=== PATIENT | male | born 1945 | race Caucasian/White ===

== ENCOUNTER 2018-09-06 08:45 | Outpatient (REF) | payer MEDICARE, OTHER, SELFPAY ==
[2018-09-06 12:16] LABS: HCT 47.9 % (40.0-50.0); HGB 16.1 g/dL (13.5-17.5); Mean Corp. HGB Concentration 33.6 g/dL (32.0-36.0); Mean Corpuscular Hemoglobin 31.7 pg (27.0-33.0); Mean Corpuscular Volume 94.3 fL (80-95); Mean Platelet Volume 11.2 fL (8.0-11.0); Platelet Count 173 x1000/uL (130-400); RBC 5.08 m/cumm (4.50-6.00); RBC Distribution Width 12.7 % (11.8-14.1); White Blood Cell Count 5.56 k/cumm (4.4-10.8)
[2018-09-06 13:04] LABS: ALT 36 U/L (12-78); AST 25 U/L (15-37); Albumin 3.9 g/dL (3.4-5.0); Alkaline Phosphatase 65 U/L (46-116); Anion Gap 6.4 mmol/L (3-11); BUN 19 mg/dL (7-18); Bilirubin, Total 0.9 mg/dL (0.2-1.0); CO2 31.6 mmol/L (21.0-32.0); Calcium 9.5 mg/dL (8.5-10.1); Chloride 105 mmol/L (98-107); Cholesterol 198 mg/dL (50-200); Glucose 108 mg/dL (70-100); HDL Cholesterol 53 mg/dL (40-60); LDL CHOLESTEROL 118 mg/dL (<100); Potassium 4.6 mmol/L (3.5-5.1); Sodium 143 mmol/L (136-145); Total Protein 7.2 g/dL (6.4-8.2); Triglyceride 124 mg/dL (30-150)
== END 2018-09-06 09:05 ==
LOC: NCHCN 08:45
PROVIDERS: PCP Internal Medicine; Visit Provider Internal Medicine
DX: I48.0 Paroxysmal atrial fibrillation (principal); K76.0 Fatty (change of) liver, not elsewhere classified; E78.5 Hyperlipidemia, unspecified
CPT/HCPCS: 80053; 80061; 83721; 85027

== ENCOUNTER 2018-09-16 00:59 | Outpatient (CLI) | payer MEDICARE, OTHER, SELFPAY ==
--- NOTE | 2018-09-16 12:00 | DI.MRI_ITS ---
SYMPTOMS/DIAGNOSIS: LUMBAR SPINAL STENOSIS, M48.06 MRI OF THE LUMBAR SPINE: Routine noncontrast examination. Comparison 12/28/14. The conus medullaris has a normal appearance and location. At L 5 - S 1 there is disc desiccation. There is a diffuse disc bulge and a small central disc herniation. There are hypertrophic changes of the facets. These all contribute to cause mild narrowing of the central spinal canal. There is moderate right and mild left neural foraminal stenosis. At L 4 - 5 there does appear to be grade I pseudospondylolisthesis of L 4 on L 5. Disc desiccation is present. There are endplate osteophytes and degenerative endplate signal changes. There is a diffuse disc bulge. There are hypertrophic changes of the facets and ligament of flavum. These all contribute to cause severe central canal spinal stenosis. There is also severe right and moderately severe left neural foraminal stenosis. There does appear to be compression of the exiting nerve roots bilaterally right greater than left. At L 3 - 4 there is disc desiccation. Endplate degenerative signal changes and osteophytes are present. There is a diffuse disc bulge. There are hypertrophic changes of the facets and ligament of flavum causing severe central spinal canal stenosis. There is moderately severe right and moderate left neural foraminal stenosis. There does appear to be compression of right exiting nerve root. At L 2 - 3 there is a diffuse disc bulge. There is degenerative disc disease and endplate degenerative signal changes. There is severe central canal spinal stenosis which results. Mild left neural foraminal stenosis is seen. No significant right neural foraminal stenosis is present. At L 1 - 2 there is a diffuse disc bulge. There are hypertrophic changes of the facets and ligament of flavum causing moderate to severe central spinal canal stenosis. Mild left neural foraminal stenosis is seen. Apart from the degenerative endplate signal changes, the marrow signal is within normal limits. IMPRESSION: Multi-level degenerative changes of the lumbar spine resulting in multi-level central spinal canal and neural foraminal stenosis. The findings are most marked at L 3 - 4 and L 4 - 5. Please see the above discussion for complete details.
== END 2018-09-16 01:19 ==
PROVIDERS: PCP Internal Medicine; Visit Provider Internal Medicine
DX: M48.07 Spinal stenosis, lumbosacral region (principal); M51.27 Other intervertebral disc displacement, lumbosacral region
CPT/HCPCS: 72148

== ENCOUNTER → 2018-10-17 09:52 | Outpatient (BNVA) | payer MEDICARE, OTHER, SELFPAY | PROVIDERS: PCP Internal Medicine; Referring Provider Internal Medicine; Visit Provider Physical Therapy Assistant | DX: Z12.11 Encounter for screening for malignant neoplasm of colon (principal); Z86.010 Personal history of colon polyps; Z79.01 Long term (current) use of anticoagulants; I10 Essential (primary) hypertension; I48.91 Unspecified atrial fibrillation ==

== ENCOUNTER 2018-11-11 07:04 | Day surgery (SDC) | payer MEDICARE, OTHER, SELFPAY ==
[2018-11-11 07:15] VITALS: BP 112/77; PULSE 70; RESP 16; TEMP 35.7; O2SAT 97
[2018-11-11] MEDS: Lactated Ringers 1,000 ML 80 ML IV (07:46)
--- NOTE | 2018-11-11 08:31 | BOWEL_PTH ---
PATIENT: Nakul Sam LOC: [facility] U#:[id number] AGE/SX: 73/M ROOM: RE11/11/[address]: Marisol Florence : 1945 BED: DIS: 11/11/2018 SPEC #: [id number] RECD: 11/11/18 11:54 STATUS: CLARISSA REQ #: [id number] VENICE: 11/11/18 08:[address]: Marisol Florence DEPT: Surgical Specimen RECD BY: Maisha Roman ENTERED: 11/11/18 11:57 SP TYPE: Bowel OTHR DR: Garcia Gonzales Tissues: 1 - BIOPSY BOWEL 2 - BIOPSY BOWEL 3 - BIOPSY BOWEL 4 - BIOPSY BOWEL 5 - HEMORRHOIDS Procedures: GROSS AND MICRO LEVEL 4 GROSS AND MICRO LEVEL 3 Comments: [id number]
[2018-11-11] MEDS: Bupivacaine LIPOSOME/PF 133 MG/10 ML VIAL IJ (09:21)
--- NOTE | 2018-11-11 09:32 | PDOC.DSDIS_ITS ---
Discharge Plan Disposition Patient Disposition: HOME Condition: Good Discharge Details Reason For Visit: CE for polyps Attending Provider: Marisol Florence Primary Care Provider: Garcia Gonzales Home Meds and New Rx's Prescriptions: New dibucaine 1 % ointment 1 applic [place] QID PRN (Reason: rectal discomfort) Qty: 56.7 RF: 5 sennosides-docusate sodium [Senna Laxative-Stool Softener] 8.6-50 mg tablet 1 tab PO BID Qty: 60 RF: 5 ibuprofen 600 mg tablet 600 mg PO QID PRN (Reason: deidra) Qty: 60 RF: 3 oxycodone 5 mg tablet 5 mg PO Q6H PRN PRN (Reason: p) Qty: 10 RF: 0 Continued ipratropium bromide 0.03 % spray,non-aerosol 2 spray CICI BID PRNRF: 0 sildenafil 100 mg tablet 100 mg PO DAILY PRNRF: 0 atorvastatin 10 mg tablet 10 mg PO HS RF: 0 metoprolol succinate 25 mg cap,sprinkle,ER 24hr dose pack 25 mg PO HS RF: 0 bisacodyl [Dulcolax (bisacodyl)] 5 mg tablet,delayed release (DR/EC) 5 mg PO ONCE Qty: 4 RF: 0 cholecalciferol (vitamin D3) 1,000 UNITS tablet 1,000 unit PO DAILY RF: 0 Ocuvite with Lutein 1 EACH tablet 1 tab PO DAILY RF: 0 Discontinued Eliquis 5 mg tablet 5 mg PO BID RF: 0 polyethylene glycol 3350 17 gram/dose powder 238 g PO ONCE Qty: 238 RF: 0 Discharge Instructions Instructions: High Fiber Diet (GEN) Additional Instructions: Home Care Instructions after Rectal Surgery Pain/muscle spasms are normal after surgery. Use the prescribed pain medications, valium and topical creams. Do not use any other creams unless specifically prescribed for you. Do not take the pain medication and valium at the same time. It takes oral pain meds an hour to take effect. Do not get behind on your pain meds. You can alternate with NSAID?s (ibuprofen -600mg) every 8 hours. Take with food; do not take if you have ulcers or sensitivity to aspirin. Constipation occurs with the use of narcotic pain medications. The first bowel movement after surgery will be painful. Do not let yourself get constipated. Stay on a stool softener while you are on the narcotics. It is recommended that you use a fiber supplement (Metamucil, Citrucel) daily (1 tablespoon in 8 oz of water). If you do not have a bowel movement daily, use Milk of Magnesia or Miralax. It is normal to have bleeding or drainage after rectal surgery; especially when you move your bowels. Use a sanitary napkin to collect the discharge. If you are passing large clots or having to change the pad more than every 4 hours, call the clinic or go to the ER. You may experience spasms in the rectal muscles. This is normal after surgery and last for about two weeks. They can become more intense with bowel movements. You can use the valium as a muscle relaxant (do not take at the same time as the pain medications). You can also try sitz bathes (sitting in a bath tub of PLAIN lukewarm water; soap can add to rectal irritation). Or you can try ice packs. You will have to see what works best for you. It is ok to shower. Avoid soap on the surgical area. Use a pillow to sit on. Follow a mild bland diet. Avoid alcohol, spicy food, citrus, and tomatoes. Avoid strenuous activity (running, jogging, and power walking, swimming, weight lifting) for two weeks. No lifting over 5 pounds for 2 weeks[address] if taking pain medications, or cannot turn or twist your body without hesitation. You can return to work when you are no longer taking the pain meds, can sit comfortably for 8 hours or when the weight restrictions are lifted. Urinary retention is common. Sit in a warm tub to try to relax the bladder. If you are unable to urinate after 8 hours, call the office or go to the ER. If you have packing in place, follow the directions for doing the dressing changes. If you have stitches in place, they will fall out in about 7-10 days. They may develop an ?odor?. Follow up in 2 weeks- call the office for an appointment. After hours= ER: Home Care Instructions after Rectal Surgery Pain/muscle spasms are normal after surgery. Use the prescribed pain medications, valium and topical creams. Do not use any other creams unless specifically prescribed for you. Do not take the pain medication and valium at the same time. It takes oral pain meds an hour to take effect. Do not get behind on your pain meds. You can alternate with NSAID?s (ibuprofen -600mg) every 8 hours. Take with food; do not take if you have ulcers or sensitivity to aspirin. Constipation occurs with the use of narcotic pain medications. The first bowel movement after surgery will be painful. Do not let yourself get constipated. Stay on a stool softener while you are on the narcotics. It is recommended that you use a fiber supplement (Metamucil, Citrucel) daily (1 tablespoon in 8 oz of water). If you do not have a bowel movement daily, use Milk of Magnesia or Miralax. It is normal to have bleeding or drainage after rectal surgery; especially when you move your bowels. Use a sanitary napkin to collect the discharge. If you are passing large clots or having to change the pad more than every 4 hours, call the clinic or go to the ER. You may experience spasms in the rectal muscles. This is normal after surgery and last for about two weeks. They can become more intense with bowel movements. You can use the valium as a muscle relaxant (do not take at the same time as the pain medications). You can also try sitz bathes (sitting in a bath tub of PLAIN lukewarm water; soap can add to rectal irritation). Or you can try ice packs. You will have to see what works best for you. It is ok to shower. Avoid soap on the surgical area. Use a pillow to sit on. Follow a mild bland diet. Avoid alcohol, spicy food, citrus, and tomatoes. Avoid strenuous activity (running, jogging, and power walking, swimming, weight lifting) for two weeks. No lifting over 5 pounds for 2 weeks. No [address] if taking pain medications, or cannot turn or twist your body without hesitation. You can return to work when you are no longer taking the pain meds, can sit comfortably for 8 hours or when the weight restrictions are lifted. Urinary retention is common. Sit in a warm tub to try to relax the bladder. If you are unable to urinate after 8 hours, call the office or go to the ER. If you have packing in place, follow the directions for doing the dressing changes. If you have stitches in place, they will fall out in about 7-10 days. They may develop an ?odor?. Follow up in 2 weeks- call the office for an appointment, _ After hours= ER: _ Home Care Instructions after Rectal Surgery Pain/muscle spasms are normal after surgery. Use the prescribed pain medications, valium and topical creams. Do not use any other creams unless specifically prescribed for you. Do not take the pain medication and valium at the same time. It takes oral pain meds an hour to take effect. Do not get behind on your pain meds. You can alternate with NSAID?s (ibuprofen -600mg) every 8 hours. Take with food; do not take if you have ulcers or sensitivity to aspirin. Constipation occurs with the use of narcotic pain medications. The first bowel movement after surgery will be painful. Do not let yourself get constipated. Stay on a stool softener while you are on the narcotics. It is recommended that you use a fiber supplement (Metamucil, Citrucel) daily (1 tablespoon in 8 oz of water). If you do not have a bowel movement daily, use Milk of Magnesia or Miralax. It is normal to have bleeding or drainage after rectal surgery; especially when you move your bowels. Use a sanitary napkin to collect the discharge. If you are passing large clots or having to change the pad more than every 4 hours, call the clinic or go to the ER. You may experience spasms in the rectal muscles. This is normal after surgery and last for about two weeks. They can become more intense with bowel movements. You can use the valium as a muscle relaxant (do not take at the same time as the pain medications). You can also try sitz bathes (sitting in a bath tub of PLAIN lukewarm water; soap can add to rectal irritation). Or you can try ice packs. You will have to see what works best for you. It is ok to shower. Avoid soap on the surgical area. Use a pillow to sit on. Follow a mild bland diet. Avoid alcohol, spicy food, citrus, and tomatoes. Avoid strenuous activity (running, jogging, and power walking, swimming, weight lifting) for two weeks. No lifting over 5 pounds for 2 weeks. No driving if taking pain medications, or cannot turn or twist your body without hesitation. You can return to work when you are no longer taking the pain meds, can sit com fortably for 8 hours or when the weight restrictions are lifted. Urinary retention is common. Sit in a warm tub to try to relax the bladder. If you are unable to urinate after 8 hours, call the office or go to the ER. If you have packing in place, follow the directions for doing the dressing changes. If you have stitches in place, they will fall out in about 7-10 days. They may develop an ?odor?. Follow up in 2 weeks- call the office for an appointment, _ After hours= ER: _ Findings: multiple polyps diverticular Dx thrombosed hemorrhoid Follow up: Dr. Florence next Please call if you develop: fevers >101.5 Nausea or Vomiting Abdominal pain that is not transient DAY SURGERY UNIT POST COLONOSCOPY INSTRUCTIONS Do not take elequis/blood thinners until follow up appt -see instruction sheet/instructions for care after hemorrhoid surgery 1. Because there will be medication in your system for the next 24 hours, you may feel a little sleepy. Your coordination will be affected. Therefore: a. Do not drive or operate dangerous equipment for 24 hours. b. Do not drink alcohol beverages for 24 hours (not even beer). c. Plan to go home and rest for the day. 2. Generally there are no restrictions on your activity after a day or so has gone by, but you may feel a bit fatigued for a few days. 3 After you arrive home you may have a light meal and return to a normal diet as you can tolerate it without feeling sick to your stomach. 4. After surgery, you may feel pain or discomfort. This should be only transient, but if it persists please contact your doctor. 5. If there are any questions regarding the findings of your procedure, please feel free to contact your doctor. 6. If you are unable to contact your doctor with a problem, contact the hospital at [phone]. 7. Continue all your regular medications unless directed otherwise. I understand the above instructions and have no questions. Signature of Patient or Responsible Adult Escort Date/Time Name of Responsible Adult Escort Signature of Nurse Date/Time Activity:: see above Diet:: As Tolerated Discharge Orders Discharge Orders: Discharge Order (Routine); Ordered 11/11/18 Ordered By: Marisol Florence Discharge Data Discharge Date/Time-TO BE ENTERED AT DEPARTURE: 11/11/18 11:45 Discharge Comment: DC'D HOME WITH S.O. STABLE. DS: Diagnosis Discharge Diagnosis (1) Adenomatous polyps: Status: Acute (2) Diverticular disease of colon: Status: Acute (3) Thrombosed external hemorrhoid: Status: Acute (4) Internal hemorrhoids with complication: Status: Acute
--- NOTE | 2018-11-11 09:52 | COLE_ITS ---
Date of service: 11/11/18 Time of Service: 09:51 Colonoscopy Report Date of procedure: 11/11/18 Pre-op diagnosis general: A. polyps Post-op diagnosis procedure note: other (diverticular Dx. Thrombosed Ext hem. I. hemorrhoids ) Procedure: CE w/polypectomy x10. x2 hot snare. x8 cold biter drainage of thrombosed hemorrhoid and banding of internal hemorrhoid. Pt stated that he did have chronic anal leakage. His PT told him he had hemorrhoids. Pt dis express that he did want to have something done about hemorrhoids prior to going back for CE. Surgeon: Marisol Florence Anesthesia proc note operative: GETA Estimated blood loss (mL): 5 Pathology: other Complications: None Disposition: same day Prep: Miralax Retraction Time: 20 mins Procedure Description: After informed consent was obtained the patient was taken to the procedure room and placed in a left decubitous position. Monitors were applied and a time out was done. The patients name, date of , procedure, allergies to medications and metal in their body was reviewed. The patient was then sedated. Once sedated and comfortable a rectal exam was done. External exam was normal. He has a medium thromboses ext. hemorrhoid Internal exam revealed a normal sphincter tone and no palpable masses. Grade III internal hemorrhoids x3 The scope was then introduced and retrofelexed. The scope was then advanced to the cecum without difficulty. The TI and appendiceal orifice were identified. The prep was good. The scope was then slowly retracted over 20 minutes back into the rectum. Polyps were removed at cecum w/ hot snare. polyps x6 at 80cm/ascending colon w/ cold biter. Polyps at 70cm/ascending cold w/ cold biter. Splenic flexure polyp at 50cm w/ hot snare. all specimen is retrieved and no bleeding is noted. He does have moderate diverticular Dx confined to the sigmoid colon- no active infection or bleeding. The thrombosed hemorrhoid and internal hemorrhoids are addressed in a separate noted. The scope was removed and the patient was woken up and taken back to Same day surgery in stable condition. The patient tolerated the procedure well and there were no immediate complicat ions. Follow up: The patient should follow up in 1 years unless they develop changes in bowel habits or other new gastrointestinal complaints. no asa/nsaid's for 2 wks pt given instructions for hemorhoidal care
[2018-11-11 10:00] VITALS: BP 115/74; PULSE 85; RESP 18; TEMP 35.6; O2SAT 100
--- NOTE | 2018-11-16 08:15 | ROE_ITS ---
REPORT OF OPERATIVE PROCEDURE DATE OF PROCEDURE November 11, 2018 PREOPERATIVE DIAGNOSIS Anal leakage. POSTOPERATIVE DIAGNOSES Thrombosed external hemorrhoid and grade III internal hemorrhoids. SURGEON Marisol Florence M.D. ANESTHESIA MAC/General. ESTIMATED BLOOD LOSS 5 cc COMPLICATIONS The patient tolerated the procedure well without complication. INDICATIONS Mr. Sam is a 73-year-old male who is here today for a colonoscopy. He indicated that he has had some problems with anal leakage and would like to have this taken care of. At the time of his colonoscopy, he was found to have a large thrombosed external hemorrhoid and some large internal hemorrhoids as well. So, I decided to perform banding and excision of the thrombosed hemorrhoids and that the global consent did cover this. DESCRIPTION OF PROCEDURE The area was prepped and draped in the usual sterile fashion using Betadine scrub solution. The area was infiltrated with 10 cc of 0.25% Marcaine with epi. The thrombosed hemorrhoid was then opened up and then tissue excised. All the clot was removed and it was closed with #3-0 Vicryl in a running fashion, this was at the 11 o'clock position. He also had three internal hemorrhoids and these were banded. No bleeding was noted. The patient tolerated the procedure well and was transferred to the Recovery Room in stable condition. CC: Garcia Gonzales M.D.
== END 2018-11-11 11:45 | disposition home or self-care (01) ==
PROVIDERS: PCP Internal Medicine; Visit Provider Surgery
PROC: 0DJD8ZZ Inspection of Lower Intestinal Tract, Via Natural or Artificial Opening Endoscopic (ICD-10-PCS; CPT 45378; principal; 2018-11-11 08:15)
PROC: (CPT 45385; 2018-11-11 08:15)
DX: Z12.11 Encounter for screening for malignant neoplasm of colon (principal); K64.2 Third degree hemorrhoids; Z79.01 Long term (current) use of anticoagulants; Z86.010 Personal history of colon polyps; D12.0 Benign neoplasm of cecum; D12.2 Benign neoplasm of ascending colon; D12.3 Benign neoplasm of transverse colon; K64.5 Perianal venous thrombosis
CPT/HCPCS: 45385; 45380; 88305; 88304; J2405

== ENCOUNTER → 2018-11-17 10:12 | Outpatient (BNVA) | payer MEDICARE, OTHER, SELFPAY | PROVIDERS: PCP Internal Medicine; Referring Provider Internal Medicine; Visit Provider Surgery | DX: K64.8 Other hemorrhoids (principal); K64.5 Perianal venous thrombosis ==

== ENCOUNTER → 2018-12-05 10:30 | Outpatient (BNVA) | payer MEDICARE, OTHER, SELFPAY | PROVIDERS: PCP Internal Medicine; Referring Provider Internal Medicine; Visit Provider Surgery | DX: Z48.815 Encounter for surgical aftercare following surgery on the digestive system (principal); K64.8 Other hemorrhoids ==

== ENCOUNTER 2018-12-08 00:40 | Outpatient (CLI) | payer MEDICARE, OTHER, SELFPAY ==
--- NOTE | 2018-12-08 10:54 | DI.MRI_ITS ---
SYMPTOMS/DIAGNOSIS: CERVICAL ARTHRITIS WITH MYELOPATHY, M47.12 MRI OF THE CERVICAL SPINE: Routine examination was performed. There are no priors for comparison. At C 2 - 3 there is no focal disc herniation, central spinal canal or neural foraminal stenosis. At C 3 - 4 there is no focal disc herniation, central spinal canal or neural foraminal stenosis. At C 4 - 5 there are degenerative changes seen at the uncovertebral joints resulting in moderate right and mild left neural foraminal narrowing. There is mild central spinal canal stenosis. There is 0.3 cm of anterior subluxation of C 4 on C 5. At C 5 - 6 there is prominence of the osteophyte disc complex with mild narrowing of the central spinal canal. There are degenerative changes of the uncovertebral joints bilaterally causing mild bilateral neural foraminal stenosis. At C 6 - 7 there is no significant central spinal canal or neural foraminal stenosis. At C 7 - T 1 there is mild anterior subluxation of C 7 on T 1. There is prominence of the osteophyte disc complex. There are degenerative changes of the uncovertebral joint and ligament of flavum hypertrophy causing moderately severe central spinal canal stenosis. There is severe bilateral neural foraminal stenosis present. There is effacement of the spinal cord but normal signal is present. At T 1 - 2 there is mild anterior subluxation of T 1 on T 2. There is prominence of the osteophyte disc complex and degenerative changes of the uncovertebral joints. The findings cause severe central spinal canal stenosis. There is compression of the spinal cord with minimal increased T 2 signal seen within the spinal cord at this level. Bilateral neural foraminal stenosis is present. IMPRESSION: 1. Multi-level severe degenerative changes in the lower lumbar spine as described. 2. The findings are most marked at T 1 - 2 where there is severe central spinal canal and neural foraminal stenosis resulting in spinal cord compression and mild hyperintense T 2 signal within the spinal cord. This may represent cord edema vs myelomalacic change.
--- NOTE | 2018-12-08 16:54 | DI.VRAD_ITS ---
Addendum created by Robert Anthony MD on 12/08/2018 5:45:21 PM EDT Findings were discussed with Dr. Gomes at 12/08/2018 5:44 PM EDT. Addendum created by Robert Anthony MD on 12/08/2018 5:25:53 PM EDT THIS REPORT CONTAINS FINDINGS THAT MAY BE CRITICAL TO PATIENT CARE. The findings were verbally communicated via telephone conference with Dr. Gonzales at 5:25 PM EDT on 12/08/2018. The findings were acknowledged and understood. Initial report created on 12/08/2018 4:53:14 PM EDT EXAM: MR Cervical Spine Without Contrast EXAM DATE/TIME: 12/08/2018 10:47 AM CLINICAL HISTORY: 73 years old, male; Signs and symptoms; Other: Cervical arthritis w/ myelopathy TECHNIQUE: Imaging protocol: Multiplanar magnetic resonance images of the cervical spine without contrast. COMPARISON: No relevant prior studies available. FINDINGS: Cervical vertebral body heights are intact. Straightening of the cervical lordosis. The dens is intact. No abnormal marrow signal. Degenerative 3-0.3 cm anterior subluxation of C4 on C5. Degenerative 0.4 cm anterior subluxation of C7 on T1 and T1 on T2. Visualized structures of the posterior fossa are unremarkable. Soft tissues are unremarkable. C2-C3: No significant canal or foraminal narrowing. C3-C4: No significant canal or foraminal narrowing. C4-C5: Uncovertebral spurring causes moderate right and mild left foraminal narrowing. Mild canal narrowing. C5-C6: Broad-based disc protrusion and uncovertebral spurring causing mild canal narrowing and mild bilateral foraminal narrowing. C6-C7: No significant canal or foraminal narrowing. C7-T1: Combination of anterior subluxation, broad-based disc protrusion, thickening of the ligamentum flavum, and uncovertebral spurring causes severe canal narrowing with slight effacement of the anterior spinal cord. Severe bilateral foraminal narrowing. T1-T2: Combination of anterior subluxation, broad-based disc protrusion, thickening of the ligamentum flavum, and facet arthropathy causes severe canal narrowing with mild compression of the spinal cord and minimal central abnormal T2 hyperintense cord signal. Severe bilateral foraminal narrowing. IMPRESSION: Severe spondylotic changes of the visualized spine from C6 through T2, with severe canal narrowing and mild cord compression at T1-T2. Minimal central abnormal T2 hyperintense cord signal at the T1-T2 level, concerning for cord edema versus myelomalacic change. Dictated and Authenticated by: Robert Anthony MD. Ordering:CINTHIA Nation MD
== END 2018-12-08 01:00 ==
PROVIDERS: PCP Internal Medicine; Visit Provider Neurological Surgery
DX: M47.12 Other spondylosis with myelopathy, cervical region (principal); M48.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, cervicothoracic region
CPT/HCPCS: 72141

== ENCOUNTER 2018-12-30 17:05 | Outpatient (REF) | payer MEDICARE, OTHER, SELFPAY ==
[2018-12-30 21:18] LABS: HCT 44.8 % (40.0-50.0); HGB 15.1 g/dL (13.5-17.5); Mean Corp. HGB Concentration 33.7 g/dL (32.0-36.0); Mean Corpuscular Hemoglobin 31.4 pg (27.0-33.0); Mean Corpuscular Volume 93.1 fL (80-95); Mean Platelet Volume 11.8 fL (8.0-11.0); Platelet Count 167 x1000/uL (130-400); RBC 4.81 m/cumm (4.50-6.00); RBC Distribution Width 12.7 % (11.8-14.1); White Blood Cell Count 6.32 k/cumm (4.4-10.8)
[2018-12-30 21:22] LABS: Anion Gap 11.8 mmol/L (3-11); BUN 17 mg/dL (7-18); CO2 25.2 mmol/L (21.0-32.0); CREATININE 0.72 mg/dL (0.70-1.30); Calcium 8.7 mg/dL (8.5-10.1); Chloride 106 mmol/L (98-107); Glucose 100 mg/dL (70-100); Potassium 4.1 mmol/L (3.5-5.1); Sodium 143 mmol/L (136-145)
[2018-12-30 21:23] LABS: INR 1.1 (0.9-1.1); Prothrombin Time 10.9 sec (9.3-11.0)
== END 2018-12-30 17:25 ==
LOC: NCHCN 17:05
PROVIDERS: PCP Internal Medicine; Visit Provider Internal Medicine
DX: I48.0 Paroxysmal atrial fibrillation (principal); Z79.01 Long term (current) use of anticoagulants; I10 Essential (primary) hypertension; Z22.322 Carrier or suspected carrier of Methicillin resistant Staphylococcus aureus; M48.062 Spinal stenosis, lumbar region with neurogenic claudication; M48.02 Spinal stenosis, cervical region; Z01.818 Encounter for other preprocedural examination
CPT/HCPCS: 80048; 85027; 87081; 85610

== ENCOUNTER 2019-01-03 00:47 | Outpatient (CLI) | payer MEDICARE, OTHER, SELFPAY ==
--- NOTE | 2019-01-03 10:12 | DI.RAD_ITS ---
SYMPTOM/DIAGNOSIS: CERVICAL SPINE STENOSIS M48.02 PA AND LATERAL CHEST: 01/03/19 The heart is normal in size. The lungs are clear. The mediastinal structures and pleura appear intact. CONCLUSION: Normal chest.
== END 2019-01-03 01:07 ==
PROVIDERS: PCP Internal Medicine; Visit Provider Internal Medicine
DX: M48.02 Spinal stenosis, cervical region (principal)
CPT/HCPCS: 71046

== ENCOUNTER 2019-05-01 12:42 | Outpatient (REF) | payer MEDICARE, OTHER, SELFPAY ==
[2019-05-01 20:39] LABS: HCT 46.7 % (40.0-50.0); HGB 15.5 g/dL (13.5-17.5); Mean Corp. HGB Concentration 33.2 g/dL (32.0-36.0); Mean Corpuscular Hemoglobin 29.9 pg (27.0-33.0); Mean Platelet Volume 11.2 fL (8.0-11.0); Platelet Count 186 x1000/uL (130-400); RBC 5.19 m/cumm (4.50-6.00); RBC Distribution Width 14.2 % (11.8-14.1); White Blood Cell Count 5.96 k/cumm (4.4-10.8)
[2019-05-01 20:45] LABS: INR 1.1 (0.9-1.1); Prothrombin Time 10.9 sec (9.3-11.0)
[2019-05-01 20:46] LABS: Anion Gap 12.1 mmol/L (3-11); BUN 21 mg/dL (7-18); CO2 24.9 mmol/L (21.0-32.0); CREATININE 0.73 mg/dL (0.70-1.30); Calcium 8.9 mg/dL (8.5-10.1); Chloride 107 mmol/L (98-107); Glucose 124 mg/dL (70-100); Sodium 144 mmol/L (136-145)
== END 2019-05-01 13:02 ==
LOC: NCHCN 12:42
PROVIDERS: PCP Internal Medicine; Visit Provider Specialist/Technologist Athletic Trainer
DX: I48.0 Paroxysmal atrial fibrillation (principal); M48.02 Spinal stenosis, cervical region; Z01.818 Encounter for other preprocedural examination
CPT/HCPCS: 80048; 85027; 85610

== ENCOUNTER 2019-07-03 12:36 | Outpatient (REF) | payer MEDICARE, OTHER, SELFPAY ==
[2019-07-03 21:19] LABS: HCT 35.4 % (40.0-50.0); HGB 11.2 g/dL (13.5-17.5); Mean Corp. HGB Concentration 31.6 g/dL (32.0-36.0); Mean Corpuscular Hemoglobin 27.9 pg (27.0-33.0); Mean Corpuscular Volume 88.3 fL (80-95); Mean Platelet Volume 10.5 fL (8.0-11.0); Platelet Count 312 x1000/uL (130-400); RBC 4.01 m/cumm (4.50-6.00); RBC Distribution Width 13.3 % (11.8-14.1); White Blood Cell Count 7.09 k/cumm (4.4-10.8)
[2019-07-03 21:52] LABS: Anion Gap 9.8 mmol/L (3-11); BUN 14 mg/dL (7-18); CO2 27.2 mmol/L (21.0-32.0); CREATININE 0.75 mg/dL (0.70-1.30); Chloride 106 mmol/L (98-107); Glucose 138 mg/dL (74-106); Potassium 3.8 mmol/L (3.5-5.1); Sodium 143 mmol/L (136-145)
== END 2019-07-03 12:56 ==
LOC: NCHCN 12:36
PROVIDERS: PCP Internal Medicine; Visit Provider Internal Medicine
DX: D50.0 Iron deficiency anemia secondary to blood loss (chronic) (principal); I48.0 Paroxysmal atrial fibrillation; E87.1 Hypo-osmolality and hyponatremia; R10.31 Right lower quadrant pain
CPT/HCPCS: 80048; 85027

== ENCOUNTER 2019-09-06 16:21 | Outpatient (REF) | payer MEDICARE, OTHER, SELFPAY ==
[2019-09-06 22:30] LABS: HCT 38.9 % (40.0-50.0); HGB 12.2 g/dL (13.5-17.5); Mean Corp. HGB Concentration 31.4 g/dL (32.0-36.0); Mean Corpuscular Hemoglobin 24.8 pg (27.0-33.0); Mean Corpuscular Volume 79.2 fL (80-95); Mean Platelet Volume 10.8 fL (8.0-11.0); Platelet Count 234 x1000/uL (130-400); RBC 4.91 m/cumm (4.50-6.00); RBC Distribution Width 15.8 % (11.8-14.1); White Blood Cell Count 6.49 k/cumm (4.4-10.8)
[2019-09-06 22:45] LABS: Anion Gap 9.9 mmol/L (3-11); BUN 21 mg/dL (7-18); CO2 26.1 mmol/L (21.0-32.0); CREATININE 0.76 mg/dL (0.70-1.30); Calcium 7.8 mg/dL (8.5-10.1); Chloride 106 mmol/L (98-107); Glucose 92 mg/dL (74-106); Potassium 3.9 mmol/L (3.5-5.1); Sodium 142 mmol/L (136-145)
[2019-09-06 22:48] LABS: Bacteria Rare HPF (Negative); Crystals Negative HPF (Negative); Epithelial Cells Few HPF (Negative); Mucus Negative (Negative); RBC >50 HPF (0-2)
[2019-09-06 22:49] LABS: C & S Indicated? C&S Done As Ordered
[2019-09-08 10:18] LABS: PSA, Diagnostic 5.1 ng/mL (0.0-6.5)
== END 2019-09-06 16:41 ==
LOC: NCHCN 16:21
PROVIDERS: PCP Internal Medicine; Visit Provider Specialist/Technologist Athletic Trainer
DX: R31.9 Hematuria, unspecified (principal); R10.32 Left lower quadrant pain
CPT/HCPCS: 80048; 85027; 81015; 84153; 87086

== ENCOUNTER 2019-09-07 01:36 | Outpatient (CLI) | payer MEDICARE, OTHER, SELFPAY ==
--- NOTE | 2019-09-07 12:42 | DI.US_ITS ---
EXAM: US RENAL CLINICAL HISTORY: FLANK PAIN, R10.9, LT > RT WITH HEMATUIRA. TECHNIQUE: Mast scale, color and spectral Doppler were used. COMPARISON: No exams were available for comparison FINDINGS: Renal size in cm: Right: 12.1 left: 11.0 Echogenicity: Normal Hydronephrosis: No Cyst or mass: Small bilateral renal cysts, the largest at the upper pole of the right kidney measurin g 2.1 cm. Nephrolithiasis: No No perinephric collections are seen. Bladder:Not well evaluated due to poor distension on prevoid images. Prevoid vol: 24 cc Postvoid vol:0 cc IMPRESSION: No evidence of hydronephrosis. No renal calculi are visible. DATA REPOSITORY:
== END 2019-09-07 01:56 ==
PROVIDERS: PCP Internal Medicine; Visit Provider Specialist/Technologist Athletic Trainer
DX: R10.32 Left lower quadrant pain (principal); R31.9 Hematuria, unspecified; N28.1 Cyst of kidney, acquired
CPT/HCPCS: 76770

== ENCOUNTER 2019-09-13 02:13 | Outpatient (CLI) | payer MEDICARE, OTHER, SELFPAY ==
[2019-09-13] MEDS: Omnipaque 350 MG/ML 100 ML BTL IJ (10:31)
[2019-09-13] MEDS: Normal Saline - Diluent 50 ML VIAL IV (10:36)
--- NOTE | 2019-09-13 10:42 | DI.CT_ITS ---
EXAM: CT ABDOMEN PELVIS WO/W CLINICAL HISTORY: GROSS HEMATURIA, R31.0 TECHNIQUE: CT examination of the abdomen and pelvis was performed utilizing CT urogram protocol. COMPARISON: No exams were available for comparison FINDINGS: Images obtained through the lung bases are unremarkable. The liver, spleen, and pancreas appear int act. Note is made of cholelithiasis without biliary dilatation. Abdominal aorta and major branches are unremarkable. No significant abdominal wall hernia. No signi ficant abdominal or pelvic adenopathy. Appendix appears normal. No evidence of diverticulitis or netta wel obstruction. The adrenals appear normal bilaterally. Right kidney contains a simple cyst measuring 2.7 cm in diam eter. Left kidney contains multiple small intermediate attenuation lesions including an approximatel y 15 millimeter in diameter medial midpole lesion with attenuation about 43 lateral midpole lesion me asuring about 11 mm in 29 Hounsfield units, these do appear to enhance on the venous phase images. These have appearance raising possibility of small renal malignancy. Close follow-up or tissue sampl ing may be considered. No hydronephrosis on the right. No right renal or ureteral calculi. On the left there is no gross hydronephrosis. The distal ureter is mildly dilated and there is an ap proximately 5 millimeter in diameter stone which appears to be associated with the left ureterovesica l orifice, question focal wall thickening also associated with this area, obstruction and/or underlyi ng bladder wall lesion may be considered. Bladder is incompletely distended and has a questionably m ildly thickened wall which is nonspecific. IMPRESSION: 1. Slight left hydroureter which appears to be associated with a UVJ stone measuring about 5 millimet ers in diameter, question bladder wall mass at this site is also raised and cystoscopy is recommended . 2. Two indeterminate left renal cortical lesions are seen which have characteristics which may repres ent small renal malignancy. Additional evaluation with tissue sampling or close follow-up recommended .
== END 2019-09-13 02:33 ==
PROVIDERS: PCP Internal Medicine; Visit Provider Specialist/Technologist Athletic Trainer
DX: R31.0 Gross hematuria (principal); K80.20 Calculus of gallbladder without cholecystitis without obstruction; N13.4 Hydroureter; N20.0 Calculus of kidney; N28.1 Cyst of kidney, acquired; N28.89 Other specified disorders of kidney and ureter
CPT/HCPCS: 74178; J3490

== ENCOUNTER → 2019-10-12 10:32 | Outpatient (BNVA) | payer MEDICARE, OTHER, SELFPAY | PROVIDERS: PCP Internal Medicine; Referring Provider Internal Medicine; Visit Provider Nurse Practitioner Gerontology | DX: N40.1 Benign prostatic hyperplasia with lower urinary tract symptoms (principal); N32.89 Other specified disorders of bladder; N20.0 Calculus of kidney; R31.0 Gross hematuria | CPT/HCPCS: 81003; 99204; 99215 ==

== ENCOUNTER 2019-10-16 09:45 | Day surgery (SDC) | payer MEDICARE, OTHER, SELFPAY ==
--- NOTE | 2019-10-16 08:15 | W.PM.HP.N ---
Assessment and Plan Assessment and plan (1) Hematuria: Status: Acute Assessment and plan: We will do a cystoscopy to evaluate the bladder lesion. he will need a left retrograde pyelogram and ureteroscopy if no visible bladder tumor is seen. History of Present Illness History of Present Illness Chief Complaint: Abnormal CT scan Narrative: This is a 74-year-old gentleman who had noticed gross hematuria and left flank pain. He had been on chronic anticoagulation for atrial fibrillation. His hematuria stopped with discontinuing the anticoagulant. He did pass some gelatinous material but he has not passed a stone as far as he can tell. He has no prior history of kidney stones. He was evaluated with a CT scan which demonstrated increased tissue at the left trigone with a centrally occurring calcification. It is unclear whether this represents a stone surrounded by edema or a ureterocele, or whether this finding is more suspicious for a bladder cancer. He presents now for cystoscopy with possible transurethral resection of bladder tumor and possible stone manipulation. Review of Systems Narrative: No fevers or chills No vision change or dysphasia No diabetes or thyroid No shortness of breath, cough or hemoptysis No chest pain or palpitations No nausea, vomiting, hepatitis, ulcers, jaundice, diarrhea or constipation No seizures Easy bleeding from Eliquis No gout. Chronic cervical and lumbar issues [facility] Social History (Updated 10/17/18 @ 12:35 by DAVIN Spence) Smoking/Tobacco Use Status: Former Tobacco Use Quit Date: 10/26/77 Alcohol Intake: current Alcohol Intake frequency: 3 or more drinks per day Alcohol type: hard liquor Drug use: Never Substance use type: does not use Do you feel safe at home: Yes Do you feel safe in your relationship?: Yes Meds Home Medications and Allergies Home Medications Medication Instructions Recorded Confirmed Type Ocuvite with Lutein 1 tab PO DAILY 09/25/12 10/16/19 History cholecalciferol (vitamin D3) 1,000 unit PO DAILY 09/25/12 10/16/19 History atorvastatin 10 mg tablet 10 mg PO HS 09/26/18 10/16/19 History ipratropium bromide 0.03 % nasal 2 spray CIIC BID PRN 09/26/18 10/16/19 History spray metoprolol succinate 25 mg capsule 25 mg PO HS 09/26/18 10/16/19 History sprinkle, ext. release 24 hr sildenafil 100 mg tablet 100 mg PO DAILY PRN 09/26/18 10/16/19 History acetaminophen 650 mg 650 mg PO ONCE 12/05/18 10/13/19 History tablet,extended release apixaban 5 mg tablet 5 mg PO BID 12/05/18 10/16/19 History multivitamin 1 tab DAILY 10/13/19 10/16/19 History sennosides-docusate sodium [Senna 1 tab PO BID PRN 10/13/19 10/16/19 History Laxative-Stool Softener] Allergies Allergy/AdvReac Type Severity Reaction Status Date / Time hydrocodone Allergy Psychosis Verified 10/16/19 09:51 methocarbamol Allergy Unverified 10/16/19 09:51 tramadol Allergy Verified 10/16/19 09:51 NSAIDS (Non-Steroidal AdvReac Unknown Verified 10/16/19 09:51 Anti-Inflamma Exam Narrative Exam Narrative: He is in no current distress. He is cooperative. His vital signs are documented elsewhere in the chart His neck is supple with no mass His lungs are clear Cardiac exam shows irregular rate His abdomen is soft with no masses He is awake and alert COVID-19 Screening Traveled to [place] from one of the affected countries or regions?: NO Recent travel in the [place] within the last 8 weeks?: No Recent out of the country travel within the last 8 weeks?: No Exposure or possible exposure to illness during travel?: No Had IN PERSON contact w/suspected or confirmed C-19 person: No Have you had the following symptoms in the past few days?: No
[2019-10-16 09:52] VITALS: BP 140/97; PULSE 81; RESP 16; TEMP 36.4; O2SAT 94
[2019-10-16] MEDS: Lactated Ringers 1,000 ML 80 ML IV (10:28)
[2019-10-16] MEDS: ceFAZolin 1 GM/50 ML BAG IVPB (11:25)
[2019-10-16] MEDS: Lidocaine 2% Jelly 6 ML SYR (11:37)
[2019-10-16] MEDS: Omnipaque 300 MG/ML 50 ML BTL (11:39)
--- NOTE | 2019-10-16 12:03 | W.PM.DSUDISC ---
Discharge Plan Disposition Patient Disposition: HOME Condition: Stable Discharge Details Attending Provider: Clive Galaviz Primary Care Provider: Garcia Gonzales Home Meds and New Rx's Prescriptions: No Action ipratropium bromide 0.03 % spray,non-aerosol 2 spray CICI BID PRNRF: 0 sildenafil 100 mg tablet 100 mg PO DAILY PRNRF: 0 atorvastatin 10 mg tablet 10 mg PO HS RF: 0 metoprolol succinate 25 mg cap,sprinkle,ER 24hr dose pack 25 mg PO HS RF: 0 Eliquis 5 mg tablet 5 mg PO BID RF: 0 acetaminophen 650 mg tablet extended release 650 mg PO ONCE RF: 0 cholecalciferol (vitamin D3) 1,000 UNITS tablet 1,000 unit PO DAILY RF: 0 Ocuvite with Lutein 1 EACH tablet 1 tab PO DAILY RF: 0 multivitamin Tablet 1 tab DAILY RF: 0 sennosides-docusate sodium [Senna Laxative-Stool Softener] 8.6-50 mg tablet 1 tab PO BID PRNRF: 0 Discharge Instructions Additional Instructions: may restart Eliquis when blood no longer visible in urine F/U with renal US 4 to 6 weeks Activity:: Activity as Tolerated Shower/Bathe:: 24 hours Diet:: As Tolerated Discharge Orders Discharge Orders: Discharge Order (Routine); Ordered 10/16/19 Ordered By: Clive Galaviz DS: Diagnosis Discharge Diagnosis (1) Hematuria: Status: Acute
--- NOTE | 2019-10-16 12:05 | DI.RAD_ITS ---
EXAM: XR RETROGRADE IN OR INDICATION: HEMATURIA COMPARISON: No exams were available for comparison TECHNIQUE: 2D and real-time digital imaging was performed Fluoro time: 10.1 sec, 276 mGy FINDINGS: Fluoroscopy was provided during retrograde examination. Please see procedure note for details. DATA REPOSITORY: RADIATION DOSE DELIVERED:
--- NOTE | 2019-10-16 12:18 | ROE_ITS ---
Date of service: 10/16/19 Time of Service: 12:19 Operative Note Operative Note DATE OF PROCEDURE: 10/16/19 PRE-OP DIAGNOSIS: Hematuria POST-OP DIAGNOSIS: same PROCEDURE: Cystoscopy, left retrograde pyelogram, left ureteroscopy SURGEON: Clive Galaviz ANESTHESIA: MAC ESTIMATED BLOOD LOSS: 0 PATHOLOGY: none sent Indications: This is a 74-year-old gentleman who was evaluated for gross hematuria and some left flank discomfort. He underwent a CT scan using a urogram protocol. He had some dilation of the left ureter and kidney. There was a calcification near the left ureterovesical junction. There was increased tissue surrounding this area which raised concern for either a primary bladder mass or reactive tissue around the stone. He no longer has bladder pain, but he has not passed a stone as far as he is aware. He presents for cystoscopy with possible transurethral resection of bladder tumor and possible stone manipulation Findings: No visible bladder tumor No left distal ureteral stone Procedure Description: The patient was brought to the operating room on 10/16/2019. Successful induction of anesthesia using monitored anesthesia care was provided. He was then placed in the dorsal lithotomy position. His genitalia was prepped and draped sterilely. 2% Xylocaine jelly was instilled into the urethra to act as a local anesthetic. The 22 [place] rigid cystoscope was passed through the urethra into the bladder. The urethra and bladder were inspected using a 30 degree lens. The pendulous bulbous and membranous urethra was all appeared normal with no strictures. The prostatic urethra showed some trilobar enlargement but no active bleeding was seen. No papillary lesions were seen on the prostatic mucosa. The bladder neck was entered and the bladder mucosa was inspected both ureteral orifice ease appeared normal with no blood seen coming from either side. No papillary or nodular lesions were seen scattered throughout the biopsy. Specifically, no papillary or nodular lesions were seen in the location corresponding to the CT findings. The bladder was moderately trabeculated and there were a few small [place] di verticuli. Once we did not find a bladder tumor, we decided to go ahead with a left ureteroscopy in case it was still a left ureteral stone present. I was unable to cannulate the left ureteral orifice directly with an access catheter, so a guidewire was passed through the access catheter and maneuvered into the right ureteral orifice. The catheter could then be advanced over the wire into the d istal ureter. I was able to inject Omnipaque through the access catheter under fluoroscopic guidance. The ureter appeared slightly dilated but no filling defects were seen. I then passed the guidewire back through the access catheter and remove the catheter leaving the wire in place I passed a semirigid ureteroscope through the urethra into the bladder. The scope was then advanced into the left ureteral orifice and maneuvered up the distal ureter to the level of the pelvic brim. No stones were seen in the distal ureter The scope was then removed and the bladder was reinspected. No active bleeding was seen. The guidewire was removed as was the cystoscope The patient tolerated the procedure well there were no complications I suspect the past a distal ureteral stone previously.
[2019-10-16] MEDS: Phenazopyridine 200 MG TAB PO (12:27)
[2019-10-16 12:51] VITALS: BP 138/78; PULSE 78; RESP 16; TEMP 36.5; O2SAT 98
== END 2019-10-16 13:36 | disposition home or self-care (01) ==
LOC: SUR 16:58
PROVIDERS: PCP Internal Medicine; Visit Provider Urology
PROC: 0TBB8ZZ Excision of Bladder, Via Natural or Artificial Opening Endoscopic (ICD-10-PCS; CPT 52351; principal; 2019-10-16 11:15)
DX: R31.0 Gross hematuria (principal); N32.3 Diverticulum of bladder; N32.89 Other specified disorders of bladder; N40.0 Benign prostatic hyperplasia without lower urinary tract symptoms; I48.91 Unspecified atrial fibrillation; Z79.01 Long term (current) use of anticoagulants
CPT/HCPCS: 52351; NC; 74420; J0690; J1100; J1885; J2001; J2250; J2405; J3010; Q9967

== ENCOUNTER 2019-12-05 02:31 | Outpatient (CLI) | payer MEDICARE, OTHER, SELFPAY ==
--- NOTE | 2019-12-05 14:33 | DI.US_ITS ---
EXAM: US RENAL CLINICAL HISTORY: r/o hydronephrosis after ureteroscopy. TECHNIQUE: Mast scale, color and spectral Doppler were used. COMPARISON: US ABDOMEN ULTRASOUND from 07/27/2008 US SCROTUM US from 01/12/2013 US RIGHT EXTREMITY ULTRASOUND from 06/16/2013 MR MRI - LUMBAR SPINE WO CONTRAST from 12/28/2014 MR MR lumbar spine wo from 09/16/2018 US US RENAL from 09/07/[address] ABDOMEN PELVIS WO/W from 09/13/2019 FINDINGS: Renal size in cm: Right: 12.6 left: 11.4 Echogenicity: Normal. Hydronephrosis: No. Cyst or mass: There is a 2.8 x 2.1 x 2.2 cm simple right renal cyst. Nephrolithiasis: No. Other findings: There is a 1.2 cm exophytic hypoechoic lesion along the lateral aspect of the left ki dney. This corresponds to the finding on the CT scan from 09/13/2019. It does appear to be present o n the coronal images of the lumbar spine dated 09/16/2018 and possibly on the coronal MRI images from the study dated 12/28/2014. This lesion is indeterminate and close follow-up is recommended. Bladder:Normal. Ureteral jets: Right: Not visualized Left: Visualized and unremarkable. Prevoid vol:116 cc Postvoid vol:0 cc Prostate: 43 cc IMPRESSION: 1. No evidence of hydronephrosis. 2. Indeterminate 1.2 cm hypoechoic lesion in the left kidney. Please see the CT scan from 09/13/2019. Close follow-up is recommended. DATA REPOSITORY:
== END 2019-12-05 02:51 ==
PROVIDERS: PCP Internal Medicine; Visit Provider Urology
DX: R31.9 Hematuria, unspecified (principal); N13.30 Unspecified hydronephrosis; N28.1 Cyst of kidney, acquired; N28.89 Other specified disorders of kidney and ureter
CPT/HCPCS: 76770; 99213

== ENCOUNTER 2020-01-22 01:53 | Outpatient (CLI) | payer MEDICARE, OTHER, SELFPAY ==
[2020-01-22 09:11] LABS: HCT 42.8 % (40.0-50.0); Mean Corp. HGB Concentration 32.7 g/dL (32.0-36.0); Mean Corpuscular Hemoglobin 28.1 pg (27.0-33.0); Mean Corpuscular Volume 85.8 fL (80-95); Mean Platelet Volume 10.1 fL (8.0-11.0); Platelet Count 193 x1000/uL (130-400); RBC 4.99 m/cumm (4.50-6.00); White Blood Cell Count 4.79 k/cumm (4.4-10.8)
[2020-01-22 10:17] LABS: Albumin 3.7 g/dL (3.4-5.0); Calcium 9.3 mg/dL (8.5-10.1)
[2020-01-23 09:21] LABS: Parathyroid Hormone,Intact 27 pg/mL (19-88)
== END 2020-01-22 02:13 ==
PROVIDERS: PCP Internal Medicine; Visit Provider Internal Medicine
DX: E83.51 Hypocalcemia (principal); E87.1 Hypo-osmolality and hyponatremia
CPT/HCPCS: 36415; 85027; 82040; 82310; 83970

== ENCOUNTER 2020-06-11 00:27 | Outpatient (CLI) | payer MEDICARE, OTHER, SELFPAY ==
--- NOTE | 2020-06-11 07:00 | DI.US_ITS ---
EXAM: US RENAL CLINICAL HISTORY: monitor known left renal mass,N28.89. TECHNIQUE: Mast scale, color and spectral Doppler were used. COMPARISON: CT CT ABDOMEN PELVIS WO/W from 09/13/[address] ABDOMEN PELVIS WO/W from 09/13/2019 US US RENAL from 12/05/2019 FINDINGS: Renal size in cm: Right: 13.0. Left: 12.9. Echogenicity: Normal. Hydronephrosis: No. Cyst or mass: Stable cyst in the superior pole of the right kidney. There is a stable exophytic 1.1 x 0.7 cm mass in the lateral aspect of the left kidney. There is also a 1.3 x 0.7 cm round hypoechoi c avascular mass in the midpole of the left kidney. This was also visualized on the CT scan of the a bdomen and pelvis from 09/13/2019. It appears stable in size. Nephrolithiasis: No. Other findings: None. Bladder: Incompletely distended but grossly unremarkable. Ureteral jets: Right: Visualized and unremarkable. Left: Visualized and unremarkable. Prevoid vol:28 cc Postvoid vol:Not obtained. Prostate: 76 cc Renal color flow: Symmetric and within normal limits. IMPRESSION: 1. Stable left renal masses. 2. Stable right renal cyst. 3. Prostatic enlargement. DATA REPOSITORY:
== END 2020-06-11 00:47 ==
PROVIDERS: PCP Internal Medicine; Visit Provider Urology
DX: N28.89 Other specified disorders of kidney and ureter (principal); N28.1 Cyst of kidney, acquired; N40.0 Benign prostatic hyperplasia without lower urinary tract symptoms
CPT/HCPCS: 76770

== ENCOUNTER → 2020-06-18 13:55 | Outpatient (BNVA) | payer MEDICARE, OTHER, SELFPAY | PROVIDERS: PCP Internal Medicine; Referring Provider Internal Medicine; Visit Provider Nurse Practitioner Gerontology | DX: N28.89 Other specified disorders of kidney and ureter (principal) | CPT/HCPCS: 99213 ==

== ENCOUNTER 2020-10-22 01:48 | Outpatient (CLI) | payer MEDICARE, OTHER, SELFPAY ==
--- NOTE | 2020-10-22 | DI.MRI_ITS ---
EXAM: MR CERVICAL SPINE WO CLINICAL HISTORY: CERVICAL ARTHRITIS WITH MYELOPATHY,M47.12 TECHNIQUE: Multiplanar multisequence MRI of the cervical spine was performed without intravenous con trast. FINDINGS: BONES: Vertebral body heights are maintained. Intervertebral disc spaces are normal. Alignment is nor mal. Bone marrow signal intensity is within normal limits. Posterior spinal surgery extending from C4 through T2 with laminectomy changes at C7 and T1. CERVICAL CORD: Craniovertebral junction is unremarkable. There is again seen a small focus of hyperin tense signal in the anterior spinal cord at the C5 level. There is otherwise normal signal in the sp inal cord. SOFT TISSUES: Unremarkable. C2-3: No disc herniation or bulge is identified. No significant central spinal canal or neural forami nal stenosis. C3-4: No disc herniation or bulge is identified. No significant central spinal canal or neural forami nal stenosis C4-5: There is 2-3 mm anterolisthesis of C4 on C5. No disc herniation or bulge is identified. No sig nificant central spinal canal stenosis. There is bilateral neural foraminal narrowing present second matheus to uncovertebral joint hypertrophy.. C5-6: There is 1-2 mm of anterolisthesis of C5 on C6. No disc herniation or bulge is identified. The re is mild narrowing of the central spinal canal. Bilateral neural foraminal narrowing is present se condary to uncovertebral joint hypertrophy.. C6-7: No disc herniation or bulge is identified. No significant central spinal canal stenosis. Bilat eral neural foraminal narrowing is present. C7-T1: No disc herniation or bulge is identified. No significant central spinal canal stenosis. Bila teral neural foraminal stenosis. IMPRESSION: 1. Since the prior examination the patient has undergone posterior spinal surgery extending from appa rently C4 through T2. 2. Multilevel degenerative changes in the cervical spine resulting in neural foraminal stenosis. 3. Stable hyperintense focus in the anterior spinal cord posterior to the C5 vertebral body. This ma y represent myelomalacic change. DATA REPOSITORY:
== END 2020-10-22 02:08 ==
PROVIDERS: PCP Internal Medicine; Visit Provider Neurological Surgery
DX: M47.12 Other spondylosis with myelopathy, cervical region (principal); M48.02 Spinal stenosis, cervical region
CPT/HCPCS: 72141

== ENCOUNTER 2020-12-09 01:19 | Outpatient (CLI) | payer MEDICARE, OTHER, SELFPAY ==
--- NOTE | 2020-12-09 07:00 | DI.US_ITS ---
Exam(s) US RENAL EXAM: US RENAL CLINICAL HISTORY: monitoring renal mass,n28.89 TECHNIQUE: Ultrasound of both kidneys performed using standard protocol. COMPARISON: US US RENAL from 06/11/2020 FINDINGS: RIGHT KIDNEY: Measures cm in length. No cysts evident. Normal cortical thickness and corticomedullary differentiat ion .No solid masses No intrarenal calculi nor hydronephrosis. LEFT KIDNEY: Measures cm in length. No cysts evident. Normal cortical thickness and corticomedullary differentia ion. No solids masses. No intrarenal calculi nor hydonephrosis. URINARY BLADDER: Prevoid volume is cc Postvoid volume is cc No evidence of bladder mass nor diverticuli. Ureterovesical jets: Both identified and appear symmetrical IMPRESSION: 1. No significant ultrasound findings in the kidneys. 2. DATA REPOSITORY:
== END 2020-12-09 01:39 ==
PROVIDERS: PCP Internal Medicine; Visit Provider Nurse Practitioner Gerontology
DX: N28.89 Other specified disorders of kidney and ureter (principal)
CPT/HCPCS: 76770

== ENCOUNTER → 2020-12-11 10:03 | Outpatient (BNVA) | payer MEDICARE, OTHER, SELFPAY | PROVIDERS: PCP Internal Medicine; Referring Provider Internal Medicine; Visit Provider Nurse Practitioner Gerontology | DX: N28.89 Other specified disorders of kidney and ureter (principal) | CPT/HCPCS: 99214 ==

== ENCOUNTER 2021-02-10 12:36 | Outpatient (REF) | payer MEDICARE, OTHER, SELFPAY ==
[2021-02-10 21:16] LABS: HCT 47.2 % (40.0-50.0); HGB 15.9 g/dL (13.5-17.5); MCH 32.6 pg (27.0-33.0); MCHC 33.7 % (32.0-36.0); MCV 96.9 fL (80-95); Platelet Count 175 10^3/uL (130-400); RBC 4.87 10^6/uL (4.36-5.78); RDW 12.2 % (11.8-14.1); RDW-SD 43.7 fL; WBC 5.76 10^3/uL (4.4-10.8)
[2021-02-10 21:41] LABS: ALT 56 U/L (16-63); AST 41 U/L (15-37); Albumin 3.7 g/dL (3.4-5.0); Alkaline Phosphatase 58 U/L (46-116); Anion Gap 7.1 mmol/L (3-11); BUN 21 mg/dL (7-18); Bilirubin, Total 0.7 mg/dL (0.2-1.0); CO2 27.9 mmol/L (21.0-32.0); CREATININE 0.8 mg/dL (0.70-1.30); Calcium 9.1 mg/dL (8.5-10.1); Chloride 107 mmol/L (98-107); Glucose 122 mg/dL (74-106); Potassium 4.4 mmol/L (3.5-5.1); Sodium 142 mmol/L (136-145); Total Protein 6.9 g/dL (6.4-8.2)
== END 2021-02-10 12:37 | disposition home or self-care (01) ==
LOC: NCHCN 12:36
PROVIDERS: PCP Internal Medicine; Visit Provider Family Medicine
DX: Z87.448 Personal history of other diseases of urinary system (principal); N28.89 Other specified disorders of kidney and ureter
CPT/HCPCS: 80053; 85027

== ENCOUNTER 2021-03-05 21:25 | Outpatient (CLI) | payer MEDICARE, OTHER, SELFPAY ==
--- NOTE | 2021-03-05 | DI.CT_ITS ---
Exam(s) CT ABDOMEN PELVIS W EXAM: CT ABDOMEN PELVIS W CLINICAL HISTORY: ABD PAIN, R10.9, ? APPENDICITIS OR DIVERTICULITIS. TECHNIQUE: Imaging Protocol: Axial computed tomography images with coronal and sagittal reformatted images were created and reviewed CONTRAST MATERIAL: Intravenous: Omnipaque 100cc Oral: None COMPARISON: CT CT ABDOMEN PELVIS WO/W from 09/13/2019 FINDINGS: VISUALIZED LUNG BASES: No nodules nor pleural effusions evident. ABDOMEN: There is no ascites. LIVER: Liver is again noted be hypodense implying steatosis. There are no discrete focal hepatic les ions identified. GALLBLADDER/BILIARY: Multiple small gallstones are seen along the dependent wall of the gallbladder. No evidence of acute cholecystitis. No dilatation of the biliary tree, both intra and extrahepatic. No calculi seen in the lower CBD. CBD is not dilated. PANCREAS: No evidence of pancreatic mass nor dilatation of the pancreatic duct. SPLEEN: Spleen is not enlarged. No obvious intrasplenic lesions. Splenic and portal veins are paten t. ADRENALS: There are no significant adrenal masses. KIDNEYS:There is 2.7 x 2.4 centimeter an cyst in the upper pole of the right kidney. No other right renal findings. There is a small exophytic cyst off the lateral cortex of the left kidney measuring 7 millimeters. Both these findings are unchanged from the prior study listed above. In the posterio r cortex there is a small 8 millimeter hypodensity again noted. Possibly a cyst although somewhat de nser than typical cyst. Also slightly dense area in the lateral cortex measuring 11 millimeters. Th francisco javier areas previously documented. Unchanged.. ABDOMINAL AORTA: Abdominal aorta is not enlarged. LYMPH NODES:There is no retroperitineal nor paraaortic adenopathy. ABDOMINAL WALL: No evidence of significant anterior abdominal wall hernia. PELVIS: GI: No evidence of appendicitis.There is extensive sigmoid diverticulosis. Diverticular also seen in the left colon distal to the splenic flexure, also without obvious diverticulitis..There is somewhat of a mesenteric swirl sign. Part of the sigmoid is slightly dilated. Distal most sigmoid and recto sigmoid are relatively collapsed. Findings are unchanged from previous. LYMPH NODES: There is no intrapelvic nor inguinal adenopathy. REPRODUCTIVE: Prostate mildly enlarged. Seminal vesicles unremarkable. URINARY BLADDER: No calculi nor obvious masses evident OSSEOUS: Fusion hardware again noted in the lower lumbar spine. Anterolisthesis L4 upon L5 again not ed. No disc space narrowing at this level. Partial ankylosis of the SI joints. IMPRESSION: 1. Cholelithiasis. No evidence of acute cholecystitis nor dilatation of the biliary tree. 2. Bilateral renal cysts as described above. Largest is in the right kidney measuring 2.7 x 2.4 cm u nchanged. Few of the smaller left renal findings are difficult to differentiate is small hemorrhagic cyst versus solid lesions. If clinically indicated could be further study with MRI. 3. Extensive sigmoid diverticulosis. No obvious acute diverticulitis. 4. Mesenteric swirl sign in the region of the sigmoid. Mildly dilated sigmoid. Correlation with cli nical findings recommended. The rectum is collapsed. Fusion hardware again noted in the mid-lower lumbar spine. RADIATION DOSE DELIVERED: 1,390.76mGy.cm Total DLP DATA REPOSITORY: All CT scans at this facility are submitted to the National Radiology Data Registry (NRDR) Dose Index Registry (DIR) with the [employer] ([employer]). RADIATION OPTIMIZATION: All CT scans at this facility use at least one of these dose optimization te chniques: automated exposure control; mA and/or kV adjustment per patient size (includes targeted exa ms where dose is matched to clinical indication); or iterative reconstruction.
[2021-03-05 13:59] LABS: Abs Immature Grans 0.02 10^3/uL (0.0-0.06); Absolute Basophil Count 0.02 10^3/uL (0.0-0.2); Absolute Eosinophil Count 0.06 10^3/uL (0.0-0.7); Absolute Lymphocyte Count 1.98 10^3/uL (1.2-3.4); Absolute Monocyte Count 0.78 10^3/uL (0.1-0.8); Absolute Neutrophil Count 4.14 10^3/uL (1.2-6.7); Basophils % 0.3; Eosinophils % 0.9; HCT 46.4 % (40.0-50.0); HGB 15.7 g/dL (13.5-17.5); Immature Grans % 0.3; Lymphocytes % 28.3; MCH 31.8 pg (27.0-33.0); MCHC 33.8 % (32.0-36.0); MCV 94.1 fL (80-95); Monocytes % 11.1; Neutrophils % 59.1; Nucleated RBC 0 %; Platelet Count 146 10^3/uL (130-400); RBC 4.93 10^6/uL (4.36-5.78); RDW 12.1 % (11.8-14.1); RDW-SD 42.4 fL
[2021-03-05 14:19] LABS: ALT 56 U/L (16-63); AST 30 U/L (15-37); Albumin 3.9 g/dL (3.4-5.0); Alkaline Phosphatase 65 U/L (46-116); Anion Gap 9.2 mmol/L (3-11); BUN 16 mg/dL (7-18); Bilirubin, Total 1.1 mg/dL (0.2-1.0); CO2 26.8 mmol/L (21.0-32.0); CREATININE 0.8 mg/dL (0.70-1.30); Calcium 8.8 mg/dL (8.5-10.1); Chloride 103 mmol/L (98-107); Glucose 101 mg/dL (74-106); Potassium 3.9 mmol/L (3.5-5.1); Sodium 139 mmol/L (136-145); Total Protein 7.5 g/dL (6.4-8.2)
[2021-03-05] MEDS: Omnipaque 350 MG/ML 100 ML BTL IJ (15:58)
[2021-03-05] MEDS: Breeza Beverage 473 ML BTL PO ×2 (15:58→15:59)
[2021-03-05] MEDS: Omnipaque 350 MG/ML 50 ML BTL PO (16:00)
== END 2021-03-05 21:45 ==
PROVIDERS: PCP Internal Medicine; Visit Provider Physician Assistant Medical
DX: R10.9 Unspecified abdominal pain (principal); K80.20 Calculus of gallbladder without cholecystitis without obstruction; N28.1 Cyst of kidney, acquired; K57.30 Diverticulosis of large intestine without perforation or abscess without bleeding
CPT/HCPCS: 80053; 74177; 85025; J3490; Q9967

== ENCOUNTER 2021-06-12 01:39 | Outpatient (CLI) | payer MEDICARE, OTHER, SELFPAY ==
--- NOTE | 2021-06-12 08:00 | DI.US_ITS ---
Exam(s) US RENAL EXAM: US RENAL CLINICAL HISTORY: monitoring renal mass,n28.89 TECHNIQUE: Ultrasound of both kidneys performed using standard protocol. COMPARISON: US US RENAL from 12/09/2020 FINDINGS: RIGHT KIDNEY: Measures 12.3 cm in length. No cysts evident. Normal cortical thickness and corticomedullary differen tiation .No solid masses No intrarenal calculi nor hydronephrosis. LEFT KIDNEY: Measures 11.1 cm in length. No cysts evident. Normal cortical thickness and corticomedullary differe ntiaion. No solids masses. No intrarenal calculi nor hydonephrosis. URINARY BLADDER: Not studied. Apparently patient was not prepped for bladder ultrasound study IMPRESSION: 1. No significant ultrasound findings in the kidneys. 2. Bladder not studied DATA REPOSITORY:
== END 2021-06-12 01:59 ==
PROVIDERS: PCP Internal Medicine; Visit Provider Nurse Practitioner Gerontology
DX: N28.89 Other specified disorders of kidney and ureter (principal)
CPT/HCPCS: 76770

== ENCOUNTER → 2021-06-18 10:04 | Outpatient (BNVA) | payer MEDICARE, OTHER, SELFPAY | PROVIDERS: PCP Family Medicine; Referring Provider Family Medicine; Visit Provider Nurse Practitioner Gerontology | DX: N28.89 Other specified disorders of kidney and ureter (principal) | CPT/HCPCS: 81003; 99214 ==

== ENCOUNTER → 2021-08-11 10:29 | Outpatient (BNVA) | payer MEDICARE, OTHER, SELFPAY | PROVIDERS: PCP Family Medicine; Referring Provider Family Medicine; Visit Provider Surgery | DX: R10.31 Right lower quadrant pain (principal); K64.8 Other hemorrhoids | CPT/HCPCS: 99213 ==

== ENCOUNTER 2021-08-15 19:00 | Outpatient (REF) | payer MEDICARE, OTHER, SELFPAY ==
[2021-08-15 20:20] LABS: Abs Immature Grans 0.01 10^3/uL (0.0-0.06); Absolute Basophil Count 0.02 10^3/uL (0.0-0.2); Absolute Eosinophil Count 0.03 10^3/uL (0.0-0.7); Absolute Lymphocyte Count 1.18 10^3/uL (1.2-3.4); Absolute Monocyte Count 0.77 10^3/uL (0.1-0.8); Absolute Neutrophil Count 6.56 10^3/uL (1.2-6.7); Basophils % 0.2; Eosinophils % 0.4; HCT 45.6 % (40.0-50.0); HGB 15.3 g/dL (13.5-17.5); Immature Grans % 0.1; Lymphocytes % 13.8; MCH 32.1 pg (27.0-33.0); MCHC 33.6 % (32.0-36.0); MCV 95.6 fL (80-95); MPV 10.9 fL (8.0-11.0); Neutrophils % 76.5; Nucleated RBC 0 %; Platelet Count 141 10^3/uL (130-400); RBC 4.77 10^6/uL (4.36-5.78); RDW-SD 42.6 fL; WBC 8.57 10^3/uL (4.4-10.8)
[2021-08-15 20:58] LABS: ALT 34 U/L (16-63); AST 20 U/L (15-37); Albumin 3.6 g/dL (3.4-5.0); Alkaline Phosphatase 65 U/L (46-116); Anion Gap 8.8 mmol/L (3-11); BUN 18 mg/dL (7-18); Bilirubin, Total 1.3 mg/dL (0.2-1.0); CO2 28.2 mmol/L (21.0-32.0); CREATININE 0.9 mg/dL (0.70-1.30); Calcium 8.6 mg/dL (8.5-10.1); Chloride 103 mmol/L (98-107); Glucose 121 mg/dL (74-106); Potassium 3.7 mmol/L (3.5-5.1); Sodium 140 mmol/L (136-145)
== END 2021-08-15 19:01 | disposition home or self-care (01) ==
LOC: LBN 19:00
PROVIDERS: PCP Family Medicine; Visit Provider Physician Assistant Medical
DX: R31.9 Hematuria, unspecified (principal); R10.9 Unspecified abdominal pain
CPT/HCPCS: 80053; 85025; 87086

== ENCOUNTER 2021-08-15 22:32 | Outpatient (CLI) | payer MEDICARE, OTHER, SELFPAY ==
--- NOTE | 2021-08-15 | DI.CT_ITS ---
Exam(s) CT RENAL COLIC WO EXAM: CT RENAL COLIC WO CLINICAL HISTORY: LT FLANK PAIN R10.9 HEMATURIA R31.9 HX KIDNEY STONES Z87.442 PAIN W/. TECHNIQUE: Imaging Protocol: Axial computed tomography images with coronal and sagittal reformatted images were created and reviewed. COMPARISON: CT CT ABDOMEN PELVIS W from 03/05/2021 FINDINGS: ABDOMEN: Lung Bases: Calcified granuloma seen in the right lower lobe. Liver: There is diffuse fatty infiltration of the liver. No measurable mass. Gallbladder and biliary tract: Cholelithiasis. No biliary ductal dilatation. Pancreas: Normal density, no abnormal calcifications or inflammatory process. Spleen: Normal. Kidneys: Normal size, contour and axis.No nephrolithiasis or hydronephrosis. Bilateral renal cysts w hich appears stable. Adrenal glands: No mass is seen. Lymph nodes: Within normal limits. Abdominal Aorta: Abdominal portion non-dilated. Atherosclerosis. PELVIS: Bladder:There is diffuse thickening of the wall of the urinary bladder. This may be due to underdist ention. Cystitis or neoplasm cannot be excluded. Bowel: No obstruction or bowel wall thickening. Appendix is unremarkable. Diverticulosis of the colo n but no evidence of acute diverticulitis. Peritoneal cavity: No ascites, collection or mesenteric inflammatory response. No free air. Reproductive organs: Enlarged prostate gland. Bones: Within normal limits. Postsurgical changes in the lumbosacral spine. Grade 1 anterolisthesis of L4 on L5. Soft Tissues: Within normal limits. IMPRESSION: 1. No evidence of nephrolithiasis or hydronephrosis. 2. Colonic diverticulosis, but no evidence of acute diverticulitis. 3. Cholelithiasis. No biliary ductal dilatation. Next number hepatic steatosis. 4. Thickening of the wall of the urinary bladder. This may be due to underdistention but cystitis, n eoplasm or chronic bladder outlet obstruction cannot be excluded. Please correlate clinically. 5. Enlarged prostate gland. RADIATION DOSE DELIVERED: 1,206.43mGy.cm Total DLP DATA REPOSITORY: All CT scans at this facility are submitted to the National Radiology Data Registry (NRDR) Dose Index Registry (DIR) with the [employer] (ACR). RADIATION OPTIMIZATION: All CT scans at this facility use at least one of these dose optimization te chniques: automated exposure control; mA and/or kV adjustment per patient size (includes targeted exa ms where dose is matched to clinical indication); or iterative reconstruction.
== END 2021-08-15 22:52 ==
PROVIDERS: PCP Family Medicine; Visit Provider Physician Assistant Medical
DX: R10.32 Left lower quadrant pain (principal); R31.9 Hematuria, unspecified; Z87.442 Personal history of urinary calculi; K76.0 Fatty (change of) liver, not elsewhere classified; K80.20 Calculus of gallbladder without cholecystitis without obstruction; N32.89 Other specified disorders of bladder; N40.1 Benign prostatic hyperplasia with lower urinary tract symptoms
CPT/HCPCS: 74176

== ENCOUNTER 2021-08-25 02:07 | Outpatient (CLI) | payer MEDICARE, OTHER, SELFPAY ==
[2021-08-25 14:41] LABS: Source Nasal/Nares
[2021-08-25 19:18] LABS: COVID-19 PCR Negative (Negative)
== END 2021-08-25 02:08 | disposition home or self-care (01) ==
LOC: LBO 02:08
PROVIDERS: PCP Family Medicine; Visit Provider Surgery
DX: Z20.822 Contact with and (suspected) exposure to COVID-19 (principal); Z01.818 Encounter for other preprocedural examination
CPT/HCPCS: 87635; U0005

== ENCOUNTER 2021-08-26 08:28 | Day surgery (SDC) | payer MEDICARE, OTHER, SELFPAY ==
--- NOTE | 2021-08-25 21:24 | W.COLOREPORT ---
Colonoscopy Report Date of procedure: 08/26/21 Pre-op diagnosis general: villous adenoma of cecum Surgeon: Marisol Florence Anesthesia Type: General:No Airway Prep: Miralax/Dulcolax Retraction Time: 22 Procedure Description: After informed consent was obtained the patient was taken to the procedure room and placed in a left decubitous position. Monitors were applied and a time out was done. The patients name, date of , procedure, allergies to medications and metal in their body was reviewed. The patient was then sedated. Once sedated and comfortable a rectal exam was done. External exam was normal. Internal exam revealed a normal sphincter tone and no palpable masses. The scope was then introduced and retrofelexed. x3 column Grade II internal hemorrhoids were identified. The scope was then advanced to the cecum w/out difficulty. The TI and appendiceal orifice were identified. The prep was BBPS II (6). The scope was then slowly retracted over 22 minutes back into the rectum. There was a 0.75 cm flat polyp in the cecum that is removed with combination of cold snare and cold forceps. There is a pedunculated polyp at 80 cm that is 1.5 cm in size this is removed with a cold snare. There is another 5mm flat polyp at 70 cm that is removed with a cold biting forcep. There is another small x1 cm peduculated polyp at 60 cm that is removed with hot snare. the patient was woken up and taken back to Same day surgery in stable condition. We applied for rubber bands x4 to all 3 columns of hemorrhoids. The patient tolerated the procedure well and there were no immediate complications. Follow up: The patient should follow up in 1 years unless they develop changes in bowel habits or other new gastrointestinal complaints.
--- NOTE | 2021-08-25 21:28 | PDOC.DSDIS_ITS ---
Discharge Plan Disposition Patient Disposition: HOME Condition: Good Discharge Details Reason For Visit: colon scope Attending Provider: Marisol Florence Primary Care Provider: Isaac Childers Home Meds and New Rx's Prescriptions: Continued ipratropium bromide 0.03 % spray,non-aerosol 2 spray CICI BID PRN0RF sildenafil 100 mg tablet 100 mg PO DAILY PRN0RF atorvastatin 10 mg tablet 10 mg PO HS 0RF metoprolol succinate 25 mg cap,sprinkle,ER 24hr dose pack 25 mg PO HS 0RF acetaminophen 650 mg tablet extended release 650 mg PO PRN 0RF cholecalciferol (vitamin D3) 1,000 UNITS tablet 1,000 unit PO DAILY 0RF Ocuvite with Lutein 1 EACH tablet 1 tab PO DAILY 0RF sennosides-docusate sodium [Senna Laxative-Stool Softener] 8.6-50 mg tablet 1 tab PO BID PRN0RF sulfamethoxazole-trimethoprim 800-160 mg tablet 1 tab PO BID 0RF Label Comments: TAKE ONE TABLET BY MOUTH TWICE A DAY FOR 7 DAYS Discontinued Eliquis 5 mg tablet 5 mg PO BID 0RF polyethylene glycol 3350 17 gram/dose powder 238 g PO ONCE Qty: 238 0RF Rx Instructions: take per colonoscopy instructions bisacodyl [Dulcolax (bisacodyl)] 5 mg tablet,delayed release (DR/EC) 5 mg PO ONCE Qty: 4 0RF Rx Instructions: take per colonoscopy instructions Discharge Instructions Additional Instructions: DSU Colonoscopy Post- Op Instructions Instructions for Everyone who is given Anesthesia: For your safety, please do the following for the next twenty-four (24) hours: *Do Not operate a motor vehicle (car, truck, motorcycle, etc.) *Do Not drink alcoholic beverages or use any recreational drugs for the first 24 hours or while taking pain medications. The medications in your body may have a reaction that can be dangerous. *Do Not make any important decisions or sign any important papers. Findings:multiple polyps removed. No ASA/NSAID's for 2 wks hold elliquis until Wednesday Follow up: Dr. Florence on Wednesday. 1. No lifting over 20 pounds or strenuous activity for the first 24 hours after your procedure. After 24 hours there are no restrictions on your activity but you may feel fatigued for a few days. 2. After you arrive home you may have a light meal and return to your normal diet as you can tolerate it without feeling sick to your stomach. 3. You may have a bloated, gaseous feeling in your belly (abdomen) after a colonoscopy. Passing gas and belching will help. Walking or lying down on your left side with your knees flexed may relieve the discomfort. Call the office at [phone] (Office) or [phone] (Hospital) right away if you notice any of the following: a.Vomiting of blood or ?coffee ground stools?. b.Rectal bleeding 1Tbsp, blood clots or continuous bleeding. c.Severe belly (abdominal) pain. d.A hard distended belly (abdomen) and an inability to pass gas. 4. Please don?t expect to have a normal BM (bowel movement) for 2-3 days after your procedure. 5. If there are questions regarding the findings of your procedure, please contact your doctor 6. If you are unable to contact your doctor with a problem, contact the hospital at [phone]. 7. Continue all your regular medications unless directed otherwise. Pain Relief From Hemorrhoids Hemorrhoid banding . itself is not painful, but it is normal for patients to experience a sense of fullness or pressure after the procedure. Tylenol usually alleviates any symptoms. If you have pain- soak in a tube of warm water. Post-Procedure Do's & Don'ts Do?s: ? Take fiber supplements to avoid constipation ? Squeeze your buttocks muscles 10-15 times every two hours ? Take 10-15 deep breaths every 1-2 hours ? Drink plenty of water ? Engage in moderate exercise ? Take a sitz bath ? soaking in a tub of warm water ? after every bowel movement Don?ts: ? Stay seated for more than 2-3 hours ? Rub or scrub the anus too vigorously ? Try to force a bowel movement ? if you cannot go, stop and try again later ? Insert anything into the anus for two weeks ? unless you have been prescribed anorectal medication ? Avoid alcohol, as it can dehydrate you and lead to constipation Occasionally, you may experience bleeding after the hemorrhoid banding procedure. Do not be concerned if there is a minimal amount of blood. However, if bleeding continues, lie flat with your bottom higher than your head and apply an ice pack to the area. If the bleeding does not stop within a half-hour, call our office or go to the emergency room. Bleeding complications are uncommon and occur <1% of the time. -You do have rectal packing in place. This will either dissolve or pass the first time you go to the bathroom. ? I understand the above instructions and have no questions. Signature of Patient or Adult Escort Name of Responsible Adult Escort Signature of Nurse Date/Time Activity:: see above Diet:: see above
[2021-08-26 08:32] VITALS: BP 138/98; PULSE 92; RESP 18; TEMP 36.2; O2SAT 98
--- NOTE | 2021-08-26 08:53 | ANES.PREOP_ITS ---
General Info Date of Service Date Performed: 08/26/21 Height: 5 ft 8.5 in Weight: 103.5 kg Body Mass Index (BMI): 34.2 Surgical Procedure: Operation Date: 08/26/21 09:50 Proposed Procedure Side Surgeon p Colonoscopy w Hemorrhoid Banding Marisol Florence, Meds Allergies and Home Medications Allergies Allergy/AdvReac Type Severity Reaction Status Date / Time hydrocodone Allergy Psychosis Verified 08/26/21 08:33 methocarbamol Allergy I stop Unverified 08/26/21 08:33 breathing tramadol Allergy Verified 08/26/21 08:33 cephalexin AdvReac Intermediate Other (See Unverified 08/26/21 08:33 Comment) NSAIDS (Non-Steroidal AdvReac Unknown Verified 08/26/21 08:33 Anti-Inflamma Home Medication Medication Instructions Recorded cholecalciferol (vitamin D3) 25 1,000 unit PO DAILY 09/25/12 mcg (1,000 unit) tablet vit A 1,000 unit-C 200 mg-E 60 1 tab PO DAILY 09/25/12 unit-lutein 2 mg and minerals tablet (Ocuvite with Lutein) atorvastatin 10 mg tablet 10 mg PO HS 09/26/18 ipratropium bromide 21 mcg (0.03 2 spray CICI BID PRN 09/26/18 %) nasal spray metoprolol succinate 25 mg capsule 25 mg PO HS 09/26/18 sprinkle, ext. release 24 hr sildenafil 100 mg tablet 100 mg PO DAILY PRN 09/26/18 apixaban 5 mg tablet (Eliquis) 5 mg PO BID 12/05/18 sennosides 8.6 mg-docusate sodium 1 tab PO BID PRN 10/13/19 50 mg tablet (Senna Laxative-Stool Softener) acetaminophen 650 mg 650 mg PO PRN tab 08/11/21 tablet,extended release bisacodyl 5 mg tablet,delayed 5 mg PO ONCE #4 tab 08/11/21 release (Dulcolax (bisacodyl)) polyethylene glycol 3350 17 238 g PO ONCE #238 g 08/11/21 gram/dose oral powder sulfamethoxazole 800 1 tab PO BID 08/25/21 mg-trimethoprim 160 mg tablet Current Visit Medications: Current Medications Generic Name Dose Route Start Last Admin Trade Name Freq PRN Reason Stop Dose Admin Ringer's Solution 1,000 mls @ 80 mls/hr 08/26/21 06:00 IV 09/24/21 23:59 INFUSION MARIANN IV Miscellaneous Supplies 1 each 08/26/21 06:00 Iv Access IV 09/24/21 23:59 DIRECTED MARIANN Sodium Chloride 0 ml 08/26/21 06:00 Normal Saline Flush 10 Ml Syr IV 09/24/21 23:59 PRN PRN Sodium Chloride 0 ml 08/26/21 06:00 Normal Saline 10 Ml Vial IJ 09/24/21 23:59 DIRECTED PRN Sterile Water 0 ml 08/26/21 06:00 Water,Injection,Sterile 10 Ml Vial IJ 09/24/21 23:59 DIRECTED PRN PFSH Active Problems Active Problems: Problem Status Onset Code Fecal soiling R15.1 Hemorrhoids, external K64.4 History of hematuria Z87.448 Seborrheic keratoses L82.1 Atrial fibrillation I48.91 Lumbar spinal stenosis M48.061 Venous insufficiency I87.2 Fatty infiltration of liver K76.0 Encounter for screening colonoscopy Z12.11 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 -BR 08/25/21: Pt. states this was cataract surgery not cornea-JW Polyp of colon [place] 11-11-18, villous/tubulovillous/sessile serrated. Dr Marisol Florence, [facility], repeat 3 years. Surgical History Surgical History History of back surgery (x2) History of cataract surgery Bilateral History of colonoscopy History of knee replacement Left knee History of tonsillectomy History of vasectomy Tobacco Smoking/Tobacco Use Status: Former Tobacco Use Alcohol Alcohol Intake: current Alcohol intake frequency: 3 or more drinks per day Alcohol type: hard liquor Substance Use Substance use: Never Substance use type: does not use Vital Signs and Lab Results Vital Signs Most Recent Vital Signs in EMR: Most Recent Vital Signs Temp Pulse Resp BP Pulse Ox 36.2 C L 92 H 18 138/98 H 98 08/26/21 08:32 08/26/21 08:32 08/26/21 08:32 08/26/21 08:32 08/26/21 08:32 Lab Results Blood Type / Crossmatch: No Data to Display Complete Blood Count: White Blood Count 8.57 10^3/uL (4.4-10.8) 08/15/21 13:52 08/15/21 Red Blood Count 4.77 10^6/uL (4.36-5.78) 08/15/21 13:52 08/15/21 Hemoglobin 15.3 g/dL (13.5-17.5) 08/15/21 13:52 08/15/21 Hematocrit 45.6 % (40.0-50.0) 08/15/21 13:52 08/15/21 Platelet Count 141 10^3/uL (130-400) 08/15/21 13:52 08/15/21 Complete Metabolic Panel: Sodium Level 140 mmol/L (136-145) 08/15/21 13:52 08/15/21 Potassium Level 3.7 mmol/L (3.5-5.1) 08/15/21 13:52 08/15/21 Chloride Level 103 mmol/L (98-107) 08/15/21 13:52 08/15/21 Carbon Dioxide Level 28.2 mmol/L (21.0-32.0) 08/15/21 13:52 08/15/21 Blood Urea Nitrogen 18 mg/dL (7-18) 08/15/21 13:52 08/15/21 Creatinine 0.9 mg/dL (0.70-1.30) 08/15/21 13:52 08/15/21 Estimated GFR/1.73 m2 >= 60.00 (mL/min/1.73m2) 08/15/21 13:52 08/15/21 Calcium Level 8.6 mg/dL (8.5-10.1) 08/15/21 13:52 08/15/21 Albumin 3.6 g/dL (3.4-5.0) 08/15/21 13:52 08/15/21 Glucose Level 121 mg/dL (74-106) H 08/15/21 13:52 08/15/21 Liver Function Panel: Alanine Aminotransferase (ALT/SGPT) 34 U/L (16-63) 08/15/21 13:52 08/15/21 Aspartate Amino Transf (AST/SGOT) 20 U/L (15-37) 08/15/21 13:52 08/15/21 Coagulation Panel: No Data to Display Cardiac Panel: No Data to Display Arterial Blood Gas: No Data to Display Venous Blood Gas: No Data to Display Pancreas Panel: No Data to Display Thyroid Panel: No Data to Display Infectious Disease: Coronavirus (COVID-19)(PCR) Negative (Negative) 08/25/21 10:09 08/25/21 Coronavirus 2019 Source Nasal/Nares 08/25/21 10:09 08/25/21 Blood Cultures: No Data to Display Toxicology Panel: No Data to Display Imaging and Studies Imaging and Studies Study information below may be from another EMR and interpreted by another provider. Please see original notes in EMR for more complete details. Echocardiogram Summary: STUDY CONCLUSIONS* Impressions: The patient was in atrial fibrillation throughout study. This rhythm can interfere with accurate global and segmental wall motion analysis. Summary: 1. Left ventricle: The cavity size was normal. Wall thickness was normal. Systolic function was mildly reduced. The estimated ejection fraction was 45-50%. Wall motion was normal; there were no regional wall motion abnormalities. 2. Aortic valve: There was trivial regurgitation. 3. Mitral valve: There was mild regurgitation. 4. Left atrium: The atrium was mildly dilated. 5. Right ventricle: The cavity size was normal. Wall thickness was normal. Systolic function was normal. 12/2015 Anesthesia Assessment and Plan Anesthesia History Personal History: No History of Anesthesia Complications Family History: No Family History of Anesthesia Complications Exercise Tolerance Exercise Tolerance: Metabolic Equivalents<4 Pertinent Negatives Pertinent Negatives: No Symptoms of GERD, No Major Cardiovascular Symptoms or Complaints, No Major Pulmonary Symptoms or Complaints and No History of CVA/TIA Cardiac & Pulmonary Exam Cardiac Exam: Other (A fib) Pulmonary Exam: Clear Bilateral Breath Sounds Implantable Cardiac Device Does patient have a Pacemaker or an ICD?: No Airway Exam Known Difficult Airway: No Mallampati Class: 1 Mouth Opening: Normal (> 3cm) Thyromental Distance: Greater than 3 cm Neck Range of Motion: Limited ROM and History of Cervical Fusion Neck Circumference: Normal Teeth Condition: Generalized Poor Dentition and Loose or Chipped ASA Classification ASA Score: ASA 3 Emergency Case?: No NPO Status NPO Status: NPO Clears >2 hours, Solids >8 hours Anesthesia Plan Resuscitation Status: Full Code Anesthesia Technique: General Anesthesia Airway Planned: Natural Airway Monitors Used: Standard Monitors
[2021-08-26 08:55] VITALS: BMI 34.2
[2021-08-26] MEDS: Lactated Ringers 1,000 ML 80 ML IV (09:03)
--- NOTE | 2021-08-26 09:48 | BOWEL_PTH ---
PATIENT: Nakul Sam LOC: [facility] U#:[id number] AGE/SX: 76/M ROOM: RE08/26/[address]: Marisol Florence : 1945 BED: DIS: 08/26/2021 SPEC #: [id number] RECD: 08/26/21 12:50 STATUS: CLARISSA RE #: [id number] VENICE: 08/26/21 09:[address]: Marisol Florence DEPT: Surgical Specimen RECD BY: Ashanti Dsouza ENTERED: 08/26/21 12:52 SP TYPE: Bowel OTHR DR: Isaac Childers Tissues: 1 - BIOPSY BOWEL 2 - BIOPSY BOWEL 3 - BIOPSY BOWEL 4 - BIOPSY BOWEL Procedures: GROSS AND MICRO LEVEL 4 Comments: [id number]
[2021-08-26] MEDS: Gelatin SPONGE 12-7 MM PKT 1 EACH TP (10:25)
[2021-08-26 10:30] VITALS: BP 105/78; PULSE 75; RESP 14; TEMP 36.1; O2SAT 96
[2021-08-26 11:00] VITALS: BP 117/87; PULSE 86; RESP 16; TEMP 36; O2SAT 98
--- NOTE | 2021-08-26 11:56 | W.ANESPOSTOP ---
Postoperative Evaluation Date, Time and Location Date Performed: 08/26/21 Time Performed: 11:00 Patient Location: Day Surgery Unit Vital Signs Most Recent Imported Vital Signs: Most Recent Vital Signs Temp Pulse Resp BP Pulse Ox 36 C L 86 16 117/87 98 08/26/21 11:00 08/26/21 11:00 08/26/21 11:00 08/26/21 11:00 08/26/21 11:00 Pain Score Most Recent Pain Score: Most Recent Pain Score Pain Level 2 08/26/21 11:00 Assessment Mental Status: Awake (Alert & Oriented to Patient Baseline) Airway and Respiratory Function: Patent airway with normal (patient baseline) respiratory exam Cardiovascular Function: Hemodynamically Stable Hydration Status: Adequately Hydrated Nausea & Vomiting: No Nausea or Vomiting Pain: Pain is tolerable per patient Peripheral Nerve Block: Patient did not receive a nerve block
== END 2021-08-26 11:37 | disposition home or self-care (01) ==
LOC: SUR 08:28
PROVIDERS: PCP Family Medicine; Visit Provider Surgery
PROC: 0DJD8ZZ Inspection of Lower Intestinal Tract, Via Natural or Artificial Opening Endoscopic (ICD-10-PCS; CPT 45378; principal; 2021-08-26 09:45)
DX: D12.6 Benign neoplasm of colon, unspecified (principal); K64.1 Second degree hemorrhoids; I48.91 Unspecified atrial fibrillation; K76.0 Fatty (change of) liver, not elsewhere classified
CPT/HCPCS: 45380; 45385; 46221; 88305; J2001

== ENCOUNTER → 2021-09-01 11:15 | Outpatient (BNVA) | payer MEDICARE, OTHER, SELFPAY | PROVIDERS: PCP Family Medicine; Referring Provider Family Medicine; Visit Provider Surgery | DX: Z48.815 Encounter for surgical aftercare following surgery on the digestive system (principal); Z79.01 Long term (current) use of anticoagulants; K63.5 Polyp of colon | CPT/HCPCS: 99212 ==

== ENCOUNTER 2021-09-03 01:08 | Outpatient (CLI) | payer MEDICARE, OTHER, SELFPAY ==
--- NOTE | 2021-09-03 10:45 | DI.US_ITS ---
Exam(s) US ABDOMEN EXAM: US ABDOMEN CLINICAL HISTORY: ACUTE ABD PAIN, R10.9; NAUSEA AND VOMITING, R11.2, RUQ PAIN TECHNIQUE: Ultrasound performed using standard protocol. COMPARISON: US US RENAL from 06/12/[address] RENAL COLIC WO from 08/15/2021 FINDINGS: Abdominal ultrasound was performed according to the usual protocol. There is increased echogenicity of the hepatic parenchyma consistent with hepatic steatosis. No foca l hepatic lesion identified. Note is made of cholelithiasis. There are multiple small mobile stones. Gallbladder wall is about 2 millimeters in thickness. No pericholecystic fluid collection. Common hepatic duct is of normal diameter. Portal venous flow is normal directional period Kidneys are unremarkable in appearance except for an incidental 3 cm simple cyst of the upper pole of the right kidney. No hydronephrosis or nephrolithiasis. Spleen is unremarkable in appearance. Pancreas is not well visualized due to overlying bowel gas but is intact as seen. Abdominal aorta and IVC are of normal diameter. IMPRESSION: Cholelithiasis. Hepatic steatosis. No other significant findings DATA REPOSITORY:
== END 2021-09-03 01:28 ==
PROVIDERS: PCP Family Medicine; Visit Provider Physician Assistant Medical
DX: R10.9 Unspecified abdominal pain (principal); R11.2 Nausea with vomiting, unspecified; K76.0 Fatty (change of) liver, not elsewhere classified; K80.20 Calculus of gallbladder without cholecystitis without obstruction
CPT/HCPCS: 76700

== ENCOUNTER → 2021-12-15 01:43 | Outpatient (CLI) | payer MEDICARE, OTHER, SELFPAY ==
--- NOTE | 2021-12-15 07:30 | DI.US_ITS ---
Exam(s) US RENAL EXAM: US RENAL CLINICAL HISTORY: monitoring renal mass, N28.89. TECHNIQUE: Mast scale, color and spectral Doppler were used. COMPARISON: US US RENAL from 06/12/[address] RENAL COLIC WO from 08/15/2021 US US ABDOMEN from 09/03/2021 FINDINGS: Renal size in cm: Right: 13.5. Left: 12.2. Echogenicity: Normal. Hydronephrosis: No. Cyst or mass: Bilateral renal cysts are present. There is a 2.2 x 1.4 x 2.2 cm simple cyst in the cabral perior pole of the right kidney. There is a 1.1 x 1 x 1.2 cm cyst in the superior pole of the left k idney. No solid renal masses are seen sonographically. Nephrolithiasis: No. Other findings: None. Bladder:Normal. Ureteral jets: Right: Visualized and unremarkable. Left: Visualized and unremarkable. Prevoid vol:103 cc Postvoid vol:0 cc Prostate: Not visualized on this examination. Renal color flow: Symmetric and within normal limits. IMPRESSION: Stable bilateral renal cysts. DATA REPOSITORY:
== END ==
PROVIDERS: PCP Family Medicine; Visit Provider Nurse Practitioner Gerontology
DX: N28.89 Other specified disorders of kidney and ureter (principal); N28.1 Cyst of kidney, acquired
CPT/HCPCS: 76770

== ENCOUNTER → 2021-12-17 10:03 | Outpatient (BNVA) | payer MEDICARE, OTHER, SELFPAY | PROVIDERS: PCP Family Medicine; Referring Provider Family Medicine; Visit Provider Nurse Practitioner Gerontology | DX: N28.89 Other specified disorders of kidney and ureter (principal); R31.9 Hematuria, unspecified | CPT/HCPCS: 81003; 99214 ==

== ENCOUNTER → 2022-02-13 23:12 | Outpatient (CLI) | payer MEDICARE, OTHER, SELFPAY ==
--- NOTE | 2022-02-13 13:30 | DI.RAD_ITS ---
Exam(s) XR CHEST 2V PA LATERAL EXAM: XR CHEST 2V PA LATERAL CLINICAL HISTORY: COUGH R05.8 TECHNIQUE: 2D digital imaging was performed. COMPARISON: CR XR CHEST 2V PA LATERAL from 01/03/2019 FINDINGS: MEDIASTINUM: Normal. HEART: Upper limits of normal. PULMONARY VASCULATURE: Normal. LUNGS: Clear. PLEURAL SPACE: No pleural effusion or pneumothorax. BONE:Hardware cervical thoracic junction. Flowing osteophytes in the spine. No compression fractur es. IMPRESSION: No acute abnormality. DATA REPOSITORY: RADIATION DOSE DELIVERED:
== END ==
PROVIDERS: PCP Family Medicine; Visit Provider Family Medicine
DX: R05.8 Other specified cough (principal)
CPT/HCPCS: 71046

== ENCOUNTER → 2022-06-10 01:21 | Outpatient (CLI) | payer MEDICARE, OTHER, SELFPAY ==
--- NOTE | 2022-06-10 06:30 | DI.US_ITS ---
Exam(s) US RENAL EXAM: US RENAL CLINICAL HISTORY: monitoring renal cysts/mass,hematuria,n28.89,r31.9. TECHNIQUE: Mast scale, color and spectral Doppler were used. COMPARISON: CT CT RENAL COLIC WO from 08/15/2021 US US RENAL from 12/15/2021 FINDINGS: Renal size in cm: Right: 12.9. Left: 11.7. Echogenicity: Normal. Hydronephrosis: No. Cyst or mass: There is stable simple bilateral renal cysts. These are unchanged compared to the CT s can of the abdomen from 08/15/2021. Nephrolithiasis: No. Other findings: None. Bladder:The urinary bladder cannot be well evaluated due to incomplete distension. Ureteral jets: Right: Not visualized on this examination. Left: Not visualized on this examination. Prevoid vol:16 cc Postvoid vol:Patient was unable to void. Prostate: 5 cc Renal color flow: Symmetric and within normal limits. IMPRESSION: 1. Stable renal cysts. 2. No evidence of nephrolithiasis or hydronephrosis. No evidence of a solid renal mass sonographical ly. DATA REPOSITORY:
== END ==
PROVIDERS: PCP Family Medicine; Visit Provider Nurse Practitioner Gerontology
DX: N28.89 Other specified disorders of kidney and ureter (principal); R31.9 Hematuria, unspecified
CPT/HCPCS: 76770

== ENCOUNTER → 2022-06-17 09:54 | Outpatient (BNVA) | payer MEDICARE, OTHER, SELFPAY | PROVIDERS: PCP Family Medicine; Referring Provider Family Medicine; Visit Provider Nurse Practitioner Gerontology | DX: N28.89 Other specified disorders of kidney and ureter (principal); R31.9 Hematuria, unspecified | CPT/HCPCS: 99214 ==

== ENCOUNTER 2022-08-12 15:09 | Outpatient (REF) | payer MEDICARE, OTHER, SELFPAY ==
[2022-08-12 14:18] LABS: HCT 46.8 % (40.0-50.0); HGB 15.9 g/dL (13.5-17.5); MCH 31.9 pg (27.0-33.0); MCV 94 fL (80-95); MPV 10.4 fL (8.0-11.0); Platelet Count 184 10^3/uL (130-400); RBC 4.99 10^6/uL (4.36-5.78); RDW 11.9 % (11.8-14.1); RDW-SD 41.4 fL; WBC 6.94 10^3/uL (4.4-10.8)
[2022-08-12 15:46] LABS: ALT 45 U/L (16-63); AST 33 U/L (15-37); Albumin 3.7 g/dL (3.4-5.0); Alkaline Phosphatase 62 U/L (46-116); Anion Gap 9.9 mmol/L (3-11); BUN 17 mg/dL (7-18); Bilirubin, Total 0.7 mg/dL (0.2-1.0); CO2 26.1 mmol/L (21.0-32.0); CREATININE 0.7 mg/dL (0.70-1.30); Calcium 9.3 mg/dL (8.5-10.1); Chloride 105 mmol/L (98-107); Estimated GFR 93.73 (mL/min/1.73m2); Glucose 97 mg/dL (74-106); Potassium 4.1 mmol/L (3.5-5.1); Sodium 141 mmol/L (136-145)
== END 2022-08-12 15:10 | disposition home or self-care (01) ==
LOC: NCHCN 15:09
PROVIDERS: PCP Family Medicine; Visit Provider Family Medicine
DX: I48.0 Paroxysmal atrial fibrillation (principal); E78.5 Hyperlipidemia, unspecified
CPT/HCPCS: 80053; 85027

== ENCOUNTER 2022-12-17 01:21 | Outpatient (CLI) | payer MEDICARE, OTHER, SELFPAY ==
--- NOTE | 2022-12-17 07:45 | DI.US_ITS ---
Exam(s) US RENAL EXAM: US RENAL CLINICAL HISTORY: monitoring cyst/mass, HEMATURIA, N28.89, R31.9. TECHNIQUE: Mast scale, color and spectral Doppler were used. COMPARISON: CT CT RENAL COLIC WO from 08/15/2021 US US ABDOMEN from 09/03/2021 US US RENAL from 06/10/2022 FINDINGS: Renal size in cm: Right: 13.1, left: 12.4 Echogenicity: Normal Hydronephrosis: No Cyst or mass: 3.4 centimeters cyst upper pole right kidney. 1 centimeters cyst posterior upper pole left kidney. Nephrolithiasis: No Bladder:Normal . Right ureteral jet not seen. Prevoid vol:103 Postvoid vol:0 Prostate volume 71 cc IMPRESSION: Bilateral simple cysts. No suspicious mass. Enlarged prostate. DATA REPOSITORY:
== END 2022-12-17 01:41 ==
LOC: DI 01:22
PROVIDERS: PCP Family Medicine; Visit Provider Nurse Practitioner Gerontology
DX: N28.89 Other specified disorders of kidney and ureter (principal); R31.9 Hematuria, unspecified; N40.1 Benign prostatic hyperplasia with lower urinary tract symptoms
CPT/HCPCS: 76770

== ENCOUNTER → 2022-12-22 09:53 | Outpatient (BNVA) | payer MEDICARE, OTHER, SELFPAY | PROVIDERS: PCP Family Medicine; Visit Provider Nurse Practitioner Gerontology | DX: N40.1 Benign prostatic hyperplasia with lower urinary tract symptoms (principal); R39.89 Other symptoms and signs involving the genitourinary system; N28.89 Other specified disorders of kidney and ureter; R31.9 Hematuria, unspecified | CPT/HCPCS: 81003; 99213 ==

== ENCOUNTER 2023-01-08 15:06 | Outpatient (REF) | payer MEDICARE, OTHER, SELFPAY ==
[2023-01-08 10:39] LABS: Bilirubin Negative (Negative); Blood Moderate (Negative); Clarity Clear (Clear); Glucose Negative (Negative); Ketones Trace mg/dL (Negative); Leukocyte Esterase Negative (Negative); Nitrite Negative (Negative); Specific Gravity >= 1.030 (1.005-1.025); Urobilinogen 0.2 mg/dL (Up to 0.2); pH 5.5 (5-8)
[2023-01-08 10:49] LABS: Bacteria Negative HPF (Negative); C & S Indicated? C&S Done As Ordered; Casts Negative LPF (Negative); Crystals Few Calcium Oxalate HPF (Negative); Epithelial Cells Rare HPF (Negative); Mucus Negative (Negative); WBC Negative HPF (0-5)
== END 2023-01-08 15:07 | disposition home or self-care (01) ==
LOC: LBN 15:06
PROVIDERS: PCP Family Medicine; Visit Provider Nurse Practitioner Gerontology
DX: R31.9 Hematuria, unspecified (principal)
CPT/HCPCS: 81003; 81015; 87086

== ENCOUNTER 2023-02-10 13:56 | Outpatient (REF) | payer MEDICARE, OTHER, SELFPAY ==
[2023-02-10 15:12] LABS: HGB 15.1 g/dL (13.5-17.5); MCH 31.9 pg (27.0-33.0); MCHC 33.6 % (32.0-36.0); MCV 95 fL (80-95); MPV 10.8 fL (8.0-11.0); Platelet Count 151 10^3/uL (130-400); RBC 4.73 10^6/uL (4.36-5.78); RDW 12.2 % (11.8-14.1); RDW-SD 42.7 fL; WBC 4.94 10^3/uL (4.4-10.8)
[2023-02-10 15:40] LABS: Anion Gap 8.2 mmol/L (3-11); BUN 19 mg/dL (7-18); CO2 28.8 mmol/L (21.0-32.0); CREATININE 0.9 mg/dL (0.70-1.30); Calcium 9.2 mg/dL (8.5-10.1); Chloride 108 mmol/L (98-107); Estimated GFR 86.88 (mL/min/1.73m2); Glucose 138 mg/dL (74-106); Potassium 4.5 mmol/L (3.5-5.1); Sodium 145 mmol/L (136-145); TSH (W/Ref FT4) 2.03 uIU/mL (0.36-3.74)
== END 2023-02-10 13:57 | disposition home or self-care (01) ==
LOC: NCHCN 13:56
PROVIDERS: PCP Family Medicine; Visit Provider Family Medicine
DX: I48.0 Paroxysmal atrial fibrillation (principal); R06.09 Other forms of dyspnea
CPT/HCPCS: 80048; 85027; 84443

== ENCOUNTER → 2023-02-16 13:30 | Outpatient (CLI) | payer MEDICARE, OTHER, SELFPAY ==
--- NOTE | 2023-02-16 | DI.RAD_ITS ---
Exam(s) XR CHEST 2V PA LATERAL EXAM: XR CHEST 2V PA LATERAL CLINICAL HISTORY: WILSON R06.09. TECHNIQUE: 2D digital imaging was performed. COMPARISON: CR XR CHEST 2V PA LATERAL from 02/13/2022 FINDINGS: 2 views: Heart size is normal. The mediastinum is not widened. Lungs are clear. No infiltrates nor pleural effusions. Fusion hardware again partially visualized in the visualized lower cervical and upper thoracic spinal column. This appears unchanged. IMPRESSION: No acute pulmonary findings. DATA REPOSITORY: RADIATION DOSE DELIVERED:
== END ==
PROVIDERS: PCP Family Medicine; Visit Provider Family Medicine
DX: R06.09 Other forms of dyspnea (principal)
CPT/HCPCS: 71046

== ENCOUNTER 2023-02-18 04:21 | Outpatient (CLI) | payer MEDICARE, OTHER, SELFPAY ==
[2023-02-18] MEDS: Inhaler, Assist Device 1 EACH MC (16:55)
[2023-02-18] MEDS: Albuterol HFA 18 GM 200 PUFF INH IH (16:55)
--- NOTE | 2023-02-19 12:42 | W.PFT ---
Date of service: 02/18/23 Time of Service: 15:35 Pulmonary Function Test Result Indications: Dyspnea on exertion Interpretation Spirometry: There is no airflow limitation. No significant bronchodilator response. Lung Volumes: Normal lung volumes Diffusion Capacity: Normal diffusion Airway Pressure: Normal airways resistance Impression Normal pulmonary function testing Clinical Correlation therefore is recommended.
== END 2023-02-18 04:22 | disposition home or self-care (01) ==
LOC: RT 04:21
PROVIDERS: PCP Family Medicine; Visit Provider Family Medicine
DX: R06.09 Other forms of dyspnea (principal)
CPT/HCPCS: 94060; 94726; 94729

== ENCOUNTER → 2023-12-15 02:58 | Outpatient (CLI) | payer MEDICARE, OTHER, SELFPAY ==
--- NOTE | 2023-12-15 08:15 | DI.US_ITS ---
Exam(s) US RENAL EXAM: US RENAL CLINICAL HISTORY: monitoring renal mass/cyst, BPH LOC URINE OBS/LUTS. TECHNIQUE: Mast scale, color and spectral Doppler were used. COMPARISON: CT CT RENAL COLIC WO from 08/15/2021 US US RENAL from 12/17/2022 FINDINGS: Right kidney: 13.1cm Echogenicity: Normal Hydronephrosis: No. Cyst or mass: 3.7 by 3.1 x 3.2 cm cyst upper pole. No suspicious mass. Nephrolithiasis: No Left kidney: 12.1cm Echogenicity: Normal Hydronephrosis: No Cyst or mass: 1 centimeters cyst pole. Nephrolithiasis: No Bladder:Not well distended, not well evaluated. Ureters extra visualized. Prevoid vol:41 cc Postvoid vol:3 cc Prostate volume 83 cc, enlarged. IMPRESSION: Stable bilateral renal cysts. No evidence of hydronephrosis. DATA REPOSITORY:
== END ==
PROVIDERS: PCP Family Medicine; Visit Provider Nurse Practitioner Gerontology
DX: N40.1 Benign prostatic hyperplasia with lower urinary tract symptoms (principal); N28.89 Other specified disorders of kidney and ureter
CPT/HCPCS: 76770

== ENCOUNTER → 2023-12-23 10:00 | Outpatient (BNVA) | payer MEDICARE, OTHER, SELFPAY | PROVIDERS: PCP Family Medicine; Visit Provider Nurse Practitioner Gerontology | DX: N40.1 Benign prostatic hyperplasia with lower urinary tract symptoms (principal); R31.9 Hematuria, unspecified; N28.89 Other specified disorders of kidney and ureter | CPT/HCPCS: 81003; 99213 ==

== ENCOUNTER 2024-01-13 18:39 | Observation (INO) | payer MEDICARE, OTHER, SELFPAY ==
[2024-01-13] VITALS (37 sets, daily range): BP systolic 119–142; BP diastolic 64–95; PULSE 63–83; RESP 8–22; TEMP 36.6–36.7; O2SAT 91–100
--- NOTE | 2024-01-13 18:30 | RT.EKG_ITS ---
APPROVED REPORT Exam: Resting ECG Reason for Exam: Syncopal episode Patient Location: E HR:70 bpm ECG Measurements Heart Rate 70 AXIS [place] [id number] P [id number] QRSd 122 QRS 51 QT 431 T 24 QTc 464 Conclusion Atrial fibrillation...V-rate 57- 70, irreg A-activity Nonspecific intraventricular conduction delay...QRSd >115mS, not LBBB/RBBB
--- NOTE | 2024-01-13 18:45 | DI.CT_ITS ---
Exam(s) CT THORACIC LUMBAR SPINE WO EXAM: CT THORACIC LUMBAR SPINE WO CLINICAL HISTORY: pain s/p fall. TECHNIQUE: Imaging Protocol: Axial computed tomography images with coronal and sagittal reformatted images were created and reviewed. CONTRAST MATERIAL: Intravenous: None COMPARISON: CT CT HEAD CERVICAL SPINE WO from 01/13/2024 FINDINGS: THORACIC SPINAL COLUMN: Bones: Fusion hardware noted from C4 through T2. Hardware appears intact and there are no fractures at these fused levels. However, there is an oblique fracture of the anterior inferior aspect of the T4 vertebral body eviden t without displacement nor loss of height of this vertebral body and this fracture also extends throu gh the ossified anterior longitudinal ligament at this level as well as extending into the anterosupe rior right-side of T5 vertebral body. No displacement. No listhesis.. There is no retropulsed frag ment at this level. Soft tissues: The posterior wall of the upper esophagus appears thickened, as best seen on the sagitt al reconstructed images. LUMBOSACRAL SPINAL COLUMN: There is evidence of fusion L3 through L5 with bilateral intrapedicular screws and bone graft materia l at these levels. There is no hardware fracture. Laminectomies noted at these levels. Mild david listhesis L4 upon L5 which is most probably chronic and not associated with fractures nor pars defect s. Disc spaces exhibit normal height in the lumbar spine. There is multilevel facet joint fusion at the fused levels. There are degenerative changes at the L5-S1 facet joints without facet joint heavenly lignment. Sacroiliac joints appear age-appropriate Soft tissues: Incidentally noted is a small 2 millimeter calculus in the urinary bladder. Visualized pelvic ureters are not dilated. IMPRESSION: Nondisplaced fracture line through anterior aspect of T4 and upper T5, also involving the ossified an terior osseous ligament at this level. However, there is no evidence of displacement nor listhesis a nd no acute compromise of the osseous spinal canal. Evidence of fusion C4 through T2 and L3 through L5, without acute findings at these fused levels. First read by [facility]. RADIATION DOSE DELIVERED: Total DLP DATA REPOSITORY: All CT scans at this facility are submitted to the National Radiology Data Registry (NRDR) Dose Index Registry (DIR) with the [employer] ([employer]). RADIATION OPTIMIZATION: All CT scans at this facility use at least one of these dose optimization te chniques: automated exposure control; mA and/or kV adjustment per patient size (includes targeted exa ms where dose is matched to clinical indication); or iterative reconstruction.
--- NOTE | 2024-01-13 18:45 | DI.CT_ITS ---
Exam(s) CT HEAD CERVICAL SPINE WO EXAM: CT HEAD CERVICAL SPINE WO CLINICAL HISTORY: fall,pain. TECHNIQUE: Imaging Protocol: Axial computed tomography images with coronal and sagittal reformatted images were created and reviewed COMPARISON: No exams were available for comparison FINDINGS: BRAIN: There are no skull fractures. There is circumferential mucosal thickening in the maxillary sinuses, right more so than left. No associated fluid levels. There is also mucosal thickening in the spheno id sinuses and right frontal sinus as well as within ethmoidal air cells bilaterally. Mastoid air ce lls are clear with no effusions. There is no evidence of intracranial hemorrhage, mass effect, or shift of midline structures. There are no extra-axial fluid collections. The ventricles are not enlarged or shifted and there is no blo od within the ventricular system nor within the basal cisterns. There is symmetrical involutional change consistent with this patient's advanced age. CERVICAL SPINE: There is posterior fusion hardware C4 down to T2 as well as bilateral bone graft at these levels. There is no evidence of acute fracture or significant listhesis. There is multilevel facet joint fus ion also evident. There is no significant facet joint malalignment. No significant osseous lesions evident. IMPRESSION: No acute intracranial findings on this noninfused CT scan of the brain. No evidence of acute cervical spine fracture, malalignment, nor acute compromise of the cervical spin al canal. Multilevel fusion of the cervical spine noted C4 through T2. RADIATION DOSE DELIVERED: Total DLP DATA REPOSITORY: All CT scans at this facility are submitted to the National Radiology Data Registry (NRDR) Dose Index Registry (DIR) with the [employer] ([employer]). RADIATION OPTIMIZATION: All CT scans at this facility use at least one of these dose optimization te chniques: automated exposure control; mA and/or kV adjustment per patient size (includes targeted exa ms where dose is matched to clinical indication); or iterative reconstruction.
--- NOTE | 2024-01-13 18:51 | W.ED.GENAD ---
Discharge Plan Disposition Patient Disposition: Admit to [facility] Condition: Stable Discharge Details Chief Complaint: Fall/Non TraumaCriteria Clinical Impression: Syncope, Closed T4 fracture Primary Care Provider: Isaac Childers ED Provider: Rodo Fine Home Meds and New Rx's Prescriptions: No Action ipratropium bromide 0.03 % spray,non-aerosol 2 spray CICI BID PRN atorvastatin 10 mg tablet 10 mg PO HS metoprolol succinate 25 mg cap,sprinkle,ER 24hr dose pack 25 mg PO HS acetaminophen 650 mg tablet extended release 650 mg PO PRN cyclosporine [Restasis] 0.05 % dropperette 1 drp ophthalmic (eye) Q12H tamsulosin [Flomax] 0.4 mg capsule 0.4 mg PO QHS Eliquis 5 mg tablet 5 mg PO BID ipratropium bromide 21 mcg (0.03 %) spray,non-aerosol 2 spray intranasal DAILY Rx Instructions: administer into each nostril amoxicillin 500 mg capsule 2,000 mg PO ONCE Patient Comments: for dental procedures cholecalciferol (vitamin D3) 1,000 UNITS tablet 1,000 unit PO DAILY Ocuvite with Lutein 1 EACH tablet 1 tab PO DAILY dibucaine 1 % ointment 1 applic HI QID PRNQty: 56 2RF HPI General Mode of arrival: EMS. Date/Time Provider Initiated Documentation: 01/13/24 18:46. Limitations to Documentation: no limitations. Information obtained by: patient. History of Present Illness 78 year old M presents to the emergency department with the chief complaint of syncope, described as moderate, Patient started experiencing this hour(s) (1) and it has been now resolved. No relieving factors improve symptom(s), No exacerbating factors reported . Patient notes no other symptoms.. Patient did receive the following treatments prior to arrival, none Related Data Home Medications ?Medication ?Instructions ?Recorded ?Confirmed cholecalciferol (vitamin D3) 25 1,000 unit PO DAILY 09/25/12 01/13/24 mcg (1,000 unit) tablet vit A 300 mcg-C 200 mg-E 27 1 tab PO DAILY 09/25/12 01/13/24 mg-lutein 2 mg and minerals tablet (Ocuvite with Lutein) atorvastatin 10 mg tablet 10 mg PO HS 09/26/18 01/13/24 ipratropium bromide 21 mcg (0.03 2 spray intranasal BID PRN 09/26/18 01/13/24 %) nasal spray metoprolol succinate 25 mg capsule 25 mg PO HS 09/26/18 01/13/24 sprinkle, ext. release 24 hr acetaminophen 650 mg 650 mg PO PRN 08/11/21 01/13/24 tablet,extended release dibucaine 1 % rectal ointment 1 applic HI QID PRN #56 grams 08/26/21 01/13/24 apixaban 5 mg tablet (Eliquis) 5 mg PO BID 06/17/22 01/13/24 cyclosporine 0.05 % eye drops in a 1 drp ophthalmic (eye) Q12H 12/22/22 01/13/24 dropperette (Restasis) tamsulosin 0.4 mg capsule (Flomax) 0.4 mg PO QHS 12/22/22 01/13/24 amoxicillin 500 mg capsule 2,000 mg PO ONCE 12/23/23 01/13/24 ipratropium bromide 21 mcg (0.03 2 spray intranasal DAILY 12/23/23 01/13/24 %) nasal spray Previous Rx's ?Medication ?Instructions ?Recorded dibucaine 1 % rectal ointment 1 applic HI QID PRN #56 grams 08/26/21 Allergies Allergy/AdvReac Type Severity Reaction Status Date / Time hydrocodone Allergy Psychosis Verified 01/13/24 18:45 methocarbamol Allergy I stop Unverified 01/13/24 18:45 breathing tramadol Allergy Unknown Verified 01/13/24 18:45 cephalexin AdvReac Intermediate Other (See Unverified 01/13/24 18:45 Comment) NSAIDS (Non-Steroidal AdvReac Unknown Other (See Verified 01/13/24 18:45 Anti-Inflamma Comment) General Stated Complaint: Fall/Non TraumaCriteria ANDIE: 3 Review of Systems All systems reviewed & are unremarkable except as noted in HPI and below Constitutional Constitutional: Denies chills, Denies fever(s) and Denies weakness Cardiovascular Cardiovascular: Denies chest pain and Denies dyspnea Respiratory Respiratory: Denies cough and Denies dyspnea Gastrointestinal Gastrointestinal: Denies abdominal pain, Denies nausea and Denies vomiting Integumentary/Breasts Skin/Breast: Denies rash Neurologic Neurologic: Denies weakness Psychiatric Psychiatric: Denies depression Exam Const General: no acute distress Orientation: alert HENMT Head: normal to inspection Ears: external ears normal General nose exam: external nose normal Mouth: moist mucous membranes Eyes General: appearance normal, both eyes and all related structures Neck Neck: normal visual inspection Chest Chest: no tenderness Resp Effort & Inspection: normal respiratory effort and able to speak in complete sentences Auscultation: clear to auscultation bilaterally Cardio Jugular venous pressure: no JVD GI Palpation: soft and nontender Back/Spine/Pelvis Back: no CVA tenderness and No erythema Skin General skin exam: no rashes or lesions noted Neuro General: patient alert and patient oriented x3 Extrem General: normal to inspection Psych Mental Status: mental status grossly normal Course Vital Signs Vital signs: Vital Signs Temperature 36.7 C 01/13/24 18:39 Pulse 75 01/13/24 18:39 Respiratory Rate 16 01/13/24 18:39 Blood Pressure 141/93 H 01/13/24 18:39 Pulse Oximetry 98 01/13/24 18:39 Temperature 36.7 C 01/13/24 18:39 Pulse 75 01/13/24 18:39 Respiratory Rate 16 01/13/24 18:39 Blood Pressure 141/93 H 01/13/24 18:39 Pulse Oximetry 98 01/13/24 18:39 Medical Decision Making 78-year-old male with a history of A-fib on Eliquis comes in after he lost consciousness. He said he had been doing a lot of work around the house and exerting himself and sat in his lawn chair in his garage for about 10 to 15 minutes. He then stood up and started walking lightheaded and lost consciousness falling backwards. He woke up quickly after and his called EMS. He denies having any chest pain during the day or surrounding this event, no difficulty breathing, no fevers, no abdominal pain. He has a mild posterior headache where he hit his head and has no lax or abrasions there. He has no midline C-spine tenderness does have some lower T and upper L-spine tenderness without palpable deformity. No chest or abdomen tenderness, he has no focal neurological deficits. I suspect orthostasis given he exerted himself during the day and then it is stood up after sitting. Will check a CBC, CMP, troponin and given the fall and landing on his back with pain in the head and back will obtain CT head C-spine T and L-spine. Labs unremarkable, pending second Trope. CT shows a T4 fracture with no spinal cord impingement. Patient stable but still having pain, states he cannot take any opiates due to psychosis and hallucinations, will trial lidocaine patch and gabapentin. Discussed with him and given he cannot get out of bed currently in his current state will discuss with hospitalist about admission for further pain control and PT in the morning Differential Diagnosis Differential Diagnosis: orthostasis, concussion, contusion Imaging Data Radiologic Study: Attestation: I personally reviewed and interpreted this imaging study as follows: Imaging: CT Scan Radiologist's impression: no acute findings head/cspine ct Radiologic Study #2: Attestation: I personally reviewed and interpreted this imaging study as follows: Imaging: CT Scan Radiologist's impression: IMPRESSION: Nondisplaced anterior inferior fracture of T4. Lab Data Lab results reviewed: Yes I reviewed the patient's lab results. ECG Data Attestation: I personally reviewed and interpreted this ECG (s) as follows: Prior ECG tracings: available for review Interpretation: afib rate of 70 no stemi Quality:SDOH Health Related Social Needs: No Data to Display PFSH All Active Problems (Updated 01/13/24 @ 21:37 by Rodo Fine MD) Closed T4 fracture (Acute) Syncope (Chronic) Fecal soiling (Chronic) Hemorrhoids, external (Chronic) History of hematuria (Chronic) Seborrheic keratoses (Chronic) Atrial fibrillation (Chronic) Lumbar spinal stenosis (Chronic) Venous insufficiency (Chronic) Fatty infiltration of liver (Chronic) Encounter for screening colonoscopy (Acute) Diverticular disease of colon (Acute) Thrombosed external hemorrhoid (Acute) Internal hemorrhoids with complication (Acute) BPH loc w urin obs/LUTS (Acute) Hematuria (Acute) Renal mass (Acute) Tubulovillous adenoma (Acute ~10/2018) Tubular adenoma (Acute ~10/2018) Medical History (Updated 01/13/24 @ 21:37 by Rodo Fine MD) Polyp of colon [place] 11-11-, villous/tubulovillous/sessile serrated. Dr Marisol Florence, [facility], repeat 3 years. 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 -BR 08/25/21: Pt. states this was cataract surgery not cornea-JW Adenomatous colon polyp Surgical History (Updated 08/29/21 @ 09:35 by Cristy Hadley RN) History of cataract surgery Bilateral History of vasectomy History of back surgery (x2) History of tonsillectomy History of knee replacement Left knee History of colonoscopy (~08/26/21) Family History Other Cancer Diabetes Social History (Updated 10/17/18 @ 12:35 by DAVIN Spence) Smoking/Tobacco Use Status: Former Tobacco Use Quit Date: 10/26/77 Smoking risk assessment performed?: Yes Alcohol Intake: current Alcohol Intake frequency: 3 or more drinks per day Alcohol type: hard liquor Drug use: Never Substance use type: does not use Housing: house Do you feel safe at home: Yes Do you feel safe in your relationship?: Yes
[2024-01-13] MEDS: Acetaminophen 500 MG TAB 1000 MG PO (19:00)
[2024-01-13] MEDS: Normal Saline 1,000 ML 1000 ML IV (19:00)
[2024-01-13 19:11] LABS: Abs Immature Grans 0.04 10^3/uL (0.0-0.06); Absolute Basophil Count 0.02 10^3/uL (0.0-0.2); Absolute Lymphocyte Count 2.27 10^3/uL (1.2-3.4); Absolute Monocyte Count 0.67 10^3/uL (0.1-0.8); Absolute Neutrophil Count 3.08 10^3/uL (1.2-6.7); Basophils % 0.3 %; Eosinophils % 1.6 %; HCT 44.4 % (40.0-50.0); HGB 15.3 g/dL (13.5-17.5); Immature Grans % 0.6 %; Lymphocytes % 36.7 %; MCH 32.7 pg (27.0-33.0); MCHC 34.5 % (32.0-36.0); MCV 95 fL (80-95); MPV 10.4 fL (8.0-11.0); Monocytes % 10.8 %; Platelet Count 152 10^3/uL (130-400); RBC 4.68 10^6/uL (4.36-5.78); RDW 11.9 % (11.8-14.1); RDW-SD 41.2 fL; WBC 6.18 10^3/uL (4.4-10.8)
[2024-01-13 19:21] LABS: INR 1.2 (0.9-1.1); PTT Activated 25.4 sec (23.6-32.8); Prothrombin Time 12.2 sec (9.1-11.1)
[2024-01-13 19:25] LABS: ALT 41 U/L (16-63); AST 30 U/L (15-37); Albumin 3.4 g/dL (3.4-5.0); Alkaline Phosphatase 54 U/L (46-116); Anion Gap 6.4 mmol/L (3-11); BUN 17 mg/dL (7-18); Bilirubin, Total 0.81 mg/dL (0.2-1.0); CO2 28.6 mmol/L (21.0-32.0); CREATININE 0.8 mg/dL (0.70-1.30); Calcium 8.4 mg/dL (8.5-10.1); Chloride 106 mmol/L (98-107); Estimated GFR 89.47 (mL/min/1.73m2); Glucose 106 mg/dL (74-106); Magnesium 1.7 mg/dL (1.8-2.4); Potassium 3.9 mmol/L (3.5-5.1); Sodium 141 mmol/L (136-145); Total Protein 6.9 g/dL (6.4-8.2)
[2024-01-13 19:30] LABS: Troponin I < 50 ng/L (< or =60)
--- NOTE | 2024-01-13 21:03 | DI.VRAD_ITS ---
PROCEDURE INFORMATION: Exam: CT Head Without Contrast Exam date and time: 01/13/2024 7:45 PM Age: 78 years old Clinical indication: Injury or trauma; Fall; Blunt trauma (contusions or hematomas) TECHNIQUE: Imaging protocol: Computed tomography of the head without contrast. COMPARISON: MR CERVICAL SPINE WO 10/22/2020 2:03 PM FINDINGS: Brain: Cerebral volume loss noted. Scattered areas of decreased attenuation in the deep periventricular white matter consistent with small vessel ischemic change. No evidence for acute intracranial hemorrhage. Cerebral ventricles: No ventriculomegaly. Paranasal sinuses: [id number] right mucoperiosteal maxillary sinus thickening with mild sphenoid involvement, right frontal involvement and moderate to severe involvement of the ethmoid air cells. Mastoid air cells: Visualized mastoid air cells are well aerated. Bones: See Paranasal sinuses finding. Soft tissues: Unremarkable. IMPRESSION: Senescent changes noted. No acute intracranial abnormality. PROCEDURE INFORMATION: Exam: CT Cervical Spine Without Contrast Exam date and time: 01/13/2024 7:45 PM Age: 78 years old Clinical indication: Injury or trauma; Fall; Blunt trauma (contusions or hematomas) TECHNIQUE: Imaging protocol: Computed tomography of the cervical spine without contrast. COMPARISON: MR CERVICAL SPINE WO 10/22/2020 2:03 PM FINDINGS: Bones: The patient is status post cervical spine fusion C4-T1. Vertebral body height appears well preserved. There is no evidence for fracture. Teeth: The patient is edentulous. Lungs: Lung apices are normal. Thyroid: Left thyroid calcification. Soft tissues: Unremarkable. IMPRESSION: No evidence for acute posttraumatic abnormality. Postsurgical fusion changes as noted. Dictated and Authenticated by: Dayami Kapadia MD. Ordering:WALKER Koehler MD
--- NOTE | 2024-01-13 21:21 | DI.VRAD_ITS ---
PROCEDURE INFORMATION: Exam: CT Thoracic Spine Without Contrast Exam date and time: 01/13/2024 7:55 PM Age: 78 years old Clinical indication: Injury or trauma; Fall; Blunt trauma (contusions or hematomas); Prior surgery; Surgery date: 6+ months; Surgery type: Lumbar fusion TECHNIQUE: Imaging protocol: Computed tomography of the thoracic spine without contrast. COMPARISON: CT HEAD CERVICAL SPINE WO 01/13/2024 7:45 PM FINDINGS: Bones/joints: Status post lower cervical upper thoracic fusion up to T2. There is calcification of the anterior spinal longitudinal ligament. There is a fracture through the anterior inferior aspect of T4. There is no loss of vertebral body height. The fracture includes the ossified spinal longitudinal ligament anteriorly. No retropulsion or stenosis. Soft tissues: Unremarkable. Vasculature: Mild atherosclerotic change present in the vasculature. Gallbladder and biliary ducts: Gallstones. Other findings: Respiratory motion noted. IMPRESSION: Nondisplaced anterior inferior fracture of T4. PROCEDURE INFORMATION: Exam: CT Lumbar Spine Without Contrast Exam date and time: 01/13/2024 7:55 PM Age: 78 years old Clinical indication: Injury or trauma; Fall; Blunt trauma (contusions or hematomas); Prior surgery; Surgery date: 6+ months; Surgery type: Lumbar fusion TECHNIQUE: Imaging protocol: Computed tomography of the lumbar spine without contrast. COMPARISON: MR lumbar spine wo 09/16/2018 3:34 PM FINDINGS: Bones/joints: Status post lumbar fusion L3-L5. Vertebral body height is well preserved. No fracture. Soft tissues: Unremarkable. IMPRESSION: Lower lumbar fusion. No evidence for fracture. I discussed case findings with Rodo Fine 01/13/2024 9:21 PM EDT. Dictated and Authenticated by: Dayami Kapadia MD. Ordering:WALKER Koehler MD
[2024-01-13] MEDS: Lidocaine 5% Patch 1 PATCH TP (21:36)
--- NOTE | 2024-01-13 21:38 | HPE_ITS ---
Date of service: 01/13/24 Time of Service: 21:38 Assessment and Plan Assessment and plan (1) Intractable back pain: Status: Acute Assessment and plan: -fell after doing house work -normal neuro exam, no acute fining on i,aging in ED -patient reportedly highly sensitive to opiates; experiences hallucinations -lidocaine patch placed in ED, will comtinue -given 300mg gabapentin in ED, will continue TID -PT consult in AM (2) Syncope: Status: Chronic Assessment and plan: -likely orthostatic -EKG unremarkable, trop negative -s/p IVF in ED (3) Atrial fibrillation: Status: Chronic Assessment and plan: -continue home eliquis and metoprolol History of Present Illness History of Present Illness Chief Complaint: Back pain Narrative: 78yo male with PMH a-fib on eliquis who presents to ED after experiencing a fall. Patient states that he was doing work around his house and exerting himself in the heat. He sat down for about 10-15 minutes and upon standing up he felt lightheaded, lost consciousness falling backwards but quick regaining consciousness prompting his to call EMS. He denies any chest pain, headache, ongoing lightheadedness or dizziness. In the ED he was noted as having normal vital signs, labs, and negative head, C and L-spine CTs. However, he did complain of significant back pain and was unable to ambulate while in the ED. Additionally, he stated that he is very sensitive to opiate medications and that they caused him to hallucinate. He had a lidocaine patch placed in the ED and was given 300mg PO gabapentin. At which time ED physician paged hospitalist for admission for a patient with syncope likely due to orthostatic hypotension and intractable back pain. Review of Systems All systems reviewed & are unremarkable except as noted in HPI and below PFSH All Active Problems (Updated 01/13/24 @ 21:39 by Joe Lanier MD) Intractable back pain (Acute) Closed T4 fracture (Acute) Syncope (Chronic) Fecal soiling (Chronic) Hemorrhoids, external (Chronic) History of hematuria (Chronic) Seborrheic keratoses (Chronic) Atrial fibrillation (Chronic) Lumbar spinal stenosis (Chronic) Venous insufficiency (Chronic) Fatty infiltration of liver (Chronic) Encounter for screening colonoscopy (Acute) Diverticular disease of colon (Acute) Thrombosed external hemorrhoid (Acute) Internal hemorrhoids with complication (Acute) BPH loc w urin obs/LUTS (Acute) Hematuria (Acute) Renal mass (Acute) Tubulovillous adenoma (Acute ~10/2018) Tubular adenoma (Acute ~10/2018) Medical History (Updated 01/13/24 @ 21:39 by Joe Lanier MD) Polyp of colon [place] 11-11-18, villous/tubulovillous/sessile serrated. Dr Marisol Florence, [facility], repeat 3 years. 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 -BR 08/25/21: Pt. states this was cataract surgery not cornea-JW Adenomatous colon polyp Surgical History (Updated 08/29/21 @ 09:35 by Cristy Hadley RN) History of cataract surgery Bilateral History of vasectomy History of back surgery (x2) History of tonsillectomy History of knee replacement Left knee History of colonoscopy (~08/26/21) Family History Other Cancer Diabetes Social History (Updated 10/17/18 @ 12:35 by DAVIN Spence) Smoking/Tobacco Use Status: Former Tobacco Use Quit Date: 10/26/77 Smoking risk assessment performed?: Yes Alcohol Intake: current Alcohol Intake frequency: 3 or more drinks per day Alcohol type: hard liquor Drug use: Never Substance use type: does not use Housing: other Do you feel safe at home: Yes Do you feel safe in your relationship?: Yes Meds Allergies and Home Medications Allergies Allergy/AdvReac Type Severity Reaction Status Date / Time hydrocodone Allergy Psychosis Verified 01/13/24 18:45 methocarbamol Allergy I stop Unverified 01/13/24 18:45 breathing tramadol Allergy Unknown Verified 01/13/24 18:45 cephalexin AdvReac Intermediate Other (See Unverified 01/13/24 18:45 Comment) NSAIDS (Non-Steroidal AdvReac Unknown Other (See Verified 01/13/24 18:45 Anti-Inflamma Comment) Home Medications ?Medication ?Instructions ?Recorded ?Confirmed ?Type cholecalciferol (vitamin D3) 25 1,000 unit PO DAILY 09/25/12 01/13/24 History mcg (1,000 unit) tablet vit A 300 mcg-C 200 mg-E 27 1 tab PO DAILY 09/25/12 01/13/24 History mg-lutein 2 mg and minerals tablet (Ocuvite with Lutein) atorvastatin 10 mg tablet 10 mg PO HS 09/26/18 01/13/24 History ipratropium bromide 21 mcg (0.03 2 spray intranasal BID PRN 09/26/18 01/13/24 History %) nasal spray metoprolol succinate 25 mg capsule 25 mg PO HS 09/26/18 01/13/24 History sprinkle, ext. release 24 hr acetaminophen 650 mg 650 mg PO PRN 08/11/21 01/13/24 History tablet,extended release dibucaine 1 % rectal ointment 1 applic NE QID PRN #56 grams 08/26/21 01/13/24 Rx apixaban 5 mg tablet (Eliquis) 5 mg PO BID 06/17/22 01/13/24 History cyclosporine 0.05 % eye drops in a 1 drp ophthalmic (eye) Q12H 12/22/22 01/13/24 History dropperette (Restasis) tamsulosin 0.4 mg capsule (Flomax) 0.4 mg PO QHS 12/22/22 01/13/24 History amoxicillin 500 mg capsule 2,000 mg PO ONCE 12/23/23 01/13/24 History ipratropium bromide 21 mcg (0.03 2 spray intranasal DAILY 12/23/23 01/13/24 History %) nasal spray Exam Narrative Exam Narrative: well appearing older gentleman laying in bed in no acute distress, AOx4, heart RRR, lungs CTAB, abdomen soft, non-tender, non-distended, normal strength and sensation in bilateral upper extremities, decreased strength in bilateral lower extremities due to pain but with normal sensation Results Labs 01/13/24 18:46 01/13/24 18:46 Labs: Laboratory Results - last 24 hr 01/13/24 18:46 WBC 6.18 RBC 4.68 Hgb 15.3 Hct 44.4 MCV 95 MCH 32.7 MCHC 34.5 RDW 11.9 Plt Count 152 MPV 10.4 Immature Gran % 0.6 Neutrophils % 50.0 Lymphocytes % 36.7 Monocytes % 10.8 Eosinophils % 1.6 Basophils % 0.3 Nucleated RBC % 0.0 Absolute Neutrophils 3.08 Absolute Lymphocytes 2.27 Absolute Monocytes 0.67 Absolute Eosinophils 0.10 Absolute Basophils 0.02 PT 12.2 H INR 1.2 H APTT 25.4 Sodium 141 Potassium 3.9 Chloride 106 Carbon Dioxide 28.6 Anion Gap 6.4 BUN 17 Creatinine 0.8 Est GFR (CKD-EPI 2020) 89.47 Glucose 106 Calcium 8.4 L Magnesium 1.7 L Total Bilirubin 0.81 AST 30 ALT 41 Alkaline Phosphatase 54 Troponin I < 50 Total Protein 6.9 Albumin 3.4 Last Vital Signs Temp 98.1 F 01/13/24 18:39 Pulse 80 01/13/24 21:15 Resp 14 01/13/24 21:21 BP 140/92 H 01/13/24 21:15 Pulse Ox 96 01/13/24 21:21 Time Spent Time spent with Patient: >75 minutes Time was spent: preparing to see the patient(eg.review tests), obtaining and/or reviewing separately otained hiistory, ordering medications,tests, procedures, referring, communicating with other health ambulatory care coordinator, indepentently interpreting results, counseling the patient and care coordination
[2024-01-13 21:40] LABS: Troponin I < 50 ng/L (< or =60)
[2024-01-13] MEDS: Gabapentin 300 MG CAP PO (21:45)
[2024-01-13] MEDS: Normal Saline Flush 10 ML SYR IVP (23:19)
--- NOTE | 2024-01-14 00:29 | W.PC.ACHO ---
Registration Status: Primary Language: Preferred Language: ED Information & Data Chief Complaint Fall/Non TraumaCriteria 01/13/24 19:02 Chief Complaint Fall/Non TraumaCriteria 01/13/24 18:51 Triage Note outside today in lawn chair 01/13/24 18:39 and 1730, when to turn and walk away he fell, hit concrete, LOC/fell asleep. partner found him and he was snoring and woke easily. GCS 15, axox3. Pain minimal 1000 mg IV APAP. MId back pain, hx arthritis, back surg w/ rods in back. pt reports he did hit head. on blood thinners. declined c- collar. Medical / Surgical History (Last Reviewed 08/26/21 @ 08:32 by Estee Barnes) Polyp of colon Adenomatous polyps Cornea transplant recipient Adenomatous colon polyp (Last Updated 08/29/21 @ 09:35 by Cristy Hadley RN) History of cataract surgery History of vasectomy History of back surgery History of tonsillectomy History of knee replacement History of colonoscopy (~08/26/21) Most Recent Vital Signs Temperature 36.6 C 01/13/24 23:06 Pulse 83 01/13/24 23:06 Pulse Rhythm Regular 01/13/24 23:06 Pulse 74 01/13/24 22:31 Respiratory Rate 22 01/13/24 23:06 Respiratory Effort Non-Labored, Short of Breath 01/13/24 23:06 Respiratory Depth Shallow 01/13/24 23:06 Respiratory Pattern Normal 01/13/24 23:06 Blood Pressure 122/78 01/13/24 23:06 Blood Pressure Mean 91 01/13/24 22:31 Pulse Oximetry 98 01/13/24 23:06 Oxygen Delivery Method Room Air 01/13/24 23:06 Oxygen Flow Rate 0 01/13/24 23:06 Pain Level 5 01/13/24 23:06 Allergies hydrocodone Allergy (Verified 01/13/24 18:45) Psychosis pt. states I go crazy methocarbamol Allergy (Unverified 01/13/24 18:45) I stop breathing tramadol Allergy (Verified 01/13/24 18:45) Unknown pt. states I don't remember what happens when I take that medication cephalexin Adverse Reaction (Intermediate, Unverified 01/13/24 18:45) Other (See Comment) Pt. states gut pain and vomiting NSAIDS (Non-Steroidal Anti-Inflamma Adverse Reaction (Unknown, Verified 01/13/24 18:45) Other (See Comment) Increased risk of bleeding while on Eliquis Precautions Isolation Standard precaution 01/13/24 19:02 Active Medications Generic Name Dose Route Start Last Admin Trade Name Gordo PRN Reason Stop Dose Admin Sodium Chloride 0 ml 01/13/24 20:00 01/13/24 23:19 Normal Saline Flush 10 Ml Syr IVP 10 ml BID MARIANN Administration IV IV Catheter Type [Right Saline Lock Antecubital] IV Catheter Type [Left Saline Lock Antecubital] IV Catheter Gauge [Right 18 Antecubital] IV Catheter Gauge [Left 18 Antecubital] Diet Orders Category Date Time Status Regular/Normal [DIET] Nutrition 01/14/24 Breakfast Active Diagnostics 01/13/24 01/13/24 Range/Units 21:16 18:46 WBC 6.18 (4.4-10.8) 10^3/uL RBC 4.68 (4.36-5.78) 10^6/uL Hgb 15.3 (13.5-17.5) g/dL Hct 44.4 (40.0-50.0) % MCV 95 (80-95) fL MCH 32.7 (27.0-33.0) pg MCHC 34.5 (32.0-36.0) % RDW 11.9 (11.8-14.1) % Plt Count 152 (130-400) 10^3/uL MPV 10.4 (8.0-11.0) fL Immature Gran % 0.6 % Neutrophils % 50.0 % Lymphocytes % 36.7 % Monocytes % 10.8 % Eosinophils % 1.6 % Basophils % 0.3 % Nucleated RBC % 0.0 (0.0-0.3) % Absolute Neutrophils 3.08 (1.2-6.7) 10^3/uL Absolute Lymphocytes 2.27 (1.2-3.4) 10^3/uL Absolute Monocytes 0.67 (0.1-0.8) 10^3/uL Absolute Eosinophils 0.10 (0.0-0.7) 10^3/uL Absolute Basophils 0.02 (0.0-0.2) 10^3/uL PT 12.2 H (9.1-11.1) sec INR 1.2 H (0.9-1.1) APTT 25.4 (23.6-32.8) sec Sodium 141 (136-145) mmol/L Potassium 3.9 (3.5-5.1) mmol/L Chloride 106 (98-107) mmol/L Carbon Dioxide 28.6 (21.0-32.0) mmol/L Anion Gap 6.4 (3-11) mmol/L BUN 17 (7-18) mg/dL Creatinine 0.8 (0.70-1.30) mg/dL Est GFR (CKD-EPI 2020) 89.47 (mL/min/1.73m2) Glucose 106 (74-106) mg/dL Calcium 8.4 L (8.5-10.1) mg/dL Magnesium 1.7 L (1.8-2.4) mg/dL Total Bilirubin 0.81 (0.2-1.0) mg/dL AST 30 (15-37) U/L ALT 41 (16-63) U/L Alkaline Phosphatase 54 (46-116) U/L Troponin I < 50 < 50 (< or =60) ng/L Total Protein 6.9 (6.4-8.2) g/dL Albumin 3.4 (3.4-5.0) g/dL Intake and Output - 24 Hour Total 01/13/24 18:34 thru 01/13/24 23:06 Intake Total 1000 Balance 1000 Weight 107.6 kg Intake: IV 1000 Other: Urine Appearance Clear Falls Risk Assessment History of Falls Admit Due to Fall 01/13/24 23:06 Contributing Factors Impairments 01/13/24 23:06 Ambulatory Aids Independent 01/13/24 23:06 Tubes/Lines None 01/13/24 23:06 Gait Evaluation W/any additional score 01/13/24 23:06 Cognition No cognitive impairment 01/13/24 23:06 Fall Total Score 48 01/13/24 23:06 Level of Risk Moderate Risk 01/13/24 23:06 Problems (Last Reviewed 08/26/21 @ 08:32 by Estee Barnes) Intractable back pain (Acute) Syncope (Chronic) Atrial fibrillation (Chronic) v v v v v v v v v Sending and/or Receiving Nurses: Please use comment section below to note any information pertinent to the patient hand-off not included above. Information / Comments: Pt fell outside his home this afternoon; found by housemate unconscious on ground. Pt does not have memory of the event. Has displaced T4 fracture; admitted for pain control. Pt is on Eliquis; head CT was not indicative for hemorrhage. History of cervical and lumbar surgeries. Received tylenol, gabapentin, lidocaine patch in ED. Fluid bolus completed in ED. Listed allergies include opiates and NSAIDs. Pt tense, encouraged to practice deep breathing and relaxation techniques. VSS Report received from: Willi Daniels RN 01/13/2024 @ 2235
[2024-01-14] MEDS: Lidocaine 2% Jelly 11 ML SYR UR (01:21)
[2024-01-14] MEDS: Tamsulosin 0.4 MG CAPCR PO ×2 (01:21→20:32)
[2024-01-14] MEDS: Acetaminophen 325 MG TAB PO ×4 (02:30→18:40)
[2024-01-14 02:31] VITALS: BP 147/95; PULSE 80; RESP 20; TEMP 37.1; O2SAT 97
[2024-01-14 08:01] VITALS: BP 150/86; PULSE 82; RESP 14; TEMP 36.8; O2SAT 95
[2024-01-14] MEDS: Beta-Carotene(A) w/C,E, & Minerals TAB 1 TAB PO (09:15)
[2024-01-14] MEDS: Gabapentin 300 MG CAP PO ×3 (09:15→20:32)
[2024-01-14] MEDS: Apixaban 5 MG TAB PO ×2 (09:15→20:32)
[2024-01-14] MEDS: Normal Saline Flush 10 ML SYR IVP ×3 (09:36→20:31)
--- NOTE | 2024-01-14 10:03 | IN_ITS ---
PT Notes Visit Reasons: Intractable Pain Inpatient Physical Therapy Evaluation Date: 01/14/24 Referring Doctor: Dr. Joe Lanier PT Orders: PT CONSULT: limited ability to ambulate Precautions: fx T4 Patient Profile/Admitting Diagnosis: Nakul admitted on observation status after fall at home resulting in T4 vertebral body fx. This is in the presence of multi-level cervical and thoracic fusion, ending at T2. Fall felt to be caused by syncopal episode. Social History/Home Situation: Nakul lives in a private home with his partner, [facility] He reports 3 LENARD the home, then single level. Independent at baseline; had been working on his tractor prior to fall. Has a FWW from previous knee surgery, but does not use AD at baseline. Equipment Owned/DME: FWW Subjective: Nakul states that he is having a great deal of pain. Requests Tylenol prior to PT session. Nursing reports difficulty administering pills due to position in bed. Objective: General Observation: Resting in bed, in obvious discomfort. Cries out during head movements and initially apprehensive about limb movements. IV in RUE. Brar catheter in place, but leaking; nursing alerted. Mental Status: A&Ox3. Pleasant and cooperative throughout. Pain: left shoulderblade, improved in sitting ROM: Initially very apprehensive with limb movement, requiring slow, cautious AAROM and encouragement. Eventually able to tolerate the following without discomfort: Right Upper Extremity: AROM allow 120* flexion. IR/ER WFL actively. Left Upper Extremity: AROM allow 120* flexion. IR/ER WFL actively. Right Lower Extremity: AROM allow 120* flexion. IR/ER WFL actively. Left Lower Extremity: AROM allow 120* flexion. IR/ER WFL actively. Cervical motion allows rotation to approx 30* to each side. Strength: No overpressure applied for MMT due to acute spinal fx. Right Upper Extremity: Grossly 3/5 for all motions of the shoulder, elbow and wrist. Left Upper Extremity: Grossly 3/5 for all motions of the shoulder, elbow and wrist. Right Lower Extremity: Hip flexion 3/5. Quads >3/5. Ankle DF 3/5 or greater. Left Lower Extremity: Hip flexion 3/5. Quads >3/5. Ankle DF 3/5 or greater. Sensation: intact through UEs and LEs Bed Mobility/Transfers: scooting in bed: max A x 2 supine-sit: instructed in log-roll technique, with min A for UE upper extremity support. Able to perform with min A and cues only, with good pain tolerance sit-stand: CGA with cues for technique stand-sit: CGA, cues for UE support for slow lowering to chair chair-commode: SBA with FWW Gait: Ambulates 6' with FWW, CGA. Balance: Static Sitting: good Dynamic Sitting: good Static Standing: good Dynamic Standing: fair Special Tests: Mobility Limitations Standardized Measure [facility] AM-PAC 6 clicks Basic Mobility Inpatient Short Form: Raw Score: 22 CMS Score: 36% impairment Informed Consent/Education: Patient instructed in purpose of PT consult and plan of care. Treatment: Initial Evaluation (73589) Therapeutic Activities (11393): Instructed in log roll technique for bed mobility instructed in avoidance of forward flexion and twisting during bed mobility and transfers for back protection instructed in safe transfer technique, with sit-stand x 4 Assessment: Patient is an 78 year old male referred to physical therapy services with the diagnosis of back pain with T4 fx resulting from fall at home after syncopal episode. This is complicated by multi-level fusion above fx site. Patient initially had poorly controlled pain, however tolerated movement very well. He has a good understanding of protective back positions and techniques, and was able to demonstrate bed mobility and transfers with only minimal assistance. Anticipate that he'll be appropriate for transfer home once medically stable, but recommend HH PT to address home safety and ensure he's able to manage challenges there effectively. He requires continued PT intervention in acute care setting to maximize safety and activity tolerance prior to returning home. Patient presents with the following impairment level findings: 1. acute pain in thoracic spine 2. decreased cervical ROM 3. decreased UE strength due to pain Impairments are contributing to the following functional limitations: 1. pain with bed mobility 2. pain with transfers Patient is assessed as Low 77350 complexity based on the following: History: As above Examination: functional limitations as above Presentation: evolving Decision Making: low complexity Goals: Goals X1 week 1. Supine-Sit : supervision 2. Sit-Supine : supervision 3. Sit-Stand : supervision 4. Stand-Sit : supervision 5. Bed-Chair : supervision with FWW 6. Chair-Bed : supervision with FWW 7. Gait : supervision with FWW x 50' 8. Stairs : supervision with single rail x 3 steps Plan of Care/Treatment Plan: 1-2x/day, 7 days/week x 1 week. Plan of care has been reviewed with the TECHNICAL SPEC providing the service under Physical Therapy direction. Initiate Physical Therapy intervention for strengthening, bed mobility, transfers, gait, stairs, balance training, use of assistive device. DISCHARGE RECOMMENDATIONS: Home with services ( PT) TREATMENT CODE/TIME: [id number] ([id number], [id number]) Tammy Cleaning, PT, DPT [facility] Please sign an return this page within 30 days if you agree with the above POC. Thank you! Physician Signature Date [facility] All Active Problems (Updated 01/13/24 @ 21:39 by Joe Lanier MD) Intractable back pain (Acute) Closed T4 fracture (Acute) Syncope (Chronic) Fecal soiling (Chronic) Hemorrhoids, external (Chronic) History of hematuria (Chronic) Seborrheic keratoses (Chronic) Atrial fibrillation (Chronic) Lumbar spinal stenosis (Chronic) Venous insufficiency (Chronic) Fatty infiltration of liver (Chronic) Encounter for screening colonoscopy (Acute) Diverticular disease of colon (Acute) Thrombosed external hemorrhoid (Acute) Internal hemorrhoids with complication (Acute) BPH loc w urin obs/LUTS (Acute) Hematuria (Acute) Renal mass (Acute) Tubulovillous adenoma (Acute ~10/2018) Tubular adenoma (Acute ~10/2018) Medical History (Updated 01/13/24 @ 21:39 by Joe Lanier MD) Polyp of colon [place] 5--19, villous/tubulovillous/sessile serrated. Dr Marisol Florence, [facility], repeat 3 years. 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 -BR 08/25/21: Pt. states this was cataract surgery not cornea-JW Adenomatous colon polyp Surgical History (Updated 08/29/21 @ 09:35 by Cristy Hadley RN) History of cataract surgery Bilateral History of vasectomy History of back surgery (x2) History of tonsillectomy History of knee replacement Left knee History of colonoscopy (~08/26/21)
--- NOTE | 2024-01-14 10:22 | INITIAL_ITS ---
Date of service: 01/14/24 Time of Service: 10:22 Care Management Initial Assmt Initial Assessment Reason for Hospitalization: intractable pain Functional Status/Living Situation Patient Presentation: Nakul was sitting up in bed when CM met with him. He was pleasant and agreeable to conversation. Nakul groaned in pain during the conversation whenever he attempted to change position. He admitted to having a lot of pain but stated that he was receiving tylenol and that it helps. Nakul has had bad experiences with opioids in the past and is reluctant to take anything stronger than Tyleno l. He is on apixaban so cannot take NSAIDS. Nakul was able to get up with PT today and ambulated with a walker. He does not feel he would need rehab as Stella is almost always home and available to help him. Town of Residence: [facility] Resides with: Other (Mary Bose, his credit officer, lives with him) Significant Other/Family: Local Caregiver/Guardian: has a son who lives with Nakul's ex- and a daughter in [facility]. He also Employment Status: Retired Instrumental Activities of Daily Living (ADLs): Independent Medications Medication Management: No Issues/Barriers identified Physical Functioning/Mobility Assistive Device: will need a walker now Advance Directives Advance Directives: Do you have an Advance Directive: Y 07/21/21 15:59 AD On File at [facility]: Y 08/28/21 13:46 Date Asked 08/21/21 01/14/24 08:50 AD Date Reviewed 01/13/24 01/14/24 08:50 COLST On File at [facility] COLST Date Scanned Code Status Resuscitation Status Full Code Portal Pt does not currently have a portal and education provided: Yes Insurance Coverage/Financial Issues Insurance: Medicare [employer] Care Team Visit Care Team Role Provider Type Isaac Childers MD Primary Care Provider NON-[facility] STAFF PHYSICIAN In[facility] Other Providers OTHER Rodo Fine MD Emergency Provider [facility] STAFF PHYSICIAN Joe Lanier MD Admit Provider [facility] STAFF PHYSICIAN Attending Provider Discharge Potential Discharge Needs: PCP F/U Appt Anticipated Barriers to Discharge: Medical Status Patient/Family Education Needs: Review discharge instructions, discuss Ask Me Three Transportation: Private vehicle Plan: Anticipate Nakul will be discharged home, possibly with new home health services, when medically cleared. He will follow up with his PCP and plan of care and transport with family. CM will follow and continue to assess for discharge needs. PFSH All Active Problems (Updated 01/14/24 @ 18:55 by [place]) Hypomagnesemia (Acute) Intractable back pain (Acute) Closed T4 fracture (Acute) Syncope (Chronic) Fecal soiling (Chronic) Hemorrhoids, external (Chronic) History of hematuria (Chronic) Seborrheic keratoses (Chronic) Atrial fibrillation (Chronic) Lumbar spinal stenosis (Chronic) Venous insufficiency (Chronic) Fatty infiltration of liver (Chronic) Encounter for screening colonoscopy (Acute) Diverticular disease of colon (Acute) Thrombosed external hemorrhoid (Acute) Internal hemorrhoids with complication (Acute) BPH loc w urin obs/LUTS (Acute) Hematuria (Acute) Renal mass (Acute) Tubulovillous adenoma (Acute ~10/2018) Tubular adenoma (Acute ~10/2018) Medical History (Updated 01/14/24 @ 18:55 by [place]) Polyp of colon [place] 5-17-19, villous/tubulovillous/sessile serrated. Dr Marisol Florence, [facility], repeat 3 years. 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 -BR 08/25/21: Pt. states this was cataract surgery not cornea-JW Adenomatous colon polyp Surgical History (Updated 08/29/21 @ 09:35 by Cristy Hadley RN) History of cataract surgery Bilateral History of vasectomy History of back surgery (x2) History of tonsillectomy History of knee replacement Left knee History of colonoscopy (~08/26/21) Family History Other Cancer Diabetes Social History (Updated 10/17/18 @ 12:35 by DAVIN Spence) Smoking/Tobacco Use Status: Former Tobacco Use Quit Date: 10/26/77 Smoking risk assessment performed?: Yes Alcohol Intake: current Alcohol Intake frequency: 3 or more drinks per day Alcohol type: hard liquor Drug use: Never Substance use type: does not use Housing: other Do you feel safe at home: Yes Do you feel safe in your relationship?: Yes SDOH(Care Management) Screening Will the Patient Participate in the Screening?: Yes Do you worry about having a steady place to live?: no Problems where you live: mold In the past 12 months, have you had to go without electric, gas, oil or water in your home?: no Have you or anyone in your house had to go without enough food to eat?: no Has lack of transportation kept you from medical appointments or from doing things needed for daily living?: no Has anyone in your support network made you feel unsafe for any reason?: no Health Related Social Needs Health related social needs: inadequate housing(Z59.1)
--- NOTE | 2024-01-14 10:33 | PDOC.CMIN ---
Date of service: 01/14/24 Time of Service: 10:33 [facility] Direct[facility] Advance Directives: Do you have an Advance Directive: Y 07/21/21 15:59 AD On File at [facility]: Y 08/28/21 13:46 Date Asked 08/21/21 01/14/24 08:50 AD Date Reviewed 01/13/24 01/14/24 08:50 COLST On File at [facility] COLST Date Scanned Code Status Resuscitation Status Full Code Care Team Visit Care Team Role Provider Type Isaac Childers MD Primary Care Provider NON-[facility] STAFF PHYSICIAN InPatient Romaine Mack Other Providers OTHER Rodo Fine MD Emergency Provider [facility] STAFF PHYSICIAN Joe Lanier MD Admit Provider [facility] STAFF PHYSICIAN Attending Provider [facility] All Active Problems (Updated 01/13/24 @ 21:39 by Joe Lanier MD) Intractable back pain (Acute) Closed T4 fracture (Acute) Syncope (Chronic) Fecal soiling (Chronic) Hemorrhoids, external (Chronic) History of hematuria (Chronic) Seborrheic keratoses (Chronic) Atrial fibrillation (Chronic) Lumbar spinal stenosis (Chronic) Venous insufficiency (Chronic) Fatty infiltration of liver (Chronic) Encounter for screening colonoscopy (Acute) Diverticular disease of colon (Acute) Thrombosed external hemorrhoid (Acute) Internal hemorrhoids with complication (Acute) BPH loc w urin obs/LUTS (Acute) Hematuria (Acute) Renal mass (Acute) Tubulovillous adenoma (Acute ~10/2018) Tubular adenoma (Acute ~10/2018) Medical History (Updated 01/13/24 @ 21:39 by Joe Lanier MD) Polyp of colon Gabriels 5--19, villous/tubulovillous/sessile serrated. Dr Marisol Florence, [facility], repeat 3 years. 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 -BR 08/25/21: Pt. states this was cataract surgery not cornea-JW Adenomatous colon polyp Surgical History (Updated 08/29/21 @ 09:35 by Cristy Hadley RN) History of cataract surgery Bilateral History of vasectomy History of back surgery (x2) History of tonsillectomy History of knee replacement Left knee History of colonoscopy (~08/26/21) Family History Other Cancer Diabetes Social History (Updated 10/17/18 @ 12:35 by DAVIN Spence) Smoking/Tobacco Use Status: Former Tobacco Use Quit Date: 10/26/77 Smoking risk assessment performed?: Yes Alcohol Intake: current Alcohol Intake frequency: 3 or more drinks per day Alcohol type: hard liquor Drug use: Never Substance use type: does not use Housing: other Do you feel safe at home: Yes Do you feel safe in your relationship?: Yes SDOH(Care Management) Screening Will the Patient Participate in the Screening?: Yes Do you worry about having a steady place to live?: no Problems where you live: mold In the past 12 months, have you had to go without electric, gas, oil or water in your home?: no Have you or anyone in your house had to go without enough food to eat?: no Has lack of transportation kept you from medical appointments or from doing things needed for daily living?: no Has anyone in your support network made you feel unsafe for any reason?: no Health Related Social Needs Health related social needs: inadequate housing(Z59.1)
[2024-01-14 11:10] VITALS: BP 120/64; PULSE 94; RESP 14; TEMP 36.6; O2SAT 96
--- NOTE | 2024-01-14 13:45 | PT.INTREAT ---
PT Notes Visit Reasons: Intractable Pain Inpatient Physical Therapy Treatment Note [facility] Date: 01/14/24 SUBJECTIVE: Nakul states that he's been sitting up in the chair comfortably since our am session. He's agreeable to doing some more walking. OBJECTIVE: ? PAIN: 10/05 Therapeutic Activities (58824q1): Direct one-on-one instruction in dynamic activities to improve functional performance. ? BED MOBILITY/TRANSFERS? Sit-supine: cues and min A to LEs via sit-sidelying, log roll to supine ? Sit-stand: supervision? Stand-sit: supervision ? Bed-Chair: supervision with FWW ? Chair-bed: supervision with FWW Provided skilled cues and instruction on performance and technique throughout. ? GAIT? Assistive Device:FWW? Weight bearing: AT Assist: supervision ? Distance:? 100'x2 ? Deviation: Intermittent discomfort, with brief but sharp pain in midback during ambulation. Patient halts walking briefly when this occurs, then is able to return to ambulation. ? STAIRS:Manages therapeutic stairs with bilat rails, 2 steps, CGA only. ? ASSESSMENT:? Good independence with mobility, although with increasing pain, particularly with bed mobility. He is appropriate for transition back home once medically cleared, but will benefit from continued PT intervention during his hospitalization. PLAN: Continue PT intervention for transfer training. TREATMENT CODE/TIME: 14388h6 ([id number]) DISCHARGE RECOMMENDATION: Home with HH PT
--- NOTE | 2024-01-14 13:56 | PHA.REVIEW2 ---
Pharmacy Admission Review Admission Clinical Review Admission Pharmacy Review: Intractable back pain (Acute) hydrocodone Allergy (Verified 01/13/24 18:45) Psychosis methocarbamol Allergy (Unverified 01/13/24 18:45) I stop breathing tramadol Allergy (Verified 01/13/24 18:45) Unknown cephalexin Adverse Reaction (Intermediate, Unverified 01/13/24 18:45) Other (See Comment) NSAIDS (Non-Steroidal Anti-Inflamma Adverse Reaction (Unknown, Verified 01/13/24 18:45) Other (See Comment) Resuscitation Status Full Code Height 5 ft 9 in Weight 107.6 kg Comments Comments/Follow Ups: Pain level 10 at 0915 and 0 at 1110 today Pharmacy Admission Review Renal Dosing Renal Dosing: BUN 17 mg/dL (7-18) 01/13/24 18:46 Creatinine 0.8 mg/dL (0.70-1.30) 01/13/24 18:46 Medications needing adjustments: Reviewed (CrCl 71.21 mL/min) List of meds needing interventions: Current medications are okay Anticoagulation Anticoagulation: Hgb 15.3 g/dL (13.5-17.5) 01/13/24 18:46 Hct 44.4 % (40.0-50.0) 01/13/24 18:46 Plt Count 152 10^3/uL (130-400) 01/13/24 18:46 INR 1.2 (0.9-1.1) H 18 18:46 Creatinine 0.8 mg/dL (0.70-1.30) 01/13/24 18:46 DVT Prophylaxis: Reviewed Medications: Apixaban (5mg PO BID) Relevant Labs Relevant Labs: Sodium 141 mmol/L (136-145) 01/13/24 18:46 Potassium 3.9 mmol/L (3.5-5.1) 01/13/24 18:46 Chloride 106 mmol/L (98-107) 01/13/24 18:46 Magnesium 1.7 mg/dL (1.8-2.4) L 01/13/24 18:46 Electrolytes, C-Reactive P, ESR: Reviewed (no new labs for today) Cardiac Review Cardiac Review: Troponin I < 50 ng/L (< or =60) 01/13/24 21:16 Blood Pressure 120/64 1110 Blood Pressure 150/86 0801 Blood Pressure 147/95 0231 BP, HR, EF%: Reviewed (HR 94) QTc Review QTc: Reviewed (464 from 01/13/24) IV to PO Switch IV Medications: Reviewed Home Meds Home Med List reviewed: Intervened Relevent Home Meds Not ordered & why?: amoxicillin (for dental procedures), vitamin D3 and Ocuvite Ipratropium nasal spray put in as patients own order Current Meds Current Medication Order Review: Intervened Comments: Added patch removal order for lidocaine patch that was administered in ED last night Reached out to provider as H+P said to continue the lidocaine patch but no order was put in other than the 1 time dose in ED. Waiting to hear back Comments Comments/Follow Ups: Pain level 10 at 0915 and 0 at 1110 today
[2024-01-14 15:17] VITALS: BP 127/85; PULSE 87; RESP 14; TEMP 37; O2SAT 97
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
--- NOTE | 2024-01-14 17:51 | PGE_ITS ---
Date of Service Date of service: 01/14/24 Time of Service: 14:00 Assessment and Plan Assessment and plan (1) Intractable back pain: Status: Acute Assessment and plan: -fell after doing house work -normal neuro exam, non-displaced, stable fracture across T4-[address] Non-surgical management. -patient reportedly highly sensitive to opiates; experiences hallucinations. Also poor reactions to muscle relaxers. NSAID allergy. -lidocaine patch placed in ED, will continue -given 300mg gabapentin in ED, will continue TID -schedule APAP -PT consult (2) Syncope: Status: Chronic Assessment and plan: -likely orthostatic as occured after working for hours outside -EKG unremarkable, trop negative -s/p IVF in ED, not currently orthostatic -given age I think echo is prudent, was not able to get done today, plan for Wednesday or outpatient. Qualifiers: Syncope type: heat syncope Encounter type: initial encounter Qualified Code(s): T67.1XXA - Heat syncope, initial encounter (3) Atrial fibrillation: Status: Chronic Assessment and plan: -continue home eliquis and metoprolol -pulse has been high at times, likely related to pain, comes back to baseline 80s. Qualifiers: Atrial fibrillation type: unspecified chronic Qualified Code(s): I48.20 - Chronic atrial fibrillation, unspecified (4) Hypomagnesemia: Status: Acute Assessment and plan: low on admission, follow Subjective Subjective Patient reports: still having pain; denies nausea, vomiting or fever Interval history since last seen: He is in a lot of pain with movement in mid back. hurts to breath deeply, though he isn't really short of breath. His movement and sensation in hands/legs is intact. He has been able to get up to the chair with PT. APAP helps some Exam Narrative Exam Narrative: well appearing older gentleman laying in bed in no distress at rest but uncomfortable with slight movements. AOx4, heart irregularly irregular and tachycardic, lungs CTAB, abdomen soft, non-tender, non-distended, normal strength and sensation in bilateral upper extremities, decreased strength in bilateral legs but intact in feet, normal sensation. Brar in place, yellow urine. Objective Last Vital Signs Temp 37.0 C 01/14/24 15:17 Pulse 87 01/14/24 15:17 Resp 14 01/14/24 15:17 BP 127/85 01/14/24 15:17 Pulse Ox 97 01/14/24 15:17 Laboratory Results - last 24 hr 01/13/24 01/13/24 18:46 21:16 WBC 6.18 RBC 4.68 Hgb 15.3 Hct 44.4 MCV 95 MCH 32.7 MCHC 34.5 RDW 11.9 Plt Count 152 MPV 10.4 Immature Gran % 0.6 Neutrophils % 50.0 Lymphocytes % 36.7 Monocytes % 10.8 Eosinophils % 1.6 Basophils % 0.3 Nucleated RBC % 0.0 Absolute Neutrophils 3.08 Absolute Lymphocytes 2.27 Absolute Monocytes 0.67 Absolute Eosinophils 0.10 Absolute Basophils 0.02 PT 12.2 H INR 1.2 H APTT 25.4 Sodium 141 Potassium 3.9 Chloride 106 Carbon Dioxide 28.6 Anion Gap 6.4 BUN 17 Creatinine 0.8 Est GFR (CKD-EPI 2020) 89.47 Glucose 106 Calcium 8.4 L Magnesium 1.7 L Total Bilirubin 0.81 AST 30 ALT 41 Alkaline Phosphatase 54 Troponin I < 50 < 50 Total Protein 6.9 Albumin 3.4 PAWSS Have you Been Recently Intoxicated or Drunk Within the Last 30 days?: Yes Have you Ever Experienced Previous Episodes of Alcohol Withdrawal?: No Have you ever Experienced Withdrawal Seizures?: No Have you ever Experienced Delirium Tremens(DT)s?: No Have you ever undergone Alcohol Rehabilitation Treatment (i.e, inpt ot outpatient treatment programs)?: No Have you ever Experienced Blackouts?: Yes Have you ever Combined Alcohol with other Downers within the last 90 days?: No Have you ever Combined Alcohol with any other Substance of Abuse during the last 90 days?: No Positive Blood Alcohol level on Presentation? [PCS.BAL]: No Evidence of Increased Autonomic Activity (i.e. HR>120, tremor, sweating, agitation, nausea)?: No Result: 2 Time Spent with Patient Time Spent with Patient: 35-49 minutes Time was spent: preparing to see the patient(eg.review tests), obtaining and/or reviewing separately otained hiistory, ordering medications,tests, procedures, referring, communicating with other health vision care associate, indepentently interpreting results, counseling the patient and care coordination
[2024-01-14 20:20] VITALS: BP 124/84; PULSE 92; RESP 20; TEMP 36.8; O2SAT 96
[2024-01-14] MEDS: Metoprolol CR 25 MG TABCR PO (20:33)
[2024-01-14] MEDS: Atorvastatin 10 MG TAB PO (20:33)
[2024-01-14] MEDS: Acetaminophen 325 MG TAB 650 MG PO (22:53)
[2024-01-14] MEDS: Lidocaine 5% Patch 1 PATCH TP (22:53)
[2024-01-14 22:55] VITALS: BP 125/85; PULSE 92; RESP 18; TEMP 36.8; O2SAT 96
[2024-01-15] MEDS: Acetaminophen 325 MG TAB 650 MG PO ×6 (03:29→23:23)
[2024-01-15 03:30] VITALS: BP 115/85; PULSE 82; RESP 18; TEMP 36.6; O2SAT 97
[2024-01-15 07:12] LABS: Anion Gap 9.6 mmol/L (3-11); BUN 15 mg/dL (7-18); CO2 24.4 mmol/L (21.0-32.0); CREATININE 0.7 mg/dL (0.70-1.30); Calcium 8.3 mg/dL (8.5-10.1); Chloride 105 mmol/L (98-107); Estimated GFR 93.15 (mL/min/1.73m2); Glucose 125 mg/dL (74-106); Magnesium 1.5 mg/dL (1.8-2.4); Potassium 3.6 mmol/L (3.5-5.1); Sodium 139 mmol/L (136-145)
--- NOTE | 2024-01-15 07:23 | W.PC.ACHO ---
Registration Status: Primary Language: Preferred Language: ED Information & Data Chief Complaint Fall/Non TraumaCriteria 01/13/24 19:02 Chief Complaint Fall/Non TraumaCriteria 01/13/24 18:51 Triage Note outside today in lawn chair 01/13/24 18:39 and 1730, when to turn and walk away he fell, hit concrete, LOC/fell asleep. partner found him and he was snoring and woke easily. GCS 15, axox3. Pain minimal 1000 mg IV APAP. MId back pain, hx arthritis, back surg w/ rods in back. pt reports he did hit head. on blood thinners. declined c- collar. Medical / Surgical History (Last Reviewed 08/26/21 @ 08:32 by Estee Barnes) Polyp of colon Adenomatous polyps Cornea transplant recipient Adenomatous colon polyp (Last Updated 08/29/21 @ 09:35 by Cristy Hadley RN) History of cataract surgery History of vasectomy History of back surgery History of tonsillectomy History of knee replacement History of colonoscopy (~08/26/21) Most Recent Vital Signs Temperature 36.6 C 01/15/24 03:30 Temperature Source Temporal Artery Scan 01/15/24 03:30 Pulse 82 01/15/24 03:30 Pulse Rhythm Irregular 01/14/24 20:20 Pulse 74 01/13/24 22:31 Respiratory Rate 18 01/15/24 03:30 Respiratory Effort Normal, Non-Labored, Short of Breath 01/14/24 20:20 Respiratory Depth Normal 01/14/24 20:20 Respiratory Pattern Normal 01/14/24 20:20 Blood Pressure 115/85 01/15/24 03:30 Blood Pressure Mean 91 01/13/24 22:31 Pulse Oximetry 97 01/15/24 03:30 Oxygen Delivery Method Room Air 01/15/24 03:30 Oxygen Flow Rate 0 01/15/24 03:30 Pain Level 1 01/15/24 06:33 Allergies hydrocodone Allergy (Verified 01/13/24 18:45) Psychosis pt. states I go crazy methocarbamol Allergy (Unverified 01/13/24 18:45) I stop breathing tramadol Allergy (Verified 01/13/24 18:45) Unknown pt. states I don't remember what happens when I take that medication cephalexin Adverse Reaction (Intermediate, Unverified 01/13/24 18:45) Other (See Comment) Pt. states gut pain and vomiting NSAIDS (Non-Steroidal Anti-Inflamma Adverse Reaction (Unknown, Verified 01/13/24 18:45) Other (See Comment) Increased risk of bleeding while on Eliquis Precautions Isolation Standard precaution 01/13/24 19:02 Active Medications Generic Name Dose Route Start Last Admin Trade Name Freq PRN Reason Stop Dose Admin Acetaminophen 650 mg 01/14/24 23:00 01/15/24 06:30 Acetaminophen 325 Mg Tab PO 650 mg Q4H MARIANN Administration Apixaban 5 mg 01/14/24 08:30 01/14/24 20:32 Apixaban 5 Mg Tab PO 5 mg BID MARIANN Administration Atorvastatin Calcium 10 mg 01/14/24 20:00 01/14/24 20:33 Atorvastatin 10 Mg Tab PO 10 mg QPM MARIANN Administration Cyclosporine 0 ml 01/14/24 01:00 01/14/24 20:32 Cyclosporine 0.4 Ml Ophth Vial OP 1 drp 1000,2200 MARIANN Administration Gabapentin 300 mg 01/14/24 08:30 01/14/24 20:32 Gabapentin 300 Mg Cap PO 300 mg TID MARIANN Administration Lidocaine 1 patch 01/14/24 22:00 01/14/24 22:53 Lidocaine 5% Patch TP 1 patch Q24H MARIANN Administration Metoprolol Succinate 25 mg 01/14/24 20:00 01/14/24 20:33 Metoprolol Cr 25 Mg Tabcr PO 25 mg HS MARIANN Administration Multivitamins/Minerals/Vitamin C 1 tab 01/14/24 08:30 01/14/24 09:15 Beta-Carotene(A) W/C,E, & Minerals Tab PO 1 tab DAILY MARIANN Administration Pt's Own Ipratropium 1 each 01/14/24 20:00 01/14/24 20:47 [place] 0.03 % CICI Not Given [place],Non-Aerosol BID MARIANN Sodium Chloride 0 ml 01/13/24 23:43 01/14/24 20:31 Normal Saline Flush 10 Ml Syr IVP 10 ml PRN PRN Administration Sodium Chloride 0 ml 01/14/24 08:30 01/14/24 20:31 Normal Saline Flush 10 Ml Syr IVP 10 ml BID MARIANN Administration Tamsulosin HCl 0.4 mg 01/14/24 01:00 01/14/24 20:32 Tamsulosin 0.4 Mg Capcr PO 0.4 mg HS MARIANN Administration IV IV Catheter Type [Right Saline Lock Antecubital] IV Catheter Type [Left Saline Lock Antecubital] IV Catheter Gauge [Right 18 Antecubital] IV Catheter Gauge [Left 18 Antecubital] Diagnostics 01/15/24 Range/Units 06:17 Sodium 139 (136-145) mmol/L Potassium 3.6 (3.5-5.1) mmol/L Chloride 105 (98-107) mmol/L Carbon Dioxide 24.4 (21.0-32.0) mmol/L Anion Gap 9.6 (3-11) mmol/L BUN 15 (7-18) mg/dL Creatinine 0.7 (0.70-1.30) mg/dL Est GFR (CKD-EPI 2020) 93.15 (mL/min/1.73m2) Glucose 125 H (74-106) mg/dL Calcium 8.3 L (8.5-10.1) mg/dL Magnesium 1.5 L (1.8-2.4) mg/dL Intake and Output - 24 Hour Total 01/13/24 18:34 thru 01/15/24 06:18 Intake Total 1000 Output Total 1550 Balance -550 Weight 107.6 kg Intake: IV 1000 Output: Urine 1550 Other: Urine Color Yellow Urine Appearance Cloudy Comment Initial output hematuria due to difficult placement. Clearing to yuri. Voiding Methods Urinal Urinary Catheter Urinary Catheter Date of 01/14/24 Insertion [Uretheral (Brar)] Time of insertion [Uretheral ( 02:30 Brar)] Falls Risk Assessment History of Falls Admit Due to Fall 01/13/24 23:06 Contributing Factors Impairments 01/13/24 23:06 Ambulatory Aids Independent 01/13/24 23:06 Tubes/Lines None 01/13/24 23:06 Gait Evaluation W/any additional score 01/13/24 23:06 Cognition No cognitive impairment 01/13/24 23:06 Fall Total Score 48 01/13/24 23:06 Level of Risk Moderate Risk 01/13/24 23:06 Problems (Last Reviewed 08/26/21 @ 08:32 by Estee Barnes) Hypomagnesemia (Acute) Intractable back pain (Acute) Syncope (Chronic) Atrial fibrillation (Chronic) v v v v v v v v v Sending and/or Receiving Nurses: Please use comment section below to note any information pertinent to the patient hand-off not included above. Information / Comments: Report received from: Rios
[2024-01-15 08:33] VITALS: BP 124/88; PULSE 79; RESP 15; TEMP 35.9; O2SAT 92
[2024-01-15] MEDS: Apixaban 5 MG TAB PO ×2 (08:58→19:32)
[2024-01-15] MEDS: Beta-Carotene(A) w/C,E, & Minerals TAB 1 TAB PO (08:58)
[2024-01-15] MEDS: Gabapentin 300 MG CAP PO ×3 (08:58→19:33)
[2024-01-15] MEDS: Normal Saline Flush 10 ML SYR IVP ×3 (09:00→19:30)
[2024-01-15] MEDS: Patch Removal LIDOCAINE 1 EACH TP (09:00)
--- NOTE | 2024-01-15 09:22 | PT.INTREAT ---
PT Notes Visit Reasons: Intractable Pain Inpatient Physical Therapy Treatment Note [facility] Date: 01/15/24 PRECAUTIONS:Standard/Syncope/Fall ? Therapeutic Activities (30878m[1]): Direct one-on-one instruction in dynamic activities to improve functional performance. ? BED MOBILITY/TRANSFERS? Sit-stand: CGA/SBA? Stand-sit: CGA/SBA ? Provided skilled cues and instruction on performance and technique throughout. Gait Training ([id number][]): Direct one-on-one instruction and skilled instruction in: GAIT? Assistive Device: FWW? Weight bearing: Full Assist: CGA ? Distance:? 150ft? ASSESSMENT:? Pt did well with waling does require vc's for remembering not to bend or twist with movements. PLAN: Cont as per PT POC. TREATMENT CODE/TIME: 9:05-9:22 ( 17) TA DISCHARGE RECOMMENDATION: []
[2024-01-15 11:32] VITALS: BP 130/95; PULSE 87; RESP 16; TEMP 36.6; O2SAT 96
--- NOTE | 2024-01-15 12:37 | W.PM.PROGNOT ---
Date of Service Date of service: 01/15/24 Time of Service: 12:37 Assessment and Plan Assessment and plan (1) Intractable back pain: Status: Acute Assessment and plan: -fell after doing house/yard work all day on hot day -normal neuro exam, non-displaced, stable fracture across T4-[address] Non-surgical management indicated. -Clearly improving functional status since yesterday, but still limited. -patient reportedly highly sensitive to opiates; experiences hallucinations. Also poor reactions to methcarbamol. Avoids NSAIDs due to anticoagulation. Try baclofen. -lidocaine patch placed in ED, will continue -given 300mg gabapentin in ED, will continue TID -scheduled APAP -Continue working with PT (2) Syncope: Status: Chronic Assessment and plan: -likely orthostatic as occured after working for hours outside, no recurrence. -EKG unremarkable, trop negative -s/p IVF in ED, not currently orthostatic -given age and h/o mildly reduced LVEF related to atrial fibrillaton, I think echo is prudent, was not able to get done today, plan for Wednesday or outpatient. Qualifiers: Syncope type: heat syncope Encounter type: initial encounter Qualified Code(s): T67.1XXA - Heat syncope, initial encounter (3) Atrial fibrillation: Status: Chronic Assessment and plan: -continue home eliquis and metoprolol Qualifiers: Atrial fibrillation type: unspecified chronic Qualified Code(s): I48.20 - Chronic atrial fibrillation, unspecified (4) Hypomagnesemia: Status: Acute Assessment and plan: low on admission, again today, bolus again. Subjective Subjective Patient reports: denies nausea, vomiting or fever Interval history since last seen: Still in pain, but more able to move today. He feels like he needs to have BM, hasn't yet. Still hurts to breath deep, breathing hasn't been great for months since he was sick over winter. After I saw him, he had an episode of worse band-like mid thoracic pain. Exam Narrative Exam Narrative: well appearing older gentleman able to stand and transfer to [facility]. AOx4, heart irregularly irregular, lungs CTAB, abdomen soft, non-tender, non-distended, normal movement and sensation in bilateral extremities. No point tenderness along spine. Brar in place, yellow urine. Objective Last Vital Signs Temp 36.6 C 01/15/24 11:32 Pulse 87 01/15/24 11:32 Resp 16 01/15/24 11:32 BP 130/95 H 01/15/24 11:32 Pulse Ox 96 01/15/24 11:32 Laboratory Results - last 24 hr 01/15/24 06:17 Sodium 139 Potassium 3.6 Chloride 105 Carbon Dioxide 24.4 Anion Gap 9.6 BUN 15 Creatinine 0.7 Est GFR (CKD-EPI 2020) 93.15 Glucose 125 H Calcium 8.3 L Magnesium 1.5 L PAWSS Have you Been Recently Intoxicated or Drunk Within the Last 30 days?: Yes Have you Ever Experienced Previous Episodes of Alcohol Withdrawal?: No Have you ever Experienced Withdrawal Seizures?: No Have you ever Experienced Delirium Tremens(DT)s?: No Have you ever undergone Alcohol Rehabilitation Treatment (i.e, inpt ot outpatient treatment programs)?: No Have you ever Experienced Blackouts?: Yes Have you ever Combined Alcohol with other Downers within the last 90 days?: No Have you ever Combined Alcohol with any other Substance of Abuse during the last 90 days?: No Positive Blood Alcohol level on Presentation? [PCS.BAL]: No Evidence of Increased Autonomic Activity (i.e. HR>120, tremor, sweating, agitation, nausea)?: No Result: 2 Time Spent with Patient Time Spent with Patient: 35-49 minutes Time was spent: preparing to see the patient(eg.review tests), obtaining and/or reviewing separately otained hiistory, ordering medications,tests, procedures, referring, communicating with other health hospice patient care secretary, indepentently interpreting results, counseling the patient and care coordination
[2024-01-15] MEDS: Baclofen 10 MG TAB PO (13:12)
[2024-01-15] MEDS: Magnesium Oxide 400 MG TAB PO (14:57)
[2024-01-15] MEDS: MAGNESIUM SULFATE 2 GM/50 ML BAG IVINF (14:57)
[2024-01-15 19:20] VITALS: BP 151/93; PULSE 82; RESP 20; TEMP 36.8; O2SAT 99
[2024-01-15] MEDS: Tamsulosin 0.4 MG CAPCR PO (19:32)
[2024-01-15] MEDS: Metoprolol CR 25 MG TABCR PO (19:32)
[2024-01-15] MEDS: Docusate Sodium 100 MG CAP PO (19:32)
[2024-01-15] MEDS: Atorvastatin 10 MG TAB PO (19:33)
[2024-01-15] MEDS: Lidocaine 5% Patch 1 PATCH TP (21:02)
[2024-01-15 23:28] VITALS: BP 131/76; PULSE 90; RESP 18; TEMP 37; O2SAT 97
[2024-01-16 03:00] VITALS: BP 119/102; PULSE 79; RESP 16; TEMP 36.5; O2SAT 98
[2024-01-16] MEDS: Acetaminophen 325 MG TAB 650 MG PO ×3 (03:05→10:09)
[2024-01-16 07:35] VITALS: BP 127/87; PULSE 71; RESP 18; TEMP 36; O2SAT 96
[2024-01-16] MEDS: Beta-Carotene(A) w/C,E, & Minerals TAB 1 TAB PO (07:42)
[2024-01-16] MEDS: Gabapentin 300 MG CAP PO ×2 (07:42→13:31)
[2024-01-16] MEDS: Apixaban 5 MG TAB PO (07:42)
[2024-01-16] MEDS: Magnesium Oxide 400 MG TAB PO (07:42)
[2024-01-16] MEDS: Normal Saline Flush 10 ML SYR IVP (07:42)
[2024-01-16] MEDS: Patch Removal LIDOCAINE 1 EACH TP (10:10)
--- NOTE | 2024-01-16 10:18 | PT.INTREAT ---
PT Notes Visit Reasons: Intractable Pain Inpatient Physical Therapy Treatment Note [facility] Date: 01/16/24 PRECAUTIONS: Log rolling with bed mobility and avoid flexion and twisting of the spine. Therapeutic Activities ([id number][]): Direct one-on-one instruction in dynamic activities to improve functional performance. ? BED MOBILITY/TRANSFERS? Supine-sit: CGA? Sit-supine: CGA ? Sit-stand: SBA? Stand-sit: SBA ? Provided skilled cues and instruction on performance and technique throughout. Gait Training ([id number][]): Direct one-on-one instruction and skilled instruction in: ? GAIT? Assistive Device: FWW ? Weight bearing: Full Assist: SBA? Distance:? Approx 600ft ? Therapeutic Exercises (47169m[]): Direct one-on-one instruction in therapeutic exercises to develop strength, endurance, range of motion and flexibility. ? Exercises ? Practiced log rolling bedmobility and supine to sit and sit to supine x 2. ? ASSESSMENT:? Pt was able to tolerate more ambulation today and seemed to experience less discomfort with walking. More discomfort with transfers. PLAN: Cont as per PT POC. TREATMENT CODE/TIME: 9:55-10:18 (23) TA x2 DISCHARGE RECOMMENDATION: []
[2024-01-16 11:31] VITALS: BP 122/80; PULSE 72; RESP 17; TEMP 36.6; O2SAT 97
--- NOTE | 2024-01-16 14:21 | W.PM.DS.N ---
Date of service: 01/16/24 Time of Service: 14:24 DS: Diagnosis Discharge Diagnosis (1) Intractable back pain: Status: Acute (2) Syncope: Status: Chronic (3) Atrial fibrillation: Status: Chronic (4) Hypomagnesemia: Status: Acute (5) Closed T4 fracture: Status: Acute Discharge Plan Disposition Patient Disposition: Home W/Home Health Services Condition: Good Discharge Details Reason For Visit: Intractable Pain Admit Date/Time: 01/13/24 21:37 Admit Provider: Joe Lanier Attending Provider: Joe Lanier Primary Care Provider: Isaac Childers [facility] Course Hospital Course: 78 yo M with history of atrial fibrillation on apixaban, BPH, spinal stenosis s/p cervical and lumbar spinal fusions who presented with severe back pain after syncopal event 01/12 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 CTs were done of the head and cervical through lumbar spine, which showed non-displaced fracture of T4 and T5, but otherwise negative. Pain was severe and he was unable to walk or perform self care so he was admitted for intractable pain and syncope. He does not tolerate opioids or NSAIDs so management was limited to acetaminophen, gabapentin, baclofen, and lidocaine patches, all of which he tolerated. He worked well with PT and was walking unassisted by discharge. EKG and troponins were reassuring in assessment of his syncope. He never had chest pain. CT head negative as above. There were no events on telemetry monitoring. He remained stable in atrial fibrillation and was not orthostatic or otherwise lightheaded. Echocardiogram was ordered but was deferred for outpatient. Brar was placed on admission due to immobility, placement was difficult. It was removed prior to discharge and he was able to empty his bladder. Home Meds and New Rx's Prescriptions: New magnesium oxide 400 mg (241.3 mg magnesium) Tablet 400 mg PO DAILY Qty: 30 0RF gabapentin 300 mg Capsule 300 mg PO TID Qty: 90 0RF baclofen 5 mg tablet 5 mg PO TID PRN (Reason: muscle spasm) Qty: 30 0RF Continued ipratropium bromide 0.03 % spray,non-aerosol 2 spray CICI BID PRN atorvastatin 10 mg tablet 10 mg PO HS cyclosporine [Restasis] 0.05 % dropperette 1 drp ophthalmic (eye) Q12H tamsulosin [Flomax] 0.4 mg capsule 0.4 mg PO QHS Eliquis 5 mg tablet 5 mg PO BID amoxicillin 500 mg capsule 2,000 mg PO ONCE Patient Comments: for dental procedures cholecalciferol (vitamin D3) 1,000 UNITS tablet 1,000 unit PO DAILY Ocuvite with Lutein 1 EACH tablet 1 tab PO DAILY dibucaine 1 % ointment 1 applic [place] QID PRNQty: 56 2RF metoprolol succinate 25 mg tablet extended release 24 hr 25 mg PO DAILY Patient Comments: TAKE ONE TABLET BY MOUTH EVERY DAY Changed acetaminophen 650 mg tablet extended release 650 mg PO TID PRN (Reason: Back Pain) Qty: 100 1RF Discharge Instructions Instructions: Syncope (Fainting) (DC) Additional Instructions: You passed out after working all day in the heat. Your heart looked okay but we did order another heart test, called an echocardiogram, which you should have this week. We are sending long acting acetaminophen as well as two other pain medications: the nerve pain medication gabapentin and the muscle relaxor baclofen to take as long as you need them. You can get lidocaine patches [id number] as well. Your magnesium was low while you were here. We sent a prescription for a supplement, but this may be cheaper over the counter (250-500mg per day). You should follow up with your primary care physician after the echocardiogram in a week or two. Stand Alone Forms: Nursing Discharge Form Referrals: Isaac Childers MD [Primary Care Provider] - (Message left with office to call you Wednesday. If you do not hear from them Wednesday please call them and make a follow up appointment for 1-2 weeks. ) Activity:: Activity as Tolerated Equipment/Supplies:: No Equipment Needed Diet:: As Tolerated Discharge Orders Discharge Orders: Discharge Order (Routine); Ordered 01/16/24 Ordered By: Good Ford Other Ambulatory Orders: US echocardiogram (Routine) Timeframe: 3 Days Location: None Selected Ordered By: Good Ford DS: Summary Time Spent with Patient providing and/or coordinating discharge services: Greater than 30 minutes Status at Discharge Functional status at discharge: independent ambulation Overall status at discharge: patient is progressing back to baseline Mental Status: mental status grossly normal Speech and Movement: speech and movement normal Mood: congruent mood Affect: normal affect Quality:SDOH Health Related Social Needs: Health related social needs inadequate housing Exam Narrative Exam Narrative: well appearing older gentleman, pleasant, able to stand and walk. AOx4, heart irregularly irregular, lungs CTAB, abdomen soft, non-tender, non-distended, normal movement and sensation in bilateral extremities. No edema, legs not tender. Psych Mental Status: mental status grossly normal Speech and Movement: speech and movement normal Mood: congruent mood Affect: normal affect DS: Data Vitals/I&O Vitals and I&O: Vital Signs Temperature 36.6 C 01/16/24 11:31 Temperature Source Tympanic 01/16/24 11:31 Pulse 72 01/16/24 11:31 Pulse Rhythm Irregular 01/16/24 12:00 Pulse 74 01/13/24 22:31 Respiratory Rate 17 01/16/24 11:31 Respiratory Effort Non-Labored, Short of Breath 01/16/24 12:00 Respiratory Depth Normal 01/16/24 12:00 Respiratory Pattern Normal 01/16/24 12:00 Blood Pressure 122/80 01/16/24 11:31 Blood Pressure Mean 91 01/13/24 22:31 Pulse Oximetry 97 01/16/24 11:31 Oxygen Delivery Method Room Air 01/16/24 11:31 Oxygen Flow Rate 0 01/16/24 11:31 Pain Level 0 01/16/24 11:31 Intake & Output 01/15/24 01/16/24 01/16/24 23:59 11:59 23:59 Intake Total 770 / 770 Output Total 700 / 1100 1800 / 2200 400 / 2200 Balance 70 / -330 -1800 / -2200 -400 / -2200 Intake: IV 50 / 50 Oral 720 / 720 Output: Urine 700 / 1100 1800 / 2200 400 / 2200 Other: Urine Color [place] Yellow Yellow Urine Appearance Clear Cloudy Clear Comment This amount was taken from the catheter drainage bag after it was D/C, I couldn't chart it under the correct column as it was D/C and I can not longer access it. Voiding Methods Urinal PFSH All Active Problems (Updated 01/14/24 @ 18:55 by Good Ford) Hypomagnesemia (Acute) Intractable back pain (Acute) Closed T4 fracture (Acute) Syncope (Chronic) Tubular adenoma (Acute ~10/2018) Tubulovillous adenoma (Acute ~10/2018) Renal mass (Acute) Hematuria (Acute) BPH loc w urin obs/LUTS (Acute) Internal hemorrhoids with complication (Acute) Thrombosed external hemorrhoid (Acute) Diverticular disease of colon (Acute) Encounter for screening colonoscopy (Acute) Fatty infiltration of liver (Chronic) Venous insufficiency (Chronic) Lumbar spinal stenosis (Chronic) Atrial fibrillation (Chronic) Seborrheic keratoses (Chronic) History of hematuria (Chronic) Hemorrhoids, external (Chronic) Fecal soiling (Chronic) Medical History (Updated 01/14/24 @ 18:55 by Good Ford) Polyp of colon [place] 11-11-18, villous/tubulovillous/sessile serrated. Dr Marisol [place], [facility], repeat 3 years. 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 -BR 08/25/21: Pt. states this was cataract surgery not cornea-JW Adenomatous colon polyp Surgical History (Updated 08/29/21 @ 09:35 by Cristy Hadley RN) History of cataract surgery Bilateral History of vasectomy History of back surgery (x2) History of tonsillectomy History of knee replacement Left knee History of colonoscopy (~08/26/21) Family History Other Cancer Diabetes Social History (Updated 10/17/18 @ 12:35 by DAVIN Spence) Smoking/Tobacco Use Status: Former Tobacco Use Quit Date: 10/26/77 Smoking risk assessment performed?: Yes Alcohol Intake: current Alcohol Intake frequency: 3 or more drinks per day Alcohol type: hard liquor Drug use: Never Substance use type: does not use Housing: other Do you feel safe at home: Yes Do you feel safe in your relationship?: Yes Time Spent with Patient Time Spent with Patient: 45-69 minutes Time was spent: preparing to see the patient(eg.review tests), obtaining and/or reviewing separately otained hiistory, ordering medications,tests, procedures, referring, communicating with other health foster care therapist, indepentently interpreting results, counseling the patient and care coordination
--- NOTE | 2024-01-16 14:58 | PDOC.HHF2F ---
Home Health Referral Home Health Orders Clinical synopsis of why skilled professionals are needed: fall with thoracic spine fracture, mobility limited by severe pain Medical diagnosis necessitation home health referral: T4/5 spine fractures Physical Therapist: Check all that apply Increase strength & endurance for safe mobility at home: Ordered To design/establish home maintenance program: Ordered Home Bound Status Requires the aid of supportive device (check all that apply): Cane and Walker Describe why leaving home would require a considerable and taxing effort: Side effects from pain medication (sedation/drowsiness) and Requires frequent rest periods Encounter Date and Reason: I certify that a FTF encounter for this patient was performed on January 16, 2024 and that such encounter was related to the primary reason the patient requires home health services. The encounter was conducted in the following manner: By me as the certifying physician, [employer]OVAL SUPERVISOR, PA or By an inpatient physician, [employer] REMOVAL SUPERVISOR or PA during an inpatient stay who communicated findings to me, Certification And Authentication I certify that I composed the above information based on my clinical judgment relating to this patient's medical condition and, if applicable, clinical findings communicated to me by the NPP or inpatient physician who performed the FTF encounter. Name of Provider that will be monitoring home health services: Isaac Childers
--- NOTE | 2024-01-16 15:38 | CMDISCH_ITS ---
Date of service: 01/16/24 Time of Service: 15:38 LACE Index Scoring Tool Questions: Length of Stay (in days): 3 Was the patient admitted via the E.D.?: Yes Comorbidities: Liver or Renal Disease E.D. Visits: 1 Answers: Total Score: 12 Risk of Readmission: High Risk Care Management Discharge Plan Reason for Hospitalization: back pain Discharge Plan: Nakul will be discharged home with new home health services for PT. He will follow up with his PCP and plan of care and transport with family. Patient/Family Education Needs: Review discharge instructions, activity, limitations, follow up plan and discuss Ask Me Three Services Needed at Discharge: Home Health Care Services and Physical Therapy ([facility]) SDOH Health Related Social Needs: Health related social needs inadequate housing Health related social needs: inadequate housing(Z59.1) Health related social needs details: has mold at home
== END 2024-01-16 15:03 | disposition home health service (06) ==
LOC: ER 21:37 → MS 22:50
PROVIDERS: Family Medicine; Admitting Provider Family Medicine; Emergency Provider Emergency Medicine; PCP Family Medicine; Visit Provider Family Medicine
DX: S22.041A Stable burst fracture of fourth thoracic vertebra, initial encounter for closed fracture (principal); G89.11 Acute pain due to trauma; R55 Syncope and collapse; M54.89 Other dorsalgia; I48.20 Chronic atrial fibrillation, unspecified; E83.42 Hypomagnesemia; Z79.01 Long term (current) use of anticoagulants; W18.39XA Other fall on same level, initial encounter; M48.061 Spinal stenosis, lumbar region without neurogenic claudication; I87.8 Other specified disorders of veins; K76.0 Fatty (change of) liver, not elsewhere classified; K57.30 Diverticulosis of large intestine without perforation or abscess without bleeding; K64.8 Other hemorrhoids; N40.1 Benign prostatic hyperplasia with lower urinary tract symptoms
CPT/HCPCS: 00123; 36415; 80048; 80053; 93005; 96361; 96365; 96366; 97161; 97530; 99285; 70450; 72125; 72128; 72131; 83735; 84484; 85025; 85610; 85730; 93010; 99223; 99232; 99239; G0378; J3475; J3490

== ENCOUNTER → 2024-01-20 01:02 | Outpatient (CLI) | payer MEDICARE, OTHER, SELFPAY ==
--- NOTE | 2024-01-20 | DI.US_ITS ---
APPROVED REPORT EXAM: Comprehensive 2D, Doppler, and color-flow Echocardiogram Patient Location: Out-Patient Radar Repairer: Mary Hill RDCS (AE) Indications: Syncope Other Information Study Quality: Fair. Technically limited study due to body habitus, inability to position patient exa m done supine/sitting. Conclusion Normal left ventricular wall thickness and chamber size. Ejection fraction is 50 to 55%. There are no segmental wall motion abnormalities Mildly enlarged right ventricle Left atrium is mildly dilated. Right atrium is moderately dilated Aortic valve is mildly sclerotic and trileaflet with mild regurgitation Mild mitral annular calcification. Trace to mild mitral regurgitation Normal tricuspid valve, moderate regurgitation. Estimated right ventricular systolic pressure is 28 mmHg Ascending aorta measures 3.6 cm Wall motion Left Ventricle The left ventricle is normal size. The overall left ventricular systolic function appears normal. The re is normal left ventricular wall thickness. There is normal LV segmental wall motion. There is no v entricular septal defect visualized. LVEF is 50-55%. Right Ventricle Right ventricle is mild to moderately dilated. Right ventricular systolic function is grossly normal. Atria Left atrium is mildly dilated. Right atrium is moderately dilated. The interatrial septum is intact w ith no evidence for an atrial septal defect. Aortic Valve The Aortic valve is mildly sclerotic. Aortic valve is trileaflet. There is no aortic valvular stenosi s. mild aortic regurgitation. Mitral Valve Mild mitral annular calcification. No evidence of mitral valve stenosis. Trace to mild mitral regurgi tation. Tricuspid Valve The tricuspid valve is normal in structure. There is no tricuspid valve stenosis. Moderate tricuspid regurgitation. The RVSP is 27.7 mmHg. Pulmonic Valve The pulmonary valve is normal in structure. There is no pulmonic valvular stenosis. Trace pulmonic re gurgitation. Great Vessels The aortic root is normal in size. The ascending aorta is mildly dilated. Aortic arch is not well vis ualized. The IVC collapses <50% with inspiration. Pericardium There is no pericardial effusion. 2D Dimensions IVSD d PLAX 1.00 cm M: 0.6-1.2 Ao Root d 3.57 cm M: 3.1 - 3.7 LVPW d PLAX 1.00 cm M: 0.6 - 1.2 Ao Asc Diam d 3.60 cm M: 2.6 - 3.4 LVID d PLAX 5.02 cm M: 4.2 - 5.8 LVDs 3.78 cm M: 2.5 - 4.0 LV EF Teichholz 48.6 % FS 24.61 % LV EDV (Teich) 119.3 mL LV ESV (Teich) 61.3 mL Auto EF LV EDV A4C 109.4 mL LV EDV A2C 90.8 mL LV EDV BP 99.4 mL LV ESV A4C 48.9 mL LV ESV A2C 45.3 mL LV ESV BP 46.4 mL LVEF(%) A4C 55.3 % LVEF(%) A2C 50.1 % LVEF(%) BP 53.3 % LV SV A4C 60.5 ml LV SV A2C 45.5 ml LV SV BP 53.0 ml LV CO A4C 4.5 L/min LV CO A2C 2.9 L/min LV CO BP 3.7 L/min HR A4C 74.08 BPM HR A2C 63.83 BPM LV EDV Index (BP) RV Strain Global Peak Long. Strain A4C 8.27 Global Peak Long. Strain A4C FW 10.05 LA Volume LA Length A4C 6.2 cm LA Length A2C 5.5 cm LA Area A4C s 22.61 cm2 LA Area A2C s 23.28 cm2 LA Vol A4C A-L 70.56 mL LA Vol A2C A-L 83.90 mL LA Vol Biplane A-L 81.5 mL LA Vol/BSA A4C A-L LA Vol/BSA A2C A-L LA Vol/BSA BP A-L 36.7 mL/m2 LA Vol A4C MOD 63.8 mL LA Vol A2C MOD 79.3 mL LA Vol BP MOD 75.2 mL RA Volume RA Area A4C 27.3 cm2 RA ESV A4C (A-L) 110.4mL RA Vol/BSA A4C A-L RA Length A4C 5.7 cm RA ESV A4C (MOD) 104.8mL LV Diastology MV E' medial 0.118 (>0.07 m/s) MV E Vmax 0.98 (0.4-1.3 m/s) MV E/E' MED 8.30 (<14) MV E' lateral 0.129 (>0.1 m/s) MV E/E' LAT 7.61 (<14) MV E' Average 0.123 m/s MV E/E'(average) 7.94 Aortic Valve AoV Vmax 1.15 m/s LVOT Vmax 0.80 m/s AoV Peak Grad 5.3 mmHg LVOT Peak Grad 2.6 mmHg AoV Area (Vmax) 2.26 cm2 LVOT VTI 0.161 m AoV VTI 0.220 m LVOT Mean Grad 1.2 mmHg AoV Mean Trav. 0.81 m/s LVOT SV 52.63 mL AoV Mean Grad 3.1 mmHg LVOT Diam s 2.00 cm AoV Area (VTI) 2.39 cm2 AV Regurg Peak Gr. 5.33 mmHg Velocity Ratio 0.70 Mitral Valve MV DT 175 (160-240 msec) MV Vmax TIPS 0.70 m/s MV Mean Grad 0.7 (<2mmHg) MV VTI 0.229 m Pulmonary Valve PV Vmax 0.87 (0.5-1.5 m/s) RVOT Vmax 0.57 m/s PV Peak Grad 3.1 mmHg RVOT Peak Gr. 1.3 mmHg PV Mean Trav 0.61 m/s RVOT VTI 0.129 m PV Mean Grad 1.7 mmHg RVOT Mean Gr. 0.7 mmHg Tricuspid Valve RA Pressure 8.00 mmHg TR Vmax 2.22 m/s TV S' 0.14 m/s TR Peak Grad 19.7 mmHg RVSP (TR) 27.7 mmHg
--- OUTSIDE RECORDS SUMMARY | 2024-01-20 01:05 | XMS_ITS | Encounter Summary ---
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) Social History Tobacco Use Types Packs/Day Years Used Date Smoking Tobacco: Former Cigarettes 3 15 1 963 - 1978 Smokeless Tobacco: Never Comments:quit 41 years ago Alcohol Use Standard Drinks/Week Comments Not Asked 2 (1 standard drink = 0.6 oz pur e alcohol) PHQ-2 Answer Date Recorded PHQ-2 Score 0 01/28/2020 Interpersonal Safety Answer Date Record ed Physically Hurt Never 01/28/2020 Verbally Threaten Not on file 01/28/2020 Sex and Gender Information Value Date Recorded Sex Assigned at Not on file Gender Identity Male 06/01/2019 13:40 EST Sexual Orientation Not on file documented as of this encounter Functional Status Functional Status Response Date of Assess ment Are you deaf or do you have serious difficulty h earing? No 01/19/2019 Are you blind or do you have serious difficulty seeing, even when wearing glasses? Yes 06/02/2019 Do you have serious difficul ty walking or climbing stairs? (5 years old or older) No 01/19/2019 Do you have difficulty dress ing or bathing? (5 years old or older) No 01/19/2019 Because of a physical, menta l, or emotional condition, does this person have difficulty doing errands alone such as visiting a doctor's office or shopping? Yes 07/01/2020 Cognitive Status Response Date of Assessm ent Because of a physical, menta l, or emotional condition, do you have serious difficulty concentrating, remembering, or making decisions? (5 years old or older) No 01/19/2019 documented as of this encounter Progress Notes * Caleb Ahumada MD - 11/05/2020 1000 EDT Telephone note Generally doing well. Neck and back discomfort (not pain) after intense physical exertion, but no significant pain. Doing lots of work outside now that the weather is better. No radicular complaints.No worsening unsteadiness. MRI cervical spine reviewed. Canal widely patent. Appears to have robust fusion. Patient generally very happy. Will follow-up on as-needed basis going forward. The concept of ???Telemedicine?? has been described to the patient.? Patient has been informed of the anticipated benefits and possible risks.? Patient understands the information provided regardingtelemedicine, has had the opportunity to ask questions about this information, and all questions have been answered to patient???s satisfaction. Patient consents for the use of telemedicine in his/her medical care and authorizes the transmission of any relevant medical information to providers and their staff involved in patient???s medical or mental health care. This visit was conducted by telephone. I spent a total of 10 minutes in discussion with the patientas described in the progress note. documented in this encounter Plan of Treatment Not on file documented as of this encounter Visit Diagnoses Diagnosis Cervical spondylosis with myelopathy and radiculopathy- Primary documented in this encounter Care Teams Education Spec Relationship Specialty Start Date End Date Garcia Gonzales MD [address] [place] [address] PCP - General 09/03/09 documented as of this encounter
--- OUTSIDE RECORDS SUMMARY | 2024-01-20 01:05 | XMS_ITS | Clinical Summary ---
Author Organization [facility] Address [address] [place] [address] Care Team Providers Care Transition Assistant Name Role Phone Garcia Gonzales MD Primary Care Provider [phone] Allergies Active Allergy Reactions Criticality Noted Date Comments Cyclobenzaprine 02/09/2019 Pt does not remember-wild MARQUES? Methocarbamol Anaphylaxis,Other (See Comments) High 04/11/2019 stopped breathing Nsaids (Non-Steroidal Anti-Inflammatory Drug) GI upset 11/22/2018 Other - See Comments 11/22/2018 opoids feels like I'm flying around the room, hallucinations. Oxycodone 02/09/2019 Tramadol Low 01/18/2019 Hydrocodone-Acetaminophen Low 01/18/2019 Medications Medication Sig Dispensed Refills Start Date End Date Status atorvastatin (LIPITOR) 10 mg tablet Take 10 mg by mouth at bedtime as needed. Active sennosides (SENEXON ORAL) Take by mouth 2 times daily. Active acetaminophen (TYLENOL ARTHRITIS PAIN) 650 mg CR tablet Take 650 mg by mouth as needed for Pain. Active metoprolol XL (TOPROL-XL) 25 mg tablet Take 25 mg by mouth at bedtime. Active calcium carbonate (TUMS) 200 mg calcium (500 mg) tablet,chewable Take 1 Tab by mouth every 4 hours as needed for Heartburn. 01/20/2019 Active Additional Information Patient not taking.Reported on 05/31/2019 docusate sodium (COLACE) 100 mg capsule Take 1 Cap by mouth 2 times daily. 01/20/2019 Active Additional Information Patient not taking.Reported on 05/31/2019 Multivitamins with Minerals tablet tablet Take 1 Tab by mouth daily. Active ergocalciferol, vitamin D2, (VITAMIN D ORAL) Take by mouth daily. Active vit C/vit E ac/lut/copper/zinc (PRESERVISION LUTEIN ORAL) Take by mouth daily. Active HYDROmorphone (DILAUDID) 4 mg tablet Take 1 Tab by mouth every 4 hours as needed for Pain (Discomfort). Daily Max: 24 mg 30 Tab 06/04/2019 Active Additional Information Patient not taking.Reported on 07/01/2020 magnesium hydroxide (MILK OF MAGNESIA) 400 mg/5 mL suspension Take 30 mL by mouth at bedtime. 06/04/2019 Active ondansetron (ZOFRAN-ODT) 4 mg disintegrating tablet Take 1 Tab by mouth every 4 hours as needed for Nausea. 10 Tab 06/04/2019 Active polyethylene glycol 3350 (MIRALAX) 17 gram packet Take 17 g by mouth daily. 06/04/2019 Active Active Problems Problem Noted Date Diagnosed Date Spinal stenosis, lumbar region with neurogenic c laudication 06/04/2019 Cervical spondylosis with myelopathy 01/18/2019 Cervical spondylosis with radiculopathy 01/19/20 19 Surgical History Surgery Date Site/Laterality Comments JOINT REPLACEMENT 06/28/2015 - 06/27/2016 Left spinal-no problems(was told needed a long needle for spinal) NECK SURGERY 12/26/2018 - 01/25/2019 cevical spondylosis with myelopathy CATARACT REMOVAL WITH IMPLANT 06/28/2014 - 06/27/2015 Bilateral [place] ARTHRODESIS POSTERIOR/PSTLAT TQ 1NTRSPC LUMBAR 05/31/2019 Spine Lumbar/N/A Spine Lumbar/N/A Spine Lumbar/N/A Spine Lumbar/N/A Spine Lumbar/N/A lumbar laminectomy L1-2 through L4-5, L3-5 instrumented fusion with the use or possible use of allograft performed by Caleb Ahumada MD at [facility] [place] Medical devices from this surgery are in the Medical Devices section. [place] ARTHRODESIS PST/PSTLAT TQ 1NTRSPC EA ADDL NTRSPC 05/31/2019 Spine Lumbar/N/A Spine Lumbar/N/A Spine Lumbar/N/A Spine Lumbar/N/A Spine Lumbar/N/A . performed by Caleb Ahumada MD at [facility] [place] Medical devices from this surgery are in the Medical Devices section. [place] LAMINECTOMY W/O FFD > 2 VERT SEG LUMBAR 05/31/2019 Spine Lumbar/N/A Spine Lumbar/N/A Spine Lumbar/N/A Spine Lumbar/N/A Spine Lumbar/N/A . performed by Caleb Ahumada MD at [facility] [place] Medical devices from this surgery are in the Medical Devices section. [place] POSTERIOR SEGMENTAL INSTRUMENTATION 3-6 VRT SEG 05/31/2019 Spine Lumbar/N/A Spine Lumbar/N/A Spine Lumbar/N/A Spine Lumbar/N/A Spine Lumbar/N/A . performed by Caleb Ahumada MD at [facility] [place] Medical devices from this surgery are in the Medical Devices section. [place] ALLOGRAFT FOR SPINE SURGERY ONLY STRUCTURAL 05/31/2019 Spine Lumbar/N/A Spine Lumbar/N/A Spine Lumbar/N/A Spine Lumbar/N/A Spine Lumbar/N/A . performed by Caleb Ahumada MD at [facility] [place] Medical devices from this surgery are in the Medical Devices section. Medical History Medical History Date Comments Spinal stenosis Hyperlipidemia A-fib ([facility] dx in 2014, cont rolled well Asthma due to seasonal allergies Open wound of armpit region with tendon involvement Nausea & vomiting Anesthesia complication 12/2018 Pt state s he took methocarbamal after surgery and kept having periods of apneia per his . Family History Medical History Relation Comments Cancer Mother Diabetes Sister Mental Illness Sister Relation Status Comments Mother mets to bone Sister Social History Tobacco Use Types Packs/Day Years [...] 13:40 EST Sexual Orientation Not on file Obstetrics History Last Filed Vital Signs Vital Sign Reading Time Taken Comments Blood Pressure 114/64 06/06/2019 1007 EST Pulse 83 06/06/2019 0003 EST Temperature 36.6 ??C (97.9 ??F) 06/06/2019 1007 EST Respiratory Rate 16 06/06/2019 1007 EST Oxygen Saturation 96% 06/06/2019 1007 EST Inhaled Oxygen Concentration - - Weight 103.9 kg (229 lb) 07/01/2020 1444 EST Height 174 cm (5' 8.5) 07/01/2020 1444 EST Body Mass Index 34.31 07/01/2020 1444 EST Plan of Treatment Health Maintenance Due Date Last Done Comments RSV Immunization ( o r 60+ Years) (1 - 1-dose 60+ series) 2003 Fall Risk Screening 2008 COVID-19 Vaccine (2022- season) 2023 Medical Devices Implanted Type 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 Designer Writer Device Identifier Shelf Expiration Date Model / Serial / Lot Screw Spinal P/Ax Solid Andres 7x60mm Ft Matrix [id number] - S0 - [id number] Implanted:Qty : 2 on 05/31/2019 by Caleb Ahumada MD at [facility] Screw Implant [employer] .76 0 / 0 / Screw Spinal P/Ax Solid Andres 8x60mm Ft Matrix [id number] - S0 - [id number] Implanted:Qty : 2 on 05/31/2019 by Caleb Ahumada MD at [facility] Screw Implant [employer] .86 0 / 0 / Screw Spinal P/Ax Solid Ti 5.5mm Matrix [id number] - S0 - [id number] Implanted:Qty : 6 on 05/31/2019 by Caleb Ahumada MD at [facility] Screw Implant [employer] 632.00 1 / 0 / Screw Spinal P/Ax Solid Ti 8x55mm Ft Matrix [id number] - S0 - [id number] Implanted:Qty : 1 on 05/31/2019 by Caleb Ahumada MD at [facility] Screw Implant [employer] 639.85 5 / 0 / Screw Spinal P/Ax Solid Ti 7x50mm Ft Matrix [id number] - S0 - [id number] Implanted:Qty : 1 on 05/31/2019 by Caleb Ahumada MD at [facility] Screw Implant [employer] 639.75 0 / 0 / End Cap Spinal Deformity 5.5mm Matrix [id number] - S0 - [id number] Implanted:Qty : 6 on 05/31/2019 by Caleb Ahumada MD at [facility] Spinal Implant [employer] 632.00 0 / 0 / Yosef Spinal Postr Cerv Ti Prebnt 5.5x65mm Matrix [id number] - S0 - [id number] Implanted:Qty : 1 on 05/31/2019 by Caleb Ahumada MD at [facility] Spinal Implant [employer] 636.06 5 / 0 / Yosef Spinal Lumbr Ti Prebnt 5.5x70mm Matrix [id number] - S0 - [id number] Implanted:Qty : 1 on 05/31/2019 by Caleb Ahumada MD at [facility] Spinal Implant N/A: Back [employer] 636.07 0 / 0 / Advance Directives For more information, please contact: [phone] Documents on File Type Date 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 Not Discusse d * Full Code Date Activated Date Inactivated Comments 05/31/2019 6:35 05/31/2019 6:35 Question Answer Comments Reason for decision includes: Full code consistent with overall plan of care Who participated in the discussion? Not Discusse d * Full Code Date Activated Date Inactivated Comments 01/18/2019 14:08 01/20/2019 18:46 Question Answer Comments Reason for decision includes: Full code consistent with overall plan of care Who participated in the discussion? Not Discusse d * Full Code Date Activated Date Inactivated Comments 01/18/2019 6:21 01/18/2019 14:08 Question Answer Comments Reason for decision includes: Written do cumentation of patient's wishes (Advance Directive/Agent) Who participated in the discussion? Not Discusse d Care Teams Transition Assistant Relationship Specialty Start Date End Date Garcia Gonzales MD [address] [place] [address] PCP - General 09/03/09
--- OUTSIDE RECORDS SUMMARY | 2024-01-20 01:05 | XMS_ITS | Encounter Summary ---
Author Organization [facility] Address [address] [place] [address] Care Team Providers Care Mandarin Tutor Name Role Phone Garcia Gonzales MD Primary Care Provider [phone] Encounter Details Date Type Department Care Team (Latest Contact Info) Description 07/01/2020 Travel Social History Tobacco Use Types Packs/Day Years Used Date Smoking Tobacco: Former Cigarettes 3 15 1 [id number] Smokeless Tobacco: Never Comments:quit 41 years ago [...] 13:40 EST Sexual Orientation Not on file COVID-19 Exposure Response Date Recorded In the last month, have you been in contact with someone who was confirmed or suspected to have Coronavirus / COVID-19? No / Unsure 07/01/2020 14:04 EST documented as of this encounter Functional Status [...] No 01/19/2019 documented as of this encounter Plan of Treatment Not on file documented as of this encounter Visit Diagnoses Not on filedocumented in this encounter Care Teams Mandarin Tutor Relationship Specialty Start Date End Date Garcia Gonzales MD [address] [place] [address] PCP - General 09/03/09 documented as of this encounter
--- OUTSIDE RECORDS SUMMARY | 2024-01-20 01:05 | XMS_ITS | Encounter Summary ---
Author Organization [facility] Address [address] [place] [address] Care Team Providers Care Mental Retardation Aide Name Role Phone Garcia Gonzales MD Primary Care Provider [phone] Reason for Visit * Reason Comments Follow-up L3-5 fusion Encounter Details Date Type Department Care Team (Late st Contact Info) Description 07/01/2020 14:40 EST Office Visit [facility] Neurosurgery - [address] [id number] Caleb Ahumada MD [address] [place] [address], [address] [place] [id number] Cervical arthritis with myelopathy (Primary Dx) Social History Tobacco Use Types [...] 14:04 EST documented as of this encounter Last Filed Vital Signs Vital Sign Reading Time Taken Comments Blood Pressure - - Pulse - - Temperature - - Respiratory Rate - - Oxygen Saturation - - Inhaled Oxygen Concentration - - Weight 103.9 kg (229 lb) 07/01/2020 1444 EST Height 174 cm (5' 8.5) 07/01/2020 1444 EST Body Mass Index 34.31 07/01/2020 1444 EST documented in this encounter Functional Status Functional Status Response [...] Progress Notes * Caleb Ahumada MD - 07/01/2020 1440 EST Patient returns for follow-up. He is 1 year status post L1-L5 laminectomy with L3-5 instrumented fusion in 1-1/2-year status post C7-T2 laminectomy and C4-T2 instrumented fusion. He reports that generally he has done well. He does have a low back ache that has been present for the last couple of weeks since he started shoveling snow. However this is not severe and generally improves with a little bit of rest. He takes 2 Tylenol a day. His current Oswestry disability index is 14 out of 45 and his peak VAS pain scores are 1/2/0/3. On direct questioning he does admit to some gait instability and loss of dexterity which is relatively mild and severity but has been present for about a year. On physical examination there is a Susan sign on the right side. Patellar reflexes are within normal limits. 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 There is subjective nondermatomal decrease in sensation in both hands. Cervical x-rays done today demonstrate stable appearance of the hardware with no evidence of abnormal motion above the construct. Lumbar x-rays demonstrate stable appearance of the hardware with no evidence of loosening. Impression: Generally speaking, Mr. Sam is doing very well. His backache is mild and I think very much within the range of normal for the lumbar surgery that he had. His dexterity and balance complaints probably merit further imaging to rule out adjacent level disease in the cervical spine. I will order a cervical MRI. We will arrange a telephone visit to go over the results afterwards. If nothing further needs to be done, he will follow-up on an as- needed basis thereafter. I spent a total of 12 minutes on the date of this encounter meeting with the patient and reviewing documentation/coordinating care as described in the above note. documented in this encounter Plan of Treatment Not on file documented as of this encounter Visit Diagnoses Diagnosis Cervical arthritis with myelopathy- Primary documented in this encounter Care Teams Mental Retardation Aide Relationship Specialty Start Date End Date Garcia Gonzales MD [address] [place] [address] PCP - General 09/03/09 documented as of this encounter
--- OUTSIDE RECORDS SUMMARY | 2024-01-20 01:05 | XMS_ITS | Encounter Summary ---
Author Organization [facility] Address [address] [place] [address] Care Team Providers Care Saw Runner Name Role Phone Garcia Gonzales MD Primary Care Provider [phone] Reason for Referral * Follow Up (3 - 10 Business Days) - Receiving Office to Obtain Authorization Specialty Diagnoses / Procedures Referred By Contac t Referred To Contact General Internal Medicine Diagnoses Hyponatremia Martín Gayle MD [address] [place] [address] Garcia Gonzales MD [address] [place] [address] Referral ID Status Reason Start Date Expiration Date Visits Requested Visits Authorized [id number] Receiving Office to Obtain Authorization Continuity of Care 06/06/20 19 1 1 Question Answer Reason for Request: F/U Hyponatremia Scheduling Comments (optional ? describe specific scheduling needs if applicable): 7 days Expected Discharge Date (Inpatient Only): 06/06/2019 * Consult (Routine) - Closed Specialty Diagnoses / Procedures Referred By Contac t Referred To Contact Neurosurgery Diagnoses Neurogenic jamilahication Alicia Marroquin MD [address] [place] [address] Caleb Ahumada MD [address] [facility], [address] [place] [address] Referral ID Status Reason Start Date Expiration Date V isits Requested Visits Authorized [id number] Closed Specialty Services Required 06/04/2019 1 1 Question Answer Reason for Request: lumbar fusion 4 wks * Referral (Routine/Next Available) - New Request Specialty Diagnoses / Procedures Referred By Lucia garcia Referred To Contact Diagnoses Neurogenic claudication Alicia Marroquin MD [address] [place] [id number] [facility] [address] [address] Referral ID Status Reason Start Date Expiration Date Visits Requested Visits Authorized [id number] New Request Specialty Services Required 06/04/2019 1 1 Question Answer I certify that this patient is under my care and that I, or another Medicare allowed practitioner (DO TYLOR, LAW) working with me, had a [id number] encounter with this patient on this date: 06/04/2019 I further certify that the [id number] encounter was in whole or in part related to the reason the patient needs home health care. Yes The discharge summary or progress note will provide further details that support the need for the home health services and the plan of care. Yes Enter the allowed practitioner (DO TYLOR, LAW) who will provide oversight of this patient's home heatlh care needs and plan of care Garcia Gonzales The patient? s homebound status is related to the following diagnoses, illness or condition (describe): sp lumbar fusion The patient has a condition due to an illness or injury that restricts the ability to leave home except with: The assistance or supervision of another person Leaving the home is medically contraindicated due to (reason 1): Post surgical restrictions or conditions Leaving home requires a considerable and taxing effort with mobility limited by the following (criteria 1): Post surgical or post procedure restrictions limit ambulation and activity Nursing skilled care requested: Physical Therapy, Occupational therapy Physical therapy is needed for: Evaluation, Post Surgical, Strength Training/Exercise Program, Safety, Gait/Mobility Assessment and Training, Equipment Recommendations Occupational Therapy for: Assess Need for Adaptive Equipment, ADL Training, Bathroom Equipment Eval Reason for Visit * Auth/Cert Specialty Diagnoses / Procedures Referred By Contac t Referred To Contact Diagnoses Spinal stenosis, lumbar region with neurogenic claudication Procedures ME ARTHRODESIS POSTERIOR/POSTEROLATERAL LUMBAR ME SPINE FUSN,POST TECH,EA ADDNL SGMT ME LAMINECTOMY,>2 SGMT,LUMBAR ME POSTERIOR SEGMENTAL INSTRUMENTATION 3-6 VRT SEG ME ALLOGRAFT FOR SPINE SURGERY ONLY STRUCTURAL lumbar laminectomy L1-2 through L4-5, L3-5 instrumented fusion with the use or possible use of allograft . . . . Referral ID Status Reason Start Date Expiration Date Visits Re quested Visits Authorized [id number] 1 1 Encounter Details Date Type Department Care Team (Late st Contact Info) Description 05/31/2019 6:03 EST - 06/06/2019 10:42 EST Hospital Encounter [facility] [address] [place] [id number] Caleb Ahumada MD [address] [place] [address], [address] [place] [address] Neurogenic claudication (Primary Dx); Hyponatremia Discharge Disposition: Nursing Facility (Skilled) Social History Tobacco Use Types Packs/Day Years Used Date Smoking Tobacco: Former Cigarettes 3 15 1 [phone] Smokeless Tobacco: Never Comments:quit 41 years ago Alcohol Use Standard Drinks/Week Comments Not Asked 2 (1 standard drink = 0.6 oz pur e alcohol) Sex and Gender Information Value Date Recorded Sex Assigned at Not on file Gender Identity Male 06/01/2019 13:40 EST Sexual Orientation Not on file documented as of this encounter Last Filed Vital Signs Vital Sign Reading Time Taken Comments Blood Pressure 114/64 06/06/2019 1007 EST Pulse 83 06/06/2019 0003 EST Temperature 36.6 ??C (97.9 ??F) 06/06/2019 1007 EST Respiratory Rate 16 06/06/2019 1007 EST Oxygen Saturation 96% 06/06/2019 1007 EST Inhaled Oxygen Concentration - - Weight 103.9 kg (229 lb) 06/02/2019 0700 EST per 05/08/19 Height 174 cm (5' 8.5) 06/02/2019 0700 EST Body Mass Index 34.31 06/02/2019 0700 EST documented in this encounter Functional Status [...] visiting a doctor's office or shopping? Yes 02/09/2019 Cognitive Status Response Date of Assessm ent Because of a physical, menta l, or emotional condition, do you have serious difficulty concentrating, remembering, or making decisions? (5 years old or older) No 01/19/2019 documented as of this encounter Discharge Summaries * Martín Gayle MD - 06/03/2019 0802 EST Neurosurgery Discharge Summary Primary Care Provider: Garcia Gonzales Attending Physician: Caleb Ahumada MD Admit Date: 05/31/2019 Discharge Date: 06/06/2019 Disposition: Subacute Rehab Problems and Procedures Admitting Diagnosis: No primary diagnosis found. Discharge Diagnosis: Neurogenic claudication Additional Problems Managed in the Hospital There are no hospital problems to display for this patient. Principal Procedure: L1-L5 posterior decompression, L3-L5 instrumented fusion, repair of durotomy with nurolon and tisseal??(Dr. Ahumada, 05/31/19) Hospital Course 74M w PMH significant for Afib (on Eliquis), C4-T2 decompression and fusion (Dr. Ahumada, 12/2018) who presented to clinic with improvement in upper extremity symptoms but persistent low back pain and symptoms of neurogenic claudication in bilateral legs. Imaging demonstrates central stenosis L1-L5 with moderate degenerative scoliosis and grade 1 anterolisthesis L4-5, along with foraminal stenosis at L3-4 and L4-5. Presents DOSA for decompression of L1-L5 and fusion of L3-L5. Remained flat overnight after surgery given concern for partial thickness dural tear. No positional headache or other indication of CSF leak. Postoperatively with incisional pain but no leg pain or weakness. Upright XR sa tisfactory. At time of discharge demonstrates continued difficulty mobilizing, prompting discharge to subacute rehab. Patient noted to be hyponatremic during admission. Treated with fluid restriction. He will be discharged on a 1.5L/day fluid restriction. Recommend follow up by PCP. Per advisement after last surgery, will hold Eliquis until 3 weeks after surgery, on 06/21/19. During the hospital stay, the patient was evaluated by physical and occupational therapy. They recommended subacute rehab.. The patient's incision was closed with nylon, which requires removal on 06/14/19. Allergies and Immunizations Allergies Allergen Reactions ??? Methocarbamol Anaphylaxis and Other (See Comments) stopped breathing ??? Cyclobenzaprine Pt does not remember-wild MARQUES? Nsaids (Non-Steroidal Anti-Inflammatory Drug) GI upset ??? Other - See Comments opoids feels like I'm flying around the room, hallucinations. ??? Oxycodone ??? Tramadol ??? Vicodin [Hydrocodone-Acetaminophen] There is no immunization history on file for this patient. Transition of Care Plans Condition at Discharge Good Prognosis: good Assessment at Discharge Vital signs: Patient Vitals for the past 12 hrs: BP Resp Temp SpO2 O2 Device 06/03/19 0512 105/70 16 36.7 ??C (98 ??F) 97 % None 06/03/19 0100 129/79 17 37.1 ??C (98.7 ??F) 97 % None 06/02/19 2037 126/76 17 37.2 ??C (98.9 ??F) 99 % None Spine: Brace: No Anticoagulation: No Test results still pending from this admission None Relevant Studies During Admission none Imaging Required No Last Lab Results at Discharge BUN: Lab Results Component Value Date BUN 15 06/03/2019 Creatinine: Lab Results Component Value Date CREATININE 0.64 (L) 06/03/2019 CBC: Lab Results Component Value Date WBC 10.99 (H) 06/03/2019 RBC 2.98 (L) 06/03/2019 HGB 8.8 (L) 06/03/2019 HCT 26.2 (L) 06/03/2019 MCV 88 06/03/2019 MCH 29.5 06/03/2019 MCHC 33.6 06/03/2019 PLT 149 06/03/2019 DIFFTYPE Auto 06/03/2019 Electrolytes: Lab Results Component Value Date NA 128 (L) 06/03/2019 K 3.6 06/03/2019 CL 95 (L) 06/03/2019 CO2 30 06/03/2019 HGB: Lab Results Component Value Date HGB 8.8 (L) 06/03/2019 Discharge Follow Up Upcoming Appointments Jun 26, 2019 11:00 EST (Arrive by 10:00) Post Op Visit with Caleb Ahumada MD [facility] (--) [address] [facility] [address] ALICIA MARROQUIN MD 06/03/2019 8:02 documented in this encounter Discharge Instructions * Discharge Instr - AVS First Page* Alicia Marroquin MD - 06/04/2019 8:34 EST Do not take Eliquis until 3 weeks after surgery (06/22/19) documented in this encounter Medications at Time of Discharge Medication Sig Dispensed Refills Start Date End Date acetaminophen (TYLENOL ARTHRITIS PAIN) 650 mg CR tablet Take 650 mg by mouth as needed for Pain. atorvastatin (LIPITOR) 10 mg tablet Take 10 mg by mouth at bedtime as needed. calcium carbonate (TUMS) 200 mg calcium (500 mg) tablet,chewable Take 1 Tab by mouth every 4 hours as needed for Heartburn. 01/20/2019 docusate sodium (COLACE) 100 mg capsule Take 1 Cap by mouth 2 times daily. 01/20/2019 ergocalciferol, vitamin D2, (VITAMIN D ORAL) Take by mouth daily. HYDROmorphone (DILAUDID) 4 mg tablet Take 1 Tab by mouth every 4 hours as needed for Pain (Discomfort). Daily Max: 24 mg 30 Tab 06/04/2019 magnesium hydroxide (MILK OF MAGNESIA) 400 mg/5 mL suspension Take 30 mL by mouth at bedtime. 06/04/2019 metoprolol XL (TOPROL-XL) 25 mg tablet Take 25 mg by mouth at bedtime. Multivitamins with Minerals tablet tablet Take 1 Tab by mouth daily. ondansetron (ZOFRAN-ODT) 4 mg disintegrating tablet Take 1 Tab by mouth every 4 hours as needed for Nausea. 10 Tab 06/04/2019 polyethylene glycol 3350 (MIRALAX) 17 gram packet Take 17 g by mouth daily. 06/04/2019 sennosides (SENEXON ORAL) Take by mouth 2 times daily. vit C/vit E ac/lut/copper/zinc (PRESERVISION LUTEIN ORAL) Take by mouth daily. documented as of this encounter Ordered Prescriptions Prescription Sig Dispensed Refills Start Date End Da te polyethylene glycol 3350 (MIRALAX) 17 gram packet Take 17 g by mouth daily. 06/04/2019 ondansetron (ZOFRAN-ODT) 4 mg disintegrating tablet Take 1 Tab by mouth every 4 hours as needed for Nausea. 10 Tab 06/04/2019 magnesium hydroxide (MILK OF MAGNESIA) 400 mg/5 mL suspension Take 30 mL by mouth at bedtime. 06/04/2019 HYDROmorphone (DILAUDID) 4 mg tablet Take 1 Tab by mouth every 4 hours as needed for Pain (Discomfort). Daily Max: 24 mg 30 Tab 06/04/2019 documented in this encounter Discharge Disposition Disposition Code Departure Means Destination Nursing Facility (Skilled) S killed Nursing documented in this encounter Progress Notes * Ora Gomez, PT - 06/06/2019 1042 EST [facility] Rehabilitation Therapy Acute Therapy [facility] Physical Therapy Discontinue/Discharge Note Date of Service: 06/06/2019 Mobility Precautions Activity: Activity as tolerated Spinal Precautions: Spine A Surgery/No Brace SUBJECTIVE: Other Subjective Statements: N/A OBJECTIVE: PatientProfile: Patient is a 74 y.o. male admitted on 05/31/2019 secondary to Spinal stenosis, lumbar region with neurogenic claudication [M48.062] Spinal stenosis of lumbar region with neurogenic claudication [M48.062] The patient lives at [address] [place] [id number] Interventions Completed Today: Interventions Included: No interventions rendered today since the patient has been or will be discharged from the hospital Patient has been seen in physical therapy since 06/02/2019. In this reporting period 06/02/2019 to 06/06/2019 the patient has been seen by a physical therapist. Please refer to the physical therapy notes for specifics on the patient's functional status and treatment sessions. Relevant objective findings: CARDIOPULMONARY: Vitals stable at rest and during activity with PT INTEGUMENTARY/ANTHROPOMETRIC CHARACTERISTICS: surgical incision with gauze and tegaderm dressing; intact MUSCLE PERFORMANCE: At least greater than 3/5 as noted during AROM and functional activity. Not able to perform sit to stand without UE support demonstrates functional leg weakness BALANCE, MOBILITY, AND GAIT: Therapeutic Activity as of 06/05/2019 Bed Mobility ?? Supine to sit/Sit to supine towards patient's right side with supervisiom assist with bed flat, no rails; pt able to perform with significant effort and increased duration of time ? Sit to stand from flat bed at normal height with minimal assist and verbal cues for hand placement and sequencing; Pt is not able to stand unless he has both hands pushing up on Rw lower handles Stand to sit from RW to bed with supervision assist and verbal cues for hand placement and sequencing ?? Transfer bed to chair; pt reports chair is not comfortable; requests to return to bed at conclusionof session ? Ambulation ?? With rolling walker assistive device and close supervision assist for 110 feet x 2. Pt declined to ambulate longer distance, stating his right anterior hip was becoming significantly more painful; Pt demonstrates flexed trunk an moderate reliance on UE Support on RW; With cues able to stand moreerect. No shortness of breath, loss of balance or dizziness noted Stairs Pt ascended 2, six inch steps and descended 3, four inch steps with bilateral rails; noted significantly increased right anterior hip pain; did not attempt additional stairs Extensive discussion with patient and his via phone. Patient's is able to provide supervision assist and help with household management. She is not able to provide any physical assist for pt. Pt needs to be physically independent when he returns home. pt in bed with call anand in hand at conclusion of session. ASSESSMENT: Physical therapy services in this setting have been discontinued secondary to: Patient has been discharged from the hospital Physical Therapy Diagnosis: Mr. Sam demonstrates impaired activity tolerance and decreased functional activity with impaired strength. Physical Therapy Prognosis: Patient was at a modified independent to independent level with mobility in his home and community prior to surgery. He continues to requires assistive device and intermittent physical assist for all mobility; limited by pain and decreased strength and activity tolerance. Mr. Sam continues to experience increased right anterior hip pain which is exacerbated with ambulation, stairs and sit to stand. His is able to provide supervision, but no physical assistance. He intermittently requires up to moderate assist to stand from standard bed height surface. Given his slow rate of progress in this setting and need for intermittent physical assist, recommend subacute rehab. Discussed with pt and his , who agree. Anticipate he will progress well at subacuterehab Short-Term Goals: na Long-Term Goals: Flight Operation Coordinator Goal Time Frame: 2 days to 2 weeks; Mr. Sam will demonstrate the following; Goal: independence supine <->sit with flat bed and no rails Status: Progressing, Discontinue Goal: modified independence to independent ambulation 200-300 feet with equal reciprocal steps and erect trunk posture Status: Progressing, Discontinue Goal: independent home exercise program Status: Progressing, Discontinue Goal: modified independence wtih negotiating 3 stairs with one rail Status: Progressing, Discontinue Goal: vitals remain stable with above Status: Met Plan: Necessity: Discontinue physical therapy services Recommended Discharge Destination Recommended Discharge Destination: Subacute rehabilitation Recommended Discharge Services Therapy Specific Services: Physical therapy Therapy Specific Services Comments: in Subacute rehab facility Pager: [phone] ORA GOMEZ, PT 06/06/2019 12:25 * Dayami Frazier - 06/06/2019 1040 EST I met with the patient to review medicare IM and wish him well. He was sitting up brushing teeth and getting cleaned up. He feels ready to d/c to rehab today and is very pleased to get into the rehabof his choice. Pt discharging to [facility] via w/c van at [address] Kaila Toussaint will follow. report will be phoned to him @ [phone]. RN report will be phoned the facility rehab unit. Dayami Frazier RN/[facility] #[id number]. * Krystyna Terrazas, OT - 06/06/2019 0819 EST [facility] Rehabilitation Therapy Acute Therapies [facility] - Occupational Therapy Discontinue/Discharge Note Date of Service: 06/06/2019 Precautions: Activity as tolerated and Spine precautions post surgery SUBJECTIVE: N/A OBJECTIVE: Interventions completed today: No intervention today secondary to pt DC from hospital. Intervention included: Self-Care/Home Management Patient/Family Education: Topic: Benefits of activity Compensatory strategies Role of OT Energy conservation D/C planning Adaptive equipment Safety awareness Impact of precautions on ADLs Learner: patient Method: verbal and demonstration Barriers to Learning: none noted Outcome: verbalized understanding and returned demonstration Patient has been seen in occupational therapy since 06/04/2019. In this reporting period 06/04/2019 to 06/16/2019 the patient has been seen by an Occupational therapist Please refer to the occupational therapy notes for specifics on the patient's functional status andtreatment sessions. Relevant Objective Findings: Body Functions and Performance Skills: Mental Functions: Arousal/Alertness: Appropriate responses to stimuli Orientation Level: Oriented to person, Oriented to situation, Oriented to place Orientation Comments: Did not inquire re: date/time Following Commands: Able to follow two-step commands consistently. Attention: No issues noted. Memory: Pt able to recall 2/3 post surgery precautions independently and 3/3 with verbal prompting.During initial evaluation, pt continously asked about nursing staff coming to assist with toiletingdespite OT telling him that the call anand had been cancelled however pt able to recall and follow precautions throughout OT session. Insight: Intact Insight Comments: Pt recognized that he was unable to return home given his current impairments. Safety Awareness: Demonstrates decreased safety awareness ?? Sensory Functions: Touch: Intact C2-T1. Pt reported having LE tingling prior to surgery that has since resolved. Vision: Pt wears bifocals at baseline. Pt reported having cataract surgery on both eyes. Pt denied any acute changes in vision including blurry vision and diplopia. Hearing: Grossly intact to conversational tones. ?? Neuro musculoskeletal and Movement Related Functions: Range of motion: B UE AROM grossly WNL. Strength: B UE grossly 4-5/5. ?? Skin and Related Structure Functions: Skin Integrity Integrity: Non-Intact(Incision site.) Location: Back Areas of Occupation and Performance Skills: Feeding: Anticipate independence. Grooming: Independent using wet wipes to clean hands performed seated EOB after set-up A to retrieve wipes. Upper Body Dressing: Pt able to don hospital gown like a jacket with mod A. Pt able to thread each UE without physical assist but required min-mod A overall for pulling gown posteriorly around trunk.Pt reported difficulty donning jackets at baseline given limited shoulder ROM bilaterally. Lower Body Dressing: Pt able to doff/don production laborer socks using dressing stick and sock aid performed seated on couch. Pt required physical assistance to adjust socks bilaterally. Pt able to partially doff/don compression socks but was ultimately max A to don/doff compression socks. Toileting: Pt able to manage hospital gown in front independently in order to allow for voiding while seated on toilet. Pt max A to perform toileting hygiene in standing with use of rolling walker. Toilet Transfer: Min contact A to/from raised toilet (commode frame with rails over toilet) with use of rolling walker. Functional Mobility: Supine>sit: Close supervision to log-roll to L side (simulating home set-up) with additional effort noted and without use of bed features after multiple verbal reminders for use of log-roll technique. Additional verbal cues provided during transition for sequencing of movements. Sit>supine: Supervision to log-roll with carry-over noted from verbal reminders during supine>sit for log-roll technique. Sit<>stand: Min contact A to/from hospital bed 1x, to/from couch 1x and to/from raised toilet(commode frame with rails over toilet) 1x with use of rolling walker and with repeated verbal cues for hand placement during transfers. Pt required multiple verbal cues for hand placement to avoid pulling on walker with both hands in effort to maximize safety with transfers with carry-over noted during final sit>stand transfer from raised toilet. Mobility: Close supervision with use of rolling walker in room, bed>couch>bathroom>bed. ASSESSMENT: Mr. Sam was found to be appropriate for skilled acute OT services after undergoing L1-L5 posterior decompression, L3-L5 instrumented fusion, repair of durotomy with nurolon and tisseal??performed on 05/31/2019. Prior to hospitalization, pt was modified independent with BADLs and independent with IADLs. Pt presented below his functional baseline with impairments including decreased activity tolerance, impaired balance, increased pain, impaired recall and decreased safety awarenessimpacting his ability to perform BADLs and IADLs independently. Focus of therapy sessions was on educating pt re: post surgery precautions, impact of post surgery precautions on BADLs and IADLs, compensatory strategies to promote greater ease and independence with BADLs, adaptive equipment to promote greater ease and independence with BADLs, pursed lip breathing and energy conservation strategies. Initially, I was hopeful that pt would progress with OT to DC home safely with his 's 18/01 supervision/assit and HH services including HH OT. Unfortunately pt did not progress to the point wherept and his felt comfortable with him returning home with her support as pt was still requiringsupervision-mod A for BADLs, functional transfers and functional mobility. Recommendation was thus made for REANNA stay to further address impairments and promote independence in BADLs, IADLs and functional mobility/transfers prior to returning home. Pt ultimately DC[facility] to [facility]. GOALS: Discontinue all goals secondary to pt DC from hospital. Short Term Goals: N/A ?? Group Home Goals: Flight Operation Coordinator Goal Time Frame Flight Operation Coordinator Goal Time Frame: 1-2 weeks Group Home Goal 1 Goal: Will perform functional transfers to/from varying surfaces modified I to perform BADL or other functional activities. Flight Operation Coordinator Goal 2 Goal: Will perform LB dressing/self-care modified I. Group Home Goal 3 Goal: Will perform UB dressing/self-care modified I. Group Home Goal 4 Goal: Will perform toileting tasks min contact A. Flight Operation Coordinator Goal 5 Goal: Will recall and follow post surgery precautions without verbal reminders during OT sessions. Group Home Goal 6 Goal: Will verbalize understanding of any OT recommendations. PLAN: Discontinue occupational therapy at [facility] [facility] acute care. Recommended Discharge Destination: Sub-acute rehabilitation Recommended Discharge Services: Occupational therapy at rehabilitation facility Recommended Discharge Equipment: Shower chair (if pt cannot find one he has), Claims Examiner (if pt cannot find one he has), Toilet aid (Toilet tongs provided by OT), Grab bars next to toilet Further equipment recommendations to be made by next care provider Pager: [phone] GERRI LAINEZ, 06/06/2019, 8:20 Krystyna Terrazas OTR/L, Pager: [phone] * Murray Gomes MD - 06/06/2019 2224 EST Neurosurgery Daily Progress Note Problems/ Low back pain Neurogenic claudication Prior C4 to T2 posterior instrumented fusion with decompression Procedures/ L1-L5 posterior decompression, L3-L5 instrumented fusion, repair of durotomy with nurolon and tisseal (Dr. Ahumada, 05/31/19) 24 Hr/ Some nausea and emesis overnight, improved following BM x2 PT/OT recommending RE[facility]NA Subjective/ Persistent incisional soreness. Objective/ BP (!) 151/98 (BP Cuff Location: Left arm, BP Patient Position: Semi fowlers) Pulse 83 Temp 36.6 ??C (97.9 ??F) (Tympanic) Resp 16 Ht 174 cm (68.5) Wt (!) 103.9 kg (229 lb) Comment: per 05/08/19 SpO2 100% BMI 34.31 kg/m?? AO3 Extraocular movements intact Face symmetric No drift Drywall Taper 5/5 bl Elbow extension and flexion 5/5 bl Hip flexion 5/5 bl Knee flexion and extension 5/5 bl Dorsi and plantar flexion 5/5 bl Sensation grossly intact x 4 Incision c/d/i Assessment/ 74M w PMH significant for C4-T2 decompression and fusion (Dr. Ahumada, 12/2018) who presented to clinic with improvement in upper extremity symptoms but persistent low back pain and symptoms of neurogenic claudication in bilateral legs. Imaging demonstrates central stenosis L1-L5 with moderate degenerative scoliosis and grade 1 anterolisthesis L4-5, along with foraminal stenosis at L3- 4 and L4-5. Presents DOSA for decompression of L1-L5 and fusion of L3-L5. Dispo planning. Plan/ Pain control Q4h neuro checks, vitals, I&O Regular diet PT/OT - priority for dispo SpO2 >92% SBP goal 100-160 SCD/ROSA ELENA/Lovenox for DVT ppx Activity as tolerated Dispo planning Murray Gomes MD Neurosurgery resident 06/06/2019 7:54 Page [phone] with questions * Blayne Tirado - 06/05/2019 1652 EST Spiritual Care Note Re: Nakul Sam : 1945, AGE: 74 y[id number] Nakul Sam who is listed as None has received a visit from the Spiritual Care Department on 06/05/2019. Need/Assessment: . Pt is in bed covered self with blanket. . Pt came in on weekend with lower back pain. . Pt had surgery yesterday which he said was successful. . Pt said progress is significant and may be discharged to rehab tomorrow . Pt is in good spirit . Skidder Operator provided listening presence.support Plan of Action: No Follow up necessary - Needs met Continued Family Support Continued Support from Skidder Operator following patient Make a Referral to: Continued Support with Volunteer Visits Connect with Community Supports Ask for a consult from: Other: Visit Initiated by: Referral Time: End of Life / Comfort Care / Hospice Urgent Request - Time: 4 Level of Visit Services Provided: Anointing of Sick Prayer Communion Relaxation through music Assist Advanced Directives Integrative therapies Assist Decision Making Gibbs and Prayer at dying Exploration of Ethical issues Present at time of Family Support Other Chaplain May ARROYO 131 Phone [phone] Spiritual Care is available 24 hours a day. Chaplains are available 24 hours a day. For routine consults please call and leave a message with the Spiritual Care Office ([phone]) and patients will be seen within 24 hours. For all emergent consults page the Orthodox or Interfaith on-call Skidder Operator through [facility] ([phone]). * Dayami Frazier - 06/05/2019 1523 EST Bed offer received from [facility] in [place], pt.'s first choice for RE[facility]NA. Facility notes that patient's last charted BM was 06/03. They ask that pt be medicated if necessaryto produce bm prior to his discharge tomorrow. Dr. Kaila Toussaint will follow. report should be phoned to him at [phone]. RN report to be phoned to the facility @ [phone]. NS team informed, COLST and PASRR in patient's chart and will be signed by team. Pt to go via W/C van. He will be picked up in the main lobby at 11am Wednesday 06/06. Dayami Frazier RN/CCM #[id number]. * Dayami Frazier - 06/05/2019 1355 EST I met with the patient and his was at his bedside. Pt states that he wants the one at the [facility]. Neither could remember the name of the REANNA. Pt agreeable to be listed at all three [facility]'s in [facility] And will decide based on bed offers. I have listed. I will follow up with patient when bed offers are received. Plan for d/c to [facility] as soon as tomorrow. Dayami Frazier RN/CCM #[id number]. * Ora Gomez, PT - 06/05/2019 1240 EST [facility] Rehabilitation Therapy Acute Therapies [facility] Physical Therapy Encounter Note Date of Service: 06/05/2019 Subjective/Objective Subjective Pt reports persistent right >left anterior hip pain which worsens with ambulating >80 feet and with stairs. Objective Intervention completed today: Time: 11:20 Total treatment time: 30 minutes. Timed code treatment minutes: 30 Vital signs have been stable with interventions and were not monitored. Therapeutic Activity Bed Mobility ?? Supine to sit/Sit to supine towards patient's right side with supervisiom assist with bed flat, no rails; pt able to perform with significant effort and increased duration of time Sit to stand from flat bed at normal height with minimal assist and verbal cues for hand placement and sequencing; Pt is not able to stand unless he has both hands pushing up on Rw lower handles Stand to sit from RW to bed with supervision assist and verbal cues for hand placement and sequencing Transfer bed to chair; pt reports chair is not comfortable; requests to return to bed at conclusionof session Ambulation ?? With rolling walker assistive device and close supervision assist for 110 feet x 2. Pt declined to ambulate longer distance, stating his right anterior hip was becoming significantly more painful; Pt demonstrates flexed trunk an moderate reliance on UE Support on RW; With cues able to stand moreerect. No shortness of breath, loss of balance or dizziness noted Stairs Pt ascended 2, six inch steps and descended 3, four inch steps with bilateral rails; noted significantly increased right anterior hip pain; did not attempt additional stairs Extensive discussion with patient and his via phone. Patient's is able to provide supervision assist and help with household management. She is not able to provide any physical assist for pt. Pt needs to be physically independent when he returns home. pt in bed with call anand in hand at conclusion of session. Patient/Family Education: Topic: Activity pacing/Energy conservation Assistive device/technique Bed mobility Discharge planning Exercise Gait Home program Positioning Precautions/protocol Role of therapy Safety Stairs Transfers Learner: patient and family ( via phone conversation) Method: verbal and demonstration Barriers to Learning: none noted Outcome: needs practice and verbalized understanding Team Communication: Pt status discussed with Nursing. Discharge planning discussion with Case Management Assessment/Plan Assessment Mr. Sam continues to experience increased right anterior hip pain which is exacerbated with ambulation, stairs and sit to stand. His is able to provide supervision, but no physical assistance. He intermittently requires up to moderate assist to stand from standard bed height surface. Givenhis slow rate of progress in this setting and need for intermittent physical assist, recommend subacute rehab. Discussed with pt and his , who agree. Plan Continue per plan of care Recommended Discharge Destination: Sub-acute rehabilitation Recommended Discharge Services: Physical therapy at rehabilitation facility Recommended Equipment Needs: To be determined by next care provider Other recommendations: No other consults recommended at this time Pager: [phone] ORA GOMEZ, PT 06/05/2019 12:40 * Dayami Frazier - 06/05/2019 1200 EST Per PT today, patient in need of REANNA. He and are agreeable. I will see and list. Dayami Frazier RN/[facility] #[id number]. * Krystyna Terrazas, OT - 06/05/2019 1112 EST [facility] Rehabilitation Therapy Acute Therapies [facility] - Occupational Therapy Encounter Note Date of Service: 06/05/2019 Subjective/Objective Subjective I am as good as I'm going to be. Pt reported pain in hips, particularly R hip, which he rated as 5-6/10 at beginning of OT session and 4-5/10 at end of OT session. RN aware and provided scheduled pain medication. Objective Time: 1020 Total treatment time: 45 minutes. Timed code treatment minutes: 45 minutes Interventions included: Self-Care/Home Management x 45 minutes Pt in supine upon OT arrival reporting stomach discomfort however amenable to OT. Focus of session was on further addressing BADLs and functional mobility/transfers providing interventions prn. - Precautions: Pt able to recall 2/3 post surgery precautions at beginning of session and 3/3 post surgery precautions after verbal prompting. OT verbally reviewed post surgery precautions with pt. Pt verbalized understanding. - UB Dressing: Pt reported limited shoulder AROM bilaterally at baseline, R shoulder more limited than L shoulder. Verbally instructed and demonstrated compensatory UB dressing technique to minimize twisting when donning/doffing jackets or button-down shirts. Verbal instruction also provided for threading R UE first given more limited ROM. Pt able to don hospital gown like a jacket with mod A. Ptable to thread each UE without physical assist but required min-mod A overall for pulling gown posteriorly around trunk. Pt reported difficulty donning jackets at baseline given limited shoulder ROM bilaterally. Pt initially reported having assistance at all times with this however later reported having only intermittent assistance with this. Pt claimed his could provide any assistance needed. Pt able to doff hospital gown independently seated EOB. - Pt with varying SpO2 levels with activity seated EOB with monitor reading anywhere from 84-100% O2 saturation on room air. Intermittent poor reading noted on monitor however pt did report feeling SOB on a couple occasions. Verbally instructed and demonstrated pursed lip breathing as pt indicatingshortness of breath once verbally prompted. - Toileting/Toilet Transfer: Min contact A to/from raised toilet (commode frame with rails over toilet) with use of rolling walker. Pt able to manage hospital gown in front independently in order to allow for voiding while seated on toilet. Pt had toilet tongs previously provided by OT in bathroom however reported he had not trialed using them yet and that nursing staff have been assisting him. OT encouraged trialing use when next needing to perform hygiene. - Lower Body Dressing: Pt reported ability to recall how to use long handle adaptive equipment to perform LB dressing tasks as addressed during previous OT session and reported feeling comfortable using equipment. Pt declined practicing LB dressing tasks using equipment today despite encouragement. - Functional Mobility: Supine>sit: Close supervision to log-roll to L side (simulating home set-up) with additional effort noted and without use of bed features after multiple verbal reminders for use of log-roll technique. Additional verbal cues provided during transition for sequencing of movements. Sit>supine: Supervision to log-roll with carry-over noted from verbal reminders during supine>sit for log-roll technique. Sit<>stand: Min contact A to/from hospital bed 1x, to/from couch 1x and to/from raised toilet(commode frame with rails over toilet) 1x with use of rolling walker and with repeated verbal cues for hand placement during transfers. Pt required multiple verbal cues for hand placement to avoid pulling on walker with both hands in effort to maximize safety with transfers with carry-over noted during final sit>stand transfer from raised toilet. Mobility: Close supervision with use of rolling walker in room, bed>couch>bathroom>bed. - DC Planning: Continued DC re: DC planning. Pt stated his will be able to physically assist with all aspects of basic self-care if needed. Pt reported believing this is the best he will be and that he was managing prior to hospitalization. Discussed recommendation for 24/7 assist/supervision upon initial DC if pt is returning home vs recommendation for RE[facility]. Deferred to PT session today tofurther assess functional mobility/transfers. Vital signs: Pre: BP 123/70 and SpO2 levels ranging from 84-97% with intermittent poor reading from monitor in the beginning of the session. During: SpO2 levels were monitored and remained in the high 80's-90's with intermittent poor reading from monitor throughout. Post: SpO2 levels 98%. Patient/Family Education: Topic: Benefits of activity Compensatory strategies D/C planning Safety awareness Impact of precautions on ADLs Learner: patient Method: verbal and demonstration Barriers to Learning: none noted Outcome: verbalized understanding and returned demonstration Team Communication: RN in to administer medications upon OT arrival. Assessment/Plan Assessment Mr. Leyva continues to be appropriate for skilled acute OT services. Pt continues to present belowhis functional baseline with impairments including decreased activity tolerance, impaired balance, increased pain, impaired recall of precautions, decreased insight re: impairments and their impact on his overall functioning and ability to return home and decreased safety awareness impacting his ability to perform BADLs and IADLs independently. Pt was able to recall the majority of his precautions and follow them throughout the session. Pt continues to require min contact A-close supervision for functional mobility/transfers and physical assist for UB dressing. Pt reports that his significantother will be able to provide physical assistance with all BADLs and IADLs however she was not present to confirm this during session. Ms. Leyva has previously expressed desire to return directly home from hospital. Given his performance today, high pain level and slow progression, I do not feel Mr. Leyva is safe to return home today. I anticipate he may be able to return home with his and services including HH OT but only if his is able to confirm ability to provide 24/7 assist.If not then REANNA is recommended to further address impairments and promote independence in BADLs, IADLs and functional mobility/transfers. Plan Continue per plan of care Recommended Discharge Destination: Home with 24/7 assist and services vs. sub-acute rehabilitation if level of assist needed cannotbe provided- Confirmation needed from re: level of assist she can provide Recommended Discharge Services: See assessment above Recommended Discharge Equipment: Shower chair (if pt cannot find one he has), Claims Examiner (if pt cannot find one he has), Toilet aid (Toilet tongs provided by OT), Grab bars next to toilet Pager: [phone] GERRI LAINEZ, 06/05/2019, 11:12 Krystyna Terrazas OTR/L, Pager: [phone] * Martín Gayle MD - 06/05/2019 0375 EST Neurosurgery Daily Progress Note Problems/ Low back pain Neurogenic claudication Prior C4 to T2 posterior instrumented fusion with decompression Procedures/ L1-L5 posterior decompression, L3-L5 instrumented fusion, repair of durotomy with nurolon and tisseal (Dr. Ahumada, 05/31/19) 24 Hr/ Ambulating PT recommends continued in-house therapy JENNIFER overnight Subjective/ Incisional pain controlled. Having BMs. Objective/ BP (!) 142/79 (BP Cuff Location: Left arm, BP Patient Position: Semi fowlers) Pulse 90 Temp 36.3 ??C (97.3 ??F) (Tympanic) Resp 12 Ht 174 cm (68.5) Wt (!) 103.9 kg (229 lb) Comment: per 05/08/19 SpO2 98% BMI 34.31 kg/m?? AO3 Extraocular movements intact Face symmetric No drift Drywall Taper 5/5 bl Elbow extension and flexion 5/5 bl Hip flexion 5/5 bl Knee flexion and extension 5/5 bl Dorsi and plantar flexion 5/5 bl Sensation grossly intact x 4 Incision c/d/i Assessment/ 74M w PMH significant for C4-T2 decompression and fusion (Dr. Ahumada, 12/2018) who presented to clinic with improvement in upper extremity symptoms but persistent low back pain and symptoms of neurogenic claudication in bilateral legs. Imaging demonstrates central stenosis L1-L5 with moderate degenerative scoliosis and grade 1 anterolisthesis L4-5, along with foraminal stenosis at L3- 4 and L4-5. Presents DOSA for decompression of L1-L5 and fusion of L3-L5. Postoperative incision pain improved. Continue to work with therapies today. Plan/ Pain control Q4h neuro checks, vitals, I&O Regular diet PT/OT - priority for dispo SpO2 >92% SBP goal 100-160 SCD/ROSA ELENA/Lovenox for DVT ppx Activity as tolerated Floor Martín Gayle MD Neurosurgery resident 06/05/2019 5:30 Page [phone] with questions * Ora Gomez, PT - 06/04/2019 1320 EST [facility] Rehabilitation Therapy Acute Therapies [facility] Physical Therapy Encounter Note Date of Service: 06/04/2019 Subjective/Objective Subjective I don't know why this is so hard to do (sit to stand from bed). My right hip really hurts, not in the joint, but the muscles. Objective Intervention completed today: Time: 0950 Total treatment time: 30 minutes. Timed code treatment minutes: 30 Skin integrity Surgical incision covered with mepiplex; clean, dry and intact Pain during PT Spine incision/back during transitional movements; moderate 5/10 Right anterior hip during attempt of sit to stand and after ambulation; moderate 5-7/10 Vital Signs: Activity Heart rate (bpm) Blood Pressure (mmHg) Oxygen Sat/ Fractions of inspired Oxygen SPO2/FIO2 % room air Pre 94 125/73 98% During Post 99 123/86 99-100% Therapeutic Activity Bed Mobility ?? Supine to sit towards patient's left side to simulate home set up with supervision assist with reliance on bed rails and head of bed elevated Increased duration of time and effort to complete. Sit to stand from standard bed height; pt attempted x 3 and experienced increased right anterior hip pain; not able to stand withi moderate assist. Bed height elevated another 4 inches; pt able to perform sit to stand with moderate assist To RW with verbal cues for hand placement and sequencing Stand to sit from RW to commode placed over toilet with supervision assist and verbal cues for handplacement and sequencing Ambulation ?? With rolling walker assistive device and minimal contact assist for 110 feet x 2 Pt demonstrates decreased step length on left/weight bearing on right, flexed trunk and significantreliance on UE support on RW No shortness of breath, loss of balance or dizziness noted Stair negotiation Pt negotiated 5 stairs x 2 with bilateral rail support with close supervision. Pt noted increased right anterior hip pain with negotiating stairs. at conclusion of session, pt using bathroom (loose stool as soon as pt sat on commode over toilet) with call switch in reach. Patient/Family Education: Topic: Activity pacing/Energy conservation Assistive device/technique Bed mobility Discharge planning Gait Positioning Precautions/protocol Role of therapy Safety Stairs Transfers Learner: patient Method: verbal and demonstration Barriers to Learning: none noted Outcome: needs practice and verbalized understanding Team Communication: Pt status discussed with Nursing; Noted right anterior hip pain with mobility and pt in bathroom at conclusion of session. Assessment/Plan Assessment Mr. Sam has progressed with longer distance ambulation (110 feet x 2). He continues to require assist for sit to stand from bed and commode. He is experiencing right hip pain; likely musculoskeletal in hip flexor region with sit to stand, ambulation and stair negotiation. He is not safe to return home today due to level of assist needed for mobility. Anticipate he will be ready for discharge home with Home Health PT services within 1-3 days. If he progresses slower than anticipated, he may need subacute rehab. Plan Continue per plan of care Recommended Discharge Destination: Home with family and See assessment above Recommended Discharge Services: Home health physical therapy Recommended Equipment Needs: Patient has all necessary equipment Other recommendations: No other consults recommended at this time Pager: [phone] ORA GOMEZ PT 06/04/2019 13:20 * Ora Gomez, PT - 06/04/2019 1023 EST [facility] Rehabilitation Therapy [facility] Physical Therapy Contact Note Date of Service: 06/04/2019 In PT, Mr. Sam has progressed with longer distance ambulation (110 feet x 2). He continues to require assist for sit to stand from bed and commode. He is experiencing right hip pain; likely musculoskeletal in hip flexor region with sit to stand, ambulation and stair negotiation. He is not safe to return home today due to level of assist needed for mobility. Anticipate he will be ready for discharge home with Home Health PT services within 1-3 days. If he progresses slower than anticipated, he may need subacute rehab. Full note to follow Pager [phone] ORA GOMEZ PT 06/04/2019 10:23 * Luz Pierre OT - 06/04/2019 0942 EST [facility] Rehabilitation Therapy [facility] Therapy [facility] Occupational Therapy Initial Evaluation Note Date of Service: 06/04/2019 Reason for Referral: Evaluate and treat Precautions: Activity: Activity as tolerated Spinal Precautions: Other (Comment)(post surgery precautions) Subjective: Subjective Information Reported by: Patient Reporting Person Comment: I am not ready to go home today. Pain Evaluation Pain Comments: Pt reports decreased pain levels in back but did not rate. Objective: Patient Profile: Nakul Sam is a 74 y.o. male admitted on 05/31/2019 secondary to Spinal stenosis, lumbar regionwith neurogenic claudication [M48.062] Spinal stenosis of lumbar region with neurogenic claudication [M48.062]. The patient lives at [address] [place] [id number] History of Present Illness/Injury Per Progress Note by Dr. Gayle dated 06/04/2019: Assessment/ 74M w PMH significant for C4-T2 decompression and fusion (Dr. Ahumada, 12/2018) who presented to clinic with improvement in upper extremity symptoms but persistent low back pain and symptoms of neurogenic claudication in bilateral legs. Imaging demonstrates central stenosis L1-L5 with moderate degenerative scoliosis and grade 1 anterolisthesis L4-5, along with foraminal stenosis at L3- 4 and L4-5. Presents DOSA for decompression of L1-L5 and fusion of L3-L5. Postoperative incision pain improved. Work with therapies today. Procedures: Per Brief Op Note by Dr. Small dated 05/31/2019: BRIEF OP NOTE ?? PRE-OP DIAGNOSIS = Lumbar stenosis, L4-L5 spondylolisthesis POST-OP DIAGNOSIS = same as above PROCEDURE = L1-L5 posterior decompression, L3-L5 instrumented fusion, repair of durotomy with nurolon and tisseal SURGEON = Rios Ahumada MD PHARMACOGNOSY TEACHER = Good Small MD ANESTHESIA = GETA COMPLICATIONS = Durotomy FINDINGS = Bony and ligamentous stenosis EBL = 450 IVF = See anesthesia record UOP = See anesthesia record SPECIMENS/CULTURES = None DRAINS = None SKIN = Nylon DISPO = PACU then Floor ?? General Home Environment Safety Assessment / Living Environment Home environment: House Basic Home Layout Home layout: One level Entrance Stairs: Stairs to enter with rails # of Steps to Enter: 3 Bathroom Accessibility: Accessible Bathroom Set up: Standard toilet, Tub/shower unit Home Equipment Bathing Equipment: 3-in-1 commode, Grab bars in shower/tub, Shower chair(Pt reported having a commode, shower chair and in flight refueling craftsman but was unsure where they were. ) Dressing/Grooming/Feeding Equipment: Dressing stick, Claims Examiner, Sock aid Mobility Equipment Mobility Equipment: Cane, Walker, Crutches Walker Specifics: Rolling walker - 2 wheels Caregiver Support Support Person: Spouse Amount of Support: 24 hour supervision Support Comment: Pt reported his was able to provide 24/7 assist/supervision however pt's wifewas not here to confirm this. Lives With: Spouse Living Arrangement Comments: Pt and his have seperate homes however he will be moving into [facility] upon initial DC. Prior Level of Function Prior Level of Function Comment: Pt reported modified indpendence with BADLs. Pt used adapative equipment (sock aid, dressing stick, etc) to dress himself. Pt uses a rolling walker to mobilize as of recently. 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 Pt reported managing his own medication and performing the cooking, cleaning and laundry chores. Pt was receiving OT and PT 2-4x weekly prior to admission. Occupation Occupation: Retired Medical/Surgical History: Current: Patient Active Problem List Diagnosis ??? Cervical spondylosis with myelopathy ??? Cervical spondylosis with radiculopathy ??? Spinal stenosis, lumbar region with neurogenic claudication Past: Past Medical History: Diagnosis Date ??? A-fib ([facility]) dx in 2014, controlled well ??? Anesthesia complication 12/2018 Pt states he took methocarbamal after surgery and kept having periods of apneia per his . ??? Asthma due to seasonal allergies ??? Hyperlipidemia ? ? Nausea & vomiting ??? Open wound of armpit region with tendon involvement ??? Spinal stenosis Past Surgical History: Procedure Laterality Date ??? CATARACT REMOVAL WITH IMPLANT Bilateral 2014 ??? JOINT REPLACEMENT Left 2016 spinal-no problems(was told needed a long needle for spinal) ??? NECK SURGERY 12/2018 cevical spondylosis with myelopathy ??? ME ALLOGRAFT FOR SPINE SURGERY ONLY STRUCTURAL N/A 05/31/2019 . performed by Caleb Ahumada MD at [facility] OR ??? ME ARTHRODESIS POSTERIOR/POSTEROLATERAL LUMBAR N/A 05/31/2019 lumbar laminectomy L1-2 through L4-5, L3-5 instrumented fusion with the use or possible use of allograft performed by Caleb Ahumada MD at [facility] OR ? ? ME LAMINECTOMY,>2 SGMT,LUMBAR N/A 05/31/2019 . performed by Caleb Ahumada MD at [facility] OR ??? ME POSTERIOR SEGMENTAL INSTRUMENTATION 3-6 VRT SEG N/A 05/31/2019 . performed by Caleb Ahumada MD at [facility] OR ??? ME SPINE FUSN,POST TECH,EA ADDNL SGMT N/A 05/31/2019 . performed by Caleb Ahumada MD at [facility] OR Medications: Current Medications: Current medications reviewed Body Functions and Performance Skills: Cardiovascular/Respiratory Systems Function: BP: 125/73 BP Cuff Location: Left arm BP Patient Position: Supine Pulse: 90 SpO2: 99 % Mental Functions: Arousal/Alertness: Appropriate responses to stimuli Orientation Level: Oriented to person, Oriented to situation, Oriented to place Orientation Comments: Did not inquire re: date/time Following Commands: Able to follow two-step commands consistently. Attention: No issues noted. Memory: Pt continously asking about nursing staff coming to assist with toileting despite OT telling him that the call anand had been cancelled however pt able to recall and follow precautions throughout OT session. Insight: Intact Insight Comments: Pt recognized that he was unable to return home given his current impairments. Safety Awareness: Demonstrates decreased safety awareness Sensory Functions: Touch: Intact C2-T1. Pt reported having LE tingling prior to surgery that has since resolved. Vision: Pt wears bifocals at baseline. Pt reported having cataract surgery on both eyes. Pt denied any acute changes in vision including blurry vision and diplopia. Hearing: Grossly intact to conversational tones. Neuro musculoskeletal and Movement Related Functions: Range of motion: B UE AROM grossly WNL. Strength: B UE grossly 4-5/5. Skin and Related Structure Functions: Skin Integrity Integrity: Non-Intact(Incision site.) Location: Back Areas of Occupation and Performance Skills: Basic Activities of Daily Living: Feeding: Anticipate independence. Grooming: Independent using wet wipes to clean hands performed seated EOB after set-up A to retrieve wipes. Lower Body Dressing: Pt able to doff/don production laborer socks using dressing stick and sock aid performed seated on couch. Pt required physical assistance to adjust socks bilaterally. Pt able to partially doff/don compression socks but was ultimately max A to don/doff compression socks. Toileting: Pt able to manage hospital gown. Pt max A to perform toileting hygiene in standing with use of rolling walker. See intervention section below for additional information. Toilet Transfer: Min contact A with use of rolling walker to/from raised toilet (commode frame overtoilet with rails) with multiple verbal cues for hand placement to prevent rolling walker from tipping and maximize safety with functional transfers. Functional Mobility: Pt in supine upon OT arrival. Supine<>sit: Supervision using log roll technique to R side with verbal reminder to utilize log roll when returning to supine. Sit<>stand: Min contact A with use of rolling walker to/from raised toilet (commode frame over toilet with rails), hospital bed and couch with multiple verbal cues for hand placement to preventrolling walker from tipping and maximize safety with functional transfers. Mobility: Min contact A with use of rolling walker in room with 1 verbal cue to maintain rolling walker close to the body to maximize safety. Social Participation: Pleasant and cooperative. Outcomes: None at this time. Informed Consent: The patient consented to the Occupational Therapy evaluation. The patient agrees to and understandsthe Occupational Therapy treatment plan and goals. Interventions Completed Today: Occupational Therapy Today At: Time: 0815 Total Treatment Time (minutes): 70 Timed Code Treatment Minutes: 40 Interventions Included: Procedures Procedures Q-Z: Self-care/home management Self-Care/Home Management Minutes: 40 - Educated pt re: role of OT. - Educated pt re: post surgery precautions and their effect of performing BADLs. Provided pt with compensatory strategies for performing BADLs. Verbally instructed pt on log roll technique and sequencing. Pt able to perform log roll to R side with supervision. Pt required 1 verbal cue to utilize the log roll to return to the hospital bed. Verbally instructed and demonstrated figure-4 technique for LB dressing to minimize forward bending. Pt unable to achieve position bilaterally. Pt expressed using sock aid and dressing stick at home. Pt able to don/doff socks seated on couch with dressing stick and sock-aid with physical assistance to adjust socks and max A to don/doff compression socks (see LB dressing above). Pt stated that his would be able to assist with LB dressing. Verbally instructed and demonstrated compensatory UB dressing strategy to minimize twisting when wearing button-down shirts and jackets. Pt verbalized understanding. Verbally instructed pt on compensatory strategies for bathing to minimize twisting and adaptive equipment including using a shower-chair and long-handled sponge. Pt stated that his is able to wash his back and LB. Pt stated that he has a shower-chair but is not sure where it is. Encouraged pt to check with his . Verbally instructed and demonstrated compensatory toileting hygiene techniques and adaptive equipment to minimize twisting. Pt unable to perform toilet hygiene with toilet tongs ultimately leading to max A. Pt stated his could assist with toilet hygiene or he would consider purchasing longer toileting aid. Left pt with toilet tongs. Discussed where to purchase equipment with pt. - Performed multiple functional transfers min contact A with use of rolling walker to/from raised toilet (commode frame over toilet with rails), hospital bed and couch with multiple verbal cues for hand placement to prevent rolling walker from tipping and maximize safety with functional transfers. - Educated pt re: basic energy conservation techniques including allowing for additional time to complete activities to incorporate rest breaks and pacing oneself. Pt verbalized understanding. - Initiated discussion re: DC planning including option for REANNA and home with services including OT. Pt reported wanting to DC home but feels he is not able to DC home today. The patient was left in the: bed with the: Call anand in reach, Venodynes on Patient/Family Education: Activity/Work/Community: Activity/energy conservation, Pacing Braces and Equipment: Adaptive equipment/durable medical equipment, Assistive device/technique Mobility, Transfers, and Gait: Functional transfers Recommendations: Discharge recommendations/planning Safety: Post-operative precautions per protocol, Safety Therapy Specific: Role of occupational therapy Learner: Patient Method: Demonstration, Verbal Barriers to Learning: None Outcome: Verbalized understanding, Returned demonstration, Needs practice Team Communication: Notified: Nurse When: Prior to therapy session, During therapy session By: Gkyo-ge-wmel communication Notification Comments: Re: pt status Assessments: Need for Services Appropriateness for Occupational Therapy: The patient was appropriate for an occupational therapy evaluation today Mr. Sam was found to be appropriate for skilled acute OT services after presenting to [facility] s/pL1-L5 posterior decompression, L3-L5 instrumented fusion, repair of durotomy with nurolon and tisseal performed on 05/31/2019. Prior to hospitalization, pt was modified independent with BADLs and independent with IADLs. Currently, pt is presenting below his functional baseline with impairments including decreased activity tolerance, impaired balance, increased pain, impaired recall and decreased safety awareness impacting his ability to perform BADLs and IADLs independently. Given his performance today, I do not feel Mr. Leyva is safe to return home today but anticipate that he will progress with OT to DC home safely with his 's 18/01 supervision/assit and HH services including OT. Ifhe does not progress with OT then REANNA is recommended to further address impairments and promote independence in BADLs, IADLs and functional mobility/transfers. Patient Strengths Personal Factors: Insights into deficits, Motivation, Participation level, Experience with rehabilitation services, Previous level of function Environmental Factors: Family/social support Barriers Personal Factors: Unsafe Medical Necessity Medical Necessity: Occupational therapy is medically necessary to provide compensatory and remediation training to maximize the patient's independence and participation in activities of daily living and instrumental activities of daily living. Barriers Personal Factors: Unsafe Goals: Short Term Goals: N/A Flight Operation Coordinator Goals: Flight Operation Coordinator Goal Time Frame Flight Operation Coordinator Goal Time Frame: 1-2 weeks Flight Operation Coordinator Goal 1 Goal: Will perform functional transfers to/from varying surfaces modified I to perform BADL or other functional activities. Flight Operation Coordinator Goal 2 Goal: Will perform LB dressing/self-care modified I. Group Home Goal 3 Goal: Will perform UB dressing/self-care modified I. Group Home Goal 4 Goal: Will perform toileting tasks min contact A. Flight Operation Coordinator Goal 5 Goal: Will recall and follow post surgery precautions without verbal reminders during OT sessions. Group Home Goal 6 Goal: Will verbalize understanding of any OT recommendations. Plan: Necessity: Occupational therapy will be provided by the occupational therapist and/or parking assistant when medically appropriate Active Engagement: Activity tolerance, Therapeutic exercise, Therapeutic activities, Self-care/homemanagement Frequency: Daily, Weekly Frequency Comments: 2-4 Intensity: 15-45 minutes Duration: Duration of hospitalization Interventions May Include: Therapeutic exercise, Therapeutic activities, Self- care/home management Patient/Family Education: Discharge planning, Family/caregiver education, Patient education, Role of physical therapy/occupational therapy/rehabilitation, Equipment, Recommendations, Safety, Falls Prevention, Instruction in precautions Recommended Discharge Destination: Home vs. subacute rehabilitation Recommended Discharge Destination Comments: Home with 's 18/01 support/assistance vs. subacute rehab pending progress with PT/OT Therapy Specific Services: Occupational therapy Equipment Recommended: Bathing Equipment, Dressing/Grooming/Feeding Equipment Bathing Equipment: Shower chair, Toilet aid, Grab bars next to toilet Dressing/Grooming/Feeding Equipment: Claims Examiner VADIM TORO, 06/04/2019, 10:35 LUZ PIERRE OT06/04/201914:09 Pager: [phone] * Martín Gayle MD - 06/04/2019 0434 EST Neurosurgery Daily Progress Note Problems/ Low back pain Neurogenic claudication Prior C4 to T2 posterior instrumented fusion with decompression Procedures/ L1-L5 posterior decompression, L3-L5 instrumented fusion, repair of durotomy with nurolon and tisseal (Dr. Ahumada, 05/31/19) 24 Hr/ Lovenox started Hyponatremic to 128 Placed on fluid restriction Having BMs Moblizing JENNIFER overnight Subjective/ Incisional pain improved, controlled with Tylenol. Legs feel strong. Had BM. Objective/ BP 96/80 (BP Cuff Location: Left arm, BP Patient Position: Supine) Pulse 88 Temp 35.8 ??C (96.4??F) (Tympanic) Resp 17 Ht 174 cm (68.5) Wt (!) 103.9 kg (229 lb) Comment: per 05/08/19 SpO2 100% BMI 34.31 kg/m?? AO3 Extraocular movements intact Face symmetric No drift Drywall Taper 5/5 bl Elbow extension and flexion 5/5 bl Hip flexion 5/5 bl Knee flexion and extension 5/5 bl Dorsi and plantar flexion 5/5 bl Sensation grossly intact x 4 Incision c/d/i Assessment/ 74M w PMH significant for C4-T2 decompression and fusion (Dr. Ahumada, 12/2018) who presented to clinic with improvement in upper extremity symptoms but persistent low back pain and symptoms of neurogenic claudication in bilateral legs. Imaging demonstrates central stenosis L1-L5 with moderate degenerative scoliosis and grade 1 anterolisthesis L4-5, along with foraminal stenosis at L3- 4 and L4-5. Presents DOSA for decompression of L1-L5 and fusion of L3-L5. Postoperative incision pain improved. Work with therapies today. Plan/ Pain control Q4h neuro checks, vitals, I&O Regular diet PT/OT - continue to work, priority for dispo SpO2 >92% SBP goal 100-160 SCD/ROSA ELENA/Lovenox for DVT ppx Activity as tolerated Floor Martín Gayle MD Neurosurgery resident 06/04/2019 4:34 Page [id number] with questions * Martín Gayle MD - 06/03/2019 0501 EST Neurosurgery Daily Progress Note Problems/ Low back pain Neurogenic claudication Prior C4 to T2 posterior instrumented fusion with decompression Procedures/ L1-L5 posterior decompression, L3-L5 instrumented fusion, repair of durotomy with nurolon and tisseal (Dr. Ahumada, 05/31/19) 24 Hr/ Hwang removed Straight cath x1 Voiding spontaneously thereafter Ambulated Uprights completed PT rec continued mobility, however anticipate d/c to home JENNIFER overnight Subjective/ Incisional soreness improving, passing flatus, however no BM yet. Objective/ BP 129/79 (BP Cuff Location: Left arm, BP Patient Position: Semi fowlers) Pulse 78 Temp 37.1 ??C (98.7 ??F) (Tympanic) Resp 17 Ht 174 cm (68.5) Wt (!) 103.9 kg (229 lb) Comment: per 05/08/19 SpO2 97% BMI 34.31 kg/m?? AO3 Extraocular movements intact Face symmetric No drift Drywall Taper 5/5 bl Elbow extension and flexion 5/5 bl Hip flexion 5/5 bl Knee flexion and extension 5/5 bl Dorsi and plantar flexion 5/5 bl Sensation grossly intact x 4 Incision dressing c/d/i Assessment/ 74M w PMH significant for C4-T2 decompression and fusion (Dr. Ahumada, 12/2018) who presented to clinic with improvement in upper extremity symptoms but persistent low back pain and symptoms of neurogenic claudication in bilateral legs. Imaging demonstrates central stenosis L1-L5 with moderate degenerative scoliosis and grade 1 anterolisthesis L4-5, along with foraminal stenosis at L3- 4 and L4-5. Presents DOSA for decompression of L1-L5 and fusion of L3-L5. Postoperatively with incisional pain but no leg pain or weakness. Continue to work with PT. Plan/ Pain control Q4h neuro checks, vitals, I&O Regular diet PT/OT - continue to work, priority for dispo SpO2 >92% SBP goal 100-160 SCD/ROSA ELENA for DVT ppx Consider DVT chemoppx Activity as tolerated Floor Martín Gayle MD Neurosurgery resident 06/03/2019 5:01 Page [id number] with questions * Ora Gomez, PT - 06/02/2019 0903 EST [facility] Physical Therapy Contact Note Date of Service: 06/02/2019 PT attempted to see Mr. Sam at 0900. He is currently in the bathroom. Per discussion with Nursing, he required one assist for bed mobility and ambulation to br with RW PT will follow up later today Pager [phone] ORA GOMEZ PT 06/02/2019 9:03 * Ora Gomez, PT - 06/02/2019 0835 EST [facility] Physical Therapy Initial Evaluation Note Date of Service: 06/02/2019 Reason for Referral: Evaluate and treat Mobility Precautions Activity: Activity as tolerated Spinal Precautions: Spine A Surgery/No Brace SUBJECTIVE: pt reports his legs no longer feel tingly or numb; resolved since surgery Pain Evaluation Pain Comments: pt reports no pain at rest. Significant increase in pain with attempt of sit to stand Select Specific Pain Scale: Numeric Numeric Pain Scale Numeric Pain Level (Scale 1-10): 7 Primary Pain Site Assessment Pain Location: Back Pain Orientation : Lower, Mid Frequency of Pain: Since surgery, Intermittent Pain Quality: Aching, Sharp(stretching at incision) Pain Duration: Intermittent Pain Aggravating Factors: Coughing, Movement, Prolonged positioning Pain Alleviating Factors: Movement, Pain medications, Positioning, Rest OBJECTIVE: PatientProfile: Patient is a 74 y.o. male admitted on 05/31/2019 secondary to Spinal stenosis, lumbar region with neurogenic claudication [M48.062] Spinal stenosis of lumbar region with neurogenic claudication [M48.062] The patient lives at [address] [place] [id number] History of Present Illness / Injury Current Illness / Injury: 74M w PMH significant for C4-T2 decompression and fusion (Dr. Ahumada, 12/2018) who presented to clinic with improvement in upper extremity symptoms but persistent low back pain and symptoms of neurogenic claudication in bilateral legs. Imaging demonstrates central stenosis L1-L5 with moderate degenerative scoliosis and grade 1 anterolisthesis L4-5, along with foraminal stenosis at L3-4 and L4-5. Presents DOSA for decompression of L1-L5 and fusion of L3-L5 Date of Surgery: 05/31/19( L1-L5 posterior decompression, L3-L5 instrumented fusion, repair of durotomy with nurolon and tisseal ) Safety Assessment / Living Environment Home environment: House Basic Home Layout Home layout: One level Entrance Stairs: Stairs to enter with rails # of Steps to Enter: 3 Entrance Stairs - Rails: Right Mobility Equipment Mobility Equipment: Cane, Walker Walker Specifics: Rolling walker - 2 wheels Support Support Person: Spouse Amount of Support: 24 hour supervision Living Arrangement Lives With: Spouse Living Arrangement Comments: Patient and his spouse each have their own home, but pt plans to stay at her house in [place] during his recovery General Prior Level of Function Comment: Pt reports needing cane/Rw recently before surgery due to leg weakness and numbness. He had been independent with no assistive device prior to this Level of Assistance Throughout: Independent Medical/Surgical History: Current: Patient Active Problem List Diagnosis ??? Cervical spondylosis with myelopathy ??? Cervical spondylosis with radiculopathy Past: Past Medical History: Diagnosis Date ??? A-fib ([facility]) dx in 2014, controlled well ??? Anesthesia complication 12/2018 Pt states he took methocarbamal after surgery and kept having periods of apneia per his . ??? Asthma due to seasonal allergies ??? Hyperlipidemia ? ? Nausea & vomiting ??? Open wound of armpit region with tendon involvement ??? Spinal stenosis Past Surgical History: Procedure Laterality Date ??? CATARACT REMOVAL WITH IMPLANT Bilateral 2014 ??? JOINT REPLACEMENT Left 2016 spinal-no problems(was told needed a long needle for spinal) ??? NECK SURGERY 12/2018 cevical spondylosis with myelopathy ??? ME ALLOGRAFT FOR SPINE SURGERY ONLY STRUCTURAL N/A 05/31/2019 . performed by Caleb Ahumada MD at [facility] OR ??? ME ARTHRODESIS POSTERIOR/POSTEROLATERAL LUMBAR N/A 05/31/2019 lumbar laminectomy L1-2 through L4-5, L3-5 instrumented fusion with the use or possible use of allograft performed by Caleb Ahumada MD at [facility] OR ? ? ME LAMINECTOMY,>2 SGMT,LUMBAR N/A 05/31/2019 . performed by Caleb Ahumada MD at [facility] OR ??? ME POSTERIOR SEGMENTAL INSTRUMENTATION 3-6 VRT SEG N/A 05/31/2019 . performed by Caleb Ahumada MD at [facility] OR ??? ME SPINE FUSN,POST TECH,EA ADDNL SGMT N/A 05/31/2019 . performed by Caleb Ahumada MD at [facility] OR Medications Current Medications: Current medications reviewed Arousal, Attention, and Cognition: Mental Functions: No problems noted Orientation Level: Oriented X 4 Cardiopulmonary: BP: 105/65 BP Cuff Location: Left arm BP Patient Position: Sitting Pulse: 78 SpO2: 95 % Integumentary/Anthropometric Characteristics: Wounds Wound Type: Surgical incision Wound Closure: Fully closed, Unable to assess Dressings Type of Dressing: Gauze, Tegaderm Dressing Status: Clean, Dry, Intact Edema Description Edema Type: Acute Acute Details: Diffuse, Moderate Other Edema Description: both hands Left >right - Devices Devices: IV - Sitting Postures General Assessment: No problem noted Standing Posture General Assessment: Impairments noted Head: Forward head Shoulders: Rounded shoulders Range of Motion and Joint Integrity: Active Range of Motion: Within normal limits Upper Quarter: Left Upper Extremity: Right Upper Extremity: Cervical Spine: Lower Quarter: Left Lower Extremity: Right Lower Extremity: Lumbar Spine: Muscle Performance: Strength: Formal resistive muscle testing was not performed due to focus on functional activities at this time Upper Quarter: Left Upper Extremity: at least greater than 3/5 as noted during functional activities Right Upper Extremity: at least greater than 3/5 as noted during functional activities Cervical Spine: Lower Quarter: Left Lower Extremity: at least greater than 3/5 as noted during functional activities and LE exercise program Right Lower Extremity: at least greater than 3/5 as noted during functional activities and LE exercise program LumbarSpine: Sensation, Reflexes, and Nerve Integrity: Light Touch Sensation: Upper Quarter:Intact C2-T1 Lower Quarter: Intact for lower extremities Pt notes improvement in LE sensation as compared to prior to surgery Neuromotor Function/Development: No problems noted Balance, Mobility, and Gait: Balance: No loss of balance observed throughout physical therapy session Pt demonstrates moderate to heavy reliance on UE support on Rw; not able to perform static or dynamic stand without UE support Mobility: sit to supine: pt able to lower trunk effectively and safely with UE support on bed/bedrail Required moderate assist to bring legs on to bed sit to stand: Per pt report and Nursing; from bed; minimal assist of one. From recliner chair; pt required 6 attempts to stand due to increased incisional pain with weight bearing; Once pt shifted to sit towards front of chair with cues for sequencing; moderate assist of 2 stand to sit: supervision with cues for hand position Chair to bed: minimal assist of 1-2 with RW Gait: RW adjusted for pt height; Ambulated 80-100 feet x 1 with RW; demonstrates moderate reliance on UE support; flexed trunk posture Self-Care, Home Management, Work, and Leisure: Not assessed Informed Consent: Informed Consent: The patient consented to the Physical Therapy evaluation. The patient agrees to and understands the Physical Therapy treatment plan and goals. Interventions Completed Today: Time: 10:45 Total Treatment Time (minutes): 30 Timed Code Treatment Minutes: 10 Interventions Included: Procedures Procedures Q-Z: Therapeutic activities, Therapeutic exercise Procedures Comments: Instructed in LE AROM exercise program; cued to perform slowly and through full available range of motion. Pt performed x 10 reps reclined in chair; ankle pumps, heel slides, hipabd/add and Bilateral UE shoulder flexion Interventions Comments: Pt attempted to perform sit to stand x 4; not able to generate adequate force production to bring weight forward to attain full standing. Cued for positioning and to sit towards edge of recliner chair seat; Pt able to stand with moderate assist of 2 The patient was left in the: recliner with the: Call anand in reach, Venodynes off Patient Status at the End of the Therapy Session Comments: venodynes off per pt request Patient/Family Education: Education Topics Activity/Work/Community: Activity/energy conservation, Body mechanics Exercise: Home exercise program Medical Information/Signs and Symptoms: Pain management, Ambulate with staff member only Mobility, Transfers, and Gait: Functional transfers, Gait, Moblity recommendations Recommendations: Discharge recommendations/planning Safety: Post-operative precautions per protocol Therapy Specific: Role of physical therapy Team Communication: Notification to, Notified: Nurse When: Prior to therapy session, During therapy session, After therapy session By: [id number] communication About Mobility and Gait: Mobility status, Recommendation for nursing to ambulate with patient on unit Patient Status and Referrals: Patient status, Plan of care Assessment: Need for Services Physical Therapy is medically necessary to: Establish and progress mobility/exercise and provide recommendations for staff and safe discharge planning, Address body structure/function impairments, activity limitations, and participation restriction, Facilitate return to prior level of function Physical Therapy Diagnosis: Physical Therapy Diagnosis Physical Therapy Diagnosis: Impaired mobility Body/Structure/Function Impairments Musculoskeletal Impairments: Muscle strength, Muscle performance Other Impairments: Pain, Edema Activity Limitations Activity Limitations: Gait, Functional mobility/transfers Activity Limitations Comment: s/p recent spine surgery Patient Strengths Personal Factors: Cognition, Insights into deficits, Motivation, Safety awareness, Experience with rehabilitation services Physical Therapy Prognosis: Current Status Compared to Baseline Level of Function Current Status Compared to Baseline Level of Function: Below baseline level Current Status Compared to Baseline Level of Function Comments: Patient was at a modified independent to independent level with mobility in his home and community prior to surgery. He currently requires assistive device and physical assist for all mobility; limited by pain and decreased strength and activity tolerance Rehabilitation Potential Rehabilitation Potential: Good Rehabilitation Potential Comments: Pt is motivated to increase activity. Anticipate he will make steady progress and be ready for discharge home with family support in 2-3 days. He may benefit from [facility] PT services pending progress Short-Term Goals:na Long-Term Goals: Group Home Goal Time Frame: 2 days to 2 weeks; Mr. Sam will demonstrate the following; Goal: independence supine <->sit with flat bed and no rails Status: Initiated Goal: modified independence to independent ambulation 200-300 feet with equal reciprocal steps and erect trunk posture Status: Initiated Goal: independent home exercise program Status: Initiated Goal: modified independence wtih negotiating 3 stairs with one rail Status: Initiated Goal: vitals remain stable with above PLAN: Necessity: Physical therapy will be provided by the physical therapist and/or physical therapist sales and marketing assistant when medically appropriate Pt will benefit from continued opportunity to ambulate with Nursing assist. PT will follow up on Monday 06/04. Please contact PT if pt needs to be seen sooner if he is medically ready for discharge and ambulating well in the shabazz with Nursing assist. Active Engagement: Therapeutic exercise, Therapeutic activities Frequency: Daily, As determined by patient's medical stability, tolerance to activity, and progression of functional activities Frequency Comments: 2-5 times per week Intensity: 15-45 minutes Duration: Duration of hospitalization Interventions May Include: Therapeutic activities, Therapeutic exercise, Gait training Patient/Family Education: Discharge planning, Role of physical therapy/occupational therapy/rehabilitation, Home exercise program, Instruction in precautions Further Data Further Data: Initiate stairs as indicated Recommended Discharge Destination Recommended Discharge Destination: Home with family support/supervision Recommended Discharge Services Therapy Specific Services: Home therapy, Physical therapy Therapy Specific Services Comments: pending progress Equipment Recommended Equipment Recommended Comments: pt has necessary equipment Pager: [phone] ORA GOMEZ PT 06/02/2019 13:59 * Martín Gayle MD - 06/02/2019 0510 EST Neurosurgery Daily Progress Note Problems/ Low back pain Neurogenic claudication Prior C4 to T2 posterior instrumented fusion with decompression Procedures/ L1-L5 posterior decompression, L3-L5 instrumented fusion, repair of durotomy with nurolon and tisseal (Dr. Ahumada, 05/31/19) 24 Hr/ -BP remained stable in 100s -HR 100s -Activity as tolerated -Did not mobilize -Hwang kept in -Uprights deferred -Left hand swelling associated with IV site leak/infiltration, no swelling in proximal arm -JENNIFER overnight Subjective/ Complains of incisional soreness, better than yesterday. Has constipation. Wants to get up today. Objective/ BP 114/79 (BP Cuff Location: Left arm, BP Patient Position: Semi fowlers) Pulse 82 Temp 37.4 ??C (99.4 ??F) (Tympanic) Resp 17 SpO2 96% AO3 Extraocular movements intact Smile symmetric Tongue midline Shrug symmetric Facial sensation grossly intact No drift Drywall Taper 5/5 bl Elbow extension and flexion 5/5 bl Hip flexion 5/5 bl Knee flexion and extension 5/5 bl Dorsi and plantar flexion 5/5 bl Sensation grossly intact x 4 Incision dressing c/d/i Assessment/ 74M w PMH significant for C4-T2 decompression and fusion (Dr. Ahumada, 12/2018) who presented to clinic with improvement in upper extremity symptoms but persistent low back pain and symptoms of neurogenic claudication in bilateral legs. Imaging demonstrates central stenosis L1-L5 with moderate degenerative scoliosis and grade 1 anterolisthesis L4-5, along with foraminal stenosis at L3- 4 and L4-5. Presents DOSA for decompression of L1-L5 and fusion of L3-L5. Postoperatively with incisional pain but no leg pain or weakness. Will mobilize today. Plan/ Pain control Q4h neuro checks, vitals, I&O Regular diet PT/OT SpO2 >92% SBP goal 100-160 SCD/ROSA ELENA for DVT ppx Consider DVT chemoppx Uprights when able Hwang dc once mobilizing Activity as tolerated Martín Gayle MD Neurosurgery resident 06/02/2019 5:10 Page [phone] with questions * Cristy Mckay RN - 06/01/2019 9773 EST Pt POD1 s/p L1-5 posterior decomp, L3-5 instrumented fusion, and dural tear repair, dry drsg c/d/i.Pt only tolerating raising HOB to 55 degrees so far, willing to try higher tomorrow. Pt rates lowerback pain at 7/10 consistently. Pt has class III tele orders for a-fib monitoring, required IV metoprolol previous night. #[phone] paged about need to renew or d/c tele and about new concern of L. Hand swelling after pulling out leaky IV. MD Resendiz d/c'd tele orders--notify [id number] if HR sustains in 120s-130s. assessed pt's L. Hand and wasnot concerned of DVT, no need for ultrasound/imaging. Pt now sleeping comfortably in bed, saline locked, hwang still in (per pt request) until able to sit higher to use urinal, call anand in reach, will continue to monitor. * Capo Camargo RN - 06/01/2019 5237 EST Initial Case Management/Social Work Assessment and Discharge Plan/Readmission Risk Assessment REASON FOR ADMISSION: L1-L5 posterior decompression, L3-L5 instrumented fusion, repair of durotomy with nurolon and tisseal??(Dr. Ahumada, 05/31/19) Patient understands reason for admission: Yes PATIENT CONTACT INFO VERIFIED: Yes PATIENT ADDRESS VERIFIED: Yes LIVING ARRANGEMENTS AND ACCESSIBILITY ISSUES: Living Arrangements: Alone, Private residence Levels: 1 Stairs to enter: 3 Handicap access: Grab bars Bathroom located on bedroom level?: Yes What in home social supports are available to the patient? Spouse / significant other Is 18/01 care available? Yes ADVANCED DIRECTIVES, POA &/or COLST IN PLACE: Healthcare Directive: Yes, patient has advance directive for healthcare treatment Type of Healthcare Directive: Health care treatment directive, Durable power of safety clothing and equipment developer for healthcare Copy in Chart: Yes, previous copy on file @ [facility] DIRECTIVES FOR FINANCES: Directive For Finances: No TRANSPORTATION: Transportation: Family, Self CULTURAL, MUSLIM and/or LANGUAGE factors affecting health care/discharge planning: Spiritual/Cultural Requests: None Any factors affecting health care/discharge planning?: No Insurance in Place: Yes Medical Insurance: Yes Type of insurance: Medicare, Supplemental plan to Medicare Medicare type: A, B, D Supplemental: [employer] Referred to patient financial services: No DISCHARGE RISK ASSESSMENT: Lives at home with limited or no community support;Repeat hospitalizations/ED visits Total # selected above: Score of 2 - 4: This patient is at MODERATE RISK for re-hospitalization Tentative plan to address the risk of re-hospitalization for those at HIGH MODERATE RISK: Refer to skilled home care services RAPT TOOL: Age: >75 Gender: Male Ambulation distance: 1-2 blocks Gait device: Single point device Community Services: Home health, MOW, SAS-none of one time a week Will you live with someone who will care for you?: Yes RAPT Tool Score: 8 Patient expects to be discharged to: Spouse's home SBIRT: SASQ (Single Alcohol Screening Question) How many times in the past year have you had 5 or more drinks in a single day?: Never How many times in the past year have you used an illegal drug or used a prescription medication fornon-medical reasons?: Never Intervention in place/initiated?: No, not indicated FUNCTIONAL STATUS: Activities patient requires assistance: Food preparation/shopping Assistive Device: Grab bars, Crutches, Front wheel walker COMMUNITY RESOURCES/SUPPORTS: Primary Care Provider: Garcia Gonzales PCP Verified: Yes Specialists: Other(Neurosurg) Type of Home Health Services: None DME Provider: [facility] Pharmacy: [id number] - [place], [place] - [address] [facility] [address] Home Health: Other: POST HOSPITAL TRANSITION PLAN: Patient will plan to discharge to his second house where his spouse lives. She will be his transportation and main source of support while recovering. Spouse lives at [address] [place] [address]/[place] [address] and patient will be going to this address after surgery and receiving home health services through [facility]. Patient has necessary DME, new front rolling walker, recommended to bring into facility. CHoice form signed, copy given to patient and informed MD and liaison of choice. No other needs at this time, CM will follow up closer to discharge. CAPO CAMARGO 06/01/2019 14:44 * Murray Gomes MD - 06/01/2019 0949 EST Neurosurgery Post Procedure Note Problems/ Low back pain Neurogenic claudication Prior C4 to T2 posterior instrumented fusion with decompression Procedures/ L1-L5 posterior decompression, L3-L5 instrumented fusion, repair of durotomy with nurolon and tisseal (Dr. Ahumada, 05/31/19) 24 Hr/ -Given 500cc bolus x2 for borderline hypotension -Kept Flat overnight -A-fib with rate >110, given home dose of metoprolol 25 XL then 5 mg IVPB x1 for persistently elevated rate; rate now <110 Subjective/ Incisional soreness and back pain, no leg pain or weakness Objective/ BP 105/66 Pulse 82 Temp 37.7 ??C (99.9 ??F) (Tympanic) Resp 17 SpO2 97% AO3 Extraocular movements intact Smile symmetric Tongue midline Shrug symmetric Facial sensation grossly intact No drift Drywall Taper 5/5 bl Elbow extension and flexion 5/5 bl Hip flexion 5/5 bl Knee flexion and extension 5/5 bl Dorsi and plantar flexion 5/5 bl Sensation grossly intact x 4 Assessment/ 74M w PMH significant for C4-T2 decompression and fusion (Dr. Ahumada, 12/2018) who presented to clinic with improvement in upper extremity symptoms but persistent low back pain and symptoms of neurogenic claudication in bilateral legs. Imaging demonstrates central stenosis L1-L5 with moderate degenerative scoliosis and grade 1 anterolisthesis L4-5, along with foraminal stenosis at L3- 4 and L4-5. Presents DOSA for decompression of L1-L5 and fusion of L3-L5. Postoperatively with incisional pain but no leg pain or weakness. Plan/ Pain control Q4h neuro checks, vitals, I&O Regular diet PT/OT SpO2 >92% SBP goal 100-160 SCD/ROSA ELENA for DVT ppx Hold anticoagulants, antiplatelet agents Uprights when able Hwang dc once mobilizing Activity as tolerated Murray Gomes MD Neurosurgery resident 06/01/2019 9:49 Page [phone] with questions * Ankita Tran RN - 06/01/2019 0651 EST RAPID RESPONSE NURSE ONLY 0633 Called by MR6 charge to administer first dose of IVPB of 5mg of metoprolol. 0637 MAGDA arrived, pt on tele. A/OX3. BP stable, HR 110's-140's. 0640 metoprolol infusing, VS stable. Call anand within reach 0700 Pt sleeping, laying flat (as per order). +snoring noted, Brief desats to 88%, place on 2L NC 0707 Med completed, pt tolerated well. Flushing through primary * Alicia Marroquin MD - 05/31/2019 1527 EST Neurosurgery Post Procedure Note Problems/ Low back pain Neurogenic claudication Prior C4 to T2 posterior instrumented fusion with decompression Procedures/ L1-L5 posterior decompression, L3-L5 instrumented fusion, repair of durotomy with nurolon and tisseal (Dr. Ahumada, 05/31/19) Subjective/ Groggy Mild incisional back pain No tingling or numbness No weakness No pain down legs Objective/ BP 125/85 Pulse 82 Temp 36.6 ??C (97.9 ??F) (Oral) Resp 20 SpO2 97% AO3 Extraocular movements intact Smile symmetric Tongue midline Shrug symmetric Facial sensation grossly intact No drift Drywall Taper 5/5 bl Elbow extension and flexion 5/5 bl Hip flexion 5/5 bl Knee flexion and extension 5/5 bl Dorsi and plantar flexion 5/5 bl Sensation grossly intact x 4 Assessment/ 74M w PMH significant for C4-T2 decompression and fusion (Dr. Ahumada, 12/2018) who presented to clinic with improvement in upper extremity symptoms but persistent low back pain and symptoms of neurogenic claudication in bilateral legs. Imaging demonstrates central stenosis L1-L5 with moderate degenerative scoliosis and grade 1 anterolisthesis L4-5, along with foraminal stenosis at L3- 4 and L4-5. Presents DOSA for decompression of L1-L5 and fusion of L3-L5. Postoperatively drowsy with mild incisional pain, no pain radiating into legs. Plan/ Floor Pain control Q4h neuro checks, vitals, I&O Regular diet PT/OT SpO2 >92% SBP goal 100-160 SCD/ROSA ELENA for DVT ppx Hold anticoagulants, antiplatelet agents Uprights when able Drain care Hwang dc once mobilizing HOB flat, Bedrest until tomorrow AM, Logroll okay ALICIA MARROQUIN MD Neurosurgery resident 05/31/2019 8:38 Page 0929 with questions documented in this encounter H&P Notes * Kirk Martinez MD - 05/31/2019 0700 EST The preoperative history and physical which was performed within 30 days of this procedure has been reviewed and the clinically appropriate elements of the physical examination have been repeated. There are no changes to the documented history and physical or if so such changes are documented below Kirk Martinez MD 05/31/2019 7:00 Source Note - T RAIL TURNER, SCAN 2 - 05/24/2019 16:30 EST documented in this encounter OR Notes * OR Surgeon - Caleb Ahumada MD - 05/31/2019 0000 EST OPERATIVE REPORT SERVICE DATE: 05/31/2019 SURGEON: Robi Ahumada MD PHARMACOGNOSY TEACHER: Good Small MD PROCEDURES: 1. Spinal image guidance. 2. Instrumented fusion L3-L5. 3. Laminectomy L1-L5. ANESTHESIA: General. COMPLICATIONS: None. PREOPERATIVE DIAGNOSES: Lumbar stenosis and spondylolisthesis. POSTOPERATIVE DIAGNOSES: Lumbar stenosis and spondylolisthesis. INDICATIONS: Mr Sam presents with spinal stenosis and deformity. He is brought to the operatingroom for the above procedures. FINDINGS: There were no unusual findings. Significant stenosis was encountered at all operated levels. The instrumentation used was the Synthes Matrix set. There was a pinhole durotomy on the left side at L3-L4. This was repaired with 2 Nurolon sutures and Tisseel glue. NARRATIVE: The patient was brought to the operating room and general endotracheal anesthesia induced. Preoperative antibiotics were given. The patient was placed prone on the Ry table. Lower back was prepped and draped in the usual sterile fashion. Subcutaneous tissues were infiltrated with 0.5% Marcaine and 1:200,000 epinephrine. A midline incision was made extending from L1 through L5. This was carried through the dorsal fascia and a subperiosteal dissection used to elevate the paraspinous muscles off of the spinous processes and laminae of the levels to be operated. Dissection proceeded around the pars intraarticularis of L3, L4, and L5, exposing the transverse processes and the mamillary processes. Intraoperative x-ray confirmed correct level. A Viajala reference array was placedon the L5 spinous process and a high resolution cone beam CT obtained with the O-arm. I then broke scrub and prep performed surgical planning on the Viajala workstation. I then scrubbed and reenteredthe field and tested points, confirming a satisfactory registration. Starting on the right side at L3, a transport pilot hole was drilled and a pedicle finder advanced under continuous image guidance down the barrel of the pedicle. The trajectory was sounded, tapped, and sounded again and found to be without breaches. An 8 x 60 mm screw was placed without incident. An identical procedure was performed on the left at L3, bilaterally at L4, and bilaterally at L5. At L4, we used 7 x 60 mm screws and at L5, we used 8 x 55 mm and 8 x 50 mm screws. Once all the screw shanks were in place, the reference array was removed. Leksell rongeurs were used to remove the spinous processes of L1 through L5. Laminectomy was performed by thinning the laminae and then using Kerrison ronge urs to complete the laminectomies. All bone was saved for later use as autograft. The ligamentum flavum was then undercut along the lateral gutters, allowing us to decompress the lateral recesses. On the right at L4-L5, despite removing all the adjacent bony and ligamentous elements, the dura did not reexpand to fill the space. We ensured that nerve roots were free of compression and then proceeded with placement of our autograft. The wound was irrigated with 3 L of pulse lavage containing ba citracin. The L3-L4 and L4-L5 facets were rongeured down and the transverse processes decorticated.Local autograft was divided between the lateral gutters. Screw heads were affixed to the screw shanks and screw rods secured with caps. The caps were tightened and torqued appropriately. As we were closing, we did note a pinhole durotomy on the left side at L3-L4 with an associated arachnoid bleb. This was repaired with 2 interrupted Nurolon sutures and Tisseel glue. There was no further leakage with Valsalva maneuver. We elected not to place a drain. The wound was closed in layerswith interrupted Vicryl suture and the skin closed with a running nylon. Sterile dressings were applied and the patient brought to the recovery area. Unless otherwise noted, there were no complications, no blood loss, no cultures obtained, no specimens removed, and no drains retained. S Rios Ahumada MD 02 58 PM / S Riso Ahumada MD cn Confirmation: [id number] Dictation ID: [id number] * Preprocedure Instructions - Tamy Corrales RN - 05/29/2019 1516 EST Nakul Ana Maria Sam has been instructed as follows regarding medication administration for the day of the scheduled procedure. Date of Surgery: 05/31/19 Instructions for Taking Medications Day of Surgery Medication Sig Last Dose Hold DOS Take DOS acetaminophen (TYLENOL ARTHRITIS PAIN) 650 mg CR tablet Take 650 mg by mouth as needed for Pain. yes apixaban (ELIQUIS) 5 mg tablet Take 5 mg by mouth 2 times daily. 05/28/19 atorvastatin (LIPITOR) 10 mg tablet Take 10 mg by mouth at bedtime as needed. hs calcium carbonate (TUMS) 200 mg calcium (500 mg) tablet,chewable Take 1 Tab by mouth every 4 hours as needed for Heartburn. hold docusate sodium (COLACE) 100 mg capsule Take 1 Cap by mouth 2 times daily. yes ergocalciferol, vitamin D2, (VITAMIN D ORAL) Take by mouth daily. hold metoprolol XL (TOPROL-XL) 25 mg tablet Take 25 mg by mouth at bedtime. hs Multivitamins with Minerals tablet tablet Take 1 Tab by mouth daily. 05/25/19 sennosides (SENEXON ORAL) Take by mouth 2 times daily. yes vit C/vit E ac/lut/copper/zinc (PRESERVISION LUTEIN ORAL) Take by mouth daily. 05/25/19 Pt has no questions on medication instructions. documented in this encounter Miscellaneous Notes * Plan of Care - Quinn Adrian RN - 06/06/2019 1036 EST Problem: Daily Care Plan Goals Goal: Care Plan Documentation Outcome: Completed Flowsheets (Taken 06/06/2019 0823) Area of Focus: Discharge Plan Goal This Shift: Pt to discharge to [facility] today Note: Nursing Discharge Note D: Patient [facility] A: Belongings collected and sent home with patient. Report [facility] K[facility] at [facility] Re[facility]. R: Pt left via wheelchair with his belongings and an information package for the facility. QUINN ADRIAN RN 06/06/2019 10:35 * Plan of Care - Vito Trejo RN - 06/06/2019 0034 EST Data: Pt POD #5 s/p L1-L5 posterior decompression, L3-L5 instrumented fusion, repair of durotomy. Pt c/o abdominal cramping, discomfort and nausea. Pt had +flatus, + Bowel sounds but no BM since 06/03. Pt unable to take PO medications d/t nausea. Pt also refused PO and IV anti nausea meds. Action: Encouraged to ambulate. Informed about taking bowel medication. Assisted pt OOB to bathroom. Pt had x 2 emesis and x 2 small BM as of now. notified and aware. Response: Pt now feeling better after BM. No nausea at this time, pt able to eat some cracker, gingerle and took PO tylenol for pain. Will continue to monitor. BP 135/81 (BP Cuff Location: Left arm, BP Patient Position: Semi fowlers) Pulse 83 Temp 36.9 ??C (98.4 ??F) (Tympanic) Resp 16 Ht 174 cm (68.5) Wt (!) 103.9 kg (229 lb) Comment: per 05/08/19 SpO2 99% BMI 34.31 kg/m?? VITO TREJO RN 06/06/2019 0:35 * Plan of Care - Hugo Mckeon RN - 06/05/2019 1426 EST Problem: Daily Care Plan Goals Goal: Care Plan Documentation Outcome: Met This Shift Flowsheets (Taken 06/04/2019 1057) Goal This Shift: manage pain/mobilize pt Note: Data: Pt POD #5 s/p L1-L5 posterior decompression, L3-L5 instrumented fusion, repair of durotomy. Rating pain @ 5/10 which pt states is primarily in his abdomen. C/o cramping, aching, GI upset. Pt states he also has some pain in bilateral upper thighs. Incision with sutures C/D/I. Action: Administered scheduled and prn medications (see MAR). Encouraged IS use and ambulation as tolerated. Provided assistance while ambulating. Response: Continues to c/o GI discomfort. Pain @ 5/10. Will continue to monitor and adjust interventions as necessary. HUGO MCKEON RN 06/05/2019 14:17 * Plan of Care - Yelena Owen RN - 06/05/2019 0450 EST Data: Patient admitted for decompression, fusion, and dural repair. Ambulating CG assist with frontwheel walker. Continues to have some pain but controlled with acetaminophen this shift. Requested not to be woken up for pain meds if sleeping. Action: Neuro VS. PRN pain meds. Response: Patient a/ox3. Able to make needs known. Patient anticipating discharge to home. No complaints at this time. YELENA OWEN RN 06/05/2019 4:50 * Plan of Care - Hugo Mckeon RN - 06/04/2019 1707 EST Problem: Daily Care Plan Goals Goal: Care Plan Documentation Outcome: Met This Shift Flowsheets (Taken 06/04/2019 1057) Goal This Shift: manage pain/mobilize pt Note: Data: Pt rating pain in mid low back and right hip @ 7/10. Incision C/D/I, open to air. Pt stated an MD removed the dressing this morning. Voiding. Multiple loose bm's today. Ambulating with partial assistance utilizing front wheeled walker. Action: Administered scheduled and prn medications (see MAR). Provided assistance with ambulation. Other non-pharmacological pain interventions include: rest, repositioning, and increased activity. Response: Pt states pain is well controlled @ 4/10. Tolerating ambulation well. Will continue to monitor and assist. HUGO MCKEON RN 06/04/2019 17:02 * Plan of Care - Laurita Garcia RN - 06/04/2019 0348 EST Problem: Daily Care Plan Goals Goal: Care Plan Documentation Flowsheets (Taken 06/03/20192048) Area of Focus: Sleep Goal This Shift: pain will be tolerable allowing pt to sleep Data: Pt POD4 for lumbar decompression/fusion with durotomy repair VSS, A&Ox3, Pain level 3-8/10 well controlled with po dilaudid, O21LNC stated goal of getting sleep tonight. Action: Medicated for pain as needed, clustered care, encouraged pt to make needs known, assisted in repositioning as needed. Response: Pt resting comfortably, call anand within reach, O2 saturation WNL. Will continue to monitor. LAURITA GARCIA RN 06/04/2019 3:48 * Plan of Care - Hugo Mckeon RN - 06/03/2019 1858 EST Problem: Daily Care Plan Goals Goal: Care Plan Documentation Outcome: Met This Shift Flowsheets (Taken 06/02/20192039 by Laurita Garcia RN) Goal This Shift: pain will be tolerable allowing Nakul to sleep Note: Data: Pt POD #3 s/p L1-L5 posterior decompression, L3-L5 instrumented fusion, repair of durotomy. Rating pain @ 8/10 in mid low back, post ambulation. Neuro checks intact. DRSG C/D/I. Voiding. +bm's today. Ambulating oob with contact guard assist utilizing front wheeled walker. Action: Administered scheduled and prn medications (see MAR). Encouraged ambulation as tolerated. Other non-pharmacological pain interventions include: repositioning, distraction, and rest. Response: Pt states pain is tolerable @ 5/10. Nauseous.1L fluid restriction d/t hyponatremia. Will continue to monitor and assist. HUGO MCKEON RN 06/03/2019 18:54 * Plan of Care - Laurita Garcia RN - 06/03/2019 0612 EST Problem: Daily Care Plan Goals Goal: Care Plan Documentation Flowsheets (Taken 06/02/20192039) Area of Focus: Sleep Goal This Shift: pain will be tolerable allowing Nakul to sleep Data: Pt POD3 for lumbar decompression/fusion with durotomy repair VSS, A&Ox3, Pain level 3-8/10 well controlled with po dilaudid, O21LNC stated goal of getting sleep tonight. Action: Medicated for pain as needed, clustered care, encouraged pt to make needs known, assisted in repositioning as needed. Response: Pt resting comfortably, call anand within reach, O2 saturation WNL. Will continue to monitor. LAURITA GARCIA RN 06/03/2019 6:12 * Plan of Care - Daniele Del Castillo RN - 06/02/2019 1441 EST Problem: Daily Care Plan Goals Goal: Care Plan Documentation Flowsheets (Taken 06/02/2019 0900) Area of Focus: Mobility Goal This Shift: pt will get up and OOB this shift Note: Data: Pt POD2 s/p spinal decomp and fusion. Pt up and OOB for breakfast and throughout shift. Used front wheel walker and assistx2. Able to get to commode over toilet using same method. Hwang removed, pt voiding using urinal. VSS. Neuros intact. Action: Assisted pt with mobility. Assessed pain, neuros, toleration to ambulating. Visited by PT. Response: Tolerated mobility fairly well, has most difficulty getting from sitting to standing position but is stable with walker and contact guard once up. No complaints of dizziness, SOB, or lightheadedness with ambulation. Will continue to monitor and mobilize. DANIELE DEL CASTILLO RN 06/02/2019 14:34 * Plan of Care - Daniele Del Castillo RN - 06/01/2019 1855 EST Problem: Daily Care Plan Goals Goal: Care Plan Documentation Flowsheets (Taken 06/01/2019 1600) Area of Focus: Pain/ Comfort Goal This Shift: pt will report tolerable pain Note: Data: Pt POD 1 from L1-L5 posterior decompression, L3-L5 instrumented fusion, and dural tear. Dry dressing covering surgical site, clean/dry/intact. Started shift on flat bedrest, HOB now at 55 degrees, raising 10 degrees Q1. Pt c/o 7- 9/10 pain throughout shift, located in upper back. HR remained in 100s-120s, irregular afib. New edema noted in left hand/arm noted around 1800. No BM today, pt reports flatus. Abdomen is firm. Action: Gave scheduled and prn pain meds (see MAR). Raised HOB Q1. Removed leaking PIV from left forearm, moved fluids to right hand PIV. Encouraged IS. Monitored VS and neuro checks. Notified provider about new finding of edema. Gave colace and placed pt on bedpan. Response: Pt continues to report 7-9/10 pain, no grimaces noted with rest but some moans and grimacing r/t pain when moving HOB. Still no BM. DANIELE DEL CASTILLO RN 06/01/2019 18:38 * Plan of Care - Paola Dixon RN - 06/01/2019 0321 EST Data: Assumed care of pt at 2300. Pt S/P POD 1 L1-L5 decomp, L3-L5 fusion, and repair of durotomy. +CSMTs. Pt c/o of heartburn and nausea. +flatus, distended abdomen. HR irregular 110-130s (a-fib). Pt rating pain 10/10. Goal is rest and pain control. Action: Provider notified of HR, nausea and heartburn. Orders received and pt treated per eMAR. Pt also given 500 ml plasmalyte bolus. Nestor on, call light within reach. Response: Pt reports relief from heartburn and nausea. Pt currently resting comfortably in bed, eyes closed. RR WNL. HR 100-110s. Will continue to monitor. PAOLA DIXON RN 06/01/2019 3:21 * Plan of Care - Nichlo Nolasco RN - 05/31/2019 1852 EST Data: pt arrived from PACU @ 1800 after L1-5 decomp and L3-5 fusion; dry dressing w/ some strike-through; dural tear; HOB flat until afternoon of 06/01; IVF 75 plasmalyte; 3L O2; nausea and discomfortto ABD; able to log roll partial assistance; hwang draining clear and yellow Action: oriented pt to unit and to room; completed assessment; pt declined any food @ this time; pain moderate, but managed; vitals WDL; weaned to RA; repositioned Response: pt resting in bed w/ call anand close; will continue to monitor and assess pt needs NICHOL NOLASCO RN 05/31/2019 18:52 * Brief Op Note - Good Small MD - 05/31/2019 1515 EST BRIEF OP NOTE PRE-OP DIAGNOSIS = Lumbar stenosis, L4-L5 spondylolisthesis POST-OP DIAGNOSIS = same as above PROCEDURE = L1-L5 posterior decompression, L3-L5 instrumented fusion, repair of durotomy with nurolon and tisseal SURGEON = Rios Ahumada MD PHARMACOGNOSY TEACHER = Good Small MD ANESTHESIA = GETA COMPLICATIONS = Durotomy FINDINGS = Bony and ligamentous stenosis EBL = 450 IVF = See anesthesia record UOP = See anesthesia record SPECIMENS/CULTURES = None DRAINS = None SKIN = Nylon DISPO = PACU then Floor HOB flat, Bedrest until tomorrow AM, Logroll okay Good Small MD Neurosurgery resident 05/31/2019 15:19 Page [phone] with questions documented in this encounter Plan of Treatment Scheduled Referrals Name Type Priority Associated Diagnoses Orde r Schedule AMB CONS/FOLLOW UP HOME HEALTH SERVICES Outpatient Referral Routine Neurogenic claudication Ordered: 06/04/2019 AMB CONS/FOLLOW UP NEUROSURGERY Outpatient Referral Routine Neurogenic claudication Ordered: 06/04/2019 AMB CONS/FOLLOW UP PRIMARY CARE PHYSICIAN Outpatient Referral Routine Hyponatremia Ordered: 06/06/2019 documented as of this encounter Procedures Procedure Name Priority Date/Time Associated Diagnosis Comments ECG REPORT - SCANNED 06/09/2019 9:05 EST COMPLETE BLOOD COUNT AND DIFFERENTIAL Routine 06/06/2019 6:41 EST ELECTROLYTES Routine 06/06/2019 6:41 EST ECG REPORT - SCANNED 06/05/2019 14:40 EST COMPLETE BLOOD COUNT AND DIFFERENTIAL Routine 06/03/2019 5:29 EST BUN Routine 06/03/2019 5:29 EST CREATININE Routine 06/03/2019 5:29 EST ELECTROLYTES Routine 06/03/2019 5:29 EST XR LUMBAR SPINE 2-3 VIEWS Routine 06/02/2019 13:11 EST COMPLETE BLOOD COUNT AND DIFFERENTIAL Routine 06/02/2019 5:35 EST BUN Routine 06/02/2019 5:35 EST CREATININE Routine 06/02/2019 5:35 EST ELECTROLYTES Routine 06/02/2019 5:35 EST COMPLETE BLOOD COUNT AND DIFFERENTIAL Routine 06/01/2019 5:24 EST BUN Routine 06/01/2019 5:24 EST CREATININE Routine 06/01/2019 5:24 EST ELECTROLYTES Routine 06/01/2019 5:24 EST XR LUMBAR SPINE 1 VIEW Routine 05/31/2019 14:59 EST FL C-ARM 0-1 HOUR Routine 05/31/2019 10:28 EST XR LUMBAR SPINE 2-3 VIEWS Routine 05/31/2019 10:27 EST XR LUMBAR SPINE 1 VIEW Routine 05/31/2019 8:45 EST XR LUMBAR SPINE 1 VIEW STAT 05/31/2019 8:11 EST INSERTION, ALLOGRAFT, STRUCTURAL, FOR SPINE SURGERY 05/31/2019 7:27 EST Spinal stenosis, lumbar region with neurogenic claudication Special Needs O-Arm, Stealth, 5 hours INSTRUMENTATION, SPINE, SEGMENTAL, 3-6 LEVELS, POSTERIOR APPROACH 05/31/2019 7:27 EST Spinal stenosis, lumbar region with neurogenic claudication Special Needs O-Arm, Stealth, 5 hours LAMINECTOMY, SPINE, LUMBAR, 3 OR MORE LEVELS, WITHOUT FACETECTOMY, FORAMINOTOMY, OR DISCECTOMY 05/31/2019 7:27 EST Spinal stenosis, lumbar region with neurogenic claudication Special Needs O-Arm, Stealth, 5 hours FUSION, SPINE, 2 OR MORE LEVELS, POSTERIOR APPROACH 05/31/2019 7:27 EST Spinal stenosis, lumbar region with neurogenic claudication Special Needs O-Arm, Stealth, 5 hours ARTHRODESIS, POSTEROLATERAL TECHNIQUE > 1 LEVEL 05/31/2019 7:27 EST Spinal stenosis, lumbar region with neurogenic claudication Special Needs O-Arm, Stealth, 5 hours TYPE AND SCREEN STAT 05/31/2019 6:35 EST documented in this encounter Results * ECG REPORT - SCANNED (06/09/2019 9:05 EST) 06/09/2019 9:05 EST Scan 2 Tube Backer PROCEDURE/MINOR JACKY GICAL ORDERABLES * (ABNORMAL) COMPLETE BLOOD COUNT AND DIFFERENTIAL (06/06/2019 6:41 EST) WBC 6.40 4.00 - 10.40 K/cmm 06/06/2019 7:01 [facility] RBC 2.72(L) 4.36 - 5.78 M/cmm 06/06/2019 7:01 [facility] Hemoglobin 8.3(L) 13.8 - 17.3 gm/dL 06/06/2019 7:01 [facility] HCT 24.1(L) 39.5 - 50.2 % 06/06/2019 7:01 [facility] MCV 89 81 - 95 fl 06/06/2019 7:01 [facility] MCH 30.5 27.6 - 33.0 pg 06/06/2019 7:01 [facility] MCHC 34.4 32.8 - 36.4 gm/dL 06/06/2019 7:01 [facility] RDW-CV 13.9 <14.2 % 06/06/2019 7:01 [facility] RDW-SD 44.9 <46.0 fl 06/06/2019 7:01 [facility] PLT 269 141 - 377 K/cmm 06/06/2019 7:01 [facility] MPV 9.6 9.5 - 12.7 fl 06/06/2019 7:01 [facility] % Neutrophils 64.5 % 06/06/2019 7:01 [facility] % Lymphocytes 19.8 % 06/06/2019 7:01 [facility] % Monocytes 13.3 % 06/06/2019 7:01 [facility] % Eosinophils 1.3 % 06/06/2019 7:01 [facility] % Basophils 0.2 % 06/06/2019 7:01 [facility] % Immature Grans 0.9 % 06/06/20 19 7:01 [facility] Absolute Neutrophils 4.13 2.20 - 8.85 K/cmm 06/06/2019 7:01 [facility] Absolute Lymphocytes 1.27 1.09 - 3.30 K/cmm 06/06/2019 7:01 [facility] Absolute Monocytes 0.85(H) 0.10 - 0.80 K/cmm 06/06/2019 7:01 [facility] Absolute Eosinophils 0.08 0.03 - 0.61 K/cmm 06/06/2019 7:01 [facility] ABS Basophils 0.01 0.01 - 0.11 K/cmm 06/06/2019 7:01 [facility] Absolute Immature Grans 0.06 0.00 - 0.06 K/cmm 06/06/2019 7:01 [facility] Type of Differential: Auto 06/06/2019 7:01 [facility] Blood VENOUS BLOOD / Unknown Venipuncture / Unknown 06/06/2019 6:41 EST 06/06/2019 6:54 EST Murray Gomes MD PACKAGES & DNA PROBE ORDERABLES Performing Organization Address City/[facility] Co de Phone Number [facility] [address] [place] [address] * (ABNORMAL) ELECTROLYTES (06/06/2019 6:41 EST) Sodium 134(L) 136 - 145 mEq/L 06/06/2019 7:19 [facility] Potassium 3.6 3.5 - 5.0 mEq/L 06/06/2019 7:19 [facility] Chloride 99 96 - 110 mEq/L 06/06/2019 7:19 [facility] CO2 Total 28 22 - 32 mEq/L 06/06/2019 7:19 [facility] Blood VENOUS BLOOD / Unknown Venipuncture / Unknown 06/06/2019 6:41 EST 06/06/2019 6:54 EST Murray Gomes MD CHEMISTRY & BLO OD GAS ORDERABLES Performing Organization Address City/[facility]/ZIP Co de Phone Number [facility] [address] [place] [address] * ECG REPORT - SCANNED (06/05/2019 14:40 EST) 06/05/2019 14:4 0 EST Scan 2 Tube Backer PROCEDURE/MINOR JACKY GICAL ORDERABLES * (ABNORMAL) COMPLETE BLOOD COUNT AND DIFFERENTIAL (06/03/2019 5:29 EST) WBC 10.99(H) 4.00 - 10.40 K/cmm 06/03/2019 6:24 [facility] RBC 2.98(L) 4.36 - 5.78 M/cmm 06/03/2019 6:24 [facility] Hemoglobin 8.8(L) 13.8 - 17.3 gm/dL 06/03/2019 6:24 [facility] HCT 26.2(L) 39.5 - 50.2 % 06/03/2019 6:24 [facility] MCV 88 81 - 95 fl 06/03/2019 6:24 [facility] MCH 29.5 27.6 - 33.0 pg 06/03/2019 6:24 [facility] MCHC 33.6 32.8 - 36.4 gm/dL 06/03/2019 6:24 [facility] RDW-CV 13.5 <14.2 % 06/03/2019 6:24 [facility] RDW-SD 43.8 <46.0 fl 06/03/2019 6:24 [facility] PLT 149 141 - 377 K/cmm 06/03/2019 6:24 [facility] MPV 10.9 9.5 - 12.7 fl 06/03/2019 6:24 [facility] % Neutrophils 78.6 % 06/03/2019 6:24 [facility] % Lymphocytes 12.5 % 06/03/2019 6:24 [facility] % Monocytes 7.8 % 06/03/2019 6:24 [facility] % Eosinophils 0.4 % 06/03/2019 6:24 [facility] % Basophils 0.1 % 06/03/2019 6:24 [facility] % Immature Grans 0.6 % 06/03/20 19 6:24 [facility] Absolute Neutrophils 8.64 2.20 - 8.85 K/cmm 06/03/2019 6:24 [facility] Absolute Lymphocytes 1.37 1.09 - 3.30 K/cmm 06/03/2019 6:24 [facility] Absolute Monocytes 0.86(H) 0.10 - 0.80 K/cmm 06/03/2019 6:24 [facility] Absolute Eosinophils 0.04 0.03 - 0.61 K/cmm 06/03/2019 6:24 [facility] ABS Basophils 0.01 0.01 - 0.11 K/cmm 06/03/2019 6:24 [facility] Absolute Immature Grans 0.07(H) 0.00 - 0.06 K/cmm 06/03/2019 6:24 EST [facility] Type of Differential: Auto 06/03/2019 6:24 EST [facility] Blood VENOUS BLOOD / Unknown Venipuncture / Unknown 06/03/2019 5:29 EST 06/03/2019 6:11 EST Good Small MD PACKAGES & DNA PROB E ORDERABLES Performing Organization Address [facility] Phone Number [facility] [address] [place] [address] * (ABNORMAL) CREATININE (06/03/2019 5:29 EST) Creatinine 0.64(L) 0.66 - 1.25 mg/dL 06/03/2019 6:49 EST [facility] eGFR 95 >60 mL/min/1.7 3m2 06/03/2019 6:49 EST [facility] Comment:eGFR calculated usin g CKD-EPI equation for non- Americans. Multiply eGFR by 1.16 for patients. Blood VENOUS BLOOD / Unknown Venipuncture / Unknown 06/03/2019 5:29 EST 06/03/2019 6:19 EST Good Small MD CHEMISTRY & BLOOD G ORDERABLES Performing Organization Address [facility] Co de Phone Number [facility] [address] [place] [address] * BUN (06/03/2019 5:29 EST) BUN 15 10 - 26 mg/dL 06/03/2019 6:49 EST [facility] Blood VENOUS BLOOD / Unknown Venipuncture / Unknown 06/03/2019 5:29 EST 06/03/2019 6:19 EST Good Small MD CHEMISTRY & BLOOD G ORDERABLES Performing Organization Address [facility] Co de Phone Number [facility] [address] [place] [address] * (ABNORMAL) ELECTROLYTES (06/03/2019 5:29 EST) Sodium 128(L) 136 - 145 mEq/L 06/03/2019 6:49 EST [facility] Potassium 3.6 3.5 - 5.0 mEq/L 06/03/2019 6:49 EST [facility] Chloride 95(L) 96 - 110 mEq/L 06/03/2019 6:49 EST [facility] CO2 Total 30 22 - 32 mEq/L 06/03/2019 6:49 EST [facility] Blood VENOUS BLOOD / Unknown Venipuncture / Unknown 06/03/2019 5:29 EST 06/03/2019 6:19 EST Good Small MD CHEMISTRY & BLOOD G ORDERABLES Performing Organization Address City/State/[facility] Co de Phone Number [facility] [address] [place] [address] * XR LUMBAR SPINE 2-3 VIEWS (06/02/2019 13:11 EST) Anatomical Region Laterality Modality Spine Computed Radiogr aphy 06/02/2019 13:4 4 EST Narrative 06/02/2019 13:44 EST XR LUMBAR SPINE 2-3 VIEWS ??06/02/2019 1:06 PM Clinical History/Comments: sp lumbar fusion for claudication; upright ap and lateral Comparison: Radiographs from one day prior. Technique: Upright AP and lateral views the lumbar spine. ?? Findings: Redemonstrated is posterior spinal fusion hardware from L3 to L5 with no evidence of screw loosening or hardware failure. There has been no significant change in alignment compared to prior radiograph. Partially imaged are multiple mildly distended gas filled loops of bowel, which could represent an ileus in the postoperative setting. Multilevel discogenic degenerative changes and facet arthropathy are seen throughout the lumbar spine. Bones are diffusely demineralized. I have personally reviewed the images and the above interpretation and agree with the findings. Procedure Note Shravan Marroquin MD - 06/02/2019 XR LUMBAR SPINE 2-3 VIEWS 06/02/2019 1:06 PM Clinical History/Comments: sp lumbar fusion for claudication; upright apand lateral Comparison: Radiographs from one day prior. Technique: Upright AP and lateral views the lumbar spine. Findings: Redemonstrated is posterior spinal fusion hardware from L3 to L5with no evidence of screw loosening or hardware failure. There has been nosignificant change in alignment compared to prior radiograph. Partiallyimaged are multiple mildly distended gas filled loops of bowel, whichcould represent an ileus in the postoperative setting. Multileveldiscogenic degenerative changes and facet arthropathy are seen throughoutthe lumbar spine. Bones are diffusely demineralized. I have personally reviewed the images and the above interpretation andagree with the findings. Alicia Marroquin MD IMG DIAGNOSTIC IMAGI NG ORDERABLES * (ABNORMAL) COMPLETE BLOOD COUNT AND DIFFERENTIAL (06/02/2019 5:35 EST) WBC 13.38(H) 4.00 - 10.40 K/cmm 06/02/2019 6:35 [facility] RBC 3.22(L) 4.36 - 5.78 M/cmm 06/02/2019 6:35 [facility] Hemoglobin 9.7(L) 13.8 - 17.3 gm/dL 06/02/2019 6:35 [facility] HCT 28.7(L) 39.5 - 50.2 % 06/02/2019 6:35 [facility] MCV 89 81 - 95 fl 06/02/2019 6:35 [facility] MCH 30.1 27.6 - 33.0 pg 06/02/2019 6:35 [facility] MCHC 33.8 32.8 - 36.4 gm/dL 06/02/2019 6:35 [facility] RDW-CV 13.9 <14.2 % 06/02/2019 6:35 [facility] RDW-SD 45.2 <46.0 fl 06/02/2019 6:35 [facility] PLT 143 141 - 377 K/cmm 06/02/2019 6:35 [facility] MPV 11.2 9.5 - 12.7 fl 06/02/2019 6:35 [facility] % Neutrophils 80.3 % 06/02/2019 6:35 [facility] % Lymphocytes 10.3 % 06/02/2019 6:35 [facility] % Monocytes 8.7 % 06/02/2019 6:35 [facility] % Eosinophils 0.1 % 06/02/2019 6:35 [facility] % Basophils 0.1 % 06/02/2019 6:35 [facility] % Immature Grans 0.5 % 06/02/20 19 6:35 [facility] Absolute Neutrophils 10.73(H) 2.20 - 8.85 K/cmm 06/02/2019 6:35 [facility] Absolute Lymphocytes 1.38 1.09 - 3.30 K/cmm 06/02/2019 6:35 [facility] Absolute Monocytes 1.17(H) 0.10 - 0.80 K/cmm 06/02/2019 6:35 [facility] Absolute Eosinophils 0.01(L) 0.03 - 0.61 K/cmm 06/02/2019 6:35 [facility] ABS Basophils 0.02 0.01 - 0.11 K/cmm 06/02/2019 6:35 [facility] Absolute Immature Grans 0.07(H) 0.00 - 0.06 K/cmm 06/02/2019 6:35 [facility] Type of Differential: Auto 06/02/2019 6:35 [facility] Blood VENOUS BLOOD / Unknown Venipuncture / Unknown 06/02/2019 5:35 EST 06/02/2019 6:21 EST Good Small MD PACKAGES & DNA PROB E ORDERABLES [facility] [address] [place] [address] * CREATININE (06/02/2019 5:35 EST) Creatinine 0.84 0.66 - 1.25 mg/dL 06/02/2019 6:55 [facility] eGFR 85 >60 mL/min/1.7 3m2 06/02/2019 6:55 [facility] Comment:eGFR calculated tio plascencia CKD-EPI equation for non- Americans. Multiply eGFR by 1.16 for patients. Blood VENOUS BLOOD / Unknown Venipuncture / Unknown 06/02/2019 5:35 EST 06/02/2019 6:21 EST Good Small MD CHEMISTRY & BLOOD G ORDERABLES Performing Organization Address [facility] Co de Phone Number [facility] [address] [place] [address] * BUN (06/02/2019 5:35 EST) BUN 16 10 - 26 mg/dL 06/02/2019 6:55 EST [facility] Blood VENOUS BLOOD / Unknown Venipuncture / Unknown 06/02/2019 5:35 EST 06/02/2019 6:21 EST Good Small MD CHEMISTRY & BLOOD G ORDERABLES Performing Organization Address [facility] Phone Number [facility] [address] [place] [address] * (ABNORMAL) ELECTROLYTES (06/02/2019 5:35 EST) Sodium 129(L) 136 - 145 mEq/L 06/02/2019 6:55 [facility] Potassium 4.0 3.5 - 5.0 mEq/L 06/02/2019 6:55 [facility] Chloride 96 96 - 110 mEq/L 06/02/2019 6:55 [facility] CO2 Total 28 22 - 32 mEq/L 06/02/2019 6:55 [facility] Blood VENOUS BLOOD / Unknown Venipuncture / Unknown 06/02/2019 5:35 EST 06/02/2019 6:21 EST Good Small MD CHEMISTRY & BLOOD G ORDERABLES Performing Organization Address [facility] Co de Phone Number [facility] [address] [place] [address] * (ABNORMAL) COMPLETE BLOOD COUNT AND DIFFERENTIAL (06/01/2019 5:24 EST) WBC 10.88(H) 4.00 - 10.40 K/cmm 06/01/2019 6:02 [facility] RBC 3.43(L) 4.36 - 5.78 M/cmm 06/01/2019 6:02 [facility] Hemoglobin 10.3(L) 13.8 - 17.3 gm/dL 06/01/2019 6:02 [facility] HCT 30.5(L) 39.5 - 50.2 % 06/01/2019 6:02 [facility] MCV 89 81 - 95 fl 06/01/2019 6:02 [facility] MCH 30.0 27.6 - 33.0 pg 06/01/2019 6:02 [facility] MCHC 33.8 32.8 - 36.4 gm/dL 06/01/2019 6:02 [facility] RDW-CV 14.3(H) <14.2 % 06/01/2019 6:02 [facility] RDW-SD 46.1(H) <46.0 fl 06/01/2019 6:02 [facility] PLT 134(L) 141 - 377 K/cmm 06/01/2019 6:02 [facility] MPV 11.4 9.5 - 12.7 fl 06/01/2019 6:02 [facility] % Neutrophils 75.8 % 06/01/2019 6:02 [facility] % Lymphocytes 12.2 % 06/01/2019 6:02 [facility] % Monocytes 11.5 % 06/01/2019 6:02 [facility] % Eosinophils 0.0 % 06/01/2019 6:02 [facility] % Basophils 0.1 % 06/01/2019 6:02 [facility] % Immature Grans 0.4 % 06/01/20 19 6:02 [facility] Absolute Neutrophils 8.25 2.20 - 8.85 K/cmm 06/01/2019 6:02 [facility] Absolute Lymphocytes 1.33 1.09 - 3.30 K/cmm 06/01/2019 6:02 [facility] Absolute Monocytes 1.25(H) 0.10 - 0.80 K/cmm 06/01/2019 6:02 [facility] Absolute Eosinophils 0.00(L) 0.03 - 0.61 K/cmm 06/01/2019 6:02 [facility] ABS Basophils 0.01 0.01 - 0.11 K/cmm 06/01/2019 6:02 [facility] Absolute Immature Grans 0.04 0.00 - 0.06 K/cmm 06/01/2019 6:02 [facility] Type of Differential: Auto 06/01/2019 6:02 [facility] Blood VENOUS BLOOD / Unknown Venipuncture / Unknown 06/01/2019 5:24 EST 06/01/2019 5:51 EST Good Small MD PACKAGES & DNA PROB E ORDERABLES Performing Organization Address [facility] de Phone Number [facility] [address] [place] [address] * CREATININE (06/01/2019 5:24 EST) Creatinine 0.79 0.66 - 1.25 mg/dL 06/01/2019 6:18 [facility] eGFR 87 >60 mL/min/1.7 3m2 06/01/2019 6:18 [facility] Comment:eGFR calculated tio plascencia CKD-EPI equation for non- Americans. Multiply eGFR by 1.16 for patients. Blood VENOUS BLOOD / Unknown Venipuncture / Unknown 06/01/2019 5:24 EST 06/01/2019 5:51 EST Good Small MD CHEMISTRY & BLOOD G ORDERABLES Performing Organization Address [facility] Co de Phone Number [facility] [address] [place] [address] * BUN (06/01/2019 5:24 EST) BUN 15 10 - 26 mg/dL 06/01/2019 6:18 [facility] Blood VENOUS BLOOD / Unknown Venipuncture / Unknown 06/01/2019 5:24 EST 06/01/2019 5:51 EST Good Small MD CHEMISTRY & BLOOD G ORDERABLES Performing Organization Address [facility] de Phone Number [facility] [address] [place] [address] * (ABNORMAL) ELECTROLYTES (06/01/2019 5:24 EST) Sodium 134(L) 136 - 145 mEq/L 06/01/2019 6:18 EST [facility] Potassium 4.1 3.5 - 5.0 mEq/L 06/01/2019 6:18 [facility] Chloride 102 96 - 110 mEq/L 06/01/2019 6:18 [facility] CO2 Total 27 22 - 32 mEq/L 06/01/2019 6:18 EST [facility] Blood VENOUS BLOOD / Unknown Venipuncture / Unknown 06/01/2019 5:24 EST 06/01/2019 5:51 EST Good Small MD CHEMISTRY & BLOOD G ORDERABLES Performing Organization Address [facility] de Phone Number [facility] [address] [place] [address] * XR LUMBAR SPINE 1 VIEW (05/31/2019 14:59 EST) Anatomical Region Laterality Modality Spine Computed Radiogr aphy 06/01/2019 10:3 8 EST Impressions 06/01/2019 10:38 EST Completed posterior decompression and L3-L5 posterior instrumented fusion without evidence of significant hardware malpositioning or failure. No unexpected radiopaque foreign bodies. Narrative 06/01/2019 10:38 EST LUMBAR SPINE, 1 VIEW HISTORY: L3-L5 fusion postoperative assessment. TECHNIQUE: Single lateral portable radiograph of the lumbar spine. COMPARISON: Lumbar spine radiographs 11/22/2018. FINDINGS: Completed posterior decompression and L3-L5 posterior instrumented fusion with vertical stabilization rods and pedicle screws. There is no evidence of significant hardware malpositioning or failure. No unexpected radiopaque foreign bodies demonstrated. Sagittal alignment has not significantly changed compared to prior radiographs of 11/22/2018. Degenerative changes and diffuse bony demineralization are again demonstrated. Atherosclerotic calcifications are present in the abdominal aorta. Procedure Note Kirk Gutierrez MD - 06/01/2019 LUMBAR SPINE, 1 VIEW HISTORY: L3-L5 fusion postoperative assessment. TECHNIQUE: Single lateral portable radiograph of the lumbar spine. COMPARISON: Lumbar spine radiographs 11/22/2018. FINDINGS: Completed posterior decompression and L3-L5 posterior instrumented fusionwith vertical stabilization rods and pedicle screws. There is no evidenceof significant hardware malpositioning or failure. No unexpectedradiopaque foreign bodies demonstrated. Sagittal alignment has notsignificantly changed compared to prior radiographs of 11/22/2018.Degenerative changes and diffuse bony demineralization are againdemonstrated. Atherosclerotic calcifications are present in the abdominalaorta. IMPRESSION Completed posterior decompression and L3-L5 posterior instrumented fusionwithout evidence of significant hardware malpositioning or failure. Nounexpected radiopaque foreign bodies. Caleb CARSON DIAGNOSTIC IM AGING ORDERABLES * FL C-ARM 0-1 HOUR (05/31/2019 10:28 EST) Caleb CARSON OTHER IMAGING ORDERABLES * XR LUMBAR SPINE 2-3 VIEWS (05/31/2019 10:27 EST) Narrative 07/14/2019 10:29 EST This is a non-reportable exam. Caleb CARSON [facility] ORDERABLES * XR LUMBAR SPINE 1 VIEW (05/31/2019 8:45 EST) Anatomical Region Laterality Modality Spine Computed Radiogr aphy 05/31/2019 9:03 EST Impressions 05/31/2019 9:[address] Hancock reviewed the findings with Dr. Ahumada on 05/31/2019 at 8:52 AM. I have personally reviewed the images and the above interpretation and agree with the findings. Narrative 05/31/2019 9:03 EST LUMBAR SPINE, 1 VIEW HISTORY: Level check. TECHNIQUE: Single lateral intraoperative portable radiograph of the lumbar spine. COMPARISON: Lumbar spine MRI 09/16/2018. FINDINGS: The distal aspect of a probe projects over the L3 pars interarticularis. The distal aspect of a clamp projects over the L3 spinous process, directed towards the L3- L4 intervertebral disc space. Posterior surgical soft tissue defect and surgical sponge markers are noted. Procedure Note Kirk Gutierrez MD - 05/31/2019 LUMBAR SPINE, 1 VIEW HISTORY: Level check. TECHNIQUE: Single lateral intraoperative portable radiograph of the lumbarspine. COMPARISON: Lumbar spine MRI 09/16/2018. FINDINGS: The distal aspect of a probe projects over the L3 pars interarticularis.The distal aspect of a clamp projects over the L3 spinous process,directed towards the L3- L4 intervertebral disc space. Posterior surgicalsoft tissue defect and surgical sponge markers are noted. IMPRESSION Intraoperative localization. Dr. Hancock reviewed the findings with Dr. Ahumada on 05/31/2019 at 8:52 AM. I have personally reviewed the images and the above interpretation andagree with the findings. Caleb Ahumada MD IMG DIAGNOSTIC IM AGING ORDERABLES * XR LUMBAR SPINE 1 VIEW (05/31/2019 8:11 EST) Anatomical Region Laterality Modality Spine Computed Radiogr aphy 05/31/2019 8:29 EST Impressions 05/31/2019 8:[address] Wang reviewed these findings with Dr. Ahumada on 05/31/2019 at 8:18 AM. I have personally reviewed the images and the above interpretation and agree with the findings. Narrative 05/31/2019 8:29 EST LUMBAR SPINE, 1 VIEW HISTORY: Level check. TECHNIQUE: Single lateral intraoperative portable radiograph of the lumbar spine. COMPARISON: Lumbar spine radiographs 11/22/2018. Lumbar spine MRI 09/16/2018. FINDINGS: A spinal needle projects over the posterior soft tissues, its tip along the posterior margin of the L2 spinous process, directed towards the L3 pedicles and L3 vertebral body. Procedure Note Kirk Gutierrez MD - 05/31/2019 LUMBAR SPINE, 1 VIEW HISTORY: Level check. TECHNIQUE: Single lateral intraoperative portable radiograph of the lumbarspine. COMPARISON: Lumbar spine radiographs 11/22/2018. Lumbar spine MRI09/16/2018. FINDINGS: A spinal needle projects over the posterior soft tissues, its tip alongthe posterior margin of the L2 spinous process, directed towards the H2mryhpiab and L3 vertebral body. IMPRESSION Intraoperative localization Dr. Wang reviewed these findings with Dr. Ahumada on 05/31/2019 at 8:18AM. I have personally reviewed the images and the above interpretation andagree with the findings. Caleb Ahmuada MD IMG DIAGNOSTIC IM AGING ORDERABLES * TYPE AND SCREEN (05/31/2019 6:35 EST) ABO A 05/31/2019 8:35 EST [facility] Rh Factor Positive 05/31/2019 8:35 EST [facility] Antibody Screen Negative 05/31/2019 8:35 EST [facility] Specimen Expires: 06/03/2019 @ 23:59 05/31/2019 8:35 EST [facility] Blood VENOUS BLOOD / Unknown Venipuncture / Unknown 05/31/2019 6:35 EST 05/31/2019 6:35 EST Chencho Tarango MD BLOOD BANK TESTS Performing Organization Address City/State/[facility] Co de Phone Number [facility] [address] [place] [address] documented in this encounter Visit Diagnoses Diagnosis Spinal stenosis, lumbar region with neurogenic claudication- Primary Neurogenic claudication Spinal stenosis, lumbar region, with neurogenic claudication Hyponatremia Hyposmolality and/or hyponatremia documented in this encounter Admitting Diagnoses Diagnosis Spinal stenosis, lumbar region with neurogenic claudication documented in this encounter Administered Medications Inactive Administered Medications - up to 3 most recent administrations Medication Order MAR Action Action Date Dose Rate Site acetaminophen (OFIRMEV) IV solution 1,000 mg 1,000 mg, intravenous, NOW X1, 1 dose, On Wed05/31/19 at 1600, Is the patient NPO? If No, state reason why oral acetaminophen cannot be used in Comment field. Yes, Is this patient nothing by rectum? If No, state why rectal acetaminophen cannot be used in the Comment field. Yes, Are NSAIDs contraindicated in this patient? Yes, Is the patient in ED, PACU or ICU? Yes, Routine Given 05/31/2019 15:57 EST 1,000 mg acetaminophen (TYLENOL) solution unit dose cup 650 mg 650 mg, per ng tube, EVERY 4 HOURS PRN, Starting on Wed05/31/19 at 1520, Until Wed06/06/19 at 1242, Pain, Routine, Release acetaminophen (TYLENOL) suppository 650 mg 650 mg, rectal, EVERY 4 HOURS PRN, Starting on Wed05/31/19 at 1520, Until Wed06/06/19 at 1242, Pain, Routine, Release acetaminophen (TYLENOL) tablet 650 mg 650 mg, oral, EVERY 4 HOURS PRN, Starting on Wed05/31/19 at 1520, Until Wed06/06/19 at 1242, Pain, Routine, Release Given 06/06/2019 0:08 EST 325 mg Given 06/05/2019 14:13 EST 325 mg Given 06/05/2019 10:25 EST 650 mg atorvastatin (LIPITOR) tablet 10 mg 10 mg, oral, AT BEDTIME, First dose on Verna 06/01/19 at 2100, Until Discontinued, Routine Given 06/06/2019 0:22 EST 10 mg Given 06/04/2019 20:18 EST 10 mg Given 06/03/2019 20:27 EST 10 mg benzocaine-menthol (CEPACOL) 15-3.6 mg per lozenge 1 Lozenge 1 Lozenge, buccal, PRN, Starting on Wed05/31/19 at 2312, Until Wed06/06/19 at 1242, Pain, Routine Given 05/31/2019 23:17 EST 1 Lozenge bisacodyl (DULCOLAX) suppository 10 mg 10 mg, rectal, EVERY 48 HOURS PRN, Starting on Wed06/02/19 at 0000, Until Wed06/06/19 at 1242, Constipation, Routine, Release Given 06/05/2019 18:33 EST 10 mg Given 06/03/2019 9:57 EST 10 mg calcium carbonate (TUMS) 200 mg calcium (500 mg) per chewable tablet tablet,chewable 1 Tab 1 Tablet, oral, EVERY 4 HOURS PRN, Starting on Wed05/31/19 at 1523, Until Wed06/06/19 at 1242, Heartburn, Routine, Release Given 05/31/2019 18:18 EST 1 Tablet diphenhydrAMINE (BENADRYL) injection 12.5 mg 12.5 mg, intravenous, PRN, 1 dose, Starting on Wed05/31/19 at 1532, Until Wed05/31/19 at 1608, nausea, Routine, Recovery (only) Given 05/31/2019 16:08 EST 12.5 mg docusate sodium (COLACE) capsule 100 mg 100 mg, oral, 2 TIMES DAILY, First dose on Wed05/31/19 at 2100, Until Discontinued, Routine, Release Given 06/01/2019 21:11 EST 100 mg Given 06/01/2019 10:33 EST 100 mg docusate sodium (COLACE) capsule 200 mg 200 mg, oral, 2 TIMES DAILY, First dose (after last modification) on Wed06/02/19 at 0900, Until Discontinued, Routine, Release Given 06/03/2019 20:27 EST 200 mg Given 06/03/2019 9:57 EST 200 mg Given 06/02/2019 20:42 EST 200 mg electrolyte-A (PLASMALYTE-A) bolus 500 mL 500 mL, intravenous, NOW X1, 1 dose, On Wed06/01/19 at 0300 Given 06/01/2019 2:35 EST 500 mL electrolyte-A (PLASMALYTE-A) bolus 500 mL 500 mL, intravenous, NOW X1, 1 dose, On Wed06/01/19 at 0500 Given 06/01/2019 4:33 EST 500 mL electrolyte-A (PLASMALYTE-A) solution at 75 mL/hr, intravenous, CONTINUOUS, Starting on Wed05/31/19 at 1545, Until Wed06/01/19 at 0904, Routine, Release New Bag 06/01/2019 5:51 EST 75 mL/hr New Bag 05/31/2019 17:05 EST 75 mL/hr enoxaparin (LOVENOX) injection 40 mg 40 mg, subcutaneous, DAILY, First dose on Wed06/03/19 at 0900, Until Discontinued, Routine Given 06/06/2019 8:16 EST 40 mg Given 06/05/2019 10:25 EST 40 mg Given 06/04/2019 10:41 EST 40 mg HYDROmorphone (DILAUDID) 2 mg tablet 1 dose, Starting on Wed05/31/19 at 1601, Until Wed05/31/19 at 1609 HYDROmorphone (DILAUDID) tablet 2-4 mg 2-4 mg, oral, EVERY 4 HOURS PRN, Starting on Wed05/31/19 at 1522, Until Wed06/06/19 at 1242, Pain, Discomfort, Routine, Release Given 06/04/2019 10:41 EST 2 mg Given 06/04/2019 6:05 EST 4 mg Given 06/03/2019 17:50 EST 4 mg HYDROmorphone (PF) (DILAUDID) 0.5 mg/0.5 mL syringe 0.3-0.5 mg 0.3-0.5 mg, intravenous, EVERY 10 MINUTES PRN, Starting on Wed05/31/19 at 1532, Until Wed05/31/19 at 1749, Pain, Routine, Recovery (only) Given 05/31/2019 16:58 EST 0.5 mg lactated ringers (LR) infusion 30 mL/hr, intravenous, CONTINUOUS, Starting on Wed05/31/19 at 0745, Until Wed06/02/19 at 0515, Routine, Preprocedure New Bag 05/31/2019 8:43 EST New Bag 05/31/2019 7:37 EST New Bag 05/31/2019 7:10 EST 30 mL/hr 30 mL/hr lactated ringers (LR) infusion at 75 mL/hr, intravenous, CONTINUOUS, Starting on Wed05/31/19 at 1600, Until Wed06/02/19 at 0515, Routine, Recovery (only) Rate Change 05/31/2019 15:56 EST 75 mL/hr magnesium citrate solution 296 mL 296 mL, oral, Once (Without Time Specified), 1 dose, Starting on Wed06/05/19 at 1630, Until Wed06/05/19 at 1748, Routine Given 06/05/2019 17:48 EST 296 mL magnesium hydroxide (MILK OF MAGNESIA) 400 mg/5 mL suspension 30 mL 30 mL, oral, AT BEDTIME, First dose on Wed06/02/19 at 2100, Until Discontinued, Routine Given 06/03/2019 6:42 EST 30 mL metoCLOPramide (REGLAN) injection 10 mg 10 mg, intravenous, EVERY 6 HOURS PRN, Starting on Verna 06/01/19 at 0109, Until Wed06/06/19 at 1242, Heartburn, Routine Given 06/01/2019 1:41 EST 10 mg metoprolol (LOPRESSOR) 5 mg in sodium chloride (NS) 0.9 % 50 mL IVPB 5 mg, intravenous, Administer over 20 Minutes, NOW X1, 1 dose, On Verna 06/01/19 at 0630, STAT Given 06/01/2019 6:43 EST 5 mg metoprolol XL (TOPROL-XL) tablet 25 mg 25 mg, oral, AT BEDTIME, First dose on Verna 06/01/19 at 2100, Until Discontinued, Routine Given 06/05/2019 20:13 EST 25 mg Given 06/04/2019 20:19 EST 25 mg Given 06/03/2019 20:27 EST 25 mg metoprolol XL (TOPROL-XL) tablet 25 mg 25 mg, oral, NOW X1, 1 dose, On Verna 06/01/19 at 0130, Routine Given 06/01/2019 1:07 EST 25 mg morphine injection 2-4 mg 2-4 mg, intravenous, EVERY 4 HOURS PRN, Starting on Wed05/31/19 at 1522, Until Wed06/06/19 at 1242, Pain, For breakthrough pain not controlled with oral medications., Routine, Release Given 06/01/2019 7:33 EST 4 mg Given 06/01/2019 1:35 EST 4 mg Given 05/31/2019 21:41 EST 2 mg Multivitamins with Minerals tablet 1 Tab 1 Tablet, oral, DAILY, First dose on Verna 06/01/19 at 0900, Until Discontinued, Routine Given 06/06/2019 8:16 EST 1 Tablet Given 06/04/2019 10:41 EST 1 Tablet Given 06/03/2019 9:57 EST 1 Tablet ondansetron (PF) (ZOFRAN) injection 4 mg 4 mg, intravenous, EVERY 4 HOURS PRN, Starting on Wed05/31/19 at 1523, Until Wed06/03/19 at 1903, Nausea, Routine, Release Given 05/31/2019 20:12 EST 4 mg ondansetron (PF) (ZOFRAN) injection 4 mg 4 mg, intravenous, PRN, 1 dose, Starting on Wed05/31/19 at 1532, Until Wed05/31/19 at 1741, Nausea, Vomiting, Routine, Recovery (only) Given 05/31/2019 17:41 EST 4 m g ondansetron (PF) (ZOFRAN) injection 4 mg 4 mg, intravenous, EVERY 4 HOURS PRN, Starting on 06/05/19 at 2155, Until Wed06/06/19 at 1242, Nausea, Routine ondansetron (ZOFRAN-ODT) disintegrating tablet 4 mg 4 mg, oral, EVERY 4 HOURS PRN, Starting on 06/03/19 at 1903, Until Wed06/06/19 at 1242, Nausea, Routine pantoprazole (PROTONIX) injection 40 mg 40 mg, intravenous, DAILY, First dose on Verna 06/01/19 at 0130, Until Discontinued, Routine Given 06/01/2019 1:08 EST 40 mg pantoprazole (PROTONIX) tablet 40 mg 40 mg, oral, DAILY, First dose on Wed06/02/19 at 1030, Until Discontinued, Routine Given 06/05/2019 10:25 EST 40 mg Given 06/04/2019 10:41 EST 40 mg Given 06/03/2019 9:57 EST 40 mg polyethylene glycol 3350 (MIRALAX) packet 17 g 17 g, oral, DAILY, First dose on Wed06/02/19 at 0900, Until Discontinued, Routine Given 06/03/2019 9:57 EST 17 g Given 06/02/2019 9:52 EST 17 g prochlorperazine edisylate (COMPAZINE) injection 10 mg 10 mg, intravenous, EVERY 6 HOURS PRN, Starting on 05/31/19 at 2309, Until Wed06/06/19 at 1242, Nausea, Routine Given 05/31/2019 23:17 EST 10 mg senna (SENOKOT) tablet 3 Tab 3 Tablet, oral, 2 TIMES DAILY, First dose (after last modification) on Wed06/02/19 at 0900, Until Discontinued, Routine, Release Given 06/03/2019 20:27 EST 3 Tablets Given 06/03/2019 9:57 EST 3 Tablets Given 06/02/2019 20:41 EST 3 Tablets documented in this encounter Discontinued Medications Medication Sig Discontinue Reason Start Date End Da te apixaban (ELIQUIS) 5 mg tablet Take 5 mg by mouth 2 times daily. 06/06/2019 documented as of this encounter Historical Medications * This list may reflect changes made after this encounter. Medication Sig Dispensed Refills Start Date End Date vit C/vit E ac/lut/copper/zinc (PRESERVISION LUTEIN ORAL) Take by mouth daily. ergocalciferol, vitamin D2, (VITAMIN D ORAL) Take by mouth daily. Multivitamins with Minerals tablet tablet Take 1 Tab by mouth daily. added in this encounter Active and Recently Administered Medications Times are shown in EST. Scheduled Medication Order 06/04/2019 06/05/2019 06/06/2019 atorvastatin (LIPITOR) tablet 10 mg 10 mg, oral, AT BEDTIME, First dose on Verna 06/01/19 at 2100, Until Discontinued, Routine 2018 (Given - Provider: Yelena Owen RN) 0022 (Given - Provider: Vito Trejo RN - Comment: pt able to take now) docusate sodium (COLACE) capsule 200 mg 200 mg, oral, 2 TIMES DAILY, First dose (after last modification) on 06/02/19 at 0900, Until Discontinued, Routine, Release 1043 (Not Given - Provider: Hugo Mckeon RN - Reason: Order parameters not met)2243 (Not Given - Provider: Yelena Owen RN - Reason: Patient/family refused) 1051 (Not Given - Provider: Hugo Mckeon RN - Reason: Patient/family refused)2012 (Not Given - Provider: Vito Trejo RN - Reason: Patient/family refused) 0814 (Not Given - Provider: Quinn Adrian, LAUREL - Reason: Patient/family refused) enoxaparin (LOVENOX) injection 40 mg 40 mg, subcutaneous, DAILY, First dose on 06/03/19 at 0900, Until Discontinued, Routine 1041 (Given - Provider: Hugo Mckeon RN) 1025 (Given - Provider: Hugo Mckeon RN) 0816 (Given - Provider: Quinn Adrian, LAUREL) magnesium citrate solution 296 mL (COMPLETED) 296 mL, oral, Once (Without Time Specified), 1 dose, Starting on 06/05/19 at 1630, Until 06/05/19 at 1748, Routine 1748 (Given - Provider: Hugo Mckeon RN) magnesium hydroxide (MILK OF MAGNESIA) 400 mg/5 mL suspension 30 mL 30 mL, oral, AT BEDTIME, First dose on Wed06/02/19 at 2100, Until Discontinued, Routine 224 (Not Given - Provider: Yelena Owen RN - Reason: Patient/family refused) 2023 (Hold - Provider: Vito Trejo RN - Reason: Patient/family refused) metoprolol XL (TOPROL-XL) tablet 25 mg 25 mg, oral, AT BEDTIME, First dose on Wed06/01/19 at 2100, Until Discontinued, Routine 2018 (Given - Provider: Yelena Owen, LAUREL) 2012 (Given - Provider: Vito Trejo, LAUREL) Multivitamins with Minerals tablet 1 Tab 1 Tablet, oral, DAILY, First dose on Wed06/01/19 at 0900, Until Discontinued, Routine 1041 (Given - Provider: Hugo Mckeon RN) 1051 (Not Given - Provider: Hugo Mckeon RN - Reason: Patient/family refused) 0816 (Given - Provider: Quinn Adrian, RN) pantoprazole (PROTONIX) tablet 40 mg 40 mg, oral, DAILY, First dose on Wed06/02/19 at 1030, Until Discontinued, Routine 1041 (Given - Provider: Hugo Mckeon RN) 1025 (Given - Provider: Hugo Mckeon RN) 0815 (Not Given - Provider: Quinn Adrian RN - Reason: Patient/family refused) polyethylene glycol 3350 (MIRALAX) packet 17 g 17 g, oral, DAILY, First dose on Wed06/02/19 at 0900, Until Discontinued, Routine 1043 (Not Given - Provider: Hugo Mckeon RN - Reason: Order parameters not met) 1051 (Not Given - Provider: Hugo Mckeon RN - Reason: Patient/family refused) 0815 (Not Given - Provider: Quinn Adrian RN - Reason: Patient/family refused) senna (SENOKOT) tablet 3 Tab 3 Tablet, oral, 2 TIMES DAILY, First dose (after last modification) on Wed06/02/19 at 0900, Until Discontinued, Routine, Release 1043 (Not Given - Provider: Hugo Mckeon RN - Reason: Order parameters not met)2244 (Not Given - Provider: Yelena Owen RN - Reason: Patient/family refused) 1051 (Not Given - Provider: Hugo Mckeon RN - Reason: Patient/family refused)2012 (Not Given - Provider: Vito Trejo RN - Reason: Patient/family refused) 0815 (Not Given - Provider: Quinn Adrian RN - Reason: Patient/family refused) PRN Medication Order 06/04/2019 06/05/2019 06/06/2019 acetaminophen (TYLENOL) solution unit dose cup 650 mg(Linked Group 1) 650 mg, per ng tube, EVERY 4 HOURS PRN, Starting on Wed05/31/19 at 1520, Until Wed06/06/19 at 1242, Pain, Routine, Release 0605 (See Alternative - Provider: Laurita Garcia RN)1040 (See Alternative - Provider: Hugo Mckeon RN)1625 (See Alternative - Provider: Hugo Mckeon RN)2018 (See Alternative - Provider: Yelena Owen, LAUREL) 0123 (See Alternative - Provider: Yelena Owen RN)1025 (See Alternative - Provider: Hugo Mckeon RN)1413 (See Alternative - Provider: Hugo Mckeon RN) 0008 (See Alternative - Provider: Vito Trejo, RN) acetaminophen (TYLENOL) suppository 650 mg(Linked Group 1) 650 mg, rectal, EVERY 4 HOURS PRN, Starting on Wed05/31/19 at 1520, Until Wed06/06/19 at 1242, Pain, Routine, Release 0605 (See Alternative - Provider: Laurita Garcia RN)1040 (See Alternative - Provider: Hugo Mckeon RN)1625 (See Alternative - Provider: Hugo Mckeon RN)2018 (See Alternative - Provider: Yelena Owen, LAUREL) 0123 (See Alternative - Provider: Yelena Owen, LAUREL)1025 (See Alternative - Provider: Hugo Mckeon RN)1413 (See Alternative - Provider: Hugo Mckeon RN) 0008 (See Alternative - Provider: Vito Trejo, LAUREL) acetaminophen (TYLENOL) tablet 650 mg(Linked Group 1) 650 mg, oral, EVERY 4 HOURS PRN, Starting on Wed05/31/19 at 1520, Until Wed06/06/19 at 1242, Pain, Routine, Release 0605 (Given - Provider: Laurita Garcia, RN)1040 (Given - Provider: Hugo Mckeon, LAUREL)1625 (Given - Provider: Hugo Mckeon RN)2019 (Given - Provider: Yelena Owen, LAUREL) 0123 (Given - Provider: Yelena Owen, RN)1025 (Given - Provider: Hugo Mckeon, LAUREL)1413 (Given - Provider: Hugo Mckeon RN) 0008 (Given - Provider: Vito Trejo RN) benzocaine-menthol (CEPACOL) 15-3.6 mg per lozenge 1 Lozenge 1 Lozenge, buccal, PRN, Starting on Wed05/31/19 at 2312, Until Wed06/06/19 at 1242, Pain, Routine bisacodyl (DULCOLAX) suppository 10 mg 10 mg, rectal, EVERY 48 HOURS PRN, Starting on Wed06/02/19 at 0000, Until Wed06/06/19 at 1242, Constipation, Routine, Release 1833 (Given - Provider: Hugo Mckeon RN) calcium carbonate (TUMS) 200 mg calcium (500 mg) per chewable tablet tablet,chewable 1 Tab 1 Tablet, oral, EVERY 4 HOURS PRN, Starting on Wed05/31/19 at 1523, Until Wed06/06/19 at 1242, Heartburn, Routine, Release hydrALAzine (APRESOLINE) 10 mg in sodium chloride (NS) 0.9 % 50 mL IVPB 10 mg, intravenous, Administer over 20 Minutes, EVERY 1 HOUR PRN, Starting on Wed05/31/19 at 1523, Until Wed06/06/19 at 1242, Routine, Release HYDROmorphone (DILAUDID) tablet 2-4 mg 2-4 mg, oral, EVERY 4 HOURS PRN, Starting on Wed05/31/19 at 1522, Until Wed06/06/19 at 1242, Pain, Discomfort, Routine, Release 0605 (Given - Provider: Laurita Garcia RN)1041 (Given - Provider: Hugo Mckeon RN) metoCLOPramide (REGLAN) injection 10 mg 10 mg, intravenous, EVERY 6 HOURS PRN, Starting on Wed06/01/19 at 0109, Until Wed06/06/19 at 1242, Heartburn, Routine morphine injection 2-4 mg 2-4 mg, intravenous, EVERY 4 HOURS PRN, Starting on Wed05/31/19 at 1522, Until Wed06/06/19 at 1242, Pain, For breakthrough pain not controlled with oral medications., Routine, Release ondansetron (PF) (ZOFRAN) injection 4 mg 4 mg, intravenous, EVERY 4 HOURS PRN, Starting on Wed06/05/19 at 2155, Until Wed06/06/19 at 1242, Nausea, Routine ondansetron (ZOFRAN-ODT) disintegrating tablet 4 mg 4 mg, oral, EVERY 4 HOURS PRN, Starting on 06/03/19 at 1903, Until Wed06/06/19 at 1242, Nausea, Routine prochlorperazine edisylate (COMPAZINE) injection 10 mg 10 mg, intravenous, EVERY 6 HOURS PRN, Starting on Wed05/31/19 at 2309, Until Wed06/06/19 at 1242, Nausea, Routine Linked Groups Order Group 1: acetaminophen (TYLENOL) tablet 650 mgJump to med 650 mg, oral, EVERY 4 HOURS PRN, Starting on Wed05/31/19 at 1520, Until Wed06/06/19 at 1242, Pain, Routine, Release Or acetaminophen (TYLENOL) solution unit dose cup 650 mgJump to med 650 mg, per ng tube, EVERY 4 HOURS PRN, Starting on Wed05/31/19 at 1520, Until Wed06/06/19 at 1242, Pain, Routine, Release Or acetaminophen (TYLENOL) suppository 650 mgJump to med 650 mg, rectal, EVERY 4 HOURS PRN, Starting on Wed05/31/19 at 1520, Until Wed06/06/19 at 1242, Pain, Routine, Release documented in this encounter Orders Medications Ordered That Jefferson ht Not Have Been Administered Count Last Ordered Date First Ordered Date ondansetron (PF) (ZOFRAN) injection 4 mg 1 06/05/2019 ondansetron (ZOFRAN-ODT) dis integrating tablet 4 mg 1 06/03/2019 acetaminophen (TYLENOL) solu tion unit dose cup 650 mg 1 05/31/2019 acetaminophen (TYLENOL) suppository 650 mg 1 05/31/2019 atropine 0.1 mg/mL syringe 0.5 mg 1 019 bacitracin injection 1 05/31/2019 bupivacaine-EPINEPHrine (PF) 0.5 %-1:200,000 injection 1 05/31/2019 ceFAZolin (ANCEF) syringe 2 g 1 05/31/2019 gelatin adsorbable 100 cm sponge 1 05/31/20 19 hydrALAzine (APRESOLINE) 10 mg in sodium chloride (NS) 0.9 % 50 mL IVPB 1 05/31/2019 lactated ringers (LR) infusion 1 05/31/2019 lidocaine (PF) 10 mg/mL (1 % ) injection 2 mg 2 05/31/2019 naloxone (NARCAN) injection 0.2 mg 1 2018 senna (SENOKOT) tablet 1 Tab 1 05/31/2019 sodium chloride 0.9 % irrigation 1 05/31/20 19 Thrombin (Bovine) 5,000 unit topical solution 1 05/31/2019 Nursing Count Last Ordered Date First Orde red Date WOUND CARE INSTRUCTIONS 1 06/06/2019 ACTIVITY INSTRUCTIONS 1 06/04/2019 BATHING INSTRUCTIONS 1 06/04/2019 DRIVING INSTRUCTIONS 1 06/04/2019 LIFTING INSTRUCTIONS 1 06/04/2019 HWANG CATHETER - DISCONTINUE 1 06/01/2019 CONTRAINDICATION TO ANTICOAG ULATION THERAPY 1 05/31/2019 INSERT HWANG CATHETER 1 05/31/2019 PLACE ANTI-EMBOLISM STOCKINGS 1 05/31/2019 PLACE SEQUENTIAL COMPRESSION DEVICE 1 05/31 PT Count Last Ordered Date First Orde red Date PT EVALUATION AND TREAT 1 06/04/2019 Admission Count Last Ordered Date First Orde red Date ADMIT TO INPATIENT 1 06/01/2019 Transfer Count Last Ordered Date First Orde red Date TEACHING SERVICE 3 05/31/2019 Discharge Count Last Ordered Date First Orde red Date DISCHARGE PATIENT 1 06/06/2019 Legal Count Last Ordered Date First Orde red Date MISCELLANEOUS DISCHARGE INSTRUCTIONS 2 05/2806/04/2019 documented in this encounter Care Teams Saw Runner Relationship Specialty Start Date End Date Garcia Gonzales MD [address] [place] [address] PCP - General 09/03/09 documented as of this encounter
--- OUTSIDE RECORDS SUMMARY | 2024-01-20 01:05 | XMS_ITS | Encounter Summary ---
Author Organization [facility] Address [address] [place] [address] Care Team Providers Care Veterinary Technology Instructor Name Role Phone Garcia Gonzales MD Primary Care Provider [phone] Reason for Visit * Reason Onset Date Comments Appointment Related 06/27/2020 Encounter Details Date Type Department Care Team (Late st Contact Info) Description 06/27/2020 Telephone [facility] [address] [place], [place] [id number] Renea Petersen RN Appointment Related Social History Tobacco Use Types Packs/Day Years Used Date Smoking Tobacco: Former Cigarettes 3 15 1 963 - 1977 Smokeless Tobacco: Never Comments:quit 41 years ago [...] No 01/19/2019 documented as of this encounter Miscellaneous Notes * Telephone Encounter - Renea Petersen, RN - 06/27/2020 1614 EST Spoke with patient to confirm following appointment details: Appointment date: 07/01/20 Appointment time: 1440-check in at 1340 for xrays Provider: Brandyn Patient is aware of the visitor policy and denied any covid symptoms. documented in this encounter Plan of Treatment Not on file documented as of this encounter Visit Diagnoses Not on filedocumented in this encounter Care Teams Veterinary Technology Instructor Relationship Specialty Start Date End Date Garcia Gonzales MD [address] [place] [address] PCP - General 09/03/09 documented as of this encounter
--- OUTSIDE RECORDS SUMMARY | 2024-01-20 01:05 | XMS_ITS | Encounter Summary ---
Author Organization [facility] Address [address] [place] [address] Care Team Providers Care Hand Sign Writer Name Role Phone Garcia Gonzales MD Primary Care Provider [phone] Reason for Visit * Reason Onset Date Comments Appointment Related 03/27/2020 Encounter Details Date Type Department Care Team (Late st Contact Info) Description 03/27/2020 Telephone [facility] - [address] [address] Caleb Ahumada MD [address] [place] [address], [address] [place] [phone] Appointment Related Social History Tobacco Use Types [...] encounter Miscellaneous Notes * Telephone Encounter - MeiAwa - 03/27/2020 6484 EDT Patient called to schedule his follow up with Dr. Ahumada. Advised patient that Dr. Ahumada is not inthe office, but that he can see one of our LAW's instead. Confirmed appointment details below. Reviewed current visitor & welcome policy. Patient verbalized understanding and denied having any questions at this time. Location: [facility] Provider: Rosalva Finney NP Date: 05/10/20 Time: 1:20pm Arrival: 12:20pm for xrays documented in this encounter Plan of Treatment Not on file documented as of this encounter Visit Diagnoses Not on filedocumented in this encounter Care Teams Hand Sign Writer Relationship Specialty Start Date End Date Garcia Gonzales MD [address] [place] [address] PCP - General 09/03/09 documented as of this encounter
--- OUTSIDE RECORDS SUMMARY | 2024-01-20 01:05 | XMS_ITS | Referral Summary ---
Author Organization [facility] Address [address] [place] [address] Care Team Providers Care Dining Car Server Name Role Phone Garcia Gonzales MD Primary Care Provider [phone] Allergies Active Allergy Reactions Criticality Noted Date [...] 01/18/2019 Cervical spondylosis with radiculopathy 01/19/20 19 Social History Tobacco Use Types Packs/Day Years [...] 13:40 EST Sexual Orientation Not on file Last Filed Vital Signs Vital Sign Reading [...] Body Mass Index 34.31 07/01/2020 1444 EST Functional Status Functional Status Response Date of [...] (5 years old or older) No 01/19/2019 Plan of Treatment Not on file Medical Devices Implanted Type Area Batch Freezer Operator Device Identifier Shelf Expiration Date Model / Serial / Lot Screw Spinal P/Ax Solid Andres 7x60mm Ft Matrix [id number] - S0 - [id number] Implanted:Qty : 2 on 05/31/2019 by Caleb Ahumada MD at [facility] Screw Implant [employer] 04.639.76 0 / 0 / Screw Spinal P/Ax Solid Andres 8x60mm Ft Matrix [id number] - S0 - [id number] Implanted:Qty : 2 on 05/31/2019 by Caleb Ahumada MD at [facility] Screw Implant [employer] 04.639.86 0 / 0 / Screw Spinal P/Ax Solid Ti 5.5mm Matrix [id number] - S0 - [id number] Implanted:Qty : 6 on 05/31/2019 by Caleb Ahumada MD at [facility] Screw Implant [employer] 04.632.00 1 / 0 / Screw Spinal P/Ax Solid Ti 8x55mm Ft Matrix [id number] - S0 - [id number] Implanted:Qty : 1 on 05/31/2019 by Caleb Ahumada MD at [facility] Screw Implant [employer] 04.639.85 5 / 0 / Screw Spinal P/Ax Solid Ti 7x50mm Ft Matrix [id number] - S0 - [id number] Implanted:Qty : 1 on 05/31/2019 by Caleb Ahumada MD at [facility] Screw Implant [employer] 04.639.75 0 / 0 / End Cap Spinal Deformity 5.5mm Matrix [id number] - S0 - [id number] Implanted:Qty : 6 on 05/31/2019 by Caleb Ahumada MD at [facility] Spinal Implant [employer] .632.00 0 / 0 / Yosef Spinal Postr Cerv Ti Prebnt 5.5x65mm Matrix [id number] - S0 - [id number] Implanted:Qty : 1 on 05/31/2019 by Caleb Ahumada MD at [facility] Spinal Implant [employer] .636.06 5 / 0 / Yosef Spinal Lumbr Ti Prebnt 5.5x70mm Matrix [id number] - S0 - [id number] Implanted:Qty : 1 on 05/31/2019 by Caleb Ahumada MD at [facility] Spinal Implant N/A: Back [employer] 636.07 0 / 0 / Advance Directives For more information, please contact: [phone] Documents on File Type Date Recorded Patient Sand Technologist Expl anation COLST/MOLST 06/09/2019 9:27 D NR/COLST Advance Directive 07/17/2015 15:20 [place] nce [place]ive for Health Care signed 2015-06-14 [...] the discussion? Not Discusse d Care Teams Dining Car Server Relationship Specialty Start Date End Date Garcia Gonzales MD [address] [place], [place] [phone] [facility] - General 09/03/09
--- OUTSIDE RECORDS SUMMARY | 2024-01-20 01:05 | XMS_ITS | Encounter Summary ---
Author Organization [facility] Address [address] [place] [address] Care Team Providers Care Candle Extrusion Machine Operator Name Role Phone Garcia Gonzales MD Primary Care Provider [phone] Encounter Details Date Type Department Care Team (Late st Contact Info) Description 08/26/2021 Lab Requisition [facility] Pathology & Laboratory Medicine - [facility] [address] [place] [address] Marisol Florence, DO [address] [place], [place] [phone] Encounter for other general examination Social History Tobacco Use Types Packs/Day Years [...] on file documented as of this encounter Procedures Procedure Name Priority Date/Time Associated Diagnosis Comments SURGICAL PATHOLOGY Today 08/26/2021 9: 48 EST Encounter for other general examination documented in this encounter Results * SURGICAL PATHOLOGY (08/26/2021 9:48 EST) Note to Patient The following pathology results have been interpreted by your pathologist and may be available to you before your health provider has had the opportunity to review them. Please allow time for your provider to receive these results and explore management options, if applicable. 08/28/2021 18:36 [facility] Final Diagnosis A. COLON, CECUM, POLYP, BIOPSY: - Fragments of tubular adenoma. B. COLON, 80 CM, POLYP, BIOPSY: - Fragments of tubular adenoma. C. COLON, 70 CM, POLYP, BIOPSY: - Tubular adenoma. D. COLON, 60 CM, POLYP, BIOPSY: - Tubular adenoma. 08/28/2021 18:36 [facility] Attestation By the signature below, the attending physician certifies that they have 1) personally conducted a gross and/or microscopic examination of the described specimen(s), and/or personally interpreted the results of laboratory testing of the described specimen(s), and 2) personally rendered or confirmed the above diagnosis. 08/28/2021 18:36 [facility] at 1836 Clinical History History of polyps; tics/int heme 08/28/2021 18:36 [facility] Gross Description A. Received in formalin labelled with proper patient identification (initials H, D) and cecum polyp are 5 light reardon tissues ranging in size from 0.2 x 0.1 x 0.1 cm up to 0.4 x 0.2 x 0.1 cm. Submitted intact in A1. B. Received in formalin labelled with proper patient identification (initials H, D) and colon polyp at 80 cm are 10 light reardon tissues ranging in size from 0.2 x 0.1 x 0.1 cm up to 0.5 x 0.5 x 0.2 cm. Submitted intact in B1-B2. C. Received in formalin labelled with proper patient identification (initials H, D) and colon polyp at 70 cm is a reardon-pink polypoid tissue measuring 0.3 x 0.3 x 0.2 cm. Submitted intact in C1. D. Received in formalin labelled with proper patient identification (initials H, D) and colon polyp at 60 cm is a 0.3 x 0.2 x 0.1 cm light reardon tissue. Submitted intact in D1. DAVIN DENG(ASCP) 08/26/2021 19:41 08/28/2021 18:36 EST [facility] Performing Lab [facility] 08/28/2021 18:36 EST [facility] Scanned Images 08/28/2021 18:36 EST [facility] Tissue ENTIRE COLON / Unknown 08/26/2021 9:48 EST 08/26/2021 16:28 EST Tissue specimen (specimen) COLON STRUCTURE / Unknown 08/26/2021 9:48 EST 08/26/2021 16:28 EST Tissue specimen (specimen) COLON STRUCTURE / Unknown 08/26/2021 9:48 EST 08/26/2021 16:28 EST Tissue specimen (specimen) COLON STRUCTURE / Unknown 08/26/2021 9:48 EST 08/26/2021 16:28 EST Marisol Florence DO PATHOLOGY ORDERABLES [facility] [address] [place] [address] documented in this encounter Visit Diagnoses Diagnosis Encounter for other general examination documented in this encounter Care Teams Candle Extrusion Machine Operator Relationship Specialty Start Date End Date Garcia Gonzales MD [address] [place] [address] PCP - General 09/03/09 documented as of this encounter
--- OUTSIDE RECORDS SUMMARY | 2024-01-20 01:05 | XMS_ITS | Encounter Summary ---
Author Organization [facility] Address [address] [place] [address] Care Team Providers Care Sales Analyst Name Role Phone Garcia Gonzales MD Primary Care Provider [phone] Encounter Details Date Type Department Care Team (Late st Contact Info) Description 09/07/2019 Lab Requisition [facility] Pathology & Laboratory Medicine - [address] [address] Unknown, Provider, Social History Tobacco Use Types Packs/Day Years [...] Procedure Name Priority Date/Time Associated Diagnosis Comments PSA TOTAL, DIAGNOSTIC Routine 09/06/2019 14:30 EDT documented in this encounter Results * PSA TOTAL, DIAGNOSTIC (09/06/2019 14:30 EDT) PSA 5.1 0.0 - 6.5 ng/mL 09/08/2019 10:06 EDT [facility] Blood VENOUS BLOOD / Unknown 09/06/2019 14:30 EDT 09/07/2019 15:59 EDT Narrative [facility] - 09/08/2019 10:06 EDT NOTE: Serum PSA concentration should not be interpreted as absolute evidence for the presence or absence of malignant disease. Assayed on Siemens SusoIA appruptaur XPT using chemiluminescent technology.??Values obtained by using different assay methods cannot be used interchangeably. Provider Unknown CHEMISTRY & BLOOD GA S ORDERABLES [facility] [address] [place] [address] documented in this encounter Visit Diagnoses Not on filedocumented in this encounter Care Teams Sales Analyst Relationship Specialty Start Date End Date Garcia Gonzales MD [address] [place] [address] PCP - General 09/03/09 documented as of this encounter
--- OUTSIDE RECORDS SUMMARY | 2024-01-20 01:05 | XMS_ITS | Encounter Summary ---
Author Organization [facility] Address [address] [place] [address] Care Team Providers Care Senior Test Analyst Name Role Phone Garcia Gonzales MD Primary Care Provider [phone] Reason for Visit * Reason Onset Date Comments Appointment Related 06/19/2020 Encounter Details Date Type Department Care Team (Late st Contact Info) Description 06/19/2020 Telephone [facility] - [address] [address] Caleb Ahumada MD [address] [place] [address], [address] [place] [phone] Appointment Related Social History Tobacco Use Types [...] encounter Miscellaneous Notes * Telephone Encounter - Lizz Adrian - 06/19/2020 4465 EST Confirmed the following appointment details with Nakul. He verbalized understanding and denied having any questions. 07/01/2020 - [facility] Check in at 1:40pm at registration for xrays Appointment at 2:40pm with Dr. Rios Ahumada documented in this encounter Plan of Treatment Not on file documented as of this encounter Visit Diagnoses Not on filedocumented in this encounter Care Teams Senior Test Analyst Relationship Specialty Start Date End Date Garcia Gonzales MD [address] [place] [address] PCP - General 09/03/09 documented as of this encounter
--- OUTSIDE RECORDS SUMMARY | 2024-01-20 01:05 | XMS_ITS | Encounter Summary ---
Author Organization [facility] Address [address] [place] [address] Care Team Providers Care Assistant Administrator Name Role Phone Garcia Gonzales MD Primary Care Provider [phone] Reason for Visit * Reason Onset Date Comments Diagnostic Imaging Report 10/24/2020 MRI Appointment Related 10/24/2020 Encounter Details Date Type Department Care Team (Late st Contact Info) Description 10/24/2020 Telephone [facility] [address] [place], [place] [address] Caleb Ahumada MD [address] [facility], [address] [place] [address] Diagnostic Imaging Report (MRI 10/22/20 ); Appointment Related Social History Tobacco Use Types [...] encounter Miscellaneous Notes * Telephone Encounter - Connie Merritt - 10/24/2020 2609 EDT Patient calling to get the fur now that MRI was done 10/22/20 at [facility]. Please call. documented in this encounter Plan of Treatment Not on file documented as of this encounter Visit Diagnoses Not on filedocumented in this encounter Care Teams Assistant Administrator Relationship Specialty Start Date End Date Garcia Gonzales MD [address] [place] [address] PCP - General 09/03/09 documented as of this encounter
--- OUTSIDE RECORDS SUMMARY | 2024-01-20 01:05 | XMS_ITS | Encounter Summary ---
Author Organization [facility] Address [address] [place] [address] Care Team Providers Care Solar Energy Installation Manager Name Role Phone Garcia Gonzales MD Primary Care Provider [phone] Reason for Visit * Reason Onset Date Comments Appointment Related 08/09/2019 Encounter Details Date Type Department Care Team (Late st Contact Info) Description 08/09/[address] [address] Caleb Ahumada MD [address] [place] [address], [address] [place] [phone] Appointment Related Social History Tobacco Use Types [...] encounter Miscellaneous Notes * Telephone Encounter - Awa Hurley - 08/09/2019 1051 EST Spoke with patient and confirmed appointment details below. Patient verbalized understanding and denied having any questions at this time. Location: [facility] Provider: Rios Ahumada MD Date: 09/05/19 Time: 11:30am documented in this encounter Plan of Treatment Not on file documented as of this encounter Visit Diagnoses Not on filedocumented in this encounter Care Teams Solar Energy Installation Manager Relationship Specialty Start Date End Date Garcia Gonzales MD [address] [place] [address] PCP - General 09/03/09 documented as of this encounter
--- OUTSIDE RECORDS SUMMARY | 2024-01-20 01:05 | XMS_ITS | Encounter Summary ---
Author Organization [facility] Address [address] [place] [address] Care Team Providers Care Produce Weigher Name Role Phone Garcia Gonzales MD Primary Care Provider [phone] Reason for Referral * PT/OT/ST (Routine) - Authorization Not Required Specialty Diagnoses / Procedures Referred By Contac t Referred To Contact Diagnoses Lumbar stenosis with neurogenic claudication Caleb Ahumada MD [address] [place] [phone] Referral ID Status Reason Start Date Expiration Date Visits Requested Visits Authorized [id number] Authorization Not Required Specialty Services Required 06/27/20 19 1 1 Question Answer Reason for Request: strengthening after lumbar fusion Reason for Visit * Reason Comments Back Pain LBP Encounter Details Date Type Department Care Team (Late st Contact Info) Description 06/27/2019 15:00 EST Post-op Visit [facility] Neurosurgery - [address] [address] Caleb Ahumada MD [address] [place] [phone] Lumbar stenosis with neurogenic claudication (Primary Dx) Social History Tobacco Use Types [...] Progress Notes * Caleb Ahumada MD - 06/27/2019 1500 EST Mr Sam returns for followup. He is 1 month status post L3 through L5 decompression and fusion. He reports that he is generally doing well. Back pain is modest at this point. He is taking Tylenol only. He has no leg pain whatsoever. He is functioning independently at home. Current VAS pain scores are 2/3/0/6. His major problem is some right lower paraspinous pain that predated his surgery and began after he lifted his leg onto a railing in his house some months prior to surgery. VAS 2/3/0/6.There was a pinhole durotomy at surgery, but the patient reports very mild and intermittent headache, non-postural, that seems to be getting better. Physical exam reveals full power in iliopsoas, quadriceps, dorsiflexors and plantar flexors. There is no numbness or paresthesia in the lower extremities. Gait is steady. Incision is flat and well-healed. Mr Sam was made a good recovery following his surgery. His preoperative symptoms are improved. I would like for him to start physical therapy. I will see him back in 2 to 3 months. No films are necessary at that time. All questions were answered. Fifteen minutes of this 25-minute [id number]-aa-[id number] visit were spent in patient counseling. documented in this encounter Plan of Treatment Scheduled Referrals Name Type Priority Associated Diagnoses Orde r Schedule AMB CONS/FOLLOW UP PHYSICAL THERAPY Outpatient Referral Routine Lumbar stenosis with neurogenic claudication Ordered: 06/27/2019 documented as of this encounter Visit Diagnoses Diagnosis Lumbar stenosis with neurogenic claudication- Primary Spinal stenosis, lumbar region, with neurogenic claudication documented in this encounter Care Teams Produce Weigher Relationship Specialty Start Date End Date Garcia Gonzales MD [address] [place] [address] PCP - General 09/03/09 documented as of this encounter
--- OUTSIDE RECORDS SUMMARY | 2024-01-20 01:05 | XMS_ITS | Encounter Summary ---
Author Organization [facility] Address [address] [place] [address] Care Team Providers Care Svp Name Role Phone Garcia Gonzales MD Primary Care Provider Reason for Visit * Reason Onset Date Comments Physical Therapy 06/12/2019 Encounter Details Date Type Department Care Team (Late st Contact Info) Description 06/12/2019 Telephone [facility] [address] [place], [place] [id number] Brigette Moser RN Physical Therapy Social History Tobacco Use Types Packs/Day Years [...] encounter Miscellaneous Notes * Telephone Encounter - Brigette Moser RN - 06/13/2019 1010 EST Spoke with the patient and advised to follow up at PCP office or Urgent Care if he does not wish toreturn to Neurosurgery for removal. * Telephone Encounter - Brigette Moser RN - 06/12/2019 1627 EST Home health calling to inquire about home PT services. Advised he will not need PT until reevaluated on 06/27/19. Home health provider asked that Neurosurgery contact the patient regarding suture removal. He may be reache at [phone]. documented in this encounter Plan of Treatment Not on file documented as of this encounter Visit Diagnoses Not on filedocumented in this encounter Care Teams Svp Relationship Specialty Start Date End Date Garcia Gonzales MD [address] [place] [address] PCP - General 09/03/09 documented as of this encounter
--- OUTSIDE RECORDS SUMMARY | 2024-01-20 01:05 | XMS_ITS | Encounter Summary ---
Author Organization [facility] Address [address] [place] [address] Care Team Providers Care Bakery Deliverer Name Role Phone Garcia Gonzales MD Primary Care Provider [phone] Reason for Visit * (Routine) - Receiving Office to Obtain Authorization Specialty Diagnoses / Procedures Referred By Lucia garcia Referred To Contact Procedures MR OUTSIDE IMAGES NEURO Unknown, Provider, Referral ID Status Reason Start Date Expiration Date Visits Requested Visits Authorized [id number] Receiving Office to Obtain Authorization 10/23/2020 1 1 Encounter Details Date Type Department Care Team (Latest Contact Info) Description 10/22/2020 - 10/22/2020 23:59 EDT Hospital Encounter [facility] [place] Discharge Disposition: Home or Self Care Social History Tobacco Use Types Packs/Day Years [...] No 01/19/2019 documented as of this encounter Medications at Time of Discharge [...] mouth daily. documented as of this encounter Discharge Disposition Disposition Code Departure Means Destination Home or Self Care documented in this encounter Plan of Treatment Not on file documented as of this encounter Procedures Procedure Name Priority Date/Time Associated Diagnosis Comments MR OUTSIDE IMAGES NEURO Routine 10/23/2020 9:40 EDT documented in this encounter Results * MR OUTSIDE IMAGES NEURO (10/23/2020 9:40 EDT) Narrative 10/23/2020 9:40 EDT This is a non-reportable exam. Provider Unknown MD CARSON OTHER IMAGING OR DERABLES documented in this encounter Visit Diagnoses Not on filedocumented in this encounter Care Teams Bakery Deliverer Relationship Specialty Start Date End Date Garcia Gonzales MD [address] [place] [address] PCP - General 09/03/09 documented as of this encounter
--- OUTSIDE RECORDS SUMMARY | 2024-01-20 01:05 | XMS_ITS | Encounter Summary ---
Author Organization [facility] Address [address] [place] [address] Care Team Providers Care Plate Fitter Name Role Phone Garcia Gonzales MD Primary Care Provider [phone] Encounter Details Date Type Department Care Team (Late st Contact Info) Description 01/22/2020 Lab Requisition [facility] Pathology & Laboratory Medicine - [address] [address] Outr Resulting Lab, Provider Social History Tobacco Use Types Packs/Day Years Used Date Smoking Tobacco: Former Cigarettes 3 15 1 [phone] Smokeless Tobacco: Never Comments:quit 41 years ago [...] Procedure Name Priority Date/Time Associated Diagnosis Comments PTH INTACT Routine 01/22/2020 9:02 EDT documented in this encounter Results * PTH INTACT (01/22/2020 9:02 EDT) Intact PTH 27 19 - 88 pg/mL 01/23/2020 9:16 EDT [facility] Blood VENOUS BLOOD / Unknown 01/22/2020 9:02 EDT 01/22/2020 15:57 EDT Provider Outr Resulting Lab CHEMISTRY & BLOOD GAS ORDERABLES [facility] [address] [place] [address] documented in this encounter Visit Diagnoses Not on filedocumented in this encounter Care Teams Plate Fitter Relationship Specialty Start Date End Date Garcia Gonzales MD [address] [place] [address] PCP - General 09/03/09 documented as of this encounter
--- OUTSIDE RECORDS SUMMARY | 2024-01-20 01:05 | XMS_ITS | Encounter Summary ---
Author Organization [facility] Address [address] [place] [address] Care Team Providers Care Product Inspection Supervisor Name Role Phone Garcia Gonzales MD Primary Care Provider [phone] Reason for Referral * Radiology Services (Routine) - Closed Specialty Diagnoses / Procedures Referred By Contac t Referred To Contact Diagnoses Lumbar stenosis with neurogenic claudication Procedures XR LUMBAR SPINE 4 OR MORE VIEWS Caleb Ahumada MD [address] [place] [phone] Referral ID Status Reason Start Date Expiration Date Visits Re quested Visits Authorized [id number] Closed 09/05/2019 1 1 Reason for Visit * Reason Comments Back Pain LBP Encounter Details Date Type Department Care Team (Late st Contact Info) Description 09/05/2019 11:30 EDT Post-op Visit [facility] Neurosurgery - [address] [address] Caleb Ahumada MD [address] [place] [phone] Lumbar stenosis with neurogenic claudication (Primary [...] Progress Notes * Caleb Ahumada MD - 09/05/2019 1130 EDT 8 months sp C4-T2 fusion and C7-T2 decompression/synovial cyst removal 3 months sp L1-5 decompression and L3-5 instrumented fusion Presents in follow-up. No pain to speak of. KAMILLA 4/50, VAS 0/0/0/0. Hand still a bit weak - using global compensation director strengthening devices as home. Balance OK. Elected not to do PT. Full power both IP, quad, DF, PF. No numbness. Doing well. Fu in 8-9 months with cervical and lumbar XR. documented in this encounter Plan of Treatment Not on file documented as of this encounter Results * XR LUMBAR SPINE 4 OR MORE VIEWS (07/01/2020 13:58 EST) Anatomical Region Laterality Modality Computed Radiogr aphy 07/03/2020 10:4 3 EST Addenda Addendum by Zaid Beltre MD on 08/05/2020 16:21 EST Addendum: For the cervical spine technique, the views were obtained were AP, lateral, swimmer's view of the cervicothoracic junction, extension, swimmer's view of the cervicothoracic junction in extension, flexion, and swimmer's view of the cervicothoracic junction in flexion. Impressions 07/03/2020 10:43 EST Cervical spine: Posterior cervical thoracic fusion hardware appears intact. Diffuse osteopenia. Vertebral body heights are maintained. No evidence of destructive osseous lesions or acute fractures. Normal atlantodental interval. Sagittal alignment shows mild grade 1 anterolisthesis at C4-5 and C5-6, not significantly changed on dynamic imaging. Lumbar spine: Posterior spinal fusion hardware at L3-L5 appears intact. Vertebral body heights are maintained. Multilevel endplate degenerative changes. Moderate disc height loss at L5-S1. Multilevel facet arthrosis. No destructive osseous lesions. Normal coronal alignment. Sagittal alignment is notable for minimal retrolisthesis at L2-3 and L3-4, and grade 1 anterolisthesis at L4-5. No significant change with flexion or extension. Narrative 07/03/2020 10:43 EST XR CERVICAL SPINE 6 OR MORE VIEWS, XR LUMBAR SPINE 4 OR MORE VIEWS ??07/01/2020 3:30 PM Clinical History/Comments: assess hardware. Technique: AP, lateral, swimmer's, flexion, and extension views of the cervical spine. AP, lateral, extension, and flexion views of the lumbar spine. Procedure Note Zaid Beltre MD - 07/03/2020 XR CERVICAL SPINE 6 OR MORE VIEWS, XR LUMBAR SPINE 4 OR MORE VIEWS07/01/2020 3:30 PM Clinical History/Comments: assess hardware. Technique: AP, lateral, swimmer's, flexion, and extension views of thecervical spine. AP, lateral, extension, and flexion views of the lumbarspine. IMPRESSION Cervical spine: Posterior cervical thoracic fusion hardware appearsintact. Diffuse osteopenia. Vertebral body heights are maintained. Noevidence of destructive osseous lesions or acute fractures. Normalatlantodental interval. Sagittal alignment shows mild grade 1anterolisthesis at C4-5 and C5-6, not significantly changed on dynamicimaging. Lumbar spine: Posterior spinal fusion hardware at L3-L5 appears intact.Vertebral body heights are maintained. Multilevel endplate degenerativechanges. Moderate disc height loss at L5-S1. Multilevel facet arthrosis.No destructive osseous lesions. Normal coronal alignment. Sagittalalignment is notable for minimal retrolisthesis at L2-3 and L3-4, andgrade 1 anterolisthesis at L4-5. No significant change with flexion orextension. Caleb Ahumada MD IMG DIAGNOSTIC IM AGING ORDERABLES documented in this encounter Visit Diagnoses Diagnosis Lumbar stenosis with neurogenic claudication- Primary Spinal stenosis, lumbar region, with neurogenic claudication Lumbar stenosis with neurogenic claudication Spinal stenosis, lumbar region, with neurogenic claudication documented in this encounter Care Teams Product Inspection Supervisor Relationship Specialty Start Date End Date Garcia Gonzales MD [address] [place] [address] PCP - General 09/03/09 documented as of this encounter
--- OUTSIDE RECORDS SUMMARY | 2024-01-20 01:05 | XMS_ITS | Encounter Summary ---
Author Organization [facility] Address [address] [place] [address] Care Team Providers Care Hotel Night Auditor Name Role Phone Garcia Gonzales MD Primary Care Provider [phone] Reason for Referral * Radiology Services (Routine) - Closed Specialty Diagnoses / Procedures Referred By Contac t Referred To Contact Diagnoses Lumbar stenosis with neurogenic claudication Procedures XR ENTIRE SPINE 2-3 VIEWS Caleb Ahumada MD [address] [place] [phone] Referral ID Status Reason Start Date Expiration Date Visits Re quested Visits Authorized [id number] Closed 06/27/2019 1 1 Reason for Visit * Radiology Services (Routine) - Closed Specialty Diagnoses / Procedures Referred By Contac t Referred To Contact Diagnoses Lumbar stenosis with neurogenic claudication Procedures XR ENTIRE SPINE 2-3 VIEWS Caleb Ahumada MD [address] [place] [phone] Referral ID Status Reason Start Date Expiration Date Visits Re quested Visits Authorized [id number] Closed 06/27/2019 1 1 Encounter Details Date Type Department Care Team (Latest Contact Info) Description 06/27/2019 13:32 EST - 06/28/2019 23:59 EST Hospital Encounter [address] [facility] [address] [place], [place] [phone] Lumbar stenosis with neurogenic claudication Discharge Disposition: Home or Self Care Social History Tobacco Use Types Packs/Day Years Used Date Smoking Tobacco: Former Cigarettes 3 15 1 963 1977 Smokeless Tobacco: Never Comments:quit 41 years [...] Procedure Name Priority Date/Time Associated Diagnosis Comments XR ENTIRE SPINE 2-3 VIEWS Routine 06/27/2019 14:07 EST Lumbar stenosis with neurogenic claudication documented in this encounter Results * XR ENTIRE SPINE 2-3 VIEWS (06/27/2019 14:07 EST) Anatomical Region Laterality Modality Spine Computed Radiogr aphy 06/30/2019 17:2 1 EST Impressions 06/30/2019 17:21 EST Status post cervicothoracic and lower lumbar instrumented fusion. Hardware is intact. Unchanged grade 1 L4 on 5 anterolisthesis. Narrative 06/30/2019 17:21 EST XR ENTIRE SPINE 2-3 VIEWS ??06/27/2019 1:59 PM Clinical History/Comments: assess alignment L3-5 fusion. Technique: PA and lateral views of the whole spine, with dedicated magnified PA and lateral views of the cervical, thoracic, and lumbar spine. Comparison: Lumbar spine radiograph 06/02/2019 Findings: Status post cervicothoracic fusion. Hardware is partially obscured by overlying soft tissue and shoulders. The hardware appears intact allowing for limitations of technique. Status post L3-5 posterior instrumented fusion. Hardware is intact without evidence of loosening. There is grade 1 anterolisthesis of L4 on 5. Vertebral body height is maintained. No suspicious osteolytic or sclerotic lesion. There is a large anterior osteophyte at T9-10. There is multilevel degenerative disc and facet change in the cervical and lumbar spine. Procedure Note Rios Anton MD - 06/30/2019 XR ENTIRE SPINE 2-3 VIEWS 06/27/2019 1:59 PM Clinical History/Comments: assess alignment L3-5 fusion. Technique: PA and lateral views of the whole spine, with dedicated magnified PA andlateral views of the cervical, thoracic, and lumbar spine. Comparison: Lumbar spine radiograph 06/02/2019 Findings: Status post cervicothoracic fusion. Hardware is partially obscured byoverlying soft tissue and shoulders. The hardware appears intact allowingfor limitations of technique. Status post L3-5 posterior instrumented fusion. Hardware is intact withoutevidence of loosening. There is grade 1 anterolisthesis of L4 on 5. Vertebral body height is maintained. No suspicious osteolytic or scleroticlesion. There is a large anterior osteophyte at T9-10. There is multilevel degenerative disc and facet change in the cervical andlumbar spine. IMPRESSION Status post cervicothoracic and lower lumbar instrumented fusion. Hardwareis intact. Unchanged grade 1 L4 on 5 anterolisthesis. Caleb Ahumada MD IMG DIAGNOSTIC IM AGING ORDERABLES documented in this encounter Visit Diagnoses Diagnosis Lumbar stenosis with neurogenic claudication Spinal stenosis, lumbar region, with neurogenic claudication documented in this encounter Care Teams Hotel Night Auditor Relationship Specialty Start Date End Date Garcia Gonzales MD [address] [place] [address] PCP - General 09/03/09 documented as of this encounter
--- OUTSIDE RECORDS SUMMARY | 2024-01-20 01:05 | XMS_ITS | Encounter Summary ---
Author Organization [facility] Address [address] [place] [address] Care Team Providers Care Conical Mixer Name Role Phone Garcia Gonzales MD Primary Care Provider [phone] Reason for Referral * Radiology Services (Routine) - Closed Specialty Diagnoses / Procedures Referred By Contac t Referred To Contact Diagnoses Lumbar stenosis with neurogenic claudication Procedures XR LUMBAR SPINE 4 OR MORE VIEWS Caleb Ahumada MD [address] [place] [phone] Referral ID Status Reason Start Date Expiration Date Visits Re quested Visits Authorized [id number] Closed 09/05/2019 1 1 Reason for Visit * Radiology Services (Routine) - Closed Specialty Diagnoses / Procedures Referred By Contac t Referred To Contact Diagnoses Lumbar stenosis with neurogenic claudication Procedures XR CERVICAL SPINE 6 OR MORE VIEWS XR CERVICAL SPINE 4-5 VIEWS Caleb Ahumada MD [address] [place] [phone] Referral ID Status Reason Start Date Expiration Date Visits Re quested Visits Authorized [id number] Closed 09/05/2019 1 1 Encounter Details Date Type Department Care Team (Latest Contact Info) Description 07/01/2020 13:31 EST - 07/01/2020 23:59 EST Hospital [facility] [place] [address] Lumbar stenosis with neurogenic claudication Discharge Disposition: [...] Name Priority Date/Time Associated Diagnosis Comments XR LUMBAR SPINE 4+ VIEWS Routine 07/01/2020 13:58 EST Lumbar stenosis with neurogenic claudication XR CERVICAL SPINE 6 OR MORE VIEWS Routine 07/01/2020 13:58 EST Lumbar stenosis with neurogenic claudication documented in this encounter Results * XR CERVICAL SPINE 6 OR MORE VIEWS (07/01/2020 13:58 EST) Anatomical [...] IM AGING ORDERABLES * XR LUMBAR SPINE 4 OR MORE [...] claudication documented in this encounter Care Teams Conical Mixer Relationship Specialty Start Date End Date Garcia Gonzales MD [address] [place] [address] PCP - General 09/03/09 documented as of this encounter
--- OUTSIDE RECORDS SUMMARY | 2024-01-20 01:05 | XMS_ITS | Encounter Summary ---
Author Organization [facility] Address [address] [place] [address] Care Team Providers Care Supplemental Nurse Name Role Phone Garcia Gonzales MD Primary Care Provider [phone] Reason for Visit * Reason Onset Date Comments Appointment Related 10/02/2020 Encounter Details Date Type Department Care Team (Late st Contact Info) Description 10/02/2020 Telephone [facility] - [address] [address] Caleb Ahumada MD [address] [place] [address], [address] [place] [phone] Appointment Related Social History Tobacco Use Types [...] encounter Miscellaneous Notes * Telephone Encounter - Jessy Monte - 10/02/2020 1023 EDT Spoke with patients partner and asked if patient ever had his MRI? She said that he had not. Will send MRI order to [facility]. Asked that once patient is scheduled for MRI that he calland sched a telemedicine f/u with Dr. Ahumada. documented in this encounter Plan of Treatment Not on file documented as of this encounter Visit Diagnoses Not on filedocumented in this encounter Care Teams Supplemental Nurse Relationship Specialty Start Date End Date Garcia Gonzales MD [address] [place] [address] PCP - General 09/03/09 documented as of this encounter
--- OUTSIDE RECORDS SUMMARY | 2024-01-20 01:05 | XMS_ITS | Encounter Summary ---
Author Organization [facility] Address [address] [place] [address] Care Team Providers Care Machine Compositor Name Role Phone Garcia Gonzales MD Primary Care Provider [phone] Reason for Referral * Radiology Services (Routine) - Closed Specialty Diagnoses / Procedures Referred By Contac t Referred To Contact Diagnoses Lumbar stenosis with neurogenic claudication Procedures XR ENTIRE SPINE 2-3 VIEWS Caleb Ahumada MD [address] [place] [phone] Referral ID Status Reason Start Date Expiration Date Visits Re quested Visits Authorized [id number] Closed 06/27/2019 1 1 Encounter Details Date Type Department Care Team (Late st Contact Info) Description 06/27/2019 Orders Only [facility] Neurosurgery - [address] [phone] Caleb Ahumada MD [address] [place] [phone] Lumbar stenosis with neurogenic claudication (Primary [...] as of this encounter Results * XR ENTIRE SPINE [...] the cervical and lumbar spine. Procedure Note Desean, Rios B, MD - 06/30/2019 XR ENTIRE SPINE 2-3 [...] claudication documented in this encounter Care Teams Machine Compositor Relationship Specialty Start Date End Date Garcia Gonzales MD [address] [place] [address] PCP - General 09/03/09 documented as of this encounter
--- OUTSIDE RECORDS SUMMARY | 2024-01-20 01:06 | XMS_ITS | Encounter Summary ---
Author Organization [facility] Address [address] [place] [address] Care Team Providers Care Hospice Music Therapist Name Role Phone Garcia Gonzales MD Primary Care Provider [phone] Reason for Visit * Reason Onset Date Comments Update 12/16/2018 Encounter Details Date Type Department Care Team (Late st Contact Info) Description 12/16/2018 Telephone [facility] Neurosurgery - [facility] [address] [place], [place] [phone] Renea Petersen, RN Update Social History Tobacco Use Types Packs/Day Years Used Date Smoking Tobacco: Former Smokeless Tobacco: Never Comments:quit 41 years ago Sex and Gender Information Value Date Recorded Sex Assigned at Not on file Gender Identity Male 06/01/2019 13:40 EST Sexual Orientation Not on file documented as of this encounter Functional Status Functional Status Response Date of Assess ment Because of a physical, menta l, or emotional condition, does this person have difficulty doing errands alone such as visiting a doctor's office or shopping? No 11/22/2018 Cognitive Status Response Date of Assessm ent Because of a physical, menta l, or emotional condition, does this person have serious difficulty concentrating, remembering, or making decisions? No 11/22/2018 documented as of this encounter Miscellaneous Notes * Telephone Encounter - Renea Petersen RN - 12/16/2018 7212 EDT Received a call from the patient stating that his PCP called and they are willing to do the MRSA swab at the time og his pre-op physical on 12/30/18 and they will send the results to the office. documented in this encounter Plan of Treatment Not on file documented as of this encounter Visit Diagnoses Not on filedocumented in this encounter Care Teams Hospice Music Therapist Relationship Specialty Start Date End Date Garcia Gonzales MD [address] [place] [address] PCP - General 09/03/09 documented as of this encounter
--- OUTSIDE RECORDS SUMMARY | 2024-01-20 01:06 | XMS_ITS | Encounter Summary ---
Author Organization [facility] Address [address] [place] [address] Care Team Providers Care Flower Machine Operator Name Role Phone Garcia Gonzales MD Primary Care Provider [phone] Encounter Details Date Type Department Care Team (Latest Contact Info) Description 06/03/2015 14:20 EST - 06/03/2015 23:59 EST Hospital Encounter [address] [address] Unknown, ProviderMD Discharge Disposition: Home or Self Care Social History Tobacco Use Types Packs/Day Years Used Date Smoking Tobacco: Never Assessed Sex and Gender Information Value Date Recorded Sex Assigned at Not on file Gender Identity Male 06/01/2019 13:40 EST Sexual Orientation Not on file documented as of this encounter Discharge Disposition Disposition Code Departure Means Destination Home or Self Long-Term documented in this encounter Plan of Treatment Not on file documented as of this encounter Visit Diagnoses Not on filedocumented in this encounter Care Teams Flower Machine Operator Relationship Specialty Start Date End Date Garcia Gonzales MD [address] [place] [address] PCP - General 09/03/09 documented as of this encounter
--- OUTSIDE RECORDS SUMMARY | 2024-01-20 01:06 | XMS_ITS | Encounter Summary ---
Author Organization [facility] Address [address] [place] [address] Care Team Providers Care Learning Consultant Name Role Phone Garcia Gonzales MD Primary Care Provider [phone] Reason for Visit * Reason Onset Date Comments Discuss Surgery 05/03/2019 Encounter Details Date Type Department Care Team (Late st Contact Info) Description 05/03/2019 Telephone [facility] Neurosurgery - Main [place] [address] [place] [address] Renea Petersen, LAUREL Discuss Surgery Social History Tobacco Use Types Packs/Day Years [...] serious difficulty seeing, even when wearing glasses? No 01/19/2019 Do you have serious difficul ty walking [...] Telephone Encounter - Renea Petersen RN - 05/03/2019 1617 EST Patient Education Topic: L3-5 Fusion Method: Verbal, Written, Phone Call Taught to: Patient Barriers: None Outcomes: independent PREPARING FOR SURGERY, A patient's guide was reviewed with the patient. Smoking cessation guidelines per patient guide unless otherwise documented by Physician. The patient was encouraged to reviewall instructions at home. Medications reviewed and reconciled Advised patient to DC all NSAIDS, vitamins and herbal supplements 7 days prior to procedure. Aspirin/Antiplatelet therapy- on Eliquis- PCP gave OK to stop 3 days prior to surgery. Patient instructed to stop all OTC aspirin 7 days prior to surgery. Immunosuppressive therapy- none Insulin/oral hypoglycemic agents- none DEYSI inhibitor/ARB therapy - none Post-Op instructions reviewed. Collar/braces: no Advanced directive information provided. Pain Consult: no MRSA/MSSA protocol: N/A AGREEMENT FOR POST-OPERATIVE NON-INVASIVE VENTILATION- N/A Signature: April BARRAGAN Patient confirms he was given pre-op packet- contents reviewed. Confirmed with patient that surgeryis on 05/10. Discussed with patient pre and post-op instructions. Patient verbalized understanding and denied any questions. Patient encouraged to contact the office with any questions/concerns. * Telephone Encounter - Renea Petersen RN - 05/03/2019 1226 EST Received call from patient wanting to confirm his surgery date. documented in this encounter Plan of Treatment Not on file documented as of this encounter Visit Diagnoses Not on filedocumented in this encounter Care Teams Learning Consultant Relationship Specialty Start Date End Date Garcia Gonzales MD [address] [place], [place] [id number] PCP - General 09/03/09 documented as of this encounter
--- OUTSIDE RECORDS SUMMARY | 2024-01-20 01:06 | XMS_ITS | Encounter Summary ---
Author Organization [facility] Address [address] [place] [address] Care Team Providers Care Steam Shovel Operating Engineer Name Role Phone Garcia Gonzales MD Primary Care Provider [phone] Encounter Details Date Type Department Care Team (Late st Contact Info) Description 05/03/2019 Pre-Procedure Orders Encounter [facility] Neurosurgery - [address] [id number] Queta Hall PA-C [address] [place] [address], [address] [place] [address] Spinal stenosis of lumbar region, unspecified whether neurogenic claudication present (Primary Dx) Social History Tobacco Use Types [...] as of this encounter Visit Diagnoses Diagnosis Spinal stenosis of lumbar region, unspecified whether neurogenic claudication present- Primary documented in this encounter Care Teams Steam Shovel Operating Engineer Relationship Specialty Start Date End Date Garcia Gonzales MD [address] [place] [address] PCP - General 09/03/09 documented as of this encounter
--- OUTSIDE RECORDS SUMMARY | 2024-01-20 01:06 | XMS_ITS | Encounter Summary ---
Author Organization [facility] Address [address] [place] [address] Care Team Providers Care Blockman Name Role Phone Garcia Gonzales MD Primary Care Provider Reason for Referral * PT/OT/ST (Routine) - Closed Specialty Diagnoses / Procedures Referred By Lucia t Referred To Contact Diagnoses Cervical arthritis with myelopathy Caleb Ahumada MD [address] [place] [phone] Referral ID Status Reason Start Date Expiration Date V isits Requested Visits Authorized [id number] Closed Specialty Services Required 02/09/2019 1 1 Question Answer Reason for Request: strengthening after cervical fusion Reason for Visit * Reason Comments Post-OP Follow Up C7-T1 fusion * Consult (Routine) - Closed Specialty Diagnoses / Procedures Referred By Contac t Referred To Contact Neurosurgery Diagnoses Cervical spondylosis with radiculopathy Murray Gomes MD [address] [place] [phone] Caelb Ahumada MD [address] [place] [phone] Referral ID Status Reason Start Date Expiration Date V isits Requested Visits Authorized [id number] Closed Specialty Services Required 01/20/2019 1 1 Encounter Details Date Type Department Care Team (Late st Contact Info) Description 02/09/2019 15:15 EDT Post-op Visit [facility] Neurosurgery - Main [address] [id number] Caleb Ahumada MD [address] [place] [address], [address] [place] [address] Cervical arthritis with myelopathy (Primary Dx) Discharge Disposition: Auto Discharge Social History Tobacco Use Types Packs/Day Years Used Date Smoking Tobacco: Former Smokeless Tobacco: Never Comments:quit 41 years ago Sex and Gender Information Value Date Recorded Sex Assigned at Not on file Gender Identity Male 06/01/2019 13:40 EST Sexual Orientation Not on file documented as of this encounter Last Filed Vital Signs Vital Sign Reading Time Taken Comments Blood Pressure 140/86 02/09/2019 1505 EDT Pulse 84 02/09/2019 1505 EDT Temperature - - Respiratory Rate 12 02/09/2019 1505 EDT Oxygen Saturation - - Inhaled Oxygen Concentration - - Weight 102.1 kg (225 lb) 02/09/2019 1505 EDT Height 177.8 cm (5' 10) 02/09/2019 1505 EDT Body Mass Index 32.28 02/09/2019 1505 EDT documented in this encounter Functional Status Functional [...] 01/19/2019 documented as of this encounter Discharge Diagnoses Diagnosis M48.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, cervicothoracic region-M48.03[ICD-10-CM] M43.22 Fusion of spine, cervical region-M43.22[ICD-10-CM] M71.38 Other bursal cyst, other site-M71.38[ICD-10-CM] documented in this encounter Discharge Disposition Disposition Code Departure Means Destination Auto Discharge documented in this encounter Progress Notes * Robi Ahumada MD - 02/09/2019 1515 EDT 3 weeks sp C4-T2 instrumented fusion and laminectomy C7-T1 Feels well. Minimal pain. Hands better sensation and more dexterous. VAS 1/1/0/2. Full power both deltoids, biceps, triceps, enrollment management director and BLE No hyperreflexia Denies abnormalities of sensation XR show satisfactory alignment Doing well. Still has lumbar stenosis/scoliosis/spondylolisthesis with neurogenic claudication. Will Rx PT and see again in 2 months. If doing well, can contemplate lumbar laminectomy and instrumented fusion L2-5 as detailed previously. documented in this encounter Plan of Treatment Scheduled Referrals Name Type Priority Associated Diagnoses Orde r Schedule AMB CONS/FOLLOW UP PHYSICAL THERAPY Outpatient Referral Routine Cervical arthritis with myelopathy Ordered: 02/09/2019 documented as of this encounter Visit Diagnoses Diagnosis Cervical arthritis with myelopathy- Primary documented in this encounter Historical Medications * This list may reflect changes made after this encounter. Medication Sig Dispensed Refills Start Date End Date apixaban (ELIQUIS) 5 mg tablet Take 5 mg by mouth 2 times daily. 06/06/2019 added in this encounter Care Teams Blockman Relationship Specialty Start Date End Date Garcia Gonzales MD [address] [place] [address] PCP - General 09/03/09 documented as of this encounter
--- OUTSIDE RECORDS SUMMARY | 2024-01-20 01:06 | XMS_ITS | Encounter Summary ---
Author Organization [facility] Address [address] [place] [address] Care Team Providers Care Seat Pack Inspector Name Role Phone Garcia Gonzales MD Primary Care Provider [phone] Reason for Visit * Reason Onset Date Comments Discuss Surgery 2019 Encounter Details Date Type Department Care Team (Late st Contact Info) Description 2019 Telephone [facility] Neurosurgery - Main [place] [address] [place] [address] Brigette Moser, LAUREL Discuss Surgery Social History Tobacco Use [...] * Telephone Encounter - Awa Hurley - 2019 1547 EDT Spoke with Tanya and let her know that I am faxing the preop requirements to patient's PCP, Dr. Gonzales, today. Tanya verbalized understanding. * Telephone Encounter - Brigette Moser RN - 2019 1059 EDT Calling for pre-op labs and H&P forms. What does my Doctor have to do? documented in this encounter Plan of Treatment Not on file documented as of this encounter Visit Diagnoses Not on filedocumented in this encounter Care Teams Seat Pack Inspector Relationship Specialty Start Date End Date Garcia Gonzales MD [address] [place] [address] PCP - General 09/03/09 documented as of this encounter
--- OUTSIDE RECORDS SUMMARY | 2024-01-20 01:06 | XMS_ITS | Encounter Summary ---
Author Organization [facility] Address [address] [place] [address] Care Team Providers Care Social Work Nurse Name Role Phone Garcia Gonzales MD Primary Care Provider [phone] Encounter Details Date Type Department Care Team (Late st Contact Info) Description 06/03/2015 Results Only [facility] [phone] [place] Shelley, DO [address] [facility] [address] [place], [place] [id number] Social History Tobacco Use Types Packs/Day Years Used Date Smoking Tobacco: Never Assessed Sex and Gender Information Value Date Recorded Sex Assigned at Not on file Gender Identity Male 06/01/2019 13:40 EST Sexual Orientation Not on file documented as of this encounter Plan of Treatment Not on file documented as of this encounter Procedures Procedure Name Priority Date/Time Associated Diagnosis Comments SURGICAL PATHOLOGY Routine 06/03/2015 8:19 EST documented in this encounter Results * SURGICAL PATHOLOGY (06/03/2015 8:19 EST) Pathology Report: SURGICAL PATHOLOGY REPORT Reports generated via electronic interface contain original data; however they are lacking the format of the original report. Caution should be taken when reading/interpret ing unformatted reports. Name: ? SINDY SAM Ana Maria ? Accession #: ? [id number] ? : ? 1945 (Age: 70) ??M ? Collect Date: ? 06/03/2015 ? Location: ? [facility] ? Receive Date: ? 06/04/2015 ? Provider: JASPER SHELLEY DO Copy to: GARCIA GONZALES MD ? Final Pathologic Diagnosis: A. ??COLON, TRANSVERSE, POLYPS, BIOPSY: - Fragments of tubular adenoma(s). B. ??COLON, CECUM, POLYP, BIOPSY: - Tubular adenoma. C. ??ILEOCECAL VALVE, POLYPS, BIOPSY: - Tubular adenomas. D. ??COLON, ASCENDING, POLYP, BIOPSY: - Tubular adenoma. E. ??COLON, HEPATIC FLEXURE, POLYP, BIOPSY: - Fragments of tubular adenoma. F. ??COLON, SPLENIC FLEXURE, POLYP, POLYPECTOMY: - Sessile serrated adenoma. G. ??COLON, SIGMOID, POLYP, BIOPSY: - Hyperplastic polyp. H. ?? RECTUM, DISTAL, POLYP, BIOPSY: - Hyperplastic polyp with superimposed features of mucosal prolapse. ?? Document reviewed and electronically signed by: DEVIN MERINO MD Report ??Date: 06/07/2015 16:23 By the signature above, the attending physician certifies that he/she has personally conducted a gross and/or microscopic examination of the described specimens and rendered or confirmed the above diagnosis. Specimen(s) Received: A. ?Transverse colon polyps x3 B. ? Cecal polyp C. ? Ileocecal valve polyps x2 D. ??Ascending colon polyp E. ??Hepatic flexure polyp F. ??Splenic flexure polyp G. ??Sigmoid polyp H. ??Distal rectal polyp Clinical History: Colorectal screening Gross Description: A. ?Received in formalin labelled with proper patient identification (initials H, D) and transverse colon polyps x3 are four pink-reardon tissues (0.2 x 0.2 x 0.1 cm to 0.3 x 0.3 x 0.2 cm). Entirely submitted in A1 and A2. B. ?Received in formalin labelled with proper patient identification (initials H, D) and cecal polyp is a single pink-reardon tissue fragment (0.3 x 0.2 x 0.2 cm). Submitted intact in B1. C. ?Received in formalin labelled with proper patient identification (initials H, D) and ileocecal valve polyps x2 are two pink-reardon tissues (0.4 x 0.2 x 0.2 cm and 0.5 x 0.2 x 0.2 cm). Entirely submitted in C1. D. ?Received in formalin labelled with proper patient identification (initials H, D) and ascending colon polyp is a single pink-reardon tissue fragment (0.5 x 0.2 x 0.2 cm). Submitted intact in D1. E. ?Received in formalin labelled with proper patient identification (initials H, D) and hepatic flexure polyp is a single pink-reardon tissue fragment (0.4 x 0.2 x 0.2 cm). Submitted intact in E1. F. ?Received in formalin labelled with proper patient identification (initials H, D) and splenic flexure polyp is a single pink-reardon polypoid tissue (0.8 x 0.7 x 0.3 cm). The margin is inked blue. ??The specimen is trisected and entirely submitted in F1. G. ?Received in formalin labelled with proper patient identification (initials H, D) and sigmoid polyp is a single reardon-brown polypoid tissue (0.6 x 0.5 x 0.3 cm). The margin is inked blue. ??The specimen is bisected and entirely submitted in G1. H. ?Received in formalin labelled with proper patient identification (initials H, D) and distal rectal polyp are two pink-reardon tissues (0.3 x 0.2 x 0.2 cm and 0.4 x 0.1 x 0.1 cm). Entirely submitted in H1. Aure Whitehead 06/04/2015 10:51 AM End of Report [facility] 06/03/2015 8:19 EST 06/04/2015 8:19 EST [place] Shelley DO PATHOLOGY ORDER KAYLIE [facility] [address] [place] [address] documented in this encounter Visit Diagnoses Not on filedocumented in this encounter Care Teams Social Work Nurse Relationship Specialty Start Date End Date Garcia Gonzales MD [address] [place], [place] [id number] PCP - General 09/03/09 documented as of this encounter
--- OUTSIDE RECORDS SUMMARY | 2024-01-20 01:06 | XMS_ITS | Encounter Summary ---
Author Organization [facility] Address [address] [place] [address] Care Team Providers Care Research & Insights Executive Name Role Phone Garcia Gonzales MD Primary Care Provider [phone] Reason for Visit * Reason Onset Date Comments Discuss Surgery 05/30/2019 Encounter Details Date Type Department Care Team (Late st Contact Info) Description 05/30/2019 Telephone [facility] - [address] [address] Caleb Ahumada MD [address] [place] [address], [address] [place] [address] Discuss Surgery Social History Tobacco Use Types Packs/Day Years Used Date Smoking Tobacco: Former Cigarettes 3 15 1 233 - 6969 Smokeless Tobacco: Never Comments:quit 41 years ago [...] * Telephone Encounter - Awa Hurley - 05/30/2019 1352 EST Confirmed the following details with Nakul for his/her surgery on 05/31/[address] Ahumada Check in at 6:00am at registration - located on level 3 Surgery at 7:30am Stop clear liquids at 4:30am No solids after midnight Nakul verbalized understanding and denied having any questions. Nakul is scheduled for his/her POV on 06/26/19 with 11:00am, arrival 10:00am for xrays. documented in this encounter Plan of Treatment Not on file documented as of this encounter Visit Diagnoses Not on filedocumented in this encounter Care Teams Research & Insights Executive Relationship Specialty Start Date End Date Garcia Gonzales MD [address] [place] [address] PCP - General 09/03/09 documented as of this encounter
--- OUTSIDE RECORDS SUMMARY | 2024-01-20 01:06 | XMS_ITS | Encounter Summary ---
Author Organization [facility] Address [address] [place] [address] Care Team Providers Care End Touching Machine Operator Name Role Phone Garcia Gonzales MD Primary Care Provider [phone] Encounter Details Date Type Department Care Team (Late st Contact Info) Description 11/08/2018 Results Only Imaging [facility] [phone] Unknown, Provider, Social History Tobacco Use Types Packs/Day Years Used Date Smoking Tobacco: Never Assessed Sex and Gender Information Value Date Recorded Sex Assigned at Not on file Gender Identity Male 06/01/2019 13:40 EST Sexual Orientation Not on file documented as of this encounter Plan of Treatment Pending Results Name Type Priority Associated Diagnoses Date /Time OUTSIDE IMAGES - MR NEURO Imaging 11/08/2018 9:13 EDT documented as of this encounter Visit Diagnoses Not on filedocumented in this encounter Care Teams End Touching Machine Operator Relationship Specialty Start Date End Date Garcia Gonzales MD [address] [place] [address] PCP - General 09/03/09 documented as of this encounter
--- OUTSIDE RECORDS SUMMARY | 2024-01-20 01:06 | XMS_ITS | Encounter Summary ---
Author Organization [facility] Address [address] [place] [address] Care Team Providers Care Interlibrary Loan Specialist Name Role Phone Garcia Gonzales MD Primary Care Provider [phone] Reason for Visit * Reason Onset Date Comments Medication Questions 01/23/2019 Post-OP Follow Up 01/23/2019 Encounter Details Date Type Department Care Team (Late st Contact Info) Description 01/23/[address] [facility] Neurosurgery - Main [address] [address] Renea Petersen RN Medication Questions ; Post-OP Follow Up Social History Tobacco Use Types Packs/Day Years [...] l, or emotional condition, do you have difficulty doing errands alone such as visiting a doctor's office or shopping? (15 years old or older) No 01/19/2019 Cognitive Status Response Date of Assessm ent Because of a physical, menta l, or emotional condition, do you have serious difficulty concentrating, remembering, or making decisions? (5 years old or older) No 01/19/2019 documented as of this encounter Ordered Prescriptions Prescription Sig Dispensed Refills Start Date End Da te cyclobenzaprine (FLEXERIL) 10 mg tablet Take 1 Tab by mouth 3 times daily as needed for Muscle Spasms. 60 Tab 01/23/2019 05/08/2019 documented in this encounter Miscellaneous Notes * Telephone Encounter - Brigette Moser RN - 01/25/2019 1216 EDT Spoke with the patient and advised him to restart anticoagulant on 02/01. He questioned what to do should another provider advise otherwise. Instructed the patient to have PCP office call Neurosurgery. * Telephone Encounter - Renea Petersen RN - 01/23/2019 1457 EDT Spoke with patient who was notified that per Dr. Ahumada he should be off Eliquis for 2 weeks which would put him at 8/7 for restart. He was also notified that the new script was available for pecan picker. Patient was advised that kathrine can be removed on 02/01 and that PT should be able to do this in home for him but that if would like to come in for staple removal he is welcome to do so. He states that at this point he doesn't feel like he needs the muscle relaxants and isn't taking any narcotics- he is doing well otherwise and has no concerns. Patient was advised that if he wanted to wait and see how he does and not pecan picker the new script that is fine but it is there if needed and to contact the office with any questions or concerns. * Telephone Encounter - Zaynab Ozuna PA - 01/23/2019 1447 EDT The patient should discontinue Robaxin. Flexeril ordered and sent to pharmacy electronically. * Telephone Encounter - Renea Petersen RN - 01/23/2019 1044 EDT Received call from Brandee who states the patient has declined PT as he does not feel he needs it so the have cancelled the referral. She also notes that the patient has some questions about the Robaxin he would like to discuss. Spoke with patient who states the Robaxin makes him feel funny and states that his reports it made him stop breathing several times over night for about 20 secondseach time. The patient also reports that he feels it is causing him to urinate more often (about ever hour) so he isn't getting any sleep. He would like to know if there is something else he could try. He would also like to know when he should restart his Eliquis. documented in this encounter Plan of Treatment Not on file documented as of this encounter Visit Diagnoses Not on filedocumented in this encounter Discontinued Medications Medication Sig Discontinue Reason Start Date End Da te methocarbamol (ROBAXIN) 500 mg tablet Take 2 Tabs by mouth every 8 hours as needed for Muscle Spasms. 01/20/2019 01/23/2019 documented as of this encounter Care Teams Interlibrary Loan Specialist Relationship Specialty Start Date End Date Garcia Gonzales MD [address] [place] [address] PCP - General 09/03/09 documented as of this encounter
--- OUTSIDE RECORDS SUMMARY | 2024-01-20 01:06 | XMS_ITS | Encounter Summary ---
Author Organization [facility] Address [address] [place] [address] Care Team Providers Care Golf Stud Riveter Name Role Phone Garcia Gonzales MD Primary Care Provider [phone] Encounter Details Date Type Department Care Team (Latest Contact Info) Description 11/11/2018 16:08 EDT - 11/11/2018 23:59 EDT Hospital Encounter [address] [address] Unknown, Provider, Discharge Disposition: Home or Self Care Social History Tobacco Use Types Packs/Day Years Used Date Smoking Tobacco: Never Assessed Sex and Gender Information Value Date Recorded Sex Assigned at Not on file Gender Identity Male 06/01/2019 13:40 EST Sexual Orientation Not on file documented as of this encounter Discharge Disposition Disposition Code Departure Means Destination Home or Self Shelter documented in this encounter Plan of Treatment Not on file documented as of this encounter Visit Diagnoses Not on filedocumented in this encounter Care Teams Golf Stud Riveter Relationship Specialty Start Date End Date Garcia Gonzales MD [address] [place] [address] PCP - General 09/03/09 documented as of this encounter
--- OUTSIDE RECORDS SUMMARY | 2024-01-20 01:06 | XMS_ITS | Encounter Summary ---
Author Organization [facility] Address [address] [place] [address] Care Team Providers Care Infection Control Manager Name Role Phone Garcia Gonzales MD Primary Care Provider [phone] Reason for Visit * Reason Onset Date Comments Discuss Surgery 01/16/2019 Encounter Details Date Type Department Care Team (Late st Contact Info) Description 01/16/2019 Telephone [facility] Neurosurgery - Main [place] [address] [place] [address] Brigette Moser RN Discuss Surgery Social History Tobacco Use Types [...] Telephone Encounter - Brigette Moser RN - 01/16/2019 0012 EDT The patient phoned to clarify his check in time. He also questioned when to resume blood thinners post procedure. Advised he would receive instructions for medications upon discharge due to bleeding concerns. Confirmed 6 AM check in time. documented in this encounter Plan of Treatment Not on file documented as of this encounter Visit Diagnoses Not on filedocumented in this encounter Care Teams Infection Control Manager Relationship Specialty Start Date End Date Garcia Gonzales MD [address] [place] [address] PCP - General 09/03/09 documented as of this encounter
--- OUTSIDE RECORDS SUMMARY | 2024-01-20 01:06 | XMS_ITS | Encounter Summary ---
Author Organization [facility] Address [address] [place] [address] Care Team Providers Care Project Intern Name Role Phone Garcia Gonzales MD Primary Care Provider [phone] Encounter Details Date Type Department Care Team (Late st Contact Info) Description 12/20/2018 Results Only Imaging [facility] [phone] Unknown, Provider, Social History Tobacco Use Types [...] No 11/22/2018 documented as of this encounter Plan of Treatment Not on file documented as of this encounter Visit Diagnoses Not on filedocumented in this encounter Care Teams Project Intern Relationship Specialty Start Date End Date Garcia Gonzales MD [address] [place] [address] PCP - General 09/03/09 documented as of this encounter
--- OUTSIDE RECORDS SUMMARY | 2024-01-20 01:06 | XMS_ITS | Encounter Summary ---
Author Organization [facility] Address [address] [place] [address] Care Team Providers Care Track Car Operator Name Role Phone Garcia Gonzales MD Primary Care Provider [phone] Encounter Details Date Type Department Care Team (Late st Contact Info) Description 11/11/2018 Results Only [facility] [phone] Dat Lopez, DO [address] [place], [place] [id number] Social History Tobacco Use Types Packs/Day Years [...] Date/Time Associated Diagnosis Comments SURGICAL PATHOLOGY Routine 11/11/2018 15 :58 EDT documented in this encounter Results * SURGICAL PATHOLOGY (11/11/2018 15:58 EDT) Pathology Report: SURGICAL PATHOLOGY REPORT Reports generated via electronic interface contain original data; however they are lacking the format of the original report. Caution should be taken when reading/interpret ing unformatted reports. Name: ? LALYEDGARDOSINDY Ana Maria ? Accession #: ? [id number] ? : ? 1945 (Age: 73) ??M ? Collect Date: ? 11/11/2018 ? Location: ? [facility] ? Receive Date: ? 11/11/2018 ? Provider: DAT LOPEZ DO Copy to: GARCIA GONZALES MD ? Final Pathologic Diagnosis: A. COLON, CECUM, POLYP, BIOPSY: - Fragments of tubulovillous adenoma. B. COLON, ASCENDING, POLYP AT 80 CM, BIOPSY: - Fragments of tubular adenoma. C. COLON, ASCENDING, POLYP AT 70 CM, BIOPSY: - Fragments of tubular adenoma. D. COLON, SPLENIC FLEXURE, POLYP, BIOPSY: - Tubular adenoma. E. HEMORRHOID, HEMORRHOIDECTOMY: - Thrombosed hemorrhoid. - Overlying squamous mucosa with mild reactive changes; Negative for dysplasia. Document reviewed and electronically signed by: DEVIN MERINO MD Report ??Date: 11/21/2018 10:46 By the signature above, the attending physician certifies that he/she has personally conducted a gross and/or microscopic examination of the described specimens and rendered or confirmed the above diagnosis. Specimen(s) Received: A. ??Cecal polyp B. ??Polyp at 80 cm ascending colon (x6) C. ??Polyp at 70 cm ascending colon (x2) D. ??Splenic flexure polyp E. ??Hemorrhoid Clinical History: Colon cancer screening; multiple polyps; thrombosed hemorrhoid Gross Description: A. ?Received in formalin labelled with proper patient identification (initials H, D) and cecal polyp are three pink-reardon tissues (0.4 x 0.4 x 0.3 cm, 0.4 x 0.4 x 0.3 cm and 0.6 x 0.3 x 0.2 cm). Entirely submitted in A1. B. ?Received in formalin labelled with proper patient identification (initials H, D) and ascending colon polyp at 80 cm x6 are seven pink-reardon tissues (0.2 x 0.2 x 0.2 cm to 0.4 x 0.2 x 0.2 cm). Entirely submitted in B1-B3. C. ??Received in formalin labelled with proper patient identification (initials H, D) and ascending colon polyp at 70 cm are two pink-reardon tissues (0.3 x 0.2 x 0.2 cm and 0.5 x 0.3 x 0.3 cm). Entirely submitted in C1. D. ?Received in formalin labelled with proper patient identification (initials H, D) and splenic flexure polyp are two pink-reardon tissues (0.2 x 0.2 x 0.2 cm and 0.4 x 0.2 x 0.2 cm). Entirely submitted in D1. E. ?Received in formalin labelled with proper patient identification (initials H, D) and hemorrhoid are two irregular fragments of pink-woodruff to old mucosa (0.7 x 0.7 x 0.4 cm and 1.3 x 1 0 x 1.0 cm). The specimen is entirely submitted in E1 (smaller tissue, bisected) and E2 (larger tissue). DAVIN Lopez (ASCP) 11/11/2018 4:30 PM End of Report [facility] 11/11/2018 15:5 8 EDT 11/11/2018 15:58 EDT Dat Lopez DO PATHOLOGY ORDERABLES [facility] [address] [place] [address] documented in this encounter Visit Diagnoses Not on filedocumented in this encounter Care Teams Track Car Operator Relationship Specialty Start Date End Date Garcia Gonzales MD [address] [place] [address] PCP - General 09/03/09 documented as of this encounter
--- OUTSIDE RECORDS SUMMARY | 2024-01-20 01:06 | XMS_ITS | Encounter Summary ---
Author Organization [facility] Address [address] [place] [address] Care Team Providers Care Winder Operator Name Role Phone Garcia Gonzales MD Primary Care Provider Reason for Referral * Radiology Services (Routine) - New Request Specialty Diagnoses / Procedures Referred By Contac t Referred To Contact Diagnoses Spinal stenosis of lumbar region, unspecified whether neurogenic claudication present Procedures L SPINE 4 OR MORE VIEWS Zaynab Hernández PA-C [address] [address] Referral ID Status Reason Start Date Expiration Date V isits Requested Visits Authorized [id number] New Request 11/10/2018 1 1 Reason for Visit * Reason Onset Date Comments Appointment Related 11/10/2018 Encounter Details Date Type Department Care Team (Late st Contact Info) Description 11/10/[address] [facility] Neurosurgery - Main [address] [phone] Caleb Ahumada MD [address] [facility], [address] [place] [address] Appointment Related Social History Tobacco Use Types Packs/Day Years Used Date Smoking Tobacco: Never Assessed Sex and Gender Information Value Date Recorded Sex Assigned at Not on file Gender Identity Male 06/01/2019 13:40 EST Sexual Orientation Not on file documented as of this encounter Miscellaneous Notes * Telephone Encounter - Lizz Adrian - 11/10/2018 1155 EDT Referring office contacted with appointment details: Date: 11/22/18 Arrival time: 1:45pm - xrays first Appt time: 2:45pm Provider: Rios Ahumada MD Location: [address] Referring office to contact patient. Referring office to obtain any and all authorizations needed. NPV packet mailed. documented in this encounter Plan of Treatment Not on file documented as of this encounter Procedures Procedure Name Priority Date/Time Associated Diagnosis Comments L SPINE 4 OR MORE VIEWS Routine 11/22/2018 11:49 EDT Spinal stenosis of lumbar region, unspecified whether neurogenic claudication present documented in this encounter Results * L SPINE 4 OR MORE VIEWS (11/22/2018 11:49 EDT) Anatomical Region Laterality Modality Other 11/22/2018 11:4 9 EDT 11/24/2018 16:52 EDT Narrative 11/24/2018 16:52 EDT L SPINE 4 OR MORE VIEWS, CERVICAL SPINE 4 OR MORE VIEWS ??11/22/2018 11:49 AM CLINICAL HISTORY: M48.061-Spinal stenosis, lumbar region without neurogenic [id number]; lumbar stenosis COMPARISON: Lumbar MRI outside hospital September 23, 2018 TECHNIQUE: 4 views of the cervical spine were obtained. 4 views of the lumbar spine were obtained. FINDINGS: Cervical radiographs show demineralization of the bones. There is straightening of the normal cervical lordosis. There is slight anterolisthesis of C4 over C5 which does not appear to change between flexion and extension. There is diffuse facet arthrosis. There may be partial fusion of multiple facet joints. This would be better evaluated with CT. No fracture or suspicious osseous lesion is identified. No concerning findings in the soft tissues. Lumbar radiographs show diffuse degenerative change with moderate disc height loss throughout. There is grade 1 anterolisthesis of L4 over L5. No significant change on flexion or extension. Diffuse facet arthrosis is present. There is subtle leftward curvature of the lumbar spine with frontal view and mild leftward translation of L4 over L5. Degenerative changes are seen in the sacroiliac joints. There is mild hip arthrosis. No suspicious findings seen in the soft tissues. Some atherosclerotic calcification is present. Procedure Note Carlos Copeland MD, - 11/24/2018 L SPINE 4 OR MORE VIEWS, CERVICAL SPINE 4 OR MORE VIEWS 11/22/2018 11:49 AM CLINICAL HISTORY: M48.061-Spinal stenosis, lumbar region without neurogenic [id number]; lumbar stenosis COMPARISON: Lumbar MRI outside hospital September 23, 2018 TECHNIQUE: 4 views of the cervical spine were obtained. 4 views of the lumbar spine were obtained. FINDINGS: Cervical radiographs show demineralization of the bones. There is straightening of the normal cervical lordosis. There is slight anterolisthesis of C4 over C5 which does not appear to change between flexion and extension. There is diffuse facet arthrosis. There may be partial fusion of multiple facet joints. This would be better evaluated with CT. No fracture or suspicious osseous lesion is identified. No concerning findings in the soft tissues. Lumbar radiographs show diffuse degenerative change with moderate disc height loss throughout. There is grade 1 anterolisthesis of L4 over L5. No significant change on flexion or extension. Diffuse facet arthrosis is present. There is subtle leftward curvature of the lumbar spine with frontal view and mild leftward translation of L4 over L5. Degenerative changes are seen in the sacroiliac joints. There is mild hip arthrosis. No suspicious findings seen in the soft tissues. Some atherosclerotic calcification is present. Zaynab JIN-Loraine IMG DIAGNOSTIC I MAGING ORDERABLES documented in this encounter Visit Diagnoses Diagnosis Spinal stenosis of lumbar region, unspecified whether neurogenic claudication present- Primary documented in this encounter Care Teams Winder Operator Relationship Specialty Start Date End Date Garcia Gonzales MD [address] [place] [address] PCP - General 09/03/09 documented as of this encounter
--- OUTSIDE RECORDS SUMMARY | 2024-01-20 01:06 | XMS_ITS | Encounter Summary ---
Author Organization [facility] Address [address] [place] [address] Care Team Providers Care Polysomnographic Technician Name Role Phone Garcia Gonzales MD Primary Care Provider [phone] Reason for Visit * Reason Onset Date Comments Appointment Related 11/14/2018 Encounter Details Date Type Department Care Team (Late st Contact Info) Description 11/14/2018 Telephone [facility] Neurosurgery - [address] [address] Caleb Ahumada MD [address] [facility], [address] [place] [phone] Appointment Related Social History Tobacco Use Types Packs/Day Years Used Date Smoking Tobacco: Never Assessed Sex and Gender Information Value Date Recorded Sex Assigned at Not on file Gender Identity Male 06/01/2019 13:40 EST Sexual Orientation Not on file documented as of this encounter Miscellaneous Notes * Telephone Encounter - Susana Mackay - 11/14/2018 1131 EDT Spoke to patient and let him know that we have the MRI imaging from [facility]. * Telephone Encounter - Cristy Winter - 11/14/2018 1104 EDT Please call patient He has questions Does he need a prior auth from [facility] As they are the ones that referred him to Dr Matthews. Also Have we received all necessary paperwork needed Along with radiology results Please call To advise documented in this encounter Plan of Treatment Not on file documented as of this encounter Visit Diagnoses Not on filedocumented in this encounter Care Teams Polysomnographic Technician Relationship Specialty Start Date End Date Garcia Gonzales MD [address] [place] [address] PCP - General 09/03/09 documented as of this encounter
--- OUTSIDE RECORDS SUMMARY | 2024-01-20 01:06 | XMS_ITS | Encounter Summary ---
Author Organization [facility] Address [address] [place] [address] Care Team Providers Care Couples Therapist Name Role Phone Garcia Gonzales MD Primary Care Provider [phone] Encounter Details Date Type Department Care Team (Late st Contact Info) Description 01/04/2019 Pre-Procedure Orders Encounter [facility] Neurosurgery - Main [place] [address] [place], [place] [phone] Zaynab Hernández PA-C [address] [address] Cervical spondylosis with myelopathy (Primary Dx); Cervical spondylosis with radiculopathy Social History Tobacco Use Types Packs/Day Years [...] encounter Visit Diagnoses Diagnosis Cervical spondylosis with myelopathy- Primary Cervical spondylosis with radiculopathy Cervical spondylosis with myelopathy documented in this encounter Care Teams Couples Therapist Relationship Specialty Start Date End Date Garcia Gonzales MD [address] [place] [address] PCP - General 09/03/09 documented as of this encounter
--- OUTSIDE RECORDS SUMMARY | 2024-01-20 01:06 | XMS_ITS | Encounter Summary ---
Author Organization [facility] Address [address] [place] [address] Care Team Providers Care Power Plant Installer Name Role Phone Garcia Gonzales MD Primary Care Provider [phone] Reason for Visit * Reason Onset Date Comments Discuss Surgery 12/14/2018 Encounter Details Date Type Department Care Team (Late st Contact Info) Description 12/14/2018 Telephone [facility] Neurosurgery - Main [address] [address] Brigette Moser, LAUREL Discuss Surgery Social History [...] Telephone Encounter - Renea Petersen RN - 12/14/2018 9043 EDT Patient Education Topic: C7-T2 laminectomy and C5-T2 fusion Method: Verbal, Written, Demonstration, Phone Call Taught to: Patient Barriers: None Outcomes: independent PREPARING FOR SURGERY, A patient's guide was reviewed with the patient. Smoking cessation guidelines per patient guide unless otherwise documented by Physician. The patient was encouraged to reviewall instructions at home. Medications reviewed and reconciled Advised patient to DC all NSAIDS, vitamins and herbal supplements 7 days prior to procedure. Aspirin/Antiplatelet therapy - Patient discussed cessation of Eliquis with Dr. Ahumada- aware that he needed to get approval to stop from Dr. Gonzales. Immunosuppressive therapy- none Insulin/oral hypoglycemic agents - none DEYSI inhibitor/ARB therapy- none Post-Op instructions reviewed. Collar/braces: Instructions provided Advanced directive information provided. Pain Consult: no MRSA/MSSA protocol: Patient will speak with PCP about obtaining swab AGREEMENT FOR POST-OPERATIVE NON-INVASIVE VENTILATION- N/A Signature: April BARRAGAN Patient given pre-op packet- contents reviewed. Dr. Ahumada spoke with patient about need to stop Eliquis at office visit on 12/13 and the patient is aware that he needs to get approval from Dr. Jacinto montes prior to surgery. Discussed with patient that he will need a nasal swab for MRSA due to outinfection prevention policy. Patient will speak with PCP to see if they are willing to do this and s end us the results- patient is aware that if not, he will need to come to the clinic to have this done. Discussed with patient pre and post-op instructions. Patient verbalized understanding and denied any questions. Patient encouraged to contact the office with any questions/concerns. * Telephone Encounter - Renea Petersen RN - 12/14/2018 1339 EDT Message left with for patient to call back to discuss surgery. Direct triage line provided. * Telephone Encounter - Brigette Moser RN - 12/14/2018 1254 EDT Follow up call to discuss laminectomy C7-T2, with fusion C5-T2 documented in this encounter Plan of Treatment Not on file documented as of this encounter Visit Diagnoses Not on filedocumented in this encounter Care Teams Power Plant Installer Relationship Specialty Start Date End Date Garcia Gonzales MD [address] [place] [address] PCP - General 09/03/09 documented as of this encounter
--- OUTSIDE RECORDS SUMMARY | 2024-01-20 01:06 | XMS_ITS | Encounter Summary ---
Author Organization [facility] Address [address] [place] [address] Care Team Providers Care Confidential Secretary Name Role Phone Garcia Gonzales MD Primary Care Provider [phone] Reason for Visit * Reason Comments Neck Pain Encounter Details Date Type Department Care Team (Late st Contact Info) Description 12/13/2018 11:00 EDT Office Visit [facility] Neurosurgery - [address] [address] Caleb Ahumada MD [address] [place] [address], [address] [place] [address] Cervical spondylosis with myelopathy and radiculopathy (Primary Dx) Discharge Disposition: Auto Discharge Social [...] No 11/22/2018 documented as of this encounter Discharge Diagnoses Diagnosis M47.12 Other spondylosis with myelopathy, cervical region-M47.12[ICD-10-CM] M47.22 Other spondylosis with radiculopathy, cervical region-M47.22[ICD-10-CM] documented in this encounter Discharge Disposition Disposition Code Departure Means Destination Auto Discharge documented in this encounter Progress Notes * Robi Ahumada MD, MD - 12/13/2018 1100 EDT Mr. Sam returns for followup. We sent him for MRI of the cervical spine because of hyperreflexia noted on examination. Those images are available for review. He has fairly severe stenosis at C7-T1 and T1-T2, as well as anterolisthesis at these levels. He appears to have spontaneous arthrodesis of C5 through C7. On further questioning today, the patient does admit to some clumsiness. He has difficulty turning the pages of a magazine. He will get cramping of his hands. He has paresthesias in the 5th digit of the left hand. He also has some wasting of the first dorsal interosseous muscle on the left. In addition to these symptoms, he continues to be bothered by fairly classic claudicant back and leg pain that is likely attributable to the lumbar stenosis, spondylolisthesis, and scoliosis as outlined in my previous note. NDI 15/50, VAS 0/0/0/2 (consideration of surgery for myeloradiculoapthy, not neck pain) KAMILLA 18/50, VAS 2/3/2/4 I did repeat a physical examination today. Upper extremity strength is full except for 4/5 weaknessin the hand intrinsics on the left. As noted above, there is wasting of the 1st webspace in the left hand. He continues to have a trace Kramer's reflex on the right, and additionally I have noticed 3+ hyperreflexia at the knees today. He is unable to tandem walk. I had a lengthy discussion with Mr. Sam and his about the fact that he has cervicothoracicmyeloradiculopathy, as well as neurogenic claudication. I explained that, generally speaking, we favor addressing neck issues prior to low back issues because of the risk of intraoperative positioning injury. In his case, with the autogenous fusion of C5 through C7, surgical treatment would entail laminectomy of C7 through T2 with instrumented fusion from C5 to T2. I reviewed the risks of this surgery and the patient has elected to go forward. I am hopeful that approximately 3 months after surgery, after a reasonable amount of recovery, that we could then proceed to the multilevel lumbar decompression and fusion that was discussed previously. The patient is on Eliquis and will need to have that stopped for surgery. We will have him cleared by Dr Gonzales prior to proceeding. All questions were answered. Twenty-five minutes of this 40 minute [id number] visit were spent in patient counseling. documented in this encounter Plan of Treatment Not on file documented as of this encounter Visit Diagnoses Diagnosis Cervical spondylosis with myelopathy and radiculopathy- Primary documented in this encounter Care Teams Confidential Secretary Relationship Specialty Start Date End Date Garcia Gonzales MD [address] [place] [id number] PCP - General 09/03/09 documented as of this encounter
--- OUTSIDE RECORDS SUMMARY | 2024-01-20 01:06 | XMS_ITS | Encounter Summary ---
Author Organization [facility] Address [address] [place] [address] Care Team Providers Care Boiler Tube Blower Name Role Phone Garcia Gonzales MD Primary Care Provider [phone] Reason for Visit * Reason Onset Date Comments Appointment Related 02/17/2019 Encounter Details Date Type Department Care Team (Late st Contact Info) Description 02/17/2019 Telephone [facility] - Main [place] [address] [place] [address] Brigette Moser RN Appointment Related Social History Tobacco Use [...] * Telephone Encounter - Awa Hurley - 02/17/2019 1123 EDT Confirmed [facility] Neurology/Neurosurgery (Mehdi Matthews MD) was the referring office and faxednotes as requested. * Telephone Encounter - Brigette Moser RN - 02/17/2019 1044 EDT Call from outside provider requesting DC summary op notes. documented in this encounter Plan of Treatment Not on file documented as of this encounter Visit Diagnoses Not on filedocumented in this encounter Care Teams Boiler Tube Blower Relationship Specialty Start Date End Date Garcia Gonzales MD [address] [place] [address] PCP - General 09/03/09 documented as of this encounter
--- OUTSIDE RECORDS SUMMARY | 2024-01-20 01:06 | XMS_ITS | Encounter Summary ---
Author Organization [facility] Address [address] [place] [address] Care Team Providers Care Hand Brim Ironer Name Role Phone Garcia Gonzales MD Primary Care Provider [phone] Reason for Visit * Auth/Cert Specialty Diagnoses / Procedures [facility] Referred To Contact Diagnoses Spinal stenosis, lumbar region with neurogenic claudication Procedures DE ARTHRODESIS POSTERIOR/POSTEROLATERAL LUMBAR DE SPINE FUSN,POST TECH,EA ADDNL SGMT DE LAMINECTOMY,>2 SGMT,LUMBAR DE POSTERIOR SEGMENTAL INSTRUMENTATION 3-6 VRT SEG DE ALLOGRAFT FOR SPINE SURGERY ONLY STRUCTURAL lumbar laminectomy L1-2 through L4-5, L3-5 instrumented fusion with the use or possible use of allograft . . . . Referral ID Status Reason Start Date Expiration Date Visits Re quested Visits Authorized [id number] 1 1 Encounter Details Date Type Department Care Team (Late st Contact Info) Description 05/31/2019 7:37 EST Anesthesia Event [facility] OR [address] [place] [address] [id number] Jose Armando Cano MD Quill, Cathryn M, STORES DESPATCH HAND [address] [facility], [address] [place] [id number] Anesthesia Record Procedure Summary Procedure Name Responsible Anesthesiologist Anesthesia Start Time Anesthesia Stop Time lumbar laminectomy L1-2 through L4-5, L3-5 instrumented fusion with the use or possible use of allograft (Spine Lumbar) Jose Armando Cano MD 05/31/19 0737 05/31/19 1535 Events Date Time Event Comment 05/31/2019 0737 An Start 0737 An Start Data 0746 An Induction The patient was reevaluated immediately before moderate or deep sedation use and before anesthesia induction. 0748 An Intubation 0751 Anesthesia Ready 1327 Leroy Antonina hugger and fluid warmer off 1426 An Data Art 1521 An Extubation 1521 an stop data 1535 Handoff to RN I completed my handoff to the receiving nurse during which we: 1. Identified the patient 2. Identified the responsible provider 3. Reviewed the pertinent medical history 4. Discussed the surgical course 5. Reviewed intra-op anesthesia management and issues during anesthesia 6. Set expectations for post-procedure period 7. Allowed opportunity for questions and acknowledgement of understanding. 1535 Handoff to RN I completed my handoff to the receiving nurse during which we: 1. Identified the patient 2. Identified the responsible provider 3. Reviewed the pertinent medical history 4. Discussed the surgical course 5. Reviewed intra-op anesthesia management and issues during anesthesia 6. Set expectations for post-procedure period 7. Allowed opportunity for questions and acknowledgement of understanding. 1535 An Stop Meds Name Total fentanyl citrate (PF) injection 100 mcg HYDROmorphone (DILAUDID) injection 2 mg/ 1 mL 1.2 mg lidocaine injection 2 % 100 mg rocuronium (ZEMURON) injection 10 mg/mL 100 mg propOFol (DIPRIVAN) injection 350 mg ketAMINE (KETALAR) IV injection - OR syr jesenia 50 mg phenylephrine inj 100 mcg/ml syringe 1,7 60 mcg ondansetron (PF) (ZOFRAN) injection 4 mg lactated ringers (LR) infusion Cannot be calculated ceFAZolin (ANCEF) syringe 2 g 6 g lidocaine 2000 mg/500 mL infusion 804 mg phenylephrine (TYRONE-SYNEPHRINE) infusion in NS 15,130 mcg lactated ringers (LR) infusion 2,600 mL * Agents Name Insp Sevoflurane Exp Sevoflurane O2 N2O Air * Blood No blood administrations on file. Lines, Drains, and Airways Type Details Placement Removal Full Thickness 01/18/19; 09; Surg ical; Posterior; Neck; C5-T2 vertical incision 01/18/19 09 by Bal Bose, senior analyst programmer 05/31/19; 0837; Inci jose; Lower, Midline; Back; Surgical incision for Lumbar decompression and instrumented fusion; N; Full thickness 05/31/19 0837 by Celsa Sanders, LAUREL Closed/Suction Drain 06/01/19; 1900 (pt does not have drains) 05/31/19 1043 by Celsa Sanders RN 06/01/19 1900 by Cristy Mckay RN Peripheral IV 05/31/19; 0709; 01/13; Left, Dorsal; Hand; Inserted by RN; 1; None; 3.15% Chlorhexidine with IPA; 06/01/19; 1430; Infiltrated; No complications 05/31/19 0709 by Dedra Javier RN 06/01/19 1430 by Zaynab Aguilera RN Urethral Catheter 05/31/19; 0800; Inse rted by RN; Selected surgical procedures/Epidural; Non-latex; 16 fr; 10 ml; Yes; 06/02/19; 0857 05/31/19 0800 by Celsa Sanders RN 06/02/19 0857 by Zaynab Aguilera RN Non-Surgical Airway 05/31/19; 0810 (dawit arriaga via procedure documentation); 05/31/19; 1521 05/31/19 0810 by Clementina David CRNA 05/31/19 1521 by Celmentina David CRNA Peripheral IV 05/31/19; 0912; Othe r (Comment) (harry); Right; Hand; At bedside by Provider (Loraine Coleman CRNA); 1; 06/02/19; 1000; Leaking; No complications 05/31/19 0912 by Clementina David CRNA 06/02/19 1000 by Zaynab Aguilera RN documented in this encounter Social History Tobacco Use Types Packs/Day Years [...] No 01/19/2019 documented as of this encounter OR Notes * Anesthesia Postprocedure Evaluation - Clementina David APRN - 05/31/2019 1535 EST Patient: Nakul Sam Last Vitals Vital signs were reviewed with the recovery nurse and are available in the Epic flowsheets. Last Pain Score - Type of Anesthesia - general Anesthesia Post Evaluation Post-procedure vitals reviewed and are stable. Level of consciousness: alert and oriented Temperature status: normothermia Respiratory status: airway patent and nasal cannula Cardiovascular status: acceptable Hydration status: adequate Nausea/Vomiting: none Pain management: adequate Post-Op Assessment: patient tolerated procedure well with no complications Patient participation: able to participate Disposition: inpatient Anesthesia Complications: No apparent anesthesia complications * Anesthesia Procedure Notes - Clementina David APRN - 05/31/2019 0809 EST Associated Order(s): Airway Airway Date/Time: 05/31/2019 7:48 Urgency: elective Airway not difficult General Information and Staff Patient location during procedure: OR Anesthesiologist: Jose Armando Cano MD Resident/STORES DESPATCH HAND: Clementina David APRN Performed: resident/STORES DESPATCH HAND/AA Indications and Patient Condition Indications for airway management: anesthesia Sedation level: GA Preoxygenated: yes Patient position: sniffing Ventilation assessment: 2 - Oral airway inserted Final Airway Details Final airway type: endotracheal airway Successful airway: ETT Cuffed: yes Successful intubation technique: video laryngoscopy [place] Facilitating devices/methods: intubating stylet Endotracheal tube insertion site: oral Blade size: #4 ETT size (mm): 7.5 Cormack-Lehane Classification: grade I - full view of glottis Placement verified by: chest auscultation and capnometry Cuff volume (mL): 6 Number of attempts at approach: 1 * Anesthesia Preprocedure Evaluation - Clementina David APRN - 05/31/2019 0730 EST Anesthesia Preprocedure Evaluation Patient Medical History, including Anesthesia History reviewed. Chart and Nursing Notes reviewed, including NPO status and Medication History. Additional ROS/History Findings: Allergies Allergen Reactions ??? Methocarbamol Anaphylaxis and Other (See Comments) stopped breathing ??? Cyclobenzaprine Pt does not remember-wild MARQUES? Nsaids (Non-Steroidal Anti-Inflammatory Drug) GI upset ??? Other - See Comments opoids feels like I'm flying around the room, hallucinations. ??? Oxycodone ??? Tramadol ??? Vicodin [Hydrocodone-Acetaminophen] Review of Systems Past Medical History: Diagnosis Date ??? A-fib ([facility]) dx in 2014, controlled well ??? Anesthesia complication 12/2018 Pt states he took methocarbamal after surgery and kept having periods of apneia per his . ??? Asthma due to seasonal allergies ??? Hyperlipidemia ? ? Nausea & vomiting ??? Open wound of armpit region with tendon involvement ??? Spinal stenosis Relevant Problems No relevant active problems Physical Exam Airway Mallampati: III TM distance: >3 FB Neck ROM: full Cardiovascular Dental Comments: Poor dentition, missing teeth Pulmonary - normal exam Abdominal Anesthesia Plan ASA 3 Anesthesia Type - general, to include intravenous induction. Anesthesia plan and risks discussed. Informed consent obtained from patient. PAT Note (Notes from 05/01/19 through 05/31/19) No notes of this type exist for this encounter. documented in this encounter Plan of Treatment Not on file documented as of this encounter Procedures Procedure Name Priority Date/Time Associated Diagnosis Comments ANESTHESIA INTUBATION Routine 05/31/2019 8:09 EST documented in this encounter Results * DE AN ELECTIVE ENDOTRACHEAL AIRWAY (05/31/2019 8:09 EST) Narrative Clementina David APRN - 05/31/2019 8:09 EST Clementina David APRN ? 05/31/2019 ??8:10 Airway Date/Time: 05/31/2019 7:48 Urgency: elective Airway not difficult General Information and Staff Patient location during procedure: OR Anesthesiologist: Jose Armando Cano MD Resident/STORES DESPATCH HAND: Clementina David APRN Performed: resident/STORES DESPATCH HAND/AA Indications and Patient Condition Indications for airway management: anesthesia Sedation level: GA Preoxygenated: yes Patient position: sniffing Ventilation assessment: 2 - Oral airway inserted Final Airway Details Final airway type: endotracheal airway Successful airway: ETT Cuffed: yes Successful intubation technique: video laryngoscopy [place] Facilitating devices/methods: intubating stylet Endotracheal tube insertion site: oral Blade size: #4 ETT size (mm): 7.5 Cormack-Lehane Classification: grade I - full view of glottis Placement verified by: chest auscultation and capnometry Cuff volume (mL): 6 Number of attempts at approach: 1 Jose Armando Cano MD ANESTHESIA ORDERABLE S documented in this encounter Visit Diagnoses Not on filedocumented in this encounter Administered Medications Inactive Administered Medications - up to 3 most recent administrations Medication Order MAR Action Action Date Dose Rate Site ceFAZolin (ANCEF) syringe 2 g 2 g, intravenous, Administer over 10 Minutes, PRE-OP ONCE, 1 dose, On Wed05/31/19 at 0745, Routine, Preprocedure Given 05/31/2019 14:17 EST 2 g Given 05/31/2019 11:17 EST 2 g Given 05/31/2019 8:15 EST 2 g fentaNYL citrate (PF) injection intravenous, PRN, Starting on Wed05/31/19 at 0746, Until Wed05/31/19 at 1535, Routine, Anesthesia Intraprocedure Given 05/31/2019 7:46 EST 100 mcg HYDROmorphone (DILAUDUD) 2 mg/mL injection intravenous, PRN, Starting on Wed05/31/19 at 1134, Until Wed05/31/19 at 1535, Routine, Anesthesia Intraprocedure Given 05/31/2019 12:17 EST 0.4 mg Given 05/31/2019 11:38 EST 0.4 mg Given 05/31/2019 11:34 EST 0.4 mg ketAMINE (KETALAR) 50 mg/5 mL (10 mg/mL) IV injection - OR syringe intravenous, PRN, Starting on Wed05/31/19 at 0746, Until Wed05/31/19 at 1535, Routine, Anesthesia Intraprocedure Given 05/31/2019 7:46 EST 50 mg lactated ringers (LR) infusion 30 mL/hr, intravenous, CONTINUOUS, Starting on Wed05/31/19 at 0745, Until Wed06/02/19 at 0515, Routine, Preprocedure New Bag 05/31/2019 8:43 EST New Bag 05/31/2019 7:37 EST New Bag 05/31/2019 7:10 EST 30 mL/hr 30 mL/hr lactated ringers (LR) infusion intravenous, FA IP EQF CONTINUOUS PRN FOR ONE STEP MEDS, Starting on Wed05/31/19 at 0851, Until Wed05/31/19 at 1535, Routine, Anesthesia Intraprocedure New Bag 05/31/2019 8:51 EST lidocaine 20 mg/mL (2 %) injection other, PRN, Starting on Wed05/31/19 at 0746, Until Wed05/31/19 at 1535, Routine, Anesthesia Intraprocedure Given 05/31/2019 7:46 EST 100 mg lidocaine 2000 mg/500 mL infusion FA IP EQF CONTINUOUS PRN FOR ONE STEP MEDS, Starting on Wed05/31/19 at 0825, Until Wed05/31/19 at 1535, Routine, Anesthesia Intraprocedure New Bag 05/31/2019 8:25 EST 2 mg/min 30 mL/hr ondansetron (PF) (ZOFRAN) injection intravenous, PRN, Starting on Wed05/31/19 at 1450, Until Wed05/31/19 at 1527, Routine, Anesthesia Intraprocedure Given 05/31/2019 14:50 EST 4 mg phenylephrine HCl in 0.9% NaCl (NEO_SYNEPHRINE) 20 mg/250 mL (80 mcg/mL) infusion solution FA IP EQF CONTINUOUS PRN FOR ONE STEP MEDS, Starting on Wed05/31/19 at 0915, Until Wed05/31/19 at 1535, Routine, Anesthesia Intraprocedure Rate Change 05/31/2019 13:58 EST 60 mcg/min 45 mL/h r Rate Change 05/31/2019 12:17 EST 50 mcg/min 37.5 mL/hr Rate Change 05/31/2019 9:35 EST 40 mcg/min 30 mL/hr phenylephrine HCl in 0.9% NaCl injection iv push, PRN, Starting on Wed05/31/19 at 0843, Until Wed05/31/19 at 1535, Routine, Anesthesia Intraprocedure Given 05/31/2019 15:16 EST 160 mcg Given 05/31/2019 15:07 EST 80 mcg Given 05/31/2019 15:05 EST 80 mcg propOFol (DIPRIVAN) injection intravenous, PRN, Starting on Wed05/31/19 at 0746, Until Wed05/31/19 at 1535, Routine, Anesthesia Intraprocedure Given 05/31/2019 10:47 EST 50 mg Given 05/31/2019 10:18 EST 50 mg Given 05/31/2019 7:54 EST 50 mg rocuronium (ZEMURON) injection intravenous, PRN, Starting on Wed05/31/19 at 0747, Until Wed05/31/19 at 1535, Routine, Anesthesia Intraprocedure Given 05/31/2019 9:45 EST 30 mg Given 05/31/2019 7:47 EST 70 mg documented in this encounter Care Teams Hand Brim Ironer Relationship Specialty Start Date End Date Garcia Gonzales MD [address] [place] [address] PCP - General 09/03/09 documented as of this encounter
--- OUTSIDE RECORDS SUMMARY | 2024-01-20 01:06 | XMS_ITS | Encounter Summary ---
Author Organization [facility] Address [address] [place] [address] Care Team Providers Care Armed Security Professional Name Role Phone aGrcia Gonzales MD Primary Care Provider [phone] Reason for Visit * Reason Comments Neck Pain C7-T1 Encounter Details Date Type Department Care Team (Late st Contact Info) Description 04/11/2019 11:00 EDT Post-op Visit [facility] Neurosurgery - [address] [address] Caleb Ahumaad MD [address] [facility], [address] [place] [phone] Lumbar stenosis with neurogenic claudication (Primary Dx) Discharge Disposition: Auto Discharge Social [...] as of this encounter Discharge Diagnoses Diagnosis M48.062 Spinal stenosis, lumbar region with neurogenic claudication-M48.062[ICD-10-CM] documented in this encounter Discharge Disposition Disposition Code Departure Means Destination Auto Discharge documented in this encounter Progress Notes * Robi Ahumada MD - 04/11/2019 1100 EDT Clinic Note Mr Sam returns for followup. He is now almost 3 months status post C4 to T2 posterior instrumented fusion with decompression. He reports that he is generally doing well. He has minimal neck pain.He feels that the numbness in his arms is diminished, though it is not yet gone. His dexterity is about the same. His current neck disability index is 11/50. His pain scores for his neck are 1/1/0/3. We spent much of today talking about his low back. As detailed in previous notes, he does have claudicant back and bilateral leg pain. His imaging is notable for central stenosis L1-L2 through L4-L5 with a modest degenerative scoliosis, as well as a grade 1 degenerative anterolisthesis at L4-L5. Hedoes have foraminal stenosis at L3-L4 and L4-L5. His Oswestry disability index is 21/50, and his low back pain scores are 1/4/1/5. On physical examination, he has 5/5 power in the deltoid, biceps, triceps, telecom assistant, iliopsoas, quadriceps, dorsiflexors, EHL and plantar flexors. He has some mild numbness of his forearms. He has normalreflexes in the upper extremities. His patellar reflexes are slightly brisk. He does not have clonus. Most of today's visit was spent discussing a possible lumbar operation. Upon further review of his imaging, I think he would be best served with a decompression from the lower part of L1 through the upper part of L5. Because of the degenerative scoliosis and anterolisthesis at L4-L5 and because he has foraminal stenosis at L3-L4 and L4-L5, I would favor combining this with an L3 through L5 instrumented fusion. I do not think we necessarily need to instrument the upper lumbar levels. I reviewed the risks of surgery and the surgical consent was signed at this time. Please note that the patient reports significant problems with delirium and hypoventilation with narcotics and muscle relaxants. He initially indicated that he wanted to try to do this operation without any narcotic or muscle relaxant at all. I suggested that that likely would result in out of control pain. I suggested that perhaps trying a lower dose regimen may be a more prudent way to go. He indicated that he has had morphine in the past without a problem, but I suspect this is more related to dose rather than the particular narcotic that was used. In any event, we will proceed carefully with perioperative narcotics and address things from there. The patient indicated he would like to avoid a DIRECTOR OF MEDICAL EDUCATION and instead use nursing dosing. Twenty-five minutes of this 45-minute [id number] visit was spent in patient counseling. documented in this encounter Plan of Treatment Not on file documented as of this encounter Visit Diagnoses Diagnosis Lumbar stenosis with neurogenic claudication- Primary Spinal stenosis, lumbar region, with neurogenic claudication documented in this encounter Care Teams Armed Security Professional Relationship Specialty Start Date End Date Garcia Gonzales MD [address] [place] [address] PCP - General 09/03/09 documented as of this encounter
--- OUTSIDE RECORDS SUMMARY | 2024-01-20 01:06 | XMS_ITS | Encounter Summary ---
Author Organization [facility] Address [address] [place] [address] Care Team Providers Care Automotive Technician Name Role Phone Garcia Gonzales MD Primary Care Provider [phone] Encounter Details Date Type Department Care Team (Late st Contact Info) Description 01/18/2019 Results Only Imaging [facility] Neurosurgery - [address] [address] Caleb Ahumada MD [address] [place] [address], [address] [place] [phone] Social History Tobacco Use Types Packs/Day Years [...] Procedure Name Priority Date/Time Associated Diagnosis Comments PORT FLUORO UP TO 1 HOUR 01/18/2019 10:53 EDT CERVICAL SPINE 2-3 VIEWS 01/18/2019 10:51 EDT documented in this encounter Results * PORT FLUORO UP TO 1 HOUR (01/18/2019 10:53 EDT) Anatomical Region Laterality Modality Other 01/18/2019 10:5 3 EDT Narrative 01/18/2019 10:53 EDT Non Reportable Exam Procedure Note CERTIFIED MEDICAL TECHNICIAN ASSISTANT, IMAGING - 01/18/2019 Non Reportable Exam Caleb Ahumada MD IMG FLUOROSCOPY O RDERABLES * CERVICAL SPINE 2-3 VIEWS (01/18/2019 10:51 EDT) Anatomical Region Laterality Modality Other 01/18/2019 10:5 1 EDT Narrative 01/18/2019 10:51 EDT Non Reportable Exam Procedure Note CERTIFIED MEDICAL TECHNICIAN ASSISTANT, IMAGING - 01/18/2019 Non Reportable Exam Caleb Ahumada MD IMG DIAGNOSTIC IM AGING ORDERABLES documented in this encounter Visit Diagnoses Not on filedocumented in this encounter Care Teams Automotive Technician Relationship Specialty Start Date End Date Garcia Gonzales MD [address] [place] [address] PCP - General 09/03/09 documented as of this encounter
--- OUTSIDE RECORDS SUMMARY | 2024-01-20 01:06 | XMS_ITS | Encounter Summary ---
Author Organization [facility] Address [address] [place] [address] Care Team Providers Care Strap Stitcher Name Role Phone Garcia Gonzales MD Primary Care Provider [phone] Reason for Visit * Reason Onset Date Comments Discuss Surgery 04/18/2019 Encounter Details Date Type Department Care Team (Late st Contact Info) Description 04/18/2019 Telephone [facility] Neurosurgery - [address] [address] Caleb Ahumada MD [address] [place] [address], [address] [place] [address] Discuss Surgery Social History Tobacco [...] * Telephone Encounter - Susana Mackay - 04/18/2019 1540 EDT Patient called to speak to Jyoti and he was advised that she is currently on the phone. He was informed that we are looking at a tentative date of 05/12 for surgery and he stated that would work for him. He would prefer that Jyoti contact his PCP to schedule the pre-op. I informed him that I will pass along the information and have Jyoti give him a call. * Telephone Encounter - Awa Hurley - 04/18/2019 5805 EDT Patient left a message on our voicemail requesting a call back to schedule surgery. Left patient a message stating that we are looking at a tentative surgery date of 05/12/[address] Ahumada. Also states that we will reach out to patient's PCP to schedule a preop physical. Instructed patient to give our office a call with any questions. documented in this encounter Plan of Treatment Not on file documented as of this encounter Visit Diagnoses Not on filedocumented in this encounter Care Teams Strap Stitcher Relationship Specialty Start Date End Date Garcia Gonzales MD [address] [place] [address] PCP - General 09/03/09 documented as of this encounter
--- OUTSIDE RECORDS SUMMARY | 2024-01-20 01:06 | XMS_ITS | Encounter Summary ---
Author Organization [facility] Address [address] [place] [address] Care Team Providers Care Shingle Weaver Name Role Phone Garcia Gonzales MD Primary Care Provider [phone] Reason for Visit * Reason Onset Date Comments Appointment Related 11/23/2018 Encounter Details Date Type Department Care Team (Late st Contact Info) Description 11/23/2018 Telephone [facility] - [address] [address] Caleb Ahumada MD [address] [place] [address], [address] [place] [phone] Appointment Related Social History Tobacco Use Types [...] encounter Miscellaneous Notes * Telephone Encounter - Josephine Tijerina - 11/23/2018 1428 EDT Confirmed the following appointment details with Nakul: ?? 12/08 - [facility] Check in at 9:45am MRI at 10:00am ?? 12/13 - [facility] Appt at 11:00am with Dr. Rios Ahumada ?? Nakul verbalized understanding and denied having any questions. documented in this encounter Plan of Treatment Not on file documented as of this encounter Visit Diagnoses Not on filedocumented in this encounter Care Teams Shingle Weaver Relationship Specialty Start Date End Date Garcia Gonzales MD [address] [place] [address] PCP - General 09/03/09 documented as of this encounter
--- OUTSIDE RECORDS SUMMARY | 2024-01-20 01:06 | XMS_ITS | Encounter Summary ---
Author Organization [facility] Address [address] [place] [address] Care Team Providers Care Conference Planning Manager Name Role Phone Garcia Gonzales MD Primary Care Provider [phone] Encounter Details Date Type Department Care Team (Late st Contact Info) Description 12/09/2018 Results Only Imaging [facility] [phone] Unknown, Provider, Social History Tobacco Use Types [...] /Time OUTSIDE IMAGES - MR NEURO Imaging 12/09/2018 7:31 EDT documented as of this encounter Visit Diagnoses Not on filedocumented in this encounter Care Teams Conference Planning Manager Relationship Specialty Start Date End Date Garcia Gonzales MD [address] [place] [address] PCP - General 09/03/09 documented as of this encounter
--- OUTSIDE RECORDS SUMMARY | 2024-01-20 01:06 | XMS_ITS | Encounter Summary ---
Author Organization [facility] Address [address] [place] [address] Care Team Providers Care Parts Control Clerk Name Role Phone Garcia Gonzales MD Primary Care Provider [phone] Encounter Details Date Type Department Care Team (Late st Contact Info) Description 06/04/2011 Results Only [facility] ([facility]) [address], [place] [id number] Garcia Gonzales MD [address], [place] [id number] Social History Tobacco Use Types Packs/Day Years [...] Date/Time Associated Diagnosis Comments SURGICAL PATHOLOGY Routine 06/04/2011 0 :00 EST documented in this encounter Results * SURGICAL PATHOLOGY (06/04/2011 0:00 EST) Pathology Report: SURGICAL PATHOLOGY REPORT Reports generated via electronic interface contain original data; however they are lacking the format of the original report. Caution should be taken when reading/interpreti ng unformatted reports. Name: ? SINDY SAM ? Accession #: ? [id number] ? : ? 1945 (Age: 66) ??M ? Collect Date: ? 06/04/2011 ? Location: ? [facility] ? Receive Date: ? 06/05/2011 ? Provider: GARCIA GONZALES MD Copy to: ? Final Pathologic Diagnosis: ? Skin of shoulder, right, shave biopsy: 1. ?Melanocytic nevus, junctional lentiginous type, with unusual architectural features and mild-moderate cytologic atypia. ? - Nevus does not extend to edges of shave biopsy specimen in the plane of the sections ??examined. ?- Nevus present approximately 1.5 mm from closest peripheral tissue edge. ?? Microscopic Description: ? Sections consist of a shave biopsy of skin to the deep reticular dermis. The epidermis is mildly hyperplastic with long, clubbed, and thin rete ridges. There is a broad, poorly defined melanocytic proliferation within the epidermis. The proliferation is of low cellular density, but consists of nests and individual cells. ??The nests are small and located mainly at the tips of rete ridges. ??The individual melanocytes are disposed in a lentiginous fashion. ??They are unevenly spaced, but show no tendency toward confluent growth. ??A rare melanocyte is noted slightly above the basal zone, but there is no well developed upward migration. ??The melanocytes are slightly enlarged and show a mild degree of nuclear size and shape variation. ??Most have abundant melanin pigment. ??Deeper sections show similar features. ??(Dr. Hernandez)/dana Document reviewed and electronically signed by: FELIX HERNANDEZ MD Report ??Date: 06/09/2011 16:31 By the signature above, the attending physician certifies that he/she has personally conducted a gross and/or microscopic examination of the described specimens and rendered or confirmed the above diagnosis. Specimen(s) Received: ? R shoulder skin lesion Clinical History: ? New, variably pigmented 3.0 ??4.0 mm lesion R shoulder; R/O melanoma Gross Description: ? Received in formalin labelled Sindy Sam and R shoulder is a 0.7 x 0.4 x 0.1 cm shave biopsy of skin with a centrally located, 0.4 x 0.2 cm, reardon-brown macule. ??The specimen is bisected and entirely submitted in one cassette. (Dr. Lott)/[facility] End of Report KAVITA DUBON 06/04/2011 06/05/2011 16: 02 EST Gracia Gonzales MD PATHOLOGY ORDERABLES KAVITA DUBON [address] [place] [address] documented in this encounter Visit Diagnoses Not on filedocumented in this encounter Care Teams Parts Control Clerk Relationship Specialty Start Date End Date Garcia Gonzales MD [address] [place] [address] PCP - General 09/03/09 documented as of this encounter
--- OUTSIDE RECORDS SUMMARY | 2024-01-20 01:06 | XMS_ITS | Encounter Summary ---
Author Organization [facility] Address [address] [place] [address] Care Team Providers Care Teller Head Name Role Phone Garcia Gonzales MD Primary Care Provider [phone] Reason for Visit * Auth/Cert Specialty Diagnoses / Procedures [facility] Referred To Contact Diagnoses Spinal stenosis, lumbar region with neurogenic claudication Procedures LA ARTHRODESIS POSTERIOR/POSTEROLATERAL LUMBAR LA SPINE FUSN,POST TECH,EA ADDNL SGMT LA LAMINECTOMY,>2 SGMT,LUMBAR LA POSTERIOR SEGMENTAL INSTRUMENTATION 3-6 VRT SEG LA ALLOGRAFT FOR SPINE SURGERY ONLY STRUCTURAL lumbar laminectomy L1-2 through L4-5, L3-5 instrumented fusion with the use or possible use of allograft . . . . Referral ID Status Reason Start Date Expiration Date Visits Re quested Visits Authorized [id number] 1 1 Encounter Details Date Type Department Care Team (Late st Contact Info) Description 05/31/2019 7:25 EST - 05/31/2019 12:25 EST Surgery [facility] OR [address] [place] [address] [id number] Caleb Ahumada MD [address] [facility], [address] [place] [id number] lumbar laminectomy L1-2 through L4-5, L3-5 instrumented fusion with the use or possible use of allograft [[id number] (CPT??)] Surgery Details Date/Time Status Location OR Service Patient Class Case Class Case Type Trauma Case? 05/31/19 0725 Posted [facility] OR [facility] Neurosurgery Exte nded Stay H - Elective Panel 1 Procedure LRB Anes Op Region Wound Class Comments lumbar laminectomy L1-2 thro ugh L4-5, L3-5 instrumented fusion with the use or possible use of allograft N/A General Spine Lumbar Clas s I/ Clean . N/A General Spine Lumbar . N/A General Spine Lumbar . N/A General Spine Lumbar . N/A General Spine Lumbar Surgeon Surgeon Role Service Panel Caleb Ahumada MD Primary Neurosurgery 1 Good Small MD Resident - Assisting Neurosurge ry 1 Special Needs O-Arm, Stealth, 5 hours documented in this encounter Social History Tobacco Use Types Packs/Day Years Used Date Smoking Tobacco: Former Cigarettes 3 15 1 [id number] Smokeless Tobacco: Never Comments:quit 41 years ago [...] Sign Reading Time Taken Comments Blood Pressure 125/85 05/31/2019 0649 EST Pulse 82 05/31/2019 0649 EST Temperature 36.6 ??C (97.9 ??F) 05/31/2019 0649 EST Respiratory Rate 20 05/31/2019 0649 EST Oxygen Saturation 97% 05/31/2019 0649 EST Inhaled Oxygen Concentration - - Weight - - Height - - Body Mass Index - - documented in this encounter Functional Status Functional [...] ??C (98.7 ??F) 97 % None 06/02/19 203 126/76 17 37.2 ??C (98.9 ??F) 99 [...] Post Op Visit with Caleb Ahumada MD [facility] Neurosurgery - [facility] (--) [address] [facility] [address] ALICIA MARROQUIN MD 06/03/2019 8:02 documented in [...] Gomez, PT - 06/06/2019 1042 EST [facility] Rehabilitation Therapy Acute Therapy [facility] Physical Therapy Discontinue/Discharge Note Date of Service: 06/06/2019 Mobility Precautions Activity: Activity as tolerated Spinal Precautions: Spine A Surgery/No Brace SUBJECTIVE: Other Subjective Statements: N/A OBJECTIVE: PatientProfile: Patient is a 74 y.o. male admitted on 05/31/2019 secondary to Spinal stenosis, lumbar region with neurogenic claudication [M48.062] Spinal stenosis of lumbar region with neurogenic claudication [M48.062] The patient lives at [address] [place] [address] Interventions Completed Today: Interventions Included: No interventions [...] at subacuterehab Short-Term Goals: na Long-Term Goals: Snf Goal Time Frame: 2 days to 2 [...] Services Comments: in Subacute rehab facility Pager: [phone] ORA GOMEZ, PT 06/06/2019 12:25 * Dayami Frazier - 06/06/2019 1040 EST I met with the patient to review medicare IM and wish him well. He was sitting up brushing teeth and getting cleaned up. He feels ready to d/c to rehab today and is very pleased to get into the rehabof his choice. Pt discharging to [facility] via w/c van at [address] Kaila Toussaint will follow. report will be phoned to him @ [phone]. RN report will be phoned the facility rehab unit. Dayami Frazier RN/[facility] #[id number]. * Krystyna Terrazas OT - 06/06/2019 0819 EST [facility] Rehabilitation Therapy Acute Therapies [facility] - Occupational Therapy Discontinue/Discharge Note Date of [...] Lower Body Dressing: Pt able to doff/don oracle forms developer socks using dressing stick and sock aid [...] to returning home. Pt ultimately DC'ed to [facility]. GOALS: Discontinue all goals secondary to pt DC from hospital. Short Term Goals: N/A ?? Snf Goals: Snf Goal Time Frame Bridge Teacher Goal Time Frame: 1-2 weeks Bridge Teacher Goal 1 Goal: Will perform functional transfers to/from varying surfaces modified I to perform BADL or other functional activities. Snf Goal 2 Goal: Will perform LB dressing/self-care modified I. Bridge Teacher Goal 3 Goal: Will perform UB dressing/self-care modified I. Bridge Teacher Goal 4 Goal: Will perform toileting tasks min contact A. Snf Goal 5 Goal: Will recall and follow post surgery precautions without verbal reminders during OT sessions. Bridge Teacher Goal 6 Goal: Will verbalize understanding of any OT recommendations. PLAN: Discontinue occupational therapy at [facility] acute care. Recommended Discharge Destination: Sub-acute rehabilitation Recommended Discharge Services: Occupational therapy at rehabilitation facility Recommended Discharge Equipment: Shower chair (if pt cannot find one he has), Infection Control Preventionist (if pt cannot find one he has), Toilet aid (Toilet tongs provided by OT), Grab bars next to toilet Further equipment recommendations to be made by next care provider Pager: [phone] GERRI LAINEZ, 06/06/2019, 8:20 Krystyna Terrazas OTR/L, Pager: [phone] * Murray Gomes MD - 06/06/2019 0754 EST Neurosurgery Daily Progress Note Problems/ Low [...] Extraocular movements intact Face symmetric No drift Undergraduate Intern 5/5 bl Elbow extension and flexion 5/5 [...] Gomes MD Neurosurgery resident 06/06/2019 7:54 Page [phone] with questions * Aliyah Tiradolis - 06/05/2019 1652 EST Spiritual Care Note Re: Nakul Ana Maria Sam : 1945, AGE: 74 y.o. Room: [facility]/[id number] Nakul Sam who is listed as None [...] . Pt is in good spirit . Line Assembly Utility Worker provided listening presence.support Plan of Action: No Follow up necessary - Needs met Continued Family Support Continued Support from Line Assembly Utility Worker following patient Make a Referral to: Continued [...] at time of Family Support Other Chaplain CRUZ Olver[address] Phone [phone] Spiritual Care is available 24 hours a day. Chaplains are available 24 hours a day. For routine consults please call and leave a message with the Spiritual Care Office ([phone]) and patients will be seen within 24 hours. For all emergent consults page the Mormon or Interfaith on-call Line Assembly Utility Worker through PAS ([phone]). * Dayami Frazier - 06/05/2019 1523 EST Bed offer received from [facility] in [place], pt.'s first choice for [facility]. Facility notes that patient's last charted BM was 06/03. They ask that pt be medicated if necessaryto produce bm prior to his discharge tomorrow. Dr. Kaila Toussaint will follow. MD report should be phoned to him at [phone]. RN report to be phoned to the facility @ [phone]. NS team informed, COLST and PASRR in patient's chart and will be signed by team. Pt to go via W/C van. He will be picked up in the main lobby at 11am Wednesday 06/06. Dayami Frazier RN/[facility] #[id number]. * Dayami Frazier - 06/05/2019 1355 EST I met with the patient and his was at his bedside. Pt states that he wants the one at the [facility]. Neither could remember the name of the [facility]. Pt agreeable to be listed at all three [facility] in [facility] And will decide based on bed offers. I have listed. I will follow up with patient when bed offers are received. Plan for d/c to [facility] as soon as tomorrow. Dayami Frazier RN/[facility] #[id number]. * Ora Gomez, PT - 06/05/2019 1240 EST [facility] Rehabilitation Therapy Acute Therapies [facility] Physical Therapy Encounter Note Date of Service: [...] other consults recommended at this time Pager: [phone] ORA GOMEZ, PT 06/05/2019 12:40 * Dayami Frazier - 06/05/2019 1200 EST Per PT today, patient in need of [facility]. He and are agreeable. I will see and list. Dayami Frazier RN/[facility] #[id number]. * Krystyna Terrazas, OT - 06/05/2019 1112 EST [facility] Rehabilitation Therapy Acute Therapies [facility] - Occupational Therapy Encounter Note Date of [...] managing prior to hospitalization. Discussed recommendation for / assist/supervision upon initial DC if pt is [...] Discharge Destination: Home with 24/7 assist and HH services vs. sub-acute rehabilitation if level of assist needed cannotbe provided- Confirmation needed from re: level of assist she can provide Recommended Discharge Services: See assessment above Recommended Discharge Equipment: Shower chair (if pt cannot find one he has), Infection Control Preventionist (if pt cannot find one he has), Toilet aid (Toilet tongs provided by OT), Grab bars next to toilet Pager: [phone] GERRI LAINEZ, 06/05/2019, 11:12 Krystyna Terrazas OTR/L, Pager: [phone] * Martín Gayle MD - 06/05/2019 3517 EST Neurosurgery Daily Progress Note Problems/ Low [...] Extraocular movements intact Face symmetric No drift Undergraduate Intern 5/5 bl Elbow extension and flexion 5/5 [...] Gayle MD Neurosurgery resident 06/05/2019 5:30 Page [phone] with questions * Ora Gomez, PT - 06/04/2019 1320 EST [facility] Rehabilitation Therapy Acute Therapies [facility] Physical Therapy Encounter Note Date of Service: [...] other consults recommended at this time Pager: [phone] ORA GOMEZ PT 06/04/2019 13:20 * Ora Gomez, PT - 06/04/2019 1023 EST [facility] Rehabilitation Therapy Acute Therapy [facility] Physical Therapy Contact Note Date of Service: [...] subacute rehab. Full note to follow Pager [phone] ORA GOMEZ, PT 06/04/2019 10:23 * Luz Pierre, OT - 06/04/2019 0942 EST [facility] Rehabilitation Therapy [facility] Therapy [facility] Occupational Therapy Initial Evaluation Note Date of [...] neurogenic claudication [M48.062]. The patient lives at [address] [place] [address] History of Present Illness/Injury Per Progress Note [...] and tisseal SURGEON = Rios Ahumada MD BLISTER PACKING MACHINE TENDER = Good Small MD ANESTHESIA = GETA [...] reported having a commode, shower chair and entry level recruiter but was unsure where they were. ) Dressing/Grooming/Feeding Equipment: Dressing stick, Infection Control Preventionist, Sock aid Mobility Equipment Mobility Equipment: Cane, [...] homes however he will be [facility] upon initial DC. Prior Level of Function Prior Level of Function Comment: Pt reported modified indpendence with BADLs. Pt used adapative equipment (sock aid, dressing stick, etc) to dress himself. Pt uses a rolling walker to mobilize as of recently. 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 Pt reported [...] Past Medical History: Diagnosis Date ??? A-fib ([facility]) dx in 2014, controlled well ??? 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 LA ALLOGRAFT FOR SPINE SURGERY ONLY STRUCTURAL N/A 05/31/2019 . performed by Caleb Ahumada MD at [facility] OR ??? LA ARTHRODESIS POSTERIOR/POSTEROLATERAL LUMBAR N/A 05/31/2019 lumbar laminectomy L1-2 through L4-5, L3-5 instrumented fusion with the use or possible use of allograft performed by Caleb Ahumada MD at [facility] OR ? ? LA LAMINECTOMY,>2 SGMT,LUMBAR N/A 05/31/2019 . performed by Caleb Ahumada MD at [facility] OR ??? LA POSTERIOR SEGMENTAL INSTRUMENTATION 3-6 VRT SEG N/A 05/31/2019 . performed by Caleb Ahumada MD at [facility] OR ??? LA SPINE FUSN,POST TECH,EA ADDNL SGMT N/A 05/31/2019 . performed by Caleb Ahumada MD at [facility] OR Medications: Current Medications: Current medications [...] Lower Body Dressing: Pt able to doff/don oracle forms developer socks using dressing stick and sock aid [...] to therapy session, During therapy session By: [id number] communication Notification Comments: Re: pt status Assessments: Need for Services Appropriateness for Occupational Therapy: The patient was appropriate for an occupational therapy evaluation today Mr. Sam was found to be appropriate for skilled acute OT services after presenting to [facility] s/pL1-L5 posterior decompression, L3-L5 instrumented fusion, [...] safely with his 's 18/01 supervision/assit and services including OT. Ifhe does not progress [...] Factors: Unsafe Goals: Short Term Goals: N/A Bridge Teacher Goals: Snf Goal Time Frame Bridge Teacher Goal Time Frame: 1-2 weeks Snf Goal 1 Goal: Will perform functional transfers to/from varying surfaces modified I to perform BADL or other functional activities. Snf Goal 2 Goal: Will perform LB dressing/self-care modified I. Bridge Teacher Goal 3 Goal: Will perform UB dressing/self-care modified I. Bridge Teacher Goal 4 Goal: Will perform toileting tasks min contact A. Snf Goal 5 Goal: Will recall and follow post surgery precautions without verbal reminders during OT sessions. Snf Goal 6 Goal: Will verbalize understanding of any OT recommendations. Plan: Necessity: Occupational therapy will be provided by the occupational therapist and/or timber management assistant when medically appropriate Active Engagement: Activity [...] Grab bars next to toilet Dressing/Grooming/Feeding Equipment: Infection Control Preventionist VADIM TORO, 06/04/2019, 10:35 LUZ PIERRE OT06/04/201914:09 Pager: [phone] * Martín Gayle MD - 06/04/2019 0434 [...] Extraocular movements intact Face symmetric No drift Undergraduate Intern 5/5 bl Elbow extension and flexion 5/5 [...] Gayle MD Neurosurgery resident 06/04/2019 4:34 Page [phone] with questions * Martín Gayle MD - [...] Extraocular movements intact Face symmetric No drift Undergraduate Intern 5/5 bl Elbow extension and flexion 5/5 [...] Gayle MD Neurosurgery resident 06/03/2019 5:01 Page 0468 with questions * Ora Gomez, PT - 06/02/2019 0903 EST [facility] Rehabilitation Therapy Acute Therapy [facility] Physical Therapy Contact Note Date of Service: 06/02/2019 PT attempted to see Mr. Sam at 0900. He is currently in the bathroom. Per discussion with Nursing, he required one assist for bed mobility and ambulation to with RW PT will follow up later today Pager [phone] ORA GOMEZ PT 06/02/2019 9:03 * Ora oGmez PT - 06/02/2019 0835 EST [facility] Rehabilitation Therapy Acute Therapy [facility] Initial Evaluation Note Date of [...] neurogenic claudication [M48.062] The patient lives at [address] [place] [address] History of Present Illness / Injury Current [...] plans to stay at her house in [place] during his recovery General Prior Level of [...] Past Medical History: Diagnosis Date ??? 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 LA ALLOGRAFT FOR SPINE SURGERY ONLY STRUCTURAL N/A 05/31/2019 . performed by Caleb Ahumada MD at [facility] OR ??? LA ARTHRODESIS POSTERIOR/POSTEROLATERAL LUMBAR N/A 05/31/2019 lumbar laminectomy L1-2 through L4-5, L3-5 instrumented fusion with the use or possible use of allograft performed by Caleb Ahumada MD at [facility] OR ? ? LA LAMINECTOMY,>2 SGMT,LUMBAR N/A 05/31/2019 . performed by Caleb Ahumada MD at [facility] OR ??? LA POSTERIOR SEGMENTAL INSTRUMENTATION 3-6 VRT SEG N/A 05/31/2019 . performed by Caleb Ahumada MD at [facility] OR ??? LA SPINE FUSN,POST TECH,EA ADDNL SGMT N/A 05/31/2019 . performed by Caleb Ahumada MD at [facility] OR Medications Current Medications: Current medications [...] During therapy session, After therapy session By: [id number] communication About Mobility and Gait: Mobility status, [...] services pending progress Short-Term Goals:na Long-Term Goals: Bridge Teacher Goal Time Frame: 2 days to 2 [...] by the physical therapist and/or physical therapist cataloging assistant when medically appropriate Pt will benefit [...] Recommended Comments: pt has necessary equipment Pager: [phone] ORA GOMEZ PT 06/02/2019 13:59 * Martín [...] symmetric Facial sensation grossly intact No drift Undergraduate Intern 5/5 bl Elbow extension and flexion 5/5 [...] Gayle MD Neurosurgery resident 06/02/2019 5:10 Page 7574 with questions * Cristy Mckay RN - 06/01/2019 9736 EST Pt POD1 s/p L1-5 posterior decomp, L3-5 instrumented fusion, and dural tear repair, dry drsg c/d/i.Pt only tolerating raising HOB to 55 degrees so far, willing to try higher tomorrow. Pt rates lowerback pain at 7/10 consistently. Pt has class III tele orders for a-fib monitoring, required IV metoprolol previous night. #[id number] paged about need to renew or d/c tele and about new concern of L. Hand swelling after pulling out leaky IV. MD Resendiz d/c'd tele orders--notify [id number] if HR sustains in 120s-130s. assessed pt's L. Hand and wasnot concerned of DVT, no need for ultrasound/imaging. Pt now sleeping comfortably in bed, saline locked, hwang still in (per pt request) until able to sit higher to use urinal, call anand in reach, will continue to monitor. * Capo Camargo RN - 06/01/2019 1444 EST Initial Case Management/Social Work Assessment and [...] the patient? Spouse / significant other Is 24/7 care available? Yes ADVANCED DIRECTIVES, POA &/or COLST IN PLACE: Healthcare Directive: Yes, patient has advance directive for healthcare treatment Type of Healthcare Directive: Health care treatment directive, Durable power of manager research development for healthcare Copy in Chart: Yes, previous copy on file @ [facility] DIRECTIVES FOR FINANCES: Directive For Finances: No TRANSPORTATION: Transportation: Family, Self CULTURAL, TEMPLE and/or LANGUAGE factors affecting health care/discharge planning: [...] point device Community Services: Home health, MOW, SASH-none of one time a week Will you [...] Health Services: None DME Provider: [id number] - [place], [place] - [address] [facility] [address] [place] [address] Home Health: Other: POST HOSPITAL TRANSITION PLAN: Patient will plan to discharge to his second house where his spouse lives. She will be his transportation and main source of support while recovering. Spouse lives at [address] [facility] [address] and patient will be going to this address after surgery and receiving home health services through [facility]. Patient has necessary DME, new front [...] symmetric Facial sensation grossly intact No drift Undergraduate Intern 5/5 bl Elbow extension and flexion 5/5 [...] Gomes MD Neurosurgery resident 06/01/2019 9:49 Page 8156 with questions * Ankita Tran RN - [...] symmetric Facial sensation grossly intact No drift Undergraduate Intern 5/5 bl Elbow extension and flexion 5/5 [...] MARROQUIN MD Neurosurgery resident 05/31/2019 8:38 Page 3032 with questions documented in this encounter H&P [...] Martinez MD 05/31/2019 7:00 Source Note - MIXER WET POUR, SCAN 2 - 05/24/2019 16:30 EST documented in this encounter OR Notes * OR Surgeon - Caleb Ahumada MD - 05/31/2019 0000 EST OPERATIVE REPORT SERVICE DATE: 05/31/2019 SURGEON: Robi Ahumada MD BLISTER PACKING MACHINE TENDER: Good Small MD PROCEDURES: 1. Spinal image [...] processes. Intraoperative x-ray confirmed correct level. A Stealth reference array was placedon the L5 spinous process and a high resolution cone beam CT obtained with the O-arm. I then broke scrub and prep performed surgical planning on the [email or web address] workstation. I then scrubbed and reenteredthe field and tested points, confirming a satisfactory registration. Starting on the right side at L3, a banquet pilot hole was drilled and a pedicle [...] Ahumada MD 02 58 PM / S Rios Ahumada MD cn Confirmation: [id number] Dictation ID: [id number] * Preprocedure Instructions - Tamy Corrales RN - 05/29/2019 1516 EST Nakul Sam has been instructed as follows regarding [...] Goal This Shift: Pt to discharge to [facility] today Note: Nursing Discharge Note D: Patient noted with discharge orders to: [facility]. A: Belongings collected and sent home with patient. Report called to Krystal at [facility] on the Rehab unit. R: Pt left [...] x 2 small BM as of now. MD notified and aware. Response: Pt now feeling [...] - Daniele Del Castillo RN - 06/01/2019 1088 EST Problem: Daily Care Plan Goals Goal: [...] 06/01/2019 3:21 * Plan of Care - Nichol Nolasco RN - 05/31/2019 1852 EST Data: [...] and tisseal SURGEON = Rios Ahumada MD BLISTER PACKING MACHINE TENDER = Good Small MD ANESTHESIA = GETA COMPLICATIONS = Durotomy FINDINGS = Bony and ligamentous stenosis EBL = 450 IVF = See anesthesia record UOP = See anesthesia record SPECIMENS/CULTURES = None DRAINS = None SKIN = Nylon DISPO = PACU then Floor HOB flat, Bedrest until tomorrow AM, Logroll okay Good Small MD Neurosurgery resident 05/31/2019 15:19 Page 3929 with questions documented in this encounter Plan [...] 9:05 EST) 06/09/2019 9:05 EST Scan 2 Associate Software Development Engineer PROCEDURE/MINOR JACKY GICAL ORDERABLES * (ABNORMAL) COMPLETE BLOOD COUNT AND DIFFERENTIAL (06/06/2019 6:41 EST) WBC 6.40 4.00 - 10.40 K/cmm 06/06/2019 7:01 [facility] RBC 2.72(L) 4.36 - 5.78 M/cmm 06/06/2019 7:01 [facility] Hemoglobin 8.3(L) 13.8 - 17.3 gm/dL 06/06/2019 7:01 [facility] HCT 24.1(L) 39.5 - 50.2 % 06/06/2019 7:01 [facility] MCV 89 81 - 95 fl 06/06/2019 7:01 [facility] MCH 30.5 27.6 - 33.0 pg 06/06/2019 7:01 [facility] MCHC 34.4 32.8 - 36.4 gm/dL 06/06/2019 7:01 [facility] RDW-CV 13.9 <14.2 % 06/06/2019 7:01 [facility] RDW-SD 44.9 <46.0 fl 06/06/2019 7:01 [facility] PLT 269 141 - 377 K/cmm 06/06/2019 7:01 [facility] MPV 9.6 9.5 - 12.7 fl 06/06/2019 7:01 [facility] % Neutrophils 64.5 % 06/06/2019 7:01 [facility] % Lymphocytes 19.8 % 06/06/2019 7:01 [facility] % Monocytes 13.3 % 06/06/2019 7:01 [facility] % Eosinophils 1.3 % 06/06/2019 7:01 [facility] % Basophils 0.2 % 06/06/2019 7:01 [facility] % Immature Grans 0.9 % 06/06/20 19 7:01 [facility] Absolute Neutrophils 4.13 2.20 - 8.85 K/cmm 06/06/2019 7:01 [facility] Absolute Lymphocytes 1.27 1.09 - 3.30 K/cmm 06/06/2019 7:01 [facility] Absolute Monocytes 0.85(H) 0.10 - 0.80 K/cmm 06/06/2019 7:01 [facility] LABORATORY SERVICES Absolute Eosinophils 0.08 0.03 - 0.61 K/cmm 06/06/2019 7:01 [facility] ABS Basophils 0.01 0.01 - 0.11 K/cmm 06/06/2019 7:01 [facility] Absolute Immature Grans 0.06 0.00 - 0.06 K/cmm 06/06/2019 7:01 [facility] Type of Differential: Auto 06/06/2019 7:01 [facility] Blood VENOUS BLOOD / Unknown Venipuncture / Unknown 06/06/2019 6:41 EST 06/06/2019 6:54 EST Murray Gomes MD PACKAGES & DNA PROBE ORDERABLES [facility]ORATORY SERVICES [address] [place] [address] * (ABNORMAL) ELECTROLYTES (06/06/2019 6:41 EST) Sodium 134(L) 136 - 145 mEq/L 06/06/2019 7:19 [facility] Potassium 3.6 3.5 - 5.0 mEq/L 06/06/2019 7:19 [facility] Chloride 99 96 - 110 mEq/L 06/06/2019 7:19 [facility] CO2 Total 28 22 - 32 mEq/L 06/06/2019 7:19 [facility] Blood VENOUS BLOOD / Unknown Venipuncture / Unknown 06/06/2019 6:41 EST 06/06/2019 6:54 EST Murray Gomes MD CHEMISTRY & BLO OD GAS ORDERABLES [facility] [address] [place] [address] * ECG REPORT - SCANNED (06/05/2019 14:40 EST) 06/05/2019 14:4 0 EST Scan 2 Associate Software Development Engineer PROCEDURE/MINOR JACKY GICAL ORDERABLES * (ABNORMAL) COMPLETE BLOOD COUNT AND DIFFERENTIAL (06/03/2019 5:29 EST) WBC 10.99(H) 4.00 - 10.40 K/cmm 06/03/2019 6:24 [facility] RBC 2.98(L) 4.36 - 5.78 M/cmm 06/03/2019 6:24 [facility] Hemoglobin 8.8(L) 13.8 - 17.3 gm/dL 06/03/2019 6:24 [facility] HCT 26.2(L) 39.5 - 50.2 % 06/03/2019 6:24 [facility] MCV 88 81 - 95 fl 06/03/2019 6:24 [facility] MCH 29.5 27.6 - 33.0 pg 06/03/2019 6:24 [facility] MCHC 33.6 32.8 - 36.4 gm/dL 06/03/2019 6:24 [facility] RDW-CV 13.5 <14.2 % 06/03/2019 6:24 [facility] RDW-SD 43.8 <46.0 fl 06/03/2019 6:24 [facility] PLT 149 141 - 377 K/cmm 06/03/2019 6:24 [facility] MPV 10.9 9.5 - 12.7 fl 06/03/2019 6:24 [facility] % Neutrophils 78.6 % 06/03/2019 6:24 [facility] % Lymphocytes 12.5 % 06/03/2019 6:24 [facility] % Monocytes 7.8 % 06/03/2019 6:24 [facility] % Eosinophils 0.4 % 06/03/2019 6:24 [facility] % Basophils 0.1 % 06/03/2019 6:24 [facility] % Immature Grans 0.6 % 06/03/20 19 6:24 [facility] Absolute Neutrophils 8.64 2.20 - 8.85 K/cmm 06/03/2019 6:24 [facility] Absolute Lymphocytes 1.37 1.09 - 3.30 K/cmm 06/03/2019 6:24 [facility] Absolute Monocytes 0.86(H) 0.10 - 0.80 K/cmm 06/03/2019 6:24 [facility] Absolute Eosinophils 0.04 0.03 - 0.61 K/cmm 06/03/2019 6:24 [facility] ABS Basophils 0.01 0.01 - 0.11 K/cmm 06/03/2019 6:24 [facility] Absolute Immature Grans 0.07(H) 0.00 - 0.06 K/cmm 06/03/2019 6:24 [facility] Type of Differential: Auto 06/03/2019 6:24 [facility] Blood VENOUS BLOOD / Unknown Venipuncture / Unknown 06/03/2019 5:29 EST 06/03/2019 6:11 EST Good Small MD PACKAGES & DNA PROB E ORDERABLES [facility] [address] [place] [address] * (ABNORMAL) CREATININE (06/03/2019 5:29 EST) Creatinine 0.64(L) 0.66 - 1.25 mg/dL 06/03/2019 6:49 [facility] eGFR 95 >60 mL/min/1.7 3m2 06/03/2019 6:49 [facility] Comment:eGFR calculated tio plascencia CKD-EPI equation for non- Americans. Multiply eGFR by 1.16 for patients. Blood VENOUS BLOOD / Unknown Venipuncture / Unknown 06/03/2019 5:29 EST 06/03/2019 6:19 EST Good Small MD CHEMISTRY & BLOOD G ORDERABLES Performing Organization Address [facility] de Phone Number [facility] [address] [place] [address] * BUN (06/03/2019 5:29 EST) BUN 15 10 - 26 mg/dL 06/03/2019 6:49 [facility] Blood VENOUS BLOOD / Unknown Venipuncture / Unknown 06/03/2019 5:29 EST 06/03/2019 6:19 EST Good Small MD CHEMISTRY & BLOOD G ORDERABLES Performing Organization Address [facility] Phone Number [facility] [address] [place] [address] * (ABNORMAL) ELECTROLYTES (06/03/2019 5:29 EST) Sodium 128(L) 136 - 145 mEq/L 06/03/2019 6:49 [facility] Potassium 3.6 3.5 - 5.0 mEq/L 06/03/2019 6:49 [facility] Chloride 95(L) 96 - 110 mEq/L 06/03/2019 6:49 [facility] CO2 Total 30 22 - 32 mEq/L 06/03/2019 6:49 [facility] Blood VENOUS BLOOD / Unknown Venipuncture / Unknown 06/03/2019 5:29 EST 06/03/2019 6:19 EST Good Small MD CHEMISTRY & BLOOD G ORDERABLES Performing Organization Address [facility] de Phone Number [facility] [address] [place] [address] * XR LUMBAR SPINE 2-3 VIEWS (06/02/2019 [...] andagree with the findings. Alicia Marroquin MD [facility] DIAGNOSTIC IMAGI NG ORDERABLES * (ABNORMAL) COMPLETE BLOOD COUNT AND DIFFERENTIAL (06/02/2019 5:35 EST) WBC 13.38(H) 4.00 - 10.40 K/cmm 06/02/2019 6:35 EST [facility] RBC 3.22(L) 4.36 - 5.78 M/cmm 06/02/2019 6:35 [facility] Hemoglobin 9.7(L) 13.8 - 17.3 gm/dL 06/02/2019 6:35 [facility] HCT 28.7(L) 39.5 - 50.2 % 06/02/2019 6:35 [facility] MCV 89 81 - 95 fl 06/02/2019 6:35 [facility] MCH 30.1 27.6 - 33.0 pg 06/02/2019 6:35 [facility] MCHC 33.8 32.8 - 36.4 gm/dL 06/02/2019 6:35 [facility] RDW-CV 13.9 <14.2 % 06/02/2019 6:35 [facility] RDW-SD 45.2 <46.0 fl 06/02/2019 6:35 [facility] PLT 143 141 - 377 K/cmm 06/02/2019 6:35 [facility] MPV 11.2 9.5 - 12.7 fl 06/02/2019 6:35 [facility] % Neutrophils 80.3 % 06/02/2019 6:35 [facility] % Lymphocytes 10.3 % 06/02/2019 6:35 [facility] % Monocytes 8.7 % 06/02/2019 6:35 [facility] % Eosinophils 0.1 % 06/02/2019 6:35 [facility] % Basophils 0.1 % 06/02/2019 6:35 [facility] % Immature Grans 0.5 % 06/02/20 19 6:35 [facility] Absolute Neutrophils 10.73(H) 2.20 - 8.85 K/cmm 06/02/2019 6:35 [facility] Absolute Lymphocytes 1.38 1.09 - 3.30 K/cmm 06/02/2019 6:35 [facility] Absolute Monocytes 1.17(H) 0.10 - 0.80 K/cmm 06/02/2019 6:35 [facility] Absolute Eosinophils 0.01(L) 0.03 - 0.61 K/cmm 06/02/2019 6:35 [facility] ABS Basophils 0.02 0.01 - 0.11 K/cmm 06/02/2019 6:35 [facility] Absolute Immature Grans 0.07(H) 0.00 - 0.06 K/cmm 06/02/2019 6:35 [facility] Type of Differential: Auto 06/02/2019 6:35 [facility] Blood VENOUS BLOOD / Unknown Venipuncture / Unknown 06/02/2019 5:35 EST 06/02/2019 6:21 EST Good Small MD PACKAGES & DNA PROB E ORDERABLES Performing Organization Address [facility] de Phone Number [facility] [address] [place] [address] * CREATININE (06/02/2019 5:35 EST) Creatinine 0.84 0.66 - 1.25 mg/dL 06/02/2019 6:55 [facility] eGFR 85 >60 mL/min/1.7 3m2 06/02/2019 6:55 [facility] Comment:eGFR calculated tio plascencia CKD-EPI equation for non- Americans. Multiply eGFR by 1.16 for patients. Blood VENOUS BLOOD / Unknown Venipuncture / Unknown 06/02/2019 5:35 EST 06/02/2019 6:21 EST Good Small MD CHEMISTRY & BLOOD G ORDERABLES Performing Organization Address [facility] Co de Phone Number [facility] [address] [place] [address] * BUN (06/02/2019 5:35 EST) BUN 16 10 - 26 mg/dL 06/02/2019 6:55 [facility] Blood VENOUS BLOOD / Unknown Venipuncture / Unknown 06/02/2019 5:35 EST 06/02/2019 6:21 EST Good Small MD CHEMISTRY & BLOOD G ORDERABLES Performing Organization Address [facility] Co de Phone Number [facility] [address] [place] [address] * (ABNORMAL) ELECTROLYTES (06/02/2019 5:35 EST) Pathologist [facility] Sodium 129(L) 136 - 145 mEq/L 06/02/2019 6:55 [facility] Potassium 4.0 3.5 - 5.0 mEq/L 06/02/2019 6:55 [facility] Chloride 96 96 - 110 mEq/L 06/02/2019 6:55 [facility] CO2 Total 28 22 - 32 mEq/L 06/02/2019 6:55 [facility] Blood VENOUS BLOOD / Unknown Venipuncture / Unknown 06/02/2019 5:35 EST 06/02/2019 6:21 EST Good Small MD CHEMISTRY & BLOOD G ORDERABLES Performing Organization Address [facility] de Phone Number [facility] [address] [place] [address] * (ABNORMAL) COMPLETE BLOOD COUNT AND DIFFERENTIAL (06/01/2019 5:24 EST) Pathologist [facility] WBC 10.88(H) 4.00 - 10.40 K/cmm 06/01/2019 6:02 [facility] RBC 3.43(L) 4.36 - 5.78 M/cmm 06/01/2019 6:02 [facility] Hemoglobin 10.3(L) 13.8 - 17.3 gm/dL 06/01/2019 6:02 [facility] HCT 30.5(L) 39.5 - 50.2 % 06/01/2019 6:02 [facility] MCV 89 81 - 95 fl 06/01/2019 6:02 [facility] MCH 30.0 27.6 - 33.0 pg 06/01/2019 6:02 [facility] MCHC 33.8 32.8 - 36.4 gm/dL 06/01/2019 6:02 [facility] RDW-CV 14.3(H) <14.2 % 06/01/2019 6:02 [facility] RDW-SD 46.1(H) <46.0 fl 06/01/2019 6:02 [facility] PLT 134(L) 141 - 377 K/cmm 06/01/2019 6:02 [facility] MPV 11.4 9.5 - 12.7 fl 06/01/2019 6:02 [facility] % Neutrophils 75.8 % 06/01/2019 6:02 [facility] % Lymphocytes 12.2 % 06/01/2019 6:02 [facility] % Monocytes 11.5 % 06/01/2019 6:02 [facility] % Eosinophils 0.0 % 06/01/2019 6:02 [facility] % Basophils 0.1 % 06/01/2019 6:02 [facility] % Immature Grans 0.4 % 06/01/20 19 6:02 [facility] Absolute Neutrophils 8.25 2.20 - 8.85 K/cmm 06/01/2019 6:02 [facility] Absolute Lymphocytes 1.33 1.09 - 3.30 K/cmm 06/01/2019 6:02 [facility] Absolute Monocytes 1.25(H) 0.10 - 0.80 K/cmm 06/01/2019 6:02 [facility] Absolute Eosinophils 0.00(L) 0.03 - 0.61 K/cmm 06/01/2019 6:02 [facility] ABS Basophils 0.01 0.01 - 0.11 K/cmm 06/01/2019 6:02 [facility] Absolute Immature Grans 0.04 0.00 - 0.06 K/cmm 06/01/2019 6:02 [facility] Type of Differential: Auto 06/01/2019 6:02 [facility] Blood VENOUS BLOOD / Unknown Venipuncture / Unknown 06/01/2019 5:24 EST 06/01/2019 5:51 EST Good Small MD PACKAGES & DNA PROB E ORDERABLES Performing Organization Address [facility] de Phone Number [facility] [address] [place] [address] * CREATININE (06/01/2019 5:24 EST) Creatinine 0.79 0.66 - 1.25 mg/dL 06/01/2019 6:18 [facility] eGFR 87 >60 mL/min/1.7 3m2 06/01/2019 6:18 [facility] Comment:eGFR calculated tio plascencia CKD-EPI equation for non- Americans. Multiply eGFR by 1.16 for patients. Blood VENOUS BLOOD / Unknown Venipuncture / Unknown 06/01/2019 5:24 EST 06/01/2019 5:51 EST Good Small MD CHEMISTRY & BLOOD G ORDERABLES Performing Organization Address [facility] de Phone Number [facility] [address] [place] [address] * BUN (06/01/2019 5:24 EST) BUN 15 10 - 26 mg/dL 06/01/2019 6:18 [facility] Blood VENOUS BLOOD / Unknown Venipuncture / Unknown 06/01/2019 5:24 EST 06/01/2019 5:51 EST Good Small MD CHEMISTRY & BLOOD G ORDERABLES Performing Organization Address [facility] de Phone Number [facility] [address] [place] [address] * (ABNORMAL) ELECTROLYTES (06/01/2019 5:24 EST) Sodium 134(L) 136 - 145 mEq/L 06/01/2019 6:18 [facility] Potassium 4.1 3.5 - 5.0 mEq/L 06/01/2019 6:18 [facility] Chloride 102 96 - 110 mEq/L 06/01/2019 6:18 [facility] CO2 Total 27 22 - 32 mEq/L 06/01/2019 6:18 EST [facility] Blood VENOUS BLOOD / Unknown Venipuncture / Unknown 06/01/2019 5:24 EST 06/01/2019 5:51 EST Good Small MD CHEMISTRY & BLOOD G ORDERABLES [facility] [address] [place] [address] * XR LUMBAR SPINE 1 VIEW (05/31/2019 [...] andagree with the findings. Caleb Ahumada MD [facility] DIAGNOSTIC IM AGING ORDERABLES * XR LUMBAR [...] the L2 spinous process, directed towards the [id number] and L3 vertebral body. IMPRESSION Intraoperative localization Dr. Wang reviewed these findings with Dr. Ahumada on 05/31/2019 at 8:18AM. I have personally reviewed the images and the above interpretation andagree with the findings. Caleb Ahumada MD [facility] DIAGNOSTIC AGING ORDERABLES * TYPE AND SCREEN (05/31/2019 6:35 EST) ABO A 05/31/2019 8:35 EST [facility] Rh Factor Positive 05/31/2019 8:35 EST [facility] Antibody Screen Negative 05/31/2019 8:35 EST [facility] Specimen Expires: 06/03/2019 @ 23:59 05/31/2019 8:35 EST [facility] Blood VENOUS BLOOD / Unknown Venipuncture / Unknown 05/31/2019 6:35 EST 05/31/2019 6:35 EST Chencho Tarango MD BLOOD BANK TESTS Performing Organization Address City/State/[facility] Co ct Phone Number [facility] [address] [place] [address] documented in this encounter Visit Diagnoses Diagnosis Neurogenic claudication Spinal stenosis, lumbar region, with neurogenic claudication Hyponatremia Hyposmolality and/or hyponatremia Spinal stenosis, lumbar region with neurogenic claudication documented in this encounter Admitting Diagnoses Diagnosis Spinal stenosis, lumbar region with neurogenic claudication documented in this encounter Administered Medications Inactive Administered Medications - up to 3 most recent administrations Medication Order MAR Action Action Date Dose Rate Site acetaminophen (TYLENOL) solution unit dose cup 650 [...] on Wed06/01/19 at 2100, Until Discontinued, Routine Given 06/06/2019 0:22 EST 10 mg Given 06/04/2019 20:18 EST 10 mg Given 06/03/2019 20:27 EST 10 mg bacitracin injection As needed, Starting on Wed05/31/19 at 0909, Until Wed05/31/19 at 1523, Routine, Intraprocedure Given 05/31/2019 9:09 EST 50,000 Units benzocaine-menthol (CEPACOL) 15-3.6 mg per lozenge 1 [...] mg Given 06/03/2019 9:57 EST 10 mg bupivacaine-EPINEPHrine (PF) 0.5 %-1:200,000 injection As needed, Starting on Wed05/31/19 at 0836, Until Wed05/31/19 at 1523, Routine, Intraprocedure Given 05/31/2019 8:36 EST 10 mL Back calcium carbonate (TUMS) 200 mg calcium (500 mg) per chewable tablet tablet,chewable 1 Tab 1 Tablet, oral, EVERY 4 HOURS PRN, Starting on Wed05/31/19 at 1523, Until Wed06/06/19 at 1242, Heartburn, Routine, Release Given 05/31/2019 18:18 EST 1 Tablet docusate sodium (COLACE) capsule 200 mg 200 mg, oral, 2 TIMES DAILY, First dose (after last modification) on Wed06/02/19 at 0900, Until Discontinued, Routine, Release Given 06/03/2019 20:27 EST 200 mg Given 06/03/2019 9:57 EST 200 mg Given 06/02/2019 20:42 EST 200 mg enoxaparin (LOVENOX) injection 40 mg 40 mg, subcutaneous, DAILY, First dose on Wed06/03/19 at 0900, Until Discontinued, Routine Given 06/06/2019 8:16 EST 40 mg Given 06/05/2019 10:25 EST 40 mg Given 06/04/2019 10:41 EST 40 mg gelatin adsorbable 100 cm sponge As needed, Starting on Wed05/31/19 at 0911, Until Wed05/31/19 at 1523, Intraprocedure Given 05/31/2019 9:11 EST 1 Eac h HYDROmorphone (DILAUDID) tablet 2-4 mg 2-4 mg, oral, EVERY 4 HOURS PRN, Starting on Wed05/31/19 at 1522, Until Wed06/06/19 at 1242, Pain, Discomfort, Routine, Release Given 06/04/2019 10:41 EST 2 mg Given 06/04/2019 6:05 EST 4 mg Given 06/03/2019 17:50 EST 4 mg magnesium hydroxide (MILK OF MAGNESIA) 400 mg/5 mL suspension 30 mL 30 mL, oral, AT BEDTIME, First dose on Wed06/02/19 at 2100, Until Discontinued, Routine Given 06/03/2019 6:42 EST 30 mL metoCLOPramide (REGLAN) injection 10 mg 10 mg, intravenous, EVERY 6 HOURS PRN, Starting on Wed06/01/19 at 0109, Until Wed06/06/19 at 1242, Heartburn, Routine Given 06/01/2019 1:41 EST 10 mg metoprolol XL (TOPROL-XL) tablet 25 mg 25 mg, oral, AT BEDTIME, First dose on Wed06/01/19 at 2100, Until Discontinued, Routine Given 06/05/2019 20:13 EST 2 5 mg Given 06/04/2019 20:19 EST 25 mg Given 06/03/2019 20:27 EST 25 mg morphine injection 2-4 mg [...] on Wed06/01/19 at 0900, Until Discontinued, Routine Given 06/06/2019 [...] Wed06/06/19 at 1242, Nausea, Routine pantoprazole (PROTONIX) tablet 40 mg 40 mg, [...] Tablets Given 06/02/2019 20:41 EST 3 Tablets sodium chloride 0.9 % irrigation As needed, Starting on Wed05/31/19 at 0911, Until Wed05/31/19 at 1523, Routine, Intraprocedure Given 05/31/2019 9:11 EST 1,000 mL Thrombin (Bovine) 5,000 unit topical solution As needed, Starting on Wed05/31/19 at 0912, Until Wed05/31/19 at 1523, Intraprocedure Given 05/31/2019 9:12 EST 1 Via l documented in this encounter Discontinued Medications Medication [...] 2018 (Given - Provider: Yelena Owen, LAUREL) 0022 (Given - Provider: Vito Trejo RN [...] refused) 0814 (Not Given - Provider: Quinn Adrian RN - Reason: Patient/family refused) enoxaparin (LOVENOX) injection [...] dose, Starting on 06/05/19 at 1630, Until Wed06/05/19 at 1748, Routine 1748 (Given - Provider: [...] Owen, LAUREL) 2012 (Given - Provider: Vito Trejo RN) Multivitamins with Minerals tablet 1 Tab 1 [...] Vito Trejo RN - Reason: Patient/family refused) 814 (Not Given - Provider: Quinn Adrian RN [...] 0123 (See Alternative - Provider: Yelena Owen, RN)1025 (See Alternative - Provider: Hugo Mckeon [...] Release 0605 (Given - Provider: Laurita Garcia RN)1040 (Given - Provider: Hugo Mckeon RN)1625 (Given - Provider: Hugo Mckeon RN)2019 (Given - Provider: Yelena Owen, LAUREL) 0123 (Given - Provider: Yelena Owen, LAUREL)1025 (Given - Provider: Hugo Mckeon RN)1413 (Given - Provider: Hugo Mckeon RN) 0008 [...] oral, EVERY 4 HOURS PRN, Starting on Wed06/03/19 at 1903, Until Wed06/06/19 at 1242, Nausea, [...] Count Last Ordered Date First Ordered Date magnesium citrate solution 296 mL 1 019 ondansetron (PF) (ZOFRAN) injection 4 mg 3 06/05/2019 05/31/2019 enoxaparin (LOVENOX) injection 40 mg 1 12/2018 ondansetron (ZOFRAN-ODT) dis integrating tablet 4 mg 1 06/03/2019 docusate sodium (COLACE) capsule 200 mg 1 1 08/03/2018 magnesium hydroxide (MILK OF MAGNESIA) 400 mg/5 mL suspension 30 mL 1 06/02/2019 pantoprazole (PROTONIX) tablet 40 mg 1 11/2018 polyethylene glycol 3350 (WI RALAX) packet 17 g 1 06/02/2019 senna (SENOKOT) tablet 3 Tab 1 06/02/2019 electrolyte-A (PLASMALYTE-A) bolus 500 mL 2 06/01/2019 metoCLOPramide (REGLAN) injection 10 mg 1 1 08/02/2018 metoprolol (LOPRESSOR) 5 mg in sodium chloride (NS) 0.9 % 50 mL IVPB 1 06/01/2019 metoprolol XL (TOPROL-XL) tablet 25 mg 2 05/31/2019 pantoprazole (PROTONIX) injection 40 mg 1 1 08/02/2018 acetaminophen (OFIRMEV) IV s olution 1,000 mg 1 05/31/2019 acetaminophen (TYLENOL) solu tion unit dose cup 650 mg 1 05/31/2019 acetaminophen (TYLENOL) suppository 650 mg 1 05/31/2019 acetaminophen (TYLENOL) tablet 650 mg 1 09/2018 atorvastatin (LIPITOR) tablet 10 mg 1 05/31 atropine 0.1 mg/mL syringe 0.5 mg 1 019 benzocaine-menthol (CEPACOL) 15-3.6 mg per lozenge 1 Lozenge 1 05/31/2019 bisacodyl (DULCOLAX) suppository 10 mg 1 calcium carbonate (TUMS) 200 mg calcium (500 mg) per chewable tablet tablet,chewable 1 Tab 1 05/31/2019 ceFAZolin (ANCEF) syringe 2 g 1 05/31/2019 diphenhydrAMINE (BENADRYL) i njection 12.5 mg 1 05/31/2019 docusate sodium (COLACE) capsule 100 mg 1 1 08/01/2018 electrolyte-A (PLASMALYTE-A) solution 1 09/2018 hydrALAzine (APRESOLINE) 10 mg in sodium chloride (NS) 0.9 % 50 mL IVPB 1 05/31/2019 HYDROmorphone (DILAUDID) tablet 2-4 mg 1 HYDROmorphone (PF) (DILAUDID ) 0.5 mg/0.5 mL syringe 0.3-0.5 mg 1 05/31/2019 lactated ringers (LR) infusion 3 05/31/2019 lidocaine (PF) 10 mg/mL (1 % ) injection 2 mg 2 05/31/2019 morphine injection 2-4 mg 1 05/31/2019 Multivitamins with Minerals tablet 1 Tab 1 05/31/2019 naloxone (NARCAN) injection 0.2 mg 1 2018 prochlorperazine edisylate ( COMPAZINE) injection 10 mg 1 05/31/2019 senna (SENOKOT) tablet 1 Tab 1 05/31/2019 Nursing Count Last Ordered Date [...] 05/2806/04/2019 documented in this encounter Care Teams Teller Head Relationship Specialty Start Date End Date Garcia Gonzales MD [address] [place] [address] PCP - General 09/03/09 documented as of this encounter
--- OUTSIDE RECORDS SUMMARY | 2024-01-20 01:06 | XMS_ITS | Encounter Summary ---
Author Organization [facility] Address [address] [place] [address] Care Team Providers Care Investment Underwriter Name Role Phone Garcia Gonzales MD Primary Care Provider [phone] Reason for Referral * Radiology Services (Routine) - New Request Specialty Diagnoses / Procedures Referred By Contac t Referred To Contact Diagnoses Cervical arthritis with myelopathy Procedures CERVICAL SPINE 4 OR MORE VIEWS Caleb Ahumada MD [address] [phone] Referral ID Status Reason Start Date Expiration Date V isits Requested Visits Authorized [id number] New Request 11/22/2018 1 1 * Radiology Services (Routine) - Authorization Not Required Specialty Diagnoses / Procedures Referred By Contac t Referred To Contact Diagnoses Cervical arthritis with myelopathy Procedures MR CERVICAL SPINE WO CONTRAST Caleb Ahumada MD [address] [address] Referral ID Status Reason Start Date Expiration Date Visits Requested Visits Authorized [id number] Authorization Not Required 11/22/2018 1 1 Reason for Visit * Reason Comments Back Pain LBP * Consult (Routine) - Closed Specialty Diagnoses / Procedures Referred By Contac t Referred To Contact Neurosurgery Diagnoses Lumbar stenosis Mehdi Matthews MD [address] [place] [address] Caleb Ahumada MD [address] [address] Referral ID Status Reason Start Date Expiration Date Visits Re quested Visits Authorized [id number] Closed 1 1 Encounter Details Date Type Department Care Team (Late st Contact Info) Description 11/22/2018 11:45 EDT Office Visit [facility] Neurosurgery - [address] [address] Caleb Ahumada MD [address] [place] [phone] Cervical arthritis with myelopathy (Primary Dx); Degenerative scoliosis in adult patient Discharge Disposition: Auto Discharge Social History Tobacco [...] M47.12 Other spondylosis with myelopathy, cervical region-M47.12[ICD-10-CM] M48.061 Spinal stenosis, lumbar region without neurogenic jamilah-M48.061[ICD-10-CM] M41.50 Other secondary scoliosis, site unspecified-M41.50[ICD-10-CM] documented in this encounter Discharge Disposition Disposition Code Departure Means Destination Auto Discharge documented in this encounter Progress Notes * Robi Ahumada MD, MD - 11/22/2018 1145 EDT The patient is referred by Dr Matthews for evaluation of lumbar stenosis and degenerative scoliosis. Mr Sam is a 73-year-old man with a history of atrial fibrillation on Eliquis, who presents withlow back pain and bilateral lower extremity numbness. The back pain goes back about 10 years. The numbness has been progressive over the last 2 years. Symptoms are worse with prolonged standing and walking for more than a quarter of a mile. He finds relief sitting in a somewhat flexed position in arecliner and with doing stretching exercises. His current Oswestry disability index is 15/50, and his pain scores are 2/4/2/7. Of note, he does report some urinary urgency with a poor stream and intermittent leakage. This has been progressive over the last couple of years. I reviewed the patient's imaging personally. MRI of the lumbar spine reveals the following: At L1-L2, there is mild to moderate central stenosis. At L2-L3, there is severe central stenosis. At L3-L4,there is severe stenosis and right foraminal stenosis. At L4-L5, there is severe central and bilateral foraminal stenosis. X-rays reveal a degenerative scoliosis with loss of height and lateral listhesis to the left at L4-L5. There is also grade 1 degenerative spondylolisthesis at L4-L5, which is increased in flexion. PAST MEDICAL HISTORY: Atrial fibrillation on Eliquis. Left total knee replacement, cataract surgery, hemorrhoid surgery, remote history of cellulitis in the right lower extremity, and a remote history of a C5 radiculopathy that resolved spontaneously. 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 He does not use tobacco. REVIEW OF SYSTEMS: Notable for intermittent hand cramping when reading the newspaper, as well as subjective decrease in strength in both hands. PHYSICAL EXAMINATION: Reveals a stocky man in no outward distress. He has a steady gait. He has full power in the deltoid, biceps, triceps, structural steel erection supervisor, iliopsoas, quadriceps, dorsiflexors, EHL, and plantar flexors. He does have a Susan sign on the right, but has no other signs of hyperreflexia. He denies any numbness in the upper extremities. He has some diminished sensation in the left lateral calf. IMPRESSION: Mr Sam is a 73-year-old man with back pain and neurogenic claudication with numbness as a result of multilevel lumbar stenosis and degenerative scoliosis/spondylolisthesis. I agree with Dr Matthews that decompression and instrumented fusion likely from L2 through L5 would be a reasonable surgical treatment strategy. At this point, the patient does feel fairly disabled by his symptoms. I am not optimistic that any medications or injections are likely to give the patient durable relief. I did discuss with the patient that his complaints of upper extremity weakness in the presence of a Susan sign may mean that he has a similar process involving the neck. If he were to go forward with surgery, it would be important to know about this beforehand. While we might not choose to doa cervical intervention before lumbar intervention, this may guide us towards using monitoring for SSEP and motor evoked potentials as a guard against a positioning related injury in the neck. The patient reports that Dr Matthews suggested he pursue his surgical treatment up here, so I will take the liberty of ordering those films, and he will come back and see us with a cervical MRI and x-rays in afew weeks. All questions were answered. Twenty-five minutes of this 50-minute [id number] visit were spent in patient counseling. documented in this encounter Plan of Treatment Scheduled Orders Name Type Priority Associated Diagnoses Orde r Schedule MR CERVICAL SPINE WO CONTRAST Imaging Routine Cervical arthritis with myelopathy Ordered: 11/22/2018 documented as of this encounter Procedures Procedure Name Priority Date/Time Associated Diagnosis Comments CERVICAL SPINE 4 OR MORE VIEWS Routine 11/22/2018 13:39 EDT Cervical arthritis with myelopathy documented in this encounter Results * CERVICAL SPINE 4 OR MORE VIEWS (11/22/2018 13:39 EDT) Anatomical Region Laterality Modality Other 11/22/2018 13:3 9 EDT 11/24/2018 16:52 EDT Narrative 11/24/2018 16:52 EDT L SPINE 4 OR MORE VIEWS, CERVICAL SPINE 4 OR MORE VIEWS ??11/22/2018 11:49 AM CLINICAL HISTORY: M48.061-Spinal stenosis, lumbar region without neurogenic [id number]; lumbar stenosis COMPARISON: Lumbar MRI outside hospital [...] HISTORY: M48.061-Spinal stenosis, lumbar region without neurogenic [id number]; lumbar stenosis COMPARISON: Lumbar MRI outside hospital [...] soft tissues. Some atherosclerotic calcification is present. Caleb Ahumada MD IMG DIAGNOSTIC IM AGING ORDERABLES documented in this encounter Visit Diagnoses Diagnosis Cervical arthritis with myelopathy- Primary Degenerative scoliosis in adult patient documented in this encounter Historical Medications * This list may reflect changes made after this encounter. Medication Sig Dispensed Refills Start Date End Date acetaminophen (TYLENOL ARTHRITIS PAIN) 650 mg CR tablet Take 650 mg by mouth as needed for Pain. sennosides (SENEXON ORAL) Take by mouth 2 times daily. atorvastatin (LIPITOR) 10 mg tablet Take 10 mg by mouth at bedtime as needed. metoprolol (LOPRESSOR) 25 mg tablet Take 25 mg by mouth daily. 01/18/2019 apixaban (ELIQUIS) 5 mg tablet Take 5 mg by mouth 2 times daily. 01/20/2019 cholecalciferol, Vitamin D3, 1,000 unit tablet Take 1,000 Units by mouth daily. 05/09/2019 Vitamin E 50 unit/mL drops Take 50 Units by mouth daily. 01/10/2019 added in this encounter Care Teams Investment Underwriter Relationship Specialty Start Date End Date Garcia Gonzales MD [address] [place] [address] PCP - General 09/03/09 documented as of this encounter
--- OUTSIDE RECORDS SUMMARY | 2024-01-20 01:06 | XMS_ITS | Encounter Summary ---
Author Organization [facility] Address [address] [place] [address] Care Team Providers Care Homeland Security Program Specialist Name Role Phone Garcia Hugo MD Primary Care Provider [phone] Reason for Referral * Radiology Services (Routine) - Receiving Office to Obtain Authorization Specialty Diagnoses / Procedures Referred By Contac t Referred To Contact Diagnoses Cervical spondylosis with myelopathy Procedures ENTIRE SPINE 2-3 VIEWS Murray Gomes MD [address] [place] [address] Referral ID Status Reason Start Date Expiration Date Visits Requested Visits Authorized [id number] Receiving Office to Obtain Authorization 01/20/2019 1 1 * Consult (Routine) - Closed Specialty Diagnoses / Procedures Referred By Contac t Referred To Contact Neurosurgery Diagnoses Cervical spondylosis with radiculopathy Murray Gomes MD [address] [place] [address] Caleb Ahumada MD [address] [facility], [address] [place] [address] Referral ID Status Reason Start Date Expiration Date V isits Requested Visits Authorized [id number] Closed Specialty Services Required 01/20/2019 1 1 Question Answer Reason for Request: sp C4-C6 lateral mass screws, T1-T2 pedicle screws, C7-T2 posterior decompression (01/18/19) Scheduling Comments (optional ? describe specific scheduling needs if applicable): 3 weeks with scoli films, apixaban held in interim Expected Discharge Date (Inpatient Only): 01/20/2019 * Referral (Routine/Next Available) - New Request Specialty Diagnoses / Procedures Referred By Lucia garcia Referred To Contact Diagnoses Cervical spondylosis with myelopathy Murray Gomes MD [address] [place] [id number] [facility] & [address] [address] Referral ID Status Reason Start Date Expiration Date Visits Requested Visits Authorized [id number] New Request Specialty Services Required 01/20/2019 1 1 Question Answer I certify that this patient is under my care and that I, or another Medicare allowed practitioner (DO TYLOR, LAW) working with me, had a uwke-ve-tbfc encounter with this patient on this date: 01/20/2019 I further certify that the rvif-kl-odvz encounter was in whole or in part [...] heatlh care needs and plan of care garcia hugo The patient? s homebound status is related to the following diagnoses, illness or condition (describe): sp C4-C6 lateral mass screws, T1-T2 pedicle screws, C7-T2 posterior decompression (01/18/19) The patient has a condition due to an illness or injury that restricts the ability to leave home except with: The assistance or supervision of another person Leaving the home is medically contraindicated due to (reason 1): Post surgical restrictions or conditions Leaving home requires a considerable and taxing effort with mobility limited by the following (criteria 1): The severity of the neurological disease limits functional ability and ambulation Nursing skilled care requested: Physical Therapy Physical therapy is needed for: Evaluation, Safety, Gait/Mobility Assessment and Training, Post Surgical Scheduling Comments (optional ? describe specific scheduling needs if applicable): catrachito Expected Discharge Date (Inpatient Only): 01/20/2019 Encounter Details Date Type Department Care Team (Late st Contact Info) Description 01/18/2019 5:49 EDT - 01/20/2019 16:26 EDT Hospital Encounter [facility] [address] [place] [id number] Caleb Ahumada MD [address] [facility], [address] [place] [address] Cervical spondylosis with myelopathy; Cervical spondylosis with radiculopathy Discharge Disposition: Home-Health Care Svc Social History Tobacco Use Types Packs/Day Years Used Date Smoking Tobacco: Former Smokeless Tobacco: Never Comments:quit 41 years ago Sex and Gender Information Value Date Recorded Sex Assigned at Not on file Gender Identity Male 06/01/2019 13:40 EST Sexual Orientation Not on file documented as of this encounter Last Filed Vital Signs Vital Sign Reading Time Taken Comments Blood Pressure 124/80 01/20/2019 1104 EDT Pulse - - Temperature 36.8 ??C (98.2 ??F) 01/20/2019 1104 EDT Respiratory Rate 18 01/20/2019 1104 EDT Oxygen Saturation 98% 01/20/2019 1104 EDT Inhaled Oxygen Concentration - - Weight 104.7 kg (230 lb 13.2 oz) 01/19/2019 0100 EDT Height 172.7 cm (5' 7.99) 01/19/2019 0100 EDT Body Mass Index 35.1 01/19/2019 0100 EDT documented in this encounter Functional Status [...] M47.22 Other spondylosis with radiculopathy, cervical region-M47.22[ICD-10-CM] M48.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, cervicothoracic region-M48.03[ICD-10-CM] Z98.1 Arthrodesis status-Z98.1[ICD-10-CM] M71.38 Other bursal cyst, other site-M71.38[ICD-10-CM] M48.02 Spinal stenosis, cervical region-M48.02[ICD-10-CM] I48.91 Unspecified atrial fibrillation-I48.91[ICD-10-CM] Z79.01 detention (current) use of anticoagulants-Z79.01[ICD-10-CM] Z87.891 Personal history of nicotine dependence-Z87.891[ICD-10-CM] Z96.652 Presence of left artificial knee joint-Z96.652[ICD-10-CM] I10 Essential (primary) hypertension-I10[ICD-10-CM] E78.00 Pure hypercholesterolemia, unspecified-E78.00[ICD-10-CM] documented in this encounter Discharge Summaries * Murray Gomes MD - 01/20/2019 1626 EDT Neurosurgery Discharge Summary Primary Care Provider: Garcia Hugo Attending Physician: Robi Ahumada MD Admit Date: 01/18/2019 Discharge Date: 01/20/19 Disposition: Home or self care Problems and Procedures Admitting Diagnosis: Cervical myelopathy Discharge Diagnosis: Same Additional Problems Managed in the Hospital Active Hospital Problems Diagnosis Date Noted ??? *Cervical spondylosis with myelopathy 01/18/2019 ??? Cervical spondylosis with radiculopathy 01/18/2019 Resolved Hospital Problems No resolved problems to display. Principal Procedure: C4-T2 posterior instrumented fusion Date: 01/18/19 Secondary Procedures: None Hospital Course 73 y.o. male with spontaneous arthrodesis of the lower cervical spine who presented with a significant stenosis at C7-T1 and T1-T2 and was a day of surgery admission for a C4-T2 posterior instrumented fusion on 01/18/[address] Ahumada. He tolerated the procedure well, his post-operative XR demonstrated satisfactory hardware position, and his pain was adequately controlled on post- operative day 2.As such, he was medically cleared for discharge on 01/20/19. During the hospital stay, the patient was evaluated by physical and occupational therapy. They recommended home with family and home health PT. The patient's incision was closed with kathrine, which require removal 2 weeks following surgery on 02/01/19. Allergies and Immunizations Allergies Allergen Reactions ??? Nsaids (Non-Steroidal Anti-Inflammatory Drug) GI upset ??? Other - See Comments opoids feels like I'm flying around the room ??? Tramadol ??? Vicodin [Hydrocodone-Acetaminophen] There is no immunization history on file for this patient. Transition of Care Plans Condition at Discharge Good Prognosis: good Assessment at Discharge pain controlled, no new deficits Spine: Brace: Yes cervical rigid collar Anticoagulation: No. Comments: patient instructed to hold apixaban until 3 week follow-up. Test results still pending from this admission None Relevant Studies During Admission Upright xray Imaging Required Yes Modality: xray scoli Interval: 3 weeks Last Lab Results at Discharge BUN: Lab Results Component Value Date BUN 10 01/20/2019 Creatinine: Lab Results Component Value Date CREATININE 0.63 (L) 01/20/2019 CBC: Lab Results Component Value Date WBC 8.67 01/20/2019 RBC 3.42 (L) 01/20/2019 HGB 10.9 (L) 01/20/2019 HCT 31.7 (L) 01/20/2019 MCV 93 01/20/2019 MCH 31.9 01/20/2019 MCHC 34.4 01/20/2019 PLT 130 (L) 01/20/2019 DIFFTYPE Automated 01/20/2019 Electrolytes: Lab Results Component Value Date NA 139 01/20/2019 K 3.7 01/20/2019 CL 106 01/20/2019 CO2 27 01/20/2019 HGB: Lab Results Component Value Date HGB 10.9 (L) 01/20/2019 No flowsheet data found. Discharge Follow Up Upcoming Appointments Feb 09, 2019 15:15 EDT Post-Op Visit with Robi Ahumada MD [facility] - [facility] (--) [address] [facility] [address] Follow-up appointments and procedures Amb Consult/Follow Up Neurosurgery Reason for Request: sp C4-C6 lateral mass screws, T1-T2 pedicle screws, C7-T2 posterior decompression (01/18/19) Scheduling Time Frame: 3 weeks with scoli films, apixaban held in interim Expected Discharge Date (Inpatient Only): 01/20/2019 Authorizing Provider: Murray Gomes MD Home Health Agency - Other I certify that this patient is under my care and that I, or another Medicare authorized non-physician practitioner (PA or DIGITAL ARTIST) or resident working with me, had a bpdk-pf-qmuz encounter with this patient on this date: 01/20/2019 I further certify that the cdww-jc-oskn encounter was in whole or in part related to the reason thepatient needs home health care.: Yes The patient has had a bkqi-tx-cxsq visit by me or one of my colleagues. The discharge summary or progress note will provide further details that support the need for the home health services and the plan of care.: Yes The MD/DO who will provide oversight of this patient's home heatlh care needs and plan of care: garcia hugo The patient???s homebound status is related to the following diagnoses, illness or condition (describe): sp C4-C6 lateral mass screws, T1-T2 pedicle screws, C7- T2 posterior decompression (01/18/19) Patient needs one or more of the following to leave home: The assistance or supervision of another person Leaving the home is medically contraindicated due to: Post surgical restrictions or conditions The following conditions illustrate the patient???s normal inability to leave home AND that leavinghome requires a considerable and taxing effort: The severity of the neurological disease limits functional ability and ambulation Skilled Care Requested: Physical Therapy Physical therapy is needed for: Evaluation Safety Gait/Mobility Assessment and Training Post Surgical Scheduling Time Frame: [email or web address] Expected Discharge Date (Inpatient Only): 01/20/2019 Authorizing Provider: Murray Gomes MD Follow-up labs and tests ENTIRE SPINE 2-3 VIEWS Complete by: As directed Authorizing Provider: Murray Gomes MD Luke Antonio Silveira, MD 01/29/2019 0:02 documented in this encounter Discharge Instructions * Discharge Instr - AVS First Page* Murray Gomes MD - 01/20/2019 14:26 EDT Do not take apixaban until scheduled outpatient neurosurgery follow-up and remember to ask providerabout resuming apixaban at time of follow-up. documented in this encounter Medications at Time [...] Cap by mouth 2 times daily. 01/20/2019 metoprolol XL (TOPROL-XL) 25 mg tablet Take 25 mg by mouth at bedtime. sennosides (SENEXON ORAL) Take by mouth 2 times daily. cholecalciferol, Vitamin D3, 1,000 unit tablet Take 1,000 Units by mouth daily. 05/09/2019 methocarbamol (ROBAXIN) 500 mg tablet Take 2 Tabs by mouth every 8 hours as needed for Muscle Spasms. 20 Tab 01/20/2019 01/23/2019 Multivitamins with Minerals tablet tablet Take 1 Tab by mouth daily. 01/21/2019 05/08/2019 oxyCODONE (ROXICODONE) 5 mg immediate release tablet Take 1 Tab by mouth every 4 hours as needed for Pain (discomfort). Daily Max: 30 mg 20 Tab 01/20/2019 05/08/2019 psyllium husk (METAMUCIL ORAL) Take by mouth daily. vit A/vit C/vit E/zinc/copper (PRESERVISION AREDS ORAL) Take by mouth daily. 019 documented as of this encounter Ordered Prescriptions Prescription Sig Dispensed Refills Start Date End Da docusate sodium (COLACE) 100 mg capsule Take 1 Cap by mouth 2 times daily. 01/20/2019 calcium carbonate (TUMS) 200 mg calcium (500 mg) tablet,chewable Take 1 Tab by mouth every 4 hours as needed for Heartburn. 01/20/2019 oxyCODONE (ROXICODONE) 5 mg immediate release tablet Take 1 Tab by mouth every 4 hours as needed for Pain (discomfort). Daily Max: 30 mg 20 Tab 01/20/2019 05/08/2019 Multivitamins with Minerals tablet tablet Take 1 Tab by mouth daily. 01/21/2019 05/08/2019 methocarbamol (ROBAXIN) 500 mg tablet Take 2 Tabs by mouth every 8 hours as needed for Muscle Spasms. 20 Tab 01/20/2019 01/23/2019 documented in this encounter Discharge Disposition Disposition Code Departure Means Destination Home-Health Care Svc documented in this encounter Progress Notes * Good Small MD - 01/20/2019 1034 EDT Neurosurgery Daily Progress Note Problems/ Cervical myelopathy Procedures/ C4-C6 lateral mass screws, T1-T2 pedicle screws, C7-T2 posterior decompression (01/18/19) 24 Hr/ XR obtained Ambulated Subjective/ Feels like he is making good progress Objective/ BP 119/75 Temp 36.6 ??C (97.9 ??F) (Tympanic) Resp 18 Ht 172.7 cm (67.99) Wt (!) 104.7 kg (230 lb 13.2 oz) SpO2 99% BMI 35.10 kg/m?? Alert Verbalizes appropriately, fluently Oriented x4 Follows commands x4 UE Strength - LEFT Deltoid (C5) 5/5 Bicep (C5, 6) 5/5 Tricep (C6, 7) 5/5 Storage Facility Housekeeper (C8) 5/5 Interrosei (T1) 5/5 UE Strength - RIGHT Deltoid (C5) 5/5 Bicep (C5, 6) 5/5 Tricep (C6, 7) 5/5 Storage Facility Housekeeper (C8) 5/5 Interrosei (T1) 5/5 Full strength and normal sensation in the bilateral lower extremities Dressing clean and dry Assessment/ 73 year old man status post C4-C6 lateral mass screws, T1-T2 pedicle screws, C7- T2 posterior decompression. Exam stable, pain well controlled. Plan/ Q4H neuro checks Maintain [place] J collar Regular diet DC drain AAT/OOB Pain control Dispo planning, PT/OT Good Small MD Neurosurgery resident 01/20/2019 10:34 Page 1221 with questions * Navya Gracia, PT - 01/20/2019 0960 EDT [facility] Initial Evaluation/Discontinue Note Date of Service: 01/20/2019 Reason for Referral: Evaluate and treat Precautions:ambulate as tolerated, up ad roebrth, miamiJ collar SUBJECTIVE: I've been using the walker because of my back pain. Pain: Location: low back Intensity: no rated Frequency: intermittent Quality: Sharp, ache Aggravating factors: mobility Alleviating factors: Medications, rest OBJECTIVE: Patient Profile: Patient is a 73 y.o. male admitted on 01/18/2019 secondary to Laminectomy C7-T2, instrumented fusion C5-T2, with the use o M47.12 Other spondylosis with myelopathy, cervical region-M47.12[ICD-10-CM] M47.22 Other spondylosis with radiculopathy, cervical region-M47.22[ICD-10-CM] The patient lives [id number] [facility] [address] Home environment Lives: with family Caregiver Support: 24-hour assist Equipment Available: Rolling walker Home Environment: house Home Layout: One story. Entry stairs: No stairs Prior Level of Function: Independent Services prior to admission: None Work/Leisure: Retired - active with [employer] former Medical/Surgical History: Current: Patient Active Problem List Diagnosis ??? Cervical spondylosis with myelopathy ??? Cervical spondylosis with radiculopathy Past: No past medical history on file. No past surgical history on file. Medications: Medications reviewed Arousal, Attention, and Cognition: Orientation: Alert Oriented to person, place, and time Cardiopulmonary: Vital Signs: BP 131/82 Integumentary/Anthropometric Characteristics: Palpation/Observation: Skin: skin intact with incision N/E due to intact dressing Posture: No problem noted Range of Motion and Joint Integrity: Active Range of Motion: Within normal limits except as noted Upper Quarter: Left Upper Extremity: Right Upper Extremity: Cervical Spine: immobilized in [place] J Collar Lower Quarter: Left Lower Extremity: Right Lower Extremity: Lumbar Spine: N/E Muscle Performance: Strength: Upper Quarter: organ builder strength 4/5, shoulder elevation, biceps 4/5 Left Upper Extremity: Right Upper Extremity: Cervical Spine: not evaluated due to surgery Lower Quarter: at least 4/5 throughout Left Lower Extremity: Right Lower Extremity: Lumbar Spine: N/E Sensation, Reflexes, and Nerve Integrity: Light Touch Sensation: Upper Quarter: Intact C2-T1 Lower Quarter: Intact for lower extremities Neuromotor Function/Development: No problems noted Balance, Locomotion, and Gait: Balance: No loss of balance observed throughout physical therapy session Locomotion: Not evaluated as wheelchair mobility does not apply to this patient. Gait: Assistive device/distance/assist/deviations: patient ambulate both with and without rolling walker.Increased pain in low back without assistive device, improved with B UE support. Otherwise no loss of balance both with and with out walker. Smooth, reciprocal gait. Self-Care, Home Management, Work, and Leisure: Mobility evaluation as follows: Rolling: patient instructed in bed mobility. Independent post instructions Supine to sit: independent Sit to supine: independent Sit to stand: independent Stand to sit: independent Bed to chair: independent Chair to bed: independent Informed Consent: The patient consented to the physical therapy evaluation. The patient agrees to and understands the physical therapy treatment plan and goals. Interventions Completed Today: Physical Therapy today at: 9:00 Total treatment time: 20 minutes. Timed code treatment minutes: 10 Intervention included: Therapeutic activity: during all mobility including bed mobility, transfers and gait this patient was instructed in techniques to maximize comfort and independence with activity while minimizing painand protecting surgical site. Patient was fit for rolling walker to allow early post operative ambulation which has positive impact on all body systems and assists in preventing secondary complications related to immobility. Patient/Family Education: Topic: Assistive device/technique Bed mobility Discharge planning Gait Positioning Precautions/protocol Role of therapy Safety Transfers Learner: patient Method: verbal Barriers to Learning: none noted Outcome: verbalized understanding and returned demonstration Team Communication: Discussed current mobility status with nursing for assistance outside of PT session. ASSESSMENT: Physical Therapy Diagnosis: This patient status post spine surgery presents with a PT diagnosis of decreased mobility with decreased activity tolerance related to post operative pain. Physical Therapy Prognosis: patient is moving very well and is cleared for discharge home with assist from his . He continues to have low back pain which may need to be addressed after he is healed from this surgery. Using a rolling walker alleviates some of this discomfort. Recommend follow upwith outpatient PT when cleared by MD. Short-Term Goals: N/A ?? Long-Term Goals:set and met ?? The patient will be able to perform bed mobility with modified independence assist demonstratingappropriate sequencing/motor planning and adherence to precautions. The patient and/or caregiver will be able to recall and demonstrate precautions. PLAN: Discontinue PT Recommended Discharge Destination: Home with family Recommended Discharge Services: Outpatient physical therapy Recommended Equipment Needs: Patient has all necessary equipment Other recommendations: No other consults recommended at this time Pager: [phone] NAVYA GRACIA, PT 01/20/2019 9:56 * Murray Gomes MD - 01/20/2019 0950 EDT Neurosurgery: Drain removed at bedside. Tip intact. No complications. Murray Gomes MD Neurosurgery Resident 01/20/2019 9:51 Neurosurgery Service Pager [phone] * Daily Alexandre OT - 01/20/2019 0816 EDT [facility] Acute Therapies [facility] Occupational Therapy Initial/Discontinue Evaluation Note Date of Service: 01/20/2019 Reason for Referral: Evaluate and treat Precautions: [place] J and Wear at all times except when eating or showering Ambulate SUBJECTIVE: I have always had a hard time with my socks' Oh, I guess I can't put my shirt on over my head Pain: Pt with neck pain, increased with activity, aches, better with rest, medications OBJECTIVE: Patient Profile: Nakul Sam is a R hand dominant 73 y.o. male admitted on 01/18/2019 secondary to Laminectomy C7-T2, instrumented fusion C5-T2, with the use o M47.12 Other spondylosis with myelopathy, cervical region-M47.12[ICD-10-CM] M47.22 Other spondylosis with radiculopathy, cervical region-M47.22[ICD-10-CM] The patient lives [id number] [facility] [id number] History of Present Illness/Injury: Pt admitted for spinal surgery Living Environment/Home Set-up: Patient lives with family in a single level house. Bathroom is downstairs with a tub/shower combo Caregiver Support: 24-hour assist Equipment Available: Cane, Rolling walker and long handled shoe horn Prior Level of Function: Activities of daily living: Independent Instrumental activities of daily living: Independent Medical/Surgical History: Current: Patient Active Problem List Diagnosis ??? Cervical spondylosis with myelopathy ??? Cervical spondylosis with radiculopathy Past: No past medical history on file. No past surgical history on file. Medications: Medications reviewed Body Functions and Performance Skills: Cardiovascular/Respiratory Systems Function: Vital Signs: Not evaluated due to stable per nsg documentation . Mental Functions: Specific mental functions: pt is able to easily follow all commands and demonstrates sustained attention. Pt underestimated difficulty with adls with C collar Global mental functions: oriented to name, other domains not explored Sensory Functions: Touch: BUE decreased sensation in B hands, especially thumbs Vision: wears glasses Hearing: pt hears normal conversational tones Neuro musculoskeletal and Movement Related Functions: Range of motion: AROM: BUE ( shoulder flexion to ~ 85 degrees, internal rotation ~ 1/2. LUE>RUE BLE wnl Strength: BUE/LE at least => 3/5. Formal MMT not performed due to emphasis on function Control of voluntary movement: gross and fine motor coordination has been impacted by decreased sensation and per pt: decreased motor control (decreased motor control not evident today) Skin and Related Structure Functions: Skin functions: CAMPBELL drain, incision not visualized Areas of Occupation and Performance Skills: Basic Activities of Daily Living: Feeding: pt is I Grooming: pt is I standing at sink side Bathing: pt demonstrates the performance components to take a seated shower Upper Body Dressing: max a Lower Body Dressing: total A for socks, able to don pants, seated I Toileting: pt reports I Functional Mobility: pt is I with bed mobility, is ambulating in the room at the level of supervision Instrumental Activities of Daily Living: Not evaluated due to his spouse will A . Leisure: Pt likes to read Social Participation: Pt is pleasant and cooperative Outcomes: Not evaluated, as not relevant to this assessment Informed Consent: The patient consented to the occupational therapy evaluation. The patient agrees to and understandsthe occupational therapy treatment plan and goals. Interventions completed today: Occupational therapy today at 850. Total treatment time: 30 minutes. Timed code treatment minutes: 15 Intervention included: Self-Care/Home Management : Demo and redemo of sock aide Verbal cues and demo to don shirt with R UE in first Verbal /written education ?? on bringing items up to visual height, use of supports to ease burden on holding items such as abook ?? Picture of sock aide ?? Recommend a shower chair ?? Recommend use of a grabber Pt verbalized understanding Patient/Family Education: See above Team Communication: With nsg ASSESSMENT: Pt is appropriate for occupational therapy evaluation/intervention secondary to limiting factors ofdecreased shoulder active range of motion, decreased UE sensation, C collar, and ability to reach his lower body . 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 Penitentiary Goals: Set and met Pt will use long handled equipment for lower body dressing Pt will demonstrate ability to don shirt with min contact A of 1 Pt will verbalize understanding of spinal precautions and impact on adls PLAN: Intervention: Discontinue occupational therapy at [facility] acute care. Further Data: none Patient/Family Education: Adapted ADLs Recommended Discharge Destination: Home with family Recommended Discharge Services: No occupational therapy follow-up services at this time Recommended Discharge Equipment: Shower chair and Sock-aide Pager: [phone] Daily Alexandre OT, 01/20/2019, 8:16 * Cristy Jordan - 01/19/2019 1447 EDT Spoke with pt re: Advanced Directive and his code status. He DOES wish to be full code. His spouse is HCP and she understands pt doesn't want to be mcc on machines. No changes in his AD. LAUREL AgrawalCCM #[id number] * Cristy Jordan - 01/19/2019 1410 EDT Initial Case Management/Social Work Assessment and Discharge Plan/Readmission Risk Assessment REASON FOR ADMISSION: <principal problem not specified> Patient understands reason for admission: Yes PATIENT CONTACT INFO VERIFIED: Yes PATIENT ADDRESS VERIFIED: Yes LIVING ARRANGEMENTS AND ACCESSIBILITY ISSUES: Living Arrangements: Spouse / significant other, Alone Levels: 1 Stairs to enter: 3 Handicap access: None Bathroom located on bedroom level?: Yes What in home social supports are available to the patient? Spouse / significant other Is 24/7 care available? Yes ADVANCED DIRECTIVES, POA &/or COLST IN PLACE: Healthcare Directive: Yes, patient has advance directive for healthcare treatment Copy in Chart: Yes, previous copy on file @ [facility] DIRECTIVES FOR FINANCES: TRANSPORTATION: Transportation: Family, Self CULTURAL, SCIENTOLOGY and/or LANGUAGE factors affecting health care/discharge planning: Spiritual/Cultural Requests: None Any factors affecting health care/discharge planning?: No Insurance in Place: Yes Medical Insurance: Yes Type of insurance: Medicare, Supplemental plan to Medicare Medicare type: A, B, D Supplemental: [employer] Referred to patient financial services: No DISCHARGE RISK ASSESSMENT: Polypharmacy, > 7 medications Total # selected above: Score of 1 - 2: This patient is at LOW RISK for re-hospitalization Tentative plan to address the risk of re-hospitalization for those at HIGH MODERATE RISK: Bring risk factors to attention of team to be addressed RAPT TOOL: Age: 66-73 Gender: Male Ambulation distance: 1-2 blocks Gait device: None Community Services: Home health, MOW, SASH-none of one time a week Will you live with someone who will care for you?: Yes RAPT Tool Score: 10 Patient expects to be discharged to: Home SBIRT: SASQ (Single Alcohol Screening Question) How many times in the past year have you had 5 or more drinks in a single day?: Never How many times in the past year have you used an illegal drug or used a prescription medication fornon-medical reasons?: Never Intervention in place/initiated?: No, not indicated FUNCTIONAL STATUS: Activities patient requires assistance: None Assistive Device: Cane COMMUNITY RESOURCES/SUPPORTS: Primary Care Provider: Garcia Hugo PCP Verified: Yes Specialists: Other(neurosurg) Type of Home Health Services: None DME Provider: Pharmacy: [id number] - [place], [place] - [address] [facility] [address] [facility] [address] Home Health: Other: POST HOSPITAL TRANSITION PLAN: Pt will be going to his spouses home at [address] [place] [address]. SHe will provide care and he would like [facility] to assist when heis first home (dressings, CP assessment) He otherwise feels good. He doesn't feel need for PT /may need OT. CHoice form completed. Pt has walekr and cane but has not been using them. Cristy Jordan 01/19/2019 14:10 * Murray Gomes MD - 01/19/2019 1102 EDT Neurosurgery Daily Progress Note Problems/ Cervical myelopathy Procedures/ C4-C6 lateral mass screws, T1-T2 pedicle screws, C7-T2 posterior decompression (01/18/19) 24 Hr/ Sp C7-T1 posterior decompression w instrumentation C4-T2 Drain output 130 last shift, 475 last 24 hours Hct 34.4 Subjective/ Doing well, no arm pain or numbness, some neck soreness with movement Objective/ BP 115/60 (BP Cuff Location: Right arm, Patient Position: Semi fowlers) Temp 36.9 ??C (98.5 ??F) (Tympanic) Resp 16 Ht 172.7 cm (67.99) Wt (!) 104.7 kg (230 lb 13.2 oz) SpO2 96% BMI 35.10 kg/m?? Alert Verbalizes appropriately, fluently Oriented x4 Follows commands x4 Shoulder shrug 5/5 UE Strength - LEFT Deltoid (C5) 5/5 Bicep (C5, 6) 5/5 Tricep (C6, 7) 5/5 Storage Facility Housekeeper (C8) 5/5 Interrosei (T1) 5/5 Ext. Carpi Radialis (C6) 5/5 Wrist flexor (C7) 5/5 UE Strength - RIGHT Deltoid (C5) 5/5 Bicep (C5, 6) 5/5 Tricep (C6, 7) 5/5 Storage Facility Housekeeper (C8) 5/5 Interrosei (T1) 5/5 Ext. Carpi Radialis (C6) 5/5 Wrist flexor (C7) 5/5 Persist Full strength and normal sensation in the bilateral lower extremities Incision clean/dry/intact Assessment/ 73 year old man status post C4-C6 lateral mass screws, T1-T2 pedicle screws, C7- T2 posterior decompression doing well post-operatively with improvement in pain and numbness. Plan/ Q4H neuro checks Maintain [place] J collar Regular diet DC hwang Transition from GRADUATE ASSISTANT to oral pain meds Monitor and record drain output AAT/OOB Pain control Upright Xrays when able Murray Gomes MD Neurosurgery resident 01/19/2019 11:02 Page 1375 with questions Associated attestation - Caleb Ahumada MD - 01/19/2019 1708 EDT Neurosurgery Staff Patient seen and independently examined. I have reviewed history, pertinent exam findings, and relevant imaging with the resident and agree with the resident note, with the following additions/amendments: Doing well. Pain controlled. Mobilize. XR. DC drain tomorrow. Shashi Ahumada MD Neurosurgery * Murray Gomes MD - 01/18/2019 9197 EDT Neurosurgery Post Procedure Note Problems/ Cervical myelopathy Procedures/ C4-C6 lateral mass screws, T1-T2 pedicle screws, C7-T2 posterior decompression (01/18/19) Subjective/ Still has bilateral radial hand numbness. Incisional pain, but no other new pain. Objective/ BP 111/79 Temp 36.2 ??C (97.2 ??F) (Tympanic) Resp 15 Ht 172.7 cm (68) Wt (!) 104.8 kg (231 lb) SpO2 97% BMI 35.12 kg/m?? Alert Verbalizes appropriately, fluently Oriented x4 Follows commands x4 Shoulder shrug 5/5 UE Strength - LEFT Deltoid (C5) 5/5 Bicep (C5, 6) 5/5 Tricep (C6, 7) 5/5 Storage Facility Housekeeper (C8) 5/5 Interrosei (T1) 5/5 Ext. Carpi Radialis (C6) 5/5 Wrist flexor (C7) 5/5 UE Strength - RIGHT Deltoid (C5) 5/5 Bicep (C5, 6) 5/5 Tricep (C6, 7) 5/5 Storage Facility Housekeeper (C8) 5/5 Interrosei (T1) 5/5 Ext. Carpi Radialis (C6) 5/5 Wrist flexor (C7) 5/5 Persist Full strength and normal sensation in the bilateral lower extremities Incision clean/dry/intact Assessment/ 73 year old man status post C4-C6 lateral mass screws, T1-T2 pedicle screws, C7- T2 posterior decompression doing well post-operatively with persistent bilateral hand numbness in the radial aspects ofhis hands. Plan/ Admit to floor Q4H neuro checks Maintain [place] J collar Regular diet Monitor and record drain output AAT/OOB Pain control Murray Gomes MD Neurosurgery resident 01/18/2019 16:23 Page 3726 with questions * Good Small MD - 01/18/2019 1356 EDT BRIEF OP NOTE PRE-OP DIAGNOSIS = Cervical myelopathy POST-OP DIAGNOSIS = Same as above PROCEDURE = C4-C6 lateral mass screws, T1-T2 pedicle screws, C7-T2 posterior decompression SURGEON = Rios Ahumada MD SPRAY DRIER OPERATOR HELPER = Good Small MD; Ed Lopez, MS4 ANESTHESIA = GETA COMPLICATIONS = None FINDINGS = Soft bone, fusion mass observed, ligamentous stenosis EBL = 400 cc IVF = See anesthesia record UOP = See anesthesia record SPECIMENS/CULTURES = None DRAINS = CAMPBELL drain SKIN = [place] DISPO = PACU then admission Good Small MD Neurosurgery resident 01/18/2019 14:01 Page 0773 with questions * Gladys Alvarado RN - 01/18/2019 0729 EDT anes team and dr mantilla aware LD eliquis 01/15 evening dose. * Keisha May RN - 01/10/2019 1034 EDT Nakul Sam has been instructed as follows regarding medication administration for the day of the scheduled procedure. Date of Surgery: 01/18/19 Instructions for Taking Medications Day of Surgery Medication Sig Last Dose Hold DOS Take DOS acetaminophen (TYLENOL ARTHRITIS PAIN) 650 mg CR tablet Take 650 mg by mouth as needed for Pain. Yes apixaban (ELIQUIS) 5 mg tablet Take 5 mg by mouth 2 times daily. 01/15/19 per Christian and :Lollis atorvastatin (LIPITOR) 10 mg tablet Take 10 mg by mouth daily. Yes cholecalciferol, Vitamin D3, 1,000 unit tablet Take 1,000 Units by mouth daily. 01/15/19 metoprolol (LOPRESSOR) 25 mg tablet Take 25 mg by mouth daily. Yes psyllium husk (METAMUCIL ORAL) Take by mouth daily. y sennosides (SENEXON ORAL) Take by mouth 2 times daily. y vit A/vit C/vit E/zinc/copper (PRESERVISION AREDS ORAL) Take by mouth. 01/15/19 documented in this encounter H&P Notes * Kirk Martinez MD - 01/18/2019 0749 EDT The preoperative history and physical which was performed within 30 days of this procedure has been reviewed and the clinically appropriate elements of the physical examination have been repeated. There are no changes to the documented history and physical or if so such changes are documented below Kirk Martinez MD 01/18/2019 7:26 Source Note - ROADING ENGINEER, SCAN 2 - 01/05/2019 16:48 EDT documented in this encounter OR Notes * OR Surgeon - Robi Ahumada MD, MD - 01/18/2019 0000 EDT OPERATIVE REPORT SERVICE DATE: 01/18/2019 PROCEDURE: 1. C4-T2 posterior instrumented fusion. 2. Inspection of arthrodesis, C4-C7. 3. Spinal image guidance. 4. Laminectomy C7-T2. 5. Synovial cyst resection, left C7-T1. SURGEON: Robi Ahumada MD SPRAY DRIER OPERATOR HELPER: Good Small MD ANESTHESIA: General. PREOPERATIVE DIAGNOSIS: Cervical myelopathy. POSTOPERATIVE DIAGNOSIS: Cervical myelopathy. 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 He is brought to the operating room for the above procedures. FINDINGS: There appeared to be a solid arthrodesis of C4 through C7. The instrumentation used was the [employer] VuePoint set. No CSF was seen. NARRATIVE: The patient was brought to the operating room and general endotracheal anesthesia induced. Preoperative antibiotics were given. The head was placed in Maloney head clamp. The patient was rolled prone onto the Ry table. The head was immobilized in a tuck position. Posteriorneck was shaved and prepped and draped in the usual sterile fashion. An appropriate time- out was performed. Subcutaneous tissues were infiltrated with 0.5% Marcaine and 1:200,000 epinephrine. A midline incision was made extending from C4 down to down to T2. This was carried through the dorsal fascia and subperiosteal dissection used to elevate the paraspinous muscles off of the spinous processes, lamina, lateral masses and transverse processes of the levels to be operated. Intraoperative x-ray confirmed correct level. A official.fm reference array was placed on the T2 spinous process. The O-arm was brought in the field,and the high resolution cone beam CT obtained. I then broke scrub and performed surgical planning for the T1 and T2 screws on the official.fm workstation. I then rescrubbed and reentered the field and confirmed a satisfactory registration. We placed pedicle screws as follows: A pilot plant operator hole was drilled on the right and then a pedicle finder advanced down the barrel of the T1 pedicle under continuous image guidance. The trajectory was sounded, tapped and sounded again prior to screw placement. An identical procedure was performed on theleft at T1 and bilaterally at T2. No breaches were identified, and all screw purchases were solid. The reference array was then removed. The facet joints to be fused were decorticated. We did inspectthe lateral masses at the cervical spine and did find spontaneous arthrodesis of C4 through C7. We then proceeded with lateral mass screw placement. Starting at the midpoint of the C4 lateral mass onthe right side, a pilot plant operator hole was drilled and a 14 mm hand drill advanced along a 30- degree rostral,30-degree lateral trajectory. The trajectory was sounded, tapped and sounded again. No breaches were identified. A 14 mm screw was placed without incident. An identical procedure was performed on theopposite side at C4 and then bilaterally at C5 and C6. We then completed a laminectomy of C7, T1 and T2. The spinous processes were removed with Leksell rongeurs and laminectomy completed with a combination of high-speed christine and Kerrison rongeurs. There was a synovial cyst at C7-T1 on the left-hand side, as suggested on the imaging. We removed the bone overlying the cyst and gradually dissected it off the underlying dura. It was ultimately removed without incident. With the stenosis alleviated, we irrigated the wound copiously. The lateral masses and transverse processes were decorticated. Local autograft was then divided between the lateral gutters. Rods were contoured and secured with caps. The caps were tightened and torqued appropriately. A small round JPdrain was left in the operative bed and the wound closed in layers with interrupted Vicryl suture. The skin was closed with kathrine. Sterile dressings were applied and the patient brought to the recovery area. Unless otherwise noted, there were no complications, no blood loss, no cultures obtained, no specimens removed, and no drains retained. S Rios Ahumada MD 52 PM / S Rios Ahumada MD nn Confirmation: [id number] Dictation ID: [id number] documented in this encounter Miscellaneous Notes * Plan of Care - Good Reardon RN - 01/20/2019 1629 EDT Problem: Daily Care Plan Goals Goal: Care Plan Documentation Outcome: Met This Shift 01/20/19 0832 Care Plan Focus Area of Focus Discharge Plan Goal This Shift discharge Pt Data: Pt tolerating PO intake without N/V, ambulating in hallway well tolerated. D/C order in place. Action: SL d/c'd without complications. VSS. BP 124/80 (BP Cuff Location: Right arm, Patient Position: Sitting) Temp 36.8 ??C (98.2 ??F) (Tympanic) Resp 18 Ht 172.7 cm (67.99) Wt (!) 104.7 kg (230 lb 13.2 oz) SpO2 98% BMI 35.10 kg/m?? Education provided: Wound care and neck movement. Rx provided and reviewed. Report called to [facility] at [facility]. Response: Pt verbalized understanding and demonstrated all education and instructions. Pt left floor at 1630 in W/C with transport and . * Plan of Care - Aracelis Pierre RN - 01/20/2019 0349 EDT Problem: Daily Care Plan Goals Goal: Care Plan Documentation 01/20/19 0045 Care Plan Focus Area of Focus Pain/ Comfort Goal This Shift adequate pain control overnight Data: Will have adequate pain control overnight. Action: Assessment, monitor vs and pain level, meds per order. Response: Pain 2-4/10 overnight, resting quietly in bed. ARACELIS PIERRE RN 01/20/2019 3:44 * Plan of Care - Good Reardon RN - 01/19/2019 1654 EDT Problem: Daily Care Plan Goals Goal: Care Plan Documentation Outcome: Met This Shift 01/19/19 0809 Care Plan Focus Area of Focus GI//Elimination Goal This Shift pt voids wdl Data: Pt POD1 to C7-T2 posterior decompression. Hwang removed at 1100. Pt DTV at 1700. Action: Educated Pt on DVT protocol. Encouraged fluids and assisted PT with ambulation. Response: 1600, Pt voiding in urinal 250 CYU. Will continue to monitor. Good Reardon RN 01/19/2019 16:52 * Plan of Care - Brooklyn Calabrese RN - 01/19/2019 0227 EDT Problem: High Fall Risk: Goal: Patient will Remain Free of Falls due to Med. Side Effects Outcome: Ongoing Problem: High Fall Risk: Goal: Patient Will Remain Free from Fall-Related Injury Outcome: Ongoing Problem: Sensory: Goal: Ability to compensate for vision loss will be supported Outcome: Ongoing Problem: Daily Care Plan Goals Goal: Care Plan Documentation Outcome: Ongoing 01/18/192054 Care Plan Focus Area of Focus Pain/ Comfort Goal This Shift pt will report adequate pain control Data: pt s/p laminectomy. Resting comfortably in bed. GRADUATE ASSISTANT available, pt is not utilizing Action: medicate per MAR, assist with repositioning Response: pt resting comfortably, no acute distress BOROKLYN CALABRESE RN 01/19/2019 2:20 Problem: High Fall Risk: Goal: Patient will Remain Free of Falls due to Altered Elimination Outcome: Ongoing Problem: High Fall Risk: Goal: Patient will Remain Free of Falls due to Altered Mobility Outcome: Ongoing * Plan of Care - Good Reardon RN - 01/18/2019 1900 EDT Problem: Daily Care Plan Goals Goal: Care Plan Documentation Outcome: Ongoing 01/18/19 1810 Care Plan Focus Area of Focus Education Goal This Shift orient to room and unit Data: Pt arrived from PACU to [facility] [facility] @ 1820 s/p C7-T2 Laminectomy and fusion posterior decompresion. VSS. Lungs clear, + pulses and CSMT's WDL throughout. Dressing CDI. Hwang draining CYU. [place] in place. Pt A&Ox3 and rating pain 0/10. IVF running @ 75ml/hr. Action: Oriented Pt to room. Administered medications per AUG. Response: Pt stated that he was comfortable. Call anand within reach. Will continue to monitor. * Anesthesia Post-Eval - Todd Faulkner MD, MD - 01/18/2019 9269 EDT Anesthesia Post op Note Nakul Sam [id number] Anesthesia received: General; Vital Signs: Temp: 36.7 ??C (98 ??F), Heart Rate: 97 BPM, BP: 126/85, Resp: 14, SpO2: 96 % Vital signs Stable: Yes Consciousness: Awake Patient's participation in evaluation:Able to participate Temperature Status: Normothermic Respiratory Status: Airway patent Supplemental O2: Nasal cannula Oxygen Saturation: Appropriate for condition Cardiovascular Status: Appropriate for condition Post-op Hydration: Adequate Nausea / Vomiting: None Pain Control: Adequate Current Pain Score: Numeric Pain Level (Scale 1-10): 4 Post-op Assessment: Tolerated procedure well, No evidence of recall Disposition: Inpatient Complications: No apparent anesthetic complications Todd Faulkner MD 01/18/2019 18:49 documented in this encounter Plan of Treatment Scheduled Referrals Name Type Priority Associated Diagnoses Orde r Schedule AMB CONS/FOLLOW UP HOME HEALTH SERVICES Outpatient Referral Routine Cervical spondylosis with myelopathy Ordered: 01/20/2019 AMB CONS/FOLLOW UP NEUROSURGERY Outpatient Referral Routine Cervical spondylosis with radiculopathy Ordered: 01/20/2019 documented as of this encounter Procedures Procedure Name Priority Date/Time Associated Diagnosis Comments ENTIRE SPINE 2-3 VIEWS Routine 02/09/2019 14:46 EDT Cervical spondylosis with myelopathy COMPLETE BLOOD COUNT AND DIFFERENTIAL Routine 01/20/2019 6:17 EDT BUN Routine 01/20/2019 6:17 EDT CREATININE Routine 01/20/2019 6:17 EDT ELECTROLYTES Routine 01/20/2019 6:17 EDT CERVICAL SPINE 2-3 VIEWS Routine 01/19/2019 13:29 EDT COMPLETE BLOOD COUNT AND DIFFERENTIAL Routine 01/19/2019 4:39 EDT BUN Routine 01/19/2019 4:39 EDT CREATININE Routine 01/19/2019 4:39 EDT ELECTROLYTES Routine 01/19/2019 4:39 EDT COMPLETE BLOOD COUNT STAT 01/18/2019 14:39 EDT CERVICAL SPINE 1 VIEW Routine 01/18/2019 13:47 EDT CERVICAL SPINE 1 VIEW Routine 01/18/2019 9:44 EDT CERVICAL SPINE 1 VIEW Routine 01/18/2019 8:40 EDT TYPE AND SCREEN Routine 01/18/2019 6:30 EDT ECG REPORT - SCANNED 01/05/2019 16:48 EDT documented in this encounter Results * ENTIRE SPINE 2-3 VIEWS (02/09/2019 14:46 EDT) Anatomical Region Laterality Modality Other 02/09/2019 14:4 6 EDT 02/13/2019 12:54 EDT Narrative 02/13/2019 12:54 EDT ENTIRE SPINE 2-3 VIEWS ??02/09/2019 2:46 PM Clinical History/Comments: M47.12-Other spondylosis with myelopathy, cervical [id number]; sp C4-C6 lateral mass screws, T1-T2 pedicle screws, C7-T2 posterior decompression (01/18/19). Technique: Upright PA and lateral views of the entire spine. Impression: Vertebral body heights are maintained. Cervicothoracic posterior fusion hardware appears intact. There is mature fusion of the image cervical vertebral bodies. No acute fractures. There is very mild left convex curvature of the thoracolumbar spine without significant coronal imbalance. There is mild exaggeration of upper thoracic kyphosis resulting mild positive sagittal balance. Procedure Note Zaid Avila MD, MD - 02/13/2019 ENTIRE SPINE 2-3 VIEWS 02/09/2019 2:46 PM Clinical History/Comments: M47.12-Other spondylosis with myelopathy, cervical [id number]; sp C4-C6 lateral mass screws, T1-T2 pedicle screws, C7-T2 posterior decompression (01/18/19). Technique: Upright PA and lateral views of the entire spine. Impression: Vertebral body heights are maintained. Cervicothoracic posterior fusion hardware appears intact. There is mature fusion of the image cervical vertebral bodies. No acute fractures. There is very mild left convex curvature of the thoracolumbar spine without significant coronal imbalance. There is mild exaggeration of upper thoracic kyphosis resulting mild positive sagittal balance. Murray Gomes MD IMG DIAGNOSTIC IMAGING ORDERABLES * (ABNORMAL) COMPLETE BLOOD COUNT AND DIFFERENTIAL (01/20/2019 6:17 EDT) WBC 8.67 4.0 - 10.4 K/cmm 01/20/2019 6:45 [facility] RBC 3.42(L) 4.36 - 5.78 M/cmm 01/20/2019 6:45 [facility] Hemoglobin 10.9(L) 13.8 - 17.3 gm/dl 01/20/2019 6:45 [facility] HCT 31.7(L) 39.5 - 50.2 % 01/20/2019 6:45 [facility] MCV 93 81 - 95 fl 01/20/2019 6:45 [facility] MCH 31.9 27.6 - 33.0 pg 01/20/2019 6:45 [facility] MCHC 34.4 32.8 - 36.4 gm/dl 01/20/2019 6:45 [facility] RDW-CV 12.7 <14.2 % 01/20/2019 6:45 [facility] RDW-SD 43.4 <46.0 fl 01/20/2019 6:45 [facility] PLT 130(L) 141 - 377 K/cmm 01/20/2019 6:45 [facility] MPV 11.0 9.5 - 12.7 fl 01/20/2019 6:45 [facility] % Neutrophils 64.3 % 01/20/2019 6:45 [facility] % Lymphocytes 25.1 % 01/20/2019 6:45 [facility] % Monocytes 9.8 % 01/20/2019 6:45 [facility] % Eosinophils 0.3 % 01/20/2019 6:45 [facility] % Basophils 0.2 % 01/20/2019 6:45 [facility] % Immature Grans 0.3 % 01/20/2019 6:45 [facility] ABS Neutrophils 5.56 2.20 - 8.85 K/cmm 01/20/2019 6:45 [facility] ABS Lymphs 2.18 1.09 - 3.30 K/cmm 01/20/2019 6:45 [facility] ABS Monocytes 0.85(H) 0.1 - 0.8 K/cmm 01/20/2019 6:45 [facility] ABS Eosinophils 0.03 0.03 - 0.61 K/cmm 01/20/2019 6:45 [facility] ABS Basophils 0.02 0.01 - 0.11 K/cmm 01/20/2019 6:45 [facility] ABS Immature Grans 0.03 0 - 0.06 K/cmm 01/20/2019 6:45 [facility] Type of Diff: Automated 01/20/2019 6:45 [facility] Blood specimen (specimen) BLOOD SPECIMEN / Unknown 01/20/2019 6:17 EDT 01/20/2019 6:34 EDT Good Small MD PACKAGES & DNA PROB E ORDERABLES [facility] [address] [place] [address] * (ABNORMAL) CREATININE (01/20/2019 6:17 EDT) Creatinine 0.63(L) 0.66 - 1.25 mg/dl 01/20/2019 7:02 EDT [facility] GFR, Calculated 96 >60 ml/min/1.7 3m2 01/20/2019 7:02 EDT [facility] Comment: eGFR calculated using CKD-EPI equation for non Americans. Multiply eGFR by 1.16 for Americans. Blood specimen (specimen) BLOOD SPECIMEN / Unknown 01/20/2019 6:17 EDT 01/20/2019 6:34 EDT Good Small MD CHEMISTRY & BLOOD G ORDERABLES Performing Organization Address [facility] de Phone Number [facility] [address] [place] [address] * BUN (01/20/2019 6:17 EDT) BUN 10 10 - 26 mg/dl 01/20/2019 7:02 EDT [facility] Blood specimen (specimen) BLOOD SPECIMEN / Unknown 01/20/2019 6:17 EDT 01/20/2019 6:34 EDT Good Small MD CHEMISTRY & BLOOD G ORDERABLES Performing Organization Address [facility] de Phone Number [facility] [address] [place] [address] * ELECTROLYTES (01/20/2019 6:17 EDT) Sodium 139 136 - 145 mEq/L 01/20/2019 7:02 EDT [facility] Potassium 3.7 3.5 - 5.0 mEq/L 01/20/2019 7:02 EDT [facility] Chloride 106 96 - 110 mEq/L 01/20/2019 7:02 EDT [facility] CO2 27 22 - 32 mEq/L 01/20/2019 7:02 EDT [facility] Blood specimen (specimen) BLOOD SPECIMEN / Unknown 01/20/2019 6:17 EDT 01/20/2019 6:34 EDT Good Small MD CHEMISTRY & BLOOD G ORDERABLES [facility] [address] [place] [address] * CERVICAL SPINE 2-3 VIEWS (01/19/2019 13:29 EDT) Anatomical Region Laterality Modality Other 01/19/2019 13:2 9 EDT 01/19/2019 16:33 EDT Narrative 01/19/2019 16:33 EDT CERVICAL SPINE 2-3 VIEWS ??01/19/2019 1:29 PM SIGNS AND SYMPTOMS/COMMENTS: ??sp fusion; upright AP and lateral centered on C7 COMPARISON: Multiple radiographs of the cervical spine with the most recent performed 0623 hours prior TECHNIQUE: Upright AP, Swimmer's, and 2 lateral views of the cervical spine FINDINGS: There is redemonstration of diffuse bone demineralization. The patient has undergone C7-T1 posterior decompression with C4-T2 posterior spinal fusion. The hardware is intact. The vertebral body and intervertebral disc space heights are unchanged. Again seen is slight anterolisthesis of C4 on C5, similar to preoperative images. Multilevel facet arthrosis and anterior osteophyte formation is unchanged. There is osteophytic change of the humeral head, presumed to be the left. There is no prevertebral soft tissue swelling. There are multiple posterior surgical kathrine overlying the cervical spine. IMPRESSION: 1. Unchanged cervical spine alignment with weightbearing compared to preoperative images 2. Multilevel degenerative changes, status post fusion. I have personally reviewed the images and the above interpretation and agree with the findings. Procedure Note Rell Jennings MD, - 01/19/2019 CERVICAL SPINE 2-3 VIEWS 01/19/2019 1:29 PM SIGNS AND SYMPTOMS/COMMENTS: sp fusion; upright AP and lateral centered on C7 COMPARISON: Multiple radiographs of the cervical spine with the most recent performed 0623 hours prior TECHNIQUE: Upright AP, Swimmer's, and 2 lateral views of the cervical spine FINDINGS: There is redemonstration of diffuse bone demineralization. The patient has undergone C7-T1 posterior decompression with C4-T2 posterior spinal fusion. The hardware is intact. The vertebral body and intervertebral disc space heights are unchanged. Again seen is slight anterolisthesis of C4 on C5, similar to preoperative images. Multilevel facet arthrosis and anterior osteophyte formation is unchanged. There is osteophytic change of the humeral head, presumed to be the left. There is no prevertebral soft tissue swelling. There are multiple posterior surgical kathrine overlying the cervical spine. IMPRESSION: 1. Unchanged cervical spine alignment with weightbearing compared to preoperative images 2. Multilevel degenerative changes, status post fusion. I have personally reviewed the images and the above interpretation and agree with the findings. Katja Marroquin MD IMG DIAGNOSTIC IMAGI NG ORDERABLES * (ABNORMAL) COMPLETE BLOOD COUNT AND DIFFERENTIAL (01/19/2019 4:39 EDT) WBC 10.11 4.0 - 10.4 K/cmm 01/19/2019 4:48 [facility] RBC 3.73(L) 4.36 - 5.78 M/cmm 01/19/2019 4:48 [facility] Hemoglobin 11.8(L) 13.8 - 17.3 gm/dl 01/19/2019 4:48 [facility] HCT 34.4(L) 39.5 - 50.2 % 01/19/2019 4:48 [facility] MCV 92 81 - 95 fl 01/19/2019 4:48 [facility] MCH 31.6 27.6 - 33.0 pg 01/19/2019 4:48 [facility] MCHC 34.3 32.8 - 36.4 gm/dl 01/19/2019 4:48 [facility] RDW-CV 12.4 <14.2 % 01/19/2019 4:48 [facility] RDW-SD 42.4 <46.0 fl 01/19/2019 4:48 [facility] PLT 140(L) 141 - 377 K/cmm 01/19/2019 4:48 [facility] MPV 10.7 9.5 - 12.7 fl 01/19/2019 4:48 EDT [facility] % Neutrophils 77.6 % 01/19/2019 4:48 EDT [facility] % Lymphocytes 12.4 % 01/19/2019 4:48 EDT [facility] % Monocytes 9.5 % 01/19/2019 4:48 EDT [facility] % Eosinophils 0.0 % 01/19/2019 4:48 EDT [facility] % Basophils 0.1 % 01/19/2019 4:48 EDT [facility] % Immature Grans 0.4 % 01/19/2019 4:48 EDT [facility] ABS Neutrophils 7.85 2.20 - 8.85 K/cmm 01/19/2019 4:48 EDT [facility] ABS Lymphs 1.25 1.09 - 3.30 K/cmm 01/19/2019 4:48 EDT [facility] ABS Monocytes 0.96(H) 0.1 - 0.8 K/cmm 01/19/2019 4:48 EDT [facility] ABS Eosinophils 0.00(L) 0.03 - 0.61 K/cmm 01/19/2019 4:48 EDT [facility] ABS Basophils 0.01 0.01 - 0.11 K/cmm 01/19/2019 4:48 EDT [facility] ABS Immature Grans 0.04 0 - 0.06 K/cmm 01/19/2019 4:48 T [facility] Type of Diff: Automated 01/19/2019 4:48 EDT [facility] Blood specimen (specimen) BLOOD SPECIMEN / Unknown 01/19/2019 4:39 EDT 01/19/2019 4:41 EDT Good Small MD PACKAGES & DNA PROB E ORDERABLES [facility] [address] [place] [address] * (ABNORMAL) CREATININE (01/19/2019 4:39 EDT) Creatinine 0.64(L) 0.66 - 1.25 mg/dl 01/19/2019 5:21 EDT [facility] GFR, Calculated 96 >60 ml/min/1.7 3m2 01/19/2019 5:21 EDT [facility] Comment: eGFR calculated using CKD-EPI equation for non Americans. Multiply eGFR by 1.16 for Americans. Blood specimen (specimen) BLOOD SPECIMEN / Unknown 01/19/2019 4:39 EDT 01/19/2019 4:41 EDT Good Small MD CHEMISTRY & BLOOD G ORDERABLES Performing Organization Address City/[facility]/ZIP Co de Phone Number [facility] [address] [place] [address] * BUN (01/19/2019 4:39 EDT) BUN 11 10 - 26 mg/dl 01/19/2019 5:21 EDT [facility] Blood specimen (specimen) BLOOD SPECIMEN / Unknown 01/19/2019 4:39 EDT 01/19/2019 4:41 EDT Good Small MD CHEMISTRY & BLOOD G ORDERABLES Performing Organization Address [facility] Co de Phone Number [facility] [address] [place] [address] * ELECTROLYTES (01/19/2019 4:39 EDT) Sodium 138 136 - 145 mEq/L 01/19/2019 5:21 EDT [facility] Potassium 4.0 3.5 - 5.0 mEq/L 01/19/2019 5:21 EDT [facility] Chloride 105 96 - 110 mEq/L 01/19/2019 5:21 EDT [facility] CO2 27 22 - 32 mEq/L 01/19/2019 5:21 EDT [facility] Blood specimen (specimen) BLOOD SPECIMEN / Unknown 01/19/2019 4:39 EDT 01/19/2019 4:41 EDT Good Small MD CHEMISTRY & BLOOD G ORDERABLES [facility] [address] [place] [address] * (ABNORMAL) COMPLETE BLOOD COUNT (01/18/2019 14:39 EDT) WBC 10.39 4.0 - 10.4 K/cmm 01/18/2019 14:57 EDT [facility] RBC 4.07(L) 4.36 - 5.78 M/cmm 01/18/2019 14:57 EDT [facility] Hemoglobin 13.2(L) 13.8 - 17.3 gm/dl 01/18/2019 14:57 T [facility] HCT 37.6(L) 39.5 - 50.2 % 01/18/2019 14:57 T [facility] MCV 92 81 - 95 fl 01/18/2019 14:57 EDT [facility] MCH 32.4 27.6 - 33.0 pg 01/18/2019 14:57 EDT [facility] MCHC 35.1 32.8 - 36.4 gm/dl 01/18/2019 14:57 T [facility] RDW-CV 12.3 <14.2 % 01/18/2019 14:57 T [facility] RDW-SD 42.2 <46.0 fl 01/18/2019 14:57 T [facility] PLT 164 141 - 377 K/cmm 01/18/2019 14:57 T [facility] MPV 10.6 9.5 - 12.7 fl 01/18/2019 14:57 [facility] Blood specimen (specimen) BLOOD SPECIMEN / Unknown 01/18/2019 14:39 EDT 01/18/2019 14:45 EDT Chinedu Gonzalez MD HEMATOLOGY & PF4 ORDERABLES Performing Organization Address City/[facility]/ZIP Co de Phone Number [facility] [address] [place] [address] * CERVICAL SPINE 1 VIEW (01/18/2019 13:47 EDT) Anatomical Region Laterality Modality Other 01/18/2019 13:4 7 EDT 01/18/2019 14:30 EDT Narrative 01/18/2019 14:30 EDT CERVICAL SPINE ??01/18/2019 1:47 PM Clinical History/Comments: Cervical spondylosis with myelopathy s/p C5 to T2 PSF, routine postop for no count, r/o foreign body. Technique: Lateral view cervical spine portable postoperative cross table. Findings: Posterior spinal fusion has been placed by history from cervical 5 to thoracic 2. Hardware is only partially seen in its midportion; of the visualized areas no unexpected foreign bodies are seen. Procedure Note Shravan Sharma MD, MD - 01/18/2019 CERVICAL SPINE 01/18/2019 1:47 PM Clinical History/Comments: Cervical spondylosis with myelopathy s/p C5 to T2 PSF, routine postop for no count, r/o foreign body. Technique: Lateral view cervical spine portable postoperative cross table. Findings: Posterior spinal fusion has been placed by history from cervical 5 to thoracic 2. Hardware is only partially seen in its midportion; of the visualized areas no unexpected foreign bodies are seen. Caleb Ahumada MD IMG DIAGNOSTIC IM AGING ORDERABLES * CERVICAL SPINE 1 VIEW (01/18/2019 9:44 EDT) Anatomical Region Laterality Modality Other 01/18/2019 9:44 EDT 01/18/2019 9:54 EDT Narrative 01/18/2019 9:54 EDT CERVICAL SPINE, CERVICAL SPINE ??01/18/2019 9:44 AM Clinical History/Comments: Cervical spondylosis with myelopathy, C5-T2 PSF, check level. Findings: Single lateral views of the cervical spine were submitted from intraoperative from intraoperative x-rays for confirmation of spinal levels. No level can't be determined from the radiograph at 8:36 AM due to overlying opacity from shoulders. Repeat radiograph from 9:38 AM demonstrates a probe at the C3-4 facet. Findings were discussed with Dr. Rios Ahumada, who agrees with the above interpretation. I have personally reviewed the images and the above interpretation and agree with the findings. Procedure Note Zaid Avila MD, MD - 01/18/2019 CERVICAL SPINE, CERVICAL SPINE 01/18/2019 9:44 AM Clinical History/Comments: Cervical spondylosis with myelopathy, C5-T2 PSF, check level. Findings: Single lateral views of the cervical spine were submitted from intraoperative from intraoperative x-rays for confirmation of spinal levels. No level can't be determined from the radiograph at 8:36 AM due to overlying opacity from shoulders. Repeat radiograph from 9:38 AM demonstrates a probe at the C3-4 facet. Findings were discussed with Dr. Rios Ahumada, who agrees with the above interpretation. I have personally reviewed the images and the above interpretation and agree with the findings. Caleb Ahumada MD IMG DIAGNOSTIC IM AGING ORDERABLES * CERVICAL SPINE 1 VIEW (01/18/2019 8:40 EDT) Anatomical Region Laterality Modality Other 01/18/2019 8:40 EDT 01/18/2019 9:54 EDT Narrative 01/18/2019 9:54 EDT CERVICAL SPINE, CERVICAL SPINE ??01/18/2019 9:44 AM Clinical History/Comments: Cervical spondylosis with myelopathy, C5-T2 PSF, check level. Findings: Single lateral views of the cervical spine were submitted from intraoperative from intraoperative x-rays for confirmation of spinal levels. No level can't be determined from the radiograph at 8:36 AM due to overlying opacity from shoulders. Repeat radiograph from 9:38 AM demonstrates a probe at the C3-4 facet. Findings were discussed with Dr. Rios Ahumada, who agrees with the above interpretation. I have personally reviewed the images and the above interpretation and agree with the findings. Procedure Note Zaid Avila MD, MD - 01/18/2019 CERVICAL SPINE, CERVICAL SPINE 01/18/2019 9:44 AM Clinical History/Comments: Cervical spondylosis with myelopathy, C5-T2 PSF, check level. Findings: Single lateral views of the cervical spine were submitted from intraoperative from intraoperative x-rays for confirmation of spinal levels. No level can't be determined from the radiograph at 8:36 AM due to overlying opacity from shoulders. Repeat radiograph from 9:38 AM demonstrates a probe at the C3-4 facet. Findings were discussed with Dr. Rios Ahumada, who agrees with the above interpretation. I have personally reviewed the images and the above interpretation and agree with the findings. Caleb Ahumada MD IMG DIAGNOSTIC IM AGING ORDERABLES * TYPE AND SCREEN (01/18/2019 6:30 EDT) ABO A [facility] Rh Factor Positive [facility] Antibody Screen Negative [facility] Specimen Expires: 01/21/2019 @ 23:59 [facility] 01/18/2019 6:30 EDT Caleb Ahumada MD BLOOD BANK TESTS Performing Organization Address City/State/[facility] Co de Phone Number [facility] [address] [place] [address] * ECG REPORT - SCANNED (01/05/2019 16:48 EDT) 01/05/2019 16:4 8 EDT Scan 2 Criminal Justice Instructor PROCEDURE/MINOR JACKY GICAL ORDERABLES documented in this encounter Visit Diagnoses Diagnosis Cervical spondylosis with myelopathy- Primary Cervical spondylosis with myelopathy Cervical spondylosis with radiculopathy Cervical spondylosis with myelopathy Cervical spondylosis with radiculopathy Cervical spondylosis with myelopathy documented in this encounter Administered Medications Inactive Administered Medications - up to 3 most recent administrations Medication Order MAR Action Action Date Dose Rate Site acetaminophen (TYLENOL) tablet 1,000 mg 1,000 mg, oral, EVERY 6 HOURS, First dose (after last modification) on Wed01/18/19 at 2015, Until Discontinued, Routine, Release Given 01/20/2019 11:23 EDT 1,000 mg Given 01/20/2019 5:45 EDT 1,000 mg Given 01/20/2019 0:12 EDT 1,000 mg atorvastatin (LIPITOR) tablet 10 mg 10 mg, oral, DAILY, First dose on Wed01/19/19 at 0900, Until Discontinued, Routine Given 01/20/2019 8:54 EDT 10 mg Given 01/19/2019 8:19 EDT 10 mg ceFAZolin (ANCEF) syringe 2 g 2 g, intravenous, Administer over 10 Minutes, PRE-OP ONCE, 1 dose, On Wed01/18/19 at 0645, Routine, Pre-Op DOS Rx Approved Given by Other 01/18/2019 8:05 EDT 2 g ceFAZolin (ANCEF) syringe 2 g 2 g, intravenous, Administer over 10 Minutes, INTRA-OP ONCE, 1 dose, On Wed01/18/19 at 1200, Routine Given by Other 01/18/2019 11:32 EDT 2 g cholecalciferol (Vitamin D3) tablet 1,000 Units 1,000 Units, oral, DAILY, First dose on Wed01/18/19 at 1845, Until Discontinued, Routine Given 01/20/2019 8:52 EDT 1,000 Units Given 01/19/2019 8:19 EDT 1,000 Units docusate sodium (COLACE) capsule 100 mg 100 mg, oral, 2 TIMES DAILY, First dose on Wed01/18/19 at 2100, Until Discontinued, Routine, Release Given 01/20/2019 8:52 EDT 100 mg Given 01/19/2019 20:22 EDT 100 mg Given 01/19/2019 8:20 EDT 100 mg electrolyte-A (PLASMALYTE-A) solution at 75 mL/hr, intravenous, CONTINUOUS, Starting on Wed01/18/19 at 1430, Until Verna 01/19/19 at 0635, Routine, Release Rate Documented 01/19/2019 4:00 EDT 75 mL/hr Rate Documented 01/19/2019 1:00 EDT 75 mL/hr Rate Documented 01/18/2019 23:03 EDT 75 mL/hr fentaNYL citrate (PF) injection 25-50 mcg 25-50 mcg, intravenous, EVERY 5 MIN PRN, Starting on Wed01/18/19 at 1327, Until Wed01/18/19 at 1745, Pain, Routine, Recovery (only) Given 01/18/2019 1 5:02 EDT 25 mcg Given 01/18/2019 14:31 EDT 25 mcg HYDROmorphone 1 mg/ml (DILAUDID) GRADUATE ASSISTANT syringe, 30 ml intravenous, GRADUATE ASSISTANT, Starting on Wed01/18/19 at 1530, Until Verna 25/19 at 1231, See PRN bolus orders for breakthrough pain. CLICK to see order details, Routine, GRADUATE ASSISTANT Dose (mg): 0.2, Lockout Interval (minutes): 10, Maximum Limit (mg/hr): 1.2 New Bag 01/18/2019 15:56 EDT lactated ringers (LR) infusion 30 mL/hr, intravenous, CONTINUOUS, Starting on Wed01/18/19 at 0645, Until Wed01/18/19 at 1946, Routine, Pre-Op DOS Rx Approved New Bag 01/18/2019 7:02 EDT 30 mL/hr 30 mL/hr lactated ringers (LR) infusion at 75 mL/hr, intravenous, CONTINUOUS, Starting on Wed01/18/19 at 1345, Until Wed01/18/19 at 1745, Routine, Recovery (only) Rate Documented 01/18/2019 14:05 EDT 75 mL/hr methocarbamol (ROBAXIN) tablet 1,000 mg 1,000 mg, oral, EVERY 8 HOURS PRN, Starting on Wed01/18/19 at 1946, Until Wed01/20/19 at 1841, Other, muscle spasms, Routine, Release Given 01/20/2019 16:07 EDT 1,000 mg Given 01/20/2019 8:55 EDT 1,000 mg Given 01/19/2019 18:31 EDT 1,000 mg methocarbamol (ROBAXIN) tablet 750 mg 750 mg, oral, EVERY 8 HOURS PRN, Starting on Wed01/18/19 at 1406, Until Wed01/18/19 at 1946, Other, muscle spasms, Routine, Release Given 01/18/2019 14:45 EDT 750 mg metoprolol (LOPRESSOR) 5 mg/5 mL injection 1 dose, Starting on Wed01/18/19 at 1422, Until Wed01/18/19 at 1431 metoprolol (LOPRESSOR) injection 2 mg 2 mg, intravenous, Once (Without Time Specified), 1 dose, Starting on Wed01/18/19 at 1413, Until Wed01/18/19 at 1431, Routine Given 01/18/2019 14:31 EDT 2 mg metoprolol XL (TOPROL-XL) tablet 25 mg 25 mg, oral, DAILY, First dose on Wed01/19/19 at 0900, Until Discontinued, Routine Given 01/20/2019 8:52 EDT 25 mg Given 01/19/2019 20:22 EDT 25 mg Multivitamins with Minerals tablet 1 Tab 1 Tablet, oral, DAILY, First dose on Wed01/18/19 at 1430, Until Discontinued, Routine, Release Given 01/20/2019 8:55 EDT 1 Tablet Given 01/19/2019 8:20 EDT 1 Tablet senna (SENOKOT) tablet 1 Tab 1 Tablet, oral, 2 TIMES DAILY, First dose on Wed01/20/19 at 0900, Until Discontinued, Routine, Release Given 01/20/2019 8:52 EDT 1 Tablet documented in this encounter Discontinued Medications Medication Sig Discontinue Reason Start Date End Da te Vitamin E 50 unit/mL drops Take 50 Units by mouth daily. Error 01/10/2019 metoprolol (LOPRESSOR) 25 mg tablet Take 25 mg by mouth daily. Error 01/18/2019 apixaban (ELIQUIS) 5 mg tablet Take 5 mg by mouth 2 times daily. 01/20/2019 documented as of this encounter Historical Medications * This list may reflect changes made after this encounter. Medication Sig Dispensed Refills Start Date End Date metoprolol XL (TOPROL-XL) 25 mg tablet Take 25 mg by mouth at bedtime. psyllium husk (METAMUCIL ORAL) Take by mouth daily. 019 vit A/vit C/vit E/zinc/copper (PRESERVISION AREDS ORAL) Take by mouth daily. 05/09/2019 added in this encounter Active and Recently Administered Medications Times are shown in EDT. Scheduled Medication Order 01/18/2019 01/19/2019 01/20/2019 acetaminophen (TYLENOL) tablet 1,000 mg(Linked Group 1) 1,000 mg, oral, EVERY 6 HOURS, First dose (after last modification) on Wed01/18/19 at 2015, Until Discontinued, Routine, Release 2054 (Given - Provider: Nestor Broussard RN) 001 (Not Given - Provider: Brooklyn Calabrese RN - Reason: Patient/family refused)0524 (Given - Provider: Brooklyn Calabrese RN)1152 (Given - Provider: Good Reardon RN)1736 (Given - Provider: Good Reardon RN) 0012 (Given - Provider: Aracelis Pierre RN)0545 (Given - Provider: Aracelis Pierre RN)1123 (Given - Provider: Good Reardon RN)1800 (Canceled Entry - Provider: Batch Job User Admin - Comment: Automatically canceled at discontinue of medication order) atorvastatin (LIPITOR) tablet 10 mg 10 mg, oral, DAILY, First dose on Wed01/19/19 at 0900, Until Discontinued, Routine 0819 (Given - Provider: Luz Castorena RN) 0854 (Given - Provider: Good Reardon RN) ceFAZolin (ANCEF) syringe 2 g (COMPLETED) 2 g, intravenous, Administer over 10 Minutes, PRE-OP ONCE, 1 dose, On Wed01/18/19 at 0645, Routine, Pre-Op DOS Rx Approved 0805 (Given by Other - Provider: Bal Bose RN - Comment: given in OR by Hernandez Bill AA) ceFAZolin (ANCEF) syringe 2 g (COMPLETED) 2 g, intravenous, Administer over 10 Minutes, INTRA-OP ONCE, 1 dose, On Wed01/18/19 at 1200, Routine 1132 (Given by Other - Provider: Bal Bose RN - Comment: Given by Angie Bill, alexandre in [place]) cholecalciferol (Vitamin D3) tablet 1,000 Units 1,000 Units, oral, DAILY, First dose on Wed01/18/19 at 1845, Until Discontinued, Routine 1827 (Not Given - Provider: Good Reardon RN - Reason: Patient/family refused) 0819 (Given - Provider: Luz Castorena RN) 0852 (Given - Provider: Good Reardon RN) docusate sodium (COLACE) capsule 100 mg 100 mg, oral, 2 TIMES DAILY, First dose on Wed01/18/19 at 2100, Until Discontinued, Routine, Release 2054 (Given - Provider: Nestor Broussard RN) 0820 (Given - Provider: Luz Castorena RN)2021 (Given - Provider: Pedro White RN) 0852 (Given - Provider: Good Reardon RN) metoprolol (LOPRESSOR) injection 2 mg (COMPLETED) 2 mg, intravenous, Once (Without Time Specified), 1 dose, Starting on Wed01/18/19 at 1413, Until Wed01/18/19 at 1431, Routine 1431 (Given - Provider: Sarah Hernandez RN) metoprolol XL (TOPROL-XL) tablet 25 mg 25 mg, oral, DAILY, First dose on Wed01/19/19 at 0900, Until Discontinued, Routine 2021 (Given - Provider: Pedro White, LAUREL) 0852 (Given - Provider: Good Reardon, RN) Multivitamins with Minerals tablet 1 Tab 1 Tablet, oral, DAILY, First dose on Wed01/18/19 at 1430, Until Discontinued, Routine, Release 1827 (Not Given - Provider: Good Reardon RN - Reason: Patient/family refused) 0820 (Given - Provider: Luz Castorena RN) 0855 (Given - Provider: Good Reardon, RN) senna (SENOKOT) tablet 1 Tab 1 Tablet, oral, 2 TIMES DAILY, First dose on Wed01/20/19 at 0900, Until Discontinued, Routine, Release 0852 (Given - Provid er: Good Reardon RN) Continuous Medication Order 01/18/2019 01/19/2019 01/20/2019 electrolyte-A (PLASMALYTE-A) solution () at 75 mL/hr, intravenous, CONTINUOUS, Starting on Wed01/18/19 at 1430, Until Wed01/19/19 at 0635, Routine, Release 1436 (New Bag - Provider: Sarah Hernandez RN)2303 (Rate Documented - Provider: Nestor Broussard RN) 0100 (Rate Documented - Provider: Brooklyn Calabrese, LAUREL)0400 (Rate Documented - Provider: Brooklyn Calabrese, RN)0700 (Completed - Provider: Good Reardon RN) HYDROmorphone 1 mg/ml (DILAUDID) GRADUATE ASSISTANT syringe, 30 ml (CANCELED) intravenous, GRADUATE ASSISTANT, Starting on Wed01/18/19 at 1530, Until Wed01/19/19 at 1231, See PRN bolus orders for breakthrough pain. CLICK to see order details, Routine, GRADUATE ASSISTANT Dose (mg): 0.2, Lockout Interval (minutes): 10, Maximum Limit (mg/hr): 1.2 1556 (New Bag - Provider: Sarah Hernandez RN) lactated ringers (LR) infusion (CANCELED) 30 mL/hr, intravenous, CONTINUOUS, Starting on Wed01/18/19 at 0645, Until Wed01/18/19 at 1946, Routine, Pre-Op DOS Rx Approved 0702 (New Bag - Provider: Gladys Alvarado, LAUREL) lactated ringers (LR) infusion (CANCELED) at 75 mL/hr, intravenous, CONTINUOUS, Starting on Wed01/18/19 at 1345, Until Wed01/18/19 at 1745, Routine, Recovery (only) 1405 (Rate Documented - Provider: Sarah Hernandez, LAUREL) PRN Medication Order 01/18/2019 01/19/2019 01/20/2019 bisacodyl (DULCOLAX) suppository 10 mg 10 mg, rectal, EVERY 48 HOURS PRN, Starting on Wed01/20/19 at 0000, Until Wed01/20/19 at 1841, Constipation, Routine, Release calcium carbonate (TUMS) 200 mg calcium (500 mg) per chewable tablet tablet,chewable 1 Tab 1 Tablet, oral, EVERY 4 HOURS PRN, Starting on Wed01/18/19 at 1407, Until Wed01/20/19 at 1841, Heartburn, Routine, Release fentaNYL citrate (PF) injection 25-50 mcg (CANCELED) 25-50 mcg, intravenous, EVERY 5 MIN PRN, Starting on Wed01/18/19 at 1327, Until Wed01/18/19 at 1745, Pain, Routine, Recovery (only) 1431 (Given - Provider: Sarah Hernandez, LAUREL)1502 (Given - Provider: Sarah Hernandez, LAUREL) hydrALAzine (APRESOLINE) 10 mg in sodium chloride (NS) 0.9 % 50 mL IVPB 10 mg, intravenous, Administer over 20 Minutes, EVERY 1 HOUR PRN, Starting on Wed01/18/19 at 1407, Until Wed01/20/19 at 1841, Routine, Release methocarbamol (ROBAXIN) tablet 1,000 mg 1,000 mg, oral, EVERY 8 HOURS PRN, Starting on Wed01/18/19 at 1946, Until Wed01/20/19 at 1841, Other, muscle spasms, Routine, Release 1041 (Given - Provider: Latoya Palacios RN)1831 (Given - Provider: Good Reardon, LAUREL) 0855 (Given - Provider: Good Reardon RN)1607 (Given - Provider: Good Reardon RN) methocarbamol (ROBAXIN) tablet 750 mg (CANCELED) 750 mg, oral, EVERY 8 HOURS PRN, Starting on Wed01/18/19 at 1406, Until Wed01/18/19 at 1946, Other, muscle spasms, Routine, Release 1445 (Given - Provider: Sarah Hernandez RN) ondansetron (PF) (ZOFRAN) injection 4 mg 4 mg, intravenous, EVERY 4 HOURS PRN, Starting on Wed01/18/19 at 1407, Until Wed01/20/19 at 1841, Nausea, Routine, Release oxyCODONE (ROXICODONE) immediate release tablet 5-15 mg 5-15 mg, oral, EVERY 4 HOURS PRN, Starting on Wed01/18/19 at 1405, Until Wed01/20/19 at 1841, Pain, discomfort, Routine, Release Linked Groups Order Group 1: acetaminophen (TYLENOL) tablet 1,000 mgJump to med 1,000 mg, oral, EVERY 6 HOURS, First dose (after last modification) on Wed01/18/19 at 2014, Until Discontinued, Routine, Release Or acetaminophen (TYLENOL) solution unit dose cup 650 mg (CANCELED) 650 mg, per ng tube, EVERY 6 HOURS, First dose (after last modification) on Wed01/18/19 at 2014, Until Discontinued, Routine, Release Or acetaminophen (TYLENOL) suppository 650 mg (CANCELED) 650 mg, rectal, EVERY 6 HOURS, First dose (after last modification) on Wed01/18/19 at 2014, Until Discontinued, Routine, Release documented in this encounter Orders Medications Ordered That Jefferson ht Not Have Been Administered Count Last Ordered Date First Ordered Date acetaminophen (TYLENOL) solu tion unit dose cup 650 mg 2 01/18/2019 acetaminophen (TYLENOL) solu tion unit dose cup 995 mg 1 01/18/2019 acetaminophen (TYLENOL) suppository 650 mg 2 01/18/2019 acetaminophen (TYLENOL) tablet 1,000 mg 1 0 01/18/2019 acetaminophen (TYLENOL) tablet 650 mg atropine 0.1 mg/mL syringe 0.5 mg 1 019 bisacodyl (DULCOLAX) suppository 10 mg calcium carbonate (TUMS) 200 mg calcium (500 mg) per chewable tablet tablet,chewable 1 Tab 1 01/18/2019 diphenhydrAMINE (BENADRYL) i njection 12.5 mg 1 01/18/2019 hydrALAzine (APRESOLINE) 10 mg in sodium chloride (NS) 0.9 % 50 mL IVPB 1 01/18/2019 HYDROmorphone (PF) (DILAUDID ) 0.5 mg/0.5 mL syringe 0.3-0.5 mg 1 01/18/2019 meperidine (PF) (DEMEROL) in jection 12.5 mg 1 01/18/2019 naloxone (NARCAN) injection 0.2 mg 1 2018 ondansetron (PF) (ZOFRAN) injection 4 mg 2 01/18/2019 oxyCODONE (ROXICODONE) immed iate release tablet 5-10 mg 1 01/18/2019 oxyCODONE (ROXICODONE) immed iate release tablet 5-15 mg 1 01/18/2019 phenylephrine HCl in 0.9% Na Cl (NEO_SYNEPHRINE) 20 mg/250 mL (80 mcg/mL) infusion solution 1 01/18/2019 Nursing Count Last Ordered Date First Orde red Date ACTIVITY INSTRUCTIONS 01/20/2019 BATHING INSTRUCTIONS 01/20/2019 DRIVING INSTRUCTIONS 01/20/2019 LIFTING INSTRUCTIONS 01/20/2019 WOUND CARE INSTRUCTIONS 01/20/2019 CONTRAINDICATION TO ANTICOAG ULATION THERAPY 01/18/2019 INSERT HWANG CATHETER 01/18/2019 PLACE ANTI-EMBOLISM STOCKINGS 01/18/2019 PL[address] SEQUENTIAL COMPRESSION DEVICE 01/18 OT Count Last Ordered Date First Orde red Date OT EVALUATION AND TREAT 01/18/2019 PT Count Last Ordered Date First Orde red Date PT EVALUATION AND TREAT 01/18/2019 Admission Count Last Ordered Date First Orde red Date STATUS: INPATIENT DOSA/DOPA DAY OF SURGERY/PROCEDURE ADMISSION 01/18/2019 Transfer Count Last Ordered Date First Orde red Date NOTIFY PPS OF DISCHARGE COMPLETE 01/21/20 19 NOTIFY PPS PATIENT ARRIVAL IN PACU 2018 NOTIFY PPS PATIENT TRANSFERRED OUT OF PACU 01/18/2019 PPS NOTIFICATION OF PATIENT ARRIVAL ON UNIT 1 01/18/2019 Discharge Count Last Ordered Date First Orde red Date DISCHARGE PATIENT 1 01/20/2019 Legal Count Last Ordered Date First Orde red Date MISCELLANEOUS DISCHARGE INSTRUCTIONS 2 12/27 documented in this encounter Care Teams Homeland Security Program Specialist Relationship Specialty Start Date End Date Garcia Hugo MD [address] [place] [address] PCP - General 09/03/09 documented as of this encounter
--- OUTSIDE RECORDS SUMMARY | 2024-01-20 01:06 | XMS_ITS | Encounter Summary ---
Author Organization [facility] Address [address] [place] [address] Care Team Providers Care Band Master Name Role Phone Garcia Gonzales MD Primary Care Provider [phone] Reason for Visit * Reason Onset Date Comments Suture / Staple Removal 01/25/2019 Encounter Details Date Type Department Care Team (Late st Contact Info) Description 01/25/2019 Telephone [facility] Neurosurgery - Main [address] [address] Brigette Moser RN Suture / Staple Removal Social History Tobacco Use Types Packs/Day Years [...] Encounter - Brigette Moser RN - 01/25/2019 1010 EDT [facility] from [facility] called for an to remove kathrine. Credit Professional advised 02/01/19 or after. documented in this encounter Plan of Treatment Not on file documented as of this encounter Visit Diagnoses Not on filedocumented in this encounter Care Teams Band Master Relationship Specialty Start Date End Date Garcia Gonzales MD [address] [place] [address] PCP - General 09/03/09 documented as of this encounter
--- OUTSIDE RECORDS SUMMARY | 2024-01-20 01:06 | XMS_ITS | Encounter Summary ---
Author Organization [facility] Address [address] [place] [address] Care Team Providers Care Flotation Tender Name Role Phone Garcia Gonzales MD Primary Care Provider [phone] Encounter Details Date Type Department Care Team (Late st Contact Info) Description 02/09/2019 14:20 EDT - 02/09/2019 23:59 EDT Hospital Encounter [address] [address] Caleb Ahumada MD [address] [place] [address], [address] [place] [phone] Discharge Disposition: Auto Discharge Social History Tobacco [...] M47.12 Other spondylosis with myelopathy, cervical region-M47.12[ICD-10-CM] documented in this encounter Medications at Time [...] ORAL) Take by mouth 2 times daily. apixaban (ELIQUIS) 5 mg tablet Take 5 mg by mouth 2 times daily. 06/06/2019 cholecalciferol, Vitamin D3, 1,000 unit tablet Take 1,000 Units by mouth daily. 05/09/2019 cyclobenzaprine (FLEXERIL) 10 mg tablet Take 1 Tab by mouth 3 times daily as needed for Muscle Spasms. 60 Tab 01/23/2019 05/08/2019 Multivitamins with Minerals tablet tablet Take [...] daily. 019 documented as of this encounter Discharge Disposition Disposition Code Departure Means Destination Auto Discharge Home documented in this encounter Plan of Treatment Not on file documented as of this encounter Visit Diagnoses Not on filedocumented in this encounter Care Teams Flotation Tender Relationship Specialty Start Date End Date Garcia Gonzales MD [address] [place] [address] PCP - General 09/03/09 documented as of this encounter
--- OUTSIDE RECORDS SUMMARY | 2024-01-20 01:06 | XMS_ITS | Encounter Summary ---
Author Organization [facility] Address [address] [place] [address] Care Team Providers Care Grinder Name Role Phone Garcia Gonzales MD Primary Care Provider [phone] Encounter Details Date Type Department Care Team (Late st Contact Info) Description 05/24/2019 Prep for Procedure [facility] Neurosurgery - [address] [id number] Queta Hall PA-C [address] [place] [address], [address] [place] [address] Social History Tobacco Use Types [...] on filedocumented in this encounter Care Teams Grinder Relationship Specialty Start Date End Date Garcia Gonzales MD [address] [place] [address] PCP - General 09/03/09 documented as of this encounter
--- OUTSIDE RECORDS SUMMARY | 2024-01-20 01:06 | XMS_ITS | Encounter Summary ---
Author Organization [facility] Address [address] [place] [address] Care Team Providers Care Baseball Umpire For Little [employer] Name Role Phone Garcia Gonzales MD Primary Care Provider [phone] Reason for Visit * Reason Onset Date Comments Procedure 05/09/2019 Follow-up 05/09/2019 Encounter Details Date Type Department Care Team (Late st Contact Info) Description 05/09/2019 Telephone [facility] - [address] [address] Caleb Ahumada MD [address] [place] [address], [address] [place] [address] Procedure; Follow-up Social History Tobacco Use Types Packs/Day Years [...] * Telephone Encounter - Susana Mackay - 05/12/2019 1410 EST Patient's surgery was cancelled for Thursday 05/10 due to an inpatient emergency. He called today to see if there has been a reschedule date. He was notified of a new surgical date of Thursday 05/31. He was advised that we will give him a call the day prior to surgery with the details. * Telephone Encounter - Susana Mackay - 05/09/2019 1412 EST Confirmed the following surgery details with the patient: Surgery time: 1:15 Arrival time: 11:15 Instructions were given to have nothing to eat after midnight/clear liquids up to 3 hours prior to the surgery time. * Telephone Encounter - Connie Merritt - 05/09/2019 1407 EST Patient called again for tomorrow's surgery time. Any update? Please call. * Telephone Encounter - Tanna Watt - 05/09/2019 1402 EST Pt requesting a call back at [phone] today with procedure time for tomorrow documented in this encounter Plan of Treatment Not on file documented as of this encounter Visit Diagnoses Not on filedocumented in this encounter Care Teams Baseball Umpire [employer] Relationship Specialty Start Date End Date Garcia Gonzales MD [address] [place] [address] PCP - General 09/03/09 documented as of this encounter
--- OUTSIDE RECORDS SUMMARY | 2024-01-20 01:06 | XMS_ITS | Encounter Summary ---
Author Organization [facility] Address [address] [place] [address] Care Team Providers Care Bleach Tester Name Role Phone Garcia Gonzales MD Primary Care Provider [phone] Reason for Visit * Reason Onset Date Comments Diagnostic Imaging Report 12/09/2018 MRI re sults Encounter Details Date Type Department Care Team (Late st Contact Info) Description 12/09/2018 Telephone [facility] Neurosurgery - [address] [address] Caleb Ahumada MD [address] [place] [address], [address] [place] [phone] Diagnostic Imaging Report (MRI results) Social History Tobacco Use Types Packs/Day Years [...] Telephone Encounter - Brigette Moser RN - 12/13/2018 1248 EDT The patient did not call back. * Telephone Encounter - Brigette Moser RN - 12/12/2018 0831 EDT Images from the original note were not included. Robi Ahumada MD Disogra, Beatrice, RN ?? Unless he is having major clinical change, he is fine to see me 12/13. ??Needs XR before. Message left for patient to call triage. Attempted to contact PCP as well. * Telephone Encounter - Brigette Moser RN - 12/09/2018 1548 EDT Hat Designer discussed with DAVIN Sethi. * Telephone Encounter - Cristy Winter - 12/09/2018 0803 EDT Patient had an MR Neuro yesterday at [facility]. Dr Romero office ([facility]) is faxing the results this AM. Dr Ahumada needs to look at the results soon Please get these reports to Dr Ahumada as soon as possible documented in this encounter Plan of Treatment Not on file documented as of this encounter Visit Diagnoses Not on filedocumented in this encounter Care Teams Bleach Tester Relationship Specialty Start Date End Date Garcia Gonzales MD [address] [place] [address] PCP - General 09/03/09 documented as of this encounter
--- OUTSIDE RECORDS SUMMARY | 2024-01-20 01:06 | XMS_ITS | Encounter Summary ---
Author Organization [facility] Address [address] [place] [address] Care Team Providers Care Cement Fittings Maker Name Role Phone Garcia Gonzales MD Primary Care Provider [phone] Reason for Visit * Reason Onset Date Comments Discuss Surgery 05/08/2019 Prep for surgery on 05/10 Encounter Details Date Type Department Care Team (Late st Contact Info) Description 05/08/2019 Telephone [facility] Neurosurgery - [address] [address] Caleb Ahumada MD [address] [place] [address], [address] [place] [address] Discuss Surgery (Prep for surgery on 05/10 ) Social History Tobacco Use Types Packs/Day Years [...] Telephone Encounter - Brigette Moser RN - 05/08/2019 1519 EST The patient phoned to discuss which medications he may continue prior to his procedure. He claims to have received no preoperative instruction. He did receive specific instruction by phone on 05/03/19. He has the preoperative booklet in his possession. He was quite upset that he had not been given acheck in time as of yet. Administrative And Program Specialist advised that the schedule is under review at this time and he will be notified tomorrow. * Telephone Encounter - Libby Waterman - 05/08/2019 1435 EST Patient was concerned about his medications and he wanted to make sure that he could still take hisAcetaminophen daily. He just wants to be reassured that he is following his protocol. Please call documented in this encounter Plan of Treatment Not on file documented as of this encounter Visit Diagnoses Not on filedocumented in this encounter Care Teams Cement Fittings Maker Relationship Specialty Start Date End Date Garcia Gonzales MD [address] [place] [address] PCP - General 09/03/09 documented as of this encounter
--- OUTSIDE RECORDS SUMMARY | 2024-01-20 01:06 | XMS_ITS | Encounter Summary ---
Author Organization [facility] Address [address] [place] [address] Care Team Providers Care Payroll Administrative Assistant Name Role Phone Garcia Gonzales MD Primary Care Provider [phone] Reason for Visit * Reason Onset Date Comments Surgery Scheduling 12/15/2018 Encounter Details Date Type Department Care Team (Late st Contact Info) Description 12/15/2018 Telephone [facility] Neurosurgery - [address] [address] Caleb Ahumada MD [address] [place] [address], [address] [place] [phone] Surgery Scheduling Social History Tobacco Use Types Packs/Day Years [...] Telephone Encounter - Renea Petersen RN - 12/15/2018 1038 EDT Spoke with patient who was notified that he is not able to find someone close to him who is willingto obtain the swab and send the results, then he will need to present to the clinic to have it done. Patient verbalized understanding and will contact us once he hears back from the local hospital tolet us know their decision. * Telephone Encounter - Lizz Adrian - 12/15/2018 1003 EDT Spoke with Nakul and scheduled his surgery with Dr. Ahumada on 01/18/19 at [facility]. Nakul is aware thathe will need to schedule a preop physical with his PCP within 30 days of his surgery date and that our office will fax our preop form to their office. Nakul is also aware that he will receive a preopcall from anesthesia prior to his surgery. Nakul verbalized understanding During the conversation, he stated that his PCP's office is not able to perform the MRSA swab. He also stated that he contacted his local hospital but he hasn't heard back from them. He's inquiring where he should go for the swab if he's not able to have it has his local hospital. documented in this encounter Plan of Treatment Not on file documented as of this encounter Visit Diagnoses Not on filedocumented in this encounter Care Teams Payroll Administrative Assistant Relationship Specialty Start Date End Date Garcia Gonzales MD [address] [place] [address] PCP - General 09/03/09 documented as of this encounter
--- OUTSIDE RECORDS SUMMARY | 2024-01-20 01:07 | XMS_ITS | Encounter Summary ---
Author Organization [facility] Address [address] [place] [address] Care Team Providers Care Shipping Checker Name Role Phone Garcia Gonzales MD Primary Care Provider [phone] Encounter Details Date Type Department Care Team (Late st Contact Info) Description 12/18/2009 10:50 EDT - 12/18/2009 23:59 EDT Hospital Encounter [facility] Ophthalmology - [address] [address] Shravan Narayanan MD [address] [facility], [address] [place] [phone] Discharge Disposition: Home or Self Care Social History Tobacco Use Types Packs/Day Years Used Date Smoking Tobacco: Never Assessed Sex and Gender Information Value Date Recorded Sex Assigned at Not on file Gender Identity Male 06/01/2019 13:40 EST Sexual Orientation Not on file documented as of this encounter Discharge Disposition Disposition Code Departure Means Destination Home or Self Senior Living documented in this encounter Progress Notes * Shravan Narayanan MD - 12/18/2009 0000 EDT DIVISION OF OPHTHALMOLOGY [facility] December 18, 2009 Hernandez [facility]cleod [facility] [address], [address] [place] [address] Dear Hernandez: Your nice patient, Mr Sam, was seen again. 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 On my examination today, he has subfoveal scarring in the right eye and juxtafoveal scarring in the left eye. I do not see any definite subretinal fluid, hard exudate, or hemorrhage in either eye. An OCT was performed today, which shows no change from the OCTs that you have done previously. 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 He does not have typical drusen, which makes it less likely that he has ARMD, though this is certainly in the differential diagnosis. My suggestion is that he get back to you for ongoing followup with the idea that I am more than glad to see him again as you see fit. He will use an Amsler grid on a daily basis and report to usany sudden changes. I have made it clear to him that should he notice any changes, he cannot assumethat it is a benign problem and that any new change requires expeditious reassessment, i.e., to 48 hours. Thanks so much for letting me take part in the care of with this nice gentleman. Sincerely, Electronically Signed by Shravan Narayanan MD 12/23/2009 14:02 Shravan Narayanan MD [facility] [address] [place] [address] - Shravan Narayanan MD - LW Job ID: SM Doc ID: [id number] Ext Doc ID: [id number] cc: Hernandez Mcleod OD documented in this encounter Plan of Treatment Not on file documented as of this encounter Visit Diagnoses Not on filedocumented in this encounter Care Teams Shipping Checker Relationship Specialty Start Date End Date Garcia Gonzales MD [address] [place] [address] PCP - General 09/03/09 documented as of this encounter
--- OUTSIDE RECORDS SUMMARY | 2024-01-20 01:07 | XMS_ITS | Data Portability ---
Author Organization [place] [facility] Address [place] [address] Assessment No assessment recorded. Plan of Treatment Reminders Order Date Submit Date Provider Last Modified By Organization Details Last Modified Time Details Appointments hospital follow up 2023 03:00P M ANALISA CHAVARRIA Not available Not available Not available Follow Up 2023 12:10P M ANALISA CHAVARRIA Not available Not available Not available Lab None recorded. Referral None recorded. Procedures None recorded. Surgeries None recorded. Imaging None recorded. Medication Orders None recorded. Patient TargetsNo targets recorded. Patient InstructionsNo instructions recorded. Reason for Referral None Reported. Results Created Date Observation Date Name Description Value Unit Range Abnormal Flag LastModifiedBy Organization Detail LastModifiedTime 01/13/20 24 01/13/2024 COMPL ETE BLOOD COUNT W/DIF F WBC 6.18 10_3/ uL 4.4-10 .8 normal Not Available [address] [place], [address] 01/13/2024 19:13:45 01/13/20 24 01/13/2024 COMPL ETE BLOOD COUNT W/DIF F RBC 4.68 10_6/ uL 4.36-5 .78 normal Not Available [address] [place], [address] 01/13/2024 19:13:45 01/13/20 24 01/13/2024 COMPL ETE BLOOD COUNT W/DIF F HGB 15.3 g/dL 13.5-1 7.5 normal Not Available [address] [place], [address] 01/13/2024 19:13:45 01/13/20 24 01/13/2024 COMPL ETE BLOOD COUNT W/DIF F HCT 44.4 % 40.0-5 0.0 normal Not Available [address] [place], [address] 01/13/2024 19:13:45 01/13/20 24 01/13/2024 COMPL ETE BLOOD COUNT W/DIF F MCV 95 fL 80-95 normal Not Available [address] [place], [address] 01/13/2024 19:13:45 01/13/20 24 01/13/2024 COMPL ETE BLOOD COUNT W/DIF F MCH 32.7 pg 27.0-3 3.0 normal Not Available [address] [place], [address] 01/13/2024 19:13:45 01/13/20 24 01/13/2024 COMPL ETE BLOOD COUNT W/DIF F MCHC 34.5 % 32.0-3 6.0 normal Not Available [address] [place], [address] 01/13/2024 19:13:45 01/13/20 24 01/13/2024 COMPL ETE BLOOD COUNT W/DIF F RDW 11.9 % 11.8-1 4.1 normal Not Available [address] [place], [address] 01/13/2024 19:13:45 01/13/20 24 01/13/2024 COMPL ETE BLOOD COUNT W/DIF F platelet count 152 10_3/ uL 130-40 0 normal Not Available [address] [place], [address] 01/13/2024 19:13:45 01/13/20 24 01/13/2024 COMPL ETE BLOOD COUNT W/DIF F MPV 10.4 fL 8.0-11 .0 normal Not Available [address] [place], [address] 01/13/2024 19:13:45 01/13/20 24 01/13/2024 COMPL ETE BLOOD COUNT W/DIF F neutrophils % 50.0 % Not Available [address] [place], [address] 01/13/2024 19:13:45 01/13/20 24 01/13/2024 COMPL ETE BLOOD COUNT W/DIF F lymphocytes % 36.7 % Not Available [address] [place], [address] 01/13/2024 19:13:45 01/13/20 24 01/13/2024 COMPL ETE BLOOD COUNT W/DIF F monocytes % 10.8 % Not Available [address] [place], [address] 01/13/2024 19:13:45 01/13/20 24 01/13/2024 COMPL ETE BLOOD COUNT W/DIF F eosinophils % 1.6 % Not Available [address] [place], [address] 01/13/2024 19:13:45 01/13/20 24 01/13/2024 COMPL ETE BLOOD COUNT W/DIF F basophils % 0.3 % Not Available [address] [place], [address] 01/13/2024 19:13:45 01/13/20 24 01/13/2024 COMPL ETE BLOOD COUNT W/DIF F immature grans % 0.6 % Not Available [address] [place], [address] 01/13/2024 19:13:45 01/13/20 24 01/13/2024 COMPL ETE BLOOD COUNT W/DIF F nucleated RBC 0.0 % 0.0-0. 3 normal Not Available [address] [place], [address] 01/13/2024 19:13:45 01/13/20 24 01/13/2024 COMPL ETE BLOOD COUNT W/DIF F absolute neutrophil count 3.08 10_3/ uL 1.2-6. 7 normal Not Available [address] [place], [address] 01/13/2024 19:13:45 01/13/20 24 01/13/2024 COMPL ETE BLOOD COUNT W/DIF F absolute lymphocyte count 2.27 10_3/ uL 1.2-3. 4 normal Not Available [address] [place], [address] 01/13/2024 19:13:45 01/13/20 24 01/13/2024 COMPL ETE BLOOD COUNT W/DIF F absolute monocyte count 0.67 10_3/ uL 0.1-0. 8 normal Not Available [address] [place], [address] 01/13/2024 19:13:45 01/13/20 24 01/13/2024 COMPL ETE BLOOD COUNT W/DIF F absolute eosinophil count 0.10 10_3/ uL 0.0-0. 7 normal Not Available [address] [place], [address] 01/13/2024 19:13:45 01/13/20 24 01/13/2024 COMPL ETE BLOOD COUNT W/DIF F absolute basophil count 0.02 10_3/ uL 0.0-0. 2 normal Not Available [address] [place], [address] 01/13/2024 19:13:45 01/13/20 24 01/13/2024 PROTH ROMBI N TIME prothrombin time 12.2 sec 9.1-11 .1 high Not Available [address] [place], [address] 01/13/2024 19:25:47 01/13/20 24 01/13/2024 PROTH ROMBI N TIME INR 1.2 0.9-1. 1 high Not Available [address] [place], [address] 01/13/2024 19:25:47 01/13/20 24 01/13/2024 PTT ACTIV ATED PTT activated 25.4 sec 23.6-3 2.8 normal Not Available [address] [place], [address] 01/13/2024 19:25:47 01/13/20 24 01/13/2024 COMPR EHENS FRANKIE METAB OLIC PANEL calcium 8.4 mg/dL 8.5-10 .1 low Not Available [address] [place], [address] 01/13/2024 19:27:48 01/13/20 24 01/13/2024 COMPR EHENS FRANKIE METAB OLIC PANEL glucose 106 mg/dL 74-106 normal Not Available [address] [place], [address] 01/13/2024 19:27:48 01/13/20 24 01/13/2024 COMPR EHENS FRANKIE METAB OLIC PANEL BUN 17 mg/dL 7-18 normal Not Available [address] [place], [address] 01/13/2024 19:27:48 01/13/20 24 01/13/2024 COMPR EHENS FRANKIE METAB OLIC PANEL creatinine 0.8 mg/dL 0.70-1 .30 normal Not Available [address] [place], [address] 01/13/2024 19:27:48 01/13/20 24 01/13/2024 COMPR EHENS FRANKIE METAB OLIC PANEL estimated GFR 89.47 mL/min /1.73m 2 Not Available [address] [place], [address] 01/13/2024 19:27:48 01/13/20 24 01/13/2024 COMPR EHENS FRANKIE METAB OLIC PANEL total protein 6.9 g/dL 6.4-8. 2 normal Not Available [address] [place], [address] 01/13/2024 19:27:48 01/13/20 24 01/13/2024 COMPR EHENS FRANKIE METAB OLIC PANEL albumin 3.4 g/dL 3.4-5. 0 normal Not Available [address] [place], [address] 01/13/2024 19:27:48 01/13/20 24 01/13/2024 COMPR EHENS FRANKIE METAB OLIC PANEL bilirubin, total 0.81 mg/dL 0.2-1. 0 normal Not Available [address] [place], [address] 01/13/2024 19:27:48 01/13/20 24 01/13/2024 COMPR EHENS FRANKIE METAB OLIC PANEL alk phos 54 U/L 46-116 normal Not Available [address] [place], [address] 01/13/2024 19:27:48 01/13/20 24 01/13/2024 COMPR EHENS FRANKIE METAB OLIC PANEL sodium 141 mmol/ L 136-14 5 normal Not Available [address] [place], [address] 01/13/2024 19:27:48 01/13/20 24 01/13/2024 COMPR EHENS FRANKIE METAB OLIC PANEL potassium 3.9 mmol/ L 3.5-5. 1 normal Not Available [address] [place], [address] 01/13/2024 19:27:48 01/13/20 24 01/13/2024 COMPR EHENS FRANKIE METAB OLIC PANEL chloride 106 mmol/ L 98-107 normal Not Available [address] [place], [address] 01/13/2024 19:27:48 01/13/20 24 01/13/2024 COMPR EHENS FRANKIE METAB OLIC PANEL CO2 28.6 mmol/ L 21.0-3 2.0 normal Not Available [address] [place], [address] 01/13/2024 19:27:48 01/13/20 24 01/13/2024 COMPR EHENS FRANKIE METAB OLIC PANEL anion gap 6.4 mmol/ L 3-11 normal Not Available [address] [place], [address] 01/13/2024 19:27:48 01/13/20 24 01/13/2024 COMPR EHENS FRANKIE METAB OLIC PANEL AST 30 U/L 15-37 normal Not Available [address] [place], [address] 01/13/2024 19:27:48 01/13/20 24 01/13/2024 COMPR EHENS FRANKIE METAB OLIC PANEL ALT 41 U/L 16-63 normal Not Available [address] [place], [address] 01/13/2024 19:27:48 01/13/20 24 01/13/2024 MAGNE SIUM magnesium 1.7 mg/dL 1.8-2. 4 low Not Available [address] [place], [address] 01/13/2024 19:27:48 01/13/20 24 01/13/2024 TROPO BAM I troponin I < 50 NG/L < or =60 Not Available [address] [place], [address] 01/13/2024 19:31:48 01/13/2001/13/2024 TROPO BAM I troponin I < 50 NG/L < or =60 Not Available [address] [place], [address] 01/13/2024 21:41:40 01/15/2001/15/2024 BASIC METAB OLIC PANEL calcium 8.3 mg/dL 8.5-10 .1 low Not Available [address] [place], [address] 01/15/2024 07:16:10 01/15/2001/15/2024 BASIC METAB OLIC PANEL glucose 125 mg/dL 74-106 high Not Available [address] [place], [address] 01/15/2024 07:16:10 01/15/20 24 01/15/2024 BASIC METAB OLIC PANEL BUN 15 mg/dL 7-18 normal Not Available [address] [place], [address] 01/15/2024 07:16:10 01/15/20 24 01/15/2024 BASIC METAB OLIC PANEL creatinine 0.7 mg/dL 0.70-1 .30 normal Not Available [address] [place], [address] 01/15/2024 07:16:10 01/15/20 24 01/15/2024 BASIC METAB OLIC PANEL estimated GFR 93.15 mL/min /1.73m 2 Not Available [address] [place], [address] 01/15/2024 07:16:10 01/15/20 24 01/15/2024 BASIC METAB OLIC PANEL sodium 139 mmol/ L 136-14 5 normal Not Available [address] [place], [address] 01/15/2024 07:16:10 01/15/20 24 01/15/2024 BASIC METAB OLIC PANEL potassium 3.6 mmol/ L 3.5-5. 1 normal Not Available [address] [place], [address] 01/15/2024 07:16:10 01/15/20 24 01/15/2024 BASIC METAB OLIC PANEL chloride 105 mmol/ L 98-107 normal Not Available [address] [place], [address] 01/15/2024 07:16:10 01/15/20 24 01/15/2024 BASIC METAB OLIC PANEL CO2 24.4 mmol/ L 21.0-3 2.0 normal Not Available [address] [place], [address] 01/15/2024 07:16:10 01/15/20 24 01/15/2024 BASIC METAB OLIC PANEL anion gap 9.6 mmol/ L 3-11 normal Not Available [address] [place], [address] 01/15/2024 07:16:10 01/15/20 24 01/15/2024 MAGNE SIUM magnesium 1.5 mg/dL 1.8-2. 4 low Not Available [address] [place], [address] 01/15/2024 07:16:11 12/15/19 24 12/15/2023 ultra sound imagi ng repor t Patien t Name: Zafar Celeste N Unit #: [id number] Loc: DI Orderi ng Provid er: Lorne Ac DNP Accoun t #: [id number] Status : REG CLI Primar y Care Provid er: Betty Chavarria M.D. Date of Exam: Sex: M Admiss ion Date: : 1944 Age: 78 Exam(s ) US RENAL EXAM: US RENAL CLINIC AL HISTOR Y: monito ring renal mass/c yst, BPH LOC URINE OBS/WU TS. TECHNI QUE: Mast scale, color and spectr al Dopple r were used. COMPAR ADWOA: CT CT RENAL COLIC WO from 2021 US US RENAL from 2022 FINDIN GS: Right kidney : 13.1cm Echoge nicity : Normal Hydron ephros is: No. Cyst or mass: 3.7 by 3.1 x 3.2 cm cyst upper pole. No suspic ious mass. Nephro lithia sis: No Left kidney : 12.1cm Echoge nicity : Normal Hydron ephros is: No Cyst or mass: 1 centim eters cyst pole. Nephro lithia sis: No Bladde r:Not well disten ded, not well evalua bart. Ureter s extra visual ized. Prevoi d vol:41 cc Postvo id vol:3 cc Prosta te volume 83 cc, enlarg ed. IMPRES LASHANDA: Stable bilate ral renal cysts. No eviden ce of hydron ephros is. DATA REPOSI TORY: Michael d By: Lorne Ac ey DNP CC: ------ ------ ------ ------ ------ ------ ------ ------ ------ ------ ------ ------ - Dictat ed By: Nereyda Ricardo 1457 1457 Transc ribed By: Madiha Lemus 1457 This is privil eged, confid ential inform ation intend ed only for the provid er named. Any use or distri bution by any person other than this provid er is strict ly prohib ited. If you receiv e this report in error, please notify us immedi ately at and return the origin al report to us at the addres s above. Thank- you. elizabeth [address] [place], [address] 12/15/2023 15:12:19 01/13/2001/13/2024 vrad repor t Patien t Name: Zafar Celeste Unit #: [id number] Loc: ER Orderi ng [facility] er: Flavio t #: [id number] Status : REG ER Primar y Care Provid er: Betty Chavarria M.D. Date of Exam: Sex: M : 1944 Age: 78 Exam(s ) PROCED URE INFORM ATION: Exam: CT Head Withou t Contra st Exam date and time: 024 7:45 PM Age: 78 years old Clinic al indica tion: Injury or trauma ; Fall; Blunt trauma (contu sions or hemato mas) TECHNI QUE: Imagin g protoc ol: Comput ed tomogr aphy of the head withou t contra st. COMPAR ADWOA: MR CERVIC AL SPINE WO 021 2:03 PM FINDIN GS: Brain: Cerebr al volume loss noted. Scatte red areas of decrea sed attenu ation in the deep perive ntricu lar white matter consis tent with small vessel ischem ic change . No eviden ce for acute intrac ranial hemorr fanta. Cerebr al ventri cles: No ventri culome kerry. Parana coleman sinuse s: Mild-t o-mode rate right mucope rioste al maxill matheus sinus thicke amita with mild spheno id involv ement, right fronta l involv ement and modera te to severe involv ement of the ethmoi d air cells. Mastoi d air cells: Visual ized mastoi d air cells are well aerate d. Bones: See Paran yogi sinuse s findin g. Soft tissue s: Unrema rkable . IMPRES LASHANDA: Senesc ent change s noted. No acute intrac ranial abnorm ality. ====== ====== ====== ====== = PROCED URE INFORM ATION: Exam: CT Cervic al Spine Withou t Contra st Exam date and time: 024 7:45 PM Age: 78 years old Clinic al indica tion: Injury or trauma ; Fall; Blunt trauma (contu sions or hemato mas) TECHNI QUE: Imagin g protoc ol: Comput ed tomogr aphy of the cervic al spine withou t contra st. COMPAR ADWOA: MR CERVIC AL SPINE WO 021 2:03 PM FINDIN GS: Bones: The patien t is status post cervic al spine fusion C4-T1. Verteb ral body height appear s well preser ruy. There is no eviden ce for fractu re. Teeth: The patien t is edentu lous. Lungs: Lung apices are normal . Thyroi d: Left thyroi d calcif icatio n. Soft tissue s: Unrema rkable . IMPRES LASHANDA: No eviden ce for acute posttr aumati c abnorm ality. Postsu rgical fusion change s as noted. Dictat ed and Patria pa d by: Dayami gamez MD. Orderi ng:Marija rowe MD Access ion#=[id number] Orderedgardo d By: CC: ------ ------ ------ ------ ------ ------ ------ ------ ------ ------ ------ ------ ---- Dictat ed By: Report s vrad 1944 Transc ribed By: Di Merge 1944 This is privil eged, confid ential inform ation intend ed only for the provid er named. Any use or distri bution by any person other than this provid er is strict ly prohib ited. If you receiv e this report in error, please notify us immedi ately at [phone] and return the origin al report to us at the addres s above. Thank- you. elizabeth [facility] [address] [place], [address] 01/15/2024 00:08:36 01/13/20 24 01/13/2024 vrad repor t Patien t Name: Zafar Celeste Unit #: [id number] Loc: ER Orderi ng Provid er: Flavio t #: [id number] Status : REG ER Primar y Care Provid er: Betty Chavarria M.D. Date of Exam: Sex: M : 1944 Age: 78 Exam(s ) PROCED URE INFORM ATION: Exam: CT Thorac ic Spine Withou t Contra st Exam date and time: 7:55 PM Age: 78 years old Clinic al indica tion: Injury or trauma ; Fall; Blunt trauma (contu sions or hemato mas); Prior surger y; Surger y date: 6+ months ; Surger y type: Lumbar fusion TECHNI QUE: Imagin g protoc ol: Comput ed tomogr aphy of the thorac ic spine withou t contra st. COMPAR ADWOA: CT HEAD CERVIC AL SPINE WO 7:45 PM FINDIN GS: Bones/ joints : Status post lower cervic al upper thorac ic fusion up to T2. There is calcif icatio n of the anteri or spinal longit udinal ligame nt. There is a fractu re throug h the anteri or inferi or aspect of T4. There is no loss of verteb ral body height . The fractu re includ es the ossifi ed spinal longit udinal ligame nt anteri luisa. No retrop ulsion or stenos is. Soft tissue s: Unrema rkable . Vascul ature: Mild athero sclero tic change presen t in the vascul ature. Gallbl adder and biliar y ducts: Gallst ones. Other findin gs: Respir atory motion noted. IMPRES LASHANDA: Nondis placed anteri or inferi or fractu re of T4. ====== ====== ====== ====== = PROCED URE INFORM ATION: Exam: CT Lumbar Spine Withou t Contra st Exam date and time: 7:55 PM Age: 78 years old Clinic al indica tion: Injury or trauma ; Fall; Blunt trauma (contu sions or hemato mas); Prior surger y; Surger y date: 6+ months ; Surger y type: Lumbar fusion TECHNI QUE: Imagin g protoc ol: Comput ed tomogr aphy of the lumbar spine withou t contra st. COMPAR ADWOA: MR lumbar spine wo 019 3:34 PM FINDIN GS: Bones/ joints : Status post lumbar fusion L3-L5. Verteb ral body height is well preser ruy. No fractu re. Soft tissue s: Unrema rkable . IMPRES LASHANDA: Lower lumbar fusion . No eviden ce for fractu re. I discus sed case findin gs with Luzma Fine 024 9:21 PM EDT. Dictat ed and Authen ticate d by: Dayami gamez MD. Orderdaisy ng:Marija rowe MD Access ion#=[id number] Orderedgardo d By: CC: ------ ------ ------ ------ ------ ------ ------ ------ ------ ------ ------ ------ ---- Dictat ed By: Report s vrad 1954 Transc ribed By: Di Merge 1954 This is privil eged, confid ential inform ation intend ed only for the provid er named. Any use or distri bution by any person other than this provid er is strict ly prohib ited. If you receiv e this report in error, please notify us immedi niccily at [phone] and return the origin al report to us at the addres s above. Thank- you. elizabeth [facility] [address] [place], [address] 01/15/2024 00:08:36 01/14/20 24 01/14/2024 CT imagi ng repor t Patilulu t Name: Zafar Celeste Unit #: [id number] Loc: MS Agueda sharma Provid er: Luzma Fine M.D. Accoun t #: [id number] Status : ADM KIRSTIE Primar y Care Provid er: Betty Chavarria M.D. Date of Exam: Sex: M : 1944 Age: 78 Exam(s ) a CT:CT head cervic al spine wo Exam(s ) CT HEAD CERVIC AL SPINE WO EXAM: CT HEAD CERVIC AL SPINE WO CLINIC AL HISTOR Y: fall,p ain. TECHNI QUE: Imagin g Protoc ol: Axial comput ed tomogr aphy images with moss l and sagitt al reform atted images were create d and review ed COMPAR ADWOA: No exams were availa ble for compar adwoa FINDIN GS: BRAIN: There are no skull fractu res. There is circum ferent ial mucosa l thicke amita in the maxill matheus sinuse s, right more so than left. No associ ated fluid levels . There is also mucosa l thicke amita in the spheno id sinuse s and right fronta l sinus as well as within ethmoi artemio air cells bilate rally. Mastoi d air cells are clear with no effusi ons. There is no eviden ce of intrac ranial hemorr fanta, mass effect , or shift of midlin e struct ures. There are no extra- axial fluid collec tions. The ventri cles are not enlarg ed or shifte d and there is no blood within the ventri cular system nor within the basal cister ns. There is symmet rical involu tional change consis tent with this patien t's advanc ed age. CERVIC AL SPINE: There is powder line repairer ior fusion hardwa re C4 down to T2 as well as bilate ral bone graft at these levels . There is no eviden ce of acute fractu re or signif icant listhe sis. There is multil evel facet joint fusion also eviden t. There is no signif icant facet joint malali gnment . No signif icant osseou s lesion s eviden t. IMPRES LASHANDA: No acute intrac ranial findin gs on this noninf used CT scan of the brain. No eviden ce of acute cervic al spine fractu re, malali gnment , nor acute compro mise of the cervic al spinal canal. Multil evel fusion of the cervic al spine noted C4 throug h T2. RADIAT ION DOSE DELIVE RED: Total DLP DATA REPOSI TORY: All CT scans at this facili ty are submit bart to the Nation al Radiol ogy Data Regist ry (NRDR) Dose Index Regist ry (DIR) with the [place] [employer] Radiol ogy (ACR). RADIAT ION OPTIMI ZATION : All CT scans at this facili ty use at least one of these dose optimi zation techni ques: automa bart exposu re contro l; mA and/or kV adjust ment per patien t size (inclu anjana target ed exams where dose is matche d to clinic al indica tion); or iterat frankie recons tructi on. 022: Total DLP = 0.00 mGy-cm Ordere d By: Luzma Fine M.D. CC: ------ ------ ------ ------ ------ ------ ------ ------ ------ ------ ------ ------ ---- Dictat ed By: Brian Rothman M.D. 936 Transc ribed By: Stephan SNIDER,Nitin romero 936 This is privil eged, confid ential inform ation intend ed only for the provid er named. Any use or distri bution by any person other than this provid er is strict ly prohib ited. If you receiv e this report in error, please notify us immedi niccily at [phone] and return the origin al report to us at the addres s above. Thank- you. elizabeth [facility] [address] [place], [address] 01/15/2024 00:08:37 01/14/2001/14/2024 CT imagi ng repor t Patien t Name: Zafar Celeste Unit #: [id number] Loc: MS Orderi ng Provid er: Luzma Fine M.D. Accoun t #: [id number] Status : ADM KIRSTIE Primar y Care Provid er: Betty Chavarria M.D. Date of Exam: Sex: M : 1944 Age: 78 Exam(s ) a CT:CT thorac ic lumbar spine wo Exam(s ) CT THORAC IC LUMBAR SPINE WO EXAM: CT THORAC IC LUMBAR SPINE WO CLINIC AL HISTOR Y: pain s/p fall. TECHNI QUE: Imagin g Protoc ol: Axial comput ed tomogr aphy images with moss l and sagitt al reform atted images were create d and review ed. CONTRA ST MATERI AL: Intrav enous: None COMPAR ADWOA: CT CT HEAD CERVIC AL SPINE WO from 2023 FINDIN GS: THORAC IC SPINAL COLUMN : Bones: Fusion hardwa re noted from C4 throug h T2. Hardwa re appear s intact and there are no fractu res at these fused levels . Howeve r, there is an obliqu e fractu re of the anteri or inferi or aspect of the T4 verteb ral body eviden t withou t displa cement nor loss of height of this verteb ral body and this fractu re also extend s throug h the ossifi ed anteri or longit udinal ligame nt at this level as well as extend ing into the david superi or right- side of T5 verteb ral body. No displa cement . No listhe sis.. There is no retrop ulsed fragme nt at this level. Soft tissue s: The powder line repairer ior wall of the upper esopha winston appear s thicke maci, as best seen on the sagitt al recons tructe d images . LUMBOS ACRAL SPINAL COLUMN : There is eviden ce of fusion L3 throug h L5 with bilate ral intrap edicul ar screws and bone graft materi al at these levels . There is no hardwa re fractu re. Kin ctomie s noted at these levels . Mild david listhe sis L4 upon L5 which is most probab ly chroni c and not associ ated with fractu res nor pars defect s. Disc spaces exhibi t normal height in the lumbar spine. There is multil evel facet joint fusion at the fused levels . There are degene rative change s at the L5-S1 facet joints withou t facet joint malali gnment . Sacroi liac joints appear age-ap propri ate Soft tissue s: Incide ntally noted is a small 2 millim eter calcul us in the urinar y bladde r. Visual ized pelvic ureter s are not dilate d. IMPRES LASHANDA: Nondis placed fractu re line throug h anteri or aspect of T4 and upper T5, also involv ing the ossifi ed anteri or osseou s ligame nt at this level. Howeve r, there is no eviden ce of displa cement nor listhe sis and no acute compro mise of the osseou s spinal canal. Eviden ce of fusion C4 throug h T2 and L3 throug h L5, withou t acute findin gs at these fused levels . First read by Prema Ghosh diolog y. RADIAT ION DOSE DELIVE RED: Total DLP DATA REPOSI TORY: All CT scans at this facili ty are submit bart to the [facility] al Radiol ogy Data Regist ry (NRDR) Dose Index Regist ry (DIR) with the [place] [employer] Radiol ogy (ACR). RADIAT ION OPTIMI ZATION : All CT scans at this facili ty use at least one of these dose optimi zation techni ques: automa bart exposu re contro l; mA and/or kV adjust ment per patien t size (inclu anjana target ed exams where dose is matche d to clinic al indica tion); or iterat frankie recons tructi on. [phone]- [phone]: Total DLP = 0.00 mGy-cm Ordere d By: Luzma Fine M.D. CC: ------ ------ ------ ------ ------ ------ ------ ------ ------ ------ ------ ------ ---- Dictat ed By: Brian Rothman M.D. [id number] [id number] Transc ribed By: Stephan SNIDER,Nitin romero 948 This is privil eged, confid ential inform ation intend ed only for the provid er named. Any use or distri bution by any person other than this provid er is strict ly prohib ited. If you receiv e this report in error, please notify us immkishan renee at and return the origin al report to us at the addres s above. Thank- you. elizabeth [facility] [address], [place], [address] 01/15/2024 00:08:37 Result Notes None recorded. Problems Name Status Onset Date Resolution Date Notes Provider Name and Address Organization Details Recorded Time Diverticula of intestine Active 2005 Problem Code: K57.90; Problem Code Type: ICD-10; MICHAEL JOHNSTON, [facility] 4 08:35:37 Hyperlipidemi a Active 200109/13/2018 - Comments only - Faizan Serrano - - Well managed on atorvastatin. - Recent lipid panel revealed total cholesterol of 198, triglycerides of 124, HDL of 53, and LDL of 118. - No changes made to medication today. - Continue current medical management with atorvastatin. - We will continue to monitor. Problem Code: E78.5; Problem Code Type: ICD-10; MD [address]ar[address], [place], [address] , [facility] 4 22:46:23 Testicular hypofunction Active 2001 Problem Code: E29.1; Problem Code Type: ICD-10; MD [address], [place], [address] , [facility] 4 22:43:01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
--- OUTSIDE RECORDS SUMMARY | 2024-01-20 01:07 | XMS_ITS | Encounter Summary ---
Author Organization [facility] Address [address] [place] [address] Care Team Providers Care Blacktop Paver Operator Name Role Phone Garcia Gonzales MD Primary Care Provider Encounter Details Date Type Department Care Team (Late st Contact Info) Description 01/23/2005 Results Only [facility] [address] [place] [address] Jasper Shelley, DO [address] [facility] [address] [place], [place] [id number] Social History Tobacco Use Types Packs/Day Years [...] Date/Time Associated Diagnosis Comments SURGICAL PATHOLOGY Routine 01/23/2005 0:00 EDT documented in this encounter Results * SURGICAL PATHOLOGY (01/23/2005 0:00 EDT) Pathology Report: SURGICAL PATHOLOGY REPORT Reports generated via electronic interface contain original data; however they are lacking the format of the original report. Caution should be taken when reading/interpreti ng unformatted reports. Name: ? SINDY SAM Ana Maria ? Accession #: ? [id number] ? : ? 1945 (Age: 59) ??M ? Collect Date: ? 01/23/2005 ? Location: ? [facility] ? Receive Date: ? 01/23/2005 ? Provider: JASPER SHELLEY DO Copy to: JUAN ANTONIO THOMPSON MD ? Final Pathologic Diagnosis: A. ?Colon, 20 cm, polyp, biopsy: 1. ?Hyperplastic polyp. 2. ?No adenomatous mucosa identified. B. ?Rectum, polyp, biopsy: 1. ?Colorectal mucosa with specific pathologic features. 2. ?No adenomatous mucosa identified. ??See comment. Comment: ? Deeper sections have been examined. ??(Dr. Romero)/[facility] Document reviewed and electronically signed by: EDITH ROMERO MD Report ??Date: 01/27/2005 16:03 By the signature above, the attending physician certifies that he/she has personally conducted a gross and/or microscopic examination of the described specimens and rendered or confirmed the above diagnosis. Specimen(s) Received: A. ?Polyp @ 20 cm B. ?Rectal polyp ?? Clinical History: ? Heme positive stool Gross Description: ? Received in Hollande' s fixative labeled Hescock and polyp 20 cm are two reardon-pink soft tissue fragments measuring 0.2 x 0.2 x 0.2 cm and 0.5 x 0.2 x 0.2 cm. ??The specimen is entirely submitted as (A). Received in Hollande' s fixative labeled Hescock and rectal polyp is a reardon-pink 0.2 x 0.2 x 0.2 cm soft tissue fragment. ??The specimen is entirely submitted as (B). ??(Young Vargas)/[facility] End of Report [facility] 01/23/2005 01/23/2005 15: 22 EDT Jasper Shelley DO PATHOLOGY ORDER [facility] [address] [place] [address] documented in this encounter Visit Diagnoses Not on filedocumented in this encounter Care Teams Blacktop Paver Operator Relationship Specialty Start Date End Date Garcia Gonzales MD [address] [place], [place] [id number] PCP - General 09/03/09 documented as of this encounter
--- OUTSIDE RECORDS SUMMARY | 2024-01-20 01:07 | XMS_ITS | Encounter Summary ---
Author Organization [facility] Address [address] [place] [address] Care Team Providers Care Archives Specialist Name Role Phone Garcia Gonzales MD Primary Care Provider [phone] Encounter Details Date Type Department Care Team (Late st Contact Info) Description 09/10/2009 12:47 EDT - 09/10/2009 23:59 EDT Hospital Encounter [facility] Ophthalmology - [address] [address] Shravan Narayanan MD [address] [facility], [address] [place] [phone] Discharge Disposition: Home or Self Care Social History Tobacco Use Types Packs/Day Years Used Date Smoking Tobacco: Never Assessed Sex and Gender Information Value Date Recorded Sex Assigned at Not on file Gender Identity Male 06/01/2019 13:40 EST Sexual Orientation Not on file documented as of this encounter Discharge Disposition Disposition Code Departure Means Destination Home or Self Detention documented in this encounter Procedure Notes * Shravan Narayanan MD - 09/10/2009 0000 EDT DIVISION OF OPHTHALMOLOGY [facility] PROCEDURE REPORT SERVICE DATE: 09/10/2009 COLOR FUNDUS PHOTOGRAPHS INDICATIONS: Pigmentary retinopathy. FINDINGS: Juxtafoveal pigmentary changes, right greater than left. ASSESSMENT: Rule out possible see a CNVM. PLAN: IVFA to evaluate leakage and perfusion. Unless otherwise noted, there were no complications, no blood loss, cultures obtained, specimens removed, or drains retained. Electronically Signed by Shravan Narayanan MD 09/16/2009 16:21 Shravan Narayanan MD Retina and Vitreous Service [address] [place] [address] - Shravan Narayanan MD - [facility] Job ID: SM Doc ID: [id number] Ext Doc ID: [id number] cc: documented in this encounter Consult Notes * Shravan Narayanan MD - 09/10/2009 0000 EDT DIVISION OF OPHTHALMOLOGY [facility] CONSULTATION - 09/10/2009 Hernandez [facility] [place] [address] Dear Hernandez: Your very nice patient, Mr Sam, was seen today in retinal consultation. As you know, he has some pigmentary changes in his macular region and you were concerned about the possibility of blood. Hehas been having some increasing changes on his Amsler grid as well. On careful ophthalmoscopy with indirect scope and contact lens today, I note pigmentary changes abutting the fovea, right greater than left. He has either a small pigment epithelial detachment or an oblong drusen superotemporal to the fovea in the right eye. No significant drusenous change was noted in the left eye. Cup-to-disc ratios were about 0.45 with healthy rim tissue, 360 degrees enclosed. Enclosed is a fluorescein angiogram (indications SMD unspecific). The findings were those of windowdefects, juxtafoveal, right greater than left. There is no leakage consistent with either active SALESPERSON FLOOR COVERINGS or with choroidal neovascularization. Assessment: 1. Pigmentary changes, juxtafoveal. 2. Tiny foveal pigment epithelial detachment, right. 3. No leakage consistent with CNVM or active SALESPERSON FLOOR COVERINGS. Comment: Hernandez, this is an interesting patient. He does not have a lot of drusen and therefore I am thinking that probably this is not classic macular degeneration. He says that he saw you first aboutsix years ago and really did not see an tooth inspector prior to that. I wonder if the patient has had central serous retinopathy in the past. The little pigment epithelial detachment in the right eye is potentially consistent with that. I have suggested the patient see you again in six weeks and see me again in 3 months. He will use his Amsler grid daily and should he notice any deterioration of the grid he will call one of us immediately. I do not think any therapy is indicated right now. Incidentally, I could not convince myselfthat I saw any hemorrhage in the right eye today. Thanks for letting me participate in the care of this good fellow. Sincerely, Electronically Signed by Shravan Narayanan MD 09/17/2009 15:36 Shravan Narayanan MD Retina and Vitreous Service [address] [place] [address] - Shravan Narayanan MD - [facility] Job ID: SM Doc ID: [id number] Ext Doc ID: [id number] cc: Deena Kincaid OD documented in this encounter Plan of Treatment Not on file documented as of this encounter Visit Diagnoses Not on filedocumented in this encounter Care Teams Archives Specialist Relationship Specialty Start Date End Date Garcia Gonzales MD [address] [place] [address] PCP - General 09/03/09 documented as of this encounter
== END ==
PROVIDERS: PCP Family Medicine; Visit Provider Family Medicine
DX: R55 Syncope and collapse (principal)
CPT/HCPCS: 93306

== ENCOUNTER 2024-02-08 21:52 | Outpatient (REF) | payer MEDICARE, OTHER, SELFPAY ==
--- OUTSIDE RECORDS SUMMARY | 2024-02-08 21:54 | XMS_ITS | Referral Summary ---
Author Organization [facility] Address [address] [place] [address] Care Team Providers Care Electric Freight Car Operator Name Role Phone Garcia Gonzales MD Primary Care Provider [phone] Allergies Active Allergy Reactions Criticality Noted Date [...] on file Medical Devices Implanted Type Area Ergonomic Specialist Device Identifier Shelf Expiration Date Model / Serial / Lot Screw Spinal P/Ax Solid Andres 7x60mm Ft Matrix [id number] - S0 - [id number] Implanted:Qty : 2 on 05/31/2019 by Caleb Ahumada MD at [facility] Screw Implant [employer] 04.639.76 0 / 0 / Screw Spinal P/Ax Solid Andres 8x60mm Ft Matrix [id number] - S0 - [id number] Implanted:Qty : 2 on 05/31/2019 by Caleb Ahumada MD at [facility] Screw Implant DEPU[employer] 04.639.86 0 / 0 / Screw Spinal P/Ax Solid Ti 5.5mm Matrix [id number] - S0 - [id number] Implanted:Qty : 6 on 05/31/2019 by Caleb Ahumada MD at [facility] Screw Implant [employer] 04.632.00 1 / 0 / Screw Spinal P/Ax Solid Ti 8x55mm Ft Matrix [id number] - S0 - [id number] Implanted:Qty : 1 on 05/31/2019 by Caleb Ahumada MD at [facility] Screw Implant [employer] 04.639.85 5 / 0 / Screw Spinal P/Ax Solid Ti 7x50mm Ft Matrix [id number] - S0 - [id number] Implanted:Qty : 1 on 05/31/2019 by Caleb Ahumada MD at [facility] Screw Implant [employer] 04.639.75 0 / 0 / End Cap Spinal Deformity 5.5mm Matrix [id number] - S0 - [id number] Implanted:Qty : 6 on 05/31/2019 by Caleb Ahumada MD at [facility] Spinal Implant [employer] .632.00 0 / 0 / Yosef Spinal Postr Cerv Ti Prebnt 5.5x65mm Matrix [id number] - S0 - [id number] Implanted:Qty : 1 on 05/31/2019 by Caleb Ahumada MD at [facility] Spinal Implant [employer] .636.06 5 / 0 / Yosef Spinal Lumbr Ti Prebnt 5.5x70mm Matrix [id number] - S0 - [id number] Implanted:Qty : 1 on 05/31/2019 by Caleb Ahumada MD at [facility] Spinal Implant N/A: Back [employer] 636.07 0 / 0 / Advance Directives For more information, please contact: [phone] Documents on File Type Date Recorded Patient Behavioral Medical Director Expl anation COLST/MOLST 06/09/2019 9:27 D NR/COLST [...] the discussion? Not Discusse d Care Teams Electric Freight Car Operator Relationship Specialty Start Date End Date Garcia Gonzales MD [address] [place], [place] [id number] [facility] - General 09/03/09
--- OUTSIDE RECORDS SUMMARY | 2024-02-08 21:54 | XMS_ITS | Clinical Summary ---
Author Organization [facility] Address [address] [place] [address] Care Team Providers Care Office Associate Name Role Phone Garcia Gonzales MD Primary Care Provider [phone] Allergies Active Allergy Reactions Criticality Noted Date [...] REMOVAL WITH IMPLANT 06/28/2014 - 06/27/2015 Bilateral MN ARTHRODESIS POSTERIOR/PSTLAT TQ 1NTRSPC LUMBAR 05/31/2019 Spine Lumbar/N/A Spine Lumbar/N/A Spine Lumbar/N/A Spine Lumbar/N/A Spine Lumbar/N/A lumbar laminectomy L1-2 through L4-5, L3-5 instrumented fusion with the use or possible use of allograft performed by Caleb Ahumada MD at [facility] [place] Medical devices from this surgery are in the Medical Devices section. MN ARTHRODESIS PST/PSTLAT TQ 1NTRSPC EA ADDL NTRSPC 05/31/2019 Spine Lumbar/N/A Spine Lumbar/N/A Spine Lumbar/N/A Spine Lumbar/N/A Spine Lumbar/N/A . performed by Caleb Ahumada MD at [facility] [place] Medical devices from this surgery are in the Medical Devices section. MN LAMINECTOMY W/O FFD > 2 VERT SEG LUMBAR 05/31/2019 Spine Lumbar/N/A Spine Lumbar/N/A Spine Lumbar/N/A Spine Lumbar/N/A Spine Lumbar/N/A . performed by Caleb Ahumada MD at [facility] [place] Medical devices from this surgery are in the Medical Devices section. MN POSTERIOR SEGMENTAL INSTRUMENTATION 3-6 VRT SEG 05/31/2019 Spine Lumbar/N/A Spine Lumbar/N/A Spine Lumbar/N/A Spine Lumbar/N/A Spine Lumbar/N/A . performed by Caleb Ahumada MD at [facility] [place] Medical devices from this surgery are in the Medical Devices section. MN ALLOGRAFT FOR SPINE SURGERY ONLY STRUCTURAL 05/31/2019 Spine Lumbar/N/A Spine Lumbar/N/A Spine Lumbar/N/A Spine Lumbar/N/A Spine Lumbar/N/A . performed by Caleb Ahumada MD at [facility] [place] Medical devices from this surgery are in the Medical Devices section. Medical History Medical History Date Comments Spinal stenosis Hyperlipidemia A-fib ([facility]) dx in 2014, cont rolled well Asthma [...] season) 2023 Medical Devices Implanted Type Area Aircraft Tool Maker Device Identifier Shelf Expiration Date Model / Serial / Lot Screw Spinal P/Ax Solid Andres 7x60mm Ft Matrix [id number] - S0 - [id number] Implanted:Qty : 2 on 05/31/2019 by Caleb Ahumada MD at [facility] Screw Implant DEPU[employer] .76 0 / 0 / Screw Spinal P/Ax Solid Andres 8x60mm Ft Matrix [id number] - S0 - [id number] Implanted:Qty : 2 on 05/31/2019 by Caleb Ahumada MD at [facility] Screw Implant DEPUY SYNTHES [employer] .86 0 / 0 / Screw Spinal P/Ax Solid Ti 5.5mm Matrix [id number] - S0 - [id number] Implanted:Qty : 6 on 05/31/2019 by Caleb Ahumada MD at [facility] Screw Implant DEPU[employer] SY[employer] 632.00 1 / 0 / Screw Spinal P/Ax Solid Ti 8x55mm Ft Matrix [id number] - S0 - [id number] Implanted:Qty : 1 on 05/31/2019 by Caleb Ahumada MD at [facility] Screw Implant DE[employer] 639.85 5 / 0 / Screw Spinal P/Ax Solid Ti 7x50mm Ft Matrix [id number] - S0 - [id number] Implanted:Qty : 1 on 05/31/2019 by Caleb Ahumada MD at [facility] Screw Implant DEPU[employer] 639.75 0 / 0 / End Cap Spinal Deformity 5.5mm Matrix [id number] - S0 - [id number] Implanted:Qty : 6 on 05/31/2019 by Caleb Ahumada MD at [facility] Spinal Implant [employer] 632.00 0 / 0 / Yosef Spinal Postr Cerv Ti Prebnt 5.5x65mm Matrix [id number] - S0 - [id number] Implanted:Qty : 1 on 05/31/2019 by Caleb Ahumada MD at [facility] Spinal Implant [employer] 636.06 5 / 0 / Yosef Spinal Lumbr Ti Prebnt 5.5x70mm Matrix [id number] - S0 - [id number] Implanted:Qty : 1 on 05/31/2019 by Caleb Ahumada MD at [facility] Spinal Implant N/A: Back [employer] 636.07 0 / 0 / Advance Directives For more information, please contact: [phone] Documents on File Type Date Recorded Patient Communications Department Chair Expl anation COLST/MOLST 06/09/2019 9:27 D NR/COLST [...] the discussion? Not Discusse d Care Teams Office Associate Relationship Specialty Start Date End Date Garcia Gonzales MD [address] [place] [address] PCP - General 09/03/09
--- OUTSIDE RECORDS SUMMARY | 2024-02-08 21:54 | XMS_ITS | Encounter Summary ---
Author Organization [facility] Address [address] [place] [address] Care Team Providers Care Seaming Machine Operator Name Role Phone Garcia Gonzales MD Primary Care Provider [phone] Reason for Visit * Reason Comments Neck Pain Encounter Details Date Type Department Care Team (Late st Contact Info) Description 11/05/2020 10:00 EDT Telemedicine [facility] Neurosurgery - [address] [address] Caleb Ahumada MD [address] [facility], [address] [place] [address] Cervical spondylosis with myelopathy and [...] Primary documented in this encounter Care Teams Seaming Machine Operator Relationship Specialty Start Date End Date Garcia Gonzales MD [address] [place] [address] PCP - General 09/03/09 documented as of this encounter
--- OUTSIDE RECORDS SUMMARY | 2024-02-08 21:54 | XMS_ITS | Encounter Summary ---
Author Organization [facility] Address [address] [place] [address] Care Team Providers Care Modeling Instructor Name Role Phone Garcia Gonzales MD Primary Care Provider [phone] Encounter Details Date Type Department Care Team (Late st Contact Info) Description 08/26/2021 Lab Requisition [facility] Pathology & Laboratory Medicine - [facility] [address] [place] [address] Marisol Florence, DO [address] [facility] [address] [place], [place] [phone] Encounter for other general examination Social History [...] explore management options, if applicable. 08/28/2021 18:36 [facility] Final Diagnosis A. COLON, CECUM, POLYP, BIOPSY: - Fragments of tubular adenoma. B. COLON, 80 CM, POLYP, BIOPSY: - Fragments of tubular adenoma. C. COLON, 70 CM, POLYP, BIOPSY: - Tubular adenoma. D. COLON, 60 CM, POLYP, BIOPSY: - Tubular adenoma. 08/28/2021 18:36 [facility] Attestation By the signature below, the attending physician certifies that they have 1) personally conducted a gross and/or microscopic examination of the described specimen(s), and/or personally interpreted the results of laboratory testing of the described specimen(s), and 2) personally rendered or confirmed the above diagnosis. 08/28/2021 18:36 [facility] at 1836 Clinical History History of polyps; tics/int heme 08/28/2021 18:36 [facility] Gross Description A. Received [...] DAVIN DENG(ASCP) 08/26/2021 19:41 08/28/2021 18:[address] [facility] Performing Lab [facility] 08/28/2021 18:[address] [facility] Scanned Images 08/28/2021 18:[address] [facility] Tissue ENTIRE COLON / Unknown 08/26/2021 9:48 EST 08/26/2021 16:28 EST Tissue specimen (specimen) COLON STRUCTURE / Unknown 08/26/2021 9:48 EST 08/26/2021 16:28 EST Tissue specimen (specimen) COLON STRUCTURE / Unknown 08/26/2021 9:48 EST 08/26/2021 16:28 EST Tissue specimen (specimen) COLON STRUCTURE / Unknown 08/26/2021 9:48 EST 08/26/2021 16:28 EST Marisol Florence DO PATHOLOGY ORDERABLES [facility] [address] [place] [address] documented in this encounter Visit Diagnoses Diagnosis Encounter for other general examination documented in this encounter Care Teams Modeling Instructor Relationship Specialty Start Date End Date Garcia Gonzales MD [address] [place] [address] PCP - General 09/03/09 documented as of this encounter
--- OUTSIDE RECORDS SUMMARY | 2024-02-08 21:54 | XMS_ITS | Encounter Summary ---
Author Organization [facility] Address [address] [place] [address] Care Team Providers Care Fire Hose Curer Name Role Phone Garcia Gonzales MD Primary Care Provider [phone] Reason for Visit * Reason Onset Date Comments Diagnostic Imaging Report 10/24/2020 MRI Appointment Related 10/24/2020 Encounter Details Date Type Department Care Team (Late st Contact Info) Description 10/24/2020 Telephone [facility] [address] [place], [place] [address] Caleb Ahumada MD [address] [facility], [address] [place] [address] Diagnostic Imaging Report (MRI 10/22/20 [...] Telephone Encounter - Connie Merritt - 10/24/2020 4789 EDT Patient calling to get the fur now that MRI was done 10/22/20 at [facility]. Please call. documented in this encounter Plan of Treatment Not on file documented as of this encounter Visit Diagnoses Not on filedocumented in this encounter Care Teams Fire Hose Curer Relationship Specialty Start Date End Date Garcia Gonzales MD [address] [place] [address] PCP - General 09/03/09 documented as of this encounter
--- OUTSIDE RECORDS SUMMARY | 2024-02-08 21:55 | XMS_ITS | Encounter Summary ---
Author Organization [facility] Address [address] [place] [address] Care Team Providers Care Lockstitch Front Maker Name Role Phone Garcia Gonzales MD Primary Care Provider [phone] Reason for Referral * Radiology Services (Routine) - Closed Specialty Diagnoses / Procedures Referred By Contac t Referred To Contact Diagnoses Lumbar stenosis with neurogenic claudication Procedures XR ENTIRE SPINE 2-3 VIEWS Caleb Ahumada MD [address] [place] [phone] Referral ID Status Reason Start Date Expiration Date Visits Re quested Visits Authorized [id number] Closed 06/27/2019 1 1 Encounter Details Date Type Department Care Team (Late st Contact Info) Description 06/27/2019 Orders Only [facility] Neurosurgery - [address] [id number] Caleb Ahumada MD [address] [place] [phone] Lumbar stenosis with neurogenic claudication (Primary [...] claudication documented in this encounter Care Teams Lockstitch Front Maker Relationship Specialty Start Date End Date Garcia Gonzales MD [address] [place] [address] PCP - General 09/03/09 documented as of this encounter
--- OUTSIDE RECORDS SUMMARY | 2024-02-08 21:55 | XMS_ITS | Encounter Summary ---
Author Organization [facility] Address [address] [place] [address] Care Team Providers Care Professional Soccer Player Name Role Phone Garcia Gonzales MD Primary Care Provider [phone] Reason for Visit * Reason Onset Date Comments Discuss Surgery 05/30/2019 Encounter Details Date Type Department Care Team (Late st Contact Info) Description 05/30/2019 Telephone [facility] - [address] [address] Caleb Ahumada MD [address] [place] [address], [address] [place] [address] Discuss Surgery Social History Tobacco Use Types Packs/Day Years Used Date Smoking Tobacco: Former Cigarettes 3 15 1 [phone] [phone] Smokeless Tobacco: Never Comments:quit 41 years ago [...] on filedocumented in this encounter Care Teams Professional Soccer Player Relationship Specialty Start Date End Date Garcia Gonzales MD [address] [place] [address] PCP - General 09/03/09 documented as of this encounter
--- OUTSIDE RECORDS SUMMARY | 2024-02-08 21:55 | XMS_ITS | Encounter Summary ---
Author Organization [facility] Address [address] [place] [address] Care Team Providers Care Director Data Analytics Name Role Phone Garcia Gonzales MD Primary Care Provider Reason for Visit * Reason Onset Date Comments Discuss Surgery 2019 Encounter Details Date Type Department Care Team (Late st Contact Info) Description [address] [facility] Neurosurgery - [facility] [place] [address] [place] [address] Brigette Moser, LAUREL Discuss Surgery Social History [...] on filedocumented in this encounter Care Teams Director Data Analytics Relationship Specialty Start Date End Date Garcia Gonzales MD [address] [place] [address] PCP - General 09/03/09 documented as of this encounter
--- OUTSIDE RECORDS SUMMARY | 2024-02-08 21:55 | XMS_ITS | Encounter Summary ---
Author Organization [facility] Address [address] [place] [id number] Care Team Providers Care Crutching Contractor Name Role Phone Garcia Gonzales MD Primary Care Provider [phone] Reason for Referral * Radiology Services (Routine) - Closed Specialty Diagnoses / Procedures Referred By Contac t Referred To Contact Diagnoses Lumbar stenosis with neurogenic claudication Procedures XR LUMBAR SPINE 4 OR MORE VIEWS Caleb Ahumada MD [address] [place] [phone] Referral ID Status Reason Start Date Expiration Date Visits Re quested Visits Authorized [id number] Closed 09/05/2019 1 1 Reason for Visit * Radiology Services (Routine) - Closed Specialty Diagnoses / Procedures Referred By Contac t Referred To Contact Diagnoses Lumbar stenosis with neurogenic claudication Procedures XR CERVICAL SPINE 6 OR MORE VIEWS XR CERVICAL SPINE 4-5 VIEWS Caleb Ahumada MD [address] [place] [phone] Referral ID Status Reason Start Date Expiration Date Visits Re quested Visits Authorized [id number] Closed 09/05/2019 1 1 Encounter Details Date Type Department Care Team (Latest Contact Info) Description 07/01/2020 13:31 EST - 07/01/2020 23:59 EST Hospital En[facility] [place] [address] Lumbar stenosis with neurogenic claudication Discharge Disposition: [...] claudication documented in this encounter Care Teams Crutching Contractor Relationship Specialty Start Date End Date Garcia Gonzales MD [address] [place] [address] PCP - General 09/03/09 documented as of this encounter
--- OUTSIDE RECORDS SUMMARY | 2024-02-08 21:55 | XMS_ITS | Encounter Summary ---
Author Organization [facility] Address [address] [place] [address] Care Team Providers Care Change Advisor Name Role Phone aGrcia Gonzales MD Primary Care Provider [phone] Reason for Referral * Radiology Services (Routine) - Closed Specialty Diagnoses / Procedures Referred By Contac t Referred To Contact Diagnoses Lumbar stenosis with neurogenic claudication Procedures XR LUMBAR SPINE 4 OR MORE VIEWS Caleb Ahumada MD [address] [place] [phone] Referral ID Status Reason Start Date Expiration Date Visits Re quested Visits Authorized [id number] Closed 09/05/2019 1 1 Reason for Visit * Reason Comments Back Pain LBP Encounter Details Date Type Department Care Team (Late st Contact Info) Description 09/05/2019 11:30 EDT Post-op Visit [facility] Neurosurgery - [address] [address] Caleb Ahumada MD [address] [place] [phone] Lumbar stenosis with neurogenic claudication (Primary [...] Hand still a bit weak - using robot designer strengthening devices as home. Balance [place]. Elected [...] claudication documented in this encounter Care Teams Change Advisor Relationship Specialty Start Date End Date Garcia Gonzales MD [address] [place] [address] PCP - General 09/03/09 documented as of this encounter
--- OUTSIDE RECORDS SUMMARY | 2024-02-08 21:55 | XMS_ITS | Encounter Summary ---
Author Organization [facility] Address [address] [place] [address] Care Team Providers Care Backbreaker Name Role Phone Garcia Gonzales MD Primary Care Provider [phone] Reason for Visit * Reason Onset Date Comments Appointment Related 06/27/2020 Encounter Details Date Type Department Care Team (Late st Contact Info) Description 06/27/2020 Telephone [facility] [address] [place], [place] [id number] Renea Petersen RN Appointment Related Social History [...] on filedocumented in this encounter Care Teams Backbreaker Relationship Specialty Start Date End Date Garcia Gonzales MD [address] [place] [address] PCP - General 09/03/09 documented as of this encounter
--- OUTSIDE RECORDS SUMMARY | 2024-02-08 21:55 | XMS_ITS | Encounter Summary ---
Author Organization [facility] Address [address] [place] [address] Care Team Providers Care Exit Booth Agent Name Role Phone Garcia Gonzales MD Primary Care Provider [phone] Reason for Referral * Follow Up (3 - 10 Business Days) - Receiving Office to Obtain Authorization Specialty Diagnoses / Procedures Referred By Contac t Referred To Contact General Internal Medicine Diagnoses Hyponatremia Martín Gayle MD [address] [place] [address] Garcia Gonzales MD [address] [place] [address] Referral ID Status Reason Start Date Expiration Date Visits Requested Visits Authorized [id number] Receiving Office to Obtain Authorization Continuity of Care 06/06/20 19 1 1 Question Answer Reason for Request: F/U Hyponatremia Scheduling Comments (optional ? describe specific scheduling needs if applicable): 7 days Expected Discharge Date (Inpatient Only): 06/06/2019 * Consult (Routine) - Closed Specialty Diagnoses / Procedures Referred By Contac t Referred To Contact Neurosurgery Diagnoses Neurogenic jamilahication Alicia Marroquin MD [address] [place] [address] Caleb Ahumada MD [address] [facility], [address] [place] [address] Referral ID Status Reason Start Date Expiration Date V isits Requested Visits Authorized [id number] Closed Specialty Services Required 06/04/2019 1 1 Question Answer Reason for Request: lumbar fusion 4 wks * Referral (Routine/Next Available) - New Request Specialty Diagnoses / Procedures Referred By Lucia garcia Referred To Contact Diagnoses Neurogenic claudication Alicia Marroquin MD [address] [place] [id number] [facility] & [address] [address] Referral ID Status Reason Start Date Expiration Date Visits Requested Visits Authorized [id number] New Request Specialty Services Required 06/04/2019 1 1 Question Answer I certify that this patient is under my care and that I, or another Medicare allowed practitioner (DO TYLOR, LAW) working with me, had a [id number]-[id number] encounter with this patient on this date: 06/04/2019 I further certify that the tunn-rt-mipk encounter was in whole or in part [...] stenosis, lumbar region with neurogenic claudication Procedures FL ARTHRODESIS POSTERIOR/POSTEROLATERAL LUMBAR FL SPINE FUSN,POST TECH,EA ADDNL SGMT FL LAMINECTOMY,>2 SGMT,LUMBAR FL POSTERIOR SEGMENTAL INSTRUMENTATION 3-6 VRT SEG FL ALLOGRAFT FOR SPINE SURGERY ONLY STRUCTURAL lumbar laminectomy L1-2 through L4-5, L3-5 instrumented fusion with the use or possible use of allograft . . . . Referral ID Status Reason Start Date Expiration Date Visits Re quested Visits Authorized [id number] 1 1 Encounter Details Date Type Department Care Team (Late st Contact Info) Description 05/31/2019 6:03 EST - 06/06/2019 10:42 EST Hospital Encounter [facility] Orthopedics Unit [address] [place] [address] Caleb Ahumada MD [address] [place] [address], [address] [place] [address] Neurogenic claudication (Primary Dx); Hyponatremia Discharge Disposition: Nursing Facility (Skilled) Social History Tobacco Use Types Packs/Day Years Used Date Smoking Tobacco: Former Cigarettes 3 15 1 [phone] - [phone] Smokeless Tobacco: Never Comments:quit 41 years ago [...] Post Op Visit with Caleb Ahumada MD [facility] Neurosurgery - [facility] (--) [address] [facility]3] [address] ALICIA MARROQUIN MD 06/03/2019 8:02 documented in [...] Gomez, PT - 06/06/2019 1042 EST [facility] Rehabilitation Therapy Acute Therapy [facility] Physical Therapy Discontinue/Discharge Note Date of Service: 06/06/2019 Mobility Precautions Activity: Activity as tolerated Spinal Precautions: Spine A Surgery/No Brace SUBJECTIVE: Other Subjective Statements: N/A OBJECTIVE: PatientProfile: Patient is a 74 y.o. male admitted on 05/31/2019 secondary to Spinal stenosis, lumbar region with neurogenic claudication [M48.062] Spinal stenosis of lumbar region with neurogenic claudication [M48.062] The patient lives at [address] [place] [address] Interventions Completed Today: Interventions Included: No interventions [...] at subacuterehab Short-Term Goals: na Long-Term Goals: Residential Goal Time Frame: 2 days to 2 [...] Services Comments: in Subacute rehab facility Pager: [phone] ORA GOMEZ, PT 06/06/2019 12:25 * Dayami Frazier - 06/06/2019 1040 EST I met with the patient to review medicare IM and wish him well. He was sitting up brushing teeth and getting cleaned up. He feels ready to d/c to rehab today and is very pleased to get into the rehabof his choice. Pt discharging to [facility] via w/c van at [address] Kaila Toussaint will follow. report will be phoned to him @ [phone]. RN report will be phoned the facility rehab unit. Dayami Frazier RN/[facility] #[id number]. * Krystyna Terrazas, OT - 06/06/2019 0819 EST [facility] Rehabilitation Therapy Acute Therapies [facility] - Occupational Therapy Discontinue/Discharge Note Date [...] Lower Body Dressing: Pt able to doff/don case therapist socks using dressing stick and sock aid [...] to returning home. Pt ultimately DC'ed to [facility]. GOALS: Discontinue all goals secondary to pt DC from hospital. Short Term Goals: N/A ?? Residential Goals: Residential Goal Time Frame Boat Motor Mechanic Goal Time Frame: 1-2 weeks Residential Goal 1 Goal: Will perform functional transfers to/from varying surfaces modified I to perform BADL or other functional activities. Residential Goal 2 Goal: Will perform LB dressing/self-care modified I. Residential Goal 3 Goal: Will perform UB dressing/self-care modified I. Boat Motor Mechanic Goal 4 Goal: Will perform toileting tasks min contact A. Residential Goal 5 Goal: Will recall and follow post surgery precautions without verbal reminders during OT sessions. Residential Goal 6 Goal: Will verbalize understanding of any OT recommendations. PLAN: Discontinue occupational therapy at [facility] acute care. Recommended Discharge Destination: Sub-acute rehabilitation Recommended Discharge Services: Occupational therapy at rehabilitation facility Recommended Discharge Equipment: Shower chair (if pt cannot find one he has), Palliative Nurse (if pt cannot find one he has), Toilet aid (Toilet tongs provided by OT), Grab bars next to toilet Further equipment recommendations to be made by next care provider Pager: [phone] GERRI LAINEZ, 06/06/2019, 8:20 Krystyna Terrazas OTR/L, Pager: [phone] * Murray Gomes MD - 06/06/2019 2727 EST Neurosurgery Daily Progress Note Problems/ Low [...] Extraocular movements intact Face symmetric No drift Revit Drafter 5/5 bl Elbow extension and flexion 5/5 [...] Gomes MD Neurosurgery resident 06/06/2019 7:54 Page 3539 with questions * Blayne Tirado - 06/05/2019 1652 EST Spiritual Care Note Re: Nakul Sam : 1945, AGE: 74 y[id number] Nakul Sam who is listed as None [...] . Pt is in good spirit . Emery Grinder provided listening presence.support Plan of Action: No Follow up necessary - Needs met Continued Family Support Continued Support from Emery Grinder following patient Make a Referral to: Continued [...] Support Other Chaplain May ARROYO 131 Phone [phone] Spiritual Care is available 24 hours a day. Chaplains are available 24 hours a day. For routine consults please call and leave a message with the Spiritual Care Office ([phone]) and patients will be seen within 24 hours. For all emergent consults page the Jehovah'S Witness or Interfaith on-call Emery Grinder through [facility] ([phone]). * Dayami Frazier - 06/05/2019 1523 EST Bed offer received from [facility] in [place], pt.'s first choice for [facility]. Facility notes that patient's last charted BM was 06/03. They ask that pt be medicated if necessaryto produce bm prior to his discharge tomorrow. Dr. Kaila Toussaint will follow. report should be phoned to him at [phone]. RN report to be phoned to the facility @ [phone]. NS team informed, COLST and PASRR in patient's chart and will be signed by team. Pt to go via W/C van. He will be picked up in the main lobby at 11am Wednesday 06/06. Dayami Frazier RN/[facility] #[id number]. * Dayami Frazier - 06/05/2019 1355 EST I met with the patient and his was at his bedside. Pt states that he wants the one at the [facility]. Neither could remember the name of the [facility]. Pt agreeable to be listed at all three [facility]'s in [facility] And will decide based on bed offers. I have listed. I will follow up with patient when bed offers are received. Plan for d/c to [facility] as soon as tomorrow. Dayami Frazier RN/[facility] #[id number]. * Ora Gomez, PT - 06/05/2019 1240 EST [facility] Rehabilitation Therapy Acute Therapies [facility] Physical Therapy Encounter Note Date of [...] other consults recommended at this time Pager: [phone] ORA GOMEZ, PT 06/05/2019 12:40 * Dayami Frazier - 06/05/2019 1200 EST Per PT today, patient in need of [facility]. He and are agreeable. I will see and list. Dayami Frazier RN/[facility] #[id number]. * Krystyna Terrazas, OT - 06/05/2019 1112 EST [facility] Rehabilitation Therapy Acute Therapies [facility] - Occupational Therapy Encounter Note Date [...] (if pt cannot find one he has), Palliative Nurse (if pt cannot find one he has), Toilet aid (Toilet tongs provided by OT), Grab bars next to toilet Pager: [phone] GERRI LAINEZ, 06/05/2019, 11:12 Krystyna Terrazas OTR/L, Pager: [phone] * Martín Gayle MD - 06/05/2019 9328 EST Neurosurgery Daily Progress Note Problems/ Low [...] Extraocular movements intact Face symmetric No drift Revit Drafter 5/5 bl Elbow extension and flexion 5/5 [...] Gayle MD Neurosurgery resident 06/05/2019 5:30 Page 4301 with questions * Ora Gomez, PT - 06/04/2019 1320 EST [facility] Rehabilitation Therapy Acute Therapies [facility] Physical Therapy Encounter Note Date of [...] Gomez, PT - 06/04/2019 1023 EST [facility] Rehabilitation Therapy [facility] Physical Therapy Contact Note Date of [...] subacute rehab. Full note to follow Pager [phone] ORA GOMEZ PT 06/04/2019 10:23 * Luz Pierre OT - 06/04/2019 0942 EST [facility] Rehabilitation Therapy [facility] Therapy [facility] Occupational Therapy Initial Evaluation Note Date of Service: 06/04/2019 Reason for Referral: Evaluate and treat Precautions: Activity: Activity as tolerated Spinal Precautions: Other (Comment)(post surgery precautions) Subjective: Subjective Information Reported by: Patient Reporting Person Comment: I am not ready to go home today. Pain Evaluation Pain Comments: Pt reports decreased pain levels in back but did not rate. Objective: Patient Profile: Nakul aSm is a 74 y.o. male admitted on 05/31/2019 secondary to Spinal stenosis, lumbar regionwith neurogenic claudication [M48.062] Spinal stenosis of lumbar region with neurogenic claudication [M48.062]. The patient lives at [address] [place] [address] History of Present Illness/Injury Per Progress Note [...] and tisseal SURGEON = Rios Ahumada MD GUEST SERVICE MANAGER = Good Small MD ANESTHESIA = GETA [...] reported having a commode, shower chair and molding supervisor but was unsure where they were. ) Dressing/Grooming/Feeding Equipment: Dressing stick, Palliative Nurse, Sock aid Mobility Equipment Mobility Equipment: Cane, [...] homes however he will be moving into [facility] upon initial DC. Prior Level of Function Prior Level of Function Comment: Pt reported modified indpendence with BADLs. Pt used adapative equipment (sock aid, dressing stick, etc) to dress himself. Pt uses a rolling walker to mobilize as of recently. 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 Pt reported [...] Past Medical History: Diagnosis Date ??? A-fib ([facility]) dx in 2014, controlled well ??? 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 FL ALLOGRAFT FOR SPINE SURGERY ONLY STRUCTURAL N/A 05/31/2019 . performed by Caleb Ahumada MD at [facility] OR ??? FL ARTHRODESIS POSTERIOR/POSTEROLATERAL LUMBAR N/A 05/31/2019 lumbar laminectomy L1-2 through L4-5, L3-5 instrumented fusion with the use or possible use of allograft performed by Caleb Ahumada MD at [facility] OR ? ? FL LAMINECTOMY,>2 SGMT,LUMBAR N/A 05/31/2019 . performed by Caleb Ahumada MD at [facility] OR ??? FL POSTERIOR SEGMENTAL INSTRUMENTATION 3-6 VRT SEG N/A 05/31/2019 . performed by Caleb Ahumada MD at [facility] OR ??? FL SPINE FUSN,POST TECH,EA ADDNL SGMT N/A 05/31/2019 . performed by Caleb Ahumada MD at [facility] OR Medications: Current Medications: Current medications [...] Lower Body Dressing: Pt able to doff/don case therapist socks using dressing stick and sock aid [...] to therapy session, During therapy session By: [id number] communication Notification Comments: Re: pt status Assessments: Need for Services Appropriateness for Occupational Therapy: The patient was appropriate for an occupational therapy evaluation today Mr. Sam was found to be appropriate for skilled acute OT services after presenting to [facility] s/pL1-L5 posterior decompression, L3-L5 instrumented fusion, [...] Factors: Unsafe Goals: Short Term Goals: N/A Residential Goals: Boat Motor Mechanic Goal Time Frame Residential Goal Time Frame: 1-2 weeks Residential Goal 1 Goal: Will perform functional transfers to/from varying surfaces modified I to perform BADL or other functional activities. Boat Motor Mechanic Goal 2 Goal: Will perform LB dressing/self-care modified I. Boat Motor Mechanic Goal 3 Goal: Will perform UB dressing/self-care modified I. Residential Goal 4 Goal: Will perform toileting tasks min contact A. Residential Goal 5 Goal: Will recall and follow post surgery precautions without verbal reminders during OT sessions. Boat Motor Mechanic Goal 6 Goal: Will verbalize understanding of any OT recommendations. Plan: Necessity: Occupational therapy will be provided by the occupational therapist and/or rn occupational when medically appropriate Active Engagement: Activity tolerance, [...] Grab bars next to toilet Dressing/Grooming/Feeding Equipment: Palliative Nurse VADIM TORO, 06/04/2019, 10:35 LUZ PIERRE OT06/04/201914:09 Pager: [phone] * Martín Gayle MD - 06/04/2019 0434 [...] Extraocular movements intact Face symmetric No drift Revit Drafter 5/5 bl Elbow extension and flexion 5/5 [...] Gayle MD Neurosurgery resident 06/04/2019 4:34 Page 2111 with questions * Martín Gayle MD - [...] Extraocular movements intact Face symmetric No drift Revit Drafter 5/5 bl Elbow extension and flexion 5/5 [...] Gayle MD Neurosurgery resident 06/03/2019 5:01 Page 4334 with questions * Ora Gomez, PT - 06/02/2019 0903 EST [facility] Rehabilitation Therapy [facility] Therapy [facility] Physical Therapy Contact Note Date of Service: 06/02/2019 PT attempted to see Mr. Sam at 0900. He is currently in the bathroom. Per discussion with Nursing, he required one assist for bed mobility and ambulation to br with RW PT will follow up later today Pager [phone] ORA GOMEZ PT 06/02/2019 9:03 * Ora Gomez, PT - 06/02/[address] [facility] Physical Therapy Initial Evaluation Note Date [...] neurogenic claudication [M48.062] The patient lives at [address] [place] [address] History of Present Illness / Injury Current [...] plans to stay at her house in [place] during his recovery General Prior Level of [...] Past Medical History: Diagnosis Date ??? A-fib ([facility]) dx in 2014, controlled well ??? 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 FL ALLOGRAFT FOR SPINE SURGERY ONLY STRUCTURAL N/A 05/31/2019 . performed by Caleb Ahumada MD at [facility] OR ??? FL ARTHRODESIS POSTERIOR/POSTEROLATERAL LUMBAR N/A 05/31/2019 lumbar laminectomy L1-2 through L4-5, L3-5 instrumented fusion with the use or possible use of allograft performed by Caleb Ahumada MD at [facility] OR ? ? FL LAMINECTOMY,>2 SGMT,LUMBAR N/A 05/31/2019 . performed by Caleb Ahumada MD at [facility] OR ??? FL POSTERIOR SEGMENTAL INSTRUMENTATION 3-6 VRT SEG N/A 05/31/2019 . performed by Caleb Ahumada MD at [facility] OR ??? FL SPINE FUSN,POST TECH,EA ADDNL SGMT N/A 05/31/2019 . performed by Caleb Ahumada MD at [facility] OR Medications Current Medications: Current medications [...] During therapy session, After therapy session By: [id number] communication About Mobility and Gait: Mobility status, [...] services pending progress Short-Term Goals:na Long-Term Goals: Boat Motor Mechanic Goal Time Frame: 2 days to 2 [...] by the physical therapist and/or physical therapist auction assistant when medically appropriate Pt will benefit [...] Recommended Comments: pt has necessary equipment Pager: [phone] ORA GOMEZ PT 06/02/2019 13:59 * Martín [...] symmetric Facial sensation grossly intact No drift Revit Drafter 5/5 bl Elbow extension and flexion 5/5 [...] Gayle MD Neurosurgery resident 06/02/2019 5:10 Page 0745 with questions * Cristy Mckay RN - 06/01/2019 5365 EST Pt POD1 s/p L1-5 posterior decomp, L3-5 instrumented fusion, and dural tear repair, dry drsg c/d/i.Pt only tolerating raising HOB to 55 degrees so far, willing to try higher tomorrow. Pt rates lowerback pain at 7/10 consistently. Pt has class III tele orders for a-fib monitoring, required IV metoprolol previous night. #[id number] paged about need to renew or d/c tele and about new concern of L. Hand swelling after pulling out leaky IV. MD Resendiz d/c'd tele orders--notify 1284 if HR sustains in 120s-130s. assessed pt's L. Hand and wasnot concerned of DVT, no need for ultrasound/imaging. Pt now sleeping comfortably in bed, saline locked, hwang still in (per pt request) until able to sit higher to use urinal, call anand in reach, will continue to monitor. * Capo Camargo RN - 06/01/2019 6934 EST Initial Case Management/Social Work Assessment and [...] Health care treatment directive, Durable power of whizzer for healthcare Copy in Chart: Yes, previous copy on file @ [facility] DIRECTIVES FOR FINANCES: Directive For Finances: No TRANSPORTATION: Transportation: Family, Self CULTURAL, SHINTO and/or LANGUAGE factors affecting health care/discharge planning: [...] Provider: [facility]: [id number] - [place], [place] - [address] [facility] [address] [facility] [address] Home Health: Other: POST HOSPITAL TRANSITION PLAN: Patient will plan to discharge to his second house where his spouse lives. She will be his transportation and main source of support while recovering. Spouse lives at [address] [place] [address]/[place] [address] and patient will be going to this address after surgery and receiving home health services through [facility]. Patient has necessary DME, new front rolling [...] symmetric Facial sensation grossly intact No drift Revit Drafter 5/5 bl Elbow extension and flexion 5/5 [...] Gomes MD Neurosurgery resident 06/01/2019 9:49 Page 4728 with questions * Ankita Tran RN - [...] symmetric Facial sensation grossly intact No drift Revit Drafter 5/5 bl Elbow extension and flexion 5/5 [...] MARROQUIN MD Neurosurgery resident 05/31/2019 8:38 Page 2064 with questions documented in this encounter H&P [...] Martinez MD 05/31/2019 7:00 Source Note - MECHANICAL AND AUTO BODY CAR CHECKER, SCAN 2 - 05/24/2019 16:30 EST documented in this encounter OR Notes * OR Surgeon - Caleb Ahumada MD - 05/31/2019 0000 EST OPERATIVE REPORT SERVICE DATE: 05/31/2019 SURGEON: Robi Ahumada MD GUEST SERVICE MANAGER: Good Small MD PROCEDURES: 1. Spinal image [...] processes. Intraoperative x-ray confirmed correct level. A ClearServe reference array was placedon the L5 spinous process and a high resolution cone beam CT obtained with the O-arm. I then broke scrub and prep performed surgical planning on the ClearServe workstation. I then scrubbed and reenteredthe field and tested points, confirming a satisfactory registration. Starting on the right side at L3, a agricultural aircraft pilot hole was drilled and a pedicle [...] / S Rios Ahumada MD cn Confirmation: [id number] Dictation ID: [id number] * Preprocedure Instructions - Tamy Corrales RN [...] Goal This Shift: Pt to discharge to [facility] today Note: Nursing Discharge Note D: [facility] A: Belongings collected and sent home with patient. [facility]. R: Pt left [...] and tisseal SURGEON = Rios Ahumada MD GUEST SERVICE MANAGER = Good Small MD ANESTHESIA = GETA COMPLICATIONS = Durotomy FINDINGS = Bony and ligamentous stenosis EBL = 450 IVF = See anesthesia record UOP = See anesthesia record SPECIMENS/CULTURES = None DRAINS = None SKIN = Nylon DISPO = PACU then Floor HOB flat, Bedrest until tomorrow AM, Logroll okay Good Small MD Neurosurgery resident 05/31/2019 15:19 Page 4437 with questions documented in this encounter Plan [...] 9:05 EST) 06/09/2019 9:05 EST Scan 2 Siebel Administrator PROCEDURE/MINOR JACKY GICAL ORDERABLES * (ABNORMAL) COMPLETE BLOOD COUNT AND DIFFERENTIAL (06/06/2019 6:41 EST) WBC 6.40 4.00 - 10.40 K/cmm 06/06/2019 7:01 [facility] RBC 2.72(L) 4.36 - 5.78 M/cmm 06/06/2019 7:01 [facility] Hemoglobin 8.3(L) 13.8 - 17.3 gm/dL 06/06/2019 7:01 [facility] HCT 24.1(L) 39.5 - 50.2 % 06/06/2019 7:01 [facility] MCV 89 81 - 95 fl 06/06/2019 7:01 [facility] MCH 30.5 27.6 - 33.0 pg 06/06/2019 7:01 [facility] MCHC 34.4 32.8 - 36.4 gm/dL 06/06/2019 7:01 [facility] RDW-CV 13.9 <14.2 % 06/06/2019 7:01 [facility] RDW-SD 44.9 <46.0 fl 06/06/2019 7:01 [facility] PLT 269 141 - 377 K/cmm 06/06/2019 7:01 [facility] MPV 9.6 9.5 - 12.7 fl 06/06/2019 7:01 [facility] % Neutrophils 64.5 % 06/06/2019 7:01 [facility] % Lymphocytes 19.8 % 06/06/2019 7:01 [facility] % Monocytes 13.3 % 06/06/2019 7:01 [facility] % Eosinophils 1.3 % 06/06/2019 7:01 [facility] % Basophils 0.2 % 06/06/2019 7:01 [facility] % Immature Grans 0.9 % 06/06/20 19 7:01 [facility] Absolute Neutrophils 4.13 2.20 - 8.85 K/cmm 06/06/2019 7:01 [facility] Absolute Lymphocytes 1.27 1.09 - 3.30 K/cmm 06/06/2019 7:01 [facility] Absolute Monocytes 0.85(H) 0.10 - 0.80 K/cmm 06/06/2019 7:01 [facility] Absolute Eosinophils 0.08 0.03 - 0.61 K/cmm 06/06/2019 7:01 [facility] ABS Basophils 0.01 0.01 - 0.11 K/cmm 06/06/2019 7:01 [facility] Absolute Immature Grans 0.06 0.00 - 0.06 K/cmm 06/06/2019 7:01 [facility] Type of Differential: Auto 06/06/2019 7:01 [facility] Blood VENOUS BLOOD / Unknown Venipuncture / Unknown 06/06/2019 6:41 EST 06/06/2019 6:54 EST Murray Gomes MD PACKAGES & DNA PROBE ORDERABLES Performing Organization Address City/[facility] [facility] Co de Phone Number [facility] [address] [place] [address] * (ABNORMAL) ELECTROLYTES (06/06/2019 6:41 EST) Sodium 134(L) 136 - 145 mEq/L 06/06/2019 7:19 [facility] Potassium 3.6 3.5 - 5.0 mEq/L 06/06/2019 7:19 [facility] Chloride 99 96 - 110 mEq/L 06/06/2019 7:19 [facility] CO2 Total 28 22 - 32 mEq/L 06/06/2019 7:19 [facility] Blood VENOUS BLOOD / Unknown Venipuncture / Unknown 06/06/2019 6:41 EST 06/06/2019 6:54 EST Murray Gomes MD CHEMISTRY & BLO OD GAS ORDERABLES Performing Organization Address City/[facility]/ZIP Co de Phone Number [facility] [address] [place] [address] * ECG REPORT - SCANNED (06/05/2019 14:40 EST) 06/05/2019 14:4 0 EST Scan 2 Siebel Administrator PROCEDURE/MINOR JACKY GICAL ORDERABLES * (ABNORMAL) COMPLETE BLOOD COUNT AND DIFFERENTIAL (06/03/2019 5:29 EST) WBC 10.99(H) 4.00 - 10.40 K/cmm 06/03/2019 6:24 [facility] RBC 2.98(L) 4.36 - 5.78 M/cmm 06/03/2019 6:24 [facility] Hemoglobin 8.8(L) 13.8 - 17.3 gm/dL 06/03/2019 6:24 [facility] HCT 26.2(L) 39.5 - 50.2 % 06/03/2019 6:24 [facility] MCV 88 81 - 95 fl 06/03/2019 6:24 [facility] MCH 29.5 27.6 - 33.0 pg 06/03/2019 6:24 [facility] MCHC 33.6 32.8 - 36.4 gm/dL 06/03/2019 6:24 [facility] RDW-CV 13.5 <14.2 % 06/03/2019 6:24 [facility] RDW-SD 43.8 <46.0 fl 06/03/2019 6:24 [facility] PLT 149 141 - 377 K/cmm 06/03/2019 6:24 [facility] MPV 10.9 9.5 - 12.7 fl 06/03/2019 6:24 [facility] % Neutrophils 78.6 % 06/03/2019 6:24 [facility] % Lymphocytes 12.5 % 06/03/2019 6:24 [facility] % Monocytes 7.8 % 06/03/2019 6:24 [facility] % Eosinophils 0.4 % 06/03/2019 6:24 [facility] % Basophils 0.1 % 06/03/2019 6:24 [facility] % Immature Grans 0.6 % 06/03/20 19 6:24 [facility] Absolute Neutrophils 8.64 2.20 - 8.85 K/cmm 06/03/2019 6:24 [facility] Absolute Lymphocytes 1.37 1.09 - 3.30 K/cmm 06/03/2019 6:24 [facility] Absolute Monocytes 0.86(H) 0.10 - 0.80 K/cmm 06/03/2019 6:24 [facility] Absolute Eosinophils 0.04 0.03 - 0.61 K/cmm 06/03/2019 6:24 [facility] ABS Basophils 0.01 0.01 - 0.11 K/cmm 06/03/2019 6:24 [facility] Absolute Immature Grans 0.07(H) 0.00 - 0.06 K/cmm 06/03/2019 6:24 EST [facility] Type of Differential: Auto 06/03/2019 6:24 EST [facility] Blood VENOUS BLOOD / Unknown Venipuncture / Unknown 06/03/2019 5:29 EST 06/03/2019 6:11 EST Good Small MD PACKAGES & DNA PROB E ORDERABLES Performing Organization Address [facility] Phone Number [facility] [address] [place] [address] * (ABNORMAL) CREATININE (06/03/2019 5:29 EST) Creatinine 0.64(L) 0.66 - 1.25 mg/dL 06/03/2019 6:49 EST [facility] eGFR 95 >60 mL/min/1.7 3m2 06/03/2019 6:49 EST [facility] Comment:eGFR calculated usin g CKD-EPI equation for non- Americans. Multiply eGFR by 1.16 for patients. Blood VENOUS BLOOD / Unknown Venipuncture / Unknown 06/03/2019 5:29 EST 06/03/2019 6:19 EST Good Small MD CHEMISTRY & BLOOD G ORDERABLES Performing Organization Address [facility] Co de Phone Number [facility] [address] [place] [address] * BUN (06/03/2019 5:29 EST) BUN 15 10 - 26 mg/dL 06/03/2019 6:49 EST [facility] Blood VENOUS BLOOD / Unknown Venipuncture / Unknown 06/03/2019 5:29 EST 06/03/2019 6:19 EST Good Small MD CHEMISTRY & BLOOD G ORDERABLES Performing Organization Address [facility] Co de Phone Number [facility] [address] [place] [address] * (ABNORMAL) ELECTROLYTES (06/03/2019 5:29 EST) Sodium 128(L) 136 - 145 mEq/L 06/03/2019 6:49 EST [facility] Potassium 3.6 3.5 - 5.0 mEq/L 06/03/2019 6:49 EST [facility] Chloride 95(L) 96 - 110 mEq/L 06/03/2019 6:49 EST [facility] CO2 Total 30 22 - 32 mEq/L 06/03/2019 6:49 EST [facility] Blood VENOUS BLOOD / Unknown Venipuncture / Unknown 06/03/2019 5:29 EST 06/03/2019 6:19 EST Good Small MD CHEMISTRY & BLOOD G ORDERABLES Performing Organization Address City/State/[facility] Co de Phone Number [facility] [address] [place] [address] * XR LUMBAR SPINE 2-3 VIEWS (06/02/2019 [...] 13.38(H) 4.00 - 10.40 K/cmm 06/02/2019 6:35 [facility] RBC 3.22(L) 4.36 - 5.78 M/cmm 06/02/2019 6:35 [facility] Hemoglobin 9.7(L) 13.8 - 17.3 gm/dL 06/02/2019 6:35 [facility] HCT 28.7(L) 39.5 - 50.2 % 06/02/2019 6:35 [facility] MCV 89 81 - 95 fl 06/02/2019 6:35 [facility] MCH 30.1 27.6 - 33.0 pg 06/02/2019 6:35 [facility] MCHC 33.8 32.8 - 36.4 gm/dL 06/02/2019 6:35 [facility] RDW-CV 13.9 <14.2 % 06/02/2019 6:35 [facility] RDW-SD 45.2 <46.0 fl 06/02/2019 6:35 [facility] PLT 143 141 - 377 K/cmm 06/02/2019 6:35 [facility] MPV 11.2 9.5 - 12.7 fl 06/02/2019 6:35 [facility] % Neutrophils 80.3 % 06/02/2019 6:35 [facility] % Lymphocytes 10.3 % 06/02/2019 6:35 [facility] % Monocytes 8.7 % 06/02/2019 6:35 [facility] % Eosinophils 0.1 % 06/02/2019 6:35 [facility] % Basophils 0.1 % 06/02/2019 6:35 [facility] % Immature Grans 0.5 % 06/02/20 19 6:35 [facility] Absolute Neutrophils 10.73(H) 2.20 - 8.85 K/cmm 06/02/2019 6:35 [facility] Absolute Lymphocytes 1.38 1.09 - 3.30 K/cmm 06/02/2019 6:35 [facility] Absolute Monocytes 1.17(H) 0.10 - 0.80 K/cmm 06/02/2019 6:35 [facility] Absolute Eosinophils 0.01(L) 0.03 - 0.61 K/cmm 06/02/2019 6:35 [facility] ABS Basophils 0.02 0.01 - 0.11 K/cmm 06/02/2019 6:35 [facility] Absolute Immature Grans 0.07(H) 0.00 - 0.06 K/cmm 06/02/2019 6:35 [facility] Type of Differential: Auto 06/02/2019 6:35 [facility] Blood VENOUS BLOOD / Unknown Venipuncture / Unknown 06/02/2019 5:35 EST 06/02/2019 6:21 EST Good Small MD PACKAGES & DNA PROB E ORDERABLES [facility] [address] [place] [address] * CREATININE (06/02/2019 5:35 EST) Creatinine 0.84 0.66 - 1.25 mg/dL 06/02/2019 6:55 [facility] eGFR 85 >60 mL/min/1.7 3m2 06/02/2019 6:55 [facility] Comment:eGFR calculated tio plascencia CKD-EPI equation for non- Americans. Multiply eGFR by 1.16 for patients. Blood VENOUS BLOOD / Unknown Venipuncture / Unknown 06/02/2019 5:35 EST 06/02/2019 6:21 EST Good Small MD CHEMISTRY & BLOOD G ORDERABLES Performing Organization Address [facility] Co de Phone Number [facility] [address] [place] [address] * BUN (06/02/2019 5:35 EST) BUN 16 10 - 26 mg/dL 06/02/2019 6:55 EST [facility] Blood VENOUS BLOOD / Unknown Venipuncture / Unknown 06/02/2019 5:35 EST 06/02/2019 6:21 EST Good Small MD CHEMISTRY & BLOOD G ORDERABLES Performing Organization Address [facility] Phone Number [facility] [address] [place] [address] * (ABNORMAL) ELECTROLYTES (06/02/2019 5:35 EST) Sodium 129(L) 136 - 145 mEq/L 06/02/2019 6:55 [facility] Potassium 4.0 3.5 - 5.0 mEq/L 06/02/2019 6:55 [facility] Chloride 96 96 - 110 mEq/L 06/02/2019 6:55 [facility] CO2 Total 28 22 - 32 mEq/L 06/02/2019 6:55 [facility] Blood VENOUS BLOOD / Unknown Venipuncture / Unknown 06/02/2019 5:35 EST 06/02/2019 6:21 EST Good Small MD CHEMISTRY & BLOOD G ORDERABLES Performing Organization Address [facility] Co de Phone Number [facility] [address] [place] [address] * (ABNORMAL) COMPLETE BLOOD COUNT AND DIFFERENTIAL (06/01/2019 5:24 EST) WBC 10.88(H) 4.00 - 10.40 K/cmm 06/01/2019 6:02 [facility] RBC 3.43(L) 4.36 - 5.78 M/cmm 06/01/2019 6:02 [facility] Hemoglobin 10.3(L) 13.8 - 17.3 gm/dL 06/01/2019 6:02 [facility] HCT 30.5(L) 39.5 - 50.2 % 06/01/2019 6:02 [facility] MCV 89 81 - 95 fl 06/01/2019 6:02 [facility] MCH 30.0 27.6 - 33.0 pg 06/01/2019 6:02 [facility] MCHC 33.8 32.8 - 36.4 gm/dL 06/01/2019 6:02 [facility] RDW-CV 14.3(H) <14.2 % 06/01/2019 6:02 [facility] RDW-SD 46.1(H) <46.0 fl 06/01/2019 6:02 [facility] PLT 134(L) 141 - 377 K/cmm 06/01/2019 6:02 [facility] MPV 11.4 9.5 - 12.7 fl 06/01/2019 6:02 [facility] % Neutrophils 75.8 % 06/01/2019 6:02 [facility] % Lymphocytes 12.2 % 06/01/2019 6:02 [facility] % Monocytes 11.5 % 06/01/2019 6:02 [facility] % Eosinophils 0.0 % 06/01/2019 6:02 [facility] % Basophils 0.1 % 06/01/2019 6:02 [facility] % Immature Grans 0.4 % 06/01/20 19 6:02 [facility] Absolute Neutrophils 8.25 2.20 - 8.85 K/cmm 06/01/2019 6:02 [facility] Absolute Lymphocytes 1.33 1.09 - 3.30 K/cmm 06/01/2019 6:02 [facility] Absolute Monocytes 1.25(H) 0.10 - 0.80 K/cmm 06/01/2019 6:02 [facility] Absolute Eosinophils 0.00(L) 0.03 - 0.61 K/cmm 06/01/2019 6:02 [facility] ABS Basophils 0.01 0.01 - 0.11 K/cmm 06/01/2019 6:02 [facility] Absolute Immature Grans 0.04 0.00 - 0.06 K/cmm 06/01/2019 6:02 [facility] Type of Differential: Auto 06/01/2019 6:02 [facility] Blood VENOUS BLOOD / Unknown Venipuncture / Unknown 06/01/2019 5:24 EST 06/01/2019 5:51 EST Good Small MD PACKAGES & DNA PROB E ORDERABLES Performing Organization Address [facility] de Phone Number [facility] [address] [place] [address] * CREATININE (06/01/2019 5:24 EST) Creatinine 0.79 0.66 - 1.25 mg/dL 06/01/2019 6:18 [facility] eGFR 87 >60 mL/min/1.7 3m2 06/01/2019 6:18 [facility] Comment:eGFR calculated tio plascencia CKD-EPI equation for non- Americans. Multiply eGFR by 1.16 for patients. Blood VENOUS BLOOD / Unknown Venipuncture / Unknown 06/01/2019 5:24 EST 06/01/2019 5:51 EST Good Small MD CHEMISTRY & BLOOD G ORDERABLES Performing Organization Address [facility] Co de Phone Number [facility] [address] [place] [address] * BUN (06/01/2019 5:24 EST) BUN 15 10 - 26 mg/dL 06/01/2019 6:18 [facility] Blood VENOUS BLOOD / Unknown Venipuncture / Unknown 06/01/2019 5:24 EST 06/01/2019 5:51 EST Good Small MD CHEMISTRY & BLOOD G ORDERABLES Performing Organization Address [facility] de Phone Number [facility] [address] [place] [address] * (ABNORMAL) ELECTROLYTES (06/01/2019 5:24 EST) Sodium 134(L) 136 - 145 mEq/L 06/01/2019 6:18 EST [facility] Potassium 4.1 3.5 - 5.0 mEq/L 06/01/2019 6:18 [facility] Chloride 102 96 - 110 mEq/L 06/01/2019 6:18 [facility] CO2 Total 27 22 - 32 mEq/L 06/01/2019 6:18 EST [facility] Blood VENOUS BLOOD / Unknown Venipuncture / Unknown 06/01/2019 5:24 EST 06/01/2019 5:51 EST Good Small MD CHEMISTRY & BLOOD G ORDERABLES Performing Organization Address [facility] de Phone Number [facility] [address] [place] [address] * XR LUMBAR SPINE 1 VIEW (05/31/2019 [...] present in the abdominal aorta. Procedure Note Krik Gutierrez MD - 06/01/2019 LUMBAR SPINE, 1 [...] pedicles and L3 vertebral body. Procedure Note iKrk Gutierrez MD - 05/31/2019 LUMBAR SPINE, 1 VIEW HISTORY: Level check. TECHNIQUE: Single lateral intraoperative portable radiograph of the lumbarspine. COMPARISON: Lumbar spine radiographs 11/22/2018. Lumbar spine MRI09/16/2018. FINDINGS: A spinal needle projects over the posterior soft tissues, its tip alongthe posterior margin of the L2 spinous process, directed towards the [id number] and L3 vertebral body. IMPRESSION Intraoperative localization Dr. Wang reviewed these findings with Dr. Ahumada on 05/31/2019 at 8:18AM. I have personally reviewed the images and the above interpretation andagree with the findings. Caleb Ahumada MD IMG DIAGNOSTIC IM AGING ORDERABLES * TYPE AND SCREEN (05/31/2019 6:35 EST) ABO A 05/31/2019 8:35 EST [facility] Rh Factor Positive 05/31/2019 8:35 EST [facility] Antibody Screen Negative 05/31/2019 8:35 EST [facility] Specimen Expires: 06/03/2019 @ 23:59 05/31/2019 8:35 EST [facility] Blood VENOUS BLOOD / Unknown Venipuncture / Unknown 05/31/2019 6:35 EST 05/31/2019 6:35 EST Chencho Tarango MD BLOOD BANK TESTS Performing Organization Address City/State/[facility] Co de Phone Number [facility] [address] [facility] [place] [address] documented in this encounter Visit Diagnoses Diagnosis [...] Reason: Patient/family refused)2012 (Not Given - Provider: Viot Trejo RN - Reason: Patient/family refused) 0815 [...] 05/2806/04/2019 documented in this encounter Care Teams Exit Booth Agent Relationship Specialty Start Date End Date Garcia Gonzales MD [address] [place] [address] PCP - General 09/03/09 documented as of this encounter
--- OUTSIDE RECORDS SUMMARY | 2024-02-08 21:55 | XMS_ITS | Encounter Summary ---
Author Organization [facility] Address [address] [place] [id number] Care Team Providers Care Claims Clerk Name Role Phone Garcia Gonzales MD Primary Care Provider [phone] Reason for Referral * PT/OT/ST (Routine) - Authorization Not Required Specialty Diagnoses / Procedures Referred By Contac t Referred To Contact Diagnoses Lumbar stenosis with neurogenic claudication Caleb Ahumada MD [address] [place] [id number] Referral ID Status Reason Start Date Expiration Date Visits Requested Visits Authorized [id number] Authorization Not Required Specialty Services Required 06/27/20 19 1 1 Question Answer Reason for Request: strengthening after lumbar fusion Reason for Visit * Reason Comments Back Pain LBP Encounter Details Date Type Department Care Team (Late st Contact Info) Description 06/27/2019 15:00 EST Post-op Visit [facility] Neurosurgery - [address] [address] Caleb Ahumada MD [address] [place] [phone] Lumbar stenosis with neurogenic claudication (Primary [...] were answered. Fifteen minutes of this 25-minute [id number] visit were spent in patient counseling. documented [...] claudication documented in this encounter Care Teams Claims Clerk Relationship Specialty Start Date End Date Garcia Gonzales MD [address] [place] [address] PCP - General 09/03/09 documented as of this encounter
--- OUTSIDE RECORDS SUMMARY | 2024-02-08 21:55 | XMS_ITS | Encounter Summary ---
Author Organization [facility] Address [address] [place] [address] Care Team Providers Care Efficiency Analyst Name Role Phone Garcia Gonzales MD Primary Care Provider [phone] Reason for Visit * Reason Onset Date Comments Appointment Related 03/27/2020 Encounter Details Date Type Department Care Team (Late st Contact Info) Description 03/27/2020 Telephone [facility] - [address] [address] Caleb Ahumada MD [address] [place] [address], [address] [place] [phone] Appointment Related Social History Tobacco Use Types [...] * Telephone Encounter - [facility] - 03/27/2020 1786 EDT Patient called to schedule his follow up with Dr. Ahumada. Advised patient that Dr. Ahumada is not inthe office, but that he can see one of our LAW's instead. Confirmed appointment details below. Reviewed current visitor & welcome policy. Patient verbalized understanding and denied having any questions at this time. Location: [facility] Provider: Rosalva Finney NP Date: 05/10/20 Time: 1:20pm Arrival: 12:20pm for xrays documented in this encounter Plan of Treatment Not on file documented as of this encounter Visit Diagnoses Not on filedocumented in this encounter Care Teams Efficiency Analyst Relationship Specialty Start Date End Date Garcia Gonzales MD [address] [place] [address] PCP - General 09/03/09 documented as of this encounter
--- OUTSIDE RECORDS SUMMARY | 2024-02-08 21:55 | XMS_ITS | Encounter Summary ---
Author Organization [facility] Address [address] [place] [address] Care Team Providers Care Medical Assistant Secretary Name Role Phone Garcia Gonzales MD Primary Care Provider [phone] Reason for Visit * Reason Onset Date Comments Procedure 05/09/2019 Follow-up 05/09/2019 Encounter Details Date Type Department Care Team (Late st Contact Info) Description 05/09/2019 Telephone [facility] - [address] [address] Caleb Ahumada MD [address] [place] [address], [address] [place] [phone] Procedure; Follow-up Social History Tobacco [...] EST Pt requesting a call back at [phone] today with procedure time for tomorrow documented in this encounter Plan of Treatment Not on file documented as of this encounter Visit Diagnoses Not on filedocumented in this encounter Care Teams Medical Assistant Secretary Relationship Specialty Start Date End Date Garcia Gonzales MD [address] [place] [address] PCP - General 09/03/09 documented as of this encounter
--- OUTSIDE RECORDS SUMMARY | 2024-02-08 21:55 | XMS_ITS | Encounter Summary ---
Author Organization [facility] Address [address] [place] [address] Care Team Providers Care Property Disposal Officer Name Role Phone Garcia Gonzales MD Primary Care Provider [phone] Encounter Details Date Type Department Care Team (Latest Contact Info) Description 07/01/2020 Travel Social History Tobacco Use Types Packs/Day Years Used Date Smoking Tobacco: Former Cigarettes 3 15 1 [id number] Smokeless Tobacco: Never Comments:quit 41 years ago [...] on filedocumented in this encounter Care Teams Property Disposal Officer Relationship Specialty Start Date End Date Garcia Gonzales MD [address] [place] [address] PCP - General 09/03/09 documented as of this encounter
--- OUTSIDE RECORDS SUMMARY | 2024-02-08 21:55 | XMS_ITS | Encounter Summary ---
Author Organization [facility] Address [address] [place] [address] Care Team Providers Care Dice Table Operator Name Role Phone Garcia Gonzales MD Primary Care Provider [phone] Encounter Details Date Type Department Care Team (Late st Contact Info) Description 05/24/2019 Prep for Procedure [facility] Neurosurgery - [address] [id number] Queta Hall PA-C [address] [place] [address], [address] [place] [address] Social History Tobacco Use Types [...] on filedocumented in this encounter Care Teams Dice Table Operator Relationship Specialty Start Date End Date Garcia Gonzales MD [address] [place] [address] PCP - General 09/03/09 documented as of this encounter
--- OUTSIDE RECORDS SUMMARY | 2024-02-08 21:55 | XMS_ITS | Encounter Summary ---
Author Organization [facility] Address [address] [place] [address] Care Team Providers Care Salesperson Terra[employer] Name Role Phone Garcia Gonzlaes MD Primary Care Provider [phone] Reason for Visit * Auth/Cert Specialty Diagnoses / Procedures [facility] Referred To Contact Diagnoses Spinal stenosis, lumbar region with neurogenic claudication Procedures MD ARTHRODESIS POSTERIOR/POSTEROLATERAL LUMBAR MD SPINE FUSN,POST TECH,EA ADDNL SGMT MD LAMINECTOMY,>2 SGMT,LUMBAR MD POSTERIOR SEGMENTAL INSTRUMENTATION 3-6 VRT SEG MD ALLOGRAFT FOR SPINE SURGERY ONLY STRUCTURAL lumbar laminectomy L1-2 through L4-5, L3-5 instrumented fusion with the use or possible use of allograft . . . . Referral ID Status Reason Start Date Expiration Date Visits Re quested Visits Authorized [id number] 1 1 Encounter Details Date Type Department Care Team (Late st Contact Info) Description 05/31/2019 7:37 EST Anesthesia Event [facility] OR [address] [place] [address] Jose Armando Cano MD [address] [place] [id number] Clementina David CRNA [address] [id number] Anesthesia Record Procedure Summary Procedure Name Responsible [...] ical; Posterior; Neck; C5-T2 vertical incision 01/18/19 0901 by Bal Bose, marker machine attendant 05/31/19; 0837; Inci jose; Lower, Midline; Back; Surgical incision for Lumbar decompression and instrumented fusion; N; Full thickness 05/31/19 0837 by Celsa Sanders RN Closed/Suction Drain 06/01/19; 1900 (pt does not [...] by Clementina David CRNA 05/31/19 1521 by Clementina David CRNA Peripheral IV 05/31/19; 0912; Othe r (Comment) (harry); Right; Hand; At bedside by Provider (Loraine Coleman CRNA); 1; 06/02/19; 1000; Leaking; No complications 05/31/19 0912 by Clementina David CRNA 06/02/19 1000 by Zaynab Aguilera RN documented in this encounter Social History Tobacco Use Types Packs/Day Years Used Date Smoking Tobacco: Former Cigarettes 3 15 1 3 - 1977 Smokeless Tobacco: Never Comments:quit 39 [...] procedure: OR Anesthesiologist: Jose Armando Cano MD Resident/SYSTEMS ANALYST DEVELOPER: Clementina David APRN Performed: resident/SYSTEMS ANALYST DEVELOPER/AA Indications and Patient Condition Indications for airway [...] Past Medical History: Diagnosis Date ??? A-fib ([facility]) dx in 2014, controlled well ??? [...] EST documented in this encounter Results * MD AN ELECTIVE ENDOTRACHEAL AIRWAY (05/31/2019 8:09 EST) Narrative Clementina David, ENCEPHALOGRAPHER - 05/31/2019 8:09 EST Clementina David, SURI ? 05/31/2019 ??8:10 Airway Date/Time: 05/31/2019 7:48 Urgency: elective Airway not difficult General Information and Staff Patient location during procedure: OR Anesthesiologist: Jose Armando Cano MD Resident/SYSTEMS ANALYST DEVELOPER: Clementina David APRN Performed: resident/SYSTEMS ANALYST DEVELOPER/AA Indications and Patient Condition Indications for airway management: anesthesia Sedation level: GA Preoxygenated: yes Patient position: sniffing Ventilation assessment: 2 - Oral airway inserted Final Airway Details Final airway type: endotracheal airway Successful airway: ETT Cuffed: yes Successful intubation technique: video laryngoscopy Callahan Facilitating devices/methods: intubating stylet Endotracheal tube insertion [...] mg documented in this encounter Care Teams Salesperson Terrazzo T[employer] Relationship Specialty Start Date End Date Garcia Gonzales MD [address] [place] [address] PCP - General 09/03/09 documented as of this encounter
--- OUTSIDE RECORDS SUMMARY | 2024-02-08 21:55 | XMS_ITS | Encounter Summary ---
Author Organization [facility] Address [address] [place] [address] Care Team Providers Care Customer Contact Sales Associate Name Role Phone Garcia Gonzales MD Primary Care Provider [phone] Reason for Visit * (Routine) - Receiving Office to Obtain Authorization Specialty Diagnoses / Procedures Referred By Lucia garcia Referred To Contact Procedures MR OUTSIDE IMAGES NEURO Unknown, Provider, Referral ID Status Reason Start Date Expiration Date Visits Requested Visits Authorized [id number] Receiving Office to Obtain Authorization 10/23/2020 1 1 Encounter Details Date Type Department Care Team (Latest Contact Info) Description 10/22/2020 - 10/22/2020 23:59 EDT Hospital Encounter [facility] Secondary Reads [place] Discharge Disposition: [...] on filedocumented in this encounter Care Teams Customer Contact Sales Associate Relationship Specialty Start Date End Date Garcia Gonzales MD [address] [place] [address] PCP - General 09/03/09 documented as of this encounter
--- OUTSIDE RECORDS SUMMARY | 2024-02-08 21:55 | XMS_ITS | Encounter Summary ---
Author Organization [facility] Address [address] [place] [address] Care Team Providers Care Star Route Mail Driver Name Role Phone Garcia Gonzales MD Primary Care Provider [phone] Reason for Visit * Auth/Cert Specialty Diagnoses / Procedures [facility] Referred To Contact Diagnoses Spinal stenosis, lumbar region with neurogenic claudication Procedures OK ARTHRODESIS POSTERIOR/POSTEROLATERAL LUMBAR OK SPINE FUSN,POST TECH,EA ADDNL SGMT OK LAMINECTOMY,>2 SGMT,LUMBAR OK POSTERIOR SEGMENTAL INSTRUMENTATION 3-6 VRT SEG OK ALLOGRAFT FOR SPINE SURGERY ONLY STRUCTURAL lumbar laminectomy L1-2 through L4-5, L3-5 instrumented fusion with the use or possible use of allograft . . . . Referral ID Status Reason Start Date Expiration Date Visits Re quested Visits Authorized [id number] 1 1 Encounter Details Date Type Department Care Team (Late st Contact Info) Description 05/31/2019 7:25 EST - 05/31/2019 12:25 EST Surgery [facility] OR [address] [place] [address] [id number] Caleb Ahumada MD [address] [facility], [address] [place] [id number] lumbar laminectomy L1-2 through L4-5, L3-5 instrumented fusion with the use or possible use of allograft [[id number] (CPT??)] Surgery Details Date/Time Status Location OR Service Patient Class Case Class Case Type Trauma Case? 05/31/19 0725 Posted [facility] OR [facility] Neurosurgery Exte nded Stay H - [...] Primary Care Provider: Garcia Gonzales Attending Physician: aCleb Ahumada MD Admit Date: 05/31/2019 Discharge Date: [...] Post Op Visit with Caleb Ahumada MD [facility] Neurosurgery - [facility] (--) [address] [facility] [address] ALICIA MARROQUIN MD 06/03/2019 8:02 documented in [...] Gomez, PT - 06/06/2019 1042 EST [facility] Rehabilitation Therapy Acute Therapy [facility] Physical Therapy Discontinue/Discharge Note Date of Service: 06/06/2019 Mobility Precautions Activity: Activity as tolerated Spinal Precautions: Spine A Surgery/No Brace SUBJECTIVE: Other Subjective Statements: N/A OBJECTIVE: PatientProfile: Patient is a 74 y.o. male admitted on 05/31/2019 secondary to Spinal stenosis, lumbar region with neurogenic claudication [M48.062] Spinal stenosis of lumbar region with neurogenic claudication [M48.062] The patient lives at [address] [place] [address] Interventions Completed Today: Interventions Included: No interventions [...] at subacuterehab Short-Term Goals: na Long-Term Goals: Manager Of Regulatory Affairs Goal Time Frame: 2 days to 2 [...] Services Comments: in Subacute rehab facility Pager: [phone] ORA GOMEZ, PT 06/06/2019 12:25 * Dayami Frazier - 06/06/2019 1040 EST I met with the patient to review medicare IM and wish him well. He was sitting up brushing teeth and getting cleaned up. He feels ready to d/c to rehab today and is very pleased to get into the rehabof his choice. Pt discharging to [facility] via w/c van at [address] Kaila Toussaint will follow. report will be phoned to him @ [phone]. RN report will be phoned the facility rehab unit. Dayami Frazier RN/[facility] #[id number]. * Krystyna Terrazas OT - 06/06/2019 0819 EST [facility] Rehabilitation Therapy Acute Therapies [facility] - Occupational Therapy Discontinue/Discharge Note Date [...] Lower Body Dressing: Pt able to doff/don salesperson women's dresses socks using dressing stick and sock aid [...] from hospital. Short Term Goals: N/A ?? Manager Of Regulatory Affairs Goals: Manager Of Regulatory Affairs Goal Time Frame Manager Of Regulatory Affairs Goal Time Frame: 1-2 weeks Manager Of Regulatory Affairs Goal 1 Goal: Will perform functional transfers to/from varying surfaces modified I to perform BADL or other functional activities. Care Home Goal 2 Goal: Will perform LB dressing/self-care modified I. Care Home Goal 3 Goal: Will perform UB dressing/self-care modified I. Care Home Goal 4 Goal: Will perform toileting tasks min contact A. Care Home Goal 5 Goal: Will recall and follow post surgery precautions without verbal reminders during OT sessions. Manager Of Regulatory Affairs Goal 6 Goal: Will verbalize understanding of any OT recommendations. PLAN: Discontinue occupational therapy at [facility] acute care. Recommended Discharge Destination: Sub-acute rehabilitation Recommended Discharge Services: Occupational therapy at rehabilitation facility Recommended Discharge Equipment: Shower chair (if pt cannot find one he has), Human Intelligence (if pt cannot find one he has), Toilet aid (Toilet tongs provided by OT), Grab bars next to toilet Further equipment recommendations to be made by next care provider Pager: [phone] GERRI LAINEZ, 06/06/2019, 8:20 Krystyna Terrazas OTR/L, Pager: [phone] * Murray Gomes MD - 06/06/2019 0754 [...] Extraocular movements intact Face symmetric No drift Information Clerk Cashier 5/5 bl Elbow extension and flexion 5/5 [...] Gomes MD Neurosurgery resident 06/06/2019 7:54 Page 0683 with questions * Aliyah Tiradolis - 06/05/2019 1652 EST Spiritual Care Note Re: Nakul Ana Maria Sam : 1945, AGE: 74 y.o. Room: [facility]/[id number] Nakul Sam who is listed as None [...] . Pt is in good spirit . Jackscrew Man provided listening presence.support Plan of Action: No Follow up necessary - Needs met Continued Family Support Continued Support from Jackscrew Man following patient Make a Referral to: Continued [...] Support Other Chaplain CRUZ Olvera [address] Phone [phone] Spiritual Care is available 24 hours a day. Chaplains are available 24 hours a day. For routine consults please call and leave a message with the Spiritual Care Office ([phone]) and patients will be seen within 24 hours. For all emergent consults page the Jehovah'S Witness or Interfaith on-call Jackscrew Man through PAS ([phone]). * Dayami Frazier - 06/05/2019 1523 EST Bed offer received from [facility] in [place], pt.'s first choice for RE[facility]NA. Facility notes that patient's last charted BM was 06/03. They ask that pt be medicated if necessaryto produce bm prior to his discharge tomorrow. Dr. Kaila Toussaint will follow. MD report should be phoned to him at [phone]. RN report to be phoned to the facility @ [phone]. NS team informed, COLST and PASRR in patient's chart and will be signed by team. Pt to go via W/C van. He will be picked up in the main lobby at 11am Wednesday 06/06. Dayami Frazier RN/[facility] #[id number]. * Dayami Frazier - 06/05/2019 1355 EST I met with the patient and his was at his bedside. Pt states that he wants the one at the [facility]. Neither could remember the name of the REANNA. Pt agreeable to be listed at all three [facility]'s [facility] And will decide based on bed offers. I have listed. I will follow up with patient when bed offers are received. Plan for d/c to [facility] as soon as tomorrow. Dayami Frazier RN/[facility] #[id number]. * Ora Gomez, PT - 06/05/2019 1240 EST [facility] Rehabilitation Therapy Acute Therapies [facility] Physical Therapy Encounter Note Date of [...] other consults recommended at this time Pager: [phone] ORA GOMEZ, PT 06/05/2019 12:40 * Dayami Frazier - 06/05/2019 1200 EST Per PT today, patient in need of REANNA. He and are agreeable. I will see and list. Dayami Frazier RN/[facility] #[id number]. * Krystyna Terrazas, OT - 06/05/2019 1112 EST [facility] Rehabilitation Therapy Acute Therapies [facility] - Occupational Therapy Encounter Note Date [...] (if pt cannot find one he has), Human Intelligence (if pt cannot find one he has), Toilet aid (Toilet tongs provided by OT), Grab bars next to toilet Pager: [phone] GERRI LAINEZ, 06/05/2019, 11:12 Krystyna Terrazas OTR/L, Pager: [phone] * Martín Gayle MD - 06/05/2019 4968 EST Neurosurgery Daily Progress Note Problems/ Low [...] Extraocular movements intact Face symmetric No drift Information Clerk Cashier 5/5 bl Elbow extension and flexion 5/5 [...] Gayle MD Neurosurgery resident 06/05/2019 5:30 Page 0701 with questions * Ora Gomez, PT - 06/04/2019 1320 EST [facility] Rehabilitation Therapy Acute Therapies [facility] Physical Therapy Encounter Note Date of [...] other consults recommended at this time Pager: [phone] ORA GOMEZ PT 06/04/2019 13:20 * Ora Gomez, PT - 06/04/2019 1023 EST [facility] Rehabilitation Therapy Acute Therapy [facility] Physical Therapy Contact Note Date of [...] subacute rehab. Full note to follow Pager [phone] ORA GOMEZ, PT 06/04/2019 10:23 * Luz Pierre, OT - 06/04/2019 0942 EST [facility] Rehabilitation Therapy [facility] Therapy [facility] Occupational Therapy Initial Evaluation Note Date [...] neurogenic claudication [M48.062]. The patient lives at [address] [place] [address] History of Present Illness/Injury Per Progress Note [...] and tisseal SURGEON = Rios Ahumada MD GROUNDSKEEPER PORTER = Good Small MD ANESTHESIA = GETA [...] reported having a commode, shower chair and donor center technician but was unsure where they were. ) Dressing/Grooming/Feeding Equipment: Dressing stick, Human Intelligence, Sock aid Mobility Equipment Mobility Equipment: Cane, [...] homes however he will be moving into [facility] upon initial DC. Prior Level of Function Prior Level of Function Comment: Pt reported modified indpendence with BADLs. Pt used adapative equipment (sock aid, dressing stick, etc) to dress himself. Pt uses a rolling walker to mobilize as of recently. 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 Pt reported [...] Past Medical History: Diagnosis Date ??? A-fib ([facility]) dx in 2014, controlled well ??? 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 OK ALLOGRAFT FOR SPINE SURGERY ONLY STRUCTURAL N/A 05/31/2019 . performed by Caleb Ahumada MD at [facility] OR ??? OK ARTHRODESIS POSTERIOR/POSTEROLATERAL LUMBAR N/A 05/31/2019 lumbar laminectomy L1-2 through L4-5, L3-5 instrumented fusion with the use or possible use of allograft performed by Caleb Ahumada MD at [facility] OR ? ? OK LAMINECTOMY,>2 SGMT,LUMBAR N/A 05/31/2019 . performed by Caleb Ahumada MD at [facility] OR ??? OK POSTERIOR SEGMENTAL INSTRUMENTATION 3-6 VRT SEG N/A 05/31/2019 . performed by Caleb Ahumada MD at [facility] OR ??? OK SPINE FUSN,POST TECH,EA ADDNL SGMT N/A 05/31/2019 . 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 Sam was found to be appropriate for skilled acute OT services after presenting to [facility] s/pL1-L5 posterior decompression, L3-L5 instrumented [...] Factors: Unsafe Goals: Short Term Goals: N/A Manager Of Regulatory Affairs Goals: Care Home Goal Time Frame Manager Of Regulatory Affairs Goal Time Frame: 1-2 weeks Care Home Goal 1 Goal: Will perform functional transfers to/from varying surfaces modified I to perform BADL or other functional activities. Care Home Goal 2 Goal: Will perform LB dressing/self-care modified I. Care Home Goal 3 Goal: Will perform UB dressing/self-care modified I. Care Home Goal 4 Goal: Will perform toileting tasks min contact A. Manager Of Regulatory Affairs Goal 5 Goal: Will recall and follow post surgery precautions without verbal reminders during OT sessions. Manager Of Regulatory Affairs Goal 6 Goal: Will verbalize understanding of any OT recommendations. Plan: Necessity: Occupational therapy will be provided by the occupational therapist and/or hospital aides and assistants teacher when medically appropriate Active Engagement: Activity tolerance, [...] Grab bars next to toilet Dressing/Grooming/Feeding Equipment: Human Intelligence VADIM TORO, 06/04/2019, 10:35 LUZ PIERRE OT06/04/201914:09 Pager: [phone] * Martín Gayle MD - 06/04/2019 0434 [...] Extraocular movements intact Face symmetric No drift Information Clerk Cashier 5/5 bl Elbow extension and flexion 5/5 [...] Gayle MD Neurosurgery resident 06/04/2019 4:34 Page 5932 with questions * Martín Gayle MD - [...] Extraocular movements intact Face symmetric No drift Information Clerk Cashier 5/5 bl Elbow extension and flexion 5/5 [...] Gayle MD Neurosurgery resident 06/03/2019 5:01 Page 5814 with questions * Ora Gomez, PT - 06/02/2019 0903 EST [facility] Rehabilitation Therapy Acute Therapy [facility] Physical Therapy Contact Note Date of Service: 06/02/2019 PT attempted to see Mr. Sam at 0900. He is currently in the bathroom. Per discussion with Nursing, he required one assist for bed mobility and ambulation to with RW PT will follow up later today Pager [phone] ORA GOMEZ PT 06/02/2019 9:03 * Ora Gomez PT - 06/02/2019 0835 EST [facility] Rehabilitation Therapy Acute Therapy [facility] Initial Evaluation Note Date of [...] neurogenic claudication [M48.062] The patient lives at [address] [place] [address] History of Present Illness / Injury Current [...] plans to stay at her house in [place] during his recovery General Prior Level of [...] Past Medical History: Diagnosis Date ??? A-fib ([facility]) dx in 2014, controlled well [...] SURGERY 12/2018 cevical spondylosis with myelopathy ??? OK ALLOGRAFT FOR SPINE SURGERY ONLY STRUCTURAL N/A 05/31/2019 . performed by Caleb Ahumada MD at [facility] OR ??? OK ARTHRODESIS POSTERIOR/POSTEROLATERAL LUMBAR N/A 05/31/2019 lumbar laminectomy L1-2 through L4-5, L3-5 instrumented fusion with the use or possible use of allograft performed by Caleb Ahumada MD at [facility] OR ? ? OK LAMINECTOMY,>2 SGMT,LUMBAR N/A 05/31/2019 . performed by Caleb Ahumada MD at [facility] OR ??? OK POSTERIOR SEGMENTAL INSTRUMENTATION 3-6 VRT SEG N/A 05/31/2019 . performed by Caleb Ahumada MD at [facility] OR ??? OK SPINE FUSN,POST TECH,EA ADDNL SGMT N/A 05/31/2019 . performed by Caleb Ahumada MD at [facility] OR Medications Current Medications: Current [...] During therapy session, After therapy session By: [id number] communication About Mobility and Gait: Mobility status, [...] 2-3 days. He may benefit from Home Ppio PT services pending progress Short-Term Goals:na Long-Term Goals: Care Home Goal Time Frame: 2 days to [...] by the physical therapist and/or physical therapist tutoring assistant when medically appropriate Pt will benefit [...] Recommended Comments: pt has necessary equipment Pager: [phone] ORA GOMEZ PT 06/02/2019 13:59 * Martín [...] symmetric Facial sensation grossly intact No drift Information Clerk Cashier 5/5 bl Elbow extension and flexion 5/5 [...] Gayle MD Neurosurgery resident 06/02/2019 5:10 Page 4550 with questions * Cristy Mckay RN - 06/01/2019 8406 EST Pt POD1 s/p L1-5 posterior decomp, L3-5 instrumented fusion, and dural tear repair, dry drsg c/d/i.Pt only tolerating raising HOB to 55 degrees so far, willing to try higher tomorrow. Pt rates lowerback pain at 7/10 consistently. Pt has class III tele orders for a-fib monitoring, required IV metoprolol previous night. #[id number] paged about need to renew or d/c tele and about new concern of L. Hand swelling after pulling out leaky IV. MD Resendiz d/c'd tele orders--notify [id number] if HR sustains in 120s-130s. assessed pt's [...] Health care treatment directive, Durable power of litigation attorney for healthcare Copy in Chart: Yes, previous copy on file @ [facility] DIRECTIVES FOR FINANCES: Directive For Finances: No TRANSPORTATION: Transportation: Family, Self CULTURAL, SYNAGOGUE and/or LANGUAGE factors affecting health care/discharge planning: [...] Provider: [id number] - [place], [place] - [address] [facility] [address] [place] [address] Home Health: Other: POST HOSPITAL TRANSITION PLAN: Patient will plan to discharge to his second house where his spouse lives. She will be his transportation and main source of support while recovering. Spouse lives at [address] [facility] [address] and patient will be going to this address after surgery and receiving home health services through [facility]. Patient has necessary DME, new [...] symmetric Facial sensation grossly intact No drift Information Clerk Cashier 5/5 bl Elbow extension and flexion 5/5 [...] Gomes MD Neurosurgery resident 06/01/2019 9:49 Page 4469 with questions * Ankita Tran RN - [...] symmetric Facial sensation grossly intact No drift Information Clerk Cashier 5/5 bl Elbow extension and flexion 5/5 [...] MARROQUIN MD Neurosurgery resident 05/31/2019 8:38 Page 3320 with questions documented in this encounter H&P [...] Martinez MD 05/31/2019 7:00 Source Note - RAILWAY HEAD TENDER, SCAN 2 - 05/24/2019 16:30 EST documented in this encounter OR Notes * OR Surgeon - Caleb Ahumada MD - 05/31/2019 0000 EST OPERATIVE REPORT SERVICE DATE: 05/31/2019 SURGEON: Robi Ahumada MD GROUNDSKEEPER PORTER: Good Small MD PROCEDURES: 1. Spinal image [...] and prep performed surgical planning on the Bank[employer] workstation. I then scrubbed and reenteredthe field and tested points, confirming a satisfactory registration. Starting on the right side at L3, a submersible pilot hole was drilled and a pedicle [...] / S Rios Ahumada MD cn Confirmation: [id number] Dictation ID: [id number] * Preprocedure Instructions - Tamy Corrales RN [...] Goal This Shift: Pt to discharge to [facility] today Note: Nursing Discharge Note D: Patient noted with discharge orders to: [facility]. A: Belongings collected and sent home with patient. Report called to Krystal at [facility] on the Rehab unit. R: Pt left [...] - Daniele Del Castillo RN - 06/01/2019 9677 EST Problem: Daily Care Plan Goals Goal: [...] and tisseal SURGEON = Rios Ahumada MD GROUNDSKEEPER PORTER = Good Small MD ANESTHESIA = GETA COMPLICATIONS = Durotomy FINDINGS = Bony and ligamentous stenosis EBL = 450 IVF = See anesthesia record UOP = See anesthesia record SPECIMENS/CULTURES = None DRAINS = None SKIN = Nylon DISPO = PACU then Floor HOB flat, Bedrest until tomorrow AM, Logroll okay Good Small MD Neurosurgery resident 05/31/2019 15:19 Page 7329 with questions documented in this encounter Plan [...] 9:05 EST) 06/09/2019 9:05 EST Scan 2 Crown Pouncer PROCEDURE/MINOR JACKY GICAL ORDERABLES * (ABNORMAL) COMPLETE BLOOD COUNT AND DIFFERENTIAL (06/06/2019 6:41 EST) WBC 6.40 4.00 - 10.40 K/cmm 06/06/2019 7:01 [facility] RBC 2.72(L) 4.36 - 5.78 M/cmm 06/06/2019 7:01 [facility] Hemoglobin 8.3(L) 13.8 - 17.3 gm/dL 06/06/2019 7:01 [facility] HCT 24.1(L) 39.5 - 50.2 % 06/06/2019 7:01 [facility] MCV 89 81 - 95 fl 06/06/2019 7:01 [facility] MCH 30.5 27.6 - 33.0 pg 06/06/2019 7:01 [facility] MCHC 34.4 32.8 - 36.4 gm/dL 06/06/2019 7:01 [facility] RDW-CV 13.9 <14.2 % 06/06/2019 7:01 [facility] RDW-SD 44.9 <46.0 fl 06/06/2019 7:01 [facility] PLT 269 141 - 377 K/cmm 06/06/2019 7:01 [facility] MPV 9.6 9.5 - 12.7 fl 06/06/2019 7:01 [facility] % Neutrophils 64.5 % 06/06/2019 7:01 [facility] % Lymphocytes 19.8 % 06/06/2019 7:01 [facility] % Monocytes 13.3 % 06/06/2019 7:01 [facility] % Eosinophils 1.3 % 06/06/2019 7:01 [facility] % Basophils 0.2 % 06/06/2019 7:01 [facility] % Immature Grans 0.9 % 06/06/20 19 7:01 [facility] Absolute Neutrophils 4.13 2.20 - 8.85 K/cmm 06/06/2019 7:01 [facility] Absolute Lymphocytes 1.27 1.09 - 3.30 K/cmm 06/06/2019 7:01 [facility] Absolute Monocytes 0.85(H) 0.10 - 0.80 K/cmm 06/06/2019 7:01 [facility] Absolute Eosinophils 0.08 0.03 - 0.61 K/cmm 06/06/2019 7:01 [facility] ABS Basophils 0.01 0.01 - 0.11 K/cmm 06/06/2019 7:01 [facility] Absolute Immature Grans 0.06 0.00 - 0.06 K/cmm 06/06/2019 7:01 [facility] Type of Differential: Auto 06/06/2019 7:01 [facility] Blood VENOUS BLOOD / Unknown Venipuncture / Unknown 06/06/2019 6:41 EST 06/06/2019 6:54 EST Murray Gomes MD PACKAGES & DNA PROBE ORDERABLES [facility] [address] [place] [address] * (ABNORMAL) ELECTROLYTES (06/06/2019 6:41 EST) Sodium 134(L) 136 - 145 mEq/L 06/06/2019 7:19 [facility] Potassium 3.6 3.5 - 5.0 mEq/L 06/06/2019 7:19 [facility] Chloride 99 96 - 110 mEq/L 06/06/2019 7:19 [facility] CO2 Total 28 22 - 32 mEq/L 06/06/2019 7:19 [facility] Blood VENOUS BLOOD / Unknown Venipuncture / Unknown 06/06/2019 6:41 EST 06/06/2019 6:54 EST Murray Gomes MD CHEMISTRY & BLO OD GAS ORDERABLES [facility] [address] [place] [address] * ECG REPORT - SCANNED (06/05/2019 14:40 EST) 06/05/2019 14:4 0 EST Scan 2 Crown Pouncer PROCEDURE/MINOR JACKY GICAL ORDERABLES * (ABNORMAL) COMPLETE BLOOD COUNT AND DIFFERENTIAL (06/03/2019 5:29 EST) WBC 10.99(H) 4.00 - 10.40 K/cmm 06/03/2019 6:24 [facility] RBC 2.98(L) 4.36 - 5.78 M/cmm 06/03/2019 6:24 [facility] Hemoglobin 8.8(L) 13.8 - 17.3 gm/dL 06/03/2019 6:24 [facility] HCT 26.2(L) 39.5 - 50.2 % 06/03/2019 6:24 [facility] MCV 88 81 - 95 fl 06/03/2019 6:24 [facility] MCH 29.5 27.6 - 33.0 pg 06/03/2019 6:24 [facility] MCHC 33.6 32.8 - 36.4 gm/dL 06/03/2019 6:24 [facility] RDW-CV 13.5 <14.2 % 06/03/2019 6:24 [facility] RDW-SD 43.8 <46.0 fl 06/03/2019 6:24 [facility] PLT 149 141 - 377 K/cmm 06/03/2019 6:24 [facility] MPV 10.9 9.5 - 12.7 fl 06/03/2019 6:24 [facility] % Neutrophils 78.6 % 06/03/2019 6:24 [facility] % Lymphocytes 12.5 % 06/03/2019 6:24 [facility] % Monocytes 7.8 % 06/03/2019 6:24 [facility] % Eosinophils 0.4 % 06/03/2019 6:24 [facility] % Basophils 0.1 % 06/03/2019 6:24 [facility] % Immature Grans 0.6 % 06/03/20 19 6:24 [facility] Absolute Neutrophils 8.64 2.20 - 8.85 K/cmm 06/03/2019 6:24 [facility] Absolute Lymphocytes 1.37 1.09 - 3.30 K/cmm 06/03/2019 6:24 [facility] Absolute Monocytes 0.86(H) 0.10 - 0.80 K/cmm 06/03/2019 6:24 [facility] Absolute Eosinophils 0.04 0.03 - 0.61 K/cmm 06/03/2019 6:24 [facility] ABS Basophils 0.01 0.01 - 0.11 K/cmm 06/03/2019 6:24 [facility] Absolute Immature Grans 0.07(H) 0.00 - 0.06 K/cmm 06/03/2019 6:24 [facility] Type of Differential: Auto 06/03/2019 6:24 [facility] Blood VENOUS BLOOD / Unknown Venipuncture / Unknown 06/03/2019 5:29 EST 06/03/2019 6:11 EST Good Small MD PACKAGES & DNA PROB E ORDERABLES [facility] [address] [place] [address] * (ABNORMAL) CREATININE (06/03/2019 5:29 EST) Creatinine 0.64(L) 0.66 - 1.25 mg/dL 06/03/2019 6:49 [facility] eGFR 95 >60 mL/min/1.7 3m2 06/03/2019 6:49 [facility] Comment:eGFR calculated tio plascencia CKD-EPI equation for non- Americans. Multiply eGFR by 1.16 for patients. Blood VENOUS BLOOD / Unknown Venipuncture / Unknown 06/03/2019 5:29 EST 06/03/2019 6:19 EST Good Small MD CHEMISTRY & BLOOD G ORDERABLES Performing Organization Address [facility] de Phone Number [facility] [address] [place] [address] * BUN (06/03/2019 5:29 EST) BUN 15 10 - 26 mg/dL 06/03/2019 6:49 [facility] Blood VENOUS BLOOD / Unknown Venipuncture / Unknown 06/03/2019 5:29 EST 06/03/2019 6:19 EST Good Small MD CHEMISTRY & BLOOD G ORDERABLES Performing Organization Address [facility] Phone Number [facility] [address] [place] [address] * (ABNORMAL) ELECTROLYTES (06/03/2019 5:29 EST) Sodium 128(L) 136 - 145 mEq/L 06/03/2019 6:49 [facility] Potassium 3.6 3.5 - 5.0 mEq/L 06/03/2019 6:49 [facility] Chloride 95(L) 96 - 110 mEq/L 06/03/2019 6:49 [facility] CO2 Total 30 22 - 32 mEq/L 06/03/2019 6:49 [facility] Blood VENOUS BLOOD / Unknown Venipuncture / Unknown 06/03/2019 5:29 EST 06/03/2019 6:19 EST Good Small MD CHEMISTRY & BLOOD G ORDERABLES Performing Organization Address [facility] de Phone Number [facility] [address] [place] [address] * XR LUMBAR SPINE 2-3 VIEWS (06/02/2019 [...] andagree with the findings. Alicia Marroquin MD [facility] ORDERABLES * (ABNORMAL) COMPLETE BLOOD COUNT AND DIFFERENTIAL (06/02/2019 5:35 EST) WBC 13.38(H) 4.00 - 10.40 K/cmm 06/02/2019 6:35 EST [facility] RBC 3.22(L) 4.36 - 5.78 M/cmm 06/02/2019 6:35 [facility] Hemoglobin 9.7(L) 13.8 - 17.3 gm/dL 06/02/2019 6:35 [facility] HCT 28.7(L) 39.5 - 50.2 % 06/02/2019 6:35 [facility] MCV 89 81 - 95 fl 06/02/2019 6:35 [facility] MCH 30.1 27.6 - 33.0 pg 06/02/2019 6:35 [facility] MCHC 33.8 32.8 - 36.4 gm/dL 06/02/2019 6:35 [facility] RDW-CV 13.9 <14.2 % 06/02/2019 6:35 [facility] RDW-SD 45.2 <46.0 fl 06/02/2019 6:35 [facility] PLT 143 141 - 377 K/cmm 06/02/2019 6:35 [facility] MPV 11.2 9.5 - 12.7 fl 06/02/2019 6:35 [facility] % Neutrophils 80.3 % 06/02/2019 6:35 [facility] % Lymphocytes 10.3 % 06/02/2019 6:35 [facility] % Monocytes 8.7 % 06/02/2019 6:35 [facility] % Eosinophils 0.1 % 06/02/2019 6:35 [facility] % Basophils 0.1 % 06/02/2019 6:35 [facility] % Immature Grans 0.5 % 06/02/20 19 6:35 [facility] Absolute Neutrophils 10.73(H) 2.20 - 8.85 K/cmm 06/02/2019 6:35 [facility] Absolute Lymphocytes 1.38 1.09 - 3.30 K/cmm 06/02/2019 6:35 [facility] Absolute Monocytes 1.17(H) 0.10 - 0.80 K/cmm 06/02/2019 6:35 [facility] Absolute Eosinophils 0.01(L) 0.03 - 0.61 K/cmm 06/02/2019 6:35 [facility] ABS Basophils 0.02 0.01 - 0.11 K/cmm 06/02/2019 6:35 [facility] Absolute Immature Grans 0.07(H) 0.00 - 0.06 K/cmm 06/02/2019 6:35 [facility] Type of Differential: Auto 06/02/2019 6:35 [facility] Blood VENOUS BLOOD / Unknown Venipuncture / Unknown 06/02/2019 5:35 EST 06/02/2019 6:21 EST Good Small MD PACKAGES & DNA PROB E ORDERABLES Performing Organization Address [facility] de Phone Number [facility] [address] [place] [address] * CREATININE (06/02/2019 5:35 EST) Creatinine 0.84 0.66 - 1.25 mg/dL 06/02/2019 6:55 [facility] eGFR 85 >60 mL/min/1.7 3m2 06/02/2019 6:55 [facility] Comment:eGFR calculated tio plascencia CKD-EPI equation for non- Americans. Multiply eGFR by 1.16 for patients. Blood VENOUS BLOOD / Unknown Venipuncture / Unknown 06/02/2019 5:35 EST 06/02/2019 6:21 EST Good Small MD CHEMISTRY & BLOOD G ORDERABLES Performing Organization Address [facility] Co de Phone Number [facility] [address] [place] [address] * BUN (06/02/2019 5:35 EST) BUN 16 10 - 26 mg/dL 06/02/2019 6:55 [facility] Blood VENOUS BLOOD / Unknown Venipuncture / Unknown 06/02/2019 5:35 EST 06/02/2019 6:21 EST Good Small MD CHEMISTRY & BLOOD G ORDERABLES Performing Organization Address [facility] Co de Phone Number [facility] [address] [place] [address] * (ABNORMAL) ELECTROLYTES (06/02/2019 5:35 EST) Pathologist [facility] Sodium 129(L) 136 - 145 mEq/L 06/02/2019 6:55 [facility] Potassium 4.0 3.5 - 5.0 mEq/L 06/02/2019 6:55 [facility] Chloride 96 96 - 110 mEq/L 06/02/2019 6:55 [facility] CO2 Total 28 22 - 32 mEq/L 06/02/2019 6:55 [facility] Blood VENOUS BLOOD / Unknown Venipuncture / Unknown 06/02/2019 5:35 EST 06/02/2019 6:21 EST Good Small MD CHEMISTRY & BLOOD G ORDERABLES Performing Organization Address [facility] de Phone Number [facility] [address] [place] [address] * (ABNORMAL) COMPLETE BLOOD COUNT AND DIFFERENTIAL (06/01/2019 5:24 EST) Pathologist [facility] WBC 10.88(H) 4.00 - 10.40 K/cmm 06/01/2019 6:02 [facility] RBC 3.43(L) 4.36 - 5.78 M/cmm 06/01/2019 6:02 [facility] Hemoglobin 10.3(L) 13.8 - 17.3 gm/dL 06/01/2019 6:02 [facility] HCT 30.5(L) 39.5 - 50.2 % 06/01/2019 6:02 [facility] MCV 89 81 - 95 fl 06/01/2019 6:02 [facility] MCH 30.0 27.6 - 33.0 pg 06/01/2019 6:02 [facility] MCHC 33.8 32.8 - 36.4 gm/dL 06/01/2019 6:02 [facility] RDW-CV 14.3(H) <14.2 % 06/01/2019 6:02 [facility] RDW-SD 46.1(H) <46.0 fl 06/01/2019 6:02 [facility] PLT 134(L) 141 - 377 K/cmm 06/01/2019 6:02 [facility] MPV 11.4 9.5 - 12.7 fl 06/01/2019 6:02 [facility] % Neutrophils 75.8 % 06/01/2019 6:02 [facility] % Lymphocytes 12.2 % 06/01/2019 6:02 [facility] % Monocytes 11.5 % 06/01/2019 6:02 [facility] % Eosinophils 0.0 % 06/01/2019 6:02 [facility] % Basophils 0.1 % 06/01/2019 6:02 [facility] % Immature Grans 0.4 % 06/01/20 19 6:02 [facility] Absolute Neutrophils 8.25 2.20 - 8.85 K/cmm 06/01/2019 6:02 [facility] Absolute Lymphocytes 1.33 1.09 - 3.30 K/cmm 06/01/2019 6:02 [facility] Absolute Monocytes 1.25(H) 0.10 - 0.80 K/cmm 06/01/2019 6:02 [facility] Absolute Eosinophils 0.00(L) 0.03 - 0.61 K/cmm 06/01/2019 6:02 [facility] ABS Basophils 0.01 0.01 - 0.11 K/cmm 06/01/2019 6:02 [facility] Absolute Immature Grans 0.04 0.00 - 0.06 K/cmm 06/01/2019 6:02 [facility] Type of Differential: Auto 06/01/2019 6:02 [facility] Blood VENOUS BLOOD / Unknown Venipuncture / Unknown 06/01/2019 5:24 EST 06/01/2019 5:51 EST Good Small MD PACKAGES & DNA PROB E ORDERABLES Performing Organization Address [facility] de Phone Number [facility] [address] [place] [address] * CREATININE (06/01/2019 5:24 EST) Creatinine 0.79 0.66 - 1.25 mg/dL 06/01/2019 6:18 [facility] eGFR 87 >60 mL/min/1.7 3m2 06/01/2019 6:18 [facility] Comment:eGFR calculated tio plascencia CKD-EPI equation for non- Americans. Multiply eGFR by 1.16 for patients. Blood VENOUS BLOOD / Unknown Venipuncture / Unknown 06/01/2019 5:24 EST 06/01/2019 5:51 EST Good Small MD CHEMISTRY & BLOOD G ORDERABLES Performing Organization Address [facility] de Phone Number [facility] [address] [place] [address] * BUN (06/01/2019 5:24 EST) BUN 15 10 - 26 mg/dL 06/01/2019 6:18 [facility] Blood VENOUS BLOOD / Unknown Venipuncture / Unknown 06/01/2019 5:24 EST 06/01/2019 5:51 EST Good Small MD CHEMISTRY & BLOOD G ORDERABLES Performing Organization Address [facility] de Phone Number [facility] [address] [place] [address] * (ABNORMAL) ELECTROLYTES (06/01/2019 5:24 EST) Sodium 134(L) 136 - 145 mEq/L 06/01/2019 6:18 [facility] Potassium 4.1 3.5 - 5.0 mEq/L 06/01/2019 6:18 [facility] Chloride 102 96 - 110 mEq/L 06/01/2019 6:18 [facility] CO2 Total 27 22 - 32 mEq/L 06/01/2019 6:18 EST [facility] Blood VENOUS BLOOD / Unknown Venipuncture / Unknown 06/01/2019 5:24 EST 06/01/2019 5:51 EST Good Small MD CHEMISTRY & BLOOD G ORDERABLES [facility] [address] [place] [address] * XR LUMBAR SPINE 1 VIEW (05/31/2019 [...] 10:29 EST This is a non-reportable exam. [facility] ORDERABLES * XR [...] andagree with the findings. Caleb Ahumada MD [facility] ORDERABLES * XR LUMBAR [...] the L2 spinous process, directed towards the [id number] and L3 vertebral body. IMPRESSION Intraoperative localization Dr. Wang reviewed these findings with Dr. Ahumada on 05/31/2019 at 8:18AM. I have personally reviewed the images and the above interpretation andagree with the findings. Caleb Ahumada MD [facility] ORDERABLES * TYPE AND SCREEN (05/31/2019 6:35 EST) ABO A 05/31/2019 8:35 EST [facility] Rh Factor Positive 05/31/2019 8:35 EST [facility] Antibody Screen Negative 05/31/2019 8:35 EST [facility] Specimen Expires: 06/03/2019 @ 23:59 05/31/2019 8:35 EST [facility] Blood VENOUS BLOOD / Unknown Venipuncture / Unknown 05/31/2019 6:35 EST 05/31/2019 6:35 EST Chencho Tarango MD BLOOD BANK TESTS Performing Organization Address City/State/[facility] Co [place] Phone Number [facility] [address] [place] [address] documented in this encounter Visit Diagnoses Diagnosis [...] Patient/family refused) 1051 (Not Given - Provider: Hguo Mckeon RN - Reason: Patient/family refused)2012 (Not [...] Owen, LAUREL) 0123 (See Alternative - Provider: eYlena Owen, LAUREL)1025 (See Alternative - Provider: Hugo [...] 40 mg 1 11/2018 polyethylene glycol 3350 ([place] RALAX) packet 17 g 1 06/02/2019 senna [...] 05/2806/04/2019 documented in this encounter Care Teams Star Route Mail Driver Relationship Specialty Start Date End Date Garcia Gonzales MD [address] [place] [address] PCP - General 09/03/09 documented as of this encounter
--- OUTSIDE RECORDS SUMMARY | 2024-02-08 21:55 | XMS_ITS | Encounter Summary ---
Author Organization [facility] Address [address] [place] [address] Care Team Providers Care Flow Trader Name Role Phone Garcia Gonzales MD Primary Care Provider [phone] Reason for Visit * Reason Onset Date Comments Appointment Related 08/09/2019 Encounter Details Date Type Department Care Team (Late st Contact Info) Description 08/09/[address] [address] Caleb Ahumada MD [address] [place] [address], [address] [place] [phone] Appointment Related Social History Tobacco Use Types [...] having any questions at this time. Location: [facility] Provider: Rios Ahumada MD Date: 09/05/19 Time: 11:30am documented in this encounter Plan of Treatment Not on file documented as of this encounter Visit Diagnoses Not on filedocumented in this encounter Care Teams Flow Trader Relationship Specialty Start Date End Date Garcia Gonzales MD [address] [place] [address] PCP - General 09/03/09 documented as of this encounter
--- OUTSIDE RECORDS SUMMARY | 2024-02-08 21:55 | XMS_ITS | Encounter Summary ---
Author Organization [facility] Address [address] [place] [address] Care Team Providers Care Commercial Development Manager Name Role Phone Garcia Gonzales MD Primary Care Provider [phone] Reason for Visit * Reason Onset Date Comments Appointment Related 10/02/2020 Encounter Details Date Type Department Care Team (Late st Contact Info) Description 10/02/2020 Telephone [facility] - [address] [address] Caleb Ahumada MD [address] [place] [address], [address] [place] [phone] Appointment Related Social History Tobacco Use Types Packs/Day Years Used Date Smoking Tobacco: Former Cigarettes 3 15 1 403 - 1977 Smokeless Tobacco: Never Comments:quit 39 [...] had not. Will send MRI order to [facility]. Asked that once patient is scheduled for MRI that he calland sched a telemedicine f/u with Dr. Ahumada. documented in this encounter Plan of Treatment Not on file documented as of this encounter Visit Diagnoses Not on filedocumented in this encounter Care Teams Commercial Development Manager Relationship Specialty Start Date End Date Garcia Gonzales MD [address] [place] [address] PCP - General 09/03/09 documented as of this encounter
--- OUTSIDE RECORDS SUMMARY | 2024-02-08 21:55 | XMS_ITS | Encounter Summary ---
Author Organization [facility] Address [address] [place] [address] Care Team Providers Care Grocery Deliverer Name Role Phone Garcia Gonzales MD Primary Care Provider [phone] Encounter Details Date Type Department Care Team (Late st Contact Info) Description 09/07/2019 Lab Requisition [facility] Pathology & Laboratory Medicine - [address] [address] Unknown, Provider, Social History Tobacco Use Types [...] 0.0 - 6.5 ng/mL 09/08/2019 10:06 EDT [facility] Blood VENOUS BLOOD / Unknown 09/06/2019 14:30 EDT 09/07/2019 15:59 EDT Narrative [facility] - 09/08/2019 10:06 EDT NOTE: Serum PSA concentration should not be interpreted as absolute evidence for the presence or absence of malignant disease. Assayed on Siemens joizIA YellowBrckaur XPT using chemiluminescent technology.??Values obtained by using different assay methods cannot be used interchangeably. Provider Unknown CHEMISTRY & BLOOD GA S ORDERABLES [facility] [address] [place] [address] documented in this encounter Visit Diagnoses Not on filedocumented in this encounter Care Teams Grocery Deliverer Relationship Specialty Start Date End Date Garcia Gonzales MD [address] [place] [address] PCP - General 09/03/09 documented as of this encounter
--- OUTSIDE RECORDS SUMMARY | 2024-02-08 21:55 | XMS_ITS | Encounter Summary ---
Author Organization [facility] Address [address] [place] [address] Care Team Providers Care Seamless Hosiery Knitter Name Role Phone Garcia Gonzales MD Primary Care Provider [phone] Encounter Details Date Type Department Care Team (Late st Contact Info) Description 01/22/2020 Lab Requisition [facility] Pathology & Laboratory Medicine - [address] [address] Outr Resulting Lab, Provider Social History Tobacco Use Types Packs/Day Years Used Date Smoking Tobacco: Former Cigarettes 3 15 1 203 - 0044 Smokeless Tobacco: Never Comments:quit 41 years ago [...] 19 - 88 pg/mL 01/23/2020 9:16 EDT [facility] Blood VENOUS BLOOD / Unknown 01/22/2020 9:02 EDT 01/22/2020 15:57 EDT Provider Outr Resulting Lab CHEMISTRY & BLOOD GAS ORDERABLES [facility] [address] [place] [address] documented in this encounter Visit Diagnoses Not on filedocumented in this encounter Care Teams Seamless Hosiery Knitter Relationship Specialty Start Date End Date Garcia Gonzales MD [address] [place] [address] PCP - General 09/03/09 documented as of this encounter
--- OUTSIDE RECORDS SUMMARY | 2024-02-08 21:55 | XMS_ITS | Encounter Summary ---
Author Organization [facility] Address [address] [place] [address] Care Team Providers Care Stain Wiper Name Role Phone Garcia Gonzales MD Primary Care Provider [phone] Reason for Referral * Radiology Services (Routine) - Closed Specialty Diagnoses / Procedures Referred By Contac t Referred To Contact Diagnoses Lumbar stenosis with neurogenic claudication Procedures XR ENTIRE SPINE 2-3 VIEWS Caleb Ahumada MD [address] [place] [phone] Referral ID Status Reason Start Date Expiration Date Visits Re quested Visits Authorized [id number] Closed 06/27/2019 1 1 Reason for Visit * Radiology Services (Routine) - Closed Specialty Diagnoses / Procedures Referred By Contac t Referred To Contact Diagnoses Lumbar stenosis with neurogenic claudication Procedures XR ENTIRE SPINE 2-3 VIEWS Caleb Ahumada MD [address] [place] [phone] Referral ID Status Reason Start Date Expiration Date Visits Re quested Visits Authorized [id number] Closed 06/27/2019 1 1 Encounter Details Date Type Department Care Team (Latest Contact Info) Description 06/27/2019 13:32 EST - 06/28/2019 23:59 EST Hospital Encounter [address] [place], [place] [phone] Lumbar stenosis with neurogenic claudication Discharge Disposition: [...] claudication documented in this encounter Care Teams Stain Wiper Relationship Specialty Start Date End Date Garcia Gonzales MD [address] [place] [address] PCP - General 09/03/09 documented as of this encounter
--- OUTSIDE RECORDS SUMMARY | 2024-02-08 21:55 | XMS_ITS | Encounter Summary ---
Author Organization [facility] Address [address] [place] [address] Care Team Providers Care Inside Sales Specialist Name Role Phone Garcia Gonzales MD Primary Care Provider [phone] Encounter Details Date Type Department Care Team (Late st Contact Info) Description 05/03/2019 Pre-Procedure Orders Encounter [facility] Neurosurgery - [address] [address] Queta Hall PA-C [address] [place] [address], [address] [place] [phone] Spinal stenosis of lumbar region, [...] Primary documented in this encounter Care Teams Inside Sales Specialist Relationship Specialty Start Date End Date Garcia Gonzales MD [address] [place] [address] PCP - General 09/03/09 documented as of this encounter
--- OUTSIDE RECORDS SUMMARY | 2024-02-08 21:55 | XMS_ITS | Encounter Summary ---
Author Organization [facility] Address [address] [place] [address] Care Team Providers Care Production Supply Equipment Tender Name Role Phone Garcia Gonzales MD Primary Care Provider Reason for Visit * Reason Comments Follow-up L3-5 fusion Encounter Details Date Type Department Care Team (Late st Contact Info) Description 07/01/2020 14:40 EST Office Visit [facility] Neurosurgery - [address] [phone] Caleb Ahumada MD [address] [place] [address], [address] [place] [phone] Cervical arthritis with myelopathy (Primary Dx) Social [...] of 5 in the deltoid, biceps, triceps, paint striping machine operator, iliopsoas, quadriceps, dorsiflexors, plantar flexors. There is [...] Primary documented in this encounter Care Teams Production Supply Equipment Tender Relationship Specialty Start Date End Date Garcia Gonzales MD [address] [place] [address] PCP - General 09/03/09 documented as of this encounter
--- OUTSIDE RECORDS SUMMARY | 2024-02-08 21:55 | XMS_ITS | Encounter Summary ---
Author Organization [facility] Address [address] [place] [address] Care Team Providers Care Brewing Director Name Role Phone Garcia Gonzales MD Primary Care Provider Reason for Visit * Reason Onset Date Comments Discuss Surgery 05/03/2019 Encounter Details Date Type Department Care Team (Late st Contact Info) Description 05/03/2019 Telephone [facility] Neurosurgery - Main [place] [address] [place] [address] Renea Petersen, LAUREL Discuss Surgery Social History [...] on filedocumented in this encounter Care Teams Brewing Director Relationship Specialty Start Date End Date Garcia Gonzales MD [address] [place], [place] [id number] PCP - General 09/03/09 documented as of this encounter
--- OUTSIDE RECORDS SUMMARY | 2024-02-08 21:55 | XMS_ITS | Encounter Summary ---
Author Organization [facility] Address [address] [place] [address] Care Team Providers Care Railroad Signal Technician Name Role Phone Garcia Gonzales MD Primary Care Provider [phone] Reason for Visit * Reason Onset Date Comments Discuss Surgery 05/08/2019 Prep for surgery on 05/10 Encounter Details Date Type Department Care Team (Late st Contact Info) Description 05/08/2019 Telephone [facility] Neurosurgery - [address] [address] Caleb Ahumada MD [address] [place] [address], [address] [place] [address] Discuss Surgery (Prep for surgery [...] given acheck in time as of yet. Rn Renal advised that the schedule is under review [...] on filedocumented in this encounter Care Teams Railroad Signal Technician Relationship Specialty Start Date End Date Garcia Gonzales MD [address] [place] [address] PCP - General 09/03/09 documented as of this encounter
--- OUTSIDE RECORDS SUMMARY | 2024-02-08 21:55 | XMS_ITS | Encounter Summary ---
Author Organization [facility] Address [address] [place] [address] Care Team Providers Care Gasket Former Name Role Phone Garcia Gonzales MD Primary Care Provider [phone] Reason for Visit * Reason Onset Date Comments Physical Therapy 06/12/2019 Encounter Details Date Type Department Care Team (Late st Contact Info) Description 06/12/2019 [facility]phone [facility] [address] [place], [place] [id number] Brigette Moser RN Physical Therapy Social History [...] suture removal. He may be reache at [phone]. documented in this encounter Plan of Treatment Not on file documented as of this encounter Visit Diagnoses Not on filedocumented in this encounter Care Teams Gasket Former Relationship Specialty Start Date End Date Garcia Gonzales MD [address] [place] [address] PCP - General 09/03/09 documented as of this encounter
--- OUTSIDE RECORDS SUMMARY | 2024-02-08 21:55 | XMS_ITS | Encounter Summary ---
Author Organization [facility] Address [address] [place] [address] Care Team Providers Care Television Engineer Name Role Phone Garcia Gonzales MD Primary Care Provider [phone] Reason for Visit * Reason Onset Date Comments Appointment Related 06/19/2020 Encounter Details Date Type Department Care Team (Late st Contact Info) Description 06/19/2020 Telephone [facility] - [address] [address] Caleb Ahumada MD [address] [place] [address], [address] [place] [phone] Appointment Related Social History Tobacco Use Types [...] Telephone Encounter - Lizz Adrian - 06/19/2020 9802 EST Confirmed the following appointment details with Nakul. He verbalized understanding and denied having any questions. 07/01/2020 - [facility] Check in at 1:40pm at registration for xrays Appointment at 2:40pm with Dr. Rios Ahumada documented in this encounter Plan of Treatment Not on file documented as of this encounter Visit Diagnoses Not on filedocumented in this encounter Care Teams Television Engineer Relationship Specialty Start Date End Date Garcia Gonzales MD [address] [place] [address] PCP - General 09/03/09 documented as of this encounter
--- OUTSIDE RECORDS SUMMARY | 2024-02-08 21:56 | XMS_ITS | Encounter Summary ---
Author Organization [facility] Address [address] [place] [address] Care Team Providers Care Mincemeat Maker Name Role Phone Garcia Gonzales MD Primary Care Provider [phone] Encounter Details Date Type Department Care Team (Latest Contact Info) Description 11/11/2018 16:08 EDT - 11/11/2018 23:59 EDT Hospital Encounter [address] [address] Unknown, Provider, Discharge Disposition: Home or Self Care Social History Tobacco Use Types Packs/Day Years Used Date Smoking Tobacco: Never Assessed Sex and Gender Information Value Date Recorded Sex Assigned at Not on file Gender Identity Male 06/01/2019 13:40 EST Sexual Orientation Not on file documented as of this encounter Discharge Disposition Disposition Code Departure Means Destination Home or Self Longterm documented in this encounter Plan of Treatment Not on file documented as of this encounter Visit Diagnoses Not on filedocumented in this encounter Care Teams Mincemeat Maker Relationship Specialty Start Date End Date Garcia Gonzales MD [address] [place] [address] PCP - General 09/03/09 documented as of this encounter
--- OUTSIDE RECORDS SUMMARY | 2024-02-08 21:56 | XMS_ITS | Encounter Summary ---
Author Organization [facility] Address [address] [place] [address] Care Team Providers Care Upper Doubler Name Role Phone Garcia Gonzales MD Primary Care Provider [phone] Encounter Details Date Type Department Care Team (Late st Contact Info) Description 01/04/2019 Pre-Procedure Orders Encounter [facility] Neurosurgery - Main [place] [address] [place], [place] [phone] Zaynab Hernández PA-C [address] [address] Cervical spondylosis with myelopathy (Primary [...] myelopathy documented in this encounter Care Teams Upper Doubler Relationship Specialty Start Date End Date Garcia Gonzales MD [address] [place] [address] PCP - General 09/03/09 documented as of this encounter
--- OUTSIDE RECORDS SUMMARY | 2024-02-08 21:56 | XMS_ITS | Encounter Summary ---
Author Organization [facility] Address [address] [place] [address] Care Team Providers Care Malted Milk Mixer Name Role Phone Garcia Gonzales MD Primary Care Provider [phone] Encounter Details Date Type Department Care Team (Late st Contact Info) Description 01/23/2005 Results Only [facility] - [facility] [address] [place] [address] Jasper Shelley, DO [address] [facility] [address] [place], [place] [phone] Social History Tobacco Use Types Packs/Day Years [...] SAM Ana Maria ? Accession #: ? [id number] ? : ? 1945 (Age: 59) ??M [...] ? Deeper sections have been examined. ??(Dr. Romero)/[facility] Document reviewed and electronically signed by: EDITH [...] specimen is entirely submitted as (B). ??(Young Vargas)/[facility] End of Report [facility] 01/23/2005 01/23/2005 15: 22 EDT Jasper Shelley DO PATHOLOGY ORDER KAYLIE [facility] [address] [place] [address] documented in this encounter Visit Diagnoses Not on filedocumented in this encounter Care Teams Malted Milk Mixer Relationship Specialty Start Date End Date Garcia Gonzales MD [address] [place], [place] [address] PCP - General 09/03/09 documented as of this encounter
--- OUTSIDE RECORDS SUMMARY | 2024-02-08 21:56 | XMS_ITS | Encounter Summary ---
Author Organization [facility] Address [address] [place] [address] Care Team Providers Care Waiter/Waitress Formal Name Role Phone Garcia Gonzales MD Primary Care Provider [phone] Encounter Details Date Type Department Care Team (Late st Contact Info) Description 11/11/2018 Results Only [facility] [phone] Dat Lopez, DO [address] [facility] [address] [place], [place] [phone] Social History Tobacco Use Types Packs/Day Years [...] LALYEDGARDOSINDY Ana Maria ? Accession #: ? [id number] ? : ? 1945 (Age: 73) ??M [...] (ASCP) 11/11/2018 4:30 PM End of Report [facility] 11/11/2018 15:5 8 EDT 11/11/2018 15:58 EDT Dat Lopez DO PATHOLOGY ORDERABLES [facility] [address] [place] [address] documented in this encounter Visit Diagnoses Not on filedocumented in this encounter Care Teams Waiter/Waitress Formal Relationship Specialty Start Date End Date Garcia Gonzales MD [address] [place] [address] PCP - General 09/03/09 documented as of this encounter
--- OUTSIDE RECORDS SUMMARY | 2024-02-08 21:56 | XMS_ITS | Encounter Summary ---
Author Organization [facility] Address [address] [place] [address] Care Team Providers Care Factory Machine Computer Operator Name Role Phone Garcia Gonzales MD Primary Care Provider [phone] Reason for Visit * Reason Onset Date Comments Medication Questions 01/23/2019 Post-OP Follow Up 01/23/2019 Encounter Details Date Type Department Care Team (Late st Contact Info) Description 01/23/2019 Telephone [facility] Neurosurgery - Main [address] [address] Renea Petersen RN Medication Questions [...] that the new script was available for picking supervisor. Patient was advised that kathrine can be [...] and see how he does and not picking supervisor the new script that is fine but [...] documented as of this encounter Care Teams Factory Machine Computer Operator Relationship Specialty Start Date End Date Garcia Gonzales MD [address] [place] [address] PCP - General 09/03/09 documented as of this encounter
--- OUTSIDE RECORDS SUMMARY | 2024-02-08 21:56 | XMS_ITS | Encounter Summary ---
Author Organization [facility] Address [address] [place] [address] Care Team Providers Care Stave Hewer Name Role Phone Garcia Gonzales MD Primary Care Provider [phone] Reason for Visit * Reason Onset Date Comments Discuss Surgery 12/14/2018 Encounter Details Date Type Department Care Team (Late st Contact Info) Description 12/14/2018 Telephone [facility] Neurosurgery - Main [address] [address] Brigette Moser, LAUREL Discuss Surgery Social History [...] Encounter - Renea Petersen RN - 12/14/2018 6163 EDT Patient Education Topic: C7-T2 laminectomy and [...] on filedocumented in this encounter Care Teams Stave Hewer Relationship Specialty Start Date End Date Garcia Gonzales MD [address] [place] [address] PCP - General 09/03/09 documented as of this encounter
--- OUTSIDE RECORDS SUMMARY | 2024-02-08 21:56 | XMS_ITS | Encounter Summary ---
Author Organization [facility] Address [address] [place] [address] Care Team Providers Care Performance Improvement Consultant Name Role Phone Garcia Gonzales MD Primary Care Provider [phone] Encounter Details Date Type Department Care Team (Latest Contact Info) Description 06/03/2015 14:20 EST - 06/03/2015 23:59 EST Hospital Encounter [address] [address] Unknown, ProviderMD Discharge Disposition: Home or Self Care Social History Tobacco Use Types Packs/Day Years Used Date Smoking Tobacco: Never Assessed Sex and Gender Information Value Date Recorded Sex Assigned at Not on file Gender Identity Male 06/01/2019 13:40 EST Sexual Orientation Not on file documented as of this encounter Discharge Disposition Disposition Code Departure Means Destination Home or Self [facility] documented in this encounter Plan of Treatment Not on file documented as of this encounter Visit Diagnoses Not on filedocumented in this encounter Care Teams Performance Improvement Consultant Relationship Specialty Start Date End Date Garcia Gonzales MD [address] [place] [address] PCP - General 09/03/09 documented as of this encounter
--- OUTSIDE RECORDS SUMMARY | 2024-02-08 21:56 | XMS_ITS | Encounter Summary ---
Author Organization [facility] Address [address] [place] [address] Care Team Providers Care Legal Job Titles Name Role Phone Garcia Gonzales MD Primary Care Provider [phone] Reason for Visit * Reason Onset Date Comments Appointment Related 11/23/2018 Encounter Details Date Type Department Care Team (Late st Contact Info) Description 11/23/2018 Telephone [facility] - [address] [address] Caleb Ahumada MD [address] [place] [address], [address] [place] [phone] Appointment Related Social History Tobacco Use Types [...] appointment details with Nakul: ?? 12/08 - [facility] Check in at 9:45am MRI at 10:00am ?? 12/13 - [facility] Appt at 11:00am with Dr. Rios Ahumada ?? Nakul verbalized understanding and denied having any questions. documented in this encounter Plan of Treatment Not on file documented as of this encounter Visit Diagnoses Not on filedocumented in this encounter Care Teams Legal Job Titles Relationship Specialty Start Date End Date Garcia Gonzales MD [address] [place] [address] PCP - General 09/03/09 documented as of this encounter
--- OUTSIDE RECORDS SUMMARY | 2024-02-08 21:56 | XMS_ITS | Encounter Summary ---
Author Organization [facility] Address [address] [place] [address] Care Team Providers Care Jewelry Racker Name Role Phone Garcia Gonzales MD Primary Care Provider [phone] Reason for Visit * Reason Onset Date Comments Update 12/16/2018 Encounter Details Date Type Department Care Team (Late st Contact Info) Description 12/16/2018 Telephone [facility] Neurosurgery - [facility] [address] [place], [place] [phone] Renea Petersen, RN Update Social History Tobacco [...] Encounter - Renea Petersen RN - 12/16/2018 2524 EDT Received a call from the patient [...] on filedocumented in this encounter Care Teams Jewelry Racker Relationship Specialty Start Date End Date Garcia Gonzales MD [address] [place] [address] PCP - General 09/03/09 documented as of this encounter
--- OUTSIDE RECORDS SUMMARY | 2024-02-08 21:56 | XMS_ITS | Encounter Summary ---
Author Organization [facility] Address [address] [place] [address] Care Team Providers Care Wood Sawyer Name Role Phone Garcia Gonzales MD Primary Care Provider [phone] Reason for Visit * Reason Onset Date Comments Appointment Related 11/14/2018 Encounter Details Date Type Department Care Team (Late st Contact Info) Description 11/14/2018 Telephone [facility] Neurosurgery - [address] [address] Caleb Ahumada MD [address] [facility], [address] [place] [phone] Appointment Related Social History Tobacco Use Types [...] that we have the MRI imaging from [place] [facility]. * Telephone Encounter - Cristy Winter - 11/14/2018 1104 EDT Please call patient He has questions Does he need a prior auth from [facility] As they are the ones that referred him to Dr [place]. Also Have we received all necessary paperwork needed Along with radiology results Please call To advise documented in this encounter Plan of Treatment Not on file documented as of this encounter Visit Diagnoses Not on filedocumented in this encounter Care Teams Wood Sawyer Relationship Specialty Start Date End Date Garcia Gonzales MD [address] [place] [address] PCP - General 09/03/09 documented as of this encounter
--- OUTSIDE RECORDS SUMMARY | 2024-02-08 21:56 | XMS_ITS | Encounter Summary ---
Author Organization [facility] Address [address] [place] [address] Care Team Providers Care Key Bed Installer Name Role Phone Garcia Gonzales MD Primary Care Provider [phone] Reason for Referral * Radiology Services (Routine) - New Request Specialty Diagnoses / Procedures Referred By Contac t Referred To Contact Diagnoses Spinal stenosis of lumbar region, unspecified whether neurogenic claudication present Procedures L SPINE 4 OR MORE VIEWS Zaynab Hernández PA-C [address] [address] Referral ID Status Reason Start Date Expiration Date V isits Requested Visits Authorized [id number] New Request 11/10/2018 1 1 Reason for Visit * Reason Onset Date Comments Appointment Related 11/10/2018 Encounter Details Date Type Department Care Team (Late st Contact Info) Description 11/10/2018 Telephone [facility] Neurosurgery - Main [address] [phone] Caleb Ahumada MD 111 [facility], [address] [place] [address] Appointment Related Social History Tobacco [...] HISTORY: M48.061-Spinal stenosis, lumbar region without neurogenic [id number]; lumbar stenosis COMPARISON: Lumbar MRI outside hospital [...] HISTORY: M48.061-Spinal stenosis, lumbar region without neurogenic [id number]; lumbar stenosis COMPARISON: Lumbar MRI outside hospital [...] Primary documented in this encounter Care Teams Key Bed Installer Relationship Specialty Start Date End Date Garcia Gonzales MD [address] [place] [address] PCP - General 09/03/09 documented as of this encounter
--- OUTSIDE RECORDS SUMMARY | 2024-02-08 21:56 | XMS_ITS | Encounter Summary ---
Author Organization [facility] Address [address] [place] [address] Care Team Providers Care Financial Assistance Specialist Name Role Phone Garcia Gonzales MD Primary Care Provider [phone] Encounter Details Date Type Department Care Team (Late st Contact Info) Description 11/08/[address] [facility] [phone] Unknown, Provider, Social History Tobacco Use Types [...] on filedocumented in this encounter Care Teams Financial Assistance Specialist Relationship Specialty Start Date End Date Garcia Gonzales MD [address] [place] [address] PCP - General 09/03/09 documented as of this encounter
--- OUTSIDE RECORDS SUMMARY | 2024-02-08 21:56 | XMS_ITS | Encounter Summary ---
Author Organization [facility] Address [address] [place] [address] Care Team Providers Care Management Associate Name Role Phone Garcia Gonzales MD Primary Care Provider [phone] Reason for Visit * Reason Onset Date Comments Surgery Scheduling 12/15/2018 Encounter Details Date Type Department Care Team (Late st Contact Info) Description 12/15/2018 Telephone [facility] Neurosurgery - [address] [address] Caleb Ahumada MD [address] [place] [address], [address] [place] [phone] Surgery Scheduling Social History Tobacco Use Types [...] surgery with Dr. Ahumada on 01/18/19 at [facility]. Nakul is aware thathe will need [...] on filedocumented in this encounter Care Teams Management Associate Relationship Specialty Start Date End Date Garcia Gonzales MD [address] [place] [address] PCP - General 09/03/09 documented as of this encounter
--- OUTSIDE RECORDS SUMMARY | 2024-02-08 21:56 | XMS_ITS | Encounter Summary ---
Author Organization [facility] Address [address] [place] [address] Care Team Providers Care Rn Clinical Name Role Phone Garcia Hugo MD Primary Care Provider [phone] Reason for Referral * Radiology Services (Routine) - Receiving Office to Obtain Authorization Specialty Diagnoses / Procedures Referred By Contac t Referred To Contact Diagnoses Cervical spondylosis with myelopathy Procedures ENTIRE SPINE 2-3 VIEWS Murray Gomes MD [address] [place] [address] Referral ID Status Reason Start Date Expiration Date Visits Requested Visits Authorized [id number] Receiving Office to Obtain Authorization 01/20/2019 1 1 * Consult (Routine) - Closed Specialty Diagnoses / Procedures Referred By Contac t Referred To Contact Neurosurgery Diagnoses Cervical spondylosis with radiculopathy Murray Gomes MD [address] [place] [address] Caleb Ahumada MD [address] [facility], [address] [place] [address] Referral ID Status Reason Start Date Expiration Date V isits Requested Visits Authorized [id number] Closed Specialty Services Required 01/20/2019 1 1 [...] Cervical spondylosis with myelopathy Murray Gomes MD [address] [place] [id number] [facility] & [address] [address] Referral ID Status Reason Start Date Expiration Date Visits Requested Visits Authorized [id number] New Request Specialty Services Required 01/20/2019 1 1 Question Answer I certify that this patient is under my care and that I, or another Medicare allowed practitioner (DO TYLOR, LAW) working with me, had a yxrk-re-rrsy encounter with this patient on this date: 01/20/2019 I further certify that the oiry-sh-tayl encounter was in whole or in part [...] EDT - 01/20/2019 16:26 EDT Hospital Encounter [facility] [address] [place] [id number] Caleb Ahumada MD [address] [facility], [address] [place] [address] Cervical spondylosis with myelopathy; Cervical [...] cervical region-M48.02[ICD-10-CM] I48.91 Unspecified atrial fibrillation-I48.91[ICD-10-CM] Z79.01 penitentiary (current) use of anticoagulants-Z79.01[ICD-10-CM] Z87.891 Personal history [...] PT. The patient's incision was closed with chacorta, which require removal 2 weeks following surgery [...] EDT Post-Op Visit with Robi Ahumada MD [facility] Neurosurgery - [facility] (--) [address] [facility] [address] Follow-up appointments and procedures Amb Consult/Follow Up [...] another Medicare authorized non-physician practitioner (PA or WINDER OPERATOR) or resident working with me, had a dquu-rd-arxi encounter with this patient on this date: 01/20/2019 I further certify that the iwxu-ig-nrkw encounter was in whole or in part related to the reason thepatient needs home health care.: Yes The patient has had a hlvd-yx-bizg visit by me or one of my [...] (C5, 6) 5/5 Tricep (C6, 7) 5/5 Marketing Consultant (C8) 5/5 Interrosei (T1) 5/5 UE Strength - RIGHT Deltoid (C5) 5/5 Bicep (C5, 6) 5/5 Tricep (C6, 7) 5/5 Marketing Consultant (C8) 5/5 Interrosei (T1) 5/5 Full strength and normal sensation in the bilateral lower extremities Dressing clean and dry Assessment/ 73 year old man status post C4-C6 lateral mass screws, T1-T2 pedicle screws, C7- T2 posterior decompression. Exam stable, pain well controlled. Plan/ Q4H neuro checks Maintain [place] J collar Regular diet DC drain AAT/OOB Pain control Dispo planning, PT/OT Good Small MD Neurosurgery resident 01/20/2019 10:34 Page 2624 with questions * Navya Gracia, PT - 01/20/2019 0989 EDT [facility] Rehabilitation Therapy Main [place] [facility] Initial Evaluation/Discontinue Note Date of Service: 01/20/2019 Reason for Referral: Evaluate and treat Precautions:ambulate as tolerated, up ad roberth, miamiJ collar SUBJECTIVE: I've been using the [...] with radiculopathy, cervical region-M47.22[ICD-10-CM] The patient lives [id number] [facility] [address] Home environment Lives: with family Caregiver Support: 24-hour assist Equipment Available: Rolling walker Home Environment: house Home Layout: One story. 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 Tip intact. No complications. Murray Gomes MD Neurosurgery Resident 01/20/2019 9:51 Neurosurgery Service Pager [phone] * Daily Alexandre OT - 01/20/2019 0816 EDT [facility] Rehabilitation Therapy Acute Therapies [facility] Occupational Therapy Initial/Discontinue Evaluation Note Date of Service: 01/20/2019 Reason for Referral: Evaluate and treat Precautions: [place] J and Wear at all times except [...] with radiculopathy, cervical region-M47.22[ICD-10-CM] The patient lives [id number] [facility] [address] History of Present Illness/Injury: Pt admitted for [...] time GOALS: Short Term Goals: n/a ?? Half-Way Goals: Set and met Pt will use long handled equipment for lower body dressing Pt will demonstrate ability to don shirt with min contact A of 1 Pt will verbalize understanding of spinal precautions and impact on adls PLAN: Intervention: Discontinue occupational therapy at [facility] acute care. Further Data: none Patient/Family Education: Adapted ADLs Recommended Discharge Destination: Home with family Recommended Discharge Services: No occupational therapy follow-up services at this time Recommended Discharge Equipment: Shower chair and Sock-aide Pager: [phone] Daily Alexandre OT, 01/20/2019, 8:16 * Cristy Jordan - 01/19/2019 1447 EDT Spoke with pt re: Advanced Directive and his code status. He DOES wish to be full code. 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 No changes in his AD. LAUREL AgrawalCCM #[id number] * Cristy Jordan - 01/19/2019 1410 EDT [...] Chart: Yes, previous copy on file @ [facility] DIRECTIVES FOR FINANCES: TRANSPORTATION: Transportation: Family, Self CULTURAL, SIKHISM and/or LANGUAGE factors affecting health care/discharge planning: Spiritual/Cultural Requests: None Any factors affecting health care/discharge planning?: No Insurance in Place: Yes Medical Insurance: Yes Type of insurance: Medicare, Supplemental plan to Medicare Medicare type: A, B, D Supplemental: [employer] Referred to patient financial services: No [...] Home Health Services: None DME Provider: Pharmacy: [id number] - [place], [place] - [address] [facility] [address] [facility] [id number] Home Health: Other: POST HOSPITAL TRANSITION PLAN: Pt will be going to his spouses home at [address] [place] [address]. SHe will provide care and he would [...] (C5, 6) 5/5 Tricep (C6, 7) 5/5 Marketing Consultant (C8) 5/5 Interrosei (T1) 5/5 Ext. Carpi Radialis (C6) 5/5 Wrist flexor (C7) 5/5 UE Strength - RIGHT Deltoid (C5) 5/5 Bicep (C5, 6) 5/5 Tricep (C6, 7) 5/5 Marketing Consultant (C8) 5/5 Interrosei (T1) 5/5 Ext. Carpi Radialis (C6) 5/5 Wrist flexor (C7) 5/5 Persist Full strength and normal sensation in the bilateral lower extremities Incision clean/dry/intact Assessment/ 73 year old man status post C4-C6 lateral mass screws, T1-T2 pedicle screws, C7- T2 posterior decompression doing well post-operatively with improvement in pain and numbness. Plan/ Q4H neuro checks Maintain [place] J collar Regular diet DC hwang Transition from DESKTOP SUPPORT CONSULTANT to oral pain meds Monitor and record drain output AAT/OOB Pain control Upright Xrays when able Murray Gomes MD Neurosurgery resident 01/19/2019 11:02 Page 8154 with questions Associated attestation - Caleb Ahumada MD - 01/19/2019 1708 EDT Neurosurgery Staff Patient seen and independently examined. I have reviewed history, pertinent exam findings, and relevant imaging with the resident and agree with the resident note, with the following additions/amendments: Doing well. Pain controlled. Mobilize. XR. DC drain tomorrow. Shashi Ahumada MD Neurosurgery * Murray Gomes MD - 01/18/2019 1026 EDT Neurosurgery Post Procedure Note Problems/ Cervical [...] (C5, 6) 5/5 Tricep (C6, 7) 5/5 Marketing Consultant (C8) 5/5 Interrosei (T1) 5/5 Ext. Carpi Radialis (C6) 5/5 Wrist flexor (C7) 5/5 UE Strength - RIGHT Deltoid (C5) 5/5 Bicep (C5, 6) 5/5 Tricep (C6, 7) 5/5 Marketing Consultant (C8) 5/5 Interrosei (T1) 5/5 Ext. Carpi [...] Admit to floor Q4H neuro checks Maintain [place] J collar Regular diet Monitor and record drain output AAT/OOB Pain control Murray Gomes MD Neurosurgery resident 01/18/2019 16:23 Page 1080 with questions * Good Small MD - 01/18/2019 1356 EDT BRIEF OP NOTE PRE-OP DIAGNOSIS = Cervical myelopathy POST-OP DIAGNOSIS = Same as above PROCEDURE = C4-C6 lateral mass screws, T1-T2 pedicle screws, C7-T2 posterior decompression SURGEON = Rios Ahumada MD STONE PRODUCT FABRICATOR = Good Small MD; Ed Lopez, MS4 ANESTHESIA = GETA COMPLICATIONS = None FINDINGS = Soft bone, fusion mass observed, ligamentous stenosis EBL = 400 cc IVF = See anesthesia record UOP = See anesthesia record SPECIMENS/CULTURES = None DRAINS = CAMPBELL drain SKIN = Chacorta DISPO = PACU then admission Good Small MD Neurosurgery resident 01/18/2019 14:01 Page 1872 with questions * Gladys Alvarado RN - [...] Notes * Kirk Martinez MD - 01/18/2019 0768 EDT The preoperative history and physical which was performed within 30 days of this procedure has been reviewed and the clinically appropriate elements of the physical examination have been repeated. There are no changes to the documented history and physical or if so such changes are documented below Kirk Martinez MD 01/18/2019 7:26 Source Note - PLY SPLICER, SCAN 2 - 01/05/2019 16:48 EDT documented in this encounter OR Notes * OR Surgeon - Robi Ahumada MD, MD - 01/18/2019 0000 EDT OPERATIVE REPORT SERVICE DATE: 01/18/2019 PROCEDURE: 1. C4-T2 posterior instrumented fusion. 2. Inspection of arthrodesis, C4-C7. 3. Spinal image guidance. 4. Laminectomy C7-T2. 5. Synovial cyst resection, left C7-T1. SURGEON: Robi Ahumada MD STONE PRODUCT FABRICATOR: Good Small MD ANESTHESIA: General. PREOPERATIVE DIAGNOSIS: [...] operated. Intraoperative x-ray confirmed correct level. A Franchisee Gladiator reference array was placed on the T2 spinous process. The O-arm was brought in the field,and the high resolution cone beam CT obtained. I then broke scrub and performed surgical planning for the T1 and T2 screws on the Franchisee Gladiator workstation. I then rescrubbed and reentered the field and confirmed a satisfactory registration. We placed pedicle screws as follows: A highway patrol pilot hole was drilled on the right and [...] C4 lateral mass onthe right side, a highway patrol pilot hole was drilled and a 14 mm [...] Vicryl suture. The skin was closed with chacorta. Sterile dressings were applied and the patient brought to the recovery area. Unless otherwise noted, there were no complications, no blood loss, no cultures obtained, no specimens removed, and no drains retained. S Rios Ahumada MD 52 PM / S Rios Ahumada MD nn Confirmation: [id number] Dictation ID: [id number] documented in this encounter Miscellaneous Notes * [...] and reviewed. Report called to A[facility] at [facility]. Response: Pt verbalized understanding and demonstrated all [...] pt s/p laminectomy. Resting comfortably in bed. DESKTOP SUPPORT CONSULTANT available, pt is not utilizing Action: medicate per MAR, assist with repositioning Response: pt resting comfortably, no acute distress BROOKLYN CALABRESE RN 01/19/2019 2:20 Problem: High Fall [...] unit Data: Pt arrived from PACU to [facility] @ 1820 s/p C7-T2 Laminectomy and [...] - Todd Faulkner MD, MD - 01/18/2019 5469 EDT Anesthesia Post op Note Nakul Sam [id number] Anesthesia received: General; Vital Signs: Temp: 36.7 [...] Clinical History/Comments: M47.12-Other spondylosis with myelopathy, cervical [id number]; sp C4-C6 lateral mass screws, T1-T2 pedicle [...] Clinical History/Comments: M47.12-Other spondylosis with myelopathy, cervical [id number]; sp C4-C6 lateral mass screws, T1-T2 pedicle [...] 8.67 4.0 - 10.4 K/cmm 01/20/2019 6:45 [facility] RBC 3.42(L) 4.36 - 5.78 M/cmm 01/20/2019 6:45 [facility] Hemoglobin 10.9(L) 13.8 - 17.3 gm/dl 01/20/2019 6:45 [facility] HCT 31.7(L) 39.5 - 50.2 % 01/20/2019 6:45 [facility] MCV 93 81 - 95 fl 01/20/2019 6:45 [facility] MCH 31.9 27.6 - 33.0 pg 01/20/2019 6:45 [facility] MCHC 34.4 32.8 - 36.4 gm/dl 01/20/2019 6:45 [facility] RDW-CV 12.7 <14.2 % 01/20/2019 6:45 [facility] RDW-SD 43.4 <46.0 fl 01/20/2019 6:45 [facility] PLT 130(L) 141 - 377 K/cmm 01/20/2019 6:45 [facility] MPV 11.0 9.5 - 12.7 fl 01/20/2019 6:45 [facility] % Neutrophils 64.3 % 01/20/2019 6:45 [facility] % Lymphocytes 25.1 % 01/20/2019 6:45 [facility] % Monocytes 9.8 % 01/20/2019 6:45 [facility] % Eosinophils 0.3 % 01/20/2019 6:45 [facility] % Basophils 0.2 % 01/20/2019 6:45 [facility] % Immature Grans 0.3 % 01/20/2019 6:45 [facility] ABS Neutrophils 5.56 2.20 - 8.85 K/cmm 01/20/2019 6:45 [facility] ABS Lymphs 2.18 1.09 - 3.30 K/cmm 01/20/2019 6:45 [facility] ABS Monocytes 0.85(H) 0.1 - 0.8 K/cmm 01/20/2019 6:45 [facility] ABS Eosinophils 0.03 0.03 - 0.61 K/cmm 01/20/2019 6:45 [facility] ABS Basophils 0.02 0.01 - 0.11 K/cmm 01/20/2019 6:45 [facility] ABS Immature Grans 0.03 0 - 0.06 K/cmm 01/20/2019 6:45 [facility] Type of Diff: Automated 01/20/2019 6:45 [facility] Blood specimen (specimen) BLOOD SPECIMEN / Unknown 01/20/2019 6:17 EDT 01/20/2019 6:34 EDT Good Small MD PACKAGES & DNA PROB E ORDERABLES [facility] [address] [place] [address] * (ABNORMAL) CREATININE (01/20/2019 6:17 EDT) Creatinine 0.63(L) 0.66 - 1.25 mg/dl 01/20/2019 7:02 EDT [facility] GFR, Calculated 96 >60 ml/min/1.7 3m2 01/20/2019 7:02 EDT [facility] Comment: eGFR calculated using CKD-EPI equation for non Americans. Multiply eGFR by 1.16 for Americans. Blood specimen (specimen) BLOOD SPECIMEN / Unknown 01/20/2019 6:17 EDT 01/20/2019 6:34 EDT Good Small MD CHEMISTRY & BLOOD G ORDERABLES Performing Organization Address [facility] de Phone Number [facility] [address] [place] [address] * BUN (01/20/2019 6:17 EDT) BUN 10 10 - 26 mg/dl 01/20/2019 7:02 EDT [facility] Blood specimen (specimen) BLOOD SPECIMEN / Unknown 01/20/2019 6:17 EDT 01/20/2019 6:34 EDT Good Small MD CHEMISTRY & BLOOD G ORDERABLES Performing Organization Address [facility] de Phone Number [facility] [address] [place] [address] * ELECTROLYTES (01/20/2019 6:17 EDT) Sodium 139 136 - 145 mEq/L 01/20/2019 7:02 EDT [facility] Potassium 3.7 3.5 - 5.0 mEq/L 01/20/2019 7:02 EDT [facility] Chloride 106 96 - 110 mEq/L 01/20/2019 7:02 EDT [facility] CO2 27 22 - 32 mEq/L 01/20/2019 7:02 EDT [facility] Blood specimen (specimen) BLOOD SPECIMEN / Unknown 01/20/2019 6:17 EDT 01/20/2019 6:34 EDT Good Small MD CHEMISTRY & BLOOD G ORDERABLES [facility] [address] [place] [address] * CERVICAL SPINE 2-3 VIEWS (01/19/2019 13:29 [...] tissue swelling. There are multiple posterior surgical chacorta overlying the cervical spine. IMPRESSION: 1. Unchanged [...] tissue swelling. There are multiple posterior surgical chacorta overlying the cervical spine. IMPRESSION: 1. Unchanged [...] 10.11 4.0 - 10.4 K/cmm 01/19/2019 4:48 [facility] RBC 3.73(L) 4.36 - 5.78 M/cmm 01/19/2019 4:48 [facility] Hemoglobin 11.8(L) 13.8 - 17.3 gm/dl 01/19/2019 4:48 [facility] HCT 34.4(L) 39.5 - 50.2 % 01/19/2019 4:48 [facility] MCV 92 81 - 95 fl 01/19/2019 4:48 [facility] MCH 31.6 27.6 - 33.0 pg 01/19/2019 4:48 [facility] MCHC 34.3 32.8 - 36.4 gm/dl 01/19/2019 4:48 [facility] RDW-CV 12.4 <14.2 % 01/19/2019 4:48 [facility] RDW-SD 42.4 <46.0 fl 01/19/2019 4:48 [facility] PLT 140(L) 141 - 377 K/cmm 01/19/2019 4:48 [facility] MPV 10.7 9.5 - 12.7 fl 01/19/2019 4:48 EDT [facility] % Neutrophils 77.6 % 01/19/2019 4:48 EDT [facility] % Lymphocytes 12.4 % 01/19/2019 4:48 EDT [facility] % Monocytes 9.5 % 01/19/2019 4:48 EDT [facility] % Eosinophils 0.0 % 01/19/2019 4:48 EDT [facility] % Basophils 0.1 % 01/19/2019 4:48 EDT [facility] % Immature Grans 0.4 % 01/19/2019 4:48 EDT [facility] ABS Neutrophils 7.85 2.20 - 8.85 K/cmm 01/19/2019 4:48 EDT [facility] ABS Lymphs 1.25 1.09 - 3.30 K/cmm 01/19/2019 4:48 EDT [facility] ABS Monocytes 0.96(H) 0.1 - 0.8 K/cmm 01/19/2019 4:48 EDT [facility] ABS Eosinophils 0.00(L) 0.03 - 0.61 K/cmm 01/19/2019 4:48 EDT [facility] ABS Basophils 0.01 0.01 - 0.11 K/cmm 01/19/2019 4:48 EDT [facility] ABS Immature Grans 0.04 0 - 0.06 K/cmm 01/19/2019 4:48 T [facility] Type of Diff: Automated 01/19/2019 4:48 EDT [facility] Blood specimen (specimen) BLOOD SPECIMEN / Unknown 01/19/2019 4:39 EDT 01/19/2019 4:41 EDT Good Small MD PACKAGES & DNA PROB E ORDERABLES [facility] [address] [place] [address] * (ABNORMAL) CREATININE (01/19/2019 4:39 EDT) Creatinine 0.64(L) 0.66 - 1.25 mg/dl 01/19/2019 5:21 EDT [facility] GFR, Calculated 96 >60 ml/min/1.7 3m2 01/19/2019 5:21 EDT [facility] Comment: eGFR calculated using CKD-EPI equation for non Americans. Multiply eGFR by 1.16 for Americans. Blood specimen (specimen) BLOOD SPECIMEN / Unknown 01/19/2019 4:39 EDT 01/19/2019 4:41 EDT Good Small MD CHEMISTRY & BLOOD G ORDERABLES Performing Organization Address City/[facility]/ZIP Co de Phone Number [facility] [address] [place] [address] * BUN (01/19/2019 4:39 EDT) BUN 11 10 - 26 mg/dl 01/19/2019 5:21 EDT [facility] Blood specimen (specimen) BLOOD SPECIMEN / Unknown 01/19/2019 4:39 EDT 01/19/2019 4:41 EDT Good Small MD CHEMISTRY & BLOOD G ORDERABLES Performing Organization Address [facility] Co de Phone Number [facility] [address] [place] [address] * ELECTROLYTES (01/19/2019 4:39 EDT) Sodium 138 136 - 145 mEq/L 01/19/2019 5:21 EDT [facility] Potassium 4.0 3.5 - 5.0 mEq/L 01/19/2019 5:21 EDT [facility] Chloride 105 96 - 110 mEq/L 01/19/2019 5:21 EDT [facility] CO2 27 22 - 32 mEq/L 01/19/2019 5:21 EDT [facility] Blood specimen (specimen) BLOOD SPECIMEN / Unknown 01/19/2019 4:39 EDT 01/19/2019 4:41 EDT Good Small MD CHEMISTRY & BLOOD G ORDERABLES [facility] [address] [place] [address] * (ABNORMAL) COMPLETE BLOOD COUNT (01/18/2019 14:39 EDT) WBC 10.39 4.0 - 10.4 K/cmm 01/18/2019 14:57 EDT [facility] RBC 4.07(L) 4.36 - 5.78 M/cmm 01/18/2019 14:57 EDT [facility] Hemoglobin 13.2(L) 13.8 - 17.3 gm/dl 01/18/2019 14:57 T [facility] HCT 37.6(L) 39.5 - 50.2 % 01/18/2019 14:57 T [facility] MCV 92 81 - 95 fl 01/18/2019 14:57 EDT [facility] MCH 32.4 27.6 - 33.0 pg 01/18/2019 14:57 EDT [facility] MCHC 35.1 32.8 - 36.4 gm/dl 01/18/2019 14:57 T [facility] RDW-CV 12.3 <14.2 % 01/18/2019 14:57 T [facility] RDW-SD 42.2 <46.0 fl 01/18/2019 14:57 T [facility] PLT 164 141 - 377 K/cmm 01/18/2019 14:57 T [facility] MPV 10.6 9.5 - 12.7 fl 01/18/2019 14:57 [facility] Blood specimen (specimen) BLOOD SPECIMEN / Unknown 01/18/2019 14:39 EDT 01/18/2019 14:45 EDT Chinedu Gonzalez MD HEMATOLOGY & PF4 ORDERABLES Performing Organization Address City/[facility]/ZIP Co de Phone Number [facility] [address] [place] [address] * CERVICAL SPINE 1 VIEW (01/18/2019 13:47 [...] AND SCREEN (01/18/2019 6:30 EDT) ABO A [facility] Rh Factor Positive [facility] Antibody Screen Negative [facility] Specimen Expires: 01/21/2019 @ 23:59 [facility] 01/18/2019 6:30 EDT Caleb Ahumada MD BLOOD BANK TESTS Performing Organization Address City/State/[facility] Co de Phone Number [facility] [address] [place] [address] * ECG REPORT - SCANNED (01/05/2019 16:48 EDT) 01/05/2019 16:4 8 EDT Scan 2 Device Test Engineer PROCEDURE/MINOR JACKY GICAL ORDERABLES documented in this [...] EDT 25 mcg HYDROmorphone 1 mg/ml (DILAUDID) DESKTOP SUPPORT CONSULTANT syringe, 30 ml intravenous, DESKTOP SUPPORT CONSULTANT, Starting on Wed01/18/19 at 1530, Until Verna 25/19 at 1231, See PRN bolus orders for breakthrough pain. CLICK to see order details, Routine, DESKTOP SUPPORT CONSULTANT Dose (mg): 0.2, Lockout Interval (minutes): 10, [...] Good Reardon RN) HYDROmorphone 1 mg/ml (DILAUDID) DESKTOP SUPPORT CONSULTANT syringe, 30 ml (CANCELED) intravenous, DESKTOP SUPPORT CONSULTANT, Starting on Wed01/18/19 at 1530, Until Wed01/19/19 at 1231, See PRN bolus orders for breakthrough pain. CLICK to see order details, Routine, DESKTOP SUPPORT CONSULTANT Dose (mg): 0.2, Lockout Interval (minutes): 10, [...] 12/27 documented in this encounter Care Teams Rn Clinical Relationship Specialty Start Date End Date Garcia Hugo MD [address] [place] [address] PCP - General 09/03/09 documented as of this encounter
--- OUTSIDE RECORDS SUMMARY | 2024-02-08 21:56 | XMS_ITS | Encounter Summary ---
Author Organization [facility] Address [address] [place] [address] Care Team Providers Care Turn Down Attendant Name Role Phone Garcia Gonzales MD Primary Care Provider [phone] Encounter Details Date Type Department Care Team (Late st Contact Info) Description 06/04/2011 Results Only [facility] Laboratory Services - [facility] ([facility]) [address] [place], [place] [address] Garcia Gonzales MD [address] [place], [place] [id number] Social History Tobacco Use Types Packs/Day Years [...] ? SINDY SAM ? Accession #: ? [id number] ? : ? 1945 (Age: 66) ??M [...] and entirely submitted in one cassette. (Dr. Lott)/[facility] End of Report KAVITA DUBON 06/04/2011 06/05/2011 16: 02 EST Garcia Gonzales MD PATHOLOGY ORDERABLES KAVITA DUBON [address] [place] [address] documented in this encounter Visit Diagnoses Not on filedocumented in this encounter Care Teams Turn Down Attendant Relationship Specialty Start Date End Date Garcia Gonzales MD [address] [place] [address] PCP - General 09/03/09 documented as of this encounter
--- OUTSIDE RECORDS SUMMARY | 2024-02-08 21:56 | XMS_ITS | Encounter Summary ---
Author Organization [facility] Address [address] [place] [address] Care Team Providers Care Warhead Maintenance Specialist Name Role Phone Garcia Gonzales MD Primary Care Provider [phone] Reason for Visit * Reason Comments Neck Pain C7-T1 Encounter Details Date Type Department Care Team (Late st Contact Info) Description 04/11/2019 11:00 EDT Post-op Visit [facility] Neurosurgery - [address] [address] Caleb Ahumada MD [address] [facility], [address] [place] [phone] Lumbar stenosis with neurogenic claudication (Primary Dx) [...] 5/5 power in the deltoid, biceps, triceps, stationary equipment mechanic, iliopsoas, quadriceps, dorsiflexors, EHL and plantar flexors. [...] indicated he would like to avoid a WIRE SPINNER and instead use nursing dosing. Twenty-five minutes of this 45-minute [id number] visit was spent in patient counseling. documented in this encounter Plan of Treatment Not on file documented as of this encounter Visit Diagnoses Diagnosis Lumbar stenosis with neurogenic claudication- Primary Spinal stenosis, lumbar region, with neurogenic claudication documented in this encounter Care Teams Warhead Maintenance Specialist Relationship Specialty Start Date End Date Garcia Gonzales MD [address] [place] [address] PCP - General 09/03/09 documented as of this encounter
--- OUTSIDE RECORDS SUMMARY | 2024-02-08 21:56 | XMS_ITS | Encounter Summary ---
Author Organization [facility] Address [address] [place] [address] Care Team Providers Care Dx Board Operator Name Role Phone Garcia Gonzales MD Primary Care Provider [phone] Encounter Details Date Type Department Care Team (Late st Contact Info) Description 01/18/2019 Results Only [facility] Neurosurgery - [address] [address] Caleb Ahumada MD [address] [place] [address], [address] [place] [phone] Social History Tobacco Use Types Packs/Day Years [...] 10:53 EDT Non Reportable Exam Procedure Note CADET DECK, IMAGING - 01/18/2019 Non Reportable Exam Caleb Ahumada MD IMG FLUOROSCOPY O RDERABLES * CERVICAL SPINE 2-3 VIEWS (01/18/2019 10:51 EDT) Anatomical Region Laterality Modality Other 01/18/2019 10:5 1 EDT Narrative 01/18/2019 10:51 EDT Non Reportable Exam Procedure Note CADET DECK, IMAGING - 01/18/2019 Non Reportable Exam Caleb Ahumada MD IMG DIAGNOSTIC IM AGING ORDERABLES documented in this encounter Visit Diagnoses Not on filedocumented in this encounter Care Teams Dx Board Operator Relationship Specialty Start Date End Date Garcia Gonzales MD [address] [place] [address] PCP - General 09/03/09 documented as of this encounter
--- OUTSIDE RECORDS SUMMARY | 2024-02-08 21:56 | XMS_ITS | Encounter Summary ---
Author Organization [facility] Address [address] [place] [address] Care Team Providers Care Riddler Operator Name Role Phone Garcia Gonzales MD Primary Care Provider Reason for Referral * PT/OT/ST (Routine) - Closed Specialty Diagnoses / Procedures Referred By Lucia t Referred To Contact Diagnoses Cervical arthritis with myelopathy Caleb Ahumada MD [address] [place] [phone] Referral ID Status Reason Start Date Expiration Date V isits Requested Visits Authorized [id number] Closed Specialty Services Required 02/09/2019 1 1 Question Answer Reason for Request: strengthening after cervical fusion Reason for Visit * Reason Comments Post-OP Follow Up C7-T1 fusion * Consult (Routine) - Closed Specialty Diagnoses / Procedures Referred By Contac t Referred To Contact Neurosurgery Diagnoses Cervical spondylosis with radiculopathy Murray Gomes MD [address] [place] [id number] Caleb Ahumada MD [address] [place] [phone] Referral ID Status Reason Start Date Expiration Date V isits Requested Visits Authorized [id number] Closed Specialty Services Required 01/20/2019 1 1 Encounter Details Date Type Department Care Team (Late st Contact Info) Description 02/09/2019 15:15 EDT Post-op Visit [facility] Neurosurgery - Main [address] [id number] Caleb Ahumada MD [address] [place] [address], [address] [place] [phone] Cervical arthritis with myelopathy (Primary [...] 1/1/0/2. Full power both deltoids, biceps, triceps, spring tacker and BLE No hyperreflexia Denies abnormalities of [...] 06/06/2019 added in this encounter Care Teams Riddler Operator Relationship Specialty Start Date End Date Garcia Gonzales MD [address] [place] [address] PCP - General 09/03/09 documented as of this encounter
--- OUTSIDE RECORDS SUMMARY | 2024-02-08 21:56 | XMS_ITS | Encounter Summary ---
Author Organization [facility] Address [address] [place] [address] Care Team Providers Care Metal Mold Dresser Name Role Phone Garcia Gonzales MD Primary Care Provider [phone] Encounter Details Date Type Department Care Team (Late st Contact Info) Description 12/09/2018 Results Only Imaging [facility] [phone] Unknown, Provider, Social History Tobacco Use Types [...] on filedocumented in this encounter Care Teams Metal Mold Dresser Relationship Specialty Start Date End Date Garcia Gonzales MD [address] [place] [address] PCP - General 09/03/09 documented as of this encounter
--- OUTSIDE RECORDS SUMMARY | 2024-02-08 21:56 | XMS_ITS | Continuity of Care Document ---
Author Organization [place] - [facility] Address [address] [place] [address] Assessment No assessment recorded. Plan of Treatment Reminders Order Date Submit Date Provider Last Modified By Organization Details Last Modified Time Details Appointments Follow Up 2023 12:10P M Not available Not available Not available Annual Chronic Care (65+) 30 2024 02:10P M Not available Not available Not available Lab None recorded . Referral None recorded . Procedures None recorded . Surgeries None recorded . Imaging None recorded . Medication Orders None recorded . Patient TargetsNo targets recorded. Patient InstructionsNo instructions recorded. Reason for Referral None Reported. Results Created Date Observation Date Name Description Value Unit Range Abnormal Flag LastModifiedBy Organization Detail LastModifiedTime 01/13/20 24 01/13/2024 vrad repor t Patien t Name: Zafar Celeste Unit #: [id number] Loc: ER Orderi ng Provid er: Accoun t #: [id number] Status : REG ER Primar y [...] INFORM ATION: Exam: CT Cervic al Spine With Contra Exam date and time: 024 7:45 PM Age: 78 years old Clinic al indica tion: Injury or trauma ; Fall; Blunt trauma (contu sions or hemato mas) TECHNI QUE: Imagin g protoc ol: Comput ed tomogr aphy of the cervic al spine with contra . COMPAR ADWOA: MR CERVIC AL SPINE WO [...] change s as noted. Dictat ed and Authen ticate d by: Dayami gamez MD. Orderi ng:Marija rowe MD Access ion#=[id number] Ordere d By: CC: ------ ------ ------ ------ ------ ------ ------ ------ ------ ------ ------ ------ ---- Dictat ed By: Report s vrad 1946 Transc ribed By: Aidee Merge 1944 This is privil eged, confid ential inform ation intend ed only for the provid er named. Any use or distri bution by any person other than this provid er is strict ly prohib ited. If you receiv e this report in error, please notify us immedi niccily at and return the origin al report to us at the addres s above. Thank- you. [facility]ksmarek [facility] [address], [place], [address] 01/15/2024 00:08:36 01/13/2001/13/2024 vrad alon garcia Name: Zafar Celeste Unit #: [id number] Loc: ER Orderi ng Provid er: Flavio t #: [id number] Status : REG ER Primar y Care Provid er: Betty Chavarria M.D. Date of Exam: Sex: M : 1944 Age: 78 Exam(s ) PROCED URE INFORM ATION: Exam: CT Thorac ic Spine With t Contra st Exam date and time: [...] ADWOA: CT HEAD CERVIC AL SPINE WO 024 7:45 PM FINDIN GS: Bones/ joints : [...] Contra st Exam date and time: 024 7:55 PM Age: 78 years old Clinic [...] 9:21 PM EDT. Dictat ed and Authen adiliaate d by: Dayami gamez MD. Orderi ng:Marija rowe MD Access ion#=[id number] Michael rhodes By: CC: ------ ------ ------ ------ ------ ------ ------ ------ ------ ------ ------ ------ ---- Dictat ed By: Report s vrad 1954 Transc ribed By: Aidee Fisher 1954 This is privil eged, confid ential inform ation intend ed only for the provid er named. Any use or distri bution by any person other than this provid er is strict ly prohib ited. If you receiv e this report in error, please notify us immedi ately at [phone] and return the origin al report to us at the addres s above. Thank- you. elizabeth [facility] [address], [place], [address] 01/15/2024 00:08:36 01/14/20 24 01/14/2024 CT imagi ng repor t Patilulu t Name: Zafar Celeste Unit #: [id number] Loc: MS Agueda sharma Provid er: Luzma Fine M.D. Accsheyla t #: [id number] Status : ADM KIRSTIE Primar y [...] ed age. CERVIC AL SPINE: There is registered appraiser ior fusion hardwa re C4 down to [...] facili ty are submit bart to the [facility] al Radiol ogy Data Regist ry (NRDR) Dose Index Regist ry (DIR) with the [employer] o[employer] (ACR). RADIAT ION OPTIMI ZATION : All CT scans at this facili ty use at least one of these dose optimi zation techni ques: automa bart exposu re contro l; mA and/or kV adjust ment per patien t size (inclu anjana target ed exams where dose is matche d to clinic al indica tion); or iterat crescencio recons tructi on. 022: Total DLP = 0.00 mGy-cm Ordere d By: Luzma Fine M.D. CC: ------ ------ ------ ------ ------ ------ ------ ------ ------ ------ ------ ------ ---- Dictat ed By: Brian Rothman M.D. 37 936 Transc ribed By: Stephan SNIDER,Nitin nick 936 This is privil eged, confid ential [...] the addres s above. Thank- you. elizabeth [facility] [address], [place], [address] 01/15/2024 00:08:37 01/14/20 24 01/14/2024 CT imagi ng repor t Patien t Name: Zafar Celeste Unit #: [id number] Loc: Orderdaisy ng Provid er: Luzma Fine M.D. Accoun t #: [id number] Status : ADM KIRSTIE Primar y [...] fractu res at these fused levels . Mary r, there is an obliqu e fractu [...] at this level. Soft tissue s: The registered appraiser ior wall of the upper [place] [...] Index Regist ry (DIR) with the [employer] Radiol ogy (ACR). RADIAT ION OPTIMI ZATION : [facility] use at least one of these dose optimi zation techni ques: automa bart exposu re contro l; mA and/or kV adjust ment per patien t size (inclu anjana target ed exams where dose is matche d to clinic al indica tion); or iterat crescencio recons tructi on. 021: Total DLP = 0.00 mGy-cm Ordere d By: Luzma Fine M.D. CC: ------ ------ ------ ------ ------ ------ ------ ------ ------ ------ ------ ------ ---- Dictat ed By: Brian Rothman M.D. 948 Transc ribed By: Stephan SNIDER,Nitin nick 948 This is privil eged, confid ential inform ation intend ed only for the provid er named. Any use or distri bution by any person other than this provid er is strict ly prohib ited. If you receiv e this report in error, please notify us immedi niccily at [phone] and return the origin al report to us at the addres s above. Thank- you. elizabeth [facility] [address], [place], [address] 01/15/2024 00:08:37 01/20/20 24 01/20/2024 ultra sound imagi ng repor t Patien t Name: Zafar Celeste Unit #: [id number] Loc: DI Orderi ng Provid er: Logan Good garcia #: [id number] Status : REG CLI Primar y Care Provid er: Betty Chavarria M.D. Date of Exam: Sex: M Admiss ion Date: : 1944 Age: 78 ------ ------ --- APPROV ED REPORT ------ ------ -- EXAM: Compre hensiv e 2D, Dopple r, and color- flow Echoca rdiogr am Patien t Locati on: Out-Pa tient Sonogr apher: Mary Hill , RDCS (AE) Indica tions: Syncop e Other Inform ation Study Qualit y: Fair. Techni chu limite d study due to body habitu s, inabil ity to positi on patien t exam done supine /sitti ng. Conclu lashanda Normal left ventri cular wall thickn ess and chambe r size. Ejecti on fracti on is 50 to 55%. There are no segmen patricia wall motion abnorm alitie s Mildly enlarg ed right ventri aruna Left atrium is mildly dilate d. Right atrium is modera tely dilate d Aortic valve is mildly sclero tic and trilea flet with mild regurg itatio n Mild mitral annula r calcif icatio n. Trace to mild mitral regurg itatio n Normal tricus pid valve, modera te regurg itatio n. Estima bart right ventri cular systol ic pressu re is 28 mmHg Ascend ing aorta measur es 3.6 cm Wall motion Left Ventri aruna The left ventri aruna is normal size. The overal l left ventri cular systol ic functi on appear s normal . There is normal left ventri cular wall thickn ess. There is normal LV segmen patricia wall motion . There is no ventri cular septal defect visual ized. LVEF is 50-55% . Right Ventri aruna Right ventri aruna is mild to modera tely dilate d. Right ventri cular systol ic functi on is grossl y normal . Atria Left atrium is mildly dilate d. Right atrium is modera tely dilate d. The intera trial septum is intact with no eviden ce for an atrial septal defect . Aortic Valve The Aortic valve is mildly sclero tic. Aortic valve is trilea flet. There is no aortic valvul ar stenos is. mild aortic regurg itatio n. Mitral Valve Mild mitral annula r calcif icatio n. No eviden ce of mitral valve stenos is. Trace to mild mitral regurg itatio n. Tricus pid Valve The tricus pid valve is normal in struct ure. There is no tricus pid valve stenos is. Modera te tricus pid regurg itatio n. The RVSP is 27.7 mmHg. Pulmon ic Valve The pulmon matheus valve is normal in struct ure. There is no pulmon ic valvul ar stenos is. Trace pulmon ic regurg itatio n. Great Vessel s The aortic root is normal in size. The ascend ing aorta is mildly dilate d. Aortic arch is not well visual ized. The IVC collap ses <50% with inspir ation. Perica rdium There is no perica rdial effusi on. 2D Dimens ions IVSD d PLAX 1.00 cm M: 0.6-1. 2 Ao Root d 3.57 cm M: 3.1 - 3.7 LVPW d PLAX 1.00 cm M: 0.6 - 1.2 Ao Asc Diam d 3.60 cm M: 2.6 - 3.4 LVID d PLAX 5.02 cm M: 4.2 - 5.8 LVDs 3.78 cm M: 2.5 - 4.0 LV EF Teichh olz 48.6 % FS 24.61 % LV EDV (Teich ) 119.3 mL LV ESV (Teich ) 61.3 mL Auto EF LV EDV A4C 109.4 mL LV EDV A2C 90.8 mL LV EDV BP 99.4 mL LV ESV A4C 48.9 mL LV ESV A2C 45.3 mL LV ESV BP 46.4 mL LVEF(% ) A4C 55.3 % LVEF(% ) A2C 50.1 % LVEF(% ) BP 53.3 % LV SV A4C 60.5 ml LV SV A2C 45.5 ml LV SV BP 53.0 ml LV CO A4C 4.5 L/min LV CO A2C 2.9 L/min LV CO BP 3.7 L/min HR A4C 74.08 BPM HR A2C 63.83 BPM LV EDV Index (BP) RV Strain Global Peak Long. Strain A4C 8.27 Global Peak Long. Strain A4C FW 10.05 LA Volume LA Length A4C 6.2 cm LA Length A2C 5.5 cm LA Area A4C s 22.61 cm2 LA Area A2C s 23.28 cm2 LA Vol A4C A-L 70.56 mL LA Vol A2C A-L 83.90 mL LA Vol Biplan e A-L 81.5 mL LA Vol/BS A A4C A-L LA Vol/BS A A2C A-L LA Vol/BS A BP A-L 36.7 mL/m2 LA Vol A4C MOD 63.8 mL LA Vol A2C MOD 79.3 mL LA Vol BP MOD 75.2 mL RA Volume RA Area A4C 27.3 cm2 RA ESV A4C (A-L) 110.4m L RA Vol/BS A A4C A-L RA Length A4C 5.7 cm RA ESV A4C (MOD) 104.8m L LV Diasto logy MV E' medial 0.118 (>0.07 m/s) MV E Vmax 0.98 (0.4-1 .3 m/s) MV E/E' MED 8.30 (<14) MV E' latera l 0.129 (>0.1 m/s) MV E/E' LAT 7.61 (<14) MV E' Averag e 0.123 m/s MV E/E'(a verage ) 7.94 Aortic Valve AoV Vmax 1.15 m/s LVOT Vmax 0.80 m/s AoV Peak Grad 5.3 mmHg LVOT Peak Grad 2.6 mmHg AoV Area (Vmax) 2.26 cm2 LVOT VTI 0.161 m AoV VTI 0.220 m LVOT Mean Grad 1.2 mmHg AoV Mean Trav. 0.81 m/s LVOT SV 52.63 mL AoV Mean Grad 3.1 mmHg LVOT Diam s 2.00 cm AoV Area (VTI) 2.39 cm2 AV Regurg Peak Gr. 5.33 mmHg Veloci ty Ratio 0.70 Mitral Valve MV DT 175 (160-2 40 msec) MV Vmax TIPS 0.70 m/s MV Mean Grad 0.7 (<2mmH g) MV VTI 0.229 m Pulmon matheus Valve PV Vmax 0.87 (0.5-1 .5 m/s) RVOT Vmax 0.57 m/s PV Peak Grad 3.1 mmHg RVOT Peak Gr. 1.3 mmHg PV Mean Trav 0.61 m/s RVOT VTI 0.129 m PV Mean Grad 1.7 mmHg RVOT Mean Gr. 0.7 mmHg Tricus pid Valve RA Pressu re 8.00 mmHg TR Vmax 2.22 m/s TV S' 0.14 m/s TR Peak Grad 19.7 mmHg RVSP (TR) 27.7 mmHg Michael rhodes By: [place] CC: ANALISA CHAVARRIA MD ------ ------ ------ ------ ------ ------ ------ ------ ------ ------ ------ ------ - Dictat ed By: Deidre Dao M.D. 1142 1155 Transc ribed By: Deidre Dao MD 1142 This is privil eged, confid ential inform ation intend ed only for the provid er named. Any use or distri bution by any person other than this [facility] is strict ly prohib ited. If you receiv e this report in error, please notify us immedi niccily at [phone] and return the origin al report to us at the addres s above. Thank- you. elizabeth [facility] [address], [place], [address] 01/31/2024 15:38:26 Result Notes None recorded. Problems Name Status Onset Date Resolution Date Notes Provider Name and Address Organization Details Recorded Time Diverticula of intestine Active 2005 Problem Code: K57.90; Problem Code Type: ICD-10; YOLANDA GRIJALVA MA [facility], [place] - [facility] 4 08:35:37 Hyperlipidemi a Active 200109/13/2018 - [...] Code Type: ICD-10; MD Margarita [address]MONS Dr, [address] 4 22:46:23 Testicular hypofunction Active 2001 Problem Code: E29.1; Problem Code Type: ICD-10; MD Margarita [address]MON[address] Dr, [address] 4 22:43:01 Peripheral venous insufficiency Active 201109/13/2018 - Comments only - Faizan Serrano - - Well compensated/A symptomatic. - Monitor for progression or functional impairment. - We will continue to monitor. Problem Code: I87.2; Problem Code Type: ICD-10; MD Margarita [address]MON[address] Dr, [address] 4 22:46:08 Steatosis of liver Active 2008 Problem Code: K76.0; Problem Code Type: ICD-10; MD Margarita SIMMON[address] Dr, [address] 4 22:46:12 History of polyp of colon Active 2014 Problem Code: Z86.010; Problem Code Type: ICD-10; MD Margarita SIMMONS Dr, [address] 4 22:44:32 Paroxysmal atrial fibrillation Active [...] Code Type: ICD-10; MD Margarita SIMMONS Dr, [address] 4 22:45:59 Genitourinary symptoms Completed 201505/29/2016 Problem Code: R39.89; Problem Code Type: ICD-10; Not Available [facility] 3 04:26:17 Residual hemorrhoidal skin tags Completed 201608/11/2023 Problem Code: K64.4; Problem Code Type: ICD-10; MD Margarita SIMMONS Dr, [facility] [address] , [facility] 4 22:44:26 Adult health examination Active 201709/13/2018 - Comments only - Faizan Zach - - Not up-to-date on tetanus vaccine. - Administered Tdap vaccine today in our clinic. - Advised to cut down on his alcohol consumption. - In regards to his skin lesions, I explained to him that the lesions are benign age-related process and not cancerous. Problem Code: Z00.00; Problem Code Type: ICD-10; MD Margarita [address] Dr, [facility] [address] , [facility] 4 22:45:56 Cough Completed 201909/04/2019 Problem Code: R05; Problem Code Type: ICD-10; Not Available [facility] 3 04:26:17 Blood in urine Completed 202108/16/2021 Problem Code: R31.9; Problem Code Type: ICD-10; Not Available [facility] 3 04:26:17 Abdominal pain Completed 202108/16/2021 Problem Code: R10.9; Problem Code Type: ICD-10; Not Available [facility] 3 04:26:17 History of urinary stone Active 2021 Problem Code: Z87.442; Problem Code Type: ICD-10; MD Margarita [address], [facility] [address] , [facility] 4 22:43:09 Cough Completed 202103/12/2022 Problem Code: R05.8; Problem Code Type: ICD-10; Not Available [facility] 3 04:26:18 Actinic keratosis Completed 202103/12/2022 Problem Code: L57.0; Problem Code Type: ICD-10; Not Available [facility] 3 04:26:18 Benign prostatic hyperplasia Active 2022 Problem Code: N40.0; Problem Code Type: ICD-10; ANALISA CHAVARRIA MD [address], [facility] [address] , [facility] 4 22:46:18 Dyspnea Completed 202208/11/2023 Problem Code: R06.09; Problem Code Type: ICD-10; MD Margarita [address]MON[address] Dr, [facility] [id number] [place] [address] 4 22:43:35 Tear film insufficiency of bilateral eyes Completed 201708/13/2021 Problem Code: H04.123; Problem Code Type: ICD-10; Not Available [facility] 3 04:26:19 Hypogonadism Completed 200103/24/2023 Not Available [facility] 3 04:26:19 General examination of patient Completed 201412/04/2015 Problem Code: Z00.8; Problem Code Type: ICD-10; Not Available [facility] 3 04:26:19 History of urinary disease Completed 201502/10/2021 Problem Code: Z87.448; Problem Code Type: ICD-10; Not Available [facility] 3 04:26:19 Cholelithiasi s without obstruction Completed 202108/12/2022 Problem Code: K80.20; Problem Code Type: ICD-10; Not Available [facility] 3 04:26:19 Spinal stenosis of lumbar region Completed 201401/03/2016 Not Available [facility] 3 04:26:19 Lumbosacral radiculopathy Completed 201402/02/2020 Problem Code: M54.16; Problem Code Type: ICD-10; Not Available [facility] 3 04:26:19 Hypertrophic condition of skin Completed 201902/10/2021 Problem Code: L91.8; Problem Code Type: ICD-10; Not Available [facility] 3 04:26:20 Age related macular degeneration Completed 200103/24/2023 Problem Code: 362.50; Problem Code Type: ICD-9; Not Available [facility] 3 04:26:20 Spasm Completed 201502/10/2021 Problem Code: R25.2; Problem Code Type: ICD-10; Not Available [facility] 3 04:26:20 Smearing of feces Completed 201702/02/2020 Problem Code: R15.1; Problem Code Type: ICD-10; Not Available [facility] 3 04:26:20 Nausea and vomiting Completed 202108/30/2021 Problem Code: R11.2; Problem Code Type: ICD-10; Not Available [facility] 3 04:26:20 Spinal stenosis in cervical region Completed 201808/13/2021 Problem Code: M48.02; Problem Code Type: ICD-10; Not Available [facility] 3 04:26:20 Abdominal pain Completed 201911/20/2019 Problem Code: R10.9; Problem Code Type: ICD-10; Not Available [facility] 3 04:26:21 Diverticulosi s of large intestine Completed 202108/12/2022 Problem Code: K57.30; Problem Code Type: ICD-10; Not Available [facility] 3 04:26:21 Acute sinusitis Completed 201512/04/2015 Problem Code: J01.90; Problem Code Type: ICD-10; Not Available [facility] 3 04:26:21 Pre-surgery evaluation Completed 201806/06/2019 Problem Code: Z01.818; Problem Code Type: ICD-10; Not Available [facility] 3 04:26:21 Chronic nonalcoholic liver disease Completed 200803/24/2023 Problem Code: 571.8; Problem Code Type: ICD-9; Not Available [facility] 3 04:26:21 Cellulitis of left lower limb Completed 202109/10/2021 Problem Code: L03.116; Problem Code Type: ICD-10; Not Available [facility] 3 04:26:22 Fatigue Completed 201506/06/2019 Problem Code: R53.83; Problem Code Type: ICD-10; Not Available [facility] 3 04:26:22 Anemia due to chronic blood loss Completed 201802/02/2020 Problem Code: D50.0; Problem Code Type: ICD-10; Not Available [facility] 3 04:26:22 Benign neoplasm of colon Completed 201403/24/2023 09/13/2018 - Comments only - Faizan Serrano - - Not up-to-date on colonoscopy. - Provided a referral to see Dr. Jones, gastroenterol ogist, to get his colonoscopy done. - Further treatment plan pending colonoscopy result. Problem Code: D12.6; Problem Code Type: ICD-10; Not Available [facility] 3 04:26:22 Senile hyperkeratosi s Completed 201508/12/2022 Problem Code: L82.1; Problem Code Type: ICD-10; Not Available [facility] 3 04:26:22 Dizziness and giddiness Completed 202008/13/2021 Problem Code: R42; Problem Code Type: ICD-10; Not Available [facility] 3 04:26:22 Spinal stenosis of lumbar region Completed 201802/02/2020 Problem Code: M48.062; Problem Code Type: ICD-10; Not Available [facility] 3 04:26:23 Rupture of rotator cuff of right shoulder Completed 200202/09/2022 Problem Code: M75.101; Problem Code Type: ICD-10; Not Available [facility] 3 04:26:23 Elevated blood-pressur e reading without diagnosis of hypertension Completed 202008/13/2021 Problem Code: R03.0; Problem Code Type: ICD-10; Not Available [facility] 3 04:26:23 Cough Completed 201506/11/2016 Problem Code: R05; Problem Code Type: ICD-10; Not Available [facility] 3 04:26:23 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 Completed 200206/06/2019 Problem Code: 722.0; Problem Code Type: ICD-9; Not Available [facility] 3 04:26:23 Benign neoplasm of colon Completed 199806/20/2015 Problem Code: 211.3; Problem Code Type: ICD-9; Not Available [facility] 3 04:26:24 Right lower quadrant pain Completed 201901/02/2020 Problem Code: R10.31; Problem Code Type: ICD-10; Not Available [facility] 3 04:26:24 Exposure to sting or bite by insect Completed 202102/09/2022 Not Available [facility] 3 04:26:24 Hypocalcemia Completed 201902/02/2020 Problem Code: E83.51; Problem Code Type: ICD-10; Not Available [facility] 3 04:26:24 Dizziness and giddiness Completed 201902/10/2021 Problem Code: R42; Problem Code Type: ICD-10; Not Available [facility] 3 04:26:24 Mitesh hematuria Completed 201911/20/2019 Problem Code: R31.0; Problem Code Type: ICD-10; Not Available [facility] 3 04:26:25 Spinal stenosis of lumbar region Completed 201408/13/2021 Problem Code: M48.06; Problem Code Type: ICD-10; Not Available [facility] 3 04:26:25 Cataract Completed 201402/02/2020 Problem Code: H26.9; Problem Code Type: ICD-10; Not Available [facility] 3 04:26:25 Joint pain Completed 201412/04/2015 Problem Code: M25.50; Problem Code Type: ICD-10; Not Available [facility] 3 04:26:26 Disorder of bursa of shoulder region Completed 200203/24/2023 Problem Code: 726.10; Problem Code Type: ICD-9; Not Available [facility] 3 04:26:26 Osteoarthriti s Completed 200102/02/2020 Thumbs, left shoulder ANALISA CHAVARRIA MD [address], [place], [address] , [facility] 4 14:46:55 Disorder of nasal sinus Completed 201706/06/2019 Not Available [facility] 3 04:26:26 Visual impairment Completed 200102/10/2021 Problem Code: H54.7; Problem Code Type: ICD-10; Not Available [facility] 3 04:26:26 Arthritis of left knee Completed 201508/13/2021 Problem Code: M13.862; Problem Code Type: ICD-10; Not Available [facility] 3 04:26:27 Arthritis Completed 200103/24/2023 Not Available [facility] 3 04:26:27 Hypo-osmolali ty and or hyponatremia Completed 201801/02/2020 Problem Code: E87.1; Problem Code Type: ICD-10; Not Available [facility] 3 04:26:27 Abdominal pain Completed 202008/13/2021 Problem Code: R10.9; Problem Code Type: ICD-10; Not Available [facility] 3 04:26:28 Cellulitis of left upper limb Completed 201902/02/2020 Problem Code: L03.114; Problem Code Type: ICD-10; Not Available [facility] 3 04:26:28 Diverticular disease Completed 200503/24/2023 Not Available [facility] 3 04:26:28 Cough Completed 202205/30/2023 Problem Code: R05.8; Problem Code Type: ICD-10; Not Available [facility] 4 05:37:54 Dependent edema Active [address], [place] [address] , [facility] 4 22:44:14 Renal mass Active 2023 L, followed by urol MD Margarita [address], [place] [address] , [facility] 4 22:44:58 Dry eyes Active [address], [address] 4 22:45:15 Osteoarthriti s Active [address], [place] [address] , [facility] 4 14:46:54 Closed fracture of fourth thoracic vertebra Active [address], [place] [address] , [facility] 4 23:52:22 Low back pain Active 2023 MICHAEL AREVALO, [facility] 4 16:38:47 Syncope Active 2023 MICHAEL AREVALO, [facility] 4 16:38:56 Mild intermittent asthma Active [address], [place] [address] , [facility] 4 12:09:20 Onychomycosis Active [address], [place] [address] , [facility] 4 12:27:52 Problem Notes None recorded. Medical Equipment None Reported. Allergies Allergen ID Allergen Name Allergen Category Reaction Reaction Severity Criticality Documentation Date Start Date Code Code System Note Provider Name and Address Organization Details Recorded Time 50505 cephalexi n monohydra te medicatio n nausea moderate Not available 05/07/20232021 62831 8 RxNorm nause a, vomit ing Aller gyRea ction : 'naus ea, vomit ing'; Not Available [facility] 3 16:25:55 12116 hydrocodo ne Not available confusion Not available high 01/27/2024 5489 RxNorm psych osis MICHAEL JOHNSTON, [facility] 4 15:12:26 87274 methocarb cal medicatio n anaphylax is severe high 01/27/2024 6845 RxNorm MICHAEL JOHNSTON, [facility] 4 15:12:52 38221 tramadol medicatio n hives moderate high 01/27/2024 19108 RxNorm MICHAEL JOHNSTON, [facility] 4 15:13:24 50420 Non-stero idal anti-infl ammatory agent (product) medicatio n hives severe high 01/27/2024 16249 005 SNOMED MICHAEL JOHNSTON, [facility] 4 15:13:48 Medications Name Sig Start Date Stop Date Status Note LastModified by Organization Details LastModified Time amoxicill in 500 mg capsule TAKE ONE CAPSULE BY MOUTH THREE TIMES A DAY FOR 7 DAYS 02/06 completed Not Available Not Available Not Available atorvasta tin 10 mg tablet TAKE ONE TABLET BY MOUTH AT BEDTIME active Not Available Not Available No t Available aspirin 325 mg tablet 01/24 completed Not Available Not Available Not Available benzonata te 200 mg capsule TAKE ONE CAPSULE BY MOUTH TWICE A DAY NEEDED 08/12 completed Not Available Not Available Not Available hydrocodo ne 5 mg-acetam inophen 325 mg tablet 01/26 completed Not Available Not Available Not Available sildenafi l 100 mg tablet Take 1/2 tablet by mouth daily as needed 1 hour prior to sexual activity 2021 active Not Available Not Available Not Avai lable amoxicill in 500 mg tablet Take 4 tabs by mouth 1 hour prior to dental procedur e 03/16 completed Not Available Not Available Not Available acetamino phen ER 650 mg tablet,ex tended release TAKE ONE TABLET BY MOUTH THREE TIMES A DAY NEEDED FOR MCKENNA PAIN active Not Available Not Available No t Available magnesium oxide 400 mg (241.3 mg [...] mg tablet,ex tended release 24 hr TAKE ONE TABLET BY MOUTH EVERY DAY active Not Available Not Available No t Available albuterol sulfate HFA 90 mcg/actua tion aerosol inhaler INHALE TWO PUFFS BY MOUTH EVERY 4 TO 6 HOURS NEEDED 2023 active Not Available Not Available Not Avai lable doxycycli ne hyclate 100 mg tablet Take 1 tab by mouth twice daily 01/15 completed Not Available Not Available Not Available ipratropi um bromide 21 mcg (0.03 %) nasal spray USE ONE SPRAY IN EACH NOSTRIL TWO TIMES A DAY active Not Available Not Available No t Available diazepam 5 mg tablet TAKE ONE TABLET [...] % eye drops in a dropperet te INSTILL 1 DROP INTO BOTH EYES TWICE A DAY active Not Available Not Available No t Available Fish Oil 1,000 mg capsule take 1 cap twice daily 01/04 completed Not Available Not Available Not Available Cialis 10 mg tablet Take 1 by [...] ONE TABLET BY MOUTH TWICE A DAY active Not Available Not Available No t Available baclofen 5 mg tablet Take 1 tablet 3 times a day by oral route. 01/26 completed [facility] discharg e Not Available Not Available [...] Details Last Updated DateTime 4 173.99 cm 36 kg/m2 883892. 17 g 97.1 [degF] 97 % 97 % 74 /min 130 mm[Hg] 74 mm[Hg] YOLANDA GRIJALVA [facility] 15:09:44 Social History Question Answer Notes LastModified by Organizat ion Details LastModified Time Tobacco Smoking Status Former [facility] 08/12/2023 10:50:44 When Did You [...] Name and Address Organization Details Recorded Time Pneumococcal conjugate PCV20, polysaccharide NYG227 conjugate, adjuvant, PF 02/08/2024 completed [facility] 02/08/2024 12:44:02 Td (adult), 5 Lf tetanus toxoid, preservative free, adsorbed 09/13/2018 completed Not Available [facility] 05/07/2023 05:38:43 Tdap 07/24/2008 completed Not Available [facility] 05:38:44 Tdap 12/15/2006 completed Not Available [facility] 05:38:44 zoster live 06/15/2011 completed Not Available [facility] 05/07/2023 05:38:44 Pneumococcal conjugate PCV 13 06/18/2015 completed Not Available [facility] 05/07/2023 05:38:44 Influenza, high-dose, trivalent, PF 03/16/2018 completed Not Available [facility] 05/07/2023 05:38:44 Influenza, split virus, trivalent, preservative 03/27/2015 completed Not Available [facility] 05/07/2023 05:38:44 Influenza, split virus, trivalent, preservative 04/17/2016 completed Not Available [facility] 05/07/2023 05:38:44 Influenza, split virus, quadrivalent, preservative 03/15/2017 completed Not Available [facility] 05/07/2023 05:38:44 Influenza, MDCK, quadrivalent, PF 05/01/2019 completed Not Available [facility] 05/07/2023 05:38:45 zoster recombinant 10/26/2020 completed Not Available [facility] 05/07/2023 05:38:45 zoster recombinant 12/25/2020 completed Not Available [facility] 05/07/2023 05:38:45 Influenza, high-dose, quadrivalent, PF 04/14/2022 completed Not Available [facility] 05/07/2023 05:38:45 Influenza, high-dose, quadrivalent, PF 04/23/2020 completed Not Available [facility] 05/07/2023 05:38:45 COVID-19, mRNA, LNP-S, PF, 100 mcg/0.5mL dose or 50 mcg/0.25mL dose 08/15/2020 completed Not Available [facility] 05/07/2023 05:38:45 COVID-19, mRNA, LNP-S, PF, 100 mcg/0.5mL dose or 50 mcg/0.25mL dose 09/13/2020 completed Not Available [facility] 05/07/2023 05:38:45 COVID-19, mRNA, LNP-S, PF, 100 mcg/0.5mL dose or 50 mcg/0.25mL dose 04/14/2022 completed Not Available [facility] 05/07/2023 05:38:45 COVID-19, mRNA, LNP-S, PF, 100 mcg/0.5mL dose or 50 mcg/0.25mL dose 04/22/2021 completed Not Available [facility] 05/07/2023 05:38:45 varicella 10/26/2020 completed Not Available [facility] 05:38:45 SARS-COV-2 (COVID-19) vaccine, UNSPECIFIED 12/02/2021 completed Not Available [facility] 05/07/2023 05:38:45 pneumococcal polysaccharide PPV23 12/12/2010 completed Not Available [facility] 2022 05:38:46 influenza, unspecified formulation 04/06/2021 completed Not Available [facility] 05/07/2023 05:38:46 influenza, unspecified formulation 04/08/2023 completed Not Available [facility] 07/09/2023 05:33:24 SARS-COV-2 (COVID-19) vaccine, UNSPECIFIED 06/11/2023 completed MICHAEL JOHNSTON, [place] [facility]. 08/12/2023 08:38:03 Past Encounters Encounter ID Performer Location Encounter Start Date Encounter Closed Date Diagnosis/Indication Diagnosis SNOMED-CT Code [id number] ANALISA CHAVARRIA MD [address] [address] 01/27/2024 14:38:18 01/27/2024 15:57:37 Closed fracture of fourth thoracic vertebra [id number] 02 Health Concerns Section Related Observation LastModified by Organization Detai ls LastModified Time None Recorded Concern Status LastModified by Organization Details LastModified Time None Recorded Payers Encounter Date Sequence Insurance Name Policy Number Policy Leong Covered Member ID Leong Member ID Guarantor Name 01/27/2024 2 [employer] Nakul Sam [id number] Nakul Sam 01/27/2024 1 [place] [employer] Nakul Sam [id number] Nakul Sam Notes Date Note Type Note Provider Name and Address Organization Details Recorded Time 01/27/2024 text/html HPI Notes: Chayito nt here for hospital follow-up. He had a orthostatic cause single episode at home. Fell, T4 fracture. Was kept in hospital because intractable pain. Recent discharge, was given some tramadol, as well as it appears baclofen. Has had some side effects with them. Has been managing escalated with simply Tylenol. On blood thinners cannot take ibuprofen. Pain is mid upper back. Does not radiate. No headache or neck pain. No coughing congestion or dyspnea. No abdominal pain. No radicular symptoms of pain weakness numbness in his extremities ANALISA CHAVARRIA MD [address], [place], [address], [facility]. 01/30/2024 23:53:10
--- OUTSIDE RECORDS SUMMARY | 2024-02-08 21:56 | XMS_ITS | Encounter Summary ---
Author Organization [facility] Address [address] [place] [address] Care Team Providers Care Lug Loader Name Role Phone Garcia Gonzales MD Primary Care Provider [phone] Reason for Visit * Reason Onset Date Comments Diagnostic Imaging Report 12/09/2018 MRI re sults Encounter Details Date Type Department Care Team (Late st Contact Info) Description 12/09/[address] [facility] Neurosurgery - [address] [address] Caleb Ahumada MD [address] [place] [address], [address] [place] [phone] Diagnostic Imaging Report (MRI results) Social History [...] Brigette Moser RN - 12/09/2018 1548 EDT Rattling Machine Tender discussed with DAVIN Sethi. * Telephone Encounter - Cristy Winter - 12/09/2018 0803 EDT Patient had an MR Neuro yesterday at [facility]. Dr Romero office ([facility]) is faxing the results this AM. Dr Ahumada needs to look at the results soon Please get these reports to Dr Ahumada as soon as possible documented in this encounter Plan of Treatment Not on file documented as of this encounter Visit Diagnoses Not on filedocumented in this encounter Care Teams Lug Loader Relationship Specialty Start Date End Date Garcia Gonzales MD [address] [place] [address] PCP - General 09/03/09 documented as of this encounter
--- OUTSIDE RECORDS SUMMARY | 2024-02-08 21:56 | XMS_ITS | Encounter Summary ---
Author Organization [facility] Address [address] [place] [address] Care Team Providers Care Emergency Department Rn Name Role Phone Garcia Gonzales MD Primary Care Provider [phone] Reason for Referral * Radiology Services (Routine) - New Request Specialty Diagnoses / Procedures Referred By Contac t Referred To Contact Diagnoses Cervical arthritis with myelopathy Procedures CERVICAL SPINE 4 OR MORE VIEWS Caleb Ahumada MD [address] [address] Referral ID Status Reason Start Date Expiration Date V isits Requested Visits Authorized [id number] New Request 11/22/2018 1 1 * Radiology Services (Routine) - Authorization Not Required Specialty Diagnoses / Procedures Referred By Contac t Referred To Contact Diagnoses Cervical arthritis with myelopathy Procedures MR CERVICAL SPINE WO CONTRAST Caleb Ahumada MD [address] [address] Referral ID Status Reason Start Date Expiration Date Visits Requested Visits Authorized [id number] Authorization Not Required 11/22/2018 1 1 Reason for Visit * Reason Comments Back Pain LBP * Consult (Routine) - Closed Specialty Diagnoses / Procedures Referred By Contac t Referred To Contact Neurosurgery Diagnoses Lumbar stenosis Mehdi Matthews MD [address] [place] [address] Caleb Ahumada MD [address] [address] Referral ID Status Reason Start Date Expiration Date Visits Re quested Visits Authorized [id number] Closed 1 1 Encounter Details Date Type Department Care Team (Late st Contact Info) Description 11/22/2018 11:45 EDT Office Visit [facility] Neurosurgery - [address] [address] Caleb Ahumada MD [address] [place] [address] Cervical arthritis with myelopathy (Primary Dx); [...] SOCIAL HISTORY: 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 He does not use tobacco. REVIEW OF SYSTEMS: Notable for intermittent hand cramping when reading the newspaper, as well as subjective decrease in strength in both hands. PHYSICAL EXAMINATION: Reveals a stocky man in no outward distress. He has a steady gait. He has full power in the deltoid, biceps, triceps, logistics planning manager, iliopsoas, quadriceps, dorsiflexors, EHL, and plantar flexors. [...] were answered. Twenty-five minutes of this 50-minute yebq-tu-vvyl visit were spent in patient counseling. documented [...] HISTORY: M48.061-Spinal stenosis, lumbar region without neurogenic [id number]; lumbar stenosis COMPARISON: Lumbar MRI outside hospital [...] HISTORY: M48.061-Spinal stenosis, lumbar region without neurogenic [id number]; lumbar stenosis COMPARISON: Lumbar MRI outside hospital [...] 01/10/2019 added in this encounter Care Teams Emergency Department Rn Relationship Specialty Start Date End Date Garcia Gonzales MD [address] [place] [address] PCP - General 09/03/09 documented as of this encounter
--- OUTSIDE RECORDS SUMMARY | 2024-02-08 21:56 | XMS_ITS | Encounter Summary ---
Author Organization [facility] Address [address] [place] [address] Care Team Providers Care Child Nutrition Assistant Name Role Phone Garcia Gonzales MD Primary Care Provider [phone] Encounter Details Date Type Department Care Team (Late st Contact Info) Description 02/09/2019 14:20 EDT - 02/09/2019 23:59 EDT Hospital Encounter [address] [address] Caleb Ahumada MD [address] [place] [address], [address] [place] [phone] Discharge Disposition: Auto Discharge Social History Tobacco [...] on filedocumented in this encounter Care Teams Child Nutrition Assistant Relationship Specialty Start Date End Date Garcia Gonzales MD [address] [place] [address] PCP - General 09/03/09 documented as of this encounter
--- OUTSIDE RECORDS SUMMARY | 2024-02-08 21:56 | XMS_ITS | Encounter Summary ---
Author Organization [facility] Address [address] [place] [address] Care Team Providers Care Material Crew Supervisor Name Role Phone Garcia Gonzales MD Primary Care Provider [phone] Encounter Details Date Type Department Care Team (Late st Contact Info) Description 06/03/2015 Results Only [facility] [phone] Jasper Shelley, DO [address] [facility] [address] [place], [place] [phone] Social History Tobacco Use Types Packs/Day Years [...] SAM Ana Maria ? Accession #: ? [id number] ? : ? 1945 (Age: 70) ??M [...] [place] 06/04/2015 10:51 AM End of Report [facility] 06/03/2015 8:19 EST 06/04/2015 8:19 EST Jasper Shelley DO PATHOLOGY ORDER KAYLIE [facility] [address] [place] [address] documented in this encounter Visit Diagnoses Not on filedocumented in this encounter Care Teams Material Crew Supervisor Relationship Specialty Start Date End Date Garcia Gonzales MD [address] [place], [place] [id number] PCP - General 09/03/09 documented as of this encounter
--- OUTSIDE RECORDS SUMMARY | 2024-02-08 21:56 | XMS_ITS | Encounter Summary ---
Author Organization [facility] Address [address] [place] [address] Care Team Providers Care Talent Acquisition Assistant Name Role Phone Garcia Gonzales MD Primary Care Provider [phone] Encounter Details Date Type Department Care Team (Late st Contact Info) Description 12/20/2018 Results Only Imaging [facility] [phone] Unknown, Provider, Social History Tobacco Use Types [...] on filedocumented in this encounter Care Teams Talent Acquisition Assistant Relationship Specialty Start Date End Date Garcia Gonzales MD [address] [place] [address] PCP - General 09/03/09 documented as of this encounter
--- OUTSIDE RECORDS SUMMARY | 2024-02-08 21:56 | XMS_ITS | Encounter Summary ---
Author Organization [facility] Address [address] [place] [address] Care Team Providers Care Surface Plate Inspector Name Role Phone Garcia Gonzales MD Primary Care Provider [phone] Reason for Visit * Reason Onset Date Comments Suture / Staple Removal 01/25/2019 Encounter Details Date Type Department Care Team (Late st Contact Info) Description 01/25/2019 Telephone [facility] Neurosurgery - Main [address] [address] Brigette Moser RN Suture / [...] RN - 01/25/2019 1010 EDT Brandee from [facility] called for an to remove kathrine. Criminal Attorney advised 02/01/19 or after. documented in this encounter Plan of Treatment Not on file documented as of this encounter Visit Diagnoses Not on filedocumented in this encounter Care Teams Surface Plate Inspector Relationship Specialty Start Date End Date Garcia Gonzales MD [address] [place] [address] PCP - General 09/03/09 documented as of this encounter
--- OUTSIDE RECORDS SUMMARY | 2024-02-08 21:56 | XMS_ITS | Encounter Summary ---
Author Organization [facility] Address [address] [place] [address] Care Team Providers Care Gem Setter Name Role Phone Garcia Gonzales MD Primary Care Provider [phone] Reason for Visit * Reason Onset Date Comments Discuss Surgery 04/18/2019 Encounter Details Date Type Department Care Team (Late st Contact Info) Description 04/18/2019 Telephone [facility] Neurosurgery - [address] [address] Caleb Ahumada MD [address] [place] [address], [address] [place] [address] Discuss Surgery Social History Tobacco [...] Telephone Encounter - Awa Hurley - 04/18/2019 9115 EDT Patient left a message on our [...] on filedocumented in this encounter Care Teams Gem Setter Relationship Specialty Start Date End Date Garcia Gonzales MD [address] [place] [address] PCP - General 09/03/09 documented as of this encounter
--- OUTSIDE RECORDS SUMMARY | 2024-02-08 21:56 | XMS_ITS | Encounter Summary ---
Author Organization [facility] Address [address] [place] [address] Care Team Providers Care Grocery Store Manager Name Role Phone Garcia Gonzales MD Primary Care Provider [phone] Encounter Details Date Type Department Care Team (Late st Contact Info) Description 12/18/2009 10:50 EDT - 12/18/2009 23:59 EDT Hospital Encounter [facility] Ophthalmology - [address] [address] Shravan Narayanan MD [address] [facility], [address] [place] [phone] Discharge Disposition: Home or Self Care Social History Tobacco Use Types Packs/Day Years Used Date Smoking Tobacco: Never Assessed Sex and Gender Information Value Date Recorded Sex Assigned at Not on file Gender Identity Male 06/01/2019 13:40 EST Sexual Orientation Not on file documented as of this encounter Discharge Disposition Disposition Code Departure Means Destination Home or Self Residential documented in this encounter Progress Notes * Shravan Narayanan MD - 12/18/2009 0000 EDT DIV[facility]PHTHALMOLOGY [facility] December 18, 2009 Hernandez Mcleod OD [facility] [address], [address] [place] [address] Dear Hernandez: Your nice patient, Mr Sam, [...] any new change requires expeditious reassessment, i.e., [id number] to 48 hours. Thanks so much for letting me take part in the care of with this nice gentleman. Sincerely, Electronically Signed by Shravan Narayanan MD 12/23/2009 14:02 Shravan Narayanan MD [facility] [address] [place] [address] - Shravan Narayanan MD - LW Job ID: SM Doc ID: [id number] Ext Doc ID: [id number] cc: Hernandez Mcleod OD documented in this encounter Plan of Treatment Not on file documented as of this encounter Visit Diagnoses Not on filedocumented in this encounter Care Teams Grocery Store Manager Relationship Specialty Start Date End Date Garcia Gonzales MD [address] [place] [address] PCP - General 09/03/09 documented as of this encounter
--- OUTSIDE RECORDS SUMMARY | 2024-02-08 21:56 | XMS_ITS | Encounter Summary ---
Author Organization [facility] Address [address] [place] [address] Care Team Providers Care Embedded Linux Engineer Name Role Phone Garcia Gonzales MD Primary Care Provider [phone] Reason for Visit * Reason Onset Date Comments Discuss Surgery 01/16/2019 Encounter Details Date Type Department Care Team (Late st Contact Info) Description 01/16/2019 Telephone [facility] Neurosurgery - Main [place] [address] [place] [address] Brigette Moser RN Discuss Surgery Social History [...] Encounter - Brigette Moser RN - 01/16/2019 7720 EDT The patient phoned to clarify his [...] on filedocumented in this encounter Care Teams Embedded Linux Engineer Relationship Specialty Start Date End Date Garcia Gonzales MD [address] [place] [address] PCP - General 09/03/09 documented as of this encounter
--- OUTSIDE RECORDS SUMMARY | 2024-02-08 21:56 | XMS_ITS | Encounter Summary ---
Author Organization [facility] Address [address] [place] [address] Care Team Providers Care Middle Card Tender Name Role Phone Garcia Gonzales MD Primary Care Provider Reason for Visit * Reason Onset Date Comments Appointment Related 02/17/2019 Encounter Details Date Type Department Care Team (Late st Contact Info) Description 02/17/2019 Telephone [facility] - Main [place] [address] [place] [address] Brigette Moser RN Appointment Related Social History [...] Awa Hurley - 02/17/2019 1123 EDT Confirmed [facility] Neurology/Neurosurgery (Mehdi Matthews MD) was the referring office and faxednotes as requested. * Telephone Encounter - Brigette Moser RN - 02/17/2019 1044 EDT Call from outside provider requesting DC summary op notes. documented in this encounter Plan of Treatment Not on file documented as of this encounter Visit Diagnoses Not on filedocumented in this encounter Care Teams Middle Card Tender Relationship Specialty Start Date End Date Garcia Gonzales MD [address] [place] [address] PCP - General 09/03/09 documented as of this encounter
--- OUTSIDE RECORDS SUMMARY | 2024-02-08 21:56 | XMS_ITS | Encounter Summary ---
Author Organization [facility] Address [address] [place] [address] Care Team Providers Care Representative Personal Service Name Role Phone Garcia Gonzales MD Primary Care Provider [phone] Reason for Visit * Reason Comments Neck Pain Encounter Details Date Type Department Care Team (Late st Contact Info) Description 12/13/2018 11:00 EDT Office Visit [facility] Neurosurgery - [address] [address] Caleb Ahumada MD [address] [place] [address], [address] [place] [address] Cervical spondylosis with myelopathy and [...] answered. Twenty-five minutes of this 40 minute yvuj-kg-oary visit were spent in patient counseling. documented in this encounter Plan of Treatment Not on file documented as of this encounter Visit Diagnoses Diagnosis Cervical spondylosis with myelopathy and radiculopathy- Primary documented in this encounter Care Teams Representative Personal Service Relationship Specialty Start Date End Date Garcia Gonzales MD [address] [place] [address] PCP - General 09/03/09 documented as of this encounter
--- OUTSIDE RECORDS SUMMARY | 2024-02-08 21:56 | XMS_ITS | Encounter Summary ---
Author Organization [facility] Address [address] [place] [address] Care Team Providers Care Pediatric Pathologist Name Role Phone Garcia Gonzales MD Primary Care Provider [phone] Encounter Details Date Type Department Care Team (Late st Contact Info) Description 09/10/2009 12:47 EDT - 09/10/2009 23:[address] [facility] Ophthalmology - [address] [address] Shravan Narayanan MD [address] [facility], [address] [place] [phone] Discharge Disposition: Home or Self Care Social History Tobacco Use Types Packs/Day Years Used Date Smoking Tobacco: Never Assessed Sex and Gender Information Value Date Recorded Sex Assigned at Not on file Gender Identity Male 06/01/2019 13:40 EST Sexual Orientation Not on file documented as of this encounter Discharge Disposition Disposition Code Departure Means Destination Home or Self Long-Term documented in this encounter Procedure Notes * Shravan Narayanan MD - 09/10/2009 0000 EDT [facility]Y [facility] PROCEDURE REPORT SERVICE DATE: 09/10/2009 COLOR [...] Shravan Narayanan MD Retina and Vitreous Service [address] [place] [address] - Shravan Narayanan MD - GLT Job ID: SM Doc ID: [id number] Ext Doc ID: [id number] cc: documented in this encounter Consult Notes * Shravan Narayanan MD - 09/10/2009 0000 EDT DIVISION OF O[facility]THALMOLOGY [facility] CONSULTATION - 09/10/2009 [facility] [place] [address] Dear Hernandez: Your very nice patient, Mr [...] is no leakage consistent with either active HEALTH SERVICES DIRECTOR or with choroidal neovascularization. Assessment: 1. Pigmentary changes, juxtafoveal. 2. Tiny foveal pigment epithelial detachment, right. 3. No leakage consistent with CNVM or active HEALTH SERVICES DIRECTOR. Comment: Hernandez, this is an interesting patient. He does not have a lot of drusen and therefore I am thinking that probably this is not classic macular degeneration. He says that he saw you first aboutsix years ago and really did not see an wrap yarn sorter prior to that. I wonder if the [...] Shravan Narayanan MD [facility] Vitre[facility] Service [address] [place] [address] - Shravan Narayanan MD - [facility] Job ID: SM Doc ID: [id number] Ext Doc ID: [id number] cc: Deena Kincaid OD documented in this encounter Plan of Treatment Not on file documented as of this encounter Visit Diagnoses Not on filedocumented in this encounter Care Teams Pediatric Pathologist Relationship Specialty Start Date End Date Garcia Gonzales MD [address] [place] [address] PCP - General 09/03/09 documented as of this encounter
[2024-03-20 10:55] LABS: Fungal Culture & Smear See Comments
== END 2024-02-08 21:53 | disposition home or self-care (01) ==
LOC: NCHCN 21:52
PROVIDERS: PCP Family Medicine; Visit Provider Family Medicine
DX: B35.1 Tinea unguium (principal)
CPT/HCPCS: 87102; 87107; 87206

== ENCOUNTER 2024-07-19 13:32 | Outpatient (REF) | payer MEDICARE, OTHER, SELFPAY ==
--- OUTSIDE RECORDS SUMMARY | 2024-07-19 13:46 | XMS_ITS | Encounter Summary ---
Author Organization [facility] Address [address] [place] [address] Care Team Providers Care Switch House Operator Name Role Phone Garcia Gonzales MD Primary Care Provider [phone] Reason for Visit * Reason Onset Date Comments Appointment Related 10/02/2020 Encounter Details Date Type Department Care Team (Late st Contact Info) Description 10/02/2020 Telephone [facility] - [address] [address] Caleb Ahumada MD [address] [place] [address], [address] [place] [phone] Appointment Related Social History Tobacco Use Types Packs/Day Years Used Date Smoking Tobacco: Former Cigarettes 3 15 1 413 - 1303 Smokeless Tobacco: Never Comments:quit 41 years ago Alcohol Use Standard Drinks/Week Comments Not Asked 2 (1 standard drink = 0.6 oz pur e alcohol) PHQ-2 Answer Date Recorded PHQ-2 Score 0 01/28/2020 Interpersonal Safety Answer Date Record ed Physically Hurt Never 01/28/2020 Verbally Threaten Not on file 01/28/2020 Sex and Gender Information Value Date Recorded Sex Assigned at Not on file Legal Sex Male 18:22 EST Gender Identity Male 06/01/2019 13:40 EST Sexual Orientation Not on file documented as of this encounter Functional Status * Are you deaf or do you have serious difficulty hearing? Answer Date of Assessment Author No 01/19/2019 1:00 SAHRAT Brokolyn Murray RN * Are you blind or do you have serious difficulty seeing, even when wearing glasses? Answer Date of Assessment Author Yes 06/02/2019 7:00 EST Omer Nolasco RN * Do you have serious difficulty walking or climbing stairs? (5 years old or older) Answer Date of Assessment Author No 01/19/2019 1:00 EDT Brooklyn Murray RN * Do you have difficulty dressing or bathing? (5 years old or older) Answer Date of Assessment Author No 01/19/2019 1:00 EDT Brooklyn Murray RN * Because of a physical, mental, or emotional condition, does this person have difficulty doing errands alone such as visiting a doctor's office or shopping? Answer Date of Assessment Author Yes 07/01/2020 14:44 EST Siri Murray RN documented as of this encounter Mental Status * Because of a physical, mental, or emotional condition, do you have serious difficulty concentrating, remembering, or making decisions? (5 years old or older) Answer Entry Date Author No 01/19/2019 1:00 EDT Brooklyn Murray RN documented in this encounter Miscellaneous Notes * Telephone Encounter - Jessy Monte - 10/02/2020 1023 EDT Spoke with patients partner and asked if patient ever had his MRI? She said that he had not. Will send MRI order to [facility]. Asked that once patient is scheduled for MRI that he calland sched a telemedicine f/u with Dr. Ahumada. documented in this encounter Plan of Treatment Not on file documented as of this encounter Visit Diagnoses Not on filedocumented in this encounter Care Teams Switch House Operator Relationship Specialty Start Date End Date Garcia Gonzales MD [address] [place] [address] PCP - General 09/03/09 documented as of this encounter
--- OUTSIDE RECORDS SUMMARY | 2024-07-19 13:46 | XMS_ITS | Referral Summary ---
Author Organization [facility] Address [address] [place] [address] Care Team Providers Care Auto Fleet Maintenance Manager Name Role Phone Garcia Gonzales MD Primary Care Provider [phone] Allergies Active Allergy Reactions Criticality Noted Date Comments Cyclobenzaprine 02/09/2019 Pt does not remember-wild MARQUES? Methocarbamol Anaphylaxis,Other (See Comments) High 04/11/2019 stopped breathing Nsaids (Non-Steroidal Anti-Inflammatory Drug) GI upset 11/22/2018 Other - See Comments 11/22/2018 opoids feels like I'm flying around the room, hallucinations. Oxycodone 02/09/2019 Tramadol Low 01/18/2019 Hydrocodone-Acetaminophen Low 01/18/2019 Medications atorvastatin (LIPITOR) 10 mg tablet Take 10 [...] every 4 hours as needed for Heartburn. 01/21/20 Active Additional Information Patient not taking.Reported on 05/31/2019 docusate sodium (COLACE) 100 mg capsule Take 1 Cap by mouth 2 times daily. 01/21/20 Active Additional Information Patient not taking.Reported on [...] (Discomfort). Daily Max: 24 mg 30 Tab 06/04/20 Active Additional Information Patient not taking.Reported on 07/01/2020 magnesium hydroxide (MILK OF MAGNESIA) 400 mg/5 mL suspension Take 30 mL by mouth at bedtime. 06/04/20 Active ondansetron (ZOFRAN-ODT) 4 mg disintegrating tablet Take 1 Tab by mouth every 4 hours as needed for Nausea. 10 Tab 06/04/20 Active polyethylene glycol 3350 (MIRALAX) 17 gram packet Take 17 g by mouth daily. 06/04/20 Active Active Problems Problem Noted Date Diagnosed Date Spinal stenosis, lumbar region with neurogenic c laudication 06/04/2019 Cervical spondylosis with myelopathy 01/18/2019 Cervical spondylosis with radiculopathy 01/19/20 Social History Tobacco Use Types Packs/Day Years Used Date Smoking Tobacco: Former Cigarettes 3 15 1 963 - 4138 Smokeless Tobacco: Never Comments:quit 41 years ago [...] Index 34.31 07/01/2020 1444 EST Functional Status * Are you deaf or do you have serious difficulty hearing? Answer Date of Assessment Author No 01/19/2019 1:00 Brooklyn Ferguson RN * Are you blind or do you have serious difficulty seeing, even when wearing glasses? Answer Date of Assessment Author Yes 06/02/2019 7:00 EST Omer Nolasco RN * Do you have serious difficulty walking or climbing stairs? (5 years old or older) Answer Date of Assessment Author No 01/19/2019 1:00 Brooklyn Ferguson RN * Do you have difficulty dressing or bathing? (5 years old or older) Answer Date of Assessment Author No 01/19/2019 1:00 Brooklyn Ferguson RN * Because of a physical, mental, or emotional condition, does this person have difficulty doing errands alone such as visiting a doctor's office or shopping? Answer Date of Assessment Author Yes 07/01/2020 14:44 EST Siri Murray RN Mental Status * Because of a physical, mental, or emotional condition, do you have serious difficulty concentrating, remembering, or making decisions? (5 years old or older) Answer Entry Date Author No 01/19/2019 1:00 Brooklyn Ferguson RN Plan of Treatment Not on file Medical Devices Implanted Type Area Transportation Refrigeration Technician Device Identifier Shelf Expiration Date Model / Serial / Lot Screw Spinal P/Ax Solid Andres 7x60mm Ft Matrix [id number] - S0 - [id number] Implanted:Qty: 2 on 05/31/2019 by Caleb Ahumada MD at [facility] Screw Implant [employer] 639.76 0 / 0 / Screw Spinal P/Ax Solid Andres 8x60mm Ft Matrix [id number] - S0 - [id number] Implanted:Qty: 2 on 05/31/2019 by Caleb Ahumada MD at [facility] Screw Implant [employer] 639.86 0 / 0 / Screw Spinal P/Ax Solid Ti 5.5mm Matrix [id number] - S0 - [id number] Implanted:Qty: 6 on 05/31/2019 by Caleb Ahumada MD at [facility] Screw Implant [employer] 632.00 1 / 0 / Screw Spinal P/Ax Solid Ti 8x55mm Ft Matrix [id number] - S0 - [id number] Implanted:Qty: 1 on 05/31/2019 by Caleb Ahumada MD at [facility] Screw Implant [employer] 639.85 5 / 0 / Screw Spinal P/Ax Solid Ti 7x50mm Ft Matrix [id number] - S0 - [id number] Implanted:Qty: 1 on 05/31/2019 by Caleb Ahumada MD at [facility] Screw Implant [employer] 639.75 0 / 0 / End Cap Spinal Deformity 5.5mm Matrix [id number] - S0 - [id number] Implanted:Qty: 6 on 05/31/2019 by Caelb Ahumada MD at [facility] Spinal Implant [employer] 632.00 0 / 0 / Yosef Spinal Postr Cerv Ti Prebnt 5.5x65mm Matrix [id number] - S0 - [id number] Implanted:Qty: 1 on 05/31/2019 by Caleb Ahumada MD at [facility] Spinal Implant [employer] .06 5 / 0 / Yosef Spinal Lumbr Ti Prebnt 5.5x70mm Matrix [id number] - S0 - [id number] Implanted:Qty: 1 on 05/31/2019 by Caleb Ahumada MD at [facility] Spinal Implant N/A: Back [employer] 6.07 0 / 0 / Insurance [employer] MED[employer] ACO [place] Advance Directives For more information, please contact: [phone] Documents on File Type Date Recorded Patient Pre Fabricator Expl anation COLST/MOLST 06/09/2019 9:27 D NR/COLST [...] the discussion? Not Discusse d Care Teams Auto Fleet Maintenance Manager Relationship Specialty Start Date End Date Garcia Gonzales MD [address] [place] [address] PCP - General 09/03/09
--- OUTSIDE RECORDS SUMMARY | 2024-07-19 13:46 | XMS_ITS | Encounter Summary ---
Author Organization [facility] Address [address] [place] [address] Care Team Providers Care Bee Farmer Name Role Phone Garcia Gonzales MD Primary Care Provider [phone] Encounter Details Date Type Department Care Team (Late st Contact Info) Description 09/07/2019 Lab Requisition [facility] Pathology & Laboratory Medicine - [address] [address] Unknown, Provider, Social History Tobacco Use Types [...] shopping? Answer Date of Assessment Author Yes 02/09/2019 15:07 EDT Siri Murray RN documented as of this encounter Mental Status * Because of a physical, mental, or emotional condition, do you have serious difficulty concentrating, remembering, or making decisions? (5 years old or older) Answer Entry Date Author No 01/19/2019 1:00 EDT Brooklyn Murray RN documented in this encounter Plan of Treatment Not on file documented as of this encounter Procedures Procedure Name Priority Date/Time Associated Diagnosis Comments PSA TOTAL, DIAGNOSTIC Routine 09/06/2019 14:30 EDT documented in this encounter Results * PSA TOTAL, DIAGNOSTIC (09/06/2019 14:30 EDT) PSA 5.1 0.0 - 6.5 ng/mL 09/08/2019 10:06 EDT [facility] Blood VENOUS BLOOD / Unknown 09/06/2019 14:30 EDT 09/07/2019 15:59 EDT Narrative [facility] - 09/08/2019 10:06 EDT NOTE: Serum PSA concentration should not be interpreted as absolute evidence for the presence or absence of malignant disease. Assayed on Siemens ADVIA Centaur XPT using chemiluminescent technology.??Values obtained by using different assay methods cannot be used interchangeably. us Provider Unknown CHEMISTRY & BLOOD GAS ORDERA BLES Final Result [facility] [address] [place] [address] documented in this encounter Visit Diagnoses Not on filedocumented in this encounter Care Teams Bee Farmer Relationship Specialty Start Date End Date Garcia Gonzales MD [address] [place] [address] PCP - General 09/03/09 documented as of this encounter
--- OUTSIDE RECORDS SUMMARY | 2024-07-19 13:46 | XMS_ITS | Encounter Summary ---
Author Organization [facility] Address [address] [place] [address] Care Team Providers Care Enzyme Chemist Name Role Phone Garcia Gonzales MD Primary Care Provider [phone] Encounter Details Date Type Department Care Team (Late st Contact Info) Description 08/26/2021 Lab Requisition [facility] Pathology & Laboratory Medicine - [facility] [address] [place] [address] Marisol Florence, DO [address] [place], [place] [id number] Encounter for other general examination Social History [...] 01/19/2019 1:00 EDT Brooklyn Murray RN * Are you blind or [...] Author No 01/19/2019 1:00 Brooklyn Ferguson RN documented in this encounter Plan of [...] explore management options, if applicable. 08/28/2021 18:36 [facility] Final Diagnosis A. COLON, CECUM, POLYP, BIOPSY: - Fragments of tubular adenoma. B. COLON, 80 CM, POLYP, BIOPSY: - Fragments of tubular adenoma. C. COLON, 70 CM, POLYP, BIOPSY: - Tubular adenoma. D. COLON, 60 CM, POLYP, BIOPSY: - Tubular adenoma. 08/28/2021 18:36 [facility] Attestation By the signature below, the attending physician certifies that they have 1) personally conducted a gross and/or microscopic examination of the described specimen(s), and/or personally interpreted the results of laboratory testing of the described specimen(s), and 2) personally rendered or confirmed the above diagnosis. 08/28/2021 18:36 [facility] at 1836 Clinical History History of polyps; tics/int heme 08/28/2021 18:36 [facility] Gross Description A. Received in [...] D1. DAVIN DENG(ASCP) 08/26/2021 19:41 08/28/2021 18:36 [facility] Performing Lab [facility] 08/28/2021 18:36 [facility] Scanned Images 08/28/2021 18:36 [facility] Tissue ENTIRE COLON / Unknown 08/26/2021 9:48 EST 08/26/2021 16:28 EST Tissue specimen (specimen) COLON STRUCTURE / Unknown 08/26/2021 9:48 EST 08/26/2021 16:28 EST Tissue specimen (specimen) COLON STRUCTURE / Unknown 08/26/2021 9:48 EST 08/26/2021 16:28 EST Tissue specimen (specimen) COLON STRUCTURE / Unknown 08/26/2021 9:48 EST 08/26/2021 16:28 EST us Marisol M Stoiber DO PATHOLOGY ORDERABLES Final Re sult [facility] [address] [place] [address] documented in this encounter Visit Diagnoses Diagnosis Encounter for other general examination documented in this encounter Care Teams Enzyme Chemist Relationship Specialty Start Date End Date Garcia Gonzales MD [address] [place], [place] [id number] PCP - General 09/03/09 documented as of this encounter
--- OUTSIDE RECORDS SUMMARY | 2024-07-19 13:46 | XMS_ITS | Encounter Summary ---
Author Organization [facility] Address [address] [place] [address] Care Team Providers Care Labor Training Manager Name Role Phone Garcia Gonzales MD Primary Care Provider [phone] Reason for Visit * (Routine) - Receiving Office to Obtain Authorization Specialty Diagnoses / Procedures Referred By Lucia t Referred To Contact Procedures MR OUTSIDE IMAGES NEURO Unknown, Provider, MD Referral ID Status Reason Start Date Expiration Date Visits Requested Visits Authorized [id number] Receiving Office to Obtain Authorization 10/23/2020 1 1 Encounter Details Date Type Department Care Team (Latest Contact Info) Description 10/22/2020 - 10/22/2020 23:59 EDT Hospital Encounter [facility] Secondary [place] Discharge Disposition: Home [...] Author No 01/19/2019 1:00 EDT Brooklyn Murray , RN * Are you blind or do you have serious difficulty seeing, even when wearing glasses? Answer Date of Assessment Author Yes 06/02/2019 7:00 Omer Potter RN * Do you have serious difficulty [...] Date of Assessment Author Yes 07/01/2020 14:44 Siri Dela Cruz RN documented as of this encounter Mental Status * Because of a physical, mental, or emotional condition, do you have serious difficulty concentrating, remembering, or making decisions? (5 years old or older) Answer Entry Date Author No 01/19/2019 1:00 Brooklyn Ferguson RN documented in this encounter Medications at Time of Discharge acetaminophen (TYLENOL ARTHRITIS PAIN) 650 mg CR [...] 9:40 EDT This is a non-reportable exam. us Provider Unknown IMJaimee OTHER IMAGING ORDERABLES Final Result documented in this encounter Visit Diagnoses Not on filedocumented in this encounter Care Teams Labor Training Manager Relationship Specialty Start Date End Date Garcia Gonzales MD [address] [place] [address] PCP - General 09/03/09 documented as of this encounter
--- OUTSIDE RECORDS SUMMARY | 2024-07-19 13:46 | XMS_ITS | Clinical Summary ---
Author Organization [facility] Address [address] [place] [address] Care Team Providers Care Website Optimization Strategist Name Role Phone Garcia Gonzales MD Primary Care Provider [phone] Allergies Active Allergy Reactions Criticality Noted Date [...] Daily Max: 24 mg 30 Tab 06/04/20 19 Active Additional Information Patient not taking.Reported on 07/01/2020 magnesium hydroxide (MILK OF MAGNESIA) 400 mg/5 mL suspension Take 30 mL by mouth at bedtime. 06/04/20 19 Active ondansetron (ZOFRAN-ODT) 4 mg disintegrating tablet Take 1 Tab by mouth every 4 hours as needed for Nausea. 10 Tab 06/04/20 19 Active polyethylene glycol 3350 (MIRALAX) 17 gram packet Take 17 g by mouth daily. 06/04/20 19 Active Active Problems Problem Noted Date Diagnosed [...] REMOVAL WITH IMPLANT 06/28/2014 - 06/27/2015 Bilateral NM ARTHRODES[facility]2019 Spine Lumbar/N/A Spine Lumbar/N/A Spine Lumbar/N/A Spine Lumbar/N/A Spine Lumbar/N/A lumbar laminectomy L1-2 through L4-5, L3-5 instrumented fusion with the use or possible use of allograft performed by Caleb Ahumada MD at [facility] [place] Medical devices from this surgery are in the Medical Devices section. NM ARTHRODESIS PST[facility]STLAT [facility] 05/31/2019 Spine Lumbar/N/A Spine Lumbar/N/A Spine Lumbar/N/A Spine Lumbar/N/A Spine Lumbar/N/A . performed by Caleb Ahumada MD at [facility] [place] Medical devices from this surgery are in the Medical Devices section. NM LAMINECTOMY W/O FFD > 2 VERT SEG LUMBAR 05/31/2019 Spine Lumbar/N/A Spine Lumbar/N/A Spine Lumbar/N/A Spine Lumbar/N/A Spine Lumbar/N/A . performed by Caleb Ahumada MD at [facility] [place] Medical devices from this surgery are in the Medical Devices section. NM POSTERIOR SEGMENTAL INSTRUMENTATION 3-6 VRT SEG 05/31/2019 Spine Lumbar/N/A Spine Lumbar/N/A Spine Lumbar/N/A Spine Lumbar/N/A Spine Lumbar/N/A . performed by Caleb Ahumada MD at [facility] [place] Medical devices from this surgery are in the Medical Devices section. NM ALLOGRAFT FOR SPINE SURGERY ONLY STRUCTURAL 05/31/2019 Spine Lumbar/N/A Spine Lumbar/N/A Spine Lumbar/N/A Spine Lumbar/N/A Spine Lumbar/N/A . performed by Caleb Ahumada MD at [facility] [place] Medical devices from this surgery are in the Medical Devices section. Medical History Medical History Date Comments Spinal stenosis Hyperlipidemia A-fib (HCC-CMS) dx in 2014, cont rolled well Asthma [...] Health Maintenance Due Date Last Done Comments Fall Risk Screening 2008 RSV Immunization ( o r 60+ Years) (1 - 1-dose 75+ series) 2018 COVID-19 Vaccine ( season) 2024 Medical Devices Implanted Type Area Chainstitch Binder Device Identifier Shelf Expiration Date Model / Serial / Lot Screw Spinal P/Ax Solid Andres 7x60mm Ft Matrix [id number] - S0 - [id number] Implanted:Qty: 2 on 05/31/2019 by Caleb Ahumada MD at [facility] Screw Implant [employer] 04.639.76 0 / 0 / Screw Spinal P/Ax Solid Andres 8x60mm Ft Matrix [id number] - S0 - [id number] Implanted:Qty: 2 on 05/31/2019 by Caleb Ahumada MD at [facility] Screw Implant [employer] 04.639.86 0 / 0 / Screw Spinal P/Ax Solid Ti 5.5mm Matrix [id number] - S0 - [id number] Implanted:Qty: 6 on 05/31/2019 by Caleb Auhmada MD at [facility] Screw Implant [employer] 04.632.00 1 / 0 / Screw Spinal P/Ax Solid Ti 8x55mm Ft Matrix [id number] - S0 - [id number] Implanted:Qty: 1 on 05/31/2019 by Caleb Ahumada MD at [facility] Screw Implant [employer] 04.639.85 5 / 0 / Screw Spinal P/Ax Solid Ti 7x50mm Ft Matrix [id number] - S0 - [id number] Implanted:Qty: 1 on 05/31/2019 by Caleb Ahumada MD at [facility] Screw Implant [employer] 639.75 0 / 0 / End Cap Spinal Deformity 5.5mm Matrix [id number] - S0 - [id number] Implanted:Qty: 6 on 05/31/2019 by Caleb Ahumada MD at [facility] Spinal Implant [employer] 632.00 0 / 0 / Yosef Spinal Postr Cerv Ti Prebnt 5.5x65mm Matrix [id number] - S0 - [id number] Implanted:Qty: 1 on 05/31/2019 by Caleb Ahumada MD at [facility] Spinal Implant [employer] 636.06 5 / 0 / Yosef Spinal Lumbr Ti Prebnt 5.5x70mm Matrix [id number] - S0 - [id number] Implanted:Qty: 1 on 05/31/2019 by Caleb Ahumada MD at [facility] Spinal Implant N/A: Back [employer] 636.07 0 / 0 / Insurance [employer] MED[employer] ACO [place] Advance Directives For more information, please contact: [phone] Documents on File Type Date Recorded Patient Lead Principal Technical Architect Expl anation COLST/MOLST 06/09/2019 9:27 D NR/COLST Advance Directive 07/17/2015 15:20 [place] [employer] n[place] Directive for Health Care signed 2015-06-14 [...] the discussion? Not Discusse d Care Teams Website Optimization Strategist Relationship Specialty Start Date End Date Garcia Gonzales MD [address] [place] [address] PCP - General 09/03/09
--- OUTSIDE RECORDS SUMMARY | 2024-07-19 13:46 | XMS_ITS | Encounter Summary ---
Author Organization [facility] Address [address] [place] [address] Care Team Providers Care Senior Hr Generalist Name Role Phone Garcia Gonzales MD Primary Care Provider [phone] Reason for Visit * Reason Onset Date Comments Appointment Related 03/27/2020 Encounter Details Date Type Department Care Team (Late st Contact Info) Description 03/27/[address] [address] Caleb Ahumada MD [address] [place] [address], [address] [place] [phone] Appointment Related Social History Tobacco Use Types [...] of Assessment Author No 01/19/2019 1:00 SAHRAT Brooklyn Murray RN * Are you blind or do you have serious difficulty seeing, even when wearing glasses? Answer Date of Assessment Author Yes 06/02/2019 7:00 EST Gaurav Omer wayne RN * Do you have serious difficulty [...] * Telephone Encounter - Awa Hurley - 03/27/2020 1358 EDT Patient called to schedule his follow up with Dr. Ahumada. Advised patient that Dr. Ahumada is not inthe office, but that he can see one of our LAW's instead. Confirmed appointment details below. Reviewed current visitor & welcome policy. Patient verbalized understanding and denied having any questions at this time. Location: [facility] Provider: Rosalva Finney NP Date: 05/10/20 Time: 1:20pm Arrival: 12:20pm for xrays documented in this encounter Plan of Treatment Not on file documented as of this encounter Visit Diagnoses Not on filedocumented in this encounter Care Teams Senior Hr Generalist Relationship Specialty Start Date End Date Garcia Gonzales MD [address] [place] [address] PCP - General 09/03/09 documented as of this encounter
--- OUTSIDE RECORDS SUMMARY | 2024-07-19 13:46 | XMS_ITS | Encounter Summary ---
Author Organization [facility] Address [address] [place] [address] Care Team Providers Care Personal Lines Account Manager Name Role Phone Garcia Gonzales MD Primary Care Provider [phone] Reason for Visit * Reason Onset Date Comments Appointment Related 06/27/2020 Encounter Details Date Type Department Care Team (Late st Contact Info) Description 06/27/2020 Telephone [facility] [address] [place] [address] Renea Petersen RN Appointment Related Social History [...] Telephone Encounter - Renea Petersen RN - 06/27/2020 1614 EST Spoke with patient to confirm following appointment details: Appointment date: 07/01/20 Appointment time: 1440-check in at 1340 for xrays Provider: Brandyn Patient is aware of the visitor policy and denied any covid symptoms. documented in this encounter Plan of Treatment Not on file documented as of this encounter Visit Diagnoses Not on filedocumented in this encounter Care Teams Personal Lines Account Manager Relationship Specialty Start Date End Date Garcia Gonzales MD [address] [place] [address] PCP - General 09/03/09 documented as of this encounter
--- OUTSIDE RECORDS SUMMARY | 2024-07-19 13:46 | XMS_ITS | Encounter Summary ---
Author Organization [facility] Address [address] [place] [address] Care Team Providers Care Bar Examiner Name Role Phone Garcia Gonzales MD Primary Care Provider [phone] Reason for Referral * Radiology Services (Routine) - Closed Specialty Diagnoses / Procedures Referred By Contac t Referred To Contact Diagnoses Lumbar stenosis with neurogenic claudication Procedures XR LUMBAR SPINE 4 OR MORE VIEWS Caleb Ahumada MD Phone: tel: fax: Referral ID Status Reason Start Date Expiration Date Visits Re quested Visits Authorized [id number] Closed 09/05/2019 1 1 Reason for Visit * Radiology Services (Routine) - Closed Specialty Diagnoses / Procedures Referred By Contac t Referred To Contact Diagnoses Lumbar stenosis with neurogenic claudication Procedures XR CERVICAL SPINE 6 OR MORE VIEWS XR CERVICAL SPINE 4-5 VIEWS Caleb Ahumada MD Phone: tel: fax: Referral ID Status Reason Start Date Expiration Date Visits Re quested Visits Authorized [id number] Closed 09/05/2019 1 1 Encounter Details Date Type Department Care Team (Latest Contact Info) Description 07/01/2020 13:31 EST - 07/01/2020 23:59 EST Hospital Encounter [facility] Radiology Xr - [facility] [address] [place] [address] Lumbar stenosis with neurogenic claudication Discharge Disposition: Home or Self Care Social History Tobacco Use Types Packs/Day Years Used Date Smoking Tobacco: Former Cigarettes 3 15 1 843 - 1978 Smokeless Tobacco: Never Comments:quit 39 [...] flexion orextension. Caleb Ahumada MD IMG DIAGNOSTIC IMAGING OR DERABLES Edited Result - Final * XR LUMBAR SPINE 4 OR MORE [...] flexion orextension. Caleb Ahumada MD IMG DIAGNOSTIC IMAGING OR DERABLES Edited Result - Final documented in this encounter Visit Diagnoses Diagnosis Lumbar stenosis with neurogenic claudication Spinal stenosis, lumbar region, with neurogenic claudication documented in this encounter Care Teams Bar Examiner Relationship Specialty Start Date End Date Garcia Gonzales MD [address] [place] [address] PCP - General 09/03/09 documented as of this encounter
--- OUTSIDE RECORDS SUMMARY | 2024-07-19 13:46 | XMS_ITS | Encounter Summary ---
Author Organization [facility] Address [address] [place] [address] Care Team Providers Care Rheologist Name Role Phone Garcia Gonzales MD Primary Care Provider [phone] Reason for Visit * Reason Comments Neck Pain Encounter Details Date Type Department Care Team (Late st Contact Info) Description 11/05/2020 10:00 EDT Telemedicine [facility] Neurosurgery - [address] [address] Caleb Ahumada MD [address] [facility], [address] [place] [address] Cervical spondylosis with myelopathy and [...] Date of Assessment Author Yes 06/02/2019 7:00 STU Omer Nolasco LAUREL wayne * Do you have serious difficulty walking [...] Brooklyn Ferguson RN documented in this encounter Progress Notes * Caleb Ahumada [...] Primary documented in this encounter Care Teams Rheologist Relationship Specialty Start Date End Date Garcia Gonzales MD [address] [place] [address] PCP - General 09/03/09 documented as of this encounter
--- OUTSIDE RECORDS SUMMARY | 2024-07-19 13:46 | XMS_ITS | Encounter Summary ---
Author Organization [facility] Address [address] [place] [address] Care Team Providers Care Electrical Systems Designer Name Role Phone Garcia Gonzales MD Primary Care Provider [phone] Reason for Visit * Reason Onset Date Comments Diagnostic Imaging Report 10/24/2020 MRI Appointment Related 10/24/2020 Encounter Details Date Type Department Care Team (Late st Contact Info) Description 10/24/2020 Telephone [facility] - [address] [phone] Caleb Ahumada MD [address] [facility], [address] [place] [address] Diagnostic Imaging Report (MRI 10/22/20 [...] Date Author No 01/19/2019 1:00 EDT Brooklyn Mruray RN documented in this encounter Miscellaneous Notes * Telephone Encounter - Connie Merritt - 10/24/2020 1519 EDT Patient calling to get the fur now that MRI was done 10/22/20 at [facility]. Please call. documented in this encounter Plan of Treatment Not on file documented as of this encounter Visit Diagnoses Not on filedocumented in this encounter Care Teams Electrical Systems Designer Relationship Specialty Start Date End Date Garcia Gonzales MD [address] [place] [address] PCP - General 09/03/09 documented as of this encounter
--- OUTSIDE RECORDS SUMMARY | 2024-07-19 13:46 | XMS_ITS | Encounter Summary ---
Author Organization [facility] Address [address] [place] [address] Care Team Providers Care Human Resources Receptionist Name Role Phone Garcia Gonzales MD Primary Care Provider [phone] Encounter Details Date Type Department Care Team (Late st Contact Info) Description 01/22/2020 Lab Requisition [facility] Pathology & Laboratory Medicine - [address] [address] Outr Resulting Lab, Provider Social History Tobacco Use Types Packs/Day Years Used Date Smoking Tobacco: Former Cigarettes 3 15 1 173 - 2584 Smokeless Tobacco: Never Comments:quit 41 years ago [...] of Assessment Author No 01/19/2019 1:00 EDT Trevor, Brooklyn , RN * Because of a physical, mental, [...] 01/19/2019 1:00 EDT Brooklyn Murray , RN documented in this encounter Plan of Treatment Not on file documented as of this encounter Procedures Procedure Name Priority Date/Time Associated Diagnosis Comments PTH INTACT Routine 01/22/2020 9:02 EDT documented in this encounter Results * PTH INTACT (01/22/2020 9:02 EDT) Intact PTH 27 19 - 88 pg/mL 01/23/2020 9:16 EDT [facility] Blood VENOUS BLOOD / Unknown 01/22/2020 9:02 EDT 01/22/2020 15:57 EDT us Provider Outr Resulting Lab CHEMISTRY & BLOOD GA S ORDERABLES Final Result [facility] [address] [place] [address] documented in this encounter Visit Diagnoses Not on filedocumented in this encounter Care Teams Human Resources Receptionist Relationship Specialty Start Date End Date Garcia Gonzales MD [address] [place], [place] [id number] PCP - General 09/03/09 documented as of this encounter
--- OUTSIDE RECORDS SUMMARY | 2024-07-19 13:46 | XMS_ITS | Encounter Summary ---
Author Organization [facility] Address [address] [place] [address] Care Team Providers Care Mechanical Pencils Assembler Name Role Phone Garcia Gonzales MD Primary Care Provider [phone] Reason for Visit * Reason Comments Follow-up L3-5 fusion Encounter Details Date Type Department Care Team (Late st Contact Info) Description 07/01/2020 14:40 EST Office Visit [facility] Neurosurgery - [address] [address] Caleb Ahumada MD [address] [place] [address], [address] [place] [phone] Cervical arthritis with myelopathy (Primary Dx) Social [...] EST documented in this encounter Functional Status * Are you [...] of 5 in the deltoid, biceps, triceps, education intern, iliopsoas, quadriceps, dorsiflexors, plantar flexors. There is [...] Primary documented in this encounter Care Teams Mechanical Pencils Assembler Relationship Specialty Start Date End Date Garcia Gonzales MD [address] [place] [address] PCP - General 09/03/09 documented as of this encounter
--- OUTSIDE RECORDS SUMMARY | 2024-07-19 13:46 | XMS_ITS | Encounter Summary ---
Author Organization [facility] Address [address] [place] [address] Care Team Providers Care Upset Welding Machine Operator Name Role Phone Garcia Gonzales MD Primary Care Provider [phone] Reason for Referral * Radiology Services (Routine) - Closed Specialty Diagnoses / Procedures Referred By Contac t Referred To Contact Diagnoses Lumbar stenosis with neurogenic claudication Procedures XR LUMBAR SPINE 4 OR MORE VIEWS Caleb Ahumada MD Phone: tel: fax: Referral ID Status Reason Start Date Expiration Date Visits Re quested Visits Authorized [id number] Closed 09/05/2019 1 1 Reason for Visit * Reason Comments Back Pain LBP Encounter Details Date Type Department Care Team (Late st Contact Info) Description 09/05/2019 11:30 EDT Post-op Visit [facility] Neurosurgery - [address] [address] Caleb Ahumada MD [address] [facility], [address] [place] [phone] Lumbar stenosis with neurogenic claudication (Primary Dx) [...] Brooklyn Murray RN documented in this encounter Progress Notes * Caleb Ahumada MD - 09/05/2019 1130 EDT 8 months sp C4-T2 fusion and C7-T2 decompression/synovial cyst removal 3 months sp L1-5 decompression and L3-5 instrumented fusion Presents in follow-up. No pain to speak of. KAMILLA 4/50, VAS 0/0/0/0. Hand still a bit weak - using hand mounter strengthening devices as home. Balance OK. Elected [...] claudication documented in this encounter Care Teams Upset Welding Machine Operator Relationship Specialty Start Date End Date Garcia Gonzales MD [address] [place] [address] PCP - General 09/03/09 documented as of this encounter
--- OUTSIDE RECORDS SUMMARY | 2024-07-19 13:46 | XMS_ITS | Encounter Summary ---
Author Organization [facility] Address [address] [place] [address] Care Team Providers Care Solid State Tester Name Role Phone Garcia Gonzales MD Primary Care Provider [phone] Encounter Details Date Type Department Care Team (Late st Contact Info) Description 03/03/2024 Lab Requisition [facility] Pathology & Laboratory Medicine - [facility] [address] [place] [address] Isaac Childers MD [address] [place], [place] [id number] Encounter for other general examination Social History [...] Procedure Name Priority Date/Time Associated Diagnosis Comments MOLD IDENTIFICATION Today 02/08/2024 1 3:00 EDT Encounter for other general examination documented in this encounter Results * MOLD IDENTIFICATION (02/08/2024 13:00 EDT) Organism ID Mold 03/17/2024 11:23 EDT [facility] Comment:Sterile mold (no donovan gnostic reproductive structures present), likely an environmental contaminant. Mold ENTIRE NAIL BED / Unknown 02/08/2024 13:00 EDT 03/03/2024 18:27 EDT us Isaac Childers MD MICROBIOLOGY - GENERAL ORDERABLE S Final Result [facility] [address] [place] [address] documented in this encounter Visit Diagnoses Diagnosis Encounter for other general examination documented in this encounter Care Teams Solid State Tester Relationship Specialty Start Date End Date Garcia Gonzales MD [address] [place], [place] [phone] PCP - General 09/03/09 documented as of this encounter
--- OUTSIDE RECORDS SUMMARY | 2024-07-19 13:46 | XMS_ITS | Encounter Summary ---
Author Organization [facility] Address [address] [place] [address] Care Team Providers Care Coffee Break Attendant Name Role Phone Garcia Gonzales MD Primary Care Provider [phone] Encounter Details Date Type Department Care Team (Latest Contact Info) Description 07/01/2020 Travel Social History Tobacco Use Types Packs/Day Years Used Date Smoking Tobacco: Former Cigarettes 3 15 1 253 1977 Smokeless Tobacco: Never Comments:quit 41 years [...] Answer Entry Date Author No 01/19/2019 1:00 SAHRAT Brooklyn Murray RN documented in this encounter Plan of Treatment Not on file documented as of this encounter Visit Diagnoses Not on filedocumented in this encounter Care Teams Coffee Break Attendant Relationship Specialty Start Date End Date Garcia Gonzales MD [address] [place] [address] PCP - General 09/03/09 documented as of this encounter
--- OUTSIDE RECORDS SUMMARY | 2024-07-19 13:46 | XMS_ITS | Encounter Summary ---
Author Organization [facility] Address [address] [place] [address] Care Team Providers Care Condenser Operator Name Role Phone Garcia Gonzales MD Primary Care Provider [phone] Reason for Visit * Reason Onset Date Comments Appointment Related 06/19/2020 Encounter Details Date Type Department Care Team (Late st Contact Info) Description 06/19/[address] [address] Caleb Ahumada MD [address] [place] [address], [address] [place] [phone] Appointment Related Social History Tobacco Use Types [...] of Assessment Author Yes 06/02/2019 7:00 EST ManisteeOmer RN * Do you have serious difficulty [...] Telephone Encounter - Lizz Adrian - 06/19/2020 4822 EST Confirmed the following appointment details with Nakul. He verbalized understanding and denied having any questions. 07/01/2020 - [facility] [place] Check in at 1:40pm at registration for xrays Appointment at 2:40pm with Dr. Rios Ahumada documented in this encounter Plan of Treatment Not on file documented as of this encounter Visit Diagnoses Not on filedocumented in this encounter Care Teams Condenser Operator Relationship Specialty Start Date End Date Garcia Gonzales MD [address] [place] [address] PCP - General 09/03/09 documented as of this encounter
--- OUTSIDE RECORDS SUMMARY | 2024-07-19 13:47 | XMS_ITS | Encounter Summary ---
Author Organization [facility] Address [address] [place] [address] Care Team Providers Care Marine Engine Machinist Name Role Phone Garcia Gonzales MD Primary Care Provider [phone] Reason for Visit * Reason Onset Date Comments Discuss Surgery 05/08/2019 Prep for surgery on 05/10 Encounter Details Date Type Department Care Team (Late st Contact Info) Description 05/08/2019 Telephone [facility] Neurosurgery - [address] [address] Caleb Ahumada MD [address] [place] [address], [address] [place] [address] Discuss Surgery (Prep for surgery [...] wearing glasses? Answer Date of Assessment Author No 01/19/2019 1:00 Brooklyn Ferguson RN * Do you have serious difficulty walking or climbing stairs? (5 years old or older) Answer Date of Assessment Author No 01/19/2019 1:00 EDT Trevor, Brooklyn , RN * Do you have difficulty dressing [...] given acheck in time as of yet. Ski Lift Mechanic advised that the schedule is under review [...] on filedocumented in this encounter Care Teams Marine Engine Machinist Relationship Specialty Start Date End Date Garcia Gonzales MD [address] [place] [address] PCP - General 09/03/09 documented as of this encounter
--- OUTSIDE RECORDS SUMMARY | 2024-07-19 13:47 | XMS_ITS | Encounter Summary ---
Author Organization [facility] Address [address] [place] [address] Care Team Providers Care Private Mortgage Banker Safe Name Role Phone Garcia Gonzales MD Primary Care Provider [phone] Reason for Referral * Follow Up (3 - 10 Business Days) - Receiving Office to Obtain Authorization Specialty Diagnoses / Procedures Referred By Lucia garcia Referred To Contact General Internal Medicine Diagnoses Hyponatremia Martín Gayle MD [address] [place] [address] Phone: tel: fax: Garcia Gonzales MD [address] [place] [address] Phone: tel: fax: Referral ID Status Reason Start Date Expiration Date Visits Requested Visits Authorized [id number] Receiving Office to Obtain Authorization Continuity of Care 06/06/20 19 1 1 Question Answer Reason for Request: F/U Hyponatremia Scheduling Comments (optional ? describe specific scheduling needs if applicable): 7 days Expected Discharge Date (Inpatient Only): 06/06/2019 * Consult (Routine) - Closed Specialty Diagnoses / Procedures Referred By Contjanina t Referred To Contact Neurosurgery Diagnoses Neurogenic claudication Alicia Marroquin MD [address] [place] [address] Phone: tel: fax: Caleb Ahumada MD Phone: tel: fax: Referral ID Status Reason Start Date Expiration Date V isits Requested Visits Authorized [id number] Closed Specialty Services Required 06/04/2019 1 1 Question Answer Reason for Request: lumbar fusion 4 wks * Referral (Routine/Next Available) - New Request Specialty Diagnoses / Procedures Referred By Contac t Referred To Contact Diagnoses Neurogenic claudication Alicia Marroquin MD [address] [place] [address] Phone: tel: fax: [facility] & [address] [address] Phone: tel: fax: Referral ID Status Reason Start Date Expiration Date Visits Requested Visits Authorized [id number] New Request Specialty Services Required 06/04/2019 1 1 Question Answer I certify that this patient is under my care and that I, or another Medicare allowed practitioner (DO TYLOR, LAW) working with me, had a [id number] encounter with this patient on this date: 06/04/2019 I further certify that the [id number] encounter was in whole or in part [...] heatlh care needs and plan of care Garciadorothy Alcantaraer The patient? s homebound status is related [...] stenosis, lumbar region with neurogenic claudication Procedures NJ ARTHRODESIS POSTERIOR/POSTEROLATERAL LUMBAR NJ SPINE FUSN,POST TECH,EA ADDNL SGMT NJ LAMINECTOMY,>2 SGMT,LUMBAR NJ POSTERIOR SEGMENTAL INSTRUMENTATION 3-6 VRT SEG NJ ALLOGRAFT FOR SPINE SURGERY ONLY STRUCTURAL lumbar laminectomy L1-2 through L4-5, L3-5 instrumented fusion with the use or possible use of allograft . . . . Referral ID Status Reason Start Date Expiration Date Visits Re quested Visits Authorized [id number] 1 1 Encounter Details Date Type Department Care Team (Late st Contact Info) Description 05/31/2019 6:03 EST - 06/06/2019 10:42 EST Hospital Encounter [facility] [address] [place] [address] Caleb Ahumada MD [address] [place] [address], [address] [place] [address] Neurogenic claudication (Primary Dx); Hyponatremia Discharge Disposition: Nursing Facility (Skilled) Social History Tobacco Use Types Packs/Day Years Used Date Smoking Tobacco: Former Cigarettes 3 15 1 003 - 1977 Smokeless Tobacco: Never Comments:quit 41 [...] Brooklyn Murray RN documented in this encounter Discharge Summaries * Martín Gayle [...] Post Op Visit with Caleb Ahumada MD [facility] (--) [address] [place] [address] ALICIA MARROQUIN MD 06/03/2019 8:02 Cosigned by Caleb Ahumada MD at 06/08/2019 16:03 EST documented in this encounter Discharge Instructions * [...] of this encounter Ordered Prescriptions Prescription Sig Dispense Quantity Refills Last Filled Start Date End Date polyethylene glycol 3350 (MIRALAX) 17 gram packet [...] every 4 hours as needed for Pain (Discomfort) . Daily Max: 24 mg 30 Tab 06/04/2019 documented in this encounter Discharge Disposition Disposition Code Departure Means Destination Nursing Facility (Skilled) S killed Nursing documented in this encounter Progress Notes * Shauna Gomez, PT - 06/06/[address] [facility] Rehabilitation Therapy Acute Therapy [facility] Physical Therapy Discontinue/Discharge Note Date of Service: 06/06/2019 Mobility Precautions Activity: Activity as tolerated Spinal Precautions: Spine A Surgery/No Brace SUBJECTIVE: Other Subjective Statements: N/A OBJECTIVE: PatientProfile: Patient is a 74 y.o. male admitted on 05/31/2019 secondary to Spinal stenosis, lumbar region with neurogenic claudication [M48.062] Spinal stenosis of lumbar region with neurogenic claudication [M48.062] The patient lives at [address] [place] [id number] Interventions Completed Today: Interventions Included: No interventions [...] at subacuterehab Short-Term Goals: na Long-Term Goals: Detention Goal Time Frame: 2 days to 2 [...] Services Comments: in Subacute rehab facility Pager: [phone] SHAUNA GOMEZ, PT 06/06/2019 12:25 * Dayami Frazier - 06/06/2019 1040 EST I met with the patient to review medicare IM and wish him well. He was sitting up brushing teeth and getting cleaned up. He feels ready to d/c to rehab today and is very pleased to get into the rehabof his choice. Pt discharging to [facility] via w/c van at [address] Kaila Toussaint will follow. MD report will be phoned to him @ [phone]. RN report will be phoned the facility rehab unit. Dayami Frazier RN/[facility] #[id number]. * Krystyna Terrazas, OT - 06/06/[address] [facility] Rehabilitation Therapy Acute Therapies [facility] - Occupational Therapy Discontinue/Discharge Note Date [...] Lower Body Dressing: Pt able to doff/don senior systems administrator socks using dressing stick and sock aid [...] functional mobility. Recommendation was thus made for [facility] stay to further address impairments and promote independence in BADLs, IADLs and functional mobility/transfers prior to returning home. Pt ultimately DC'ed to [facility]. GOALS: Discontinue all goals secondary to pt DC from hospital. Short Term Goals: N/A ?? Detention Goals: Vp Clinical Research Goal Time Frame Detention Goal Time Frame: 1-2 weeks Vp Clinical Research Goal 1 Goal: Will perform functional transfers to/from varying surfaces modified I to perform BADL or other functional activities. Detention Goal 2 Goal: Will perform LB dressing/self-care modified I. Detention Goal 3 Goal: Will perform UB dressing/self-care modified I. Vp Clinical Research Goal 4 Goal: Will perform toileting tasks min contact A. Vp Clinical Research Goal 5 Goal: Will recall and follow post surgery precautions without verbal reminders during OT sessions. Vp Clinical Research Goal 6 Goal: Will verbalize understanding of any OT recommendations. PLAN: Discontinue occupational therapy at [facility] acute care. Recommended Discharge Destination: Sub-acute rehabilitation Recommended Discharge Services: Occupational therapy at rehabilitation facility Recommended Discharge Equipment: Shower chair (if pt cannot find one he has), Restaurant Inspector (if pt cannot find one he has), Toilet aid (Toilet tongs provided by OT), Grab bars next to toilet Further equipment recommendations to be made by next care provider Pager: [phone] GERRI LAINEZ, 06/06/2019, 8:20 Krystyna Terrazas OTR/L, Pager: [phone] * Murray Gomes MD - 06/06/2019 0754 [...] Extraocular movements intact Face symmetric No drift Roofing Foreman 5/5 bl Elbow extension and flexion 5/5 [...] Gomes MD Neurosurgery resident 06/06/2019 7:54 Page 9022 with questions * Blayne Tirado - 06/05/2019 9048 EST Spiritual Care Note Re: Nakul Ana Maria Sam : 1945, AGE: 74 y.o. Room: [facility]/[id number] Nakul Sam who is listed as None [...] . Pt is in good spirit . Social Scientist provided listening presence.support Plan of Action: No Follow up necessary - Needs met Continued Family Support Continued Support from Social Scientist following patient Make a Referral to: Continued [...] Support Other Chaplain May ARROYO 131 Phone [phone] Spiritual Care is available 24 hours a day. Chaplains are available 24 hours a day. For routine consults please call and leave a message with the Spiritual Care Office ([phone]) and patients will be seen within 24 hours. For all emergent consults page the Jain or Interfaith on-call Social Scientist through PAS ([phone]). * Dayami Frazier - 06/05/2019 1523 EST Bed offer received from [facility] in [place], pt.'s first choice for REANAN. Facility notes that patient's last charted BM was 06/03. They ask that pt be medicated if necessaryto produce bm prior to his discharge tomorrow. Dr. Kaila Toussaint will follow. MD report should be phoned to him at [phone]. RN report to be phoned to the facility @ [phone]. NS team informed, COLST and PASRR in patient's chart and will be signed by team. Pt to go via W/C van. He will be picked up in the main lobby at 11am Wednesday 06/06. Dayami Frazier RN/[facility] #[id number]. * Dayami Frazier - 06/05/2019 1355 EST I met with the patient and his was at his bedside. Pt states that he wants the one at the [facility]. Neither could remember the name of the REANNA. Pt agreeable to be listed at all three REANNA's in [facility]. And will decide based on bed offers. I have listed. I will follow up with patient when bed offers are received. Plan for d/c to [facility] as soon as tomorrow. Dayami Frazier RN/[facility] #[id number]. * Shauna Gomez, PT - 06/05/[address] [facility] Rehabilitation Therapy Acute Therapies [facility] Physical Therapy Encounter Note Date of [...] other consults recommended at this time Pager: [phone] SHAUNA GOMEZ, PT 06/05/2019 12:40 * Dayami Frazier - 06/05/2019 1200 EST Per PT today, patient in need of REANNA. He and are agreeable. I will see and list. Dayami Frazier RN/[facility] #[id number]. * Krystyna Terrazas, OT - 06/05/[address] [facility] Rehabilitation Therapy Acute Therapies [facility] - Occupational Therapy Encounter Note Date [...] return home with his and services including OT but only if his is able to confirm ability to provide 24/7 assist.If not then RE[facility]NA is recommended to further address impairments and promote independence in BADLs, IADLs and functional mobility/transfers. Plan Continue per plan of care Recommended Discharge Destination: Home with 18/01 assist and HH services vs. sub-acute rehabilitation if level of assist needed cannotbe provided- Confirmation needed from re: level of assist she can provide Recommended Discharge Services: See assessment above Recommended Discharge Equipment: Shower chair (if pt cannot find one he has), Restaurant Inspector (if pt cannot find one he has), Toilet aid (Toilet tongs provided by OT), Grab bars next to toilet Pager: [phone] VADIM TORO, GERRI, 06/05/2019, 11:12 Krystyna Terrazas OTR/L, Pager: [phone] * Martín Gayle MD - 06/05/2019 7161 EST Neurosurgery Daily Progress Note Problems/ Low [...] Extraocular movements intact Face symmetric No drift Roofing Foreman 5/5 bl Elbow extension and flexion 5/5 [...] Gayle MD Neurosurgery resident 06/05/2019 5:30 Page [id number] with questions * Paco Shauna Neel, PT - 06/04/[address] [facility] Therapy Acute Therapies [facility] Physical Therapy Encounter Note Date of [...] other consults recommended at this time Pager: [phone] SHAUNA GOMEZ PT 06/04/2019 13:20 * Shauna Gomez, PT - 06/04/[address] [facility] Rehabilitation Therapy Acute Therapy [facility] Physical Therapy Contact Note Date of [...] subacute rehab. Full note to follow Pager [phone] SHAUNA GOMEZ, PT 06/04/2019 10:23 * Luz Pierre, OT - 06/04/[address] [facility] Rehabilitation Therapy Acute Therapy [facility] Initial Evaluation Note Date of [...] neurogenic claudication [M48.062]. The patient lives at [address] [place] [address] History of Present Illness/Injury Per Progress Note [...] and tisseal SURGEON = Rios Ahumada MD SUSTAINABILITY COMMUNICATOR = Good Small MD ANESTHESIA = GETA [...] reported having a commode, shower chair and process description writer but was unsure where they were. ) Dressing/Grooming/Feeding Equipment: Dressing stick, Restaurant Inspector, Sock aid Mobility Equipment Mobility Equipment: Cane, Walker, Crutches Walker Specifics: Rolling walker - 2 wheels Caregiver Support Support Person: Spouse Amount of Support: 24 hour supervision Support Comment: Pt reported his was able to provide 24/ assist/supervision however pt's wifewas not here to confirm this. Lives With: Spouse Living Arrangement Comments: Pt and his have seperate homes however he will be moving into [facility] upon initial DC. Prior Level of Function Prior Level of Function Comment: Pt reported modified indpendence with BADLs. Pt used adapative equipment (sock aid, dressing stick, etc) to dress himself. Pt uses a rolling walker to mobilize as of recently. 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 Pt reported managing [...] Past Medical History: Diagnosis Date ??? A-fib ([facility]) dx in 2014, controlled well ??? 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 NJ ALLOGRAFT FOR SPINE SURGERY ONLY STRUCTURAL N/A 05/31/2019 . performed by Caleb Ahumada MD at [facility] OR ??? NJ ARTHRODESIS POSTERIOR/POSTEROLATERAL LUMBAR N/A 05/31/2019 lumbar laminectomy L1-2 through L4-5, L3-5 instrumented fusion with the use or possible use of allograft performed by Caleb Ahumada MD at [facility] OR ? ? NJ LAMINECTOMY,>2 SGMT,LUMBAR N/A 05/31/2019 . performed by Caleb Ahumdaa MD at [facility] OR ??? NJ POSTERIOR SEGMENTAL INSTRUMENTATION 3-6 VRT SEG N/A 05/31/2019 . performed by Caleb Ahumada MD at [facility] OR ??? NJ SPINE FUSN,POST TECH,EA ADDNL SGMT N/A 05/31/2019 . performed by Caleb Ahumada MD at [facility] OR Medications: Current Medications: Current [...] Lower Body Dressing: Pt able to doff/don senior systems administrator socks using dressing stick and sock aid [...] including option for REANNA and home with HH services including OT. Pt reported wanting to DC home but feels he is not able to DC home today. The patient was left in the: bed with the: Marcus anand in reachClaudia on Patient/Family Education: Activity/Work/Community: Activity/energy conservation, Pacing [...] to therapy session, During therapy session By: [id number] communication Notification Comments: Re: pt status Assessments: Need for Services Appropriateness for Occupational Therapy: The patient was appropriate for an occupational therapy evaluation today Mr. Sam was found to be appropriate for skilled acute OT services after presenting to [facility] s/pL1-L5 posterior decompression, L3-L5 instrumented [...] Factors: Unsafe Goals: Short Term Goals: N/A Vp Clinical Research Goals: Vp Clinical Research Goal Time Frame Detention Goal Time Frame: 1-2 weeks Vp Clinical Research Goal 1 Goal: Will perform functional transfers to/from varying surfaces modified I to perform BADL or other functional activities. Vp Clinical Research Goal 2 Goal: Will perform LB dressing/self-care modified I. Detention Goal 3 Goal: Will perform UB dressing/self-care modified I. Vp Clinical Research Goal 4 Goal: Will perform toileting tasks min contact A. Detention Goal 5 Goal: Will recall and follow post surgery precautions without verbal reminders during OT sessions. Vp Clinical Research Goal 6 Goal: Will verbalize understanding of any OT recommendations. Plan: Necessity: Occupational therapy will be provided by the occupational therapist and/or assistant research scientist when medically appropriate Active Engagement: Activity tolerance, [...] Grab bars next to toilet Dressing/Grooming/Feeding Equipment: John TORO, 06/04/2019, 10:35 LUZ PIERRE OT06/04/201914:09 Pager: [phone] * Martín Gayle MD - 06/04/2019 0434 [...] Extraocular movements intact Face symmetric No drift Roofing Foreman 5/5 bl Elbow extension and flexion 5/5 [...] Gayle MD Neurosurgery resident 06/04/2019 4:34 Page 8764 with questions * Martín Gayle MD - [...] Extraocular movements intact Face symmetric No drift Roofing Foreman 5/5 bl Elbow extension and flexion 5/5 [...] Gayle MD Neurosurgery resident 06/03/2019 5:01 Page 4984 with questions Cosigned by Tye Garcia MD at 06/03/2019 12:03 EST * Shauna Gomez, PT - 06/02/[address] [facility] Rehabilitation Therapy Acute Therapy [facility] Physical Therapy Contact Note Date of Service: 06/02/2019 PT attempted to see Mr. Sam at 0900. He is currently in the bathroom. Per discussion with Nursing, he required one assist for bed mobility and ambulation to br with RW PT will follow up later today Pager [phone] SHAUNA GOMEZ PT 06/02/2019 9:03 * Shauna Gomez, PT - 06/02/[address] [facility] Rehabilitation Therapy Acute Therapy [facility] Therapy Initial Evaluation Note Date of [...] neurogenic claudication [M48.062] The patient lives at [address] [place] [address] History of Present Illness / Injury Current Illness / Injury: 74M w PMH significant for C4-T2 decompression and fusion (Dr. Ahumaad, 12/2018) who presented to clinic with improvement [...] plans to stay at her house in [place] during his recovery General Prior Level of [...] Past Medical History: Diagnosis Date ??? A-fib ([facility]) dx in 2014, controlled well ??? [...] IMPLANT Bilateral 2014 ??? JOINT REPLACEMENT Left 2015 spinal-no problems(was told needed a long needle for spinal) ??? NECK SURGERY 12/2018 cevical spondylosis with myelopathy ??? NJ ALLOGRAFT FOR SPINE SURGERY ONLY STRUCTURAL N/A 05/31/2019 . performed by Caleb Ahumada MD at [facility] OR ??? NJ ARTHRODESIS POSTERIOR/POSTEROLATERAL LUMBAR N/A 05/31/2019 lumbar laminectomy L1-2 through L4-5, L3-5 instrumented fusion with the use or possible use of allograft performed by Caleb Ahumada MD at [facility] OR ? ? NJ LAMINECTOMY,>2 SGMT,LUMBAR N/A 05/31/2019 . performed by Caleb Ahumada MD at [facility] OR ??? NJ POSTERIOR SEGMENTAL INSTRUMENTATION 3-6 VRT SEG N/A 05/31/2019 . performed by Caleb Ahumada MD at [facility] OR ??? NJ SPINE FUSN,POST TECH,EA ADDNL SGMT N/A 05/31/2019 . performed by Caleb Ahumada MD at [facility] OR Medications Current Medications: Current [...] During therapy session, After therapy session By: [id number] communication About Mobility and Gait: Mobility status, [...] services pending progress Short-Term Goals:na Long-Term Goals: Vp Clinical Research Goal Time Frame: 2 days to 2 [...] by the physical therapist and/or physical therapist legal document assistant when medically appropriate Pt will benefit [...] Recommended Comments: pt has necessary equipment Pager: [phone] SHAUNA GOMEZ PT 06/02/2019 13:59 * Martín Gayle [...] symmetric Facial sensation grossly intact No drift Roofing Foreman 5/5 bl Elbow extension and flexion 5/5 [...] Gayle MD Neurosurgery resident 06/02/2019 5:10 Page 2407 with questions * Cristy Mckay RN - 06/01/2019 8716 EST Pt POD1 s/p L1-5 posterior decomp, L3-5 instrumented fusion, and dural tear repair, dry drsg c/d/i.Pt only tolerating raising HOB to 55 degrees so far, willing to try higher tomorrow. Pt rates lowerback pain at 7/10 consistently. Pt has class III tele orders for a-fib monitoring, required IV metoprolol previous night. #[id number] paged about need to renew or d/c tele and about new concern of L. Hand swelling after pulling out leaky IV. Martín d/c'd tele orders--notify [id number] if HR sustains in 120s-130s. assessed pt's L. Hand and wasnot concerned of DVT, no need for ultrasound/imaging. Pt now sleeping comfortably in bed, saline locked, hwang still in (per pt request) until able to sit higher to use urinal, call anand in reach, will continue to monitor. * Capo Camargo RN - 06/01/2019 6384 EST Initial Case Management/Social Work Assessment and [...] the patient? Spouse / significant other Is 24/ care available? Yes ADVANCED DIRECTIVES, POA &/or COLST IN PLACE: Healthcare Directive: Yes, patient has advance directive for healthcare treatment Type of Healthcare Directive: Health care treatment directive, Durable power of refrigeration service technician for healthcare Copy in Chart: Yes, previous copy on file @ [facility] DIRECTIVES FOR FINANCES: Directive For [...] Provider: [facility]: [id number] - [address] [place] [address] Home Health: Other: POST HOS[facility]ITAL TRANSITION PLAN: Patient will plan to discharge to his second house where his spouse lives. She will be his transportation and main source of support while recovering. Spouse lives at [address] [place] [address]/[place] [address] and patient will be going to this address after surgery and receiving home health services through [facility]. Patient has necessary DME, new front [...] symmetric Facial sensation grossly intact No drift Roofing Foreman 5/5 bl Elbow extension and flexion 5/5 [...] Gomes MD Neurosurgery resident 06/01/2019 9:49 Page 7668 with questions * Ankita Tran RN - [...] symmetric Facial sensation grossly intact No drift Roofing Foreman 5/5 bl Elbow extension and flexion 5/5 [...] MARROQUIN MD Neurosurgery resident 05/31/2019 8:38 Page 9058 with questions documented in this encounter H&P [...] documented below Kirk Martinez MD 05/31/2019 7:00 Cosigned by Caleb Ahumada MD at 06/08/2019 16:03 EST Source Note - EXCELLENCE SPECIALIST, SCAN 2 - 05/24/2019 16:30 EST documented in this encounter OR Notes * OR Surgeon - Caleb Ahumada MD - 05/31/2019 0000 EST OPERATIVE REPORT SERVICE DATE: 05/31/2019 SURGEON: Robi Ahumada MD SUSTAINABILITY COMMUNICATOR: Good Small MD PROCEDURES: 1. Spinal image [...] and prep performed surgical planning on the [employer] workstation. I then scrubbed and reenteredthe field and tested points, confirming a satisfactory registration. Starting on the right side at L3, a towboat pilot hole was drilled and a pedicle [...] / S Rios Ahumada MD cn Confirmation: [id number] Dictation ID: [id number] * Preprocedure Instructions - Tamy Corrales, LAUREL - 05/29/2019 1516 EST Nakul Sam has [...] Goal This Shift: Pt to discharge to [facility] today Note: Nursing Discharge Note D: Patient noted with discharge orders to: [facility]. A: Belongings collected and sent home with patient. Report called to Krystal at [facility] on the Rehab unit. R: Pt [...] 06/06/2019 0:35 * Plan of Care - Rene Mckeon RN - 06/05/2019 1426 EST Problem: [...] to monitor and adjust interventions as necessary. RENE MCKEON RN 06/05/2019 14:17 * Plan of [...] 06/05/2019 4:50 * Plan of Care - Rene Mckeon RN - 06/04/2019 1707 EST Problem: [...] well. Will continue to monitor and assist. RENE MCKEON RN 06/04/2019 17:02 * Plan of [...] 06/04/2019 3:48 * Plan of Care - Rene Mckeon RN - 06/03/2019 1858 EST Problem: [...] hyponatremia. Will continue to monitor and assist. RENE MCKEON RN 06/03/2019 18:54 * Plan of [...] 06/03/2019 6:12 * Plan of Care - Zaynab Del Castillo RN - 06/02/2019 1441 EST [...] ambulation. Will continue to monitor and mobilize. ZAYNAB DEL CASTILLO RN 06/02/2019 14:34 * Plan of Care - Zaynab Del Castillo RN - 06/01/2019 1855 EST [...] pain when moving HOB. Still no BM. ZAYNAB DEL CASTILLO RN 06/01/2019 18:38 * Plan [...] 06/01/2019 3:21 * Plan of Care - Pilar Nolasco RN - 05/31/2019 1852 EST Data: [...] continue to monitor and assess pt needs PILAR NOLASCO RN 05/31/2019 18:52 * Brief Op Note - Good Small MD - 05/31/2019 1515 EST BRIEF OP NOTE PRE-OP DIAGNOSIS = Lumbar stenosis, L4-L5 spondylolisthesis POST-OP DIAGNOSIS = same as above PROCEDURE = L1-L5 posterior decompression, L3-L5 instrumented fusion, repair of durotomy with nurolon and tisseal SURGEON = Rios Ahumada MD SUSTAINABILITY COMMUNICATOR = Good Small MD ANESTHESIA = GETA COMPLICATIONS = Durotomy FINDINGS = Bony and ligamentous stenosis EBL = 450 IVF = See anesthesia record UOP = See anesthesia record SPECIMENS/CULTURES = None DRAINS = None SKIN = Nylon DISPO = PACU then Floor HOB flat, Bedrest until tomorrow AM, Logroll okay Good Small MD Neurosurgery resident 05/31/2019 15:19 Page 2882 with questions documented in this encounter Plan [...] SCANNED (06/09/2019 9:05 EST) 06/09/2019 9:05 EST us Scan 2 [employer] PROCEDURE/MINOR SURGICAL OR DERABLES Final Result * (ABNORMAL) COMPLETE BLOOD COUNT AND DIFFERENTIAL (06/06/2019 6:41 EST) WBC 6.40 4.00 - 10.40 K/cmm 06/06/2019 7:01 [facility] RBC 2.72(L) 4.36 - 5.78 M/cmm 06/06/2019 7:01 [facility] Hemoglobin 8.3(L) 13.8 - 17.3 gm/dL 06/06/2019 7:01 [facility] HCT 24.1(L) 39.5 - 50.2 % 06/06/2019 7:01 [facility] MCV 89 81 - 95 fl 06/06/2019 7:01 [facility] MCH 30.5 27.6 - 33.0 pg 06/06/2019 7:01 [facility] MCHC 34.4 32.8 - 36.4 gm/dL 06/06/2019 7:01 [facility] RDW-CV 13.9 <14.2 % 06/06/2019 7:01 [facility] RDW-SD 44.9 <46.0 fl 06/06/2019 7:01 [facility] PLT 269 141 - 377 K/cmm 06/06/2019 7:01 [facility] MPV 9.6 9.5 - 12.7 fl 06/06/2019 7:01 [facility] % Neutrophils 64.5 % 06/06/2019 7:01 [facility] % Lymphocytes 19.8 % 06/06/2019 7:01 [facility] % Monocytes 13.3 % 06/06/2019 7:01 [facility] % Eosinophils 1.3 % 06/06/2019 7:01 [facility] % Basophils 0.2 % 06/06/2019 7:01 [facility] % Immature Grans 0.9 % 06/06/20 19 7:01 [facility] Absolute Neutrophils 4.13 2.20 - 8.85 K/cmm 06/06/2019 7:01 [facility] Absolute Lymphocytes 1.27 1.09 - 3.30 K/cmm 06/06/2019 7:01 [facility] Absolute Monocytes 0.85(H) 0.10 - 0.80 K/cmm 06/06/2019 7:01 [facility] Absolute Eosinophils 0.08 0.03 - 0.61 K/cmm 06/06/2019 7:01 [facility] ABS Basophils 0.01 0.01 - 0.11 K/cmm 06/06/2019 7:01 [facility] Absolute Immature Grans 0.06 0.00 - 0.06 K/cmm 06/06/2019 7:01 [facility] Type of Differential: Auto 06/06/2019 7:01 [facility] Blood VENOUS BLOOD / Unknown Venipuncture / Unknown 06/06/2019 6:41 EST 06/06/2019 6:54 EST Murray Gomes MD PACKAGES & DNA PROBE OR DERABLES Final Result [facility] [address] [place] [address] * (ABNORMAL) ELECTROLYTES (06/06/2019 6:41 EST) Sodium 134(L) 136 - 145 mEq/L 06/06/2019 7:19 [facility] Potassium 3.6 3.5 - 5.0 mEq/L 06/06/2019 7:19 [facility] Chloride 99 96 - 110 mEq/L 06/06/2019 7:19 [facility] CO2 Total 28 22 - 32 mEq/L 06/06/2019 7:19 [facility] Blood VENOUS BLOOD / Unknown Venipuncture / Unknown 06/06/2019 6:41 EST 06/06/2019 6:54 EST us Murray Gomes MD CHEMISTRY & BLOOD GAS O RDERABLES Final Result [facility] [address] [place] [address] * ECG REPORT - SCANNED (06/05/2019 14:40 EST) 06/05/2019 14:4 0 EST us Scan 2 [employer] PROCEDURE/MINOR SURGICAL OR DERABLES Final Result * (ABNORMAL) COMPLETE BLOOD COUNT AND DIFFERENTIAL (06/03/2019 5:29 EST) WBC 10.99(H) 4.00 - 10.40 K/cmm 06/03/2019 6:24 [facility] RBC 2.98(L) 4.36 - 5.78 M/cmm 06/03/2019 6:24 [facility] Hemoglobin 8.8(L) 13.8 - 17.3 gm/dL 06/03/2019 6:24 [facility] HCT 26.2(L) 39.5 - 50.2 % 06/03/2019 6:24 [facility] MCV 88 81 - 95 fl 06/03/2019 6:24 [facility] MCH 29.5 27.6 - 33.0 pg 06/03/2019 6:24 [facility] MCHC 33.6 32.8 - 36.4 gm/dL 06/03/2019 6:24 [facility] RDW-CV 13.5 <14.2 % 06/03/2019 6:24 [facility] RDW-SD 43.8 <46.0 fl 06/03/2019 6:24 [facility] PLT 149 141 - 377 K/cmm 06/03/2019 6:24 [facility] MPV 10.9 9.5 - 12.7 fl 06/03/2019 6:24 [facility] % Neutrophils 78.6 % 06/03/2019 6:24 [facility] % Lymphocytes 12.5 % 06/03/2019 6:24 [facility] % Monocytes 7.8 % 06/03/2019 6:24 [facility] % Eosinophils 0.4 % 06/03/2019 6:24 [facility] % Basophils 0.1 % 06/03/2019 6:24 [facility] % Immature Grans 0.6 % 06/03/20 19 6:24 [facility] Absolute Neutrophils 8.64 2.20 - 8.85 K/cmm 06/03/2019 6:24 [facility] Absolute Lymphocytes 1.37 1.09 - 3.30 K/cmm 06/03/2019 6:24 [facility] Absolute Monocytes 0.86(H) 0.10 - 0.80 K/cmm 06/03/2019 6:24 [facility] Absolute Eosinophils 0.04 0.03 - 0.61 K/cmm 06/03/2019 6:24 [facility] ABS Basophils 0.01 0.01 - 0.11 K/cmm 06/03/2019 6:24 [facility] Absolute Immature Grans 0.07(H) 0.00 - 0.06 K/cmm 06/03/2019 6:24 [facility] Type of Differential: Auto 06/03/2019 6:24 [facility] Blood VENOUS BLOOD / Unknown Venipuncture / Unknown 06/03/2019 5:29 EST 06/03/2019 6:11 EST us Good Small MD PACKAGES & DNA PROBE ORDERA BLES Final Result [facility] [address] [place] [address] * (ABNORMAL) CREATININE (06/03/2019 5:29 EST) Creatinine 0.64(L) 0.66 - 1.25 mg/dL 06/03/2019 6:49 [facility] eGFR 95 >60 mL/min/1.7 3m2 06/03/2019 6:49 [facility] Comment:eGFR calculated usvera g CKD-EPI equation for non- Americans. Multiply eGFR by 1.16 for patients. Blood VENOUS BLOOD / Unknown Venipuncture / Unknown 06/03/2019 5:29 EST 06/03/2019 6:19 EST Good Small MD CHEMISTRY & BLOOD GAS ORDER KAYLIE Final Result Performing Organization Address City/[facility]/ZIP Co de Phone Number [facility] [address] [place] [address] * BUN (06/03/2019 5:29 EST) BUN 15 10 - 26 mg/dL 06/03/2019 6:49 [facility] Blood VENOUS BLOOD / Unknown Venipuncture / Unknown 06/03/2019 5:29 EST 06/03/2019 6:19 EST Good Small MD CHEMISTRY & BLOOD GAS ORDER KAYLIE Final Result Performing Organization Address City/[facility] Co de Phone Number [facility] [address] [place] [address] * (ABNORMAL) ELECTROLYTES (06/03/2019 5:29 EST) Sodium 128(L) 136 - 145 mEq/L 06/03/2019 6:49 [facility] Potassium 3.6 3.5 - 5.0 mEq/L 06/03/2019 6:49 [facility] Chloride 95(L) 96 - 110 mEq/L 06/03/2019 6:49 [facility] CO2 Total 30 22 - 32 mEq/L 06/03/2019 6:49 [facility] Blood VENOUS BLOOD / Unknown Venipuncture / Unknown 06/03/2019 5:29 EST 06/03/2019 6:19 EST Good Small MD CHEMISTRY & BLOOD GAS ORDER KAYLIE Final Result [facility] [address] [place] [address] * XR LUMBAR SPINE 2-3 VIEWS (06/02/2019 [...] the above interpretation andagree with the findings. us Alicia Marroquin MD IMG DIAGNOSTIC IMAGING ORDERA BLES Final Result * (ABNORMAL) COMPLETE BLOOD COUNT AND DIFFERENTIAL (06/02/2019 5:35 EST) WBC 13.38(H) 4.00 - 10.40 K/cmm 06/02/2019 6:35 [facility] RBC 3.22(L) 4.36 - 5.78 M/cmm 06/02/2019 6:35 [facility] Hemoglobin 9.7(L) 13.8 - 17.3 gm/dL 06/02/2019 6:35 [facility] HCT 28.7(L) 39.5 - 50.2 % 06/02/2019 6:35 [facility] MCV 89 81 - 95 fl 06/02/2019 6:35 [facility] MCH 30.1 27.6 - 33.0 pg 06/02/2019 6:35 [facility] MCHC 33.8 32.8 - 36.4 gm/dL 06/02/2019 6:35 [facility] RDW-CV 13.9 <14.2 % 06/02/2019 6:35 [facility] RDW-SD 45.2 <46.0 fl 06/02/2019 6:35 [facility] PLT 143 141 - 377 K/cmm 06/02/2019 6:35 [facility] MPV 11.2 9.5 - 12.7 fl 06/02/2019 6:35 [facility] % Neutrophils 80.3 % 06/02/2019 6:35 [facility] % Lymphocytes 10.3 % 06/02/2019 6:35 [facility] % Monocytes 8.7 % 06/02/2019 6:35 [facility] % Eosinophils 0.1 % 06/02/2019 6:35 [facility] % Basophils 0.1 % 06/02/2019 6:35 [facility] % Immature Grans 0.5 % 06/02/20 19 6:35 [facility] Absolute Neutrophils 10.73(H) 2.20 - 8.85 K/cmm 06/02/2019 6:35 [facility] Absolute Lymphocytes 1.38 1.09 - 3.30 K/cmm 06/02/2019 6:35 [facility] Absolute Monocytes 1.17(H) 0.10 - 0.80 K/cmm 06/02/2019 6:35 [facility] Absolute Eosinophils 0.01(L) 0.03 - 0.61 K/cmm 06/02/2019 6:35 [facility] ABS Basophils 0.02 0.01 - 0.11 K/cmm 06/02/2019 6:35 [facility] Absolute Immature Grans 0.07(H) 0.00 - 0.06 K/cmm 06/02/2019 6:35 [facility] Type of Differential: Auto 06/02/2019 6:35 [facility] Blood VENOUS BLOOD / Unknown Venipuncture / Unknown 06/02/2019 5:35 EST 06/02/2019 6:21 EST Good Small MD PACKAGES & DNA PROBE ORDERA BLES Final Result Performing Organization Address [facility] de Phone Number [facility] [address] [place] [address] * CREATININE (06/02/2019 5:35 EST) [facility] Creatinine 0.84 0.66 - 1.25 mg/dL 06/02/2019 6:55 [facility] eGFR 85 >60 mL/min/1.7 3m2 06/02/2019 6:55 [facility] Comment:eGFR calculated tio g CKD-EPI equation for non- Americans. Multiply eGFR by 1.16 for patients. Blood VENOUS BLOOD / Unknown Venipuncture / Unknown 06/02/2019 5:35 EST 06/02/2019 6:21 EST Good Small MD CHEMISTRY & BLOOD GAS ORDER KAYLIE Final Result Performing Organization Address [facility] Co de Phone Number [facility] [address] [place] [address] * BUN (06/02/2019 5:35 EST) BUN 16 10 - 26 mg/dL 06/02/2019 6:55 [facility] Blood VENOUS BLOOD / Unknown Venipuncture / Unknown 06/02/2019 5:35 EST 06/02/2019 6:21 EST Good Small MD CHEMISTRY & BLOOD GAS ORDER KAYLIE Final Result Performing Organization Address [facility] de Phone Number [facility] [address] [place] [address] * (ABNORMAL) ELECTROLYTES (06/02/2019 5:35 EST) Sodium 129(L) 136 - 145 mEq/L 06/02/2019 6:55 [facility] Potassium 4.0 3.5 - 5.0 mEq/L 06/02/2019 6:55 [facility] Chloride 96 96 - 110 mEq/L 06/02/2019 6:55 [facility] CO2 Total 28 22 - 32 mEq/L 06/02/2019 6:55 [facility] Blood VENOUS BLOOD / Unknown Venipuncture / Unknown 06/02/2019 5:35 EST 06/02/2019 6:21 EST Good Small MD CHEMISTRY & BLOOD GAS ORDER KAYLIE Final Result Performing Organization Address [facility] de Phone Number [facility] [address] [place] [address] * (ABNORMAL) COMPLETE BLOOD COUNT AND DIFFERENTIAL (06/01/2019 5:24 EST) WBC 10.88(H) 4.00 - 10.40 K/cmm 06/01/2019 6:02 [facility] RBC 3.43(L) 4.36 - 5.78 M/cmm 06/01/2019 6:02 [facility] Hemoglobin 10.3(L) 13.8 - 17.3 gm/dL 06/01/2019 6:02 [facility] HCT 30.5(L) 39.5 - 50.2 % 06/01/2019 6:02 [facility] MCV 89 81 - 95 fl 06/01/2019 6:02 [facility] MCH 30.0 27.6 - 33.0 pg 06/01/2019 6:02 [facility] MCHC 33.8 32.8 - 36.4 gm/dL 06/01/2019 6:02 [facility] RDW-CV 14.3(H) <14.2 % 06/01/2019 6:02 [facility] RDW-SD 46.1(H) <46.0 fl 06/01/2019 6:02 [facility] PLT 134(L) 141 - 377 K/cmm 06/01/2019 6:02 [facility] MPV 11.4 9.5 - 12.7 fl 06/01/2019 6:02 [facility] % Neutrophils 75.8 % 06/01/2019 6:02 [facility] % Lymphocytes 12.2 % 06/01/2019 6:02 [facility] % Monocytes 11.5 % 06/01/2019 6:02 [facility] % Eosinophils 0.0 % 06/01/2019 6:02 [facility] % Basophils 0.1 % 06/01/2019 6:02 [facility] % Immature Grans 0.4 % 06/01/20 19 6:02 [facility] Absolute Neutrophils 8.25 2.20 - 8.85 K/cmm 06/01/2019 6:02 [facility] Absolute Lymphocytes 1.33 1.09 - 3.30 K/cmm 06/01/2019 6:02 [facility] Absolute Monocytes 1.25(H) 0.10 - 0.80 K/cmm 06/01/2019 6:02 [facility] Absolute Eosinophils 0.00(L) 0.03 - 0.61 K/cmm 06/01/2019 6:02 [facility] ABS Basophils 0.01 0.01 - 0.11 K/cmm 06/01/2019 6:02 [facility] Absolute Immature Grans 0.04 0.00 - 0.06 K/cmm 06/01/2019 6:02 EST [facility] Type of Differential: Auto 06/01/2019 6:02 [facility] Blood VENOUS BLOOD / Unknown Venipuncture / Unknown 06/01/2019 5:24 EST 06/01/2019 5:51 EST Good Small MD PACKAGES & DNA PROBE ORDERA BLES Final Result Performing Organization Address City/[facility] Co de Phone Number [facility] [address] [place] [address] * CREATININE (06/01/2019 5:24 EST) Creatinine 0.79 0.66 - 1.25 mg/dL 06/01/2019 6:18 [facility] eGFR 87 >60 mL/min/1.7 3m2 06/01/2019 6:18 [facility] Comment:eGFR calculated tio plascencia CKD-EPI equation for non- Americans. Multiply eGFR by 1.16 for patients. Blood VENOUS BLOOD / Unknown Venipuncture / Unknown 06/01/2019 5:24 EST 06/01/2019 5:51 EST Good Small MD CHEMISTRY & BLOOD GAS ORDER KAYLIE Final Result Performing Organization Address [facility] Co de Phone Number [facility] [address] [place] [address] * BUN (06/01/2019 5:24 EST) BUN 15 10 - 26 mg/dL 06/01/2019 6:18 EST [facility] Blood VENOUS BLOOD / Unknown Venipuncture / Unknown 06/01/2019 5:24 EST 06/01/2019 5:51 EST Good Small MD CHEMISTRY & BLOOD GAS ORDER KAYLIE Final Result Performing Organization Address City/[facility] Co de Phone Number [facility] [address] [place] [address] * (ABNORMAL) ELECTROLYTES (06/01/2019 5:24 EST) Sodium 134(L) 136 - 145 mEq/L 06/01/2019 6:18 [facility] Potassium 4.1 3.5 - 5.0 mEq/L 06/01/2019 6:18 [facility] Chloride 102 96 - 110 mEq/L 06/01/2019 6:18 [facility] CO2 Total 27 22 - 32 mEq/L 06/01/2019 6:18 [facility] Blood VENOUS BLOOD / Unknown Venipuncture / Unknown 06/01/2019 5:24 EST 06/01/2019 5:51 EST us Good Small MD CHEMISTRY & BLOOD GAS ORDER KAYLIE Final Result Performing Organization Address City/State/[facility] Co de Phone Number [facility] [address] [place] [address] * XR LUMBAR SPINE 1 VIEW (05/31/2019 [...] malpositioning or failure. Nounexpected radiopaque foreign bodies. us Caleb CARSON DIAGNOSTIC IMAGING OR DERABLES Final Result * FL C-ARM 0-1 HOUR (05/31/2019 10:28 EST) us Caleb CARSON OTHER IMAGING ORDERAB LES Final Result * XR LUMBAR SPINE 2-3 VIEWS (05/31/2019 10:27 EST) Narrative 07/14/2019 10:29 EST This is a non-reportable exam. Caleb CARSON DIAGNOSTIC IMAGING OR DERABLES Final Result * XR LUMBAR SPINE 1 VIEW (05/31/2019 [...] the above interpretation andagree with the findings. us Caleb Ahumada MD IMG DIAGNOSTIC IMAGING OR DERABLES Final Result * XR LUMBAR SPINE 1 VIEW (05/31/2019 [...] the L2 spinous process, directed towards the [id number] and L3 vertebral body. IMPRESSION Intraoperative localization Dr. Wang reviewed these findings with Dr. Ahumada on 05/31/2019 at 8:18AM. I have personally reviewed the images and the above interpretation andagree with the findings. us Caleb Ahumada MD IMG DIAGNOSTIC IMAGING OR DERABLES Final Result * TYPE AND SCREEN (05/31/2019 6:35 EST) ABO A 05/31/2019 8:35 EST [facility] Rh Factor Positive 05/31/2019 8:35 EST [facility] Antibody Screen Negative 05/31/2019 8:35 EST [facility] Specimen Expires: 06/03/2019 @ 23:59 05/31/2019 8:35 EST [facility] Blood VENOUS BLOOD / Unknown Venipuncture / Unknown 05/31/2019 6:35 EST 05/31/2019 6:35 EST us Chencho Tarango MD BLOOD BANK TESTS Edited Re sult - Final Performing Organization Address City/State/[facility] Co de Phone Number [facility] [address] [place] [address] documented in this encounter Visit Diagnoses Diagnosis [...] may reflect changes made after this encounter. vit C/vit E ac/lut/copper/zinc (PRESERVISION LUTEIN ORAL) [...] Routine, Release 1043 (Not Given - Provider: Rene Mckeon RN - Reason: Order parameters not met)224 (Not Given - Provider: Yelena Owen RN - Reason: Patient/family refused) 105 (Not Given - Provider: Rene Mckeon RN - Reason: Patient/family refused)2012 (Not Given - Provider: Vito Trejo RN - Reason: Patient/family refused) 0814 (Not Given - Provider: Quinn Adrian RN - Reason: Patient/family refused) enoxaparin (LOVENOX) injection 40 mg 40 mg, subcutaneous, DAILY, First dose on 06/03/19 at 0900, Until Discontinued, Routine 1041 (Given - Provider: Rene Mckeon RN) 1025 (Given - Provider: Rene Mckeon RN) 0816 (Given - Provider: Quinn Adrian, LAUREL) magnesium citrate solution 296 mL (COMPLETED) 296 mL, oral, Once (Without Time Specified), 1 dose, Starting on 06/05/19 at 1630, Until 06/05/19 at 1748, Routine 1748 (Given - Provider: Rene Mckeon RN) magnesium hydroxide (MILK OF MAGNESIA) 400 mg/5 mL suspension 30 mL 30 mL, oral, AT BEDTIME, First dose on 06/02/19 at 2100, Until Discontinued, Routine 2244 (Not Given - Provider: Yelena Owen RN - Reason: Patient/family refused) 2023 (Hold - Provider: Vito Trejo RN - Reason: Patient/family refused) metoprolol XL (TOPROL-XL) tablet 25 mg 25 mg, oral, AT BEDTIME, First dose on Wed06/01/19 at 2100, Until Discontinued, Routine 2019 (Given - Provider: Yelena Owen RN) 2012 (Given - Provider: Vito Trejo, RN) Multivitamins with Minerals tablet 1 Tab 1 Tablet, oral, DAILY, First dose on Wed06/01/19 at 0900, Until Discontinued, Routine 1041 (Given - Provider: Rene Mckeon RN) 1051 (Not Given - Provider: Rene Mckeon RN - Reason: Patient/family refused) 0816 (Given - Provider: Quinn Adrian, RN) pantoprazole (PROTONIX) tablet 40 mg 40 mg, oral, DAILY, First dose on Wed06/02/19 at 1030, Until Discontinued, Routine 1041 (Given - Provider: Rene Mckeon RN) 1025 (Given - Provider: Rene Mckeon RN) 0815 (Not Given - Provider: Quinn Adrian RN - Reason: Patient/family refused) polyethylene glycol 3350 (MIRALAX) packet 17 g 17 g, oral, DAILY, First dose on Wed06/02/19 at 0900, Until Discontinued, Routine 1043 (Not Given - Provider: Rene Mckeon RN - Reason: Order parameters not met) 1051 (Not Given - Provider: Rene Mckeon RN - Reason: Patient/family refused) 0815 (Not Given - Provider: Quinn Adrian RN - Reason: Patient/family refused) senna (SENOKOT) tablet 3 Tab 3 Tablet, oral, 2 TIMES DAILY, First dose (after last modification) on Wed06/02/19 at 0900, Until Discontinued, Routine, Release 1043 (Not Given - Provider: Rene Mckeon RN - Reason: Order parameters not met)2244 (Not Given - Provider: Yelena Owen RN - Reason: Patient/family refused) 1051 (Not Given - Provider: Rene Mckeon RN - Reason: Patient/family refused)2012 (Not [...] Laurita Garcia RN)1040 (See Alternative - Provider: Rene Mckeon RN)1625 (See Alternative - Provider: Rene Mckeon RN)2018 (See Alternative - Provider: Yelena Owen RN) 0123 (See Alternative - Provider: Yelena Owen RN)1025 (See Alternative - Provider: Reen Mckeon RN)1413 (See Alternative - Provider: Rene Mckeon RN) 0008 (See Alternative - Provider: Vito Trejo, LAUREL) acetaminophen (TYLENOL) suppository 650 mg(Linked Group 1) 650 mg, rectal, EVERY 4 HOURS PRN, Starting on Wed05/31/19 at 1520, Until Wed06/06/19 at 1242, Pain, Routine, Release 0605 (See Alternative - Provider: Laurita Garcia RN)1040 (See Alternative - Provider: Rene Mckeon RN)1625 (See Alternative - Provider: Rene Mckeon RN)2018 (See Alternative - Provider: Yelena Owen RN) 0123 (See Alternative - Provider: Yelena Owen RN)1025 (See Alternative - Provider: Rene Mckeon RN)1413 (See Alternative - Provider: Rene Mckeon RN) 0008 (See Alternative - Provider: Vito Trejo, LAUREL) acetaminophen (TYLENOL) tablet 650 mg(Linked Group 1) 650 mg, oral, EVERY 4 HOURS PRN, Starting on Wed05/31/19 at 1520, Until Wed06/06/19 at 1242, Pain, Routine, Release 0605 (Given - Provider: Laurita Garcia RN)1040 (Given - Provider: Rene Mckeon RN)1625 (Given - Provider: Rene Mckeon RN)2019 (Given - Provider: Yelena Owen RN) 0123 (Given - Provider: Yelena Owen RN)1025 (Given - Provider: Rene Mckeon RN)1413 (Given - Provider: Rene Mckeon RN) 0008 (Given - Provider: Vito Trejo RN) benzocaine-menthol (CEPACOL) 15-3.6 mg per lozenge 1 Lozenge 1 Lozenge, buccal, PRN, Starting on Wed05/31/19 at 2312, Until Wed06/06/19 at 1242, Pain, Routine bisacodyl (DULCOLAX) suppository 10 mg 10 mg, rectal, EVERY 48 HOURS PRN, Starting on Wed06/02/19 at 0000, Until Wed06/06/19 at 1242, Constipation, Routine, Release 1833 (Given - Provider: Rene Mckeon RN) calcium carbonate (TUMS) 200 mg [...] Provider: Laurita Garcia RN)1041 (Given - Provider: Rene Mckeon RN) metoCLOPramide (REGLAN) injection 10 mg [...] sodium chloride 0.9 % irrigation 1 05/31/20 Thrombin (Bovine) 5,000 unit topical solution 1 [...] 05/2806/04/2019 documented in this encounter Care Teams Private Mortgage Banker Safe Relationship Specialty Start Date End Date Garcia Gonzales MD [address] [id number] [address] PCP - General 09/03/09 documented as of this encounter
--- OUTSIDE RECORDS SUMMARY | 2024-07-19 13:47 | XMS_ITS | Encounter Summary ---
Author Organization [facility] Address [address] [place] [address] Care Team Providers Care Senior Advocate Name Role Phone Garcia Gonzales MD Primary Care Provider [phone] Reason for Referral * PT/OT/ST (Routine) - Authorization Not Required Specialty Diagnoses / Procedures Referred By Contac t Referred To Contact Diagnoses Lumbar stenosis with neurogenic claudication Caleb Ahumada MD Phone: tel: fax: Referral ID Status Reason Start Date Expiration Date Visits Requested Visits Authorized [id number] Authorization Not Required Specialty Services Required 06/27/20 19 1 1 Question Answer Reason for Request: strengthening after lumbar fusion Reason for Visit * Reason Comments Back Pain LBP Encounter Details Date Type Department Care Team (Late st Contact Info) Description 06/27/2019 15:00 EST Post-op Visit [facility] Neurosurgery - [address] [address] Caleb Ahumada MD [address] [facility], [address] [place] [address] Lumbar stenosis with neurogenic claudication (Primary [...] were answered. Fifteen minutes of this 25-minute ncbo-[id number]-[id number] visit were spent in patient counseling. documented [...] claudication documented in this encounter Care Teams Senior Advocate Relationship Specialty Start Date End Date Garcia Gonzales MD [address] [place] [address] PCP - General 09/03/09 documented as of this encounter
--- OUTSIDE RECORDS SUMMARY | 2024-07-19 13:47 | XMS_ITS | Encounter Summary ---
Author Organization [facility] Address [address] [place] [address] Care Team Providers Care Railroad Police Officer Name Role Phone Garcia Gonzales MD Primary Care Provider [phone] Reason for Visit * Reason Onset Date Comments Physical Therapy 06/12/2019 Encounter Details Date Type Department Care Team (Late st Contact Info) Description 06/12/2019 Telephone [facility] [address] [place] [address] Brigette Moser RN Physical Therapy Social History Tobacco Use Types Packs/Day Years Used Date Smoking Tobacco: Former Cigarettes 3 15 1 223 - 1052 Smokeless Tobacco: Never Comments:quit 41 years ago [...] Assessment Author No 01/19/2019 1:00 Brooklyn Ferguson , RN * Do you have difficulty dressing or bathing? (5 years old or older) Answer Date of Assessment Author No 01/19/2019 1:00 Brooklyn Ferguson , LAUREL * Because of a physical, mental, or emotional condition, does this person have difficulty doing errands alone such as visiting a doctor's office or shopping? Answer Date of Assessment Author Yes 02/09/2019 15:07 Siri Ferguson RN documented as of this encounter Mental Status * Because of a physical, mental, or emotional condition, do you have serious difficulty concentrating, remembering, or making decisions? (5 years old or older) Answer Entry Date Author No 01/19/2019 1:00 Brooklyn Ferguson RN documented in this encounter Miscellaneous Notes [...] suture removal. He may be reache at [phone]. documented in this encounter Plan of Treatment Not on file documented as of this encounter Visit Diagnoses Not on filedocumented in this encounter Care Teams Railroad Police Officer Relationship Specialty Start Date End Date Garcia Gonzales MD [address] [place] [address] PCP - General 09/03/09 documented as of this encounter
--- OUTSIDE RECORDS SUMMARY | 2024-07-19 13:47 | XMS_ITS | Encounter Summary ---
Author Organization [facility] Address [address] [place] [address] Care Team Providers Care Tube Room Supervisor Name Role Phone Garcia Gonzales MD Primary Care Provider [phone] Reason for Visit * Reason Onset Date Comments Discuss Surgery 04/18/2019 Encounter Details Date Type Department Care Team (Late st Contact Info) Description 04/18/2019 Telephone [facility] - [address] [address] Caleb Ahumada MD [address] [place] [address], [address] [place] [address] Discuss Surgery Social History Tobacco [...] 1:00 EDT Brooklyn Murray , RN * Because of a physical, [...] Murray , RN documented in this encounter Miscellaneous Notes [...] Telephone Encounter - Awa Hurley - 04/18/2019 1455 EDT Patient left a message on our [...] on filedocumented in this encounter Care Teams Tube Room Supervisor Relationship Specialty Start Date End Date Garcia Gonzales MD [address] [place] [address] PCP - General 09/03/09 documented as of this encounter
--- OUTSIDE RECORDS SUMMARY | 2024-07-19 13:47 | XMS_ITS | Encounter Summary ---
Author Organization [facility] Address [address] [place] [address] Care Team Providers Care Renewals Representative Name Role Phone Garcia Gonzales MD Primary Care Provider [phone] Reason for Referral * Radiology Services (Routine) - Closed Specialty Diagnoses / Procedures Referred By Jacobac t Referred To Contact Diagnoses Lumbar stenosis with neurogenic claudication Procedures XR ENTIRE SPINE 2-3 VIEWS Caleb Ahumada MD Phone: tel: fax: Referral ID Status Reason Start Date Expiration Date Visits Re quested Visits Authorized [id number] Closed 06/27/2019 1 1 Reason for Visit * Radiology Services (Routine) - Closed Specialty Diagnoses / Procedures Referred By Contac t Referred To Contact Diagnoses Lumbar stenosis with neurogenic claudication Procedures XR ENTIRE SPINE 2-3 VIEWS Caleb Ahumada MD Phone: tel: fax: Referral ID Status Reason Start Date Expiration Date Visits Re quested Visits Authorized [id number] Closed 06/27/2019 1 1 Encounter Details Date Type Department Care Team (Latest Contact Info) Description 06/27/2019 13:32 EST - 06/28/2019 23:59 EST Hospital Encounter [address] [place], [place] [id number] Lumbar stenosis with neurogenic claudication Discharge Disposition: [...] grade 1 L4 on 5 anterolisthesis. Caleb Rios Ahumada MD IMG DIAGNOSTIC IMAGING OR DERABLES Final Result documented in this encounter Visit Diagnoses Diagnosis Lumbar stenosis with neurogenic claudication Spinal stenosis, lumbar region, with neurogenic claudication documented in this encounter Care Teams Renewals Representative Relationship Specialty Start Date End Date Garcia Gonzales MD [address] [place] [address] PCP - General 09/03/09 documented as of this encounter
--- OUTSIDE RECORDS SUMMARY | 2024-07-19 13:47 | XMS_ITS | Encounter Summary ---
Author Organization [facility] Address [address] [place] [address] Care Team Providers Care Pipe Cleaner Name Role Phone Garcia Gonzales MD Primary Care Provider [phone] Encounter Details Date Type Department Care Team (Late st Contact Info) Description 05/24/2019 Prep for Procedure [facility] Neurosurgery - [address] [id number] Queta Hall PA-C [address] [place] [address], [address] [place] [address] Social History Tobacco Use Types Packs/Day Years Used Date Smoking Tobacco: Former Cigarettes 3 15 1 383 - 1977 Smokeless Tobacco: Never Comments:quit 41 [...] Ferguson , RN * Do you have serious difficulty [...] on filedocumented in this encounter Care Teams Pipe Cleaner Relationship Specialty Start Date End Date Garcia Gonzales MD [address] [place] [address] PCP - General 09/03/09 documented as of this encounter
--- OUTSIDE RECORDS SUMMARY | 2024-07-19 13:47 | XMS_ITS | Encounter Summary ---
Author Organization [facility] Address [address] [place] [address] Care Team Providers Care Bus Analyst Name Role Phone Garcia Gonzales MD Primary Care Provider [phone] Encounter Details Date Type Department Care Team (Late st Contact Info) Description 02/09/2019 14:20 EDT - 02/09/2019 23:59 EDT Hospital Encounter [address] [address] Caleb Ahumada MD [address] [place] [address], [address] [place] [id number] Discharge Disposition: Auto Discharge Social History Tobacco [...] Brooklyn Murray RN * Do you have serious difficulty [...] Murray RN documented in this encounter Discharge Diagnoses Diagnosis M47.12 Other [...] husk (METAMUCIL ORAL) Take by mouth daily. 05/08/2019 vit A/vit C/vit E/zinc/copper (PRESERVISION AREDS ORAL) Take by mouth daily. 05/09/2019 documented as of this encounter Discharge Disposition Disposition Code Departure Means Destination Auto Discharge Home documented in this encounter Plan of Treatment Not on file documented as of this encounter Visit Diagnoses Not on filedocumented in this encounter Care Teams Bus Analyst Relationship Specialty Start Date End Date Garcia Gonzales MD [address] [place] [address] PCP - General 09/03/09 documented as of this encounter
--- OUTSIDE RECORDS SUMMARY | 2024-07-19 13:47 | XMS_ITS | Encounter Summary ---
Author Organization [facility] Address [address] [place] [address] Care Team Providers Care Compression Molding Machine Operator Name Role Phone Garcia Gonzales MD Primary Care Provider [phone] Reason for Visit * Reason Onset Date Comments Discuss Surgery 05/03/2019 Encounter Details Date Type Department Care Team (Late st Contact Info) Description 05/03/2019 Telephone [facility] Neurosurgery - [address] [address] Renea Petersen RN Discuss Surgery Social History Tobacco Use [...] on filedocumented in this encounter Care Teams Compression Molding Machine Operator Relationship Specialty Start Date End Date Garcia Gonzales MD [address] [place] [address] PCP - General 09/03/09 documented as of this encounter
--- OUTSIDE RECORDS SUMMARY | 2024-07-19 13:47 | XMS_ITS | Encounter Summary ---
Author Organization [facility] Address [address] [place] [address] Care Team Providers Care Director Global Intelligence Name Role Phone Garcia Gonzales MD Primary Care Provider [phone] Reason for Visit * Reason Onset Date Comments Discuss Surgery 2019 Encounter Details Date Type Department Care Team (Late st Contact Info) Description 2019 Telephone [facility] [address] [place] [address] Brigette Moser RN Discuss Surgery Social History [...] 01/19/2019 1:00 Brooklyn Ferguson , RN * Because of a physical, [...] filedocumented in this encounter Care Teams Director Global Intelligence Relationship Specialty Start Date End Date Garcia Gonzales MD [address] [place] [address] PCP - General 09/03/09 documented as of this encounter
--- OUTSIDE RECORDS SUMMARY | 2024-07-19 13:47 | XMS_ITS | Encounter Summary ---
Author Organization [facility] Address [address] [place] [address] Care Team Providers Care Sheet Heater Helper Name Role Phone Garcia Gonzales MD Primary Care Provider [phone] Reason for Visit * Auth/Cert Specialty Diagnoses / Procedures [facility] Referred To Contact Diagnoses Spinal stenosis, lumbar region with neurogenic claudication Procedures NE ARTHRODESIS POSTERIOR/POSTEROLATERAL LUMBAR NE SPINE FUSN,POST TECH,EA ADDNL SGMT NE LAMINECTOMY,>2 SGMT,LUMBAR NE POSTERIOR SEGMENTAL INSTRUMENTATION 3-6 VRT SEG NE ALLOGRAFT FOR SPINE SURGERY ONLY STRUCTURAL lumbar laminectomy L1-2 through L4-5, L3-5 instrumented fusion with the use or possible use of allograft . . . . Referral ID Status Reason Start Date Expiration Date Visits Re quested Visits Authorized [id number] 1 1 Encounter Details Date Type Department Care Team (Late st Contact Info) Description 05/31/2019 7:37 EST Anesthesia Event [facility] OR [address] [place] [address] Jsoe Armando Cano MD [address] [place] [address] Clementina David CRNA [address] [address] Anesthesia Record Procedure Summary Procedure [...] vertical incision 01/18/19 0901 by Bal Bose, navigating officer 05/31/19; 0837; Inci jose; Lower, Midline; Back; [...] Brooklyn Murray RN documented in this encounter OR Notes * Anesthesia Postprocedure [...] procedure: OR Anesthesiologist: Jose Armando Cano MD Resident/INSPECTING MACHINE ADJUSTER: Clementina David APRN Performed: resident/INSPECTING MACHINE ADJUSTER/AA Indications and Patient Condition Indications for airway [...] of this type exist for this encounter. Cosigned by Jose Armando Cano MD at 06/01/2019 16:29 EST documented in this encounter Plan of Treatment Not on file documented as of this encounter Procedures Procedure Name Priority Date/Time Associated Diagnosis Comments ANESTHESIA INTUBATION Routine 05/31/2019 8:09 EST documented in this encounter Results * NE AN ELECTIVE ENDOTRACHEAL AIRWAY (05/31/2019 8:09 EST) Narrative Clementina David APRN - 05/31/2019 8:09 EST Clementina David APRN ? 05/31/2019 ??8:10 Airway Date/Time: 05/31/2019 7:48 Urgency: elective Airway not difficult General Information and Staff Patient location during procedure: OR Anesthesiologist: Jose Armando Cano MD Resident/INSPECTING MACHINE ADJUSTER: Clementina David APRN Performed: resident/INSPECTING MACHINE ADJUSTER/AA Indications and Patient Condition Indications for airway management: anesthesia Sedation level: GA Preoxygenated: yes Patient position: sniffing Ventilation assessment: 2 - Oral airway inserted Final Airway Details Final airway type: endotracheal airway Successful airway: ETT Cuffed: yes Successful intubation technique: video laryngoscopy [place] Facilitating devices/methods: intubating stylet Endotracheal tube insertion site: oral Blade size: #4 ETT size (mm): 7.5 Cormack-Lehane Classification: grade I - full view of glottis Placement verified by: chest auscultation and capnometry Cuff volume (mL): 6 Number of attempts at approach: 1 us Jose Armando Cano MD ANESTHESIA ORDERABLES Final Re sult documented in this encounter Visit Diagnoses Not [...] mg documented in this encounter Care Teams Sheet Heater Helper Relationship Specialty Start Date End Date Garcia Gonzales MD [address] [place] [address] PCP - General 09/03/09 documented as of this encounter
--- OUTSIDE RECORDS SUMMARY | 2024-07-19 13:47 | XMS_ITS | Encounter Summary ---
Author Organization [facility] Address [address] [place] [address] Care Team Providers Care Investment Accountant Name Role Phone Garcia Gonzales MD Primary Care Provider [phone] Reason for Referral * Radiology Services (Routine) - Closed Specialty Diagnoses / Procedures Referred By Contac t Referred To Contact Diagnoses Lumbar stenosis with neurogenic claudication Procedures XR ENTIRE SPINE 2-3 VIEWS Caleb Ahumada MD Phone: tel: fax: Referral ID Status Reason Start Date Expiration Date Visits Re quested Visits Authorized [id number] Closed 06/27/2019 1 1 Encounter Details Date Type Department Care Team (Late st Contact Info) Description 06/27/2019 Orders Only [facility] Neurosurgery - [address] [address] Caleb Ahumada MD [address] [place] [address], [address] [place] [phone] Lumbar stenosis with neurogenic claudication (Primary Dx) [...] Unchanged grade 1 L4 on 5 anterolisthesis. Calebrt Rios Ahumada MD IMG DIAGNOSTIC IMAGING OR DERABLES Final Result documented in this encounter Visit Diagnoses Diagnosis Lumbar stenosis with neurogenic claudication- Primary Spinal stenosis, lumbar region, with neurogenic claudication Lumbar stenosis with neurogenic claudication Spinal stenosis, lumbar region, with neurogenic claudication documented in this encounter Care Teams Investment Accountant Relationship Specialty Start Date End Date Garcia Gonzales MD [address] [place], [place] [address] PCP - General 09/03/09 documented as of this encounter
--- OUTSIDE RECORDS SUMMARY | 2024-07-19 13:47 | XMS_ITS | Encounter Summary ---
Author Organization [facility] Address [address] [place] [address] Care Team Providers Care Marksmanship Instructor Name Role Phone Garcia Gonzales MD Primary Care Provider [phone] Reason for Visit * Reason Onset Date Comments Discuss Surgery 05/30/2019 Encounter Details Date Type Department Care Team (Late st Contact Info) Description 05/30/2019 Telephone [facility] - [address] [address] Caleb Ahumada MD [address] [place] [address], [address] [place] [address] Discuss Surgery Social History Tobacco Use Types Packs/Day Years Used Date Smoking Tobacco: Former Cigarettes 3 15 1 033 - 1978 Smokeless Tobacco: Never Comments:quit 39 [...] 01/19/2019 1:00 SAHRAT Brooklyn Murray RN * Do you have [...] on filedocumented in this encounter Care Teams Marksmanship Instructor Relationship Specialty Start Date End Date Garcia Gonzales MD [address] [place] [address] PCP - General 09/03/09 documented as of this encounter
--- OUTSIDE RECORDS SUMMARY | 2024-07-19 13:47 | XMS_ITS | Encounter Summary ---
Author Organization [facility] Address [address] [place] [address] Care Team Providers Care Coupling Machine Operator Name Role Phone Garcia Gonzales MD Primary Care Provider [phone] Reason for Visit * Reason Onset Date Comments Appointment Related 02/17/2019 Encounter Details Date Type Department Care Team (Late st Contact Info) Description 02/17/2019 Telephone [facility] [address] [place] [address] Brigette Moser RN Appointment Related Social History [...] No 01/19/2019 1:00 EDT Brooklyn Murray , LAUREL documented in this encounter Miscellaneous Notes * Telephone Encounter - Awa Hurley - 02/17/2019 1123 EDT Confirmed [facility] (Mehdi Matthews MD) was the referring office and faxednotes as requested. * Telephone Encounter - Brigette Moser RN - 02/17/2019 1044 EDT Call from outside provider requesting DC summary op notes. documented in this encounter Plan of Treatment Not on file documented as of this encounter Visit Diagnoses Not on filedocumented in this encounter Care Teams Coupling Machine Operator Relationship Specialty Start Date End Date Garcia Gonzales MD [address] [place] [address] PCP - General 09/03/09 documented as of this encounter
--- OUTSIDE RECORDS SUMMARY | 2024-07-19 13:47 | XMS_ITS | Encounter Summary ---
Author Organization [facility] Address [address] [place] [address] Care Team Providers Care Contract Law Specialist Name Role Phone Garcia Gonzales MD Primary Care Provider [phone] Reason for Visit * Reason Onset Date Comments Procedure 05/09/2019 Follow-up 05/09/2019 Encounter Details Date Type Department Care Team (Late st Contact Info) Description 05/09/2019 Telephone [facility] - [address] [address] Caleb Ahumada MD [address] [place] [address], [address] [place] [address] Procedure; Follow-up Social History Tobacco Use Types Packs/Day Years Used Date Smoking Tobacco: Former Cigarettes 3 15 1 053 - 1978 Smokeless Tobacco: Never Comments:quit 39 [...] of Assessment Author No 01/19/2019 1:00 Brooklyn Ferugson RN * Are you blind or do you have serious difficulty seeing, even when wearing glasses? Answer Date of Assessment Author No 01/19/2019 1:00 Brooklyn Ferguson RN * Do you have serious difficulty walking or climbing stairs? (5 years old or older) Answer Date of Assessment Author No 01/19/2019 1:00 EDT Brooklyn Murray , RN * Do you have difficulty [...] the surgery time. * Telephone Encounter - Cnonie Merritt - 05/09/2019 1407 EST Patient called again for tomorrow's surgery time. Any update? Please call. * Telephone Encounter - Tanna Watt - 05/09/2019 1402 EST Pt requesting a call back at [phone] today with procedure time for tomorrow documented in this encounter Plan of Treatment Not on file documented as of this encounter Visit Diagnoses Not on filedocumented in this encounter Care Teams Contract Law Specialist Relationship Specialty Start Date End Date Garcia Gonzales MD [address] [place] [address] PCP - General 09/03/09 documented as of this encounter
--- OUTSIDE RECORDS SUMMARY | 2024-07-19 13:47 | XMS_ITS | Encounter Summary ---
Author Organization [facility] Address [address] [place] [address] Care Team Providers Care Data Analytics Specialist Name Role Phone Garcia Gonzales MD Primary Care Provider [phone] Reason for Referral * PT/OT/ST (Routine) - Closed Specialty Diagnoses / Procedures Referred By Contac t Referred To Contact Diagnoses Cervical arthritis with myelopathy Caleb Ahumada MD Phone: tel: fax: Referral ID Status Reason Start Date Expiration Date V isits Requested Visits Authorized [id number] Closed Specialty Services Required 02/09/2019 1 1 Question Answer Reason for Request: strengthening after cervical fusion Reason for Visit * Reason Comments Post-OP Follow Up C7-T1 fusion * Consult (Routine) - Closed Specialty Diagnoses / Procedures Referred By Contac t Referred To Contact Neurosurgery Diagnoses Cervical spondylosis with radiculopathy Murray Gomes MD [address] [place] [address] Phone: tel: fax:[phone] Caleb Ahumada MD Phone: tel: fax: Referral ID Status Reason Start Date Expiration Date V isits Requested Visits Authorized [id number] Closed Specialty Services Required 01/20/2019 1 1 Encounter Details Date Type Department Care Team (Late st Contact Info) Description 02/09/2019 15:15 EDT Post-op Visit [facility] - [address] [address] Caleb Ahumada MD [address] [facility], [address] [place] [address] Cervical arthritis with myelopathy (Primary [...] EDT documented in this encounter Functional Status * [...] 01/19/2019 1:00 SAHRAT Brooklyn Murray RN * Because of a [...] documented in this encounter Discharge Diagnoses Diagnosis M48.03 Spinal [...] 1/1/0/2. Full power both deltoids, biceps, triceps, department helper and BLE No hyperreflexia Denies abnormalities of [...] may reflect changes made after this encounter. apixaban (ELIQUIS) 5 mg tablet Take 5 mg by mouth 2 times daily. 06/06/2019 added in this encounter Care Teams Data Analytics Specialist Relationship Specialty Start Date End Date Garcia Gonzales MD [address] [place] [address] PCP - General 09/03/09 documented as of this encounter
--- OUTSIDE RECORDS SUMMARY | 2024-07-19 13:47 | XMS_ITS | Encounter Summary ---
Author Organization [facility] Address [address] [place] [address] Care Team Providers [employer] Delivery Consultant Name Role Phone Garcia Gonzales MD Primary Care Provider [phone] Reason for Visit * Reason Comments Neck Pain C7-T1 Encounter Details Date Type Department Care Team (Late st Contact Info) Description 04/11/2019 11:00 EDT Post-op Visit [facility] Neurosurgery - [address] [address] Caleb Ahumada MD [address] [facility], [address] [place] [id number] Lumbar stenosis with neurogenic claudication (Primary Dx) [...] Date of Assessment Author No 01/19/2019 1:00 EDBrooklyn Sotelo RN * Because of a physical, mental, or emotional condition, does this person have difficulty doing errands alone such as visiting a doctor's office or shopping? Answer Date of Assessment Author Yes 02/09/2019 15:07 SAHRAT Siri Murray RN documented as of this encounter Mental Status * Because of a physical, mental, or emotional condition, do you have serious difficulty concentrating, remembering, or making decisions? (5 years old or older) Answer Entry Date Author No 01/19/2019 1:00 Brooklyn Ferguson RN documented in this encounter Discharge Diagnoses Diagnosis M48.062 Spinal [...] a grade 1 degenerative anterolisthesis at L4-L5. Lioes have foraminal stenosis at L3-L4 and L4-L5. His Oswestry disability index is 21/50, and his low back pain scores are 1/4/1/5. On physical examination, he has 5/5 power in the deltoid, biceps, triceps, electro winning operator, iliopsoas, quadriceps, dorsiflexors, EHL and plantar flexors. [...] indicated he would like to avoid a [employer]ER and instead use nursing dosing. Twenty-five minutes of this 45-minute [id number] visit was spent in patient counseling. documented in this encounter Plan of Treatment Not on file documented as of this encounter Visit Diagnoses Diagnosis Lumbar stenosis with neurogenic claudication- Primary Spinal stenosis, lumbar region, with neurogenic claudication documented in this encounter [employer] Delivery Consultant Relationship Specialty Start Date End Date Garcia Gonzales MD [address] [place] [address] PCP - General 09/03/09 documented as of this encounter
--- OUTSIDE RECORDS SUMMARY | 2024-07-19 13:47 | XMS_ITS | Encounter Summary ---
Author Organization [facility] Address [address] [place] [address] Care Team Providers Care Restaurant Assistant Manager Name Role Phone Garcia Gonzales MD Primary Care Provider [phone] Reason for Visit * Auth/Cert Specialty Diagnoses / Procedures [facility] Referred To Contact Diagnoses Spinal stenosis, lumbar region with neurogenic claudication Procedures MT ARTHRODESIS POSTERIOR/POSTEROLATERAL LUMBAR MT SPINE FUSN,POST TECH,EA ADDNL SGMT MT LAMINECTOMY,>2 SGMT,LUMBAR MT POSTERIOR SEGMENTAL INSTRUMENTATION 3-6 VRT SEG MT ALLOGRAFT FOR SPINE SURGERY ONLY STRUCTURAL lumbar laminectomy L1-2 through L4-5, L3-5 instrumented fusion with the use or possible use of allograft . . . . Referral ID Status Reason Start Date Expiration Date Visits Re quested Visits Authorized [id number] 1 1 Encounter Details Date Type Department Care Team (Late st Contact Info) Description 05/31/2019 7:25 EST - 05/31/2019 12:25 EST Surgery [facility] OR [address] [place] [address] [id number] Caleb Ahumada MD [address] [facility], Level [address] [place] [id number] lumbar laminectomy L1-2 through L4-5, L3-5 instrumented fusion with the use or possible use of allograft [42131 (CPT??)] Surgery Details Date/Time Status Location OR Service Patient Class Case Class Case Type Trauma Case? 05/31/2019 0725 Posted [facility] OR [facility] Neurosurgery Extended Stay H - Elective Panel 1 Procedure [...] - documented in this encounter Functional Status * [...] Ferguson RN documented in this encounter Discharge Summaries [...] Post Op Visit with Caleb Ahumada MD [facility] Neurosurgery - [facility] (--) [address] [facility] [address] ALICIA MARROQUIN MD 06/03/2019 8:02 Cosigned by [...] Gomez, PT - 06/06/2019 1042 EST [facility] Therapy Acute Therapy [facility] Physical Therapy Discontinue/Discharge Note Date of Service: 06/06/2019 Mobility Precautions Activity: Activity as tolerated Spinal Precautions: Spine A Surgery/No Brace SUBJECTIVE: Other Subjective Statements: N/A OBJECTIVE: PatientProfile: Patient is a 74 y.o. male admitted on 05/31/2019 secondary to Spinal stenosis, lumbar region with neurogenic claudication [M48.062] Spinal stenosis of lumbar region with neurogenic claudication [M48.062] The patient lives at [address] [place] [address] Interventions Completed Today: Interventions Included: No interventions [...] at subacuterehab Short-Term Goals: na Long-Term Goals: Senior Living Goal Time Frame: 2 days to 2 [...] Services Comments: in Subacute rehab facility Pager: [phone] ORA GOMEZ, PT 06/06/2019 12:25 * Dayami Frazier - 06/06/2019 1040 EST I met with the patient to review medicare IM and wish him well. He was sitting up brushing teeth and getting cleaned up. He feels ready to d/c to rehab today and is very pleased to get into the rehabof his choice. Pt discharging to [facility] via w/c van at [address] Kaila Toussaint will follow. report will be phoned to him @ [phone]. RN report will be phoned the facility rehab unit. Dayami Frazier RN/[facility] #[id number]. * Krystyna Terrazas, OT - 06/06/2019 0819 EST [facility] Therapy Acute Therapies [facility] - Occupational Therapy Discontinue/Discharge Note [...] Lower Body Dressing: Pt able to doff/don project development manager socks using dressing stick and sock aid [...] from hospital. Short Term Goals: N/A ?? Rn Interventional Goals: Rn Interventional Goal Time Frame Senior Living Goal Time Frame: 1-2 weeks Senior Living Goal 1 Goal: Will perform functional transfers to/from varying surfaces modified I to perform BADL or other functional activities. Senior Living Goal 2 Goal: Will perform LB dressing/self-care modified I. Senior Living Goal 3 Goal: Will perform UB dressing/self-care modified I. Rn Interventional Goal 4 Goal: Will perform toileting tasks min contact A. Senior Living Goal 5 Goal: Will recall and follow post surgery precautions without verbal reminders during OT sessions. Senior Living Goal 6 Goal: Will verbalize understanding of any OT recommendations. PLAN: Discontinue occupational therapy at [facility] acute care. Recommended Discharge Destination: Sub-acute rehabilitation Recommended Discharge Services: Occupational therapy at rehabilitation facility Recommended Discharge Equipment: Shower chair (if pt cannot find one he has), Skilled Nursing Facility Counselor (if pt cannot find one he has), Toilet aid (Toilet tongs provided by OT), Grab bars next to toilet Further equipment recommendations to be made by next care provider Pager: [phone] GERRI LAINEZ, 06/06/2019, 8:20 Krystyna Terrazas OTR/L, Pager: [phone] * Murray Gomes MD - 06/06/2019 8167 EST Neurosurgery Daily Progress Note Problems/ Low [...] Extraocular movements intact Face symmetric No drift Industry Operations Investigator 5/5 bl Elbow extension and flexion 5/5 [...] Gomes MD Neurosurgery resident 06/06/2019 7:54 Page [phone] with questions * Blayne Tirado - 06/05/2019 7313 EST Spiritual Care Note Re: Nakul Sam : 1945, AGE: 74 y.o. Room: [facility]/[id number] Nakul Sam who is listed as None [...] . Pt is in good spirit . Lead Former provided listening presence.support Plan of Action: No Follow up necessary - Needs met Continued Family Support Continued Support from Lead Former following patient Make a Referral to: Continued [...] Support Other Chaplain May ARROYO 131 Phone [phone] Spiritual Care is available 24 hours a day. Chaplains are available 24 hours a day. For routine consults please call and leave a message with the Spiritual Care Office ([phone]) and patients will be seen within 24 hours. For all emergent consults page the Oriental Orthodox or Interfaith on-call Lead Former through [facility] ([phone]). * Dayami Frazier - 06/05/2019 1523 EST Bed offer received from [facility] in [place], pt.'s first choice for [facility]. Facility notes that patient's last charted BM was 06/03. They ask that pt be medicated if necessaryto produce bm prior to his discharge tomorrow. Dr. Kaila Toussaint will follow. report should be phoned to him at [phone]. RN report to be phoned to the facility @ [phone]. NS team informed, COLST and PASRR in patient's chart and will be signed by team. Pt to go via W/C van. He will be picked up in the main lobby at 11am Wednesday 06/06. Dayami Frazier RN/[facility] #[id number]. * Dayami Frazier - 06/05/2019 1355 EST I met with the patient and his was at his bedside. Pt states that he wants the one at the [facility]. Neither could remember the name of the [facility]NA. Pt agreeable to be listed at all three [facility] in [facility] And will decide based on bed offers. I have listed. I will follow up with patient when bed offers are received. Plan for d/c to [facility] as soon as tomorrow. Dayami Frazier RN/[facility] #[id number]. * Ora Gomez, PT - 06/05/2019 1240 EST [facility] Therapy Acute Therapies [facility] Physical Therapy Encounter Note Date [...] other consults recommended at this time Pager: [phone] ORA GOMEZ, PT 06/05/2019 12:40 * Dayami Frazier - 06/05/2019 1200 EST Per PT today, patient in need of [facility]. He and are agreeable. I will see and list. Dayami Frazier RN/[facility] #[id number]. * Krystyna Terrazas OT - 06/05/2019 1112 EST [facility] Therapy Acute Therapies [facility] - Occupational Therapy Encounter Note [...] (if pt cannot find one he has), Skilled Nursing Facility Counselor (if pt cannot find one he has), Toilet aid (Toilet tongs provided by OT), Grab bars next to toilet Pager: [phone] GERRI LAINEZ, 06/05/2019, 11:12 Krystyna Terrazas OTR/L, Pager: [phone] * Martín Gayle MD - 06/05/2019 2988 EST Neurosurgery Daily Progress Note Problems/ Low [...] Extraocular movements intact Face symmetric No drift Industry Operations Investigator 5/5 bl Elbow extension and flexion 5/5 [...] Gayle MD Neurosurgery resident 06/05/2019 5:30 Page [phone] with questions * Ora Gomez, PT - 06/04/2019 1320 EST [facility] Therapy Acute Therapies [facility] Physical Therapy Encounter Note Date [...] Gomez, PT - 06/04/2019 1023 EST [facility] Therapy [facility] Therapy [facility] Physical Therapy Contact Note Date [...] subacute rehab. Full note to follow Pager [phone] ORA GOMEZ PT 06/04/2019 10:23 * Luz Pierre, OT - 06/04/2019 0942 EST [facility] Therapy [facility] Therapy [facility] Occupational Therapy Initial Evaluation Note [...] neurogenic claudication [M48.062]. The patient lives at [address] [place] [phone] History of Present Illness/Injury Per Progress Note [...] and tisseal SURGEON = Rios Ahumada MD DEHAIRING MACHINE TENDER = Good Small MD ANESTHESIA [...] reported having a commode, shower chair and rotary cutter operator but was unsure where they were. ) Dressing/Grooming/Feeding Equipment: Dressing stick, Skilled Nursing Facility Counselor, Sock aid Mobility Equipment Mobility Equipment: Cane, [...] homes however he will be moving into [facility] upon initial DC. Prior Level of Function Prior Level of Function Comment: Pt reported modified indpendence with BADLs. Pt used adapative equipment (sock aid, dressing stick, etc) to dress himself. Pt uses a rolling walker to mobilize as of recently. 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 Pt reported managing [...] Past Medical History: Diagnosis Date ??? A-fib ([facility]) dx in 2014, controlled well ??? 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 MT ALLOGRAFT FOR SPINE SURGERY ONLY STRUCTURAL N/A 05/31/2019 . performed by Caleb Ahumada MD at [facility] OR ??? MT ARTHRODESIS POSTERIOR/POSTEROLATERAL LUMBAR N/A 05/31/2019 lumbar laminectomy L1-2 through L4-5, L3-5 instrumented fusion with the use or possible use of allograft performed by Caleb Ahumada MD at [facility] OR ? ? MT LAMINECTOMY,>2 SGMT,LUMBAR N/A 05/31/2019 . performed by Caleb Ahumada MD at [facility] OR ??? MT POSTERIOR SEGMENTAL INSTRUMENTATION 3-6 VRT SEG N/A 05/31/2019 . performed by Caleb Ahumada MD at [facility] OR ??? MT SPINE FUSN,POST TECH,EA ADDNL SGMT N/A 05/31/2019 . performed by Caleb Ahumada MD at [facility] OR Medications: Current Medications: Current medications reviewed [...] Lower Body Dressing: Pt able to doff/don project development manager socks using dressing stick and sock aid [...] to therapy session, During therapy session By: [id number]-blej communication Notification Comments: Re: pt status Assessments: Need for Services Appropriateness for Occupational Therapy: The patient was appropriate for an occupational therapy evaluation today Mr. Sam was found to be appropriate for skilled acute OT services after presenting to [facility] s/pL1-L5 posterior decompression, L3-L5 instrumented fusion, repair [...] Factors: Unsafe Goals: Short Term Goals: N/A Rn Interventional Goals: Rn Interventional Goal Time Frame Rn Interventional Goal Time Frame: 1-2 weeks Rn Interventional Goal 1 Goal: Will perform functional transfers to/from varying surfaces modified I to perform BADL or other functional activities. Rn Interventional Goal 2 Goal: Will perform LB dressing/self-care modified I. Rn Interventional Goal 3 Goal: Will perform UB dressing/self-care modified I. Rn Interventional Goal 4 Goal: Will perform toileting tasks min contact A. Senior Living Goal 5 Goal: Will recall and follow post surgery precautions without verbal reminders during OT sessions. Rn Interventional Goal 6 Goal: Will verbalize understanding of any OT recommendations. Plan: Necessity: Occupational therapy will be provided by the occupational therapist and/or rn occupational health when medically appropriate Active Engagement: Activity tolerance, [...] Recommended Discharge Destination Comments: Home with 's 24 support/assistance vs. subacute rehab pending progress with PT/OT Therapy Specific Services: Occupational therapy Equipment Recommended: Bathing Equipment, Dressing/Grooming/Feeding Equipment Bathing Equipment: Shower chair, Toilet aid, Grab bars next to toilet Dressing/Grooming/Feeding Equipment: Skilled Nursing Facility Counselor VADIM SANDRATRISH, 06/04/2019, 10:35 LUZ PIERRE OT06/04/201914:09 Pager: [phone] * Martín Gayle MD - 06/04/2019 6743 EST Neurosurgery Daily Progress Note Problems/ Low [...] Extraocular movements intact Face symmetric No drift Industry Operations Investigator 5/5 bl Elbow extension and flexion 5/5 [...] Gayle MD Neurosurgery resident 06/04/2019 4:34 Page 6745 with questions * Martín Gayle MD - [...] Extraocular movements intact Face symmetric No drift Industry Operations Investigator 5/5 bl Elbow extension and flexion 5/5 [...] DVT chemoppx Activity as tolerated Floor Martín Galye MD Neurosurgery resident 06/03/2019 5:01 Page 2613 with questions Cosigned by Tye Garcia MD at 06/03/2019 12:03 EST * Ora Gomez, PT - 06/02/2019 0903 EST [facility] Therapy [facility] Physical Therapy Contact Note Date of Service: 06/02/2019 PT attempted to see Mr. Sam at 0900. He is currently in the bathroom. Per discussion with Nursing, he required one assist for bed mobility and ambulation to with RW PT will follow up later today Pager [phone] ORA GOMEZ PT 06/02/2019 9:03 * Ora Gomez, PT - 06/02/2019 0835 EST [facility] Physical Therapy Initial Evaluation Note Date [...] neurogenic claudication [M48.062] The patient lives at [address] [place] [id number] History of Present Illness / Injury Current [...] plans to stay at her house in [place] during his recovery General Prior Level of [...] Past Medical History: Diagnosis Date ??? 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 MT ALLOGRAFT FOR SPINE SURGERY ONLY STRUCTURAL N/A 05/31/2019 . performed by Caleb Ahumada MD at [facility] OR ??? MT ARTHRODESIS POSTERIOR/POSTEROLATERAL LUMBAR N/A 05/31/2019 lumbar laminectomy L1-2 through L4-5, L3-5 instrumented fusion with the use or possible use of allograft performed by Caleb Ahumada MD at [facility] OR ? ? MT LAMINECTOMY,>2 SGMT,LUMBAR N/A 05/31/2019 . performed by Caleb Ahumada MD at [facility] OR ??? MT POSTERIOR SEGMENTAL INSTRUMENTATION 3-6 VRT SEG N/A 05/31/2019 . performed by Caleb Ahumada MD at [facility] OR ??? MT SPINE FUSN,POST TECH,EA ADDNL SGMT N/A 05/31/2019 . performed by Caleb Ahumada MD at [facility] OR Medications Current Medications: Current medications reviewed [...] During therapy session, After therapy session By: [id number] communication About Mobility and Gait: Mobility status, [...] services pending progress Short-Term Goals:na Long-Term Goals: Senior Living Goal Time Frame: 2 days to 2 [...] by the physical therapist and/or physical therapist financial legal assistant when medically appropriate Pt will benefit [...] Recommended Comments: pt has necessary equipment Pager: [phone] ORA GOMEZ PT 06/02/2019 13:59 * Martín [...] symmetric Facial sensation grossly intact No drift Industry Operations Investigator 5/5 bl Elbow extension and flexion 5/5 [...] Gayle MD Neurosurgery resident 06/02/2019 5:10 Page 9162 with questions * Cristy Mckay RN - 06/01/2019 6999 EST Pt POD1 s/p L1-5 posterior decomp, L3-5 instrumented fusion, and dural tear repair, dry drsg c/d/i.Pt only tolerating raising HOB to 55 degrees so far, willing to try higher tomorrow. Pt rates lowerback pain at 7/10 consistently. Pt has class III tele orders for a-fib monitoring, required IV metoprolol previous night. #[id number] paged about need to renew or d/c tele and about new concern of L. Hand swelling after pulling out leaky IV. MD Resendiz d/c'd tele orders--notify [id number] if HR sustains in 120s-130s. assessed pt's [...] Health care treatment directive, Durable power of assistant county attorney for healthcare Copy in Chart: Yes, previous copy on file @ [facility] DIRECTIVES FOR FINANCES: Directive For Finances: No TRANSPORTATION: Transportation: Family, Self CULTURAL, SAMARITAN and/or LANGUAGE factors affecting health care/discharge planning: [...] Services: None DME Provider: [id number] - [place], [place] - [address] [facility] [address] [facility] [address] Home Health: Other: POST HOSPITAL TRANSITION PLAN: Patient will plan to discharge to his second house where his spouse lives. She will be his transportation and main source of support while recovering. Spouse lives at [address] [place] [address] and patient will be going to this address after surgery and receiving home health services through [facility]. Patient has necessary DME, [...] symmetric Facial sensation grossly intact No drift Industry Operations Investigator 5/5 bl Elbow extension and flexion 5/5 [...] Gomes MD Neurosurgery resident 06/01/2019 9:49 Page 7517 with questions * Ankita Tran RN - [...] symmetric Facial sensation grossly intact No drift Industry Operations Investigator 5/5 bl Elbow extension and flexion 5/5 [...] MARROQUIN MD Neurosurgery resident 05/31/2019 8:38 Page 4568 with questions documented in this encounter H&P Notes * Kirk Martinez MD - 05/31/2019 0700 EST The preoperative history and physical which was performed within 30 days of this procedure has been reviewed and the clinically appropriate elements of the physical examination have been repeated. There are no changes to the documented history and physical or if so such changes are documented below iKrk Martinez MD 05/31/2019 7:00 Cosigned by Caleb Ahumada MD at 06/08/2019 16:03 EST Source Note - PATIENT CENTERED CARE SPECIALIST, CYNDIE 2 - 05/24/2019 16:30 EST documented in this encounter OR Notes * OR Surgeon - Caleb Ahumada MD - 05/31/2019 0000 EST OPERATIVE REPORT SERVICE DATE: 05/31/2019 SURGEON: Robi Ahumada MD DEHAIRING MACHINE TENDER: Good Small MD PROCEDURES: 1. [...] processes. Intraoperative x-ray confirmed correct level. A Share[employer] reference array was placedon the L5 spinous process and a high resolution cone beam CT obtained with the O-arm. I then broke scrub and prep performed surgical planning on the [employer] workstation. I then scrubbed and reenteredthe field and tested points, confirming a satisfactory registration. Starting on the right side at L3, a medical lab specialist hole was drilled and a pedicle finder [...] / S Rios Ahumada MD cn Confirmation: [id number] Dictation ID: [id number] * Preprocedure Instructions - Tamy Corrales, RN - 05/29/2019 1516 EST Nakul Rodgers Flaco has been instructed as follows regarding medication [...] D: Patient noted with discharge orders to: [facility]. A: Belongings collected and sent home with patient. Report called to Krystal at [facility] on the Rehab unit. R: Pt left [...] Care - Hugo Mckeon RN - 06/03/2019 1850 EST Problem: Daily Care Plan Goals Goal: Care Plan Documentation Outcome: Met This Shift Flowsheets (Taken 06/02/20192039 by Laurita Garcia, LAUREL) Goal This Shift: pain will be tolerable [...] CASTILLO RN 06/02/2019 14:34 * Plan of Leonela - Daniele Del Castillo RN - 06/01/2019 [...] Gave scheduled and prn pain meds (see AUG). Raised HOB Q1. Removed leaking PIV from [...] and tisseal SURGEON = Rios Ahumada MD DEHAIRING MACHINE TENDER = Good Small MD ANESTHESIA = GETA COMPLICATIONS = Durotomy FINDINGS = Bony and ligamentous stenosis EBL = 450 IVF = See anesthesia record UOP = See anesthesia record SPECIMENS/CULTURES = None DRAINS = None SKIN = Nylon DISPO = PACU then Floor HOB flat, Bedrest until tomorrow AM, Logroll okay Good Small MD Neurosurgery resident 05/31/2019 15:19 Page 1625 with questions documented in this encounter Plan [...] EST) 06/09/2019 9:05 EST us Scan 2 Fishing Tackle Repairer PROCEDURE/MINOR SURGICAL OR DERABLES Final Result * (ABNORMAL) COMPLETE BLOOD COUNT AND DIFFERENTIAL (06/06/2019 6:41 EST) WBC 6.40 4.00 - 10.40 K/cmm 06/06/2019 7:01 [facility] RBC 2.72(L) 4.36 - 5.78 M/cmm 06/06/2019 7:01 [facility] Hemoglobin 8.3(L) 13.8 - 17.3 gm/dL 06/06/2019 7:01 [facility] HCT 24.1(L) 39.5 - 50.2 % 06/06/2019 7:01 [facility] MCV 89 81 - 95 fl 06/06/2019 7:01 [facility] MCH 30.5 27.6 - 33.0 pg 06/06/2019 7:01 [facility] MCHC 34.4 32.8 - 36.4 gm/dL 06/06/2019 7:01 [facility] RDW-CV 13.9 <14.2 % 06/06/2019 7:01 [facility] RDW-SD 44.9 <46.0 fl 06/06/2019 7:01 [facility] PLT 269 141 - 377 K/cmm 06/06/2019 7:01 [facility] MPV 9.6 9.5 - 12.7 fl 06/06/2019 7:01 [facility] % Neutrophils 64.5 % 06/06/2019 7:01 [facility] % Lymphocytes 19.8 % 06/06/2019 7:01 [facility] % Monocytes 13.3 % 06/06/2019 7:01 [facility] % Eosinophils 1.3 % 06/06/2019 7:01 [facility] % Basophils 0.2 % 06/06/2019 7:01 [facility] % Immature Grans 0.9 % 06/06/20 19 7:01 [facility] Absolute Neutrophils 4.13 2.20 - 8.85 K/cmm 06/06/2019 7:01 [facility] Absolute Lymphocytes 1.27 1.09 - 3.30 K/cmm 06/06/2019 7:01 [facility] Absolute Monocytes 0.85(H) 0.10 - 0.80 K/cmm 06/06/2019 7:01 [facility] Absolute Eosinophils 0.08 0.03 - 0.61 K/cmm 06/06/2019 7:01 [facility] ABS Basophils 0.01 0.01 - 0.11 K/cmm 06/06/2019 7:01 [facility] Absolute Immature Grans 0.06 0.00 - 0.06 K/cmm 06/06/2019 7:01 [facility] Type of Differential: Auto 06/06/2019 7:01 [facility] Blood VENOUS BLOOD / Unknown Venipuncture / Unknown 06/06/2019 6:41 EST 06/06/2019 6:54 EST Murray Gomes MD PACKAGES & DNA PROBE OR DERABLES Final Result Performing Organization Address [facility] Co de Phone Number [facility] [address] [place] [address] * (ABNORMAL) ELECTROLYTES (06/06/2019 6:41 EST) Sodium 134(L) 136 - 145 mEq/L 06/06/2019 7:19 [facility] Potassium 3.6 3.5 - 5.0 mEq/L 06/06/2019 7:19 [facility] Chloride 99 96 - 110 mEq/L 06/06/2019 7:19 [facility] CO2 Total 28 22 - 32 mEq/L 06/06/2019 7:19 [facility] Blood VENOUS BLOOD / Unknown Venipuncture / Unknown 06/06/2019 6:41 EST 06/06/2019 6:54 EST Murray Gomes MD CHEMISTRY & BLOOD GAS O RDERABLES Final Result Performing Organization Address [facility] de Phone Number [facility] [address] [place] [address] * ECG REPORT - SCANNED (06/05/2019 14:40 EST) 06/05/2019 14:4 0 EST us Scan 2 Fishing Tackle Repairer PROCEDURE/MINOR SURGICAL OR DERABLES Final Result * (ABNORMAL) COMPLETE BLOOD COUNT AND DIFFERENTIAL (06/03/2019 5:29 EST) WBC 10.99(H) 4.00 - 10.40 K/cmm 06/03/2019 6:24 [facility] RBC 2.98(L) 4.36 - 5.78 M/cmm 06/03/2019 6:24 [facility] Hemoglobin 8.8(L) 13.8 - 17.3 gm/dL 06/03/2019 6:24 [facility] HCT 26.2(L) 39.5 - 50.2 % 06/03/2019 6:24 [facility] MCV 88 81 - 95 fl 06/03/2019 6:24 [facility] MCH 29.5 27.6 - 33.0 pg 06/03/2019 6:24 [facility] MCHC 33.6 32.8 - 36.4 gm/dL 06/03/2019 6:24 [facility] RDW-CV 13.5 <14.2 % 06/03/2019 6:24 [facility] RDW-SD 43.8 <46.0 fl 06/03/2019 6:24 [facility] PLT 149 141 - 377 K/cmm 06/03/2019 6:24 [facility] MPV 10.9 9.5 - 12.7 fl 06/03/2019 6:24 [facility] % Neutrophils 78.6 % 06/03/2019 6:24 [facility] % Lymphocytes 12.5 % 06/03/2019 6:24 [facility] % Monocytes 7.8 % 06/03/2019 6:24 [facility] % Eosinophils 0.4 % 06/03/2019 6:24 [facility] % Basophils 0.1 % 06/03/2019 6:24 [facility] % Immature Grans 0.6 % 06/03/20 19 6:24 [facility] Absolute Neutrophils 8.64 2.20 - 8.85 K/cmm 06/03/2019 6:24 [facility] Absolute Lymphocytes 1.37 1.09 - 3.30 K/cmm 06/03/2019 6:24 [facility] Absolute Monocytes 0.86(H) 0.10 - 0.80 K/cmm 06/03/2019 6:24 [facility] Absolute Eosinophils 0.04 0.03 - 0.61 K/cmm 06/03/2019 6:24 [facility] ABS Basophils 0.01 0.01 - 0.11 K/cmm 06/03/2019 6:24 [facility] Absolute Immature Grans 0.07(H) 0.00 - 0.06 K/cmm 06/03/2019 6:24 [facility] Type of Differential: Auto 06/03/2019 6:24 [facility] Blood VENOUS BLOOD / Unknown Venipuncture / Unknown 06/03/2019 5:29 EST 06/03/2019 6:11 EST Good Small MD PACKAGES & DNA PROBE ORDERA BLES Final Result Performing Organization Address [facility] Co de Phone Number [facility] [address] [place] [address] * (ABNORMAL) CREATININE (06/03/2019 5:29 EST) Creatinine 0.64(L) 0.66 - 1.25 mg/dL 06/03/2019 6:49 [facility] eGFR 95 >60 mL/min/1.7 3m2 06/03/2019 6:49 [facility] Comment:eGFR calculated usin g CKD-EPI equation for non- Americans. Multiply eGFR by 1.16 for patients. Blood VENOUS BLOOD / Unknown Venipuncture / Unknown 06/03/2019 5:29 EST 06/03/2019 6:19 EST us Good Small MD CHEMISTRY & BLOOD GAS ORDER KAYLIE Final Result Performing Organization Address [facility] Co de Phone Number [facility] [address] [place] [address] * BUN (06/03/2019 5:29 EST) BUN 15 10 - 26 mg/dL 06/03/2019 6:49 [facility] Blood VENOUS BLOOD / Unknown Venipuncture / Unknown 06/03/2019 5:29 EST 06/03/2019 6:19 EST us Good Small MD CHEMISTRY & BLOOD GAS ORDER KAYLIE Final Result Performing Organization Address [facility] Co de Phone Number [facility] [address] [place] [address] * (ABNORMAL) ELECTROLYTES (06/03/2019 5:29 EST) Sodium 128(L) 136 - 145 mEq/L 06/03/2019 6:49 EST [facility] Potassium 3.6 3.5 - 5.0 mEq/L 06/03/2019 6:49 EST [facility] Chloride 95(L) 96 - 110 mEq/L 06/03/2019 6:49 EST [facility] CO2 Total 30 22 - 32 mEq/L 06/03/2019 6:49 EST [facility] Blood VENOUS BLOOD / Unknown Venipuncture / Unknown 06/03/2019 5:29 EST 06/03/2019 6:19 EST us Good Small MD CHEMISTRY & BLOOD GAS ORDER KAYLIE Final Result Performing Organization Address [facility] de Phone Number [facility] [address] [place] [address] * XR LUMBAR SPINE 2-3 VIEWS (06/02/2019 [...] 13.38(H) 4.00 - 10.40 K/cmm 06/02/2019 6:35 [facility] RBC 3.22(L) 4.36 - 5.78 M/cmm 06/02/2019 6:35 [facility] Hemoglobin 9.7(L) 13.8 - 17.3 gm/dL 06/02/2019 6:35 [facility] HCT 28.7(L) 39.5 - 50.2 % 06/02/2019 6:35 [facility] MCV 89 81 - 95 fl 06/02/2019 6:35 [facility] MCH 30.1 27.6 - 33.0 pg 06/02/2019 6:35 [facility] MCHC 33.8 32.8 - 36.4 gm/dL 06/02/2019 6:35 [facility] RDW-CV 13.9 <14.2 % 06/02/2019 6:35 [facility] RDW-SD 45.2 <46.0 fl 06/02/2019 6:35 [facility] PLT 143 141 - 377 K/cmm 06/02/2019 6:35 [facility] MPV 11.2 9.5 - 12.7 fl 06/02/2019 6:35 [facility] % Neutrophils 80.3 % 06/02/2019 6:35 [facility] % Lymphocytes 10.3 % 06/02/2019 6:35 [facility] % Monocytes 8.7 % 06/02/2019 6:35 [facility] % Eosinophils 0.1 % 06/02/2019 6:35 [facility] % Basophils 0.1 % 06/02/2019 6:35 [facility] % Immature Grans 0.5 % 06/02/20 19 6:35 [facility] Absolute Neutrophils 10.73(H) 2.20 - 8.85 K/cmm 06/02/2019 6:35 [facility] Absolute Lymphocytes 1.38 1.09 - 3.30 K/cmm 06/02/2019 6:35 [facility] Absolute Monocytes 1.17(H) 0.10 - 0.80 K/cmm 06/02/2019 6:35 [facility] Absolute Eosinophils 0.01(L) 0.03 - 0.61 K/cmm 06/02/2019 6:35 [facility] ABS Basophils 0.02 0.01 - 0.11 K/cmm 06/02/2019 6:35 [facility] Absolute Immature Grans 0.07(H) 0.00 - 0.06 K/cmm 06/02/2019 6:35 [facility] Type of Differential: Auto 06/02/2019 6:35 [facility] Blood VENOUS BLOOD / Unknown Venipuncture / Unknown 06/02/2019 5:35 EST 06/02/2019 6:21 EST us Good Small MD PACKAGES & DNA PROBE ORDERA BLES Final Result Performing Organization Address [facility]/ZIP Co de Phone Number [facility] [address] [place] [address] * CREATININE (06/02/2019 5:35 EST) Creatinine 0.84 0.66 - 1.25 mg/dL 06/02/2019 6:55 [facility] eGFR 85 >60 mL/min/1.7 3m2 06/02/2019 6:55 [facility] Comment:eGFR calculated usvera g CKD-EPI equation for non- Americans. Multiply eGFR by 1.16 for patients. Blood VENOUS BLOOD / Unknown Venipuncture / Unknown 06/02/2019 5:35 EST 06/02/2019 6:21 EST us Good Small MD CHEMISTRY & BLOOD GAS ORDER KAYLIE Final Result Performing Organization Address [facility] Co de Phone Number [facility] [address] [place] [address] * BUN (06/02/2019 5:35 EST) Pathologist [facility] BUN 16 10 - 26 mg/dL 06/02/2019 6:55 [facility] Blood VENOUS BLOOD / Unknown Venipuncture / Unknown 06/02/2019 5:35 EST 06/02/2019 6:21 EST us Good Small MD CHEMISTRY & BLOOD GAS ORDER KAYLIE Final Result Performing Organization Address [facility] Co de Phone Number [facility] [address] [place] [address] * (ABNORMAL) ELECTROLYTES (06/02/2019 5:35 EST) Sodium 129(L) 136 - 145 mEq/L 06/02/2019 6:55 [facility] Potassium 4.0 3.5 - 5.0 mEq/L 06/02/2019 6:55 [facility] Chloride 96 96 - 110 mEq/L 06/02/2019 6:55 [facility] CO2 Total 28 22 - 32 mEq/L 06/02/2019 6:55 [facility] Blood VENOUS BLOOD / Unknown Venipuncture / Unknown 06/02/2019 5:35 EST 06/02/2019 6:21 EST us Good Small MD CHEMISTRY & BLOOD GAS ORDER KAYLIE Final Result [facility] [address] [place] [address] * (ABNORMAL) COMPLETE BLOOD COUNT AND DIFFERENTIAL (06/01/2019 5:24 EST) WBC 10.88(H) 4.00 - 10.40 K/cmm 06/01/2019 6:02 [facility] RBC 3.43(L) 4.36 - 5.78 M/cmm 06/01/2019 6:02 [facility] Hemoglobin 10.3(L) 13.8 - 17.3 gm/dL 06/01/2019 6:02 [facility] HCT 30.5(L) 39.5 - 50.2 % 06/01/2019 6:02 [facility] MCV 89 81 - 95 fl 06/01/2019 6:02 [facility] MCH 30.0 27.6 - 33.0 pg 06/01/2019 6:02 [facility] MCHC 33.8 32.8 - 36.4 gm/dL 06/01/2019 6:02 [facility] RDW-CV 14.3(H) <14.2 % 06/01/2019 6:02 [facility] RDW-SD 46.1(H) <46.0 fl 06/01/2019 6:02 [facility] PLT 134(L) 141 - 377 K/cmm 06/01/2019 6:02 [facility] MPV 11.4 9.5 - 12.7 fl 06/01/2019 6:02 [facility] % Neutrophils 75.8 % 06/01/2019 6:02 [facility] % Lymphocytes 12.2 % 06/01/2019 6:02 [facility] % Monocytes 11.5 % 06/01/2019 6:02 [facility] % Eosinophils 0.0 % 06/01/2019 6:02 [facility] % Basophils 0.1 % 06/01/2019 6:02 [facility] % Immature Grans 0.4 % 06/01/20 19 6:02 [facility] Absolute Neutrophils 8.25 2.20 - 8.85 K/cmm 06/01/2019 6:02 [facility] Absolute Lymphocytes 1.33 1.09 - 3.30 K/cmm 06/01/2019 6:02 [facility] Absolute Monocytes 1.25(H) 0.10 - 0.80 K/cmm 06/01/2019 6:02 [facility] Absolute Eosinophils 0.00(L) 0.03 - 0.61 K/cmm 06/01/2019 6:02 [facility] ABS Basophils 0.01 0.01 - 0.11 K/cmm 06/01/2019 6:02 [facility] Absolute Immature Grans 0.04 0.00 - 0.06 K/cmm 06/01/2019 6:02 [facility] Type of Differential: Auto 06/01/2019 6:02 [facility] Blood VENOUS BLOOD / Unknown Venipuncture / Unknown 06/01/2019 5:24 EST 06/01/2019 5:51 EST us Good Small MD PACKAGES & DNA PROBE ORDERA BLES Final Result [facility] [address] [place] [address] * CREATININE (06/01/2019 5:24 EST) Creatinine 0.79 0.66 - 1.25 mg/dL 06/01/2019 6:18 [facility] eGFR 87 >60 mL/min/1.7 3m2 06/01/2019 6:18 [facility] Comment:eGFR calculated tio plascencia CKD-EPI equation for non- Americans. Multiply eGFR by 1.16 for patients. Blood VENOUS BLOOD / Unknown Venipuncture / Unknown 06/01/2019 5:24 EST 06/01/2019 5:51 EST Good Small MD CHEMISTRY & BLOOD GAS ORDER KAYLIE Final Result Performing Organization Address [facility] Co de Phone Number [facility] [address] [place] [address] * BUN (06/01/2019 5:24 EST) BUN 15 10 - 26 mg/dL 06/01/2019 6:18 EST [facility] Blood VENOUS BLOOD / Unknown Venipuncture / Unknown 06/01/2019 5:24 EST 06/01/2019 5:51 EST Good Small MD CHEMISTRY & BLOOD GAS ORDER KAYLIE Final Result Performing Organization Address [facility] de Phone Number [facility] [address] [place] [address] * (ABNORMAL) ELECTROLYTES (06/01/2019 5:24 EST) Sodium 134(L) 136 - 145 mEq/L 06/01/2019 6:18 [facility] Potassium 4.1 3.5 - 5.0 mEq/L 06/01/2019 6:18 [facility] Chloride 102 96 - 110 mEq/L 06/01/2019 6:18 [facility] CO2 Total 27 22 - 32 mEq/L 06/01/2019 6:18 [facility] Blood VENOUS BLOOD / Unknown Venipuncture / Unknown 06/01/2019 5:24 EST 06/01/2019 5:51 EST Good Small MD CHEMISTRY & BLOOD GAS ORDER KAYLIE Final Result Performing Organization Address [facility] Co de Phone Number [facility] [address] [place] [address] * XR LUMBAR SPINE 1 VIEW (05/31/2019 [...] Nounexpected radiopaque foreign bodies. Caleb CARSON DIAGNOSTIC IMAGING OR DERABLES Final Result * FL C-ARM 0-1 HOUR (05/31/2019 10:28 EST) us Caleb CARSON OTHER IMAGING ORDERAB LES Final Result * XR LUMBAR SPINE 2-3 VIEWS (05/31/2019 10:27 EST) Narrative 07/14/2019 10:29 EST This is a non-reportable exam. Caleb CRAFT DIAGNOSTIC IMAGING OR DERABLES Final Result * [...] above interpretation andagree with the findings. Caleb CARSON DIAGNOSTIC IMAGING OR DERABLES Final [...] the L2 spinous process, directed towards the [id number] and L3 vertebral body. IMPRESSION Intraoperative localization Dr. Wang reviewed these findings with Dr. Ahumada on 05/31/2019 at 8:18AM. I have personally reviewed the images and the above interpretation andagree with the findings. us Caleb Ahumada MD IMG DIAGNOSTIC IMAGING OR DERABLES Final Result * TYPE AND SCREEN (05/31/2019 6:35 EST) ABO A 05/31/2019 8:35 EST [facility] Rh Factor Positive 05/31/2019 8:35 EST [facility] Antibody Screen Negative 05/31/2019 8:35 EST [facility] Specimen Expires: 06/03/2019 @ 23:59 05/31/2019 8:35 EST [facility] Blood VENOUS BLOOD / Unknown Venipuncture / Unknown 05/31/2019 6:35 EST 05/31/2019 6:35 EST us Chencho Tarango MD BLOOD BANK TESTS Edited Re sult - Final [facility] [address] [place] [address] documented in this encounter Visit Diagnoses Diagnosis [...] intravenous, EVERY 6 HOURS PRN, Starting on Veran 06/01/19 at 0109, Until Wed06/06/19 at 1242, [...] Verna 06/01/19 at 2100, Until Discontinued, Routine 2017 (Given - Provider: Yelena Owen RN) 002 (Given - Provider: Vito Trejo RN - [...] Patient/family refused) 105 (Not Given - Provider: Hugo Mckeon RN - Reason: Patient/family refused)2012 (Not Given - Provider: Vito Trejo RN - Reason: Patient/family refused) 08 (Not Given - Provider: Quinn Adrian RN [...] Discontinued, Routine 2019 (Given - Provider: Yelena Owen, LAUREL) 2012 (Given - Provider: Vito Trejo, RN) [...] Mckeon RN)1413 (See Alternative - Provider: Hugo Mckeon, LAUREL) 0008 (See Alternative - Provider: Vito Trejo, [...] Mckeon RN)1413 (See Alternative - Provider: Hugo Mckeon, LAUREL) 0008 (See Alternative - Provider: Vito Trejo, RN) acetaminophen (TYLENOL) tablet 650 mg(Linked Group 1) 650 mg, oral, EVERY 4 HOURS PRN, Starting on Wed05/31/19 at 1520, Until Wed06/06/19 at 1242, Pain, Routine, Release 0605 (Given - Provider: Laurita Garcia RN)1040 (Given - Provider: Hugo Mckeon RN)1625 (Given - Provider: Hugo Mckeon RN)2019 (Given - Provider: Yelena Owen RN) 0123 (Given - Provider: Yelena Owen RN)1025 (Given - Provider: Hugo Mckeon RN)1413 (Given [...] 40 mg 1 11/2018 polyethylene glycol 3350 ([place] RALAX) packet 17 g 1 06/02/2019 senna [...] 05/2806/04/2019 documented in this encounter Care Teams Restaurant Assistant Manager Relationship Specialty Start Date End Date Garcia Gonzales MD [address] [place] [address] PCP - General 09/03/09 documented as of this encounter
--- OUTSIDE RECORDS SUMMARY | 2024-07-19 13:47 | XMS_ITS | Encounter Summary ---
Author Organization [facility] Address [address] [place] [address] Care Team Providers Care Cutting Machine Operator Name Role Phone Garcia Gonzales MD Primary Care Provider [phone] Reason for Visit * Reason Onset Date Comments Appointment Related 08/09/2019 Encounter Details Date Type Department Care Team (Late st Contact Info) Description 08/09/[address] [address] Caleb Ahumada MD [address] [place] [address], [address] [place] [phone] Appointment Related Social History Tobacco Use Types [...] having any questions at this time. Location: [facility] Provider: Rios Ahumada MD Date: 09/05/19 Time: 11:30am documented in this encounter Plan of Treatment Not on file documented as of this encounter Visit Diagnoses Not on filedocumented in this encounter Care Teams Cutting Machine Operator Relationship Specialty Start Date End Date Garcia Gonzales MD [address] [place] [address] PCP - General 09/03/09 documented as of this encounter
--- OUTSIDE RECORDS SUMMARY | 2024-07-19 13:47 | XMS_ITS | Encounter Summary ---
Author Organization [facility] Address [address] [place] [address] Care Team Providers Care Forex Trader Name Role Phone Garcia Gonzales MD Primary Care Provider [phone] Encounter Details Date Type Department Care Team (Late st Contact Info) Description 05/03/2019 Pre-Procedure Orders Encounter [facility] Neurosurgery - [address] [id number] Queta Hall PA-C [address] [place] [address], [address] [place] [phone] Spinal stenosis of lumbar region, [...] 01/19/2019 1:00 EDT Brooklyn Murray , LAUREL * Because of a physical, [...] Primary documented in this encounter Care Teams Forex Trader Relationship Specialty Start Date End Date Garcia Gonzales MD [address] [place] [address] PCP - General 09/03/09 documented as of this encounter
--- OUTSIDE RECORDS SUMMARY | 2024-07-19 13:48 | XMS_ITS | Encounter Summary ---
Author Organization [facility] Address [address] [place] [address] Care Team Providers Care Surgical Oncologist Name Role Phone Garcia Gonzales MD Primary Care Provider [phone] Reason for Visit * Reason Comments Neck Pain Encounter Details Date Type Department Care Team (Late st Contact Info) Description 12/13/2018 11:[address] [facility] Neurosurgery - [address] [address] Caleb Ahumada MD [address] [place] [address], [address] [place] [phone] Cervical spondylosis with myelopathy and radiculopathy (Primary [...] as of this encounter Functional Status * Because of a physical, mental, or emotional condition, does this person have difficulty doing errands alone such as visiting a doctor's office or shopping? Answer Date of Assessment Author No 11/22/2018 11:57 EDT documented as of this encounter Mental Status * Because of a physical, mental, or emotional condition, does this person have serious difficulty concentrating, remembering, or making decisions? Answer Entry Date Author No 11/22/2018 11:57 EDT documented in this encounter Discharge Diagnoses Diagnosis M47.12 Other spondylosis with myelopathy, cervical region-M47.12[ICD-10-CM] M47.22 Other spondylosis with radiculopathy, cervical region-M47.22[ICD-10-CM] documented in this encounter Discharge Disposition Disposition Code Departure Means Destination Auto Discharge documented in this encounter Progress Notes * Robi Ahumada MD, - 12/13/2018 1100 EDT Mr. Sam returns [...] answered. Twenty-five minutes of this 40 minute [id number] visit were spent in patient counseling. documented in this encounter Plan of Treatment Not on file documented as of this encounter Visit Diagnoses Diagnosis Cervical spondylosis with myelopathy and radiculopathy- Primary documented in this encounter Care Teams Surgical Oncologist Relationship Specialty Start Date End Date Garcia Gonzales MD [address] [place] [address] PCP - General 09/03/09 documented as of this encounter
--- OUTSIDE RECORDS SUMMARY | 2024-07-19 13:48 | XMS_ITS | Encounter Summary ---
Author Organization [facility] Address [address] [place] [address] Care Team Providers Care Therapy Site Coordinator Name Role Phone Garcia Gonzales MD Primary Care Provider [phone] Encounter Details Date Type Department Care Team (Late st Contact Info) Description 12/20/2018 Results Only Imaging [facility] [phone] Unknown, Provider, Social History Tobacco Use Types [...] 11/22/2018 11:57 EDT documented in this encounter Plan of Treatment Not on file documented as of this encounter Visit Diagnoses Not on filedocumented in this encounter Care Teams Therapy Site Coordinator Relationship Specialty Start Date End Date Garcia Gonzales MD [address] [place] [address] PCP - General 09/03/09 documented as of this encounter
--- OUTSIDE RECORDS SUMMARY | 2024-07-19 13:48 | XMS_ITS | Encounter Summary ---
Author Organization [facility] Address [address] [place] [address] Care Team Providers Care Party Plan Demonstrator Name Role Phone Garcia Gonzales MD Primary Care Provider [phone] Reason for Visit * Reason Onset Date Comments Appointment Related 11/14/2018 Encounter Details Date Type Department Care Team (Late st Contact Info) Description 11/14/2018 Telephone [facility] Neurosurgery - [address] [address] Caleb Ahumada MD 111 [facility], [address] 5 [place] [phone] Appointment Related Social History Tobacco Use Types [...] that we have the MRI imaging from [facility]. * Telephone Encounter - Cristy Winter - 11/14/2018 1104 EDT Please call patient He has questions Does he need a prior auth from [facility] As they are the ones that referred him to Dr Matthews. Also Have we received all necessary paperwork needed Along with radiology results Please call To advise documented in this encounter Plan of Treatment Not on file documented as of this encounter Visit Diagnoses Not on filedocumented in this encounter Care Teams Party Plan Demonstrator Relationship Specialty Start Date End Date Garcia Gonzales MD [address] [place] [address] PCP - General 09/03/09 documented as of this encounter
--- OUTSIDE RECORDS SUMMARY | 2024-07-19 13:48 | XMS_ITS | Encounter Summary ---
Author Organization [facility] Address [address] [place] [address] Care Team Providers Care Cable Reeler Name Role Phone Garcia Gonzales MD Primary Care Provider [phone] Encounter Details Date Type Department Care Team (Late st Contact Info) Description 12/18/2009 10:50 EDT - 12/18/2009 23:59 EDT Hospital Encounter [facility] Op[facility]mology - [address] [address] Shravan Narayanan MD 111 [facility], [address] [place] [phone] Discharge Disposition: Home or Self Care Social History Tobacco Use Types Packs/Day Years Used Date Smoking Tobacco: Never Assessed Sex and Gender Information Value Date Recorded Sex Assigned at Not on file Legal Sex Male 18:22 EST Gender Identity Male 06/01/2019 13:40 EST Sexual Orientation Not on file documented as of this encounter Discharge Disposition Disposition Code Departure Means Destination Home or Self Nursing Home documented in this encounter Progress Notes * Shravan Narayanan MD - 12/18/2009 0000 EDT [facility] December 18, 2009 Hernandez [facility] [address], [address] [place] [address] Dear Hernandez: Your nice patient, Mr Sam, [...] any new change requires expeditious reassessment, i.e., [id number] to 48 hours. Thanks so much for letting me take part in the care of with this nice gentleman. Sincerely, Electronically Signed by Shravan Narayanan MD 12/23/2009 14:02 Shravan Narayanan MD [facility] [address] [place] [address] - Shravan Narayanan MD - LW Job ID: SM Doc ID: [id number] Ext Doc ID: [id number] cc: Hernandez Mcleod OD documented in this encounter Plan of Treatment Not on file documented as of this encounter Visit Diagnoses Not on filedocumented in this encounter Care Teams Cable Reeler Relationship Specialty Start Date End Date Garcia Gonzales MD [address] [place] [address] PCP - General 09/03/09 documented as of this encounter
--- OUTSIDE RECORDS SUMMARY | 2024-07-19 13:48 | XMS_ITS | Encounter Summary ---
Author Organization [facility] Address [address] [place] [address] Care Team Providers Care Concert Promoter Name Role Phone Garcia Gonzales MD Primary Care Provider [phone] Reason for Visit * Reason Onset Date Comments Appointment Related 11/23/2018 Encounter Details Date Type Department Care Team (Late st Contact Info) Description 11/23/2018 Telephone [facility] - [address] [address] Caleb Ahumada MD [address] [place] [address], [address] [place] [phone] Appointment Related Social History Tobacco Use Types [...] 11/22/2018 11:57 EDT documented in this encounter Miscellaneous Notes * Telephone Encounter - Josephine Tijerina - 11/23/2018 1428 EDT Confirmed the following appointment details with Nakul: ?? 12/08 - [facility] Check in at 9:45am MRI at 10:00am ?? 12/13 - [facility] Appt at 11:00am with Dr. Rios Ahumada ?? Nakul verbalized understanding and denied having any questions. documented in this encounter Plan of Treatment Not on file documented as of this encounter Visit Diagnoses Not on filedocumented in this encounter Care Teams Concert Promoter Relationship Specialty Start Date End Date Garcia Gonzales MD [address] [place] [address] PCP - General 09/03/09 documented as of this encounter
--- OUTSIDE RECORDS SUMMARY | 2024-07-19 13:48 | XMS_ITS | Encounter Summary ---
Author Organization [facility] Address [address] [place] [address] Care Team Providers Care Biological Sciences Instructor Name Role Phone Garcia Gonzales MD Primary Care Provider [phone] Encounter Details Date Type Department Care Team (Latest Contact Info) Description 11/11/2018 16:08 EDT - 11/11/2018 23:59 EDT Hospital Encounter [address] [address] Unknown, Provider, MD Discharge Disposition: Home or Self Care Social History Tobacco Use Types Packs/Day Years Used Date Smoking Tobacco: Never Assessed Sex and Gender Information Value Date Recorded Sex Assigned at Not on file Legal Sex Male 18:22 EST Gender Identity Male 06/01/2019 13:40 EST Sexual Orientation Not on file documented as of this encounter Discharge Disposition Disposition Code Departure Means Destination Home or Self Intermediate documented in this encounter Plan of Treatment Not on file documented as of this encounter Visit Diagnoses Not on filedocumented in this encounter Care Teams Biological Sciences Instructor Relationship Specialty Start Date End Date Garcia Gnozales MD [address] [place] [address] PCP - General 09/03/09 documented as of this encounter
--- OUTSIDE RECORDS SUMMARY | 2024-07-19 13:48 | XMS_ITS | Encounter Summary ---
Author Organization [facility] Address [address] [place] [address] Care Team Providers Care Shingles Roofer Helper Name Role Phone Garcia Gonzales MD Primary Care Provider [phone] Reason for Visit * Reason Onset Date Comments Update 12/16/2018 Encounter Details Date Type Department Care Team (Late st Contact Info) Description 12/16/2018 Telephone [facility] [address] [place], [place] [phone] Renea Petersen, RN Update Social History Tobacco [...] Encounter - Renea Petersen RN - 12/16/2018 4392 EDT Received a call from the patient [...] on filedocumented in this encounter Care Teams Shingles Roofer Helper Relationship Specialty Start Date End Date Garcia Gonzales MD [address] [place] [address] PCP - General 09/03/09 documented as of this encounter
--- OUTSIDE RECORDS SUMMARY | 2024-07-19 13:48 | XMS_ITS | Encounter Summary ---
Author Organization [facility] Address [address] [place] [address] Care Team Providers Care Qc Scientist Name Role Phone Garcia Gonzales MD Primary Care Provider [phone] Encounter Details Date Type Department Care Team (Late st Contact Info) Description 09/10/2009 12:47 EDT - 09/10/2009 23:59 EDT Hospital Encounter [facility] Op[facility] - [address] [address] Shravan Narayanan MD 111 [facility], [address] 5 [place] [phone] Discharge Disposition: Home or Self Care Social History Tobacco Use Types Packs/Day Years Used Date Smoking Tobacco: Never Assessed Sex and Gender Information Value Date Recorded Sex Assigned at Not on file Legal Sex Male 18:22 EST Gender Identity Male 06/01/2019 13:40 EST Sexual Orientation Not on file documented as of this encounter Discharge Disposition Disposition Code Departure Means Destination Home or Self Half-Way documented in this encounter Procedure Notes * Shravan Narayanan MD - 09/10/2009 0000 EDT DIVISION [facility] PROCEDURE REPORT SERVICE DATE: 09/10/2009 COLOR [...] Shravan Narayanan MD [facility] [address] [place] [address] - Shravan Narayanan MD - GLT Job ID: SM Doc ID: [id number] Ext Doc ID: [id number] cc: documented in this encounter Consult Notes * Shravan Narayanan MD - 09/10/2009 0000 EDT [facility] CONSULTATION - 09/10/2009 Hernandez [facility] [place] [address] Dear Hernandez: Your very nice patient, Mr [...] is no leakage consistent with either active MINER OPERATOR or with choroidal neovascularization. Assessment: 1. Pigmentary changes, juxtafoveal. 2. Tiny foveal pigment epithelial detachment, right. 3. No leakage consistent with CNVM or active MINER OPERATOR. Comment: Hernandez, this is an interesting patient. He does not have a lot of drusen and therefore I am thinking that probably this is not classic macular degeneration. He says that he saw you first aboutsix years ago and really did not see an street light mechanic prior to that. I wonder if the [...] Shravan Narayanan MD [facility] [address] [place] [address] - Shravan Narayanan MD - [facility] Job ID: SM Doc ID: [id number] Ext Doc ID: [id number] cc: Deena Kincaid OD documented in this encounter Plan of Treatment Not on file documented as of this encounter Visit Diagnoses Not on filedocumented in this encounter Care Teams Qc Scientist Relationship Specialty Start Date End Date Garcia Gonzales MD [address] [place] [address] PCP - General 09/03/09 documented as of this encounter
--- OUTSIDE RECORDS SUMMARY | 2024-07-19 13:48 | XMS_ITS | Encounter Summary ---
Author Organization [facility] Address [address] [place] [address] Care Team Providers Care Histology Assistant Name Role Phone Garcia Gonzales MD Primary Care Provider [phone] Reason for Referral * Radiology Services (Routine) - New Request Specialty Diagnoses / Procedures Referred By Contac t Referred To Contact Diagnoses Spinal stenosis of lumbar region, unspecified whether neurogenic claudication present Procedures L SPINE 4 OR MORE VIEWS Zaynab Hernández PA-C Phone: tel: fax: Referral ID Status Reason Start Date Expiration Date V isits Requested Visits Authorized [id number] New Request 11/10/2018 1 1 Reason for Visit * Reason Onset Date Comments Appointment Related 11/10/2018 Encounter Details Date Type Department Care Team (Late st Contact Info) Description 11/10/2018 Telephone [facility] Neurosurgery - [address] [address] Caleb Ahumada MD [address] [facility], [address] [place] [address] Appointment Related Social History Tobacco Use Types Packs/Day Years Used Date Smoking Tobacco: Never Assessed Sex and Gender Information Value Date Recorded Sex Assigned at Not on file Legal Sex Male 18:22 EST Gender Identity Male 06/01/2019 13:40 EST Sexual Orientation Not on file documented as of this encounter Miscellaneous Notes * Telephone Encounter - Lizz Adrian 11/10/2018 7335 EDT Referring office contacted with appointment details: [...] HISTORY: M48.061-Spinal stenosis, lumbar region without neurogenic [id number]; lumbar stenosis COMPARISON: Lumbar MRI outside hospital [...] is present. Procedure Note Carlos Copeland MD, MD - 11/24/2018 L SPINE 4 OR MORE VIEWS, CERVICAL SPINE 4 OR MORE VIEWS 11/22/2018 11:49 AM CLINICAL HISTORY: M48.061-Spinal stenosis, lumbar region without neurogenic [id number]; lumbar stenosis COMPARISON: Lumbar MRI outside hospital [...] tissues. Some atherosclerotic calcification is present. Zaynab Hernández PA-C IMG DIAGNOSTIC IMAGING O RDERABLES Final Result documented in this encounter Visit Diagnoses Diagnosis Spinal stenosis of lumbar region, unspecified whether neurogenic claudication present- Primary documented in this encounter Care Teams Histology Assistant Relationship Specialty Start Date End Date Garcia Gonzales MD [address] [place] [address] PCP - General 09/03/09 documented as of this encounter
--- OUTSIDE RECORDS SUMMARY | 2024-07-19 13:48 | XMS_ITS | Encounter Summary ---
Author Organization [facility] Address [address] [place] [address] Care Team Providers Care Canopy Inspector Name Role Phone Garcia Gonzales MD Primary Care Provider [phone] Encounter Details Date Type Department Care Team (Late st Contact Info) Description 11/08/[address] [facility] [phone] Unknown, Provider, MD Social History Tobacco Use Types Packs/Day Years [...] on filedocumented in this encounter Care Teams Canopy Inspector Relationship Specialty Start Date End Date Garcia Gonzales MD [address] [place] [address] PCP - General 09/03/09 documented as of this encounter
--- OUTSIDE RECORDS SUMMARY | 2024-07-19 13:48 | XMS_ITS | Encounter Summary ---
Author Organization [facility] Address [address] [place] [address] Care Team Providers Care Materials Engineer Name Role Phone Garcia Gonzales MD Primary Care Provider [phone] Reason for Visit * Reason Onset Date Comments Diagnostic Imaging Report 12/09/2018 MRI re sults Encounter Details Date Type Department Care Team (Late st Contact Info) Description 12/09/2018 Telephone [facility] Neurosurgery - [address] [address] Caleb Ahumada MD [address] [place] [address], [address] [place] [phone] Diagnostic Imaging Report (MRI results) Social History [...] Brigette Moser RN - 12/09/2018 1548 EDT 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 * Telephone Encounter - Cristy Winter - 12/09/2018 0803 EDT Patient had an MR Neuro yesterday at [facility]. Dr Romero office ([facility]) is faxing the results this AM. Dr Ahumada needs to look at the results soon Please get these reports to Dr Ahumada as soon as possible documented in this encounter Plan of Treatment Not on file documented as of this encounter Visit Diagnoses Not on filedocumented in this encounter Care Teams Materials Engineer Relationship Specialty Start Date End Date Garcia Gonzales MD [address] [place] [address] PCP - General 09/03/09 documented as of this encounter
--- OUTSIDE RECORDS SUMMARY | 2024-07-19 13:48 | XMS_ITS | Encounter Summary ---
Author Organization [facility] Address [address] [place] [address] Care Team Providers Care Stretch Box Tender Name Role Phone Garcia Gonzales MD Primary Care Provider [phone] Encounter Details Date Type Department Care Team (Late st Contact Info) Description 01/23/2005 Results Only [facility] - [facility] [address] [place] [address] Jasper Shelley, DO [address] [facility] [address] [place], [place] [phone] Social History Tobacco Use Types Packs/Day Years [...] when reading/interpreti ng unformatted reports. Name: ? MARANDA SINDY Ana Maria ? Accession #: ? [id number] ? : ? 1945 (Age: 59) ??M [...] ? Deeper sections have been examined. ??(Dr. Romero)/[facility] Document reviewed and electronically signed [...] specimen is entirely submitted as (B). ??(Young Vargas)/[facility] End of Report KAVITA DUBON 01/23/2005 01/23/2005 15: 22 EDT Jasper Shelley DO PATHOLOGY ORDERABLES Fi nal Result Performing Organization Address City/State/[facility] Co de Phone Number KAVITA DUBON [address] [place] [address] documented in this encounter Visit Diagnoses Not on filedocumented in this encounter Care Teams Stretch Box Tender Relationship Specialty Start Date End Date Garcia Gonzales MD [address] [place], [place] [id number] PCP - General 09/03/09 documented as of this encounter
--- OUTSIDE RECORDS SUMMARY | 2024-07-19 13:48 | XMS_ITS | Encounter Summary ---
Author Organization [facility] Address [address] [place] [address] Care Team Providers Care Petroleum Sampler Name Role Phone Garcia Gonzales MD Primary Care Provider [phone] Encounter Details Date Type Department Care Team (Late st Contact Info) Description 11/11/2018 Results Only [facility] [phone] Dat Lopez, DO [address] [address] [place], [place] [phone] Social History Tobacco Use Types Packs/Day Years [...] SAM Ana Maria ? Accession #: ? [id number] ? : ? 1945 (Age: 73) ??M [...] (ASCP) 11/11/2018 4:30 PM End of Report [facility] 11/11/2018 15:5 8 EDT 11/11/2018 15:58 EDT us Dat Lopez DO PATHOLOGY ORDERABLES Final Re sult [facility] [address] [place] [address] documented in this encounter Visit Diagnoses Not on filedocumented in this encounter Care Teams Petroleum Sampler Relationship Specialty Start Date End Date Garcia Gonzales MD [address] [place], [place] [phone] PCP - General 09/03/09 documented as of this encounter
--- OUTSIDE RECORDS SUMMARY | 2024-07-19 13:48 | XMS_ITS | Encounter Summary ---
Author Organization [facility] Address [address] [place] [address] Care Team Providers Care Underpresser Hand Name Role Phone Garcia Gonzales MD Primary Care Provider Encounter Details Date Type Department Care Team (Latest Contact Info) Description 06/03/2015 14:20 EST - 06/03/2015 23:59 EST Hospital Encounter [address] [address] Unknown, Provider, MD Discharge Disposition: Home or [...] on filedocumented in this encounter Care Teams Underpresser Hand Relationship Specialty Start Date End Date Garcia Gonzales MD [address] [place] [address] PCP - General 09/03/09 documented as of this encounter
--- OUTSIDE RECORDS SUMMARY | 2024-07-19 13:48 | XMS_ITS | Continuity of Care Document ---
Author Organization [place] - [facility], [facility] Address [address] [place] [address] Assessment No assessment recorded. Plan of Treatment Reminders Order Date Submit Date Provider Last Modified By Organization Details Last Modified Time Details Appointments Nurse Visit 2024 11:30A M [place] Nursing Staff Not available Not available Not available Annual Chronic Care (65+) 2024 02:10P M ANALISA CHAVARRIA Not available Not available Not available Lab AST/SGOT (asparta te aminotra nsferase ), serum or plasma - 1Y 2024 025 [facility] (Registration ), [address] [place] [address] [place], [address], 07/19/2024 12:14:24 ALT (alanine aminotra nsferase ), serum or plasma 2024 025 [facility] (Registration ), [address] [place] [address] [place], [address], 07/19/2024 12:14:24 Referral None recorded . Procedures None recorded . Surgeries None recorded . Imaging None recorded . Medication Orders None recorded . Patient TargetsNo targets recorded. Patient InstructionsNo instructions recorded. Reason for Referral None Reported. Problems Name Problem SNOMED Code Status Onset Date Resolution Date Notes Provider Name and Address Organization Details Recorded Time Divertic brody of intestin e 98676780 Active 2005 Problem Code: K57.90; Problem Code Type: ICD-10; MICHAEL JOHNSTON, [place] - [facility] 08:35:37 Hyperlip idemia 28364132 Active 200109/14/19 19 - Comments only - Faizan Serrano - - Well managed on atorvast atin. - Recent lipid panel revealed total choleste rol of 198, triglyce rides of 124, HDL of 53, and LDL of 118. - No changes made to medicati on today. - Continue current medical manageme nt with atorvast atin. - We will continue to monitor. 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 - Monitor for progress ion or function al impairme nt. - We will continue to monitor. Problem Code: I87.2; Problem Code Type: ICD-10; MD Margarita [address], [place], [address] , [facility] 4 22:46:08 Steatosi s of liver 062711543 Active 2008 Problem Code: K76.0; Problem Code Type: ICD-10; MD Margarita SIMMONS Dr, [facility] [address] , [facility] 4 22:03:35 History of polyp of colon 614186405 Active 2014 Problem Code: Z86.010; Problem Code Type: ICD-10; MD Margarita [address]MON[address] Dr, [facility] [address] , [facility] 4 22:44:32 Paroxysm al atrial fibrilla tion 359094638 Active 201509/14/19 19 - Comments only - Faizan Serrano - - Well managed on Eliquis. - No recent flare up/red flag symptoms includin g any severe bleeding disorder /complic ation. - No changes made to medicati on today. - Continue current medical manageme nt with Eliquis. - Advised on medicati on complian ce. - We will continue to monitor. Problem Code: I48.0; Problem Code Type: ICD-10; MD Margarita SIMMONS Dr, [facility] [address] , [facility] 4 22:45:59 Genitour inary symptoms 031126034 Completed 201505/29/2016 Problem Code: R39.89; Problem Code Type: ICD-10; Not Available [facility] 3 04:26:17 Residual hemorrho idal skin tags 27227469 Completed 201608/11/2023 Problem Code: K64.4; Problem Code Type: ICD-10; MD Margarita [address], [place], [address] , [facility] 4 22:44:26 Adult health examinat ion Active 201709/14/19 19 - Comments only - Faizan Serrano - - Not up-to-da te on tetanus vaccine. - Administ ered Tdap vaccine today in our clinic. - Advised to cut down on his alcohol consumpt ion. - In regards to his skin lesions, I explaine d to him that the lesions are benign age-rela bart process and not cancerou s. Problem Code: Z00.00; Problem Code Type: ICD-10; MD Margarita [address]MON[address], [place], [address] , [facility] 4 22:45:56 Cough 50151351 Completed 201909/04/2019 Problem Code: R05; Problem Code Type: ICD-10; Not Available [facility] 3 04:26:17 Blood in urine 47482262 Completed 202108/16/2021 Problem Code: R31.9; Problem Code Type: ICD-10; Not Available [facility] 3 04:26:17 Abdomina l pain 01913828 Completed 202108/16/2021 Problem Code: R10.9; Problem Code Type: ICD-10; Not Available [facility] 3 04:26:17 History of urinary stone 226004991 Active 2021 Problem Code: Z87.442; Problem Code Type: ICD-10; MD Margarita SIMMONS Dr, [facility] [address] , [facility] 22:43:09 Cough 09318813 Completed 202103/12/2022 Problem Code: R05.8; Problem Code Type: ICD-10; Not Available [facility] 3 04:26:18 Actinic keratosi s 111373543 Completed 202103/12/2022 Problem Code: L57.0; Problem Code Type: ICD-10; Not Available [facility] 3 04:26:18 Benign prostati c hyperpla santiago 026355343 Active 2022 Problem Code: N40.0; Problem Code Type: ICD-10; MD Margarita SIMMONS Dr, [facility] [address] , [facility] 4 22:46:18 Dyspnea 575550003 Completed 202208/11/2023 Problem Code: R06.09; Problem Code Type: ICD-10; MD Margarita SIMMONS Dr, [facility] [address] , [facility] 22:43:35 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 82792123283 9103 Completed 201708/13/2021 Problem Code: H04.123; Problem Code Type: ICD-10; Not Available [facility] 3 04:26:19 Hypogona dism 00478947 Completed 200103/24/2023 Not Available [facility] 3 04:26:19 General examinat ion of patient Completed 201412/04/2015 Problem Code: Z00.8; Problem Code Type: ICD-10; Not Available [facility] 3 04:26:19 History of urinary disease 152746105 Completed 201502/10/2021 Problem Code: Z87.448; Problem Code Type: ICD-10; Not Available [facility] 3 04:26:19 Cholelit hiasis without obstruct ion 97792343 Completed 202108/12/2022 Problem Code: K80.20; Problem Code Type: ICD-10; Not Available [facility] 3 04:26:19 Spinal stenosis of lumbar region 80833071 Completed 201401/03/2016 Not Available [facility] 3 04:26:19 Lumbosac ral radiculo katelynn 6219197 Completed 201402/02/2020 Problem Code: M54.16; Problem Code Type: ICD-10; Not Available [facility] 3 04:26:19 Hypertro phic conditio n of skin 58279886 Completed 201902/10/2021 Problem Code: L91.8; Problem Code Type: ICD-10; Not Available [facility] 3 04:26:20 Age related macular degenera tion 870379439 Completed 200103/24/2023 Problem Code: 362.50; Problem Code Type: ICD-9; Not Available [facility] 3 04:26:20 Spasm 72064497 Completed 201502/10/2021 Problem Code: R25.2; Problem Code Type: ICD-10; Not Available [facility] 3 04:26:20 Smearing of feces 468439077 Completed 201702/02/2020 Problem Code: R15.1; Problem Code Type: ICD-10; Not Available [facility] 3 04:26:20 Nausea and vomiting 72143425 Completed 202108/30/2021 Problem Code: R11.2; Problem Code Type: ICD-10; Not Available [facility] 3 04:26:20 Spinal stenosis in cervical region 89982503 Completed 201808/13/2021 Problem Code: M48.02; Problem Code Type: ICD-10; Not Available [facility] 3 04:26:20 Abdomina l pain 49155298 Completed 201911/20/2019 Problem Code: R10.9; Problem Code Type: ICD-10; Not Available [facility] 3 04:26:21 Divertic ulosis of large intestin e 467955753 Completed 202108/12/2022 Problem Code: K57.30; Problem Code Type: ICD-10; Not Available [facility] 3 04:26:21 Acute sinusiti s 77931159 Completed 201512/04/2015 Problem Code: J01.90; Problem Code Type: ICD-10; Not Available [facility] 3 04:26:21 Pre-surg hussein evaluati on Completed 201806/06/2019 Problem Code: Z01.818; Problem Code Type: ICD-10; Not Available [facility] 3 04:26:21 Chronic nonalcoh olic liver disease 51344296 Completed 200803/24/2023 Problem Code: 571.8; Problem Code Type: ICD-9; Not Available [facility] 3 04:26:21 Cellulit is of left lower limb 53859105468 288887 Completed 202109/10/2021 Problem Code: L03.116; Problem Code Type: ICD-10; Not Available [facility] 3 04:26:22 Fatigue 93342854 Completed 201506/06/2019 Problem Code: R53.83; Problem Code Type: ICD-10; Not Available [facility] 3 04:26:22 Anemia due to chronic blood loss 525546059 Completed 201802/02/2020 Problem Code: D50.0; Problem Code Type: ICD-10; Not Available [facility] 3 04:26:22 Benign neoplasm of colon 46189569 Completed 201403/24/2023 09/14/19 19 - Comments only - Faizan Serrano - - Not up-to-da te on colonosc opy. - Provided a referral to see Dr. Jones, [facility], to get his colonosc opy done. - Further treatmen t plan pending colonosc opy result. Problem Code: D12.6; Problem Code Type: ICD-10; Not Available [facility] 3 04:26:22 Senile hyperker atosis 578015089 Completed 201508/12/2022 Problem Code: L82.1; Problem Code Type: ICD-10; Not Available [facility] 3 04:26:22 Dizzines s and giddines s 691976692 Completed 202008/13/2021 Problem Code: R42; Problem Code Type: ICD-10; Not Available [facility] 3 04:26:22 Spinal stenosis of lumbar region 79575013 Completed 201802/02/2020 Problem Code: M48.062; Problem Code Type: ICD-10; Not Available [facility] 3 04:26:23 Rupture of rotator cuff of right shoulder 31137479623 566016 Completed 200202/09/2022 Problem Code: M75.101; Problem Code Type: ICD-10; Not Available [facility] 3 04:26:23 Elevated blood-pr essure reading without diagnosi s of hyperten jose 516301165 Completed 202008/13/2021 Problem Code: R03.0; Problem Code Type: ICD-10; Not Available [facility] 3 04:26:23 Cough 80173450 Completed 201506/11/2016 Problem Code: R05; Problem Code Type: ICD-10; Not Available [facility] 3 04:26:23 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 41733611 Completed 200206/06/2019 Problem Code: 722.0; Problem Code Type: ICD-9; Not Available [facility] 3 04:26:23 Benign neoplasm of colon 49733600 Completed 199806/20/2015 Problem Code: 211.3; Problem Code Type: ICD-9; Not Available [facility] 3 04:26:24 Right lower quadrant pain 278703302 Completed 201901/02/2020 Problem Code: R10.31; Problem Code Type: ICD-10; Not Available [facility] 3 04:26:24 Exposure to sting or bite by insect Completed 202102/09/2022 Not Available [facility] 3 04:26:24 [facility] emia 1997499 Completed 201902/02/2020 Problem Code: E83.51; Problem Code Type: ICD-10; Not Available [facility] 3 04:26:24 Dizzines s and giddines s 359280492 Completed 201902/10/2021 Problem Code: R42; Problem Code Type: ICD-10; Not Available [facility] 3 04:26:24 Mitesh hematuri a 440253773 Completed 201911/20/2019 Problem Code: R31.0; Problem Code Type: ICD-10; Not Available [facility] 3 04:26:25 Spinal stenosis of lumbar region 19419891 Completed 201408/13/2021 Problem Code: M48.06; Problem Code Type: ICD-10; Not Available [facility] 3 04:26:25 Cataract 573888650 Completed 201402/02/2020 Problem Code: H26.9; Problem Code Type: ICD-10; Not Available [facility] 3 04:26:25 Joint pain 67033558 Completed 201412/04/2015 Problem Code: M25.50; Problem Code Type: ICD-10; Not Available [facility] 3 04:26:26 Disorder of bursa of shoulder region 90572870 Completed 200203/24/2023 Problem Code: 726.10; Problem Code Type: ICD-9; Not Available [facility] 3 04:26:26 Osteoart hritis 590225312 Completed 200102/02/2020 Thumbs, left shoulder ANALISA CHAVARRIA MD [address], [place], [address] , [facility]. 4 14:46:55 Disorder of nasal sinus 2345825 Completed 201706/06/2019 Not Available [facility] 3 04:26:26 Visual impairme nt 792822199 Completed 200102/10/2021 Problem Code: H54.7; Problem Code Type: ICD-10; Not Available [facility] 3 04:26:26 Arthriti s of left knee 51396852196 64537 Completed 201508/13/2021 Problem Code: M13.862; Problem Code Type: ICD-10; Not Available [facility] 3 04:26:27 Arthriti s 0353500 Completed 200103/24/2023 Not Available [facility] 3 04:26:27 Hypo-osm olality and or hyponatr emia 561458479 Completed 201801/02/2020 Problem Code: E87.1; Problem Code Type: ICD-10; Not Available [facility] 3 04:26:27 Abdomina l pain 60747360 Completed 202008/13/2021 Problem Code: R10.9; Problem Code Type: ICD-10; Not Available [facility] 3 04:26:28 Cellulit is of left upper limb 47035350223 090705 Completed 201902/02/2020 Problem Code: L03.114; Problem Code Type: ICD-10; Not Available [facility] 3 04:26:28 Divertic ular disease 762931916 Completed 200503/24/2023 Not Available [facility] 3 04:26:28 Cough 17843060 Completed 202205/30/2023 Problem Code: R05.8; Problem Code Type: ICD-10; Not Available [facility] 4 05:37:54 Dependen t edema 535640902 Active [address], [facility] [address] , [facility] 4 22:44:14 Renal mass 818811726 Active 2023 L, followed by urol MD Margarita [address], [place] [address] , [facility] 4 22:44:58 Dry eyes 895182886 Active [address], [address] 4 22:45:15 Osteoart hritis 185899888 Active [address], [place] [address] , [facility] 4 14:46:54 Closed fracture of fourth thoracic vertebra 04599198669 557249 Active [address], [place] [address] , [facility] 4 23:52:22 Low back pain 347797767 Active 2023 JESÚS MOISE CMA null, [facility] 4 16:38:47 Syncope 334464728 Active 2023 JESÚS MOISE CMA null, [facility] 4 16:38:56 Mild intermit tent asthma 554649490 Active [address], [facility] [address] , [facility] 4 22:03:24 Onychomy cosis 878141652 Active [address], [facility] [address] , [facility] 4 22:03:27 Problem Notes None recorded. Medical Equipment None Reported. Allergies Allergen ID Allergen Name Allergen Category Reaction Reaction Severity Criticality Documentation Date Start Date Code Code System Note Provider Name and Address Organization Details Recorded Time 98733 cephalexi n monohydra te medicatio n nausea moderate Not available 05/07/20232021 16897 8 RxNorm nause a, vomit ing Aller gyRea ction : 'naus ea, vomit ing'; Not Available [facility] 3 16:25:55 67604 hydrocodo ne Not available confusion Not available high 01/27/2024 5489 RxNorm psych osis MICHAEL JOHNSTON, [facility] 4 15:12:26 72805 methocarb cal medicatio n anaphylax is severe high 01/27/2024 6845 RxNorm MICHAEL JOHNSTON, [facility] 4 15:12:52 88962 tramadol medicatio n hives moderate high 01/27/2024 21917 RxNorm MICHAEL JOHNSTON, [facility] 4 15:13:24 97427 Non-stero idal anti-infl ammatory agent (product) medicatio n hives severe high 01/27/2024 78118 005 SNOMED MICHAEL JOHNSTON, [facility] 4 15:13:48 Medications Name Sig Start Date [...] Not Available Not Available No t Available terbinafi ne HCl 250 mg tablet TAKE ONE TABLET BY MOUTH [...] active Not Available Not Available Not Avai labjuventino Vitals Date Recorded Body height Systolic blood pressure Diastolic blood pressure Provider Name and Address Organization Details Last Updated DateTime 07/19/2024 173.99 cm 110 mm[Hg] 70 mm[Hg] SURINDER REES CMA [facility] 07/19/2024 11:36:50 Social History Question Answer Notes LastModified by Organizat ion Details LastModified Time Tobacco Smoking Status Former Smoker YOLANDA GRIJALVA MA null, [facility] 08/12/2023 10:50:44 When Did You Quit Smoking? 16+yearssinc elastcigaret te Information not available 08/12/2023 Date Of Most Recent SBINS 08/12/2023 Information not available 08/12/2023 What Was The Date Of Your Most Recent Tobacco Screening? 08/12/2023 Information not available 08/12/2023 Sex: Male Functional Status None recorded. Mental Status None recorded. Family History Relationship Description Onset Age of this Age Resolved Age Notes LastModified by Organization Details LastModified Time Mother Family history of malignant neoplasm [email or web address] Not available 2022 04:00:45 Sister Family history of diabetes mellitus type 1 [email or web address] Not available 2022 04:00:45 Notes:*Problem: Mother: dece ased age 60's cause bone cancer Father: , mild dementia Sisters: 2 sisters, Alzheimers at age 65, DM Brothers: 1 brother Children: 2 children- 36,34 Family History of: Diabetes: sister Cancer: bone ca mother Other: no colon or prostate CA, no melanoma Paternal aunt pancreatic cancer Medical History No medical history recorded. Immunizations Vaccine Type Date Status Note Provider Nam e and Address Organization Details Recorded Time Pneumococcal conjugate PCV20, polysaccharide MMR692 conjugate, adjuvant, PF 4 completed ANALISA CHAVARRIA MD [address], [place], [address], [facility] 02/08/2024 22:02:07 Td (adult), 5 Lf tetanus toxoid, preservative free, adsorbed 9 completed Not Available [facility] 05/07/2023 05:38:43 Tdap 9 completed Not Available [facility] 05/07/2023 05:38:44 Tdap 7 completed Not Available [facility] 05/07/2023 05:38:44 zoster live 1 completed Not Available [facility] 05/07/2023 05:38:44 Pneumococcal conjugate PCV 13 5 completed Not Available [facility] 05/07/2023 05:38:44 Influenza, high-dose, trivalent, PF 8 completed Not Available [facility] 05/07/2023 05:38:44 Influenza, split virus, trivalent, preservative 5 completed Not Available [facility] 05/07/2023 05:38:44 Influenza, split virus, trivalent, preservative 6 completed Not Available [facility] 05/07/2023 05:38:44 Influenza, split virus, quadrivalent, preservative 7 completed Not Available [facility] 05/07/2023 05:38:44 Influenza, MDCK, quadrivalent, PF 9 completed Not Available [facility] 05/07/2023 05:38:45 zoster recombinant 1 completed Not Available [facility] 05/07/2023 05:38:45 zoster recombinant 1 completed Not Available [facility] 05/07/2023 05:38:45 Influenza, high-dose, quadrivalent, PF 2 completed Not Available [facility] 05/07/2023 05:38:45 Influenza, high-dose, quadrivalent, PF 0 completed Not Available [facility] 05/07/2023 05:38:45 COVID-19, mRNA, LNP-S, PF, 100 mcg/0.5mL dose or 50 mcg/0.25mL dose 1 completed Not Available [facility] 05/07/2023 05:38:45 COVID-19, mRNA, LNP-S, PF, 100 mcg/0.5mL dose or 50 mcg/0.25mL dose 1 completed Not Available [facility] 05/07/2023 05:38:45 COVID-19, mRNA, LNP-S, PF, 100 mcg/0.5mL dose or 50 mcg/0.25mL dose 2 completed Not Available [facility] 05/07/2023 05:38:45 COVID-19, mRNA, LNP-S, PF, 100 mcg/0.5mL dose or 50 mcg/0.25mL dose 1 completed Not Available [facility] 05/07/2023 05:38:45 varicella 1 completed Not Available [facility] 05/07/2023 05:38:45 SARS-COV-2 (COVID-19) vaccine, UNSPECIFIED 2 completed Not Available [facility] 05/07/2023 05:38:45 pneumococcal polysaccharide PPV23 1 completed Not Available [facility] 05/07/2023 05:38:46 influenza, unspecified formulation 1 completed Not Available [facility] 05/07/2023 05:38:46 influenza, unspecified formulation 3 completed Not Available [facility] 07/09/2023 05:33:24 SARS-COV-2 (COVID-19) vaccine, UNSPECIFIED 3 completed MICHAEL JOHNSTON, [place] [facility]. 08/12/2023 08:38:03 Past Encounters Encounter ID Performer Location Encounter Start Date Encounter Closed Date Diagnosis/Indication Diagnosis SNOMED-CT Code Diagnosis ICD10 Code Diagnosis Note [id number] SURINDER REES [address] [address] 07/19/2024 11:26:33 07/19/2024 11:39:02 Steatosis of liver [id number] K76.0 Health Concerns Section Related Observation LastModified by Organization Detai ls LastModified Time None Recorded Concern Status LastModified by Organization Details LastModified Time None Recorded Payers Encounter Date Sequence Insurance Name Policy Number Policy Leong Covered Member ID Leong Member ID Guarantor Name 07/19/2024 1 [place]ARE [place] [employer] Nakul Sam [id number] Nakul Sam 07/19/2024 2 [employer] Nakul Sam [id number] Nakul Sam
--- OUTSIDE RECORDS SUMMARY | 2024-07-19 13:48 | XMS_ITS | Encounter Summary ---
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 Role Phone Garcia Hugo MD Primary Care Provider [phone] Reason for Referral * Radiology Services (Routine) - Receiving Office to Obtain Authorization Specialty Diagnoses / Procedures Referred By Contac t Referred To Contact Diagnoses Cervical spondylosis with myelopathy Procedures ENTIRE SPINE 2-3 VIEWS Murray Gomes MD [address] [place] [address] Phone: tel: fax: Referral ID Status Reason Start Date Expiration Date Visits Requested Visits Authorized [id number] Receiving Office to Obtain Authorization 01/20/2019 1 1 * Consult (Routine) - Closed Specialty Diagnoses / Procedures Referred By Contac t Referred To Contact Neurosurgery Diagnoses Cervical spondylosis with radiculopathy Murray Gomes MD [address] [place] [address] Phone: tel: fax: Caleb Ahumada MD Phone: tel: fax: Referral ID Status Reason Start Date Expiration Date V isits Requested Visits Authorized [id number] Closed Specialty Services Required 01/20/2019 1 1 [...] Cervical spondylosis with myelopathy Murray Gomes MD [address] [place] [address] Phone: tel: fax: - [facility] & [address] [address] Phone: tel: fax: Referral ID Status Reason Start Date Expiration Date Visits Requested Visits Authorized [id number] New Request Specialty Services Required 01/20/2019 1 1 Question Answer I certify that this patient is under my care and that I, or another Medicare allowed practitioner (DO TYLOR, LAW) working with me, had a okrh-gv-bbyg encounter with this patient on this date: 01/20/2019 I further certify that the teft-bq-zggf encounter was in whole or in part [...] EDT - 01/20/2019 16:26 EDT Hospital Encounter [facility] [address] [place] [address] Caleb Ahumada MD [address] [facility], [address] [place] [address] Cervical spondylosis with myelopathy; Cervical [...] Assessment Author No 01/19/2019 1:00 EDT Brooklyn Calabrese RN * Are you blind or do [...] Date of Assessment Author No 01/19/2019 1:00 SHARAT Brooklyn Calabrese RN * Because of a physical, mental, or emotional condition, do you have difficulty doing errands alone such as visiting a doctor's office or shopping? 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 (--) [address] [place] [id number] Follow-up appointments and procedures Amb Consult/Follow Up [...] another Medicare authorized non-physician practitioner (PA or PRECISION MACHINIST) or resident working with me, had a vadr-km-bdjl encounter with this patient on this date: 01/20/2019 I further certify that the ugmv-ex-nsus encounter was in whole or in part related to the reason thepatient needs home health care.: Yes The patient has had a tarn-fx-vkyv visit by me or one of my [...] MD Luke Antonio Silveira, MD 01/29/2019 0:02 Cosigned by Robi Ahumada MD, MD at 01/31/2019 18:12 EDT documented in this encounter Discharge Instructions * [...] daily. 05/09/2019 documented as of this encounter Ordered Prescriptions Prescription Sig Dispense Quantity Refills Last Filled Start Date End Date docusate sodium (COLACE) 100 mg capsule Take 1 Cap by mouth 2 times daily. 01/20/2019 calcium carbonate (TUMS) 200 mg calcium (500 mg) tablet,chewable Take 1 Tab by mouth every 4 hours as needed for Heartburn. 01/20/2019 oxyCODONE (ROXICODONE) 5 mg immediate release tablet Take 1 Tab by mouth every 4 hours as needed for Pain (discomfort) . Daily Max: 30 mg 20 Tab 01/20/2019 05/08/2019 Multivitamins with Minerals tablet tablet Take 1 Tab by mouth daily. 01/21/2019 05/08/2019 methocarbamol (ROBAXIN) 500 mg tablet Take 2 Tabs by mouth every 8 hours as needed for Muscle Spasms. 20 Tab 01/20/2019 01/23/2019 documented in this encounter Discharge Disposition Disposition Code Departure Means Destination Home-Health Care [facility] documented in this encounter Progress Notes * [...] (C5, 6) 5/5 Tricep (C6, 7) 5/5 Teleprinter Installer (C8) 5/5 Interrosei (T1) 5/5 UE Strength - RIGHT Deltoid (C5) 5/5 Bicep (C5, 6) 5/5 Tricep (C6, 7) 5/5 Teleprinter Installer (C8) 5/5 Interrosei (T1) 5/5 Full strength and normal sensation in the bilateral lower extremities Dressing clean and dry Assessment/ 73 year old man status post C4-C6 lateral mass screws, T1-T2 pedicle screws, C7- T2 posterior decompression. Exam stable, pain well controlled. Plan/ Q4H neuro checks Maintain Northway J collar Regular diet DC drain AAT/OOB Pain control Dispo planning, PT/OT Good Small MD Neurosurgery resident 01/20/2019 10:34 Page 4028 with questions * NamitaNavya, PT - 01/20/2019 0956 EDT [facility] Rehabilitation Therapy [facility] [place] [facility] Initial Evaluation/Discontinue Note Date of [...] with radiculopathy, cervical region-M47.22[ICD-10-CM] The patient lives [id number] [facility] [address] Home environment Lives: with family Caregiver Support: 24-hour assist Equipment Available: Rolling walker Home Environment: house Home Layout: One story. 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 Tip intact. No complications. Murray Gomes MD Neurosurgery Resident 01/20/2019 9:51 Neurosurgery Service Pager [phone] * Daily Alexandre, OT - 01/20/2019 0816 EDT [facility] Rehabilitation Therapy Acute Therapies [facility] Occupational Therapy Initial/Discontinue Evaluation Note Date of Service: 01/20/2019 Reason for Referral: Evaluate and treat Precautions: Northway J and Wear at all times except [...] with radiculopathy, cervical region-M47.22[ICD-10-CM] The patient lives [address] [address] History of Present Illness/Injury: Pt admitted for [...] medically ready from an OT perspective No HH OT recommended at this time GOALS: Short Term Goals: n/a ?? Assisted Goals: Set and met Pt will use long handled equipment for lower body dressing Pt will demonstrate ability to don shirt with min contact A of 1 Pt will verbalize understanding of spinal precautions and impact on adls PLAN: Intervention: Discontinue occupational therapy at [facility] acute care. Further Data: none Patient/Family Education: Adapted ADLs Recommended Discharge Destination: Home with family Recommended Discharge Services: No occupational therapy follow-up services at this time Recommended Discharge Equipment: Shower chair and Sock-aide Pager: [phone] Daily Alexandre OT, 01/20/2019, 8:16 * Cristy Jordan - 01/19/2019 1447 EDT Spoke with pt re: Advanced Directive and his code status. He DOES wish to be full code. His spouse is HCP and she understands pt doesn't want to be senior living on machines. No changes in his AD. LAUREL AgrawalCCM #[id number] * Cristy Jordan - 01/19/2019 1410 EDT [...] Chart: Yes, previous copy on file @ [facility] DIRECTIVES FOR FINANCES: TRANSPORTATION: Transportation: Family, Self CULTURAL, CONGREGATIONAL and/or LANGUAGE factors affecting health care/discharge planning: [...] Home Health Services: None DME Provider: Pharmacy: [id number] - [address] [address] Home Health: Other: POST HOSPITAL TRANSITION PLAN: Pt will be going to his spouses home at [address] [place] [address]. SHe will provide care and he would [...] (C5, 6) 5/5 Tricep (C6, 7) 5/5 Teleprinter Installer (C8) 5/5 Interrosei (T1) 5/5 Ext. Carpi Radialis (C6) 5/5 Wrist flexor (C7) 5/5 UE Strength - RIGHT Deltoid (C5) 5/5 Bicep (C5, 6) 5/5 Tricep (C6, 7) 5/5 Teleprinter Installer (C8) 5/5 Interrosei (T1) 5/5 Ext. Carpi Radialis (C6) 5/5 Wrist flexor (C7) 5/5 Persist Full strength and normal sensation in the bilateral lower extremities Incision clean/dry/intact Assessment/ 73 year old man status post C4-C6 lateral mass screws, T1-T2 pedicle screws, C7- T2 posterior decompression doing well post-operatively with improvement in pain and numbness. Plan/ Q4H neuro checks Maintain Northway J collar Regular diet DC hwang Transition from FURRIER DESIGNER to oral pain meds Monitor and record drain output AAT/OOB Pain control Upright Xrays when able Murray Gomes MD Neurosurgery resident 01/19/2019 11:02 Page 2712 with questions Cosigned by Robi Ahumada MD, at 01/19/2019 17:08 EDT Associated attestation - Caleb Ahumada MD - 01/19/2019 1708 EDT Neurosurgery Staff Patient seen and independently examined. I have reviewed history, pertinent exam findings, and relevant imaging with the resident and agree with the resident note, with the following additions/amendments: Doing well. Pain controlled. Mobilize. XR. DC drain tomorrow. Shashi Ahumada MD Neurosurgery * Murray Gomes MD - 01/18/2019 1623 EDT Neurosurgery Post Procedure Note Problems/ Cervical [...] (C5, 6) 5/5 Tricep (C6, 7) 5/5 Teleprinter Installer (C8) 5/5 Interrosei (T1) 5/5 Ext. Carpi Radialis (C6) 5/5 Wrist flexor (C7) 5/5 UE Strength - RIGHT Deltoid (C5) 5/5 Bicep (C5, 6) 5/5 Tricep (C6, 7) 5/5 Teleprinter Installer (C8) 5/5 Interrosei (T1) 5/5 Ext. Carpi [...] Admit to floor Q4H neuro checks Maintain Northway J collar Regular diet Monitor and record drain output AAT/OOB Pain control Murray Gomes MD Neurosurgery resident 01/18/2019 16:23 Page 6517 with questions * Good Small MD - 01/18/2019 1356 EDT BRIEF OP NOTE PRE-OP DIAGNOSIS = Cervical myelopathy POST-OP DIAGNOSIS = Same as above PROCEDURE = C4-C6 lateral mass screws, T1-T2 pedicle screws, C7-T2 posterior decompression SURGEON = Rios Ahumada MD BEREAVEMENT COUNSELOR = Good Small MD; Ed Lopez MS4 ANESTHESIA = GETA COMPLICATIONS = None FINDINGS = Soft bone, fusion mass observed, ligamentous stenosis EBL = 400 cc IVF = See anesthesia record UOP = See anesthesia record SPECIMENS/CULTURES = None DRAINS = CAMPBELL drain SKIN = Summers DISPO = PACU then admission Good Small MD Neurosurgery resident 01/18/2019 14:01 Page 6591 with questions * Gladys Alvarado RN - [...] 2 times daily. 01/15/19 per Christian and :Laneyllginette atorvastatin (LIPITOR) 10 mg tablet Take 10 [...] Notes * Kirk Martinez MD - 01/18/2019 0725 EDT The preoperative history and physical which was performed within 30 days of this procedure has been reviewed and the clinically appropriate elements of the physical examination have been repeated. There are no changes to the documented history and physical or if so such changes are documented below Kirk Martinez MD 01/18/2019 7:26 Cosigned by Robi Ahumada MD, MD at 01/19/2019 13:43 EDT Source Note - CLOTH BALER, SCAN 2 - 01/05/2019 16:48 EDT documented in this encounter OR Notes * OR Surgeon - Robi Ahumada MD, MD - 01/18/2019 0000 EDT OPERATIVE REPORT SERVICE DATE: 01/18/2019 PROCEDURE: 1. C4-T2 posterior instrumented fusion. 2. Inspection of arthrodesis, C4-C7. 3. Spinal image guidance. 4. Laminectomy C7-T2. 5. Synovial cyst resection, left C7-T1. SURGEON: Robi Ahumada MD BEREAVEMENT COUNSELOR: Good Small MD ANESTHESIA: General. PREOPERATIVE DIAGNOSIS: [...] operated. Intraoperative x-ray confirmed correct level. A [employer] reference array was placed on the T2 spinous process. The O-arm was brought in the field,and the high resolution cone beam CT obtained. I then broke scrub and performed surgical planning for the T1 and T2 screws on the [employer] workstation. I then rescrubbed and reentered the field and confirmed a satisfactory registration. We placed pedicle screws as follows: A pilot teacher hole was drilled on the right and [...] lateral mass onthe right side, a pilot teacher hole was drilled and a 14 mm [...] no drains retained. S Rios Ahumada MD 01 52 PM / S Rios Ahumada MD nn Confirmation: [id number] Dictation ID: [id number] documented in this encounter Miscellaneous Notes * [...] and reviewed. Report called to Awa at [facility]. Response: Pt verbalized understanding and demonstrated [...] pt s/p laminectomy. Resting comfortably in bed. FURRIER DESIGNER available, pt is not utilizing Action: medicate per MAR, assist with repositioning Response: pt resting comfortably, no acute distress BROOKLYN CALABRESE, LAUREL 01/19/2019 2:20 Problem: High Fall Risk: Goal: Patient will Remain Free of Falls due to Altered Elimination Outcome: Ongoing Problem: High Fall Risk: Goal: Patient will Remain Free of Falls due to Altered Mobility Outcome: Ongoing * Plan of Care - Good Reardon RN - 01/18/2019 1900 EDT Problem: Daily Care Plan Goals Goal: Care Plan Documentation Outcome: Ongoing 01/18/19 181 Care Plan Focus Area of Focus Education Goal This Shift orient to room and unit Data: Pt arrived from PACU to [place] [id number] @ 1820 s/p C7-T2 Laminectomy and fusion [...] - Todd Faulkner MD, MD - 01/18/2019 1849 EDT Anesthesia Post op Note Nakul Sam [id number] Anesthesia received: General; Vital Signs: Temp: 36.7 [...] Clinical History/Comments: M47.12-Other spondylosis with myelopathy, cervical [id number]; sp C4-C6 lateral mass screws, T1-T2 pedicle [...] Clinical History/Comments: M47.12-Other spondylosis with myelopathy, cervical [id number]; sp C4-C6 lateral mass screws, T1-T2 pedicle [...] mild positive sagittal balance. Murray Gomes MD [facility] DIAGNOSTIC IMAGING ORDERABLES Final Result * (ABNORMAL) COMPLETE BLOOD COUNT AND DIFFERENTIAL (01/20/2019 6:17 EDT) WBC 8.67 4.0 - 10.4 K/cmm 01/20/2019 6:45 [facility] RBC 3.42(L) 4.36 - 5.78 M/cmm 01/20/2019 6:45 [facility] Hemoglobin 10.9(L) 13.8 - 17.3 gm/dl 01/20/2019 6:45 [facility] HCT 31.7(L) 39.5 - 50.2 % 01/20/2019 6:45 [facility] MCV 93 81 - 95 fl 01/20/2019 6:45 [facility] MCH 31.9 27.6 - 33.0 pg 01/20/2019 6:45 [facility] MCHC 34.4 32.8 - 36.4 gm/dl 01/20/2019 6:45 [facility] RDW-CV 12.7 <14.2 % 01/20/2019 6:45 [facility] RDW-SD 43.4 <46.0 fl 01/20/2019 6:45 [facility] PLT 130(L) 141 - 377 K/cmm 01/20/2019 6:45 [facility] MPV 11.0 9.5 - 12.7 fl 01/20/2019 6:45 [facility] % Neutrophils 64.3 % 01/20/2019 6:45 [facility] % Lymphocytes 25.1 % 01/20/2019 6:45 [facility] % Monocytes 9.8 % 01/20/2019 6:45 [facility] % Eosinophils 0.3 % 01/20/2019 6:45 [facility] % Basophils 0.2 % 01/20/2019 6:45 [facility] % Immature Grans 0.3 % 01/20/2019 6:45 [facility] ABS Neutrophils 5.56 2.20 - 8.85 K/cmm 01/20/2019 6:45 EDT [facility] ABS Lymphs 2.18 1.09 - 3.30 K/cmm 01/20/2019 6:45 EDT [facility] ABS Monocytes 0.85(H) 0.1 - 0.8 K/cm 01/20/2019 6:45 T [facility] ABS Eosinophils 0.03 0.03 - 0.61 K/cm 01/20/2019 6:45 EDT [facility] ABS Basophils 0.02 0.01 - 0.11 K/cm 01/20/2019 6:45 T [facility] ABS Immature Grans 0.03 0 - 0.06 K/[facility] 01/20/2019 6:45 T [facility] Type of Diff: Automated 01/20/2019 6:45 [facility] Blood specimen (specimen) BLOOD SPECIMEN / Unknown 01/20/2019 6:17 EDT 01/20/2019 6:34 EDT us Good Small MD PACKAGES & DNA PROBE ORDERA BLES Final Result Performing Organization Address [facility] Co de Phone Number [facility] [address] [place] [address] * (ABNORMAL) CREATININE (01/20/2019 6:17 EDT) Creatinine 0.63(L) 0.66 - 1.25 mg/dl 01/20/2019 7:02 EDT [facility] GFR, Calculated 96 >60 ml/min/1.7 3m2 01/20/2019 7:02 T [facility] Comment: eGFR calculated using CKD-EPI equation for non Americans. Multiply eGFR by 1.16 for Americans. Blood specimen (specimen) BLOOD SPECIMEN / Unknown 01/20/2019 6:17 EDT 01/20/2019 6:34 EDT us Good Small MD CHEMISTRY & BLOOD GAS ORDER KAYLIE Final Result [facility] [address] [place] [address] * BUN (01/20/2019 6:17 EDT) BUN 10 10 - 26 mg/dl 01/20/2019 7:02 EDT [facility] Blood specimen (specimen) BLOOD SPECIMEN / Unknown 01/20/2019 6:17 EDT 01/20/2019 6:34 EDT us Good Small MD CHEMISTRY & BLOOD GAS ORDER KAYLIE Final Result Performing Organization Address [facility] de Phone Number [facility] [address] [place] [address] * ELECTROLYTES (01/20/2019 6:17 EDT) Sodium 139 136 - 145 mEq/L 01/20/2019 7:02 EDT [facility] Potassium 3.7 3.5 - 5.0 mEq/L 01/20/2019 7:02 EDT [facility] Chloride 106 96 - 110 mEq/L 01/20/2019 7:02 EDT [facility] CO2 27 22 - 32 mEq/L 01/20/2019 7:02 EDT [facility] Blood specimen (specimen) BLOOD SPECIMEN / Unknown 01/20/2019 6:17 EDT 01/20/2019 6:34 EDT us Good Small MD CHEMISTRY & BLOOD GAS ORDER KAYLIE Final Result Performing Organization Address [facility] de Phone Number [facility] [address] [place] [address] * CERVICAL SPINE 2-3 VIEWS (01/19/2019 13:29 [...] the findings. Procedure Note Rell Jennings MD, MD - 01/19/2019 CERVICAL SPINE 2-3 VIEWS 01/19/2019 [...] tissue swelling. There are multiple posterior surgical akthrine overlying the cervical spine. IMPRESSION: 1. Unchanged cervical spine alignment with weightbearing compared to preoperative images 2. Multilevel degenerative changes, status post fusion. I have personally reviewed the images and the above interpretation and agree with the findings. us Katja Marroquin MD [facility] DIAGNOSTIC IMAGING ORDERA BLES Final Result * (ABNORMAL) COMPLETE BLOOD COUNT AND DIFFERENTIAL (01/19/2019 4:39 EDT) WBC 10.11 4.0 - 10.4 K/cmm 01/19/2019 4:48 [facility] RBC 3.73(L) 4.36 - 5.78 M/cmm 01/19/2019 4:48 [facility] Hemoglobin 11.8(L) 13.8 - 17.3 gm/dl 01/19/2019 4:48 [facility] HCT 34.4(L) 39.5 - 50.2 % 01/19/2019 4:48 [facility] MCV 92 81 - 95 fl 01/19/2019 4:48 [facility] MCH 31.6 27.6 - 33.0 pg 01/19/2019 4:48 [facility] MCHC 34.3 32.8 - 36.4 gm/dl 01/19/2019 4:48 [facility] RDW-CV 12.4 <14.2 % 01/19/2019 4:48 [facility] RDW-SD 42.4 <46.0 fl 01/19/2019 4:48 [facility] PLT 140(L) 141 - 377 K/cmm 01/19/2019 4:48 [facility] MPV 10.7 9.5 - 12.7 fl 01/19/2019 4:48 [facility] % Neutrophils 77.6 % 01/19/2019 4:48 [facility] % Lymphocytes 12.4 % 01/19/2019 4:48 [facility] % Monocytes 9.5 % 01/19/2019 4:48 [facility] % Eosinophils 0.0 % 01/19/2019 4:48 [facility] % Basophils 0.1 % 01/19/2019 4:48 [facility] % Immature Grans 0.4 % 01/19/2019 4:48 [facility] ABS Neutrophils 7.85 2.20 - 8.85 K/cmm 01/19/2019 4:48 [facility] ABS Lymphs 1.25 1.09 - 3.30 K/cmm 01/19/2019 4:48 EDT [facility] ABS Monocytes 0.96(H) 0.1 - 0.8 K/cmm 01/19/2019 4:48 EDT [facility] ABS Eosinophils 0.00(L) 0.03 - 0.61 K/cmm 01/19/2019 4:48 EDT [facility] ABS Basophils 0.01 0.01 - 0.11 K/cmm 01/19/2019 4:48 EDT [facility] ABS Immature Grans 0.04 0 - 0.06 K/cmm 01/19/2019 4:48 EDT [facility] Type of Diff: Automated 01/19/2019 4:48 T [facility] Blood specimen (specimen) BLOOD SPECIMEN / Unknown 01/19/2019 4:39 EDT 01/19/2019 4:41 EDT us Good Small MD PACKAGES & DNA PROBE ORDERA BLES Final Result Performing Organization Address [facility] Co de Phone Number [facility] [address] [place] [address] * (ABNORMAL) CREATININE (01/19/2019 4:39 EDT) Creatinine 0.64(L) 0.66 - 1.25 mg/dl 01/19/2019 5:21 EDT [facility] GFR, Calculated 96 >60 ml/min/1.7 3m2 01/19/2019 5:21 T [facility] Comment: eGFR calculated using CKD-EPI equation for non Americans. Multiply eGFR by 1.16 for Americans. Blood specimen (specimen) BLOOD SPECIMEN / Unknown 01/19/2019 4:39 EDT 01/19/2019 4:41 EDT us Good Small MD CHEMISTRY & BLOOD GAS ORDER KAYLIE Final Result Performing Organization Address City/[facility]/ZIP Co de Phone Number [facility] [address] [place] [address] * BUN (01/19/2019 4:39 EDT) BUN 11 10 - 26 mg/dl 01/19/2019 5:21 EDT [facility] Blood specimen (specimen) BLOOD SPECIMEN / Unknown 01/19/2019 4:39 EDT 01/19/2019 4:41 EDT us Good Small MD CHEMISTRY & BLOOD GAS ORDER KAYLIE Final Result Performing Organization Address [facility] de Phone Number [facility] [address] [place] [address] * ELECTROLYTES (01/19/2019 4:39 EDT) Sodium 138 136 - 145 mEq/L 01/19/2019 5:21 EDT [facility] Potassium 4.0 3.5 - 5.0 mEq/L 01/19/2019 5:21 EDT [facility] Chloride 105 96 - 110 mEq/L 01/19/2019 5:21 EDT [facility] CO2 27 22 - 32 mEq/L 01/19/2019 5:21 EDT [facility] Blood specimen (specimen) BLOOD SPECIMEN / Unknown 01/19/2019 4:39 EDT 01/19/2019 4:41 EDT us Good Small MD CHEMISTRY & BLOOD GAS ORDER KAYLIE Final Result Performing Organization Address [facility] de Phone Number [facility] [address] [place] [address] * (ABNORMAL) COMPLETE BLOOD COUNT (01/18/2019 14:39 EDT) WBC 10.39 4.0 - 10.4 K/cmm 01/18/2019 14:57 EDT [facility] RBC 4.07(L) 4.36 - 5.78 M/cmm 01/18/2019 14:57 EDT [facility] Hemoglobin 13.2(L) 13.8 - 17.3 gm/dl 01/18/2019 14:57 EDT [facility] HCT 37.6(L) 39.5 - 50.2 % 01/18/2019 14:57 EDT [facility] SERVICES MCV 92 81 - 95 fl 01/18/2019 14:57 EDT [facility] MCH 32.4 27.6 - 33.0 pg 01/18/2019 14:57 EDT [facility] MCHC 35.1 32.8 - 36.4 gm/dl 01/18/2019 14:57 EDT [facility] RDW-CV 12.3 <14.2 % 01/18/2019 14:57 EDT [facility] RDW-SD 42.2 <46.0 fl 01/18/2019 14:57 T [facility] PLT 164 141 - 377 K/cmm 01/18/2019 14:57 T [facility] MPV 10.6 9.5 - 12.7 fl 01/18/2019 14:57 EDT [facility] Blood specimen (specimen) BLOOD SPECIMEN / Unknown 01/18/2019 14:39 EDT 01/18/2019 14:45 EDT us Chinedu Gonzalez MD HEMATOLOGY & PF4 ORDERABL ES Final Result Performing Organization Address City/State/[facility] Co de Phone Number [facility] [address] [place] [address] * CERVICAL SPINE 1 VIEW (01/18/2019 13:47 [...] are seen. Caleb Ahumada MD IMG DIAGNOSTIC IMAGING OR DERABLES Final Result * CERVICAL SPINE 1 VIEW (01/18/2019 9:44 [...] above interpretation and agree with the findings. us Caleb Ahumada MD [facility] DIAGNOSTIC IMAGING OR DERABLES Final Result * CERVICAL SPINE 1 VIEW (01/18/2019 8:40 [...] the findings. Procedure Note Zaid Avila MD, - 01/18/2019 CERVICAL SPINE, CERVICAL SPINE 01/18/2019 [...] agree with the findings. Caleb Ahumada MD [facility] DIAGNOSTIC IMAGING OR DERABLES Final Result * TYPE AND SCREEN (01/18/2019 6:30 EDT) ABO A [facility] BLOOD [facility] Rh Factor Positive [facility] Antibody Screen Negative [facility] Specimen Expires: 01/21/2019 @ 23:59 [facility] 01/18/2019 6:30 EDT us Caleb Ahumada MD BLOOD BANK TESTS Final Re sult [facility] [address] [place] [address] * ECG REPORT - SCANNED (01/05/2019 16:48 EDT) 01/05/2019 16:4 8 EDT us Scan 2 Clinical Support Nurse PROCEDURE/MINOR SURGICAL OR DERABLES Final Result documented in this [...] EDT 25 mcg HYDROmorphone 1 mg/ml (DILAUDID) FURRIER DESIGNER syringe, 30 ml intravenous, FURRIER DESIGNER, Starting on Wed01/18/19 at 1530, Until Verna 01/19/19 at 1231, See PRN bolus orders for breakthrough pain. CLICK to see order details, Routine, FURRIER DESIGNER Dose (mg): 0.2, Lockout Interval (minutes): 10, [...] may reflect changes made after this encounter. metoprolol XL (TOPROL-XL) 25 mg tablet Take [...] 2054 (Given - Provider: Nestor Broussard RN) 0014 (Not Given - Provider: Brooklyn Calabrese RN - Reason: Patient/family refused)0524 (Given - Provider: Brooklyn Calabrese RN)1152 (Given - Provider: Good Reardon RN)1736 (Given - Provider: Good Reardon RN) 0012 (Given - Provider: Aracelis Pierre RN)0545 (Given - Provider: Aracelis Pierre RN)1123 (Given - Provider: Good Reardon, RN)1800 (Canceled Entry - Provider: Batch Job User Admin - Comment: Automatically canceled at discontinue of medication order) atorvastatin (LIPITOR) tablet 10 mg 10 mg, oral, DAILY, First dose on Wed01/19/19 at 0900, Until Discontinued, Routine 0819 (Given - Provider: Luz Castorena RN) 0854 (Given - Provider: Good Reardon, RN) ceFAZolin (ANCEF) syringe 2 g (COMPLETED) 2 g, intravenous, Administer over 10 Minutes, PRE-OP ONCE, 1 dose, On Wed01/18/19 at 0645, Routine, Pre-Op DOS Rx Approved 0805 (Given by Other - Provider: Bal Bose RN - Comment: given in OR by YVETTE Amaro) ceFAZolin (ANCEF) syringe 2 g (COMPLETED) 2 g, intravenous, Administer over 10 Minutes, INTRA-OP ONCE, 1 dose, On Wed01/18/19 at 1200, Routine 1132 (Given by Other - Provider: Bal Bose RN - Comment: Given by Angie Bill, anesthesia in OR) cholecalciferol (Vitamin D3) tablet 1,000 Units 1,000 Units, oral, DAILY, First dose on Wed01/18/19 at 1845, Until Discontinued, Routine 1826 (Not Given - Provider: Good Reardon RN - Reason: Patient/family refused) 0819 (Given - Provider: Luz Castorena RN) 0852 (Given - Provider: Good Reardon, RN) docusate sodium (COLACE) capsule 100 mg 100 mg, oral, 2 TIMES DAILY, First dose on Wed01/18/19 at 2100, Until Discontinued, Routine, Release 2054 (Given - Provider: Nestor Broussard RN) 0820 (Given - Provider: Luz Castorena, LAUREL)2021 (Given - Provider: Pedro White, LAUREL) 0852 (Given - Provider: Good Reardon, LAUREL) metoprolol (LOPRESSOR) injection 2 mg (COMPLETED) 2 mg, intravenous, Once (Without Time Specified), 1 dose, Starting on Wed01/18/19 at 1413, Until Wed01/18/19 at 1431, Routine 1431 (Given - Provider: Sarah Hernandez RN) metoprolol XL (TOPROL-XL) tablet 25 mg 25 mg, oral, DAILY, First dose on Wed01/19/19 at 0900, Until Discontinued, Routine 2021 (Given - Provider: Pedro White, RN) 0852 (Given - Provider: Good Reardon, RN) Multivitamins with Minerals tablet 1 Tab 1 Tablet, oral, DAILY, First dose on Wed01/18/19 at 1430, Until Discontinued, Routine, Release 1826 (Not Given - Provider: Good Reardon, RN - Reason: Patient/family refused) 0820 (Given [...] Release 1436 (New Bag - Provider: Sarah Hernandez, RN)2303 (Rate Documented - Provider: Nestor Broussard, RN) 0100 (Rate Documented - Provider: Brooklyn Calabrese, RN)0400 (Rate Documented - Provider: Brooklyn Calabrese, RN)0700 (Completed - Provider: Good Reardon, LAUREL) HYDROmorphone 1 mg/ml (DILAUDID) FURRIER DESIGNER syringe, 30 ml (CANCELED) intravenous, FURRIER DESIGNER, Starting on Wed01/18/19 at 1530, Until Wed01/19/19 at 1231, See PRN bolus orders for breakthrough pain. CLICK to see order details, Routine, FURRIER DESIGNER Dose (mg): 0.2, Lockout Interval (minutes): 10, Maximum Limit (mg/hr): 1.2 1556 (New Bag - Provider: Sarah Hernandez, LAUREL) lactated ringers (LR) infusion (CANCELED) 30 mL/hr, intravenous, CONTINUOUS, Starting on Wed01/18/19 at 0645, Until Wed01/18/19 at 1946, Routine, Pre-Op DOS Rx Approved 0702 (New Bag - Provider: Gladys Alvarado, LAUREL) lactated ringers (LR) infusion (CANCELED) at 75 mL/hr, intravenous, CONTINUOUS, Starting on Wed01/18/19 at 1345, Until Wed01/18/19 at 1745, Routine, Recovery (only) 1405 (Rate Documented - Provider: Sarah Hernandez, RN) PRN Medication Order 01/18/2019 01/19/2019 01/20/2019 bisacodyl [...] Recovery (only) 1431 (Given - Provider: Sarah Hernandez RN)1502 (Given - Provider: Sarah Hernandez, LAUREL) hydrALAzine [...] Latoya Palacios RN)1831 (Given - Provider: Good Reardon RN) 0855 (Given - Provider: Good Reardon RN)1607 (Given - Provider: Good Reardon RN) methocarbamol (ROBAXIN) tablet 750 mg (CANCELED) 750 mg, oral, EVERY 8 HOURS PRN, Starting on Wed01/18/19 at 1406, Until Wed01/18/19 at 1946, Other, muscle spasms, Routine, Release 1445 (Given - Provider: Sarah Hernandez, LAUREL) ondansetron (PF) (ZOFRAN) injection 4 mg 4 [...] solu tion unit dose cup 995 mg 01/18/2019 acetaminophen (TYLENOL) suppository 650 mg 2 01/18/2019 acetaminophen (TYLENOL) tablet 1,000 mg 1 0 01/18/2019 acetaminophen (TYLENOL) tablet 650 mg atropine 0.1 mg/mL syringe 0.5 mg 019 bisacodyl (DULCOLAX) suppository 10 mg calcium carbonate (TUMS) 200 mg calcium (500 mg) per chewable tablet tablet,chewable 1 Tab 01/18/2019 diphenhydrAMINE (BENADRYL) i njection 12.5 mg 01/18/2019 hydrALAzine (APRESOLINE) 10 mg in sodium chloride (NS) 0.9 % 50 mL IVPB 01/18/2019 HYDROmorphone (PF) (DILAUDID ) 0.5 mg/0.5 mL syringe 0.3-0.5 mg 01/18/2019 meperidine (PF) (DEMEROL) in jection 12.5 mg 01/18/2019 naloxone (NARCAN) injection 0.2 mg 2018 ondansetron (PF) (ZOFRAN) injection 4 mg 2 01/18/2019 oxyCODONE (ROXICODONE) immed iate release tablet 5-10 mg 1 01/18/2019 oxyCODONE (ROXICODONE) immed iate release tablet 5-15 mg 1 01/18/2019 phenylephrine HCl in 0.9% Na Cl (NEO_SYNEPHRINE) 20 mg/250 mL (80 mcg/mL) infusion solution 1 01/18/2019 Nursing Count Last Ordered Date First Orde red Date ACTIVITY INSTRUCTIONS 1 01/20/2019 BATHING INSTRUCTIONS 1 01/20/2019 DRIVING INSTRUCTIONS 1 01/20/2019 LIFTING INSTRUCTIONS 1 01/20/2019 WOUND CARE INSTRUCTIONS 1 01/20/2019 CONTRAINDICATION TO ANTICOAG ULATION THERAPY 1 01/18/2019 INSERT HWANG CATHETER 1 01/18/2019 PLACE ANTI-EMBOLISM STOCKINGS 1 01/18/[address] PLACE SEQUENTIAL COMPRESSION DEVICE 1 01/18 OT Count Last Ordered Date First Orde red Date OT EVALUATION AND TREAT 1 01/18/2019 PT Count Last Ordered Date First Orde red Date PT EVALUATION AND TREAT 1 01/18/2019 Admission Count Last Ordered Date First Orde red Date STATUS: INPATIENT DOSA/DOPA DAY OF SURGERY/PROCEDURE ADMISSION 1 01/18/2019 Transfer Count Last Ordered Date First Orde red Date NOTIFY PPS OF DISCHARGE COMPLETE 1 01/21/20 19 NOTIFY PPS PATIENT ARRIVAL IN PACU 1 2018 NOTIFY PPS PATIENT TRANSFERRED OUT OF PACU 1 01/18/2019 PPS NOTIFICATION OF PATIENT ARRIVAL ON UNIT 1 01/18/2019 Discharge Count Last Ordered Date First Orde red Date DISCHARGE PATIENT 1 01/20/2019 Legal Count Last Ordered Date First Orde red Date MISCELLANEOUS DISCHARGE INSTRUCTIONS 2 12/27 documented in this encounter Care Teams Truck Trailer Mechanic Relationship Specialty Start Date End Date Garcia Hugo MD [address] [place] [address] PCP - General 09/03/09 documented as of this encounter
--- OUTSIDE RECORDS SUMMARY | 2024-07-19 13:48 | XMS_ITS | Encounter Summary ---
Author Organization [facility] Address [address] [place] [address] Care Team Providers Care Good Humor Vendor Name Role Phone Garcia Gonzales MD Primary Care Provider [phone] Encounter Details Date Type Department Care Team (Late st Contact Info) Description 01/18/2019 Results Only Imaging [facility] Neurosurgery - [address] [address] Caleb Ahumada MD [address] [place] [address], [address] [place] [phone] Social History Tobacco Use Types Packs/Day Years [...] 10:53 EDT Non Reportable Exam Procedure Note BELT PICKER, IMAGING - 01/18/2019 Non Reportable Exam Caleb Ahumada MD IMG FLUOROSCOPY ORDERABLE S Final Result * CERVICAL SPINE 2-3 VIEWS (01/18/2019 10:51 EDT) Anatomical Region Laterality Modality Other 01/18/2019 10:5 1 EDT Narrative 01/18/2019 10:51 EDT Non Reportable Exam Procedure Note BELT PICKER, IMAGING - 01/18/2019 Non Reportable Exam Caleb Ahumada MD IMG DIAGNOSTIC IMAGING OR DERABLES Final Result documented in this encounter Visit Diagnoses Not on filedocumented in this encounter Care Teams Good Humor Vendor Relationship Specialty Start Date End Date Garcia Gonzales MD [address] [place] [address] PCP - General 09/03/09 documented as of this encounter
--- OUTSIDE RECORDS SUMMARY | 2024-07-19 13:48 | XMS_ITS | Encounter Summary ---
Author Organization [facility] Address [address] [place] [address] Care Team Providers Care Bead Forming Machine Operator Name Role Phone Garcia Gonzales MD Primary Care Provider [phone] Reason for Visit * Reason Onset Date Comments Suture / Staple Removal 01/25/2019 Encounter Details Date Type Department Care Team (Late st Contact Info) Description 01/25/[address] [facility] Neurosurgery - [address] [address] Brigette Moser RN Suture / Staple Removal [...] 01/19/2019 1:00 EDT Brooklyn Murray RN documented as of this encounter Mental Status * Because of a physical, mental, or emotional condition, do you have serious difficulty concentrating, remembering, or making decisions? (5 years old or older) Answer Entry Date Author No 01/19/2019 1:00 EDT Brooklyn Murray RN documented in this encounter Miscellaneous Notes * Telephone Encounter - Brigette Moser RN - 01/25/2019 1010 EDT Brandee from [facility] called for an to remove kathrine. Claims Collector advised 02/01/19 or after. documented in this encounter Plan of Treatment Not on file documented as of this encounter Visit Diagnoses Not on filedocumented in this encounter Care Teams Bead Forming Machine Operator Relationship Specialty Start Date End Date Garcia Gonzales MD [address] [place] [address] PCP - General 09/03/09 documented as of this encounter
--- OUTSIDE RECORDS SUMMARY | 2024-07-19 13:48 | XMS_ITS | Encounter Summary ---
Author Organization [facility] Address [address] [place] [address] Care Team Providers Care Child Welfare Specialist Name Role Phone Garcia Gonzales MD Primary Care Provider [phone] Encounter Details Date Type Department Care Team (Late st Contact Info) Description 01/04/2019 Pre-Procedure Orders Encounter [facility] Neurosurgery - Main [place] [address] [place], [place] [id number] Zaynab Hernández PA-C [address] [phone] Cervical spondylosis with myelopathy (Primary Dx); Cervical [...] myelopathy documented in this encounter Care Teams Child Welfare Specialist Relationship Specialty Start Date End Date Garcia Gonzales MD [address] [place] [address] PCP - General 09/03/09 documented as of this encounter
--- OUTSIDE RECORDS SUMMARY | 2024-07-19 13:48 | XMS_ITS | Encounter Summary ---
Author Organization [facility] Address [address] [place] [address] Care Team Providers Care Industrial Twisting Machine Operator Name Role Phone Garcia Gonzales MD Primary Care Provider [phone] Reason for Referral * Radiology Services (Routine) - New Request Specialty Diagnoses / Procedures Referred By Contac t Referred To Contact Diagnoses Cervical arthritis with myelopathy Procedures CERVICAL SPINE 4 OR MORE VIEWS Caleb Ahumada MD Phone: tel: fax: Referral ID Status Reason Start Date Expiration Date V isits Requested Visits Authorized [id number] New Request 11/22/2018 1 1 * Radiology Services (Routine) - Authorization Not Required Specialty Diagnoses / Procedures Referred By Contac t Referred To Contact Diagnoses Cervical arthritis with myelopathy Procedures MR CERVICAL SPINE WO CONTRAST Caleb Ahumada MD Phone: tel: fax: Referral ID Status Reason Start Date Expiration Date Visits Requested Visits Authorized [id number] Authorization Not Required 11/22/2018 1 1 Reason for Visit * Reason Comments Back Pain LBP * Consult (Routine) - Closed Specialty Diagnoses / Procedures Referred By Contac t Referred To Contact Neurosurgery Diagnoses Lumbar stenosis Mehdi Matthews MD [address] [place] [address] Phone: tel: fax: Caleb Ahumada MD Phone: tel: fax: Referral ID Status Reason Start Date Expiration Date Visits Re quested Visits Authorized [id number] Closed 1 1 Encounter Details Date Type Department Care Team (Late st Contact Info) Description 11/22/2018 11:45 EDT Office Visit [facility] Neurosurgery - [facility] [address] [place] [address] Caleb Ahumada MD [address] [place] [address], [address] [place] [address] Cervical arthritis with myelopathy (Primary Dx); [...] SOCIAL HISTORY: 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 He does not use tobacco. REVIEW OF SYSTEMS: Notable for intermittent hand cramping when reading the newspaper, as well as subjective decrease in strength in both hands. PHYSICAL EXAMINATION: Reveals a stocky man in no outward distress. He has a steady gait. He has full power in the deltoid, biceps, triceps, transfer pumper, iliopsoas, quadriceps, dorsiflexors, EHL, and plantar flexors. [...] were answered. Twenty-five minutes of this 50-minute [id number] visit were spent in patient counseling. documented [...] HISTORY: M48.061-Spinal stenosis, lumbar region without neurogenic [id number]; lumbar stenosis COMPARISON: Lumbar MRI outside hospital [...] HISTORY: M48.061-Spinal stenosis, lumbar region without neurogenic [id number]; lumbar stenosis COMPARISON: Lumbar MRI outside hospital [...] is present. Caleb Ahumada MD IMG DIAGNOSTIC IMAGING OR DERABLES Final Result documented in this encounter Visit Diagnoses Diagnosis Cervical arthritis with myelopathy- Primary Degenerative scoliosis in adult patient documented in this encounter Historical Medications * This list may reflect changes made after this encounter. acetaminophen (TYLENOL ARTHRITIS PAIN) 650 mg CR [...] 01/10/2019 added in this encounter Care Teams Industrial Twisting Machine Operator Relationship Specialty Start Date End Date Garcia Gonzales MD [address] [place] [address] PCP - General 09/03/09 documented as of this encounter
--- OUTSIDE RECORDS SUMMARY | 2024-07-19 13:48 | XMS_ITS | Encounter Summary ---
Author Organization [facility] Address [address] [place] [address] Care Team Providers Care Panel Maker Name Role Phone Garcia Gonzales MD Primary Care Provider [phone] Encounter Details Date Type Department Care Team (Late st Contact Info) Description 06/04/2011 Results Only [facility] Laboratory Services - [facility] [address] [place], [place] [address] Garcia Gonzales MD [address] [place], [place] [address] Social History Tobacco Use Types Packs/Day Years [...] Associated Diagnosis Comments SURGICAL PATHOLOGY Routine 06/04/2011 0:00 EST documented in this encounter Results * SURGICAL PATHOLOGY (06/04/2011 0:00 EST) Pathology Report: SURGICAL PATHOLOGY REPORT Reports generated via electronic interface contain original data; however they are lacking the format of the original report. Caution should be taken when reading/interpreti ng unformatted reports. Name: ? SINDY SAM Ana Maria ? Accession #: ? [id number] ? : ? 1945 (Age: 66) ??M [...] pigment. ??Deeper sections show similar features. ??(Dr. Hernandez)/ana maria Document reviewed and electronically signed by: FELIX [...] Gross Description: ? Received in formalin labelled Flaco, Sindy and R shoulder is a 0.7 x 0.4 x 0.1 cm shave biopsy of skin with a centrally located, 0.4 x 0.2 cm, reardon-brown macule. ??The specimen is bisected and entirely submitted in one cassette. (Dr. Lott)/[facility] End of Report KAVITA DUBON 06/04/2011 06/05/2011 16: 02 EST us Garcia Gonzales MD PATHOLOGY ORDERABLES Final Res ult KAVITA DUBON [address] [place] [address] documented in this encounter Visit Diagnoses Not on filedocumented in this encounter Care Teams Panel Maker Relationship Specialty Start Date End Date Garcia Gonzales MD [address] [place] [address] PCP - General 09/03/09 documented as of this encounter
--- OUTSIDE RECORDS SUMMARY | 2024-07-19 13:48 | XMS_ITS | Encounter Summary ---
Author Organization [facility] Address [address] [place] [address] Care Team Providers Care Answering Service Telephone Operator Name Role Phone Garcia Gonzales MD Primary Care Provider [phone] Reason for Visit * Reason Onset Date Comments Discuss Surgery 12/14/2018 Encounter Details Date Type Department Care Team (Late st Contact Info) Description 12/14/2018 Telephone [facility] Neurosurgery - Main [address] [address] Brigette Moser, LAUREL Discuss Surgery Social History [...] Encounter - Renea Petersen RN - 12/14/2018 1553 EDT Patient Education Topic: C7-T2 laminectomy and [...] on filedocumented in this encounter Care Teams Answering Service Telephone Operator Relationship Specialty Start Date End Date Garcia Gonzales MD [address] [place] [address] PCP - General 09/03/09 documented as of this encounter
--- OUTSIDE RECORDS SUMMARY | 2024-07-19 13:48 | XMS_ITS | Encounter Summary ---
Author Organization [facility] Address [address] [place] [address] Care Team Providers Care Nuclear Medicine Technician Name Role Phone Garcia Gonzales MD Primary Care Provider [phone] Encounter Details Date Type Department Care Team (Late st Contact Info) Description 12/09/2018 Results Only Imaging [facility] [phone] Unknown, Provider, Social History Tobacco Use Types [...] documented in this encounter Plan of Treatment Pending Results Name Type Priority Associated Diagnoses Date /Time OUTSIDE IMAGES - MR NEURO Imaging 12/09/2018 7:31 EDT documented as of this encounter Visit Diagnoses Not on filedocumented in this encounter Care Teams Nuclear Medicine Technician Relationship Specialty Start Date End Date Garcia Gonzales MD [address] [place] [address] PCP - General 09/03/09 documented as of this encounter
--- OUTSIDE RECORDS SUMMARY | 2024-07-19 13:48 | XMS_ITS | Encounter Summary ---
Author Organization [facility] Address [address] [place] [address] Care Team Providers Care Full Charge Bookkeeper Name Role Phone Garcia Gonzales MD Primary Care Provider [phone] Encounter Details Date Type Department Care Team (Late st Contact Info) Description 06/03/2015 Results Only [facility] [phone] Jasper Shelley, DO [address] [facility] [address] [address] [place], [place] [id number] Social History Tobacco Use Types Packs/Day Years [...] SAM Ana Maria ? Accession #: ? [id number] ? : ? 1945 (Age: 70) ??M [...] 10:51 AM End of Report [facility] LAB[facility]ORY SERVICES 06/03/2015 8:19 EST 06/04/2015 8:19 EST us Jasper Shelley DO PATHOLOGY ORDERABLES Fi nal Result [facility] SERVICES [address] [place] [address] documented in this encounter Visit Diagnoses Not on filedocumented in this encounter Care Teams Full Charge Bookkeeper Relationship Specialty Start Date End Date Garcia Gonzales MD [address] [place] [address] PCP - General 09/03/09 documented as of this encounter
--- OUTSIDE RECORDS SUMMARY | 2024-07-19 13:48 | XMS_ITS | Encounter Summary ---
Author Organization [facility] Address [address] [place] [address] Care Team Providers Care Electrical Prospector Name Role Phone Garcia Gonzales MD Primary Care Provider [phone] Reason for Visit * Reason Onset Date Comments Surgery Scheduling 12/15/2018 Encounter Details Date Type Department Care Team (Late st Contact Info) Description 12/15/2018 Telephone [facility] - [address] [address] Caleb Ahumada MD [address] [place] [address], [address] [place] [phone] Surgery Scheduling Social History Tobacco Use Types [...] surgery with Dr. Ahumada on 01/18/19 at [facility]. Nakul is aware thathe will need to [...] filedocumented in this encounter Care Teams Electrical Prospector Relationship Specialty Start Date End Date Garcia Gonzales MD [address] [place] [address] PCP - General 09/03/09 documented as of this encounter
--- OUTSIDE RECORDS SUMMARY | 2024-07-19 13:48 | XMS_ITS | Encounter Summary ---
Author Organization [facility] Address [address] [place] [address] Care Team Providers Care Supervisor Broadloom Name Role Phone Garcia Gonzales MD Primary Care Provider [phone] Reason for Visit * Reason Onset Date Comments Discuss Surgery 01/16/2019 Encounter Details Date Type Department Care Team (Late st Contact Info) Description 01/16/2019 Telephone [facility] Neurosurgery - Main [place] [address] [place] [address] Brigette Moser RN Discuss Surgery Social History [...] Encounter - Brigette Moser RN - 01/16/2019 2799 EDT The patient phoned to clarify his [...] on filedocumented in this encounter Care Teams Supervisor Broadloom Relationship Specialty Start Date End Date Garcia Gonzales MD [address] [place] [address] PCP - General 09/03/09 documented as of this encounter
--- OUTSIDE RECORDS SUMMARY | 2024-07-19 13:48 | XMS_ITS | Encounter Summary ---
Author Organization [facility] Address [address] [place] [address] Care Team Providers Care Candle Extrusion Machine Operator Name Role Phone Garcia Gonzales MD Primary Care Provider [phone] Reason for Visit * Reason Onset Date Comments Medication Questions 01/23/2019 Post-OP Follow Up 01/23/2019 Encounter Details Date Type Department Care Team (Late st Contact Info) Description 01/23/2019 Telephone [facility] Neurosurgery - [address] [address] Renea Petersen RN Medication Questions [...] Brooklyn Murray RN documented in this encounter Ordered Prescriptions Prescription Sig Dispense Quantity Refills Last Filled Start Date End Date cyclobenzaprine (FLEXERIL) 10 mg tablet Take 1 [...] that the new script was available for steel pickler. Patient was advised that kathrine can be removed on 8/7 and that PT should be able to [...] and see how he does and not steel pickler the new script that is fine but [...] documented as of this encounter Care Teams Candle Extrusion Machine Operator Relationship Specialty Start Date End Date Garcia Gonzales MD [address] [place] [address] PCP - General 09/03/09 documented as of this encounter
[2024-07-19 15:34] LABS: ALT 29 U/L (16-63); AST 22 U/L (15-37)
== END 2024-07-19 13:33 | disposition home or self-care (01) ==
LOC: NCHCN 13:32
PROVIDERS: PCP Family Medicine; Visit Provider Family Medicine
DX: K76.0 Fatty (change of) liver, not elsewhere classified (principal)
CPT/HCPCS: 84450; 84460

== ENCOUNTER 2024-12-18 02:19 | Outpatient (CLI) | payer MEDICARE, OTHER, SELFPAY ==
--- NOTE | 2024-12-18 07:45 | DI.US_ITS ---
Exam(s) US RENAL EXAM: US RENAL CLINICAL HISTORY: monitoring cyst/mass,bph with luts,hematuria,n40.1,n28.89. TECHNIQUE: Mast scale imaging and color doppler were used. COMPARISON: US US RENAL from 12/15/2023 FINDINGS: Right kidney: 12.8cm Echogenicity: Normal Hydronephrosis: No Cyst or mass: Stable 3.7 centimeter cyst at the upper pole. Nephrolithiasis: No Left kidney: 12.1cm Echogenicity: Normal Hydronephrosis: No Cyst or mass: Stable 11 millimeters cyst upper pole. Nephrolithiasis: No Bladder:Right ureteral jet was not visualized. The left ureteral jet was visualized. Prevoid vol:133 cc Postvoid vol:0 cc Prostate volume 78 cc. IMPRESSION: Stable simple bilateral renal cysts. No evidence of stones or hydronephrosis. Enlarged prostate. DATA REPOSITORY:
== END 2024-12-18 02:39 ==
LOC: DI 02:19
PROVIDERS: PCP Family Medicine; Visit Provider Nurse Practitioner Gerontology
DX: N40.1 Benign prostatic hyperplasia with lower urinary tract symptoms (principal); R31.9 Hematuria, unspecified; N28.89 Other specified disorders of kidney and ureter
CPT/HCPCS: 76770

== ENCOUNTER → 2024-12-21 09:52 | Outpatient (BNVA) | payer MEDICARE, OTHER, SELFPAY | PROVIDERS: PCP Family Medicine; Visit Provider Nurse Practitioner Gerontology | DX: N40.1 Benign prostatic hyperplasia with lower urinary tract symptoms (principal); N28.89 Other specified disorders of kidney and ureter; R31.9 Hematuria, unspecified | CPT/HCPCS: 99213 ==

== ENCOUNTER 2025-02-07 14:45 | Outpatient (REF) | payer MEDICARE, OTHER, SELFPAY ==
[2025-02-07 20:55] LABS: Abs Immature Grans 0.01 10^3/uL (0.0-0.06); HCT 45.0 % (40.0-50.0); HGB 15.3 g/dL (13.5-17.5); Immature Grans % 0.2 %; MCH 32.1 pg (27.0-33.0); MCHC 34.0 % (32.0-36.0); MCV 94 fL (80-95); MPV 10.9 fL (8.0-11.0); Platelet Count 145 10^3/uL (130-400); RBC 4.77 10^6/uL (4.36-5.78); RDW 12.0 % (11.8-14.1); RDW-SD 42.0 fL; WBC 5.33 10^3/uL (4.4-10.8)
[2025-02-07 21:14] LABS: ALT 35 U/L (16-63); AST 26 U/L (15-37); Albumin 3.9 g/dL (3.4-5.0); Alkaline Phosphatase 64 U/L (46-116); Anion Gap 10.7 mmol/L (3-11); BUN 18 mg/dL (7-18); Bilirubin, Total 1.0 mg/dL (0.2-1.0); CO2 25.3 mmol/L (21.0-32.0); Calcium 8.9 mg/dL (8.5-10.1); Chloride 105 mmol/L (98-107); Estimated GFR 92.57 (mL/min/1.73m2); Glucose 106 mg/dL (74-106); Magnesium 1.9 mg/dL (1.8-2.4); Potassium 4.2 mmol/L (3.5-5.1); Sodium 141 mmol/L (136-145); Total Protein 6.9 g/dL (6.4-8.2)
[2025-02-08 19:08] LABS: LDL CHOLESTEROL 102 mg/dL (<100)
== END 2025-02-07 14:46 | disposition home or self-care (01) ==
LOC: NCHCN 14:45
PROVIDERS: PCP Family Medicine; Visit Provider Family Medicine
DX: E78.5 Hyperlipidemia, unspecified (principal); I48.0 Paroxysmal atrial fibrillation
CPT/HCPCS: 80053; 83721; 83735; 85025

== ENCOUNTER 2025-05-14 12:40 | Outpatient (REF) | payer MEDICARE, OTHER, SELFPAY ==
--- NOTE | 2025-05-14 13:50 | SKI_PTH ---
PATIENT: Nakul Sam LOC: [facility] U#:[id number] AGE/SX: 80/M ROOM: RE05/14/[address]: Isaac Childers : 1945 BED: DIS: 05/14/2025 SPEC #: [id number] RECD: 05/15/25 12:49 STATUS: CLARISSA RELesia #: [id number] VENICE: 05/14/25 13:[address]: Isaac Childers DEPT: Surgical Specimen RECD BY: Ashanti Dsouza Tissues: 1 - SKIN BIOPSY(SHAVE/PUNCH) Procedures: SKIN LEVEL 4 Comments: [id number]
== END 2025-05-14 12:41 | disposition home or self-care (01) ==
LOC: NCHCN 12:40
PROVIDERS: PCP Family Medicine; Visit Provider Family Medicine
DX: L82.1 Other seborrheic keratosis (principal); D18.01 Hemangioma of skin and subcutaneous tissue
CPT/HCPCS: 88305